=== PATIENT | female | born 1940 | race Two or more races ===

== ENCOUNTER 2016-06-06 20:40 | Inpatient (IN) | payer MEDICARE, OTHER ==
[~2016-06-06] VITALS: Ht 162.6 cm; Wt 146.0 kg
[~2016-06-06 20:40] MED LIST: ADV25050 INH; AMLO5TAB4 PO; ASPI-664 PO; BEN25 PO; ESCI5TAB PO; EZET10TA3 PO; FLEC100T PO; FURO20TA3 PO; HYDR-3498 PO; LORA1TAB PO; LOSA50TA6 PO; MONT10TA21 PO; MTF1000T PO; NASO17 NASAL; POTA20TA15 PO; SITA100T8 PO; TIOT18CA IH
[2016-06-06 20:45] VITALS: TEMP 97.8
[2016-06-06] MEDS ORDERED: ASPIRIN 81 MG TAB PO STA (21:00)
[2016-06-06] MEDS ORDERED: ALBUTEROL 0.083% (NEB) 2.5 MG/3 ML AMP HHN STA (21:22)
[2016-06-06] MEDS ORDERED: NITROGLYCERIN (SL) 0.4 MG TAB SL ONE (21:30)
[2016-06-06] MEDS ORDERED: IPRATROPIUM (NEB) 0.5 MG/2.5 ML AMP HHN ONE (21:30)
[2016-06-06 21:33] LABS: ADD SCAN DIFF NO; BASOPHIL # 0.1 10^3/ul (0.0-0.1); BASOPHILS % 0.5 % (0.0-2.0); EOSINOPHILS # 0.2 10^3/ul (0.0-0.5); EOSINOPHILS % 2.2 % (0.0-7.0); HEMATOCRIT 37.2 % (37.0-47.0); HEMOGLOBIN 11.5 g/dl (12.0-16.0); LYMPHOCYTES # 2.3 10^3/ul (0.8-2.9); LYMPHOCYTES % 20.8 % (15.0-51.0); MEAN CORPUSCULAR HEMOGLOBIN 28.8 pg (29.0-33.0); MEAN CORPUSCULAR HGB CONC 30.9 g/dl (32.0-37.0); MEAN PLATELET VOLUME 12.2 fl (7.4-10.4); MONOCYTE # 0.9 10^3/ul (0.3-0.9); MONOCYTES % 7.6 % (0.0-11.0); NEUTROPHIL # 7.7 10^3/ul (1.6-7.5); NEUTROPHILS % 68.5 % (39.0-77.0); PLATELET COUNT 307 10^3/UL (140-415); RED CELL DISTRIBUTION WIDTH 13.2 % (11.5-14.5); WHITE BLOOD COUNT 11.2 10^3/ul (4.8-10.8)
[2016-06-06 21:49] LABS: CHLORIDE 94 mmol/L (97-110); SODIUM 136 mmol/L (135-144)
[2016-06-06 21:50] LABS: POTASSIUM 4.5 mmol/L (3.5-5.1)
[2016-06-06 21:51] LABS: INR 1.02; PROTIME 13.4 Sec (12.2-14.2)
[2016-06-06 21:52] LABS: CREATININE 0.86 mg/dl (0.44-1.00)
[2016-06-06 21:53] LABS: ANION GAP 17 (8-16); BLOOD UREA NITROGEN 20 mg/dl (7-20); CALCIUM 9.7 mg/dl (8.4-10.2); CARBON DIOXIDE 30 mmol/L (21-31); GLUCOSE 149 mg/dl (70-220); PARTIAL THROMBOPLASTIN TIME 30.3 Sec (25.0-35.0)
[2016-06-06 22:02] LABS: B-TYPE NATRIURETIC PEPTIDE 618 PG/ML (0-450)
[2016-06-06 22:08] LABS: TROPONIN-I < 0.012 ng/ml (0.00-0.12)
[2016-06-06] MEDS ORDERED: ONDANSETRON 4 MG INJ IV STA (22:10)
[2016-06-06] MEDS ORDERED: OXYCODONE/ACETAMINOPHEN (10/325) TAB PO ONE (22:30)
[2016-06-06] MEDS ORDERED: morphine 10 MG INJ IV ONE (22:30)
[2016-06-06] MEDS ORDERED: DIPHENHYDRAMINE 50 MG INJ IV ONE (22:30)
[2016-06-06] MEDS ORDERED: LORAZEPAM 2 MG INJ IV ONE (23:00)
[2016-06-07] VITALS (13 sets, daily range): BP systolic 103–148; BP diastolic 51–68; PULSE 50–63; RESP 17–20; Ht 162.6 cm; Wt 146.0 kg
--- NOTE | 2016-06-07 00:04 | RADRPT ---
PROCEDURE: XR, Chest. CLINICAL INDICATION: Chest pain. TECHNIQUE: AP chest COMPARISON: Chest, 10/24/2015. FINDINGS: There is no acute infiltrate in the lungs. No pleural effusion. The heart is enlarged with interst itial pulmonary edema and pulmonary venous congestion. There is calcified atherosclerosis of the ao rtic arch. IMPRESSION: 1. Cardiomegaly with interstitial pulmonary edema/pulmonary venous congestion. Calcified atheroscl erosis of the aortic arch. RPTAT: GG .Frankie Aruajo MD, Date Time Electronically viewed and signed by .Frankie Araujo MD, MD on 06/07/2016 00:04 .Y/
[2016-06-07] MEDS ORDERED: ALBUTEROL 0.083% (NEB) 2.5 MG/3 ML AMP HHN STA (00:43)
--- NOTE | 2016-06-07 00:53 | HP ---
Date/Time of Note Date/Time of Note DATE: 06/07/16 TIME: 00:52 Assessment/Plan VTE Prophylaxis VTE Prophylaxis Intervention: ambulation, anti-embolic stocking VTE Contraindication Reason: peripheral vascular disease Lines/Catheters (ICD-10 Req.) IV Catheter Type (from Nrs): [place] line still needed: No Bernstein in Place (from Nrsg): Yes Cont'd bernstein catheter reason: urinary retention Diagnosis/Etiology Respiratory Failure Acuity: acute on chronic Respiratory Failure Inclusion: hypoxia & hypercapnia Assessment/Plan Assessment/Plan 1. Congestive heart failure exacerbation. 2. Morbid obesity; Obesity hypopnea syndrome. 3. Bradycardia 4. Hypertension, now normotensive. 5. History of having palpitations-now bradycardic; lowest rate 45- now 63bpm. 6. History of having bronchial asthma, now stable. 7. Wound of the postsurgical scar, right-sided abdomen, healed. 8. Status post cholecystectomy. 9. Postmenstrual syndrome. 10. Anxiety. 11. Claustrophobia. 12. Dyslipidemia. 13. Diabetes type 2. 14. History of having carbon dioxide retention. 15. Anemia of chronic disease with recent loss. 16. History of chronic kidney disease, improved. 17. History of having low iron and low magnesium levels. 18. Pain syndrome. 19. Major depression. 20. Altered level of consciousness. 21. Diverticulitis. 22. Left-sided chest pain. 23.carbon dioxide narcosis (Hx of) 24.Trophic changes of both legs with change of a color. 25.Pilling of the skin of nailbeds of both hands with deformities and trace of blood and swelling.26. 26.11 years bedridden 27.Decubitus of t he left gluteal area with mild redness of the calcaneal skin 28.Severe deconditioning 29.Daytime sleepiness 30.Severe krupa of knees, hips ans ankle joints 31.Calcaneal pain. 32.Umbilical reducible hernia 4-5cm in diameter.Postsurgical. 333.Chronic norco,percocet, and other controlled substance user. Time Spent one hour 20 minues. HPI/ROS Admit Date/Time Admit Date/Time Severe progressive shortness of breath for 4 days with sleepiness and bradycardia and uncontrolled bp; left-sided and substernal chest pain. She received nitro spray as well as aspirin in route. nausea-vomiting. 11 years in bedridden condition. Unable to take p.o. medications. When it become intolerable with cp, family decided to call 911. ROS Subjective hx not possible: other (difficulty to express. tearful. Suffering. "My mistake is to be born; My punidhment is to be alive". She expressed hairsh motto. Discussed the soullessness of the statement... 10 minutes.) Constitutional: chills, diaphoresis, disoriented, nausea, poor po, weight change, No fatigue, No febrile, No improved, No no complaints, No other Eyes: discharge, No no complaints, No other, No pain, No redness, No visual change ENT: congestion, dysphagia, sore throat, No bleeding, No discharge, No no complaints, No other, No pain Respiratory: cough, pleuritic pain, shortness of breath, No no complaints, No other, No pain, No sputum, No wheezing Cardiovascular: chest pain, lightheadedness, orthopenea, palpitations, paroxysmal nocturnal dyspnea, No edema, No no complaints, No other Gastrointestinal: constipation, decreased appetite, flatus, nausea, passing stool, No blood, No diarrhea, No no complaints, No other, No pain, No vomiting Genitourinary: dysuria, other (unable tos control urination.) Musculoskeletal: back pain, bone/joint pain, neck pain, restricted range of motion, swelling, No no complaints, No other Skin: bruising, erythema, pruritis, rash, skin lesions, No laceration, No no complaints, No other Neurologic: confusion, dizziness, focal-weakness, No headache, No no complaints, No other, No seizure, No syncope Endocrine: dry skin, other (didn't check.), polydypsia, polyuria, temp intolerance, weight change Lymphatic: No adenopathy, No lymphadema, No no complaints, No other, No tender nodes Psychological: anxiety, confusion, depression, No nl mood/affect, No no complaints, No other, No suicidal Immunologic: pruritis, urticaria PMH/Family/Social Past Medical History Medical History: angina, colitis, congestive heart failure, coronary artery disease, diabetes, diverticulitis, GERD, GI bleed, high cholesterol, hypertension, hypothyroid, pancreatitis, peptic ulcer disease, urinary tract infection Past Surgical History Past Surgical Hx: other (big midline abdominal postsurgiccal scar with umbilical hernia.) Family History Significant Family History: asthma, heart disease, COPD, diabetes, hypertension , lung disease, renal disease, vascular disease Social History Alcohol Use: none Smoking Status: Former smoker Drug Use: none Exam/Review of Systems Vital Signs Vitals Vital Signs Date Time Temp Pulse Resp B/P Pulse Ox O2 Delivery O2 Flow Rate FiO2 06/06/16 23:20 58 20 93 21 06/06/16 20:45 97.8 154/62 Room Air Exam Constitutional: alert, distress, frail, other (tearful, depressed,forgetful, bedridden more than 11 years. Last 2 years only with the help of a children she is able to sit in a wheelchair. Now they can't do that eather. no shower for months. Unasble to perform.), well developed, No non-verbal, No oriented Psych: anxiety, confusion, depression, nl mood/affect (depressed.) Head: atraumatic, normocephalic, No hematomas, No lacerations, No other Eyes: EOMI, nl conjunctiva (pale.), nl lids, No PERRL, No fundi, disc, No icteric, No nl sclera, No other ENMT: mucosa pink and moist, nl external ears & nose, nl lips & teeth ( denturesd.), nl nasal mucosa & septum, tympanic membranes Neck: bruits, jvd, non-tender, thyromegaly Respiratory: clear to auscultation, congested cough, diminished breath sounds, intercostal retraction, labored breathing Cardiovascular: bruits, edema, jugular venous distention (JVD), murmurs/extra sounds, systolic murmur Gastrointestinal: ascites, bowel sounds, distended, nl liver, spleen, other ( extreamely weak anterior abdminal wal comparing with previouse admission. Pannus got bigger. Erythematouse skin over the folded areas of the skin partially covered with powder. Left gluteal area decubitus is covers by dressing. Painful and hot knees bilaterally. Painful calcaneal areas and hips and elbows bilaterally. Multiple foldings of the skin all ocveer the body.), rebound or guarding, soft, surgical scars (midline. Umbilical painful reducable scar.) Genitourinary - Male: CVA tenderness, No discharge, No nl penis, No nl scrotum , No other Extremities: calf tenderness, clubbing, edema, other (All fingernail beds with deformities,inflammation and piiled skin.), pitting pedal edema, tenderness Neurological: confused, focal weakness (righrt more th an left.), lethargic, numbness, reflexes (deminished.) Skin: diaphoresis, ecchymosis, nl turgor (severely defcreased all over.), puncture, rash or lesions, No laceration, No other Lymph: No enlarged, No nl lymph nodes, No nontender, No other Labs Result Diagram: 06/06/16 2100 06/06/16 2100 Medications Medications Current Medications Amlodipine Besylate (Norvasc) 5 mg DAILY PRN PO ELEVATED BLOOD PRESSURE; Start 06/07/16 at 01:00; Status UNV Aspirin (Halfprin) 81 mg DAILY PO ; Start 06/07/16 at 09:00; Status UNV Diphenhydramine HCl (Benadryl) 25 mg QHS PRN PO ITCHING; Start 06/07/16 at 01: 00; Status UNV Escitalopram Oxalate (Lexapro) 81 mg DAILY PO ; Start 06/07/16 at 09:00; Status UNV EZETIMIBE (Zetia) 10 mg DAILY PO ; Start 06/07/16 at 09:00; Status UNV Flecainide Acetate (Tambocor) 100 mg BID PO ; Start 06/07/16 at 01:00; Status UNV Furosemide (Lasix) 20 mg BID PO ; Start 06/07/16 at 01:00; Status UNV Acetaminophen/ Hydrocodone Bitart ([place] (5/325)) 1 tab Q8 PRN PO PAIN; Start 06/07/16 at 01:00; Status UNV Lorazepam (Ativan) 1 mg BID PRN PO ANXIETY; Start 06/07/16 at 01:00; Status UNV Losartan Potassium (Cozaar) 50 mg BID PO ; Start 06/07/16 at 01:00; Status UNV Metformin HCl (Glucophage) 1,000 mg BID PO ; Start 06/07/16 at 01:00; Status UNV Montelukast Sodium (Singulair) 10 mg HS PO ; Start 06/07/16 at 21:00; Status UNV Potassium Chloride (Klor-Con 20) 20 meq DAILY PO ; Start 06/07/16 at 09:00; Status UNV Salmeterol Xinafoate/ Fluticasone (Advair 250/50 Diskus) 1 inh BID INH ; Start 06/07/16 at 01:00; Status UNV Tiotropium [place] (Spiriva) 1 inh DAILY INH ; Start 06/07/16 at 09:00; Status UNV Miscellaneous Information 1 spray DAILY NASAL ; Start 06/07/16 at 09:00; Status UNV Miscellaneous Information 100 mg DAILY PO ; Start 06/07/16 at 09:00; Status UNV STONE HERNANDEZ MD Jun 07, 2016 00:53
[2016-06-07] MEDS ORDERED: metFORMIN 500 MG TAB PO SCH (01:00)
[2016-06-07] MEDS ORDERED: AMLODIPINE 5 MG TAB PO PRN (01:00)
[2016-06-07] MEDS: SALMETEROL/FLUTICASONE 250/50 INHA INH SCH ×3 (01:00→20:38)
[2016-06-07] MEDS ORDERED: FLECAINIDE 100 MG TAB PO SCH (01:00)
[2016-06-07] MEDS ORDERED: ACETAMINOPHEN 325 MG TAB PO PRN (01:00)
[2016-06-07] MEDS ORDERED: DIPHENHYDRAMINE 25 MG CAP PO PRN (01:00)
[2016-06-07] MEDS ORDERED: METHYLPREDNISOLONE 125 MG INJ IV ONE (01:00)
[2016-06-07] MEDS ORDERED: LORAZEPAM 1 MG TAB PO PRN (01:00)
[2016-06-07] MEDS ORDERED: ONDANSETRON 4 MG INJ IV PRN (01:00)
--- NOTE | 2016-06-07 01:03 | ERA ---
ER Documentation Chief Complaint Date/Time DATE: 06/07/16 TIME: 00:57 Chief Complaint BIBA RA 39, CP X4 days,received aspirin 162 mg PO & nitro 1 spray,bodyaches HPI This 76-year-old female presented emergency room with progressive shortness of breath for 4 days. She also has left-sided and substernal chest pain. She received nitro spray as well as aspirin in route. According to paramedics her blood pressure was extremely high. She has a history of diastolic heart failure as well as COPD. She says that she also has some nausea. Denies vomiting abdominal pain or fevers ROS All systems reviewed and are negative except as per history of present illness. Medications Home Meds Active Scripts Furosemide* (Furosemide*) 20 Mg Tablet, 20 MG PO BID, #30 TAB Prov:TUCKER JUNIOR MD 08/15/15 Reported Medications Diphenhydramine Hcl* (Benadryl*) 25 Mg Cap, 25 MG PO QHS Y for ITCHING, CAP 10/21/15 Losartan Potassium* (Losartan Potassium*) 50 Mg Tablet, 50 MG PO BID, TAB 08/08/15 Lorazepam* (Lorazepam*) 1 Mg Tablet, 1 MG PO BID Y for ANXIETY, #30 TAB 04/15/15 Escitalopram Oxalate* (Lexapro*) 5 Mg Tablet, PO DAILY, #30 TAB 04/15/15 Amlodipine Besylate* (Norvasc*) 5 Mg Tablet, 5 MG PO DAILY Y for ELEVATED BLOOD PRESSURE, TAB 01/04/15 Potassium Chloride* (K-Dur*) 20 Meq Tab.prt.sr, 20 MEQ PO DAILY, TAB.SA 07/21/14 Hydrocodone Bit-Acetaminophen* ([place]*) 5-325 Mg Tab, 1 TAB PO Q8 Y for PAIN, TAB 07/11/14 Tiotropium [place]* (Spiriva*) 18 Mcg Cap.w.dev, 1 INH IH DAILY, EA 07/11/14 Ezetimibe* (Zetia*) 10 Mg Tablet, 10 MG PO DAILY, TAB 07/11/14 Metformin* (Glucophage*) 1,000 Mg Tablet, 1000 MG PO BID, TAB 07/11/14 Sitagliptin* (Januvia*) 100 Mg Tablet, 100 MG PO DAILY, TAB 07/11/14 Montelukast Sodium* (Singulair*) 10 Mg Tablet, 10 MG PO HS, TAB 07/11/14 Mometasone Furoate* (Nasonex*) 50 Mcg/[place] - 17 Gm [place].pump, 1 SPRAY NASAL DAILY, SPRAY 07/11/14 Salmeterol Xinaf/Fluticasone* (Advair*) 250-50 Diskus Inhaler, 1 INH INH BID, INH 07/11/14 Flecainide Acetate* (Flecainide Acetate*) 100 Mg Tablet, 100 MG PO BID, TAB 07/11/14 Aspirin (Low Dose Aspirin) 81 Mg Tablet.dr, 81 MG PO DAILY 07/11/14 Allergies Allergies: Coded Allergies: No Known Allergy (Verified , 10/21/15) PMhx/Soc History of Surgery: Yes (CHOLECYSTECTOMY) Anesthesia Reaction: No Hx Neurological Disorder: No Hx Respiratory Disorders: No Hx Cardiac Disorders: Yes (HTN,AV BLOCK,CHF) Hx Psychiatric Problems: No Hx Miscellaneous Medical Probl: Yes ( anxiety, DM) Hx Alcohol Use: No Hx Substance Use: No Hx Tobacco Use: No Smoking Status: Never smoker Physical Exam Vitals Vital Signs Date Time Temp Pulse Resp B/P Pulse Ox O2 Delivery O2 Flow Rate FiO2 06/06/16 23:20 58 20 93 21 06/06/16 20:45 97.8 57 18 154/62 95 Room Air 06/06/16 20:43 97.8 57 18 177/77 93 Physical Exam Const: [] Moderate distress, intermittent tachypnea, morbidly obese Head: Atraumatic Eyes: Normal Conjunctiva ENT: Normal External Ears, Nose and Mouth. Neck: Full range of motion..~ No meningismus. Resp: Decreased breath sounds bilaterally, mild expiratory wheezes audible through thick layer of subcutaneous tissue.. Cardio: Regular bradycardia, no murmurs Abd: Soft, obese, non tender, non distended. Normal bowel sounds Skin: No petechiae or rashes Back: No midline or flank tenderness Ext: No cyanosis, or edema. Difficult to determine because of patient's extreme habitus. Neur: Awake and alert and oriented 3, no focal deficit Psych: Normal Mood and Affect Result Diagram: 06/06/16 2100 06/06/16 2100 Results 24 hrs Laboratory Tests Test 06/06/16 21:00 White Blood Count 11.210^3/ul Red Blood Count 4.0010^6/ul Hemoglobin 11.5g/dl Hematocrit 37.2% Mean Corpuscular Volume 93.0fl Mean Corpuscular Hemoglobin 28.8pg Mean Corpuscular Hemoglobin Concent 30.9g/dl Red Cell Distribution Width 13.2% Platelet Count 32480^3/UL Mean Platelet Volume 12.2fl Neutrophils % 68.5% Lymphocytes % 20.8% Monocytes % 7.6% Eosinophils % 2.2% Basophils % 0.5% Nucleated Red Blood Cells % 0.0/100WBC Neutrophils # 7.710^3/ul Lymphocytes # 2.310^3/ul Monocytes # 0.910^3/ul Eosinophils # 0.210^3/ul Basophils # 0.110^3/ul Nucleated Red Blood Cells # 0.010^3/ul Prothrombin Time 13.4Sec Prothrombin Time Ratio 1.0 INR International Normalized Ratio 1.02 Activated Partial Thromboplast Time 30.3Sec Sodium Level 136mmol/L Potassium Level 4.5mmol/L Chloride Level 94mmol/L Carbon Dioxide Level 30mmol/L Anion Gap 17 Blood Urea Nitrogen 20mg/dl Creatinine 0.86mg/dl Glucose Level 149mg/dl Calcium Level 9.7mg/dl Troponin I < 0.012ng/ml B-Type Natriuretic Peptide 618PG/ML Current Medications Medications (Trade) Dose Ordered Sig/[place] Route PRN Reason Start Time Stop Time Status Last Admin Dose Admin Aspirin (Aspirin) 162 mg ONCE STAT PO 06/06/16 21:00 06/06/16 21:03 DC 06/06/16 21:29 Nitroglycerin (Nitroglycerin (Sl Tab) 0.4 Mg) 1 tab ONCE ONCE SL 06/06/16 21:30 06/06/16 21:31 DC 06/06/16 21:29 Albuterol (Proventil 0.083% (Neb)) 5 mg ONCE STAT HHN 06/06/16 21:22 06/06/16 21:24 DC 06/06/16 23:20 Ipratropium [place] (Atrovent 0.02% (Neb)) 0.5 mg ONCE ONCE HHN 06/06/16 21:30 06/06/16 21:31 DC 06/06/16 23:20 Morphine Sulfate (morphine) 6 mg ONCE ONCE IV 06/06/16 22:30 06/06/16 22:30 DC Oxycodone/ Acetaminophen (Endocet (10/ 325)) 1 tab ONCE ONCE PO 06/06/16 22:30 06/06/16 22:31 DC 06/06/16 22:17 Ondansetron HCl (Zofran Inj) 4 mg ONCE STAT IV 06/06/16 22:10 06/06/16 22:11 DC Diphenhydramine HCl (Benadryl) 25 mg ONCE ONCE IV 06/06/16 22:30 06/06/16 22:31 DC 06/06/16 22:17 Lorazepam (Ativan) 1 mg ONCE ONCE IV 06/06/16 23:00 06/06/16 23:01 DC 06/06/16 23:11 Ondansetron HCl (Zofran Inj) 4 mg ER BRIDGE PRN IV NAUSEA AND/OR VOMITING 06/07/16 01:00 06/08/16 00:59 Acetaminophen (Tylenol Tab) 650 mg ER BRIDGE PRN PO MILD PAIN/FEVER 06/07/16 01:00 06/08/16 00:59 Amlodipine Besylate (Norvasc) 5 mg DAILY PRN PO ELEVATED BLOOD PRESSURE 06/07/16 01:00 UNV Aspirin (Halfprin) 81 mg DAILY PO 06/07/16 09:00 UNV Diphenhydramine HCl (Benadryl) 25 mg QHS PRN PO ITCHING 06/07/16 01:00 UNV Escitalopram Oxalate (Lexapro) 81 mg DAILY PO 06/07/16 09:00 UNV EZETIMIBE (Zetia) 10 mg DAILY PO 06/07/16 09:00 UNV Flecainide Acetate (Tambocor) 100 mg BID PO 06/07/16 01:00 UNV Furosemide (Lasix) 20 mg BID PO 06/07/16 01:00 UNV Acetaminophen/ Hydrocodone Bitart ([place] (5/325)) 1 tab Q8 PRN PO PAIN 06/07/16 01:00 UNV Lorazepam (Ativan) 1 mg BID PRN PO ANXIETY 06/07/16 01:00 UNV Losartan Potassium (Cozaar) 50 mg BID PO 06/07/16 01:00 UNV Metformin HCl (Glucophage) 1,000 mg BID PO 06/07/16 01:00 UNV Montelukast Sodium (Singulair) 10 mg HS PO 06/07/16 21:00 UNV Potassium Chloride (Klor-Con 20) 20 meq DAILY PO 06/07/16 09:00 UNV Salmeterol Xinafoate/ Fluticasone (Advair 250/50 Diskus) 1 inh BID INH 06/07/16 01:00 UNV Tiotropium [place] (Spiriva) 1 inh DAILY INH 06/07/16 09:00 UNV Miscellaneous Information 1 spray DAILY NASAL 06/07/16 09:00 UNV Miscellaneous Information 100 mg DAILY PO 06/07/16 09:00 UNV Albuterol (Proventil 0.083% (Neb)) 2.5 mg Q8HWA RESP THERAPY STAT HHN 06/07/16 00:43 06/07/16 00:44 UNV Ipratropium [place] (Atrovent 0.02% (Neb)) 0.5 mg Q8H RESP THERAPY ONCE HHN 06/07/16 08:00 06/07/16 08:01 UNV Procedures/MDM Elderly female with COPD exacerbation and chest pain. History of cardiac problems and heart failure. Patient was given aspirin. She is also given albuterol and Atrovent breathing treatment helped improve her shortness of breath but did not completely relieve it. Chest pain somewhat helped by nitroglycerin. Patient also given morphine to help relieve her chest pain. She still remains intermittently tachypneic. Given Solu-Medrol 125 mg IV. She will benefit from admission for further treatment of her COPD exacerbation and serial trending of troponins. Spoke with Dr. Ennis who will be admitting the patient EKG interpretation: Sinus bradycardia rate of 51, right bundle branch block, indeterminate axis, no ST elevations or depressions concerning for acute ischemia shelter monitor interpretation: Sinus bradycardia without arrhythmia Chest x-ray interpretation: Engorgement of pulmonary vasculature consistent with congestive heart failure, no pneumothorax, no infiltrates, no fractures fractures Departure Diagnosis: Primary Impression: Chest pain Additional Impression: COPD exacerbation Condition: ELIOT Castillo DO Jun 07, 2016 01:03
[2016-06-07 02:04] LABS: D-DIMER 800.37 ng/ml (<460)
[2016-06-07] MEDS: LOSARTAN 50 MG TAB PO SCH ×3 (02:05→20:39)
[2016-06-07] MEDS: FUROSEMIDE 20 MG TAB PO SCH ×2 (02:06→08:53)
[2016-06-07] MEDS: HYDROCODONE/APAP (5/325) TAB PO PRN ×3 (02:06→18:28)
[2016-06-07] MEDS: ENOXAPARIN 100 MG/ML SYG SC SCH (02:15)
[2016-06-07 02:48] LABS: IRON 43 ug/dl (35-150); MAGNESIUM 1.6 mg/dl (1.7-2.5)
[2016-06-07 02:49] LABS: Allen Test ACCEPTAB; Arterial Base Excess 5.3 mmol/L (-3.0-3); Arterial COHb 0.7 % (0.0-3.0); Arterial Fraction of Oxyhgb 98.1 % (93.0-99.0); Arterial HCO3 32.1 mmol/L (22.0-26.0); Arterial MetHb 0.3 % (0.0-1.5); Arterial Total Hemglobin 14.3 g/dl (12.0-18.0); MODE NASAL CANNULA
[2016-06-07 02:57] LABS: TOTAL IRON BINDING CAPACITY 299 ug/dl (241-421)
[2016-06-07] MEDS ORDERED: INSULIN REGULAR 10 ML INJ SC SCH ×2 (07:00)
[2016-06-07 07:22] LABS: CREATINE KINASE 163 IU/L (23-200)
[2016-06-07 07:25] LABS: CK-MB 0.57 ng/ml (0.0-2.4)
[2016-06-07 07:35] LABS: TROPONIN-I < 0.012 ng/ml (0.00-0.12)
[2016-06-07] MEDS ORDERED: MAGNESIUM SULFATE 2 GM/50 ML 50 ML IVPB ONE (08:00)
[2016-06-07] MEDS ORDERED: IPRATROPIUM (NEB) 0.5 MG/2.5 ML AMP HHN ONE (08:00)
[2016-06-07] MEDS: INSULIN ASPART [NOVOLOG] 3 ML PEN SC SCH ×4 (08:50→18:35)
[2016-06-07] MEDS: FLUTICASONE 0.05% 16 GM NAS SPRAY NASAL SCH (08:50)
[2016-06-07] MEDS: POTASSIUM CHLORIDE (SR) 20 MEQ TAB PO SCH (08:51)
[2016-06-07] MEDS: EZETIMIBE 10 MG TAB PO SCH (08:51)
[2016-06-07] MEDS: TIOTROPIUM 18 MCG CAPSULE INHA DEV INH SCH (08:51)
[2016-06-07] MEDS: metFORMIN 500 MG TAB PO SCH ×2 (08:52→17:17)
[2016-06-07] MEDS: LINAGLIPTIN 5 MG TABLET PO SCH (08:52)
[2016-06-07] MEDS: ESCITALOPRAM 10 MG TAB PO SCH (08:52)
[2016-06-07] MEDS: ASPIRIN (EC) 81 MG TAB PO SCH (08:52)
[2016-06-07] MEDS: FLECAINIDE 100 MG TAB PO SCH ×2 (08:53→22:10)
[2016-06-07] MEDS ORDERED: ESCITALOPRAM 10 MG TAB PO SCH (09:00)
[2016-06-07] MEDS ORDERED: NON-FORMULARY/PATIENT OWN MED (Sitagliptin* (Januvia*) 100 MG) PO SCH (09:00)
[2016-06-07] MEDS ORDERED: NON-FORMULARY/PATIENT OWN MED (Mometasone Furoate* (Nasonex*) 1 SPRAY) NASAL SCH (09:00)
[2016-06-07] MEDS: MAGNESIUM SULFATE 2 GM/50 ML 50 ML IVPB SCH (11:23)
[2016-06-07 12:48] LABS: CREATINE KINASE 131 IU/L (23-200)
[2016-06-07 12:58] LABS: CK-MB 0.43 ng/ml (0.0-2.4)
[2016-06-07 12:59] LABS: TROPONIN-I < 0.012 ng/ml (0.00-0.12)
[2016-06-07] MEDS: SOD FERRIC GLUC COMPLX 125 MG in SOD CHLORIDE 0.9% 100 ML IVPB SCH (14:04)
[2016-06-07] MEDS ORDERED: BUPIVACAINE 0.5%/EPI (SDV) 30 ML INJ INJ ONE (15:30)
[2016-06-07] MEDS ORDERED: BETAMET NA PHOS/AC(6 MG/ML) 5ML INJ INJ ONE (15:30)
[2016-06-07] MEDS: FUROSEMIDE 40 MG INJ IV SCH ×2 (15:49→22:12)
--- NOTE | 2016-06-07 16:10 | RADRPT ---
PROCEDURE: LEFT knee x-ray CLINICAL INDICATION: krupa TECHNIQUE: AP and lateral views of the knee were obtained. COMPARISON: None FINDINGS: No acute fracture or dislocation is seen. There is normal mineralization. Various deformity of the left knee is again noted with severe degenerative changes involving the med ial greater than lateral and patellofemoral compartments including joint space narrowing and osteoph ytes. Subchondral sclerosis of the medial compartment is again noted. There is no joint effusion. There is no significant soft tissue swelling. IMPRESSION: Stable varus deformity and severe degenerative changes of the medial greater than lateral and patell ofemoral compartments. RPTAT: EE Physician Richard Date Time Electronically viewed and signed by Physician Richard on 06/07/2016 16:09 /
--- NOTE | 2016-06-07 16:11 | RADRPT ---
PROCEDURE: Pelvis x-ray CLINICAL INDICATION: Pain TECHNIQUE: Single AP view of the pelvis performed. COMPARISON: None FINDINGS: Normal mineralization, architecture and alignment. No fracture or osseous lesion identified. Mild to moderate narrowing of bilateral hip joints is noted. Unremarkable soft tissues. RPTAT: AA IMPRESSION: Mild to moderate narrowing of bilateral hip joints. Physician Richard Date Time Electronically viewed and signed by Kuldip Shaikh Physician on 06/07/2016 16:11 RA/
--- NOTE | 2016-06-07 16:11 | RADRPT ---
PROCEDURE: XR Ankle. CLINICAL INDICATION: Pain TECHNIQUE: AP, oblique and lateral views of the left ankle were performed. COMPARISON: None. FINDINGS: There is normal mineralization. Pes planus is noted. No acute fracture or osseous lesion is identified. The joints are normal. The soft tissues are unremarkable. RPTAT: AA IMPRESSION: Pes planus. Otherwise, unremarkable radiographs of the right ankle. Kuldip Shaikh Physician Date Time Electronically viewed and signed by Kuldip Shaikh Physician on 06/07/2016 16:10 RA/
--- NOTE | 2016-06-07 16:12 | RADRPT ---
PROCEDURE: XR Ankle. CLINICAL INDICATION: Pain TECHNIQUE: AP, oblique and lateral views of the left ankle were performed. COMPARISON: None. FINDINGS: There is normal mineralization. There is pes planus. No acute fracture or osseous lesion is identified. The joints are normal. The soft tissues are unremarkable. RPTAT: AA IMPRESSION: Pes planus. Physician Richard Date Time Electronically viewed and signed by Kuldip Shaikh Physician on 06/07/2016 16:12 RA/
--- NOTE | 2016-06-07 16:12 | RADRPT ---
PROCEDURE: XR Foot. CLINICAL INDICATION: krupa TECHNIQUE: AP, lateral and oblique views of the right foot was obtained. The images were reviewed on a PACS workstation. COMPARISON: None. FINDINGS: The bones of the foot appear intact, with no evidence of acute fracture, dislocation, or subluxation . There is pes planus. The joint spaces are preserved. Bone mineralization is normal. No significant soft tissue swelling is seen. IMPRESSION: Pes planus. RPTAT: EE Physician Richard Date Time Electronically viewed and signed by Physician Richard on 06/07/2016 16:12 RA/
--- NOTE | 2016-06-07 17:00 | CONS ---
DATE OF ADMISSION: 06/07/2016 DATE OF CONSULTATION: 06/07/2016 HISTORY OF PRESENT ILLNESS: The patient is a 76-year-old female with obvious morbid obesity who was admitted through the emergency room on 06/04/2016 when she was brought into the emergency room jaqui use of the progressively worsening shortness of breath of 4 days' duration and she was also having s ome left-sided chest pain. She is known to have COPD, along with a history of congestive heart fail ure. She also has hypertension, diabetes and had a cholecystectomy in the past. Orthopedic surgery was consulted because of the obvious pain involving her knee and hip. PHYSICAL EXAMINATION: My examination revealed a morbidly obese female who seems to be doing somewha t better with the medical treatment. There was a mild pain during the range of motion of the right hip and there was an obvious again varus bilaterally with painful limit of motion of both knees. Th ere was tenderness over the medial joint line and the range of motion was limited with pain. DIAGNOSTIC STUDIES: X-rays of both knees obtained in 08/10/2015 was available for my review and it revealed the presence of degenerative osteoarthritis of both knees, which is advanced. The conditio n of both hips was visible and the CT scan of the abdomen obtained on 06/2014 and right hip is showi ng degenerative osteoarthritis of moderate degree. DIAGNOSTIC IMPRESSION: 1. Morbid obesity. 2. Degenerative osteoarthritis of both knees, advanced. 3. Degenerative osteoarthritis of the right hip moderately advanced. RECOMMENDATIONS FOR TREATMENT: SHE is not a candidate for any aggressive surgical intervention at t his time and a steroid injection of both knees can be carried out for symptomatic relief for now. Dictated By: ELIZABET AZUL/JESUS Conf#: [id number] DID#: [id number]
[2016-06-07] MEDS: MONTELUKAST 10 MG TAB PO SCH (20:39)
[2016-06-08] VITALS (12 sets, daily range): BP systolic 103–128; BP diastolic 53–62; PULSE 52–63; RESP 18–20
[2016-06-08] MEDS: ENOXAPARIN 100 MG/ML SYG SC SCH (01:12)
[2016-06-08] MEDS: HYDROCODONE/APAP (5/325) TAB PO PRN (02:48)
[2016-06-08] MEDS ORDERED: HYDROCODONE/APAP (5/325) TAB PO ONE (04:48)
[2016-06-08] MEDS: FUROSEMIDE 40 MG INJ IV SCH ×3 (06:03→21:55)
[2016-06-08] MEDS ORDERED: GLUCOSE GEL 15 GRAM TUBE PO PRN ×2 (07:00)
[2016-06-08] MEDS ORDERED: GLUCAGON 1 MG INJ IM PRN (07:00)
[2016-06-08] MEDS ORDERED: DEXTROSE 50% 50 ML SYRINGE IV PRN ×2 (07:00)
[2016-06-08] MEDS ORDERED: GLUCOSE GEL 15 GRAM TUBE BUCCAL PRN (07:00)
[2016-06-08] MEDS: INSULIN ASPART [NOVOLOG] 3 ML PEN SC SCH ×6 (07:25→18:40)
[2016-06-08] MEDS ORDERED: BUPIVACAINE 0.5%/EPI (SDV) 30 ML INJ INJ SCH (08:00)
[2016-06-08] MEDS ORDERED: BETAMET NA PHOS/AC(6 MG/ML) 5ML INJ INJ SCH (08:00)
[2016-06-08] MEDS: MAGNESIUM SULFATE 2 GM/50 ML 50 ML IVPB SCH (08:34)
[2016-06-08] MEDS: SALMETEROL/FLUTICASONE 250/50 INHA INH SCH ×2 (08:34→20:43)
[2016-06-08] MEDS: EZETIMIBE 10 MG TAB PO SCH (08:34)
[2016-06-08] MEDS: metFORMIN 500 MG TAB PO SCH ×3 (08:34→18:36)
[2016-06-08] MEDS: FLECAINIDE 100 MG TAB PO SCH ×2 (08:36→20:46)
[2016-06-08] MEDS: ESCITALOPRAM 10 MG TAB PO SCH (08:36)
[2016-06-08] MEDS: POTASSIUM CHLORIDE (SR) 20 MEQ TAB PO SCH (08:36)
[2016-06-08] MEDS: ASPIRIN (EC) 81 MG TAB PO SCH (08:37)
[2016-06-08] MEDS: FLUTICASONE 0.05% 16 GM NAS SPRAY NASAL SCH (08:37)
[2016-06-08] MEDS: LINAGLIPTIN 5 MG TABLET PO SCH (08:37)
[2016-06-08] MEDS: LOSARTAN 50 MG TAB PO SCH ×2 (08:37→20:45)
[2016-06-08] MEDS: TIOTROPIUM 18 MCG CAPSULE INHA DEV INH SCH (13:05)
[2016-06-08] MEDS: SOD FERRIC GLUC COMPLX 125 MG in SOD CHLORIDE 0.9% 100 ML IVPB SCH (13:07)
--- NOTE | 2016-06-08 13:39 | PN ---
DATE: 06/08/2016 The additional x-rays were reviewed. Mild degenerative changes in the hip joint on the right side. Obvious degenerative osteoarthritis involving the knee joint. No degenerative changes on the left ankle joint. No degenerative changes in the right ankle joint. The x-ray of the foot did not show any abnormal findings. Her both knees were injected with Celestone and Marcaine. Dictated By: ELIZABET AZUL/JESUS Conf#: [id number] DID#: [id number]
--- NOTE | 2016-06-08 14:16 | PN ---
Date/Time of Note Date/Time of Note DATE: 06/08/16 TIME: 14:12 Assessment/Plan VTE Prophylaxis VTE Prophylaxis Intervention: ambulation, LMWH VTE Contraindication Reason: peripheral vascular disease Lines/Catheters IV Catheter Type (from Nrsg): [place] [employer] [place] line still needed: No Urinary Cath still in place: No Reason Cath still needed: urinary retention Assessment/Plan Assessment/Plan 1. Congestive heart failure exacerbation. 2. Morbid obesity; Obesity hypopnea syndrome. 3. Bradycardia 4. Hypertension, now normotensive. 5. History of having palpitations-now bradycardic; lowest rate 45- now 63bpm. 6. History of having bronchial asthma, now stable. 7. Wound of the postsurgical scar, right-sided abdomen, healed. 8. Status post cholecystectomy. 9. Postmenstrual syndrome. 10. Anxiety. 11. Claustrophobia. 12. Dyslipidemia. 13. Diabetes type 2. 14. History of having carbon dioxide retention. 15. Anemia of chronic disease with recent loss. 16. History of chronic kidney disease, improved. 17. History of having low iron and low magnesium levels. 18. Pain syndrome. 19. Major depression. 20. Altered level of consciousness. 21. Diverticulitis. 22. Left-sided chest pain. 23.carbon dioxide narcosis (Hx of) 24.Trophic changes of both legs with change of a color. 25.Pilling of the skin of nailbeds of both hands with deformities and trace of blood and swelling.26. 26.11 years bedridden 27.Decubitus of t he left gluteal area with mild redness of the calcaneal skin 28.Severe deconditioning 29.Daytime sleepiness 30.Severe krupa of knees, hips ans ankle joints 31.Calcaneal pain. 32.Umbilical reducible hernia 4-5cm in diameter.Postsurgical. 333.Chronic norco,percocet, and other contro Cont'd Hospitalization Reason: chf,pain,deconditioning,dementia. Subjective 24 Hr Interval Summary Free Text/Dictation Sob improved. I am tired. I cant hold neither urine or feces. Subjective hx not possible: pt critical Constitutional: chills, diaphoresis, disoriented, poor po, No febrile, No improved, No no complaints, No other, No requiring IVF, No requiring O2 Eyes: No discharge, No no complaints, No other, No pain, No redness, No visual change ENT: No bleeding, No congestion, No discharge, No dysphagia, No no complaints, No other, No pain, No sore throat Respiratory: cough, pleuritic pain, shortness of breath, No no complaints, No other, No pain, No sputum, No wheezing Cardiovascular: chest pain, lightheadedness, orthopenea, palpitations, paroxysmal nocturnal dyspnea Gastrointestinal: decreased appetite, diarrhea, flatus, pain, No blood, No constipation, No nausea, No no complaints, No other, No passing stool, No vomiting Genitourinary: dysuria, other (incontinence.), No bleeding, No discharge, No flank pain, No hematuria, No no complaints Musculoskeletal: back pain, bone/joint pain, neck pain, No no complaints, No other, No restricted range of motion, No swelling Exam/Review of Systems Vital Signs Vitals Vital Signs Date Time Temp Pulse Resp B/P Pulse Ox O2 Delivery O2 Flow Rate FiO2 06/08/16 13:30 2.0 06/08/16 12:46 52 06/08/16 11:22 97.4 20 123/59 98 06/08/16 02:57 Nasal Cannula 06/06/16 23:20 21 Intake and Output 06/07/16 06/07/16 06/08/16 15:00 23:00 07:00 Intake Total 600 ml 400 ml Balance 600 ml 400 ml Exam Constitutional: alert, distress, frail, obese, oriented (x 2, not followint a time.), well developed, No non-verbal, No other Psych: anxiety, confusion, depression, No nl mood/affect, No no complaints, No other, No suicidal Head: No atraumatic, No hematomas, No lacerations, No normocephalic, No other Eyes: EOMI, PERRL, nl lids, No fundi, disc, No icteric, No nl conjunctiva, No nl sclera, No other ENMT: No intubated, No mucosa pink and moist, No nl external ears & nose, No nl lips & teeth, No nl nasal mucosa & septum, No other, No tympanic membranes Neck: bruits, jvd, nuchal rigidity, thyromegaly, No masses, No non-tender, No other, No supple Respiratory: congested cough, crackles/rales, No clear to auscultation, No diminished breath sounds, No intercostal retraction, No labored breathing, No normal air movement, No other, No respirations, No tactile fremitus, No wheezing Cardiovascular: bruits, edema, irregular rhythm, jugular venous distention (JVD ), No S3, No S4, No diastolic murmur, No gallop, No murmurs/extra sounds, No nl pulses, No other, No regular rate and rhythm, No rub, No systolic murmur Gastrointestinal: bowel sounds, distended, No ascites, No firm, No hepatomegaly, No mass, No nl liver, spleen, No non- tender, No other, No rebound or guarding, No soft, No splenomegaly, No surgical scars, No tender Musculoskeletal: joint tenderness, muscle tone, muscle weakness, No nl extremities to inspection, No nl gait and stance, No other, No range of motion, No spine non-tender, No swelling Neurological: [employer] HELPER II-XII intact, confused, focal weakness, numbness, unresponsive, No DTR's symmetric, No lethargic, No nl mental status, No nl speech, No nl strength, No other, No reflexes Skin: diaphoresis Results Result Diagram: 06/06/16 2100 06/06/16 2100 Results 24 hrs Laboratory Tests Test 06/07/16 17:15 06/07/16 18:30 06/08/16 07:57 06/08/16 12:33 Bedside Glucose 98 105 111 77 Test 06/08/16 13:04 Bedside Glucose 109 Medications Medications Current Medications Amlodipine Besylate (Norvasc) 5 mg DAILY PRN PO ELEVATED BLOOD PRESSURE; Start 06/07/16 at 01:00 Aspirin (Halfprin) 81 mg DAILY PO Last administered on 06/08/16 08:37; Admin Dose 81 MG; Start 06/07/16 at 09:00 Diphenhydramine HCl (Benadryl) 25 mg QHS PRN PO ITCHING; Start 06/07/16 at 01: 00 EZETIMIBE (Zetia) 10 mg DAILY PO Last administered on 06/08/16 08:34; Admin Dose 10 MG; Start 06/07/16 at 09:00 Lorazepam (Ativan) 1 mg BID PRN PO ANXIETY; Start 06/07/16 at 01:00 Losartan Potassium (Cozaar) 50 mg BID PO Last administered on 06/08/16 08:37; Admin Dose 50 MG; Start 06/07/16 at 01:00 Montelukast Sodium (Singulair) 10 mg HS PO Last administered on 06/07/16 20:39 ; Admin Dose 10 MG; Start 06/07/16 at 21:00 Potassium Chloride (Klor-Con 20) 20 meq DAILY PO Last administered on 08:36; Admin Dose 20 MEQ; Start 06/07/16 at 09:00 Salmeterol Xinafoate/ Fluticasone (Advair 250/50 Diskus) 1 inh BID INH Last administered on 06/08/16 08:34; Admin Dose 1 INH; Start 06/07/16 at 01:00 Tiotropium [place] (Spiriva) 1 inh DAILY INH Last administered on 06/08/16 13: 05; Admin Dose 1 INH; Start 06/07/16 at 09:00 Enoxaparin Sodium (Lovenox) 75 mg Q24H SC Last administered on 06/08/16 01:12 ; Admin Dose 75 MG; Start 06/07/16 at 01:00 Furosemide (Lasix) 40 mg Q8 IV Last administered on 06/08/16 13:07; Admin Dose 40 MG; Start 06/07/16 at 15:00; Stop 06/09/16 at 06:01 Escitalopram Oxalate (Lexapro) 10 mg DAILY PO Last administered on 06/08/16 08 :36; Admin Dose 10 MG; Start 06/07/16 at 09:00 Flecainide Acetate (Tambocor) 100 mg BID PO Last administered on 06/08/16 08: 36; Admin Dose 100 MG; Start 06/07/16 at 09:00 Linagliptin (Tradjenta) 5 mg DAILY PO Last administered on 06/08/16 08:37; Admin Dose 5 MG; Start 06/07/16 at 09:00 Fluticasone Propionate 2 spray 2 spray DAILY NASAL Last administered on 08:37; Admin Dose 2 SPRAY; Start 06/07/16 at 09:00 Magnesium Sulfate 50 ml @ 25 mls/hr DAILY IVPB Last administered on 06/08/16 08:34; Admin Dose 25 MLS/HR; Start 06/07/16 at 11:00; Stop 06/10/16 at 10:59 Ferric Sodium Gluconate Complex/ Sodium Chloride (Ferrlecit/NS) 110 ml @ 110 mls/hr Q24H IVPB Last administered on 06/08/16 13:07; Admin Dose 110 MLS/HR; Start 06/07/16 at 13:00; Stop 06/11/16 at 13:59 Furosemide (Lasix) 20 mg BID PO ; Start 06/09/16 at 21:00 Betamethasone Acet/Betameth SodPhos ([place] Soluspan) 30 mg ONCE INJ Last administered on 06/08/16 13:06; Admin Dose 30 MG; Start 06/08/16 at 08:00; Stop 06/08/16 at 18:00 Bupivacaine HCl/ Epinephrine Bitart ([place] 0.5%/ Epi (Sdv)) 30 ml ONCE INJ Last administered on 06/08/16 13:06; Admin Dose 30 ML; Start 06/08/16 at 08:00 ; Stop 06/08/16 at 18:00 Acetaminophen/ Hydrocodone Bitart ([place] (7.5-325)) 1 tab Q6H PRN PO PAIN LEVEL 4-7; Start 06/08/16 at 05:00 Miscellaneous Information 1 ea NOTE XX ; Start 06/08/16 at 07:00 Glucose (Glutose) 15 gm Q15M PRN PO DECREASED GLUCOSE; Start 06/08/16 at 07:00 Glucose (Glutose) 22.5 gm Q15M PRN PO DECREASED GLUCOSE; Start 06/08/16 at 07: 00 Dextrose (D50w Syringe) 25 ml Q15M PRN IV DECREASED GLUCOSE; Start 06/08/16 at 07:00 Dextrose (D50w Syringe) 50 ml Q15M PRN IV DECREASED GLUCOSE; Start 06/08/16 at 07:00 Glucagon (Glucagen) 1 mg Q15M PRN IM DECREASED GLUCOSE; Start 06/08/16 at 07:00 Glucose (Glutose) 15 gm Q15M PRN BUCCAL DECREASED GLUCOSE; Start 06/08/16 at 07 :00 STONE HERNANDEZ MD Jun 08, 2016 14:16
[2016-06-08] MEDS: HYDROCODONE/APAP (7.5/325) TAB PO PRN ×2 (15:28→21:54)
[2016-06-08] MEDS: MONTELUKAST 10 MG TAB PO SCH (20:43)
[2016-06-09] VITALS (12 sets, daily range): BP systolic 117–132; BP diastolic 56–63; PULSE 61–71; RESP 17–20
[2016-06-09] MEDS: ENOXAPARIN 100 MG/ML SYG SC SCH (01:45)
[2016-06-09] MEDS: HYDROCODONE/APAP (7.5/325) TAB PO PRN ×4 (04:18→22:35)
[2016-06-09] MEDS: FUROSEMIDE 40 MG INJ IV SCH (05:23)
[2016-06-09 06:49] LABS: ADD SCAN DIFF NO
[2016-06-09 06:52] LABS: BASOPHILS % 0.1 % (0.0-2.0); HEMATOCRIT 38.9 % (37.0-47.0); HEMOGLOBIN 11.7 g/dl (12.0-16.0); LYMPHOCYTES # 1.3 10^3/ul (0.8-2.9); MEAN CORPUSCULAR HEMOGLOBIN 28.2 pg (29.0-33.0); MEAN CORPUSCULAR HGB CONC 30.1 g/dl (32.0-37.0); MEAN CORPUSCULAR VOLUME 93.7 fl (82.0-101.0); MEAN PLATELET VOLUME 12.2 fl (7.4-10.4); MONOCYTE # 0.2 10^3/ul (0.3-0.9); MONOCYTES % 1.7 % (0.0-11.0); NEUTROPHIL # 10.4 10^3/ul (1.6-7.5); NEUTROPHILS % 86.7 % (39.0-77.0); PLATELET COUNT 283 10^3/UL (140-415); RED BLOOD COUNT 4.15 10^6/ul (4.20-5.40); RED CELL DISTRIBUTION WIDTH 13.4 % (11.5-14.5)
--- NOTE | 2016-06-09 07:00 | PN ---
Date/Time of Note Date/Time of Note DATE: 06/09/16 TIME: 06:59 Assessment/Plan VTE Prophylaxis VTE Prophylaxis Intervention: ambulation, anti-embolic stocking VTE Contraindication Reason: peripheral vascular disease Lines/Catheters IV Catheter Type (from Nrsg): [place] line still needed: No Urinary Cath still in place: No Reason Cath still needed: urinary retention Assessment/Plan Assessment/Plan 1. Congestive heart failure exacerbation. 2. Morbid obesity; Obesity hypopnea syndrome. 3. Bradycardia 4. Hypertension, now normotensive. 5. History of having palpitations-now bradycardic; lowest rate 45- now 63bpm. 6. History of having bronchial asthma, now stable. 7. Wound of the postsurgical scar, right-sided abdomen, healed. 8. Status post cholecystectomy. 9. Postmenstrual syndrome. 10. Anxiety. 11. Claustrophobia. 12. Dyslipidemia. 13. Diabetes type 2. 14. History of having carbon dioxide retention. 15. Anemia of chronic disease with recent loss. 16. History of chronic kidney disease, improved. 17. History of having low iron and low magnesium levels. 18. Pain syndrome. 19. Major depression. 20. Altered level of consciousness. 21. Diverticulitis. 22. Left-sided chest pain. 23.carbon dioxide narcosis (Hx of) 24.Trophic changes of both legs with change of a color. 25.Pilling of the skin of nailbeds of both hands with deformities and trace of blood and swelling.26. 26.11 years bedridden 27.Decubitus of t he left gluteal area with mild redness of the calcaneal skin 28.Severe deconditioning 29.Daytime sleepiness 30.Severe krupa of knees, hips, shoulders and ankle joints 31.Calcaneal pain. 32.Umbilical reducible hernia 4-5cm in diameter.Postsurgical. 333.Chronic norco,percocet, and other controlled substances. Cont'd Hospitalization Reason: paiin and lethargy with sob. Subjective 24 Hr Interval Summary Free Text/Dictation Unable to move. Painful knees and ankles. Unable to hold a urine and feces. Constitutional: diaphoresis, disoriented, poor po, No chills, No febrile, No improved, No no complaints, No other, No requiring IVF, No requiring O2 ENT: congestion, dysphagia, No bleeding, No discharge, No no complaints, No other, No pain, No sore throat Respiratory: pleuritic pain, shortness of breath, No cough, No no complaints, No other, No pain, No sputum, No wheezing Cardiovascular: chest pain, orthopenea, palpitations, No edema, No lightheadedness, No no complaints, No other, No paroxysmal nocturnal dyspnea Gastrointestinal: constipation, flatus, passing stool, No blood, No decreased appetite, No diarrhea, No nausea, No no complaints, No other, No pain, No vomiting Genitourinary: No bleeding, No discharge, No dysuria, No flank pain, No hematuria, No no complaints, No other Skin: bruising, erythema, pruritis, rash, skin lesions, No laceration, No no complaints, No other Neurologic: confusion, dizziness, headache, No focal-weakness, No no complaints, No other, No seizure, No syncope Exam/Review of Systems Vital Signs Vitals Vital Signs Date Time Temp Pulse Resp B/P Pulse Ox O2 Delivery O2 Flow Rate FiO2 06/09/16 04:30 67 06/09/16 03:57 97.9 20 132/63 95 06/09/16 01:07 2.0 06/09/16 00:55 Nasal Cannula 06/06/16 23:20 21 Intake and Output 06/08/16 06/08/16 06/09/16 15:00 23:00 07:00 Intake Total 960 ml 460 ml Balance 960 ml 460 ml Exam Constitutional: alert, distress, frail, oriented, well developed, No non-verbal, No obese, No other Psych: anxiety, confusion, depression, No nl mood/affect, No no complaints, No other, No suicidal Head: atraumatic, No hematomas, No lacerations, No normocephalic, No other Eyes: EOMI, PERRL, nl lids, No fundi, disc, No icteric, No nl conjunctiva, No nl sclera, No other ENMT: nl lips & teeth Neck: bruits, jvd, No masses, No non-tender, No nuchal rigidity, No other, No supple, No thyromegaly Respiratory: congested cough, diminished breath sounds, intercostal retraction , No clear to auscultation, No crackles/rales, No labored breathing, No normal air movement, No other, No respirations, No tactile fremitus, No wheezing Cardiovascular: bruits, edema, irregular rhythm, nl pulses, systolic murmur, No S3, No S4, No diastolic murmur, No gallop, No jugular venous distention ( JVD), No murmurs/extra sounds, No other, No regular rate and rhythm, No rub Gastrointestinal: distended, firm, nl liver, spleen, soft, No ascites, No bowel sounds, No hepatomegaly, No mass, No non-tender, No other, No rebound or guarding, No splenomegaly, No surgical scars, No tender Musculoskeletal: joint tenderness, muscle tone, muscle weakness, other (needs 2 people to move.) Neurological: 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 PACKER II-XII 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 (decreased hearing.), confused, lethargic, reflexes, No DTR's symmetric, No focal weakness, No nl mental status, No nl speech, No nl strength, No numbness, No other, No unresponsive Skin: diaphoresis, No ecchymosis, No laceration, No nl turgor, No other, No puncture, No rash or lesions Lymph: No enlarged, No nl lymph nodes, No nontender, No other Results Result Diagram: 06/06/16 2100 06/06/16 2100 Results 24 hrs Laboratory Tests Test 06/08/16 07:57 06/08/16 12:33 06/08/16 13:04 06/08/16 16:50 Bedside Glucose 111 77 109 166 Test 06/08/16 18:34 Bedside Glucose 224 H Medications Medications Current Medications Amlodipine Besylate (Norvasc) 5 mg DAILY PRN PO ELEVATED BLOOD PRESSURE; Start 06/07/16 at 01:00 Aspirin (Halfprin) 81 mg DAILY PO Last administered on 06/08/16 08:37; Admin Dose 81 MG; Start 06/07/16 at 09:00 Diphenhydramine HCl (Benadryl) 25 mg QHS PRN PO ITCHING; Start 06/07/16 at 01: 00 EZETIMIBE (Zetia) 10 mg DAILY PO Last administered on 06/08/16 08:34; Admin Dose 10 MG; Start 06/07/16 at 09:00 Lorazepam (Ativan) 1 mg BID PRN PO ANXIETY Last administered on 06/09/16 01:39 ; Admin Dose 1 MG; Start 06/07/16 at 01:00 Losartan Potassium (Cozaar) 50 mg BID PO Last administered on 06/08/16 20:45; Admin Dose 50 MG; Start 06/07/16 at 01:00 Montelukast Sodium (Singulair) 10 mg HS PO Last administered on 06/08/16 20:43 ; Admin Dose 10 MG; Start 06/07/16 at 21:00 Potassium Chloride (Klor-Con 20) 20 meq DAILY PO Last administered on 08:36; Admin Dose 20 MEQ; Start 06/07/16 at 09:00 Salmeterol Xinafoate/ Fluticasone (Advair 250/50 Diskus) 1 inh BID INH Last administered on 06/08/16 20:43; Admin Dose 1 INH; Start 06/07/16 at 01:00 Tiotropium [place] (Spiriva) 1 inh DAILY INH Last administered on 06/08/16 13: 05; Admin Dose 1 INH; Start 06/07/16 at 09:00 Enoxaparin Sodium (Lovenox) 75 mg Q24H SC Last administered on 06/09/16 01:45 ; Admin Dose 75 MG; Start 06/07/16 at 01:00 Escitalopram Oxalate (Lexapro) 10 mg DAILY PO Last administered on 06/08/16 08 :36; Admin Dose 10 MG; Start 06/07/16 at 09:00 Flecainide Acetate (Tambocor) 100 mg BID PO Last administered on 06/08/16 20: 46; Admin Dose 100 MG; Start 06/07/16 at 09:00 Linagliptin (Tradjenta) 5 mg DAILY PO Last administered on 06/08/16 08:37; Admin Dose 5 MG; Start 06/07/16 at 09:00 Fluticasone Propionate 2 spray 2 spray DAILY NASAL Last administered on 08:37; Admin Dose 2 SPRAY; Start 06/07/16 at 09:00 Magnesium Sulfate 50 ml @ 25 mls/hr DAILY IVPB Last administered on 06/08/16 08:34; Admin Dose 25 MLS/HR; Start 06/07/16 at 11:00; Stop 06/10/16 at 10:59 Ferric Sodium Gluconate Complex/ Sodium Chloride (Ferrlecit/NS) 110 ml @ 110 mls/hr Q24H IVPB Last administered on 06/08/16 13:07; Admin Dose 110 MLS/HR; Start 06/07/16 at 13:00; Stop 06/11/16 at 13:59 Furosemide (Lasix) 20 mg BID PO ; Start 06/09/16 at 21:00 Acetaminophen/ Hydrocodone Bitart ([place] (7.5-325)) 1 tab Q6H PRN PO PAIN LEVEL 4-7 Last administered on 06/09/16 04:18; Admin Dose 1 TAB; Start at 05:00 Miscellaneous Information 1 ea NOTE XX ; Start 06/08/16 at 07:00 Glucose (Glutose) 15 gm Q15M PRN PO DECREASED GLUCOSE; Start 06/08/16 at 07:00 Glucose (Glutose) 22.5 gm Q15M PRN PO DECREASED GLUCOSE; Start 06/08/16 at 07: 00 Dextrose (D50w Syringe) 25 ml Q15M PRN IV DECREASED GLUCOSE; Start 06/08/16 at 07:00 Dextrose (D50w Syringe) 50 ml Q15M PRN IV DECREASED GLUCOSE; Start 06/08/16 at 07:00 Glucagon (Glucagen) 1 mg Q15M PRN IM DECREASED GLUCOSE; Start 06/08/16 at 07:00 Glucose (Glutose) 15 gm Q15M PRN BUCCAL DECREASED GLUCOSE; Start 06/08/16 at 07 :00 STONE HERNANDEZ MD Jun 09, 2016 07:00
[2016-06-09 07:05] LABS: ALBUMIN 3.9 g/dl (3.3-4.9); ALBUMIN/GLOBULIN RATIO 1.02; CALCIUM 9.8 mg/dl (8.4-10.2); CREATININE 1.01 mg/dl (0.44-1.00); POTASSIUM 5.1 mmol/L (3.5-5.1); TOTAL PROTEIN 7.7 g/dl (6.1-8.1)
[2016-06-09] MEDS: INSULIN ASPART [NOVOLOG] 3 ML PEN SC SCH ×4 (07:25→17:51)
[2016-06-09] MEDS: TIOTROPIUM 18 MCG CAPSULE INHA DEV INH SCH (08:33)
[2016-06-09] MEDS: SALMETEROL/FLUTICASONE 250/50 INHA INH SCH ×2 (08:33→22:30)
[2016-06-09] MEDS: FLUTICASONE 0.05% 16 GM NAS SPRAY NASAL SCH (08:34)
[2016-06-09] MEDS: FLECAINIDE 100 MG TAB PO SCH ×2 (08:36→22:31)
[2016-06-09] MEDS: EZETIMIBE 10 MG TAB PO SCH (08:36)
[2016-06-09] MEDS: ASPIRIN (EC) 81 MG TAB PO SCH (08:36)
[2016-06-09] MEDS: LOSARTAN 50 MG TAB PO SCH ×2 (08:36→22:39)
[2016-06-09] MEDS: ESCITALOPRAM 10 MG TAB PO SCH (08:37)
[2016-06-09] MEDS: POTASSIUM CHLORIDE (SR) 20 MEQ TAB PO SCH ×2 (08:37→08:39)
[2016-06-09] MEDS: LINAGLIPTIN 5 MG TABLET PO SCH (08:37)
--- NOTE | 2016-06-09 08:38 | RADRPT ---
PROCEDURE: XR Chest. CLINICAL INDICATION: CHF TECHNIQUE: An AP view of the chest was obtained. COMPARISON: Chest x-ray dated 06/06/2016 FINDINGS: There is prominence of the interstitial and central pulmonary vascular markings. No pleural effusi on or pneumothorax is seen. The cardiomediastinal silhouette is moderately enlarged. Calcifications are seen within the aortic arch. The osseous structures demonstrate senescent changes. IMPRESSION: 1. Findings suggestive of pulmonary vascular congestion. Lung aeration is significantly improved w hen compared to the prior examination. 2. Moderate cardiomegaly and aortic atherosclerosis. RPTAT: HH .Jody Nash MD, MD Date Time Electronically viewed and signed by .Jody Nash MD, on 06/09/2016 08:38 .G/
[2016-06-09] MEDS ORDERED: metFORMIN 500 MG TAB PO SCH (09:13)
[2016-06-09] MEDS: MAGNESIUM SULFATE 2 GM/50 ML 50 ML IVPB SCH (09:54)
[2016-06-09] MEDS: SOD FERRIC GLUC COMPLX 125 MG in SOD CHLORIDE 0.9% 100 ML IVPB SCH (12:00)
--- NOTE | 2016-06-09 13:00 | CONS ---
Date/Time of Note Date/Time of Note DATE: 06/09/16 TIME: 12:47 Assessment/Plan Assessment/Plan Chief Complaint/Hosp Course Acute on chronic diastolic heart failure: EF preserved. S/p aggressive diuresis , now close to euvolemic. Chest pain: has overall body pain. Trops negative, EKG unrevealing. No symptoms currently. For now treat medically. H/o unknown cardiac arrhythmia: On flecainide but with h/o heart failure, may need to reconsider. 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 No arrhythmias on tele DM HTN Bedbound state -continue lasix 20mg PO BID -ASA, zetia -ok for flecainide for now -amlodipine, cozaar Problems: Consultation Date/Type/Reason Date of Consultation: Jun 09, 2016 Type of Consultation: Cardiology Reason for Consultation CHF Referring Provider: STONE HERNANDEZ MD Hx of Present Illness 76 yo F with a h/o diastolic heart failure, cardiac arrhythmia (unclear but likely not afib/flutter as not on anticoagulation) on flecainide, DM, HTN, HL, bedbound state for 10+ years, who presented secondary to SOB and chest pain. The pt notes that she has trouble sleeping and cannot lay flat. She wakes up sometimes gasping for air. She mostly complains of generalized pain throughout her body including legs, arms, shoulders, hips, chest. In terms of the chest pain she notes it is pressure like and associated with her SOB. Currently she feels well except for her generalized pain but she asks "am I going to ?". Pt was diuresed aggressively for the past 2 days and is now switched to PO lasix. No arrhythmias on tele. per HPI Past Medical History Medical History: angina, colitis, congestive heart failure, coronary artery disease, diabetes, diverticulitis, GERD, GI bleed, high cholesterol, hypertension, hypothyroid, pancreatitis, peptic ulcer disease, urinary tract infection Past Surgical History Past Surgical Hx: other (big midline abdominal postsurgiccal scar with umbilical hernia.) Social History Alcohol Use: none Smoking Status: Former smoker Drug Use: none Exam/Review of Systems Vital Signs Vitals Vital Signs Date Time Temp Pulse Resp B/P Pulse Ox O2 Delivery O2 Flow Rate FiO2 06/09/16 12:13 63 06/09/16 11:24 98.1 18 121/57 96 06/09/16 01:07 2.0 06/09/16 00:55 Nasal Cannula 06/06/16 23:20 21 Intake and Output 06/08/16 06/08/16 06/09/16 15:00 23:00 07:00 Intake Total 960 ml 460 ml Balance 960 ml 460 ml Exam Constitutional: alert, oriented Head: atraumatic, normocephalic ENMT: nl external ears & nose Neck: No jvd (difficult to examine but appears ~7cm) Respiratory: clear to auscultation, diminished breath sounds, No crackles/rales Cardiovascular: edema (trace), regular rate and rhythm, No systolic murmur Gastrointestinal: non-tender, soft Neurological: nl mental status, nl speech Results EKG: sinus, RBBB Result Diagram: 06/09/1628 06/09/16627 Results 24 hrs Laboratory Tests Test 06/08/16 13:04 06/08/16 16:50 06/08/16 18:34 06/09/16 06:28 Bedside Glucose 109 166 224 H White Blood Count 12.0 H Red Blood Count 4.15 L Hemoglobin 11.7 L Hematocrit 38.9 Mean Corpuscular Volume 93.7 Mean Corpuscular Hemoglobin 28.2 L Mean Corpuscular Hemoglobin Concent 30.1 L Red Cell Distribution Width 13.4 Platelet Count 283 Mean Platelet Volume 12.2 H Neutrophils % 86.7 H Lymphocytes % 11.0 L Monocytes % 1.7 Eosinophils % 0.0 Basophils % 0.1 Nucleated Red Blood Cells % 0.0 Neutrophils # 10.4 H Lymphocytes # 1.3 Monocytes # 0.2 L Eosinophils # 0.0 Basophils # 0.0 Nucleated Red Blood Cells # 0.0 Sodium Level 136 Potassium Level 5.1 Chloride Level 96 L Carbon Dioxide Level 32 H Anion Gap 13 Blood Urea Nitrogen 37 H Creatinine 1.01 H Glucose Level 194 Calcium Level 9.8 Total Bilirubin 0.0 L Direct Bilirubin 0.00 Indirect Bilirubin 0.0 Aspartate Amino Transf (AST/SGOT) 26 Alanine Aminotransferase (ALT/SGPT) 26 Alkaline Phosphatase 102 Total Protein 7.7 Albumin 3.9 Globulin 3.80 H Albumin/Globulin Ratio 1.02 Test 06/09/16 08:30 06/09/16 11:26 Bedside Glucose 168 248 H Medications Medications Current Medications Amlodipine Besylate (Norvasc) 5 mg DAILY PRN PO ELEVATED BLOOD PRESSURE; Start 06/07/16 at 01:00 Aspirin (Halfprin) 81 mg DAILY PO Last administered on 06/09/16 08:36; Admin Dose 81 MG; Start 06/07/16 at 09:00 Diphenhydramine HCl (Benadryl) 25 mg QHS PRN PO ITCHING; Start 06/07/16 at 01: 00 EZETIMIBE (Zetia) 10 mg DAILY PO Last administered on 06/09/16 08:36; Admin Dose 10 MG; Start 06/07/16 at 09:00 Lorazepam (Ativan) 1 mg BID PRN PO ANXIETY Last administered on 06/09/16 01:39 ; Admin Dose 1 MG; Start 06/07/16 at 01:00 Losartan Potassium (Cozaar) 50 mg BID PO Last administered on 06/09/16 08:36; Admin Dose 50 MG; Start 06/07/16 at 01:00 Montelukast Sodium (Singulair) 10 mg HS PO Last administered on 06/08/16 20:43 ; Admin Dose 10 MG; Start 06/07/16 at 21:00 Potassium Chloride (Klor-Con 20) 20 meq DAILY PO Last administered on 08:36; Admin Dose 20 MEQ; Start 06/07/16 at 09:00 Salmeterol Xinafoate/ Fluticasone (Advair 250/50 Diskus) 1 inh BID INH Last administered on 06/09/16 08:33; Admin Dose 1 INH; Start 06/07/16 at 01:00 Tiotropium [place] (Spiriva) 1 inh DAILY INH Last administered on 06/09/16 08: 33; Admin Dose 1 INH; Start 06/07/16 at 09:00 Enoxaparin Sodium (Lovenox) 75 mg Q24H SC Last administered on 06/09/16 01:45 ; Admin Dose 75 MG; Start 06/07/16 at 01:00 Escitalopram Oxalate (Lexapro) 10 mg DAILY PO Last administered on 06/09/16 08 :37; Admin Dose 10 MG; Start 06/07/16 at 09:00 Flecainide Acetate (Tambocor) 100 mg BID PO Last administered on 06/09/16 08: 36; Admin Dose 100 MG; Start 06/07/16 at 09:00 Linagliptin (Tradjenta) 5 mg DAILY PO Last administered on 06/09/16 08:37; Admin Dose 5 MG; Start 06/07/16 at 09:00 Fluticasone Propionate 2 spray 2 spray DAILY NASAL Last administered on 08:34; Admin Dose 2 SPRAY; Start 06/07/16 at 09:00 Magnesium Sulfate 50 ml @ 25 mls/hr DAILY IVPB Last administered on 06/09/16 09:54; Admin Dose 25 MLS/HR; Start 06/07/16 at 11:00; Stop 06/10/16 at 10:59 Ferric Sodium Gluconate Complex/ Sodium Chloride (Ferrlecit/NS) 110 ml @ 110 mls/hr Q24H IVPB Last administered on 06/09/16 12:00; Admin Dose 110 MLS/HR; Start 06/07/16 at 13:00; Stop 06/11/16 at 13:59 Furosemide (Lasix) 20 mg BID PO ; Start 06/09/16 at 21:00 Acetaminophen/ Hydrocodone Bitart ([place] (7.5-325)) 1 tab Q6H PRN PO PAIN LEVEL 4-7 Last administered on 06/09/16 09:54; Admin Dose 1 TAB; Start at 05:00 Miscellaneous Information 1 ea NOTE XX ; Start 06/08/16 at 07:00 Glucose (Glutose) 15 gm Q15M PRN PO DECREASED GLUCOSE; Start 06/08/16 at 07:00 Glucose (Glutose) 22.5 gm Q15M PRN PO DECREASED GLUCOSE; Start 06/08/16 at 07: 00 Dextrose (D50w Syringe) 25 ml Q15M PRN IV DECREASED GLUCOSE; Start 06/08/16 at 07:00 Dextrose (D50w Syringe) 50 ml Q15M PRN IV DECREASED GLUCOSE; Start 06/08/16 at 07:00 Glucagon (Glucagen) 1 mg Q15M PRN IM DECREASED GLUCOSE; Start 06/08/16 at 07:00 Glucose (Glutose) 15 gm Q15M PRN BUCCAL DECREASED GLUCOSE; Start 06/08/16 at 07 :00 KEVIN CHOU Jun 09, 2016 12:59
[2016-06-09] MEDS: metFORMIN 500 MG TAB PO SCH (17:45)
[2016-06-09] MEDS: MONTELUKAST 10 MG TAB PO SCH (22:31)
[2016-06-09] MEDS: FUROSEMIDE 20 MG TAB PO SCH (22:32)
[2016-06-10] VITALS (12 sets, daily range): BP systolic 119–145; BP diastolic 57–67; PULSE 59–70; RESP 16–18
[2016-06-10] MEDS: ENOXAPARIN 100 MG/ML SYG SC SCH (01:42)
[2016-06-10] MEDS: HYDROCODONE/APAP (7.5/325) TAB PO PRN ×4 (04:05→22:40)
--- NOTE | 2016-06-10 07:31 | PN ---
Date/Time of Note Date/Time of Note DATE: 06/10/16 TIME: 07:23 Assessment/Plan VTE Prophylaxis VTE Prophylaxis Intervention: ambulation, anti-embolic stocking VTE Contraindication Reason: peripheral vascular disease Lines/Catheters IV Catheter Type (from Nrsg): [place] line still needed: No Urinary Cath still in place: No Reason Cath still needed: urinary retention Assessment/Plan Assessment/Plan 1. Congestive heart failure exacerbation. 2. Morbid obesity; Obesity hypopnea syndrome. 3. Bradycardia 4. Hypertension, now normotensive. 5. History of having palpitations-now bradycardic; lowest rate 45- now 63bpm. 6. History of having bronchial asthma, now stable. 7. Wound of the postsurgical scar, right-sided abdomen, healed. 8. Status post cholecystectomy. 9. Postmenstrual syndrome. 10. Anxiety. 11. Claustrophobia. 12. Dyslipidemia. 13. Diabetes type 2. 14. History of having carbon dioxide retention. 15. Anemia of chronic disease with recent loss. 16. History of chronic kidney disease, improved. 17. History of having low iron and low magnesium levels. 18. Pain syndrome. 19. Major depression. 20. Altered level of consciousness. 21. Diverticulitis. 22. Left-sided chest pain. 23.carbon dioxide narcosis (Hx of) 24.Trophic changes of both legs with change of a color. 25.Pilling of the skin of nailbeds of both hands with deformities and trace of blood and swelling.26. 26.11 years bedridden 27.Decubitus of t he left gluteal area with mild redness of the calcaneal skin 28.Severe deconditioning 29.Daytime sleepiness 30.Severe krupa of right shoulder more than left shoulder and both heels. Improved pain of knees, hips joints 31.Calcaneal pain. 32.Umbilical reducible hernia 4-5cm in diameter.Postsurgical. 333.Chronic norco,percocet, and other control substances. Cont'd Hospitalization Reason: pain,c02 retention. Subjective 24 Hr Interval Summary Free Text/Dictation Severe right shoulder pain. Even slight movements are exacerbating pain. The movements of the shoulder are not as painful as right sided.Sleepless at night. Confused and sleepy during daytime. Subjective hx not possible: pt critical, other (Sleeps with open mouth.Evidence of apnea in my presense. Superficial sleep.) Constitutional: diaphoresis, disoriented, requiring O2, No chills, No febrile, No improved, No no complaints, No other, No poor po, No requiring IVF Eyes: No discharge, No no complaints, No other, No pain, No redness, No visual change ENT: congestion, No bleeding, No discharge, No dysphagia, No no complaints, No other, No pain , No sore throat Respiratory: cough, No no complaints, No other, No pain, No pleuritic pain, No shortness of breath, No sputum, No wheezing Cardiovascular: chest pain, orthopenea, palpitations, paroxysmal nocturnal dyspnea, No edema, No lightheadedness, No no complaints, No other Gastrointestinal: diarrhea, flatus, nausea, pain, passing stool, No blood, No constipation, No decreased appetite, No no complaints, No other , No vomiting Musculoskeletal: back pain, bone/joint pain Skin: bruising, erythema, No laceration, No no complaints, No other, No pruritis, No rash, No skin lesions Exam/Review of Systems Vital Signs Vitals Vital Signs Date Time Temp Pulse Resp B/P Pulse Ox O2 Delivery O2 Flow Rate FiO2 06/10/16 04:44 59 06/10/16 03:45 97.7 18 120/57 98 06/10/16 02:59 2.0 06/09/16 20:00 Nasal Cannula 06/09/16 17:53 28 Intake and Output 06/09/16 06/09/16 06/10/16 15:00 23:00 07:00 Intake Total 1460 ml 60 ml Balance 1460 ml 60 ml Exam Constitutional: frail, other (lethargic.), well developed, No alert, No distress, No non-verbal, No obese, No oriented Psych: anxiety, confusion, depression, No nl mood/affect, No no complaints, No other, No suicidal Head: atraumatic, No hematomas, No lacerations, No normocephalic, No other Eyes: EOMI, PERRL, nl lids, No fundi, disc, No icteric, No nl conjunctiva, No nl sclera, No other ENMT: No intubated, No mucosa pink and moist, No nl external ears & nose, No nl lips & teeth, No nl nasal mucosa & septum, No other, No tympanic membranes Neck: bruits, nuchal rigidity, No jvd, No masses, No non-tender, No other, No supple, No thyromegaly Respiratory: congested cough, diminished breath sounds, No clear to auscultation, No crackles/rales, No intercostal retraction, No labored breathing, No normal air movement, No other, No respirations, No tactile fremitus, No wheezing Cardiovascular: bruits, jugular venous distention (JVD), systolic murmur, No S3, No S4, No diastolic murmur, No edema, No gallop, No irregular rhythm, No murmurs/extra sounds, No nl pulses, No other, No regular rate and rhythm, No rub Gastrointestinal: ascites, bowel sounds, distended, soft (very obese with reducible umbilical hernia.) Musculoskeletal: joint tenderness, muscle tone, muscle weakness, other (Severe ACjoint and biceps tendon area tenderness with mild hotness of the right shoulder.) Extremities: calf tenderness, edema (much less.) Neurological: lethargic, numbness Results Result Diagram: 06/09/1662706/09/16627 Results 24 hrs Laboratory Tests Test 06/09/16 08:30 06/09/16 11:26 06/09/16 17:39 Bedside Glucose 168 248 H 128 Medications Medications Current Medications Amlodipine Besylate (Norvasc) 5 mg DAILY PRN PO ELEVATED BLOOD PRESSURE; Start 06/07/16 at 01:00 Aspirin (Halfprin) 81 mg DAILY PO Last administered on 06/09/16 08:36; Admin Dose 81 MG; Start 06/07/16 at 09:00 Diphenhydramine HCl (Benadryl) 25 mg QHS PRN PO ITCHING; Start 06/07/16 at 01: 00 EZETIMIBE (Zetia) 10 mg DAILY PO Last administered on 06/09/16 08:36; Admin Dose 10 MG; Start 06/07/16 at 09:00 Lorazepam (Ativan) 1 mg BID PRN PO ANXIETY Last administered on 06/09/16 01:39 ; Admin Dose 1 MG; Start 06/07/16 at 01:00 Losartan Potassium (Cozaar) 50 mg BID PO Last administered on 06/09/16 22:39; Admin Dose 50 MG; Start 06/07/16 at 01:00 Montelukast Sodium (Singulair) 10 mg HS PO Last administered on 06/09/16 22:31 ; Admin Dose 10 MG; Start 06/07/16 at 21:00 Potassium Chloride (Klor-Con 20) 20 meq DAILY PO Last administered on 08:36; Admin Dose 20 MEQ; Start 06/07/16 at 09:00 Salmeterol Xinafoate/ Fluticasone (Advair 250/50 Diskus) 1 inh BID INH Last administered on 06/09/16 22:30; Admin Dose 1 INH; Start 06/07/16 at 01:00 Tiotropium [place] (Spiriva) 1 inh DAILY INH Last administered on 06/09/16 08: 33; Admin Dose 1 INH; Start 06/07/16 at 09:00 Enoxaparin Sodium (Lovenox) 75 mg Q24H SC Last administered on 06/10/16 01:42 ; Admin Dose 75 MG; Start 06/07/16 at 01:00 Escitalopram Oxalate (Lexapro) 10 mg DAILY PO Last administered on 06/09/16 08 :37; Admin Dose 10 MG; Start 06/07/16 at 09:00 Flecainide Acetate (Tambocor) 100 mg BID PO Last administered on 06/09/16 22: 31; Admin Dose 100 MG; Start 06/07/16 at 09:00 Linagliptin (Tradjenta) 5 mg DAILY PO Last administered on 06/09/16 08:37; Admin Dose 5 MG; Start 06/07/16 at 09:00 Fluticasone Propionate 2 spray 2 spray DAILY NASAL Last administered on 08:34; Admin Dose 2 SPRAY; Start 06/07/16 at 09:00 Magnesium Sulfate 50 ml @ 25 mls/hr DAILY IVPB Last administered on 06/09/16 09:54; Admin Dose 25 MLS/HR; Start 06/07/16 at 11:00; Stop 06/10/16 at 10:59 Ferric Sodium Gluconate Complex/ Sodium Chloride (Ferrlecit/NS) 110 ml @ 110 mls/hr Q24H IVPB Last administered on 06/09/16 12:00; Admin Dose 110 MLS/HR; Start 06/07/16 at 13:00; Stop 06/11/16 at 13:59 Furosemide (Lasix) 20 mg BID PO Last administered on 06/09/16 22:32; Admin Dose 20 MG; Start 06/09/16 at 21:00 Acetaminophen/ Hydrocodone Bitart ([place] (7.5-325)) 1 tab Q6H PRN PO PAIN LEVEL 4-7 Last administered on 06/10/16 04:05; Admin Dose 1 TAB; Start at 05:00 Miscellaneous Information 1 ea NOTE XX ; Start 06/08/16 at 07:00 Glucose (Glutose) 15 gm Q15M PRN PO DECREASED GLUCOSE; Start 06/08/16 at 07:00 Glucose (Glutose) 22.5 gm Q15M PRN PO DECREASED GLUCOSE; Start 06/08/16 at 07: 00 Dextrose (D50w Syringe) 25 ml Q15M PRN IV DECREASED GLUCOSE; Start 06/08/16 at 07:00 Dextrose (D50w Syringe) 50 ml Q15M PRN IV DECREASED GLUCOSE; Start 06/08/16 at 07:00 Glucagon (Glucagen) 1 mg Q15M PRN IM DECREASED GLUCOSE; Start 06/08/16 at 07:00 Glucose (Glutose) 15 gm Q15M PRN BUCCAL DECREASED GLUCOSE; Start 06/08/16 at 07 :00 STONE HERNANDEZ MD Jun 10, 2016 07:31
[2016-06-10] MEDS: INSULIN ASPART [NOVOLOG] 3 ML PEN SC SCH ×3 (08:26→17:55)
[2016-06-10] MEDS: SALMETEROL/FLUTICASONE 250/50 INHA INH SCH ×2 (08:50→21:35)
[2016-06-10] MEDS: FLUTICASONE 0.05% 16 GM NAS SPRAY NASAL SCH (08:50)
[2016-06-10] MEDS: TIOTROPIUM 18 MCG CAPSULE INHA DEV INH SCH (08:51)
[2016-06-10] MEDS: ASPIRIN (EC) 81 MG TAB PO SCH (08:53)
[2016-06-10] MEDS: POTASSIUM CHLORIDE (SR) 20 MEQ TAB PO SCH (08:53)
[2016-06-10] MEDS: ESCITALOPRAM 10 MG TAB PO SCH (08:53)
[2016-06-10] MEDS: metFORMIN 500 MG TAB PO SCH ×2 (08:53→18:23)
[2016-06-10] MEDS: EZETIMIBE 10 MG TAB PO SCH (08:54)
[2016-06-10] MEDS: LOSARTAN 50 MG TAB PO SCH ×2 (08:54→21:35)
[2016-06-10] MEDS: FUROSEMIDE 20 MG TAB PO SCH ×2 (08:54→21:34)
[2016-06-10] MEDS: LINAGLIPTIN 5 MG TABLET PO SCH (08:54)
[2016-06-10] MEDS: MAGNESIUM SULFATE 2 GM/50 ML 50 ML IVPB SCH (08:55)
[2016-06-10 08:56] LABS: AADO2 Arterial 24.7 mmHg (7.0-24.0); Allen Test ACCEPTAB; Arterial Base Excess 3.7 mmol/L (-3.0-3); Arterial COHb 0.6 % (0.0-3.0); Arterial Fraction of Oxyhgb 90.7 % (93.0-99.0); Arterial MetHb 0.2 % (0.0-1.5); Arterial Total Hemglobin 13.5 g/dl (12.0-18.0); MODE ROOM AIR
[2016-06-10] MEDS: FLECAINIDE 100 MG TAB PO SCH ×2 (08:58→21:35)
[2016-06-10] MEDS: SOD FERRIC GLUC COMPLX 125 MG in SOD CHLORIDE 0.9% 100 ML IVPB SCH (13:20)
[2016-06-10] MEDS: MONTELUKAST 10 MG TAB PO SCH (21:32)
[2016-06-11] VITALS (12 sets, daily range): BP systolic 117–167; BP diastolic 50–72; PULSE 62–70; RESP 18–22
[2016-06-11] MEDS: ENOXAPARIN 100 MG/ML SYG SC SCH (00:46)
[2016-06-11] MEDS: HYDROCODONE/APAP (7.5/325) TAB PO PRN ×3 (04:42→18:38)
[2016-06-11 06:40] LABS: ADD SCAN DIFF NO
[2016-06-11 06:44] LABS: BASOPHILS % 0.2 % (0.0-2.0); EOSINOPHILS # 0.1 10^3/ul (0.0-0.5); HEMATOCRIT 36.3 % (37.0-47.0); HEMOGLOBIN 10.9 g/dl (12.0-16.0); LYMPHOCYTES # 2.7 10^3/ul (0.8-2.9); LYMPHOCYTES % 21.4 % (15.0-51.0); MEAN CORPUSCULAR HEMOGLOBIN 28.9 pg (29.0-33.0); MEAN CORPUSCULAR VOLUME 96.3 fl (82.0-101.0); MEAN PLATELET VOLUME 11.9 fl (7.4-10.4); MONOCYTES % 7.5 % (0.0-11.0); NEUTROPHIL # 8.8 10^3/ul (1.6-7.5); NEUTROPHILS % 69.4 % (39.0-77.0); PLATELET COUNT 246 10^3/UL (140-415); RED BLOOD COUNT 3.77 10^6/ul (4.20-5.40); RED CELL DISTRIBUTION WIDTH 13.6 % (11.5-14.5); WHITE BLOOD COUNT 12.7 10^3/ul (4.8-10.8)
[2016-06-11 07:20] LABS: CREATININE 1.03 mg/dl (0.44-1.00); POTASSIUM 4.3 mmol/L (3.5-5.1)
[2016-06-11] MEDS: metFORMIN 500 MG TAB PO SCH ×2 (07:49→18:05)
[2016-06-11] MEDS: INSULIN ASPART [NOVOLOG] 3 ML PEN SC SCH ×3 (07:59→18:07)
--- NOTE | 2016-06-11 08:43 | CONS ---
Date/Time of Note Date/Time of Note DATE: 06/11/16 TIME: 08:41 Assessment/Plan Assessment/Plan Chief Complaint/Hosp Course Acute on chronic diastolic heart failure: EF preserved. S/p aggressive diuresis , now euvolemic. Chest pain: has overall body pain. Trops negative, EKG unrevealing. No symptoms currently. For now treat medically. H/o unknown cardiac arrhythmia: On flecainide but with h/o heart failure, may need to reconsider. 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 No arrhythmias on tele DM HTN Bedbound state -continue lasix 20mg PO BID (can consider decreasing to daily for 1-2 days as BUN rising) -ASA, zetia -ok for flecainide for now -amlodipine, cozaar Problems: Consultation Date/Type/Reason Admit Date/Time Jun 07, 2016 at 00:34 Initial Consult Date 06/09/16 Type of Consultation: Cardiology Referring Provider: STONE HERNANDEZ MD 24 HR Interval Summary Free Text/Dictation No o/n events. No arrhythmias on tele. Feels tired but no SOB. Exam/Review of Systems Vital Signs Vitals Vital Signs Date Time Temp Pulse Resp B/P Pulse Ox O2 Delivery O2 Flow Rate FiO2 06/11/16 08:37 62 06/11/16 07:38 97.9 19 117/55 99 06/11/16 07:33 Nasal Cannula 3.0 06/09/16 17:53 28 Intake and Output 06/10/16 06/10/16 06/11/16 15:00 23:00 07:00 Intake Total 920 ml 110 ml Balance 920 ml 110 ml Exam Constitutional: alert, oriented Head: atraumatic, normocephalic Neck: No jvd Respiratory: clear to auscultation Cardiovascular: regular rate and rhythm, No edema Gastrointestinal: non-tender, soft Neurological: nl mental status, nl speech Results Result Diagram: 06/11/16 0630 06/11/16 0630 Results 24 hrs Laboratory Tests Test 06/10/16 11:21 06/10/16 17:50 06/11/16 06:30 06/11/16 07:47 Bedside Glucose 125 122 91 White Blood Count 12.7 H Red Blood Count 3.77 L Hemoglobin 10.9 L Hematocrit 36.3 L Mean Corpuscular Volume 96.3 Mean Corpuscular Hemoglobin 28.9 L Mean Corpuscular Hemoglobin Concent 30.0 L Red Cell Distribution Width 13.6 Platelet Count 246 Mean Platelet Volume 11.9 H Neutrophils % 69.4 Lymphocytes % 21.4 Monocytes % 7.5 Eosinophils % 1.0 Basophils % 0.2 Nucleated Red Blood Cells % 0.0 Neutrophils # 8.8 H Lymphocytes # 2.7 Monocytes # 1.0 H Eosinophils # 0.1 Basophils # 0.0 Nucleated Red Blood Cells # 0.0 Sodium Level 135 Potassium Level 4.3 Chloride Level 100 Carbon Dioxide Level 29 Anion Gap 10 Blood Urea Nitrogen 52 H Creatinine 1.03 H Glucose Level 99 Calcium Level 9.0 Medications Medications Current Medications Amlodipine Besylate (Norvasc) 5 mg DAILY PRN PO ELEVATED BLOOD PRESSURE; Start 06/07/16 at 01:00 Aspirin (Halfprin) 81 mg DAILY PO Last administered on 06/10/16 08:53; Admin Dose 81 MG; Start 06/07/16 at 09:00 Diphenhydramine HCl (Benadryl) 25 mg QHS PRN PO ITCHING; Start 06/07/16 at 01: 00 EZETIMIBE (Zetia) 10 mg DAILY PO Last administered on 06/10/16 08:54; Admin Dose 10 MG; Start 06/07/16 at 09:00 Lorazepam (Ativan) 1 mg BID PRN PO ANXIETY Last administered on 06/09/16 01:39 ; Admin Dose 1 MG; Start 06/07/16 at 01:00 Losartan Potassium (Cozaar) 50 mg BID PO Last administered on 06/10/16 21:35; Admin Dose 50 MG; Start 06/07/16 at 01:00 Montelukast Sodium (Singulair) 10 mg HS PO Last administered on 06/10/16 21:32 ; Admin Dose 10 MG; Start 06/07/16 at 21:00 Potassium Chloride (Klor-Con 20) 20 meq DAILY PO Last administered on 08:53; Admin Dose 20 MEQ; Start 06/07/16 at 09:00 Salmeterol Xinafoate/ Fluticasone (Advair 250/50 Diskus) 1 inh BID INH Last administered on 06/10/16 21:35; Admin Dose 1 INH; Start 06/07/16 at 01:00 Tiotropium [place] (Spiriva) 1 inh DAILY INH Last administered on 06/10/16 08: 51; Admin Dose 1 INH; Start 06/07/16 at 09:00 Enoxaparin Sodium (Lovenox) 75 mg Q24H SC Last administered on 06/11/16 00:46 ; Admin Dose 75 MG; Start 06/07/16 at 01:00 Escitalopram Oxalate (Lexapro) 10 mg DAILY PO Last administered on 06/10/16 08 :53; Admin Dose 10 MG; Start 06/07/16 at 09:00 Flecainide Acetate (Tambocor) 100 mg BID PO Last administered on 06/10/16 21: 35; Admin Dose 100 MG; Start 06/07/16 at 09:00 Linagliptin (Tradjenta) 5 mg DAILY PO Last administered on 06/10/16 08:54; Admin Dose 5 MG; Start 06/07/16 at 09:00 Fluticasone Propionate 2 spray 2 spray DAILY NASAL Last administered on 08:50; Admin Dose 2 SPRAY; Start 06/07/16 at 09:00 Ferric Sodium Gluconate Complex/ Sodium Chloride (Ferrlecit/NS) 110 ml @ 110 mls/hr Q24H IVPB Last administered on 06/10/16 13:20; Admin Dose 110 MLS/HR; Start 06/07/16 at 13:00; Stop 06/11/16 at 13:59 Furosemide (Lasix) 20 mg BID PO Last administered on 06/10/16 21:34; Admin Dose 20 MG; Start 06/09/16 at 21:00 Acetaminophen/ Hydrocodone Bitart ([place] (7.5-325)) 1 tab Q6H PRN PO PAIN LEVEL 4-7 Last administered on 06/11/16 04:42; Admin Dose 1 TAB; Start at 05:00 Miscellaneous Information 1 ea NOTE XX ; Start 06/08/16 at 07:00 Glucose (Glutose) 15 gm Q15M PRN PO DECREASED GLUCOSE; Start 06/08/16 at 07:00 Glucose (Glutose) 22.5 gm Q15M PRN PO DECREASED GLUCOSE; Start 06/08/16 at 07: 00 Dextrose (D50w Syringe) 25 ml Q15M PRN IV DECREASED GLUCOSE; Start 06/08/16 at 07:00 Dextrose (D50w Syringe) 50 ml Q15M PRN IV DECREASED GLUCOSE; Start 06/08/16 at 07:00 Glucagon (Glucagen) 1 mg Q15M PRN IM DECREASED GLUCOSE; Start 06/08/16 at 07:00 Glucose (Glutose) 15 gm Q15M PRN BUCCAL DECREASED GLUCOSE; Start 06/08/16 at 07 :00 KEVIN CHOU Jun 11, 2016 08:43
[2016-06-11] MEDS: SALMETEROL/FLUTICASONE 250/50 INHA INH SCH ×2 (08:52→20:53)
[2016-06-11] MEDS: FLUTICASONE 0.05% 16 GM NAS SPRAY NASAL SCH (08:52)
[2016-06-11] MEDS: TIOTROPIUM 18 MCG CAPSULE INHA DEV INH SCH (08:53)
[2016-06-11] MEDS: LINAGLIPTIN 5 MG TABLET PO SCH (08:53)
[2016-06-11] MEDS: ESCITALOPRAM 10 MG TAB PO SCH (08:53)
[2016-06-11] MEDS: EZETIMIBE 10 MG TAB PO SCH (08:54)
[2016-06-11] MEDS: FUROSEMIDE 20 MG TAB PO SCH ×2 (08:54→20:53)
[2016-06-11] MEDS: LOSARTAN 50 MG TAB PO SCH ×2 (08:54→20:52)
[2016-06-11] MEDS: FLECAINIDE 100 MG TAB PO SCH ×2 (08:54→20:52)
[2016-06-11] MEDS: ASPIRIN (EC) 81 MG TAB PO SCH (08:54)
[2016-06-11] MEDS: POTASSIUM CHLORIDE (SR) 20 MEQ TAB PO SCH (08:54)
--- NOTE | 2016-06-11 09:15 | PN ---
Date/Time of Note Date/Time of Note DATE: 06/11/16 TIME: 09:11 Assessment/Plan VTE Prophylaxis VTE Prophylaxis Intervention: ambulation, anti-embolic stocking VTE Contraindication Reason: peripheral vascular disease Lines/Catheters IV Catheter Type (from Nrsg): Saline Lock Urinary Cath still in place: No Reason Cath still needed: other (indicate) (incontinence:fecal amd urine.) Assessment/Plan Assessment/Plan 1. Congestive heart failure exacerbation. 2. Morbid obesity; Obesity hypopnea syndrome. 3. Bradycardia 4. Hypertension, now normotensive. 5. History of having palpitations-now bradycardic; lowest rate 45- now 63bpm. 6. History of having bronchial asthma, now stable. 7. Wound of the postsurgical scar, right-sided abdomen, healed. 8. Status post cholecystectomy. 9. Postmenstrual syndrome. 10. Anxiety. 11. Claustrophobia. 12. Dyslipidemia. 13. Diabetes type 2. 14. History of having carbon dioxide retention. 15. Anemia of chronic disease with recent loss. 16. History of chronic kidney disease, improved. 17. History of having low iron and low magnesium levels. 18. Pain syndrome. 19. Major depression. 20. Altered level of consciousness. 21. Diverticulitis. 22. Left-sided chest pain. 23.carbon dioxide narcosis (Hx of) 24.Trophic changes of both legs with change of a color. 25.Pilling of the skin of nailbeds of both hands with deformities and trace of blood and swelling.26. 26.11 years bedridden 27.Decubitus of t he left gluteal area with mild redness of the calcaneal skin 28.Severe deconditioning 29.Daytime sleepiness 30.Severe krupa of right shoulder more than left shoulder and both heels. Improved pain of knees, hips joints 31.Calcaneal pain. 32.Umbilical reducible hernia 4-5cm in diameter.Postsurgical. 333.Chronic norco,percocet, and other control substances. Cont'd Hospitalization Reason: pain,c02 retention. Cont'd Hospitalization Reason: lethargic. Subjective 24 Hr Interval Summary Free Text/Dictation I am sleeppy. I am forgetful. I can't concentrate. What is going on with me? Constitutional: diaphoresis, disoriented, improved, poor po, requiring O2, No chills, No febrile, No no complaints, No other, No requiring IVF Eyes: redness, visual change, No discharge, No no complaints, No other, No pain ENT: No bleeding, No congestion, No discharge, No dysphagia, No no complaints, No other, No pain, No sore throat Respiratory: shortness of breath, No cough, No no complaints, No other, No pain, No pleuritic pain, No sputum, No wheezing Cardiovascular: lightheadedness, orthopenea, palpitations, paroxysmal nocturnal dyspnea, No chest pain, No edema, No no complaints, No other Gastrointestinal: diarrhea, flatus, passing stool, No blood, No constipation, No decreased appetite, No nausea, No no complaints , No other, No pain, No vomiting Neurologic: confusion, dizziness Psychological: anxiety, confusion, depression Exam/Review of Systems Vital Signs Vitals Vital Signs Date Time Temp Pulse Resp B/P Pulse Ox O2 Delivery O2 Flow Rate FiO2 06/11/16 08:37 62 06/11/16 07:38 97.9 19 117/55 99 06/11/16 07:33 Nasal Cannula 3.0 06/09/16 17:53 28 Intake and Output 06/10/16 06/10/16 06/11/16 15:00 23:00 07:00 Intake Total 920 ml 110 ml Balance 920 ml 110 ml Exam Constitutional: frail, oriented, other (lethargic.), well developed, No alert, No distress, No non-verbal, No obese Psych: anxiety, confusion, depression, No nl mood/affect, No no complaints, No other, No suicidal Head: atraumatic, No hematomas, No lacerations, No normocephalic, No other Eyes: EOMI, PERRL, nl lids, No fundi, disc, No icteric, No nl conjunctiva, No nl sclera, No other ENMT: tympanic membranes, No intubated, No mucosa pink and moist, No nl external ears & nose, No nl lips & teeth, No nl nasal mucosa & septum, No other Neck: bruits, nuchal rigidity, No jvd, No masses, No non-tender, No other, No supple, No thyromegaly Respiratory: congested cough, diminished breath sounds, No clear to auscultation, No crackles/rales, No intercostal retraction, No labored breathing, No normal air movement, No other, No respirations, No tactile fremitus, No wheezing Gastrointestinal: bowel sounds, distended, soft, No ascites, No firm, No hepatomegaly, No mass, No nl liver, spleen, No non- tender, No other, No rebound or guarding, No splenomegaly, No surgical scars, No tender Genitourinary - Female: No CMT, No CVA tenderness, No nl adnexae, No nl external genitalia, No other, No uterus Musculoskeletal: joint tenderness, muscle tone, muscle weakness, range of motion, No nl extremities to inspection, No nl gait and stance, No other, No spine non-tender, No swelling 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, confused, lethargic, numbness Skin: diaphoresis Results Result Diagram: 06/11/1630 06/11/16 0630 Results 24 hrs Laboratory Tests Test 06/10/16 11:21 06/10/16 17:50 06/11/16 06:30 06/11/16 07:47 Bedside Glucose 125 122 91 White Blood Count 12.7 H Red Blood Count 3.77 L Hemoglobin 10.9 L Hematocrit 36.3 L Mean Corpuscular Volume 96.3 Mean Corpuscular Hemoglobin 28.9 L Mean Corpuscular Hemoglobin Concent 30.0 L Red Cell Distribution Width 13.6 Platelet Count 246 Mean Platelet Volume 11.9 H Neutrophils % 69.4 Lymphocytes % 21.4 Monocytes % 7.5 Eosinophils % 1.0 Basophils % 0.2 Nucleated Red Blood Cells % 0.0 Neutrophils # 8.8 H Lymphocytes # 2.7 Monocytes # 1.0 H Eosinophils # 0.1 Basophils # 0.0 Nucleated Red Blood Cells # 0.0 Sodium Level 135 Potassium Level 4.3 Chloride Level 100 Carbon Dioxide Level 29 Anion Gap 10 Blood Urea Nitrogen 52 H Creatinine 1.03 H Glucose Level 99 Calcium Level 9.0 Medications Medications Current Medications Amlodipine Besylate (Norvasc) 5 mg DAILY PRN PO ELEVATED BLOOD PRESSURE; Start 06/07/16 at 01:00 Aspirin (Halfprin) 81 mg DAILY PO Last administered on 06/11/16t 08:54; Admin Dose 81 MG; Start 06/07/16 at 09:00 Diphenhydramine HCl (Benadryl) 25 mg QHS PRN PO ITCHING; Start 06/07/16 at 01: 00 EZETIMIBE (Zetia) 10 mg DAILY PO Last administered on 06/11/16 08:54; Admin Dose 10 MG; Start 06/07/16 at 09:00 Lorazepam (Ativan) 1 mg BID PRN PO ANXIETY Last administered on 06/09/16 01:39 ; Admin Dose 1 MG; Start 06/07/16 at 01:00 Losartan Potassium (Cozaar) 50 mg BID PO Last administered on 06/11/16 08:54; Admin Dose 50 MG; Start 06/07/16 at 01:00 Montelukast Sodium (Singulair) 10 mg HS PO Last administered on 06/10/16 21:32 ; Admin Dose 10 MG; Start 06/07/16 at 21:00 Potassium Chloride (Klor-Con 20) 20 meq DAILY PO Last administered on 08:54; Admin Dose 20 MEQ; Start 06/07/16 at 09:00 Salmeterol Xinafoate/ Fluticasone (Advair 250/50 Diskus) 1 inh BID INH Last administered on 06/11/16 08:52; Admin Dose 1 INH; Start 06/07/16 at 01:00 Tiotropium [place] (Spiriva) 1 inh DAILY INH Last administered on 06/11/16 08: 53; Admin Dose 1 INH; Start 06/07/16 at 09:00 Enoxaparin Sodium (Lovenox) 75 mg Q24H SC Last administered on 06/11/16 00:46 ; Admin Dose 75 MG; Start 06/07/16 at 01:00 Escitalopram Oxalate (Lexapro) 10 mg DAILY PO Last administered on 06/11/16 08 :53; Admin Dose 10 MG; Start 06/07/16 at 09:00 Flecainide Acetate (Tambocor) 100 mg BID PO Last administered on 06/11/16 08: 54; Admin Dose 100 MG; Start 06/07/16 at 09:00 Linagliptin (Tradjenta) 5 mg DAILY PO Last administered on 06/11/16 08:53; Admin Dose 5 MG; Start 06/07/16 at 09:00 Fluticasone Propionate 2 spray 2 spray DAILY NASAL Last administered on 08:52; Admin Dose 2 SPRAY; Start 06/07/16 at 09:00 Ferric Sodium Gluconate Complex/ Sodium Chloride (Ferrlecit/NS) 110 ml @ 110 mls/hr Q24H IVPB Last administered on 06/10/16 13:20; Admin Dose 110 MLS/HR; Start 06/07/16 at 13:00; Stop 06/11/16 at 13:59 Furosemide (Lasix) 20 mg BID PO Last administered on 06/11/16 08:54; Admin Dose 20 MG; Start 06/09/16 at 21:00 Acetaminophen/ Hydrocodone Bitart ([place] (7.5-325)) 1 tab Q6H PRN PO PAIN LEVEL 4-7 Last administered on 06/11/16 04:42; Admin Dose 1 TAB; Start at 05:00 Miscellaneous Information 1 ea NOTE XX ; Start 06/08/16 at 07:00 Glucose (Glutose) 15 gm Q15M PRN PO DECREASED GLUCOSE; Start 06/08/16 at 07:00 Glucose (Glutose) 22.5 gm Q15M PRN PO DECREASED GLUCOSE; Start 06/08/16 at 07: 00 Dextrose (D50w Syringe) 25 ml Q15M PRN IV DECREASED GLUCOSE; Start 06/08/16 at 07:00 Dextrose (D50w Syringe) 50 ml Q15M PRN IV DECREASED GLUCOSE; Start 06/08/16 at 07:00 Glucagon (Glucagen) 1 mg Q15M PRN IM DECREASED GLUCOSE; Start 06/08/16 at 07:00 Glucose (Glutose) 15 gm Q15M PRN BUCCAL DECREASED GLUCOSE; Start 06/08/16 at 07 :00 STONE HERNANDEZ MD Jun 11, 2016 09:15
--- NOTE | 2016-06-11 11:26 | RADRPT ---
PROCEDURE: XR right shoulder. CLINICAL INDICATION: Shoulder pain. TECHNIQUE: AP Internal and external rotation views of the right shoulder were performed. COMPARISON: None. FINDINGS: There is no evidence of fracture or dislocation. The bones are normal in mineralization without kya ical disruption. There is narrowing of the subacromial space suspicious for chronic rotator cuff te ar. The humeral head otherwise articulates normally with the glenoid. The acromioclavicular and gle nohumeral joints are unremarkable. The scapula and visualized thoracic structures are unremarkable. No soft tissue abnormality. IMPRESSION: 1. Subacromial space narrowing suggestive of chronic rotator cuff tear. Otherwise unremarkable rig ht shoulder. RPTAT:AAJJ Physician Christina Date Time Electronically viewed and signed by Physician Christina on 06/11/2016 11:26 RAE/
--- NOTE | 2016-06-11 11:28 | RADRPT ---
PROCEDURE: XR Chest. CLINICAL INDICATION: Chest pain TECHNIQUE: Single AP portable chest COMPARISON: 10/24/2015 Chest x-ray FINDINGS: The cardiac silhouette is enlarged is stable in size. Mild vascular prominence decreased compared t o prior examination, however, this is in part due to improved inspiratory effort. Atherosclerotic c alcification of the aorta. The lungs are clear without pleural effusion or focal consolidation. No pneumothorax. The osseous structures and soft tissues are unremarkable. IMPRESSION: 1. Cardiomegaly and mild vascular congestion. No focal consolidation . RPTAT:AAJJ Kaitlin Ferrer Physician Date Time Electronically viewed and signed by Physician Christina on 06/11/2016 11:28 RAE/
--- NOTE | 2016-06-11 11:37 | RADRPT ---
PROCEDURE: Left shoulder 3 views CLINICAL INDICATION: Shoulder pain TECHNIQUE: AP internal and external rotation and transscapular Y views of the left shoulder were o btained COMPARISON: None available FINDINGS: Diffuse osteopenia is identified. The osseous structures appear intact. No destructive bony lesion s are observed. Moderate narrowing of the acromioclavicular joint is identified. Mild to moderate narrowing of the glenohumeral joint is seen. Elevation of the humeral head with severe narrowing of the subacromial space is identified. Soft tissues are unremarkable. IMPRESSION: Osteopenia. Moderate degenerative changes of the acromioclavicular joint. Mild to moderate degenerative changes of the glenohumeral joint. Elevation of the humeral head with severe narrowing of the subacromial space. Finding may reflect s upraspinatus impingement in the appropriate clinical scenario. If further characterization is needed CT or MRI could be helpful. If there is high clinical suspicion for traumatic injury, further evaluation with CT should be consi dered. RPTAT: AA .Freddy Milton MD, Date Time Electronically viewed and signed by .Freddy Milton MD, on 06/11/2016 11:36 .P/
--- NOTE | 2016-06-11 13:30 | RADRPT ---
PROCEDURE: CT Brain without. CLINICAL INDICATION: Lethargic. Altered mental status. TECHNIQUE: A CT of the brain was performed on multidetector high-resolution CT scanner utilizing a xial sections from the skull base through the vertex without contrast. The scan was reviewed in sof t tissue brain and high frequency resolution bone algorithm windows. Images were reviewed on a high -resolution PACS workstation. One or more the following does reduction techniques were utilized: Aut omated exposure control, adjustment of the mA/ or kV according to patient's size, or use of iterativ e reconstruction technique. The exam CTDI = 45.0 mGy and the DLP = 720.23 mGy-cm. COMPARISON: Brain CT 04/17/2015. FINDINGS: The ventricles and sulci are mildly prominent indicative of volume loss. There is no intracranial he morrhage, mass effect or midline shift. No abnormal intra-axial or extra-axial fluid collections ar e seen. The rod/white matter differentiation is preserved. There are mild to moderate scattered foci of hypoattenuation in the white matter, which are nonspeci fic in etiology but likely reflect chronic small vessel ischemic changes. There are mild intracrani al vascular calcifications consistent with atherosclerosis. The visualized paranasal sinuses are ess entially clear. IMPRESSION: 1. No acute intracranial hemorrhage, transcortical infarction or mass effect. 2. Mild intracranial atherosclerosis and mild to moderate chronic small vessel ischemic changes. 3. Mild generalized cerebral volume loss. RPTAT: HFN .Raad Batres MD, MD Date Time Electronically viewed and signed by .Raad Batres MD, MD on 06/11/2016 13:29 .N/
[2016-06-11] MEDS: SOD FERRIC GLUC COMPLX 125 MG in SOD CHLORIDE 0.9% 100 ML IVPB SCH (14:19)
--- NOTE | 2016-06-11 15:26 | RADRPT ---
PROCEDURE: CT Cervical Spine without contrast. CLINICAL INDICATION: pain TECHNIQUE: A CT of the cervical spine was performed on a multidetector CT scanner utilizing thin s ection axial images from the skull base through the thoracic inlet. Sagittal and coronal reformatte d images were made. The CTDIvol is 22mGy and the DLP is 373mGycm. One or more of the following dose reduction techniques were used: Automated exposure control, Adjustment of the mA and/or kV accordin g to patient size, and/or use of iterative reconstruction technique. COMPARISON: No prior studies are available for comparison. FINDINGS: Reversal of the cervical lordosis. Focal tubular lucency with corticated margins through the left aspect of C2 is felt to represent a prominent nutrient vessel No convincing acute cervical vertebral fracture or subluxation. Multilevel degenerative changes are seen. C2-3: The disk space is preserved in height. Facet arthropathy results in mild to right foraminal n arrowing. No significant bony spinal canal stenosis. C3-4: Severe disk height loss. A broad disk osteophyte complex narrows the ventral thecal sac and c auses mild bony spinal canal stenosis. Uncovertebral osteophytes and facet arthropathy cause severe left and moderate right foraminal narrowing. C4-5: Severe disk height loss. Uncovertebral osteophytes cause severe bilateral foraminal stenosis. A broad disk osteophyte complex results in moderate to severe bony spinal canal narrowing. C5-6: Severe disk height loss. Uncovertebral osteophytes cause severe bilateral foraminal stenosis. Uncovertebral osteophytes cause moderate-severe bony spinal canal narrowing. C6-7: Severe disk height loss. Uncovertebral osteophytes cause severe left and moderate right fora cat narrowing. A left central disk/osteophyte complex results in moderate bony spinal canal narro wing. C7-T1: Uncovertebral osteophytes and facet arthropathy cause moderate left foraminal narrowing. No significant bony spinal canal narrowing. IMPRESSION: Reversal of the cervical lordosis. No convincing acute cervical vertebral fracture or subluxation. Severe degenerative changes are detailed in the findings. RPTAT: AA .Pb Colunga MD, Date Time Electronically viewed and signed by .Pb Colunga MD, on 06/11/2016 15:25 .T/
--- NOTE | 2016-06-11 15:32 | RADRPT ---
PROCEDURE: CT thoracic spine without contrast CLINICAL INDICATION: Back pain. TECHNIQUE: CT scan of the thoracic spine was performed on a multidetector [facility] No IV contrast was administered. DOSE: CTDI = 38mGy and the DLP = 1469mGy-cm. COMPARISON: None available FINDINGS: Mild thoracic dextroscoliosis. Multilevel degenerative changes with disk space narrowing and osteophytes identified. No acute thoracic vertebral compression fracture. No high-grade thoracic bony spinal canal narrowin g. A prominent left central osteophyte complex at L1-2 results in mild-moderate bony spinal canal narro wing. Partially imaged enlarged pulmonary artery trunk and aortic atherosclerosis. IMPRESSION: Multilevel thoracic discogenic disease. Mild thoracic dextroscoliosis. No acute thoracic vertebral compression fracture. A prominent left central osteophyte complex at L1-2 results in mild-moderate bony spinal canal narro wing. Partially imaged enlarged pulmonary artery trunk and aortic atherosclerosis. RPTAT: AA .Pb Colunga MD, MD Date Time Electronically viewed and signed by .Pb Colunga MD, on 06/11/2016 15:31 .T/
[2016-06-11] MEDS: MONTELUKAST 10 MG TAB PO SCH (20:51)
[2016-06-12] VITALS (9 sets, daily range): BP systolic 117–132; BP diastolic 47–61; PULSE 59–72; RESP 18–22
[2016-06-12] MEDS: ENOXAPARIN 100 MG/ML SYG SC SCH (01:30)
[2016-06-12] MEDS: HYDROCODONE/APAP (7.5/325) TAB PO PRN ×2 (01:38→14:36)
[2016-06-12] MEDS: INSULIN ASPART [NOVOLOG] 3 ML PEN SC SCH ×3 (07:28→17:18)
--- NOTE | 2016-06-12 07:32 | DS ---
Date/Time of Note Date/Time of Note DATE: 06/12/16 TIME: 07:28 Discharge Summary Admission/Discharge Info Admit Date/Time Jun 07, 2016 at 00:34 Discharge Date/Time Final Diagnosis 1. Congestive heart failure exacerbation. 2. Morbid obesity; Obesity hypopnea syndrome. 3. Bradycardia 4. Hypertension, now normotensive. 5. History of having palpitations-now bradycardic; lowest rate 45- now 63bpm. 6. History of having bronchial asthma, now stable. 7. Wound of the postsurgical scar, right-sided abdomen, healed. 8. Status post cholecystectomy. 9. Postmenstrual syndrome. 10. Anxiety. 11. Claustrophobia. 12. Dyslipidemia. 13. Diabetes type 2. 14. History of having carbon dioxide retention. 15. Anemia of chronic disease with recent loss. 16. History of chronic kidney disease, improved. 17. History of having low iron and low magnesium levels. 18. Pain syndrome. 19. Major depression. 20. Altered level of consciousness. 21. Diverticulitis. 22. Left-sided chest pain. 23.carbon dioxide narcosis (Hx of) 24.Trophic changes of both legs with change of a color. 25.Pilling of the skin of nailbeds of both hands with deformities and trace of blood and swelling.26. 26.11 years bedridden 27.Decubitus of t he left gluteal area with mild redness of the calcaneal skin 28.Severe deconditioning 29.Daytime sleepiness 30.Severe krupa of right shoulder more than left shoulder and both heels. Improved pain of knees, hips joints 31.Calcaneal pain. 32.Umbilical reducible hernia 4-5cm in diameter.Postsurgical. 333.Chronic norco,percocet, and other control substances. Patient Condition: Guarded Hx of Present Illness CHF and pulmonary edema better controlled. Persistent pain in all joints with partial control. Deconditioned of advanced degree. Wound of the right gluteal betzy is healing slowly. Refused BIPAP .Will continue nebulizers.Needs outpatient close f/u. Hospital Course Acute on chronic diastolic heart failure: EF preserved. S/p aggressive diuresis , now euvolemic. Chest pain: has overall body pain. Trops negative, EKG unrevealing. No symptoms currently. For now treat medically. H/o unknown cardiac arrhythmia: On flecainide but with h/o heart failure, may need to reconsider. Defer to outpt journal clerk/EP. No arrhythmias on tele DM HTN Bedbound state -continue lasix 20mg PO BID (can consider decreasing to daily for 1-2 days as BUN rising) -ASA, zetia -ok for flecainide for now -amlodipine, cozaar Home Meds Reported Medications Diphenhydramine Hcl* (Benadryl*) 25 Mg Cap, 25 MG PO QHS Y for ITCHING, CAP 10/21/15 Losartan Potassium* (Losartan Potassium*) 50 Mg Tablet, 50 MG PO BID, TAB 08/08/15 Lorazepam* (Lorazepam*) 1 Mg Tablet, 1 MG PO BID Y for ANXIETY, #30 TAB 04/15/15 Escitalopram Oxalate* (Lexapro*) 5 Mg Tablet, PO DAILY, #30 TAB 04/15/15 Amlodipine Besylate* (Norvasc*) 5 Mg Tablet, 5 MG PO DAILY Y for ELEVATED BLOOD PRESSURE, TAB 01/04/15 Potassium Chloride* (K-Dur*) 20 Meq Tab.prt.sr, 20 MEQ PO DAILY, TAB.SA 07/21/14 Hydrocodone Bit-Acetaminophen* ([place]*) 5-325 Mg Tab, 1 TAB PO Q8 Y for PAIN, TAB 07/11/14 Tiotropium [place]* (Spiriva*) 18 Mcg Cap.w.dev, 1 INH IH DAILY, EA 07/11/14 Ezetimibe* (Zetia*) 10 Mg Tablet, 10 MG PO DAILY, TAB 07/11/14 Metformin* (Glucophage*) 1,000 Mg Tablet, 1000 MG PO BID, TAB 07/11/14 Sitagliptin* (Januvia*) 100 Mg Tablet, 100 MG PO DAILY, TAB 07/11/14 Montelukast Sodium* (Singulair*) 10 Mg Tablet, 10 MG PO HS, TAB 07/11/14 Mometasone Furoate* (Nasonex*) 50 Mcg/[place] - 17 Gm [place].pump, 1 SPRAY NASAL DAILY, SPRAY 07/11/14 Salmeterol Xinaf/Fluticasone* (Advair*) 250-50 Diskus Inhaler, 1 INH INH BID, INH 07/11/14 Flecainide Acetate* (Flecainide Acetate*) 100 Mg Tablet, 100 MG PO BID, TAB 07/11/14 Aspirin (Low Dose Aspirin) 81 Mg Tablet.dr, 81 MG PO DAILY 07/11/14 Pending Labs Laboratory Tests Test 06/11/16 07:47 06/11/16 11:20 06/11/16 18:04 06/11/16 20:55 Bedside Glucose 91mg/dL (70-220) 89mg/dL (70-220) 116mg/dL (70-220) 199mg/dL (70-220) Test 06/12/16 02:13 Bedside Glucose 90mg/dL (70-220) STONE HERNANDEZ MD Jun 12, 2016 07:32
[2016-06-12] MEDS: metFORMIN 500 MG TAB PO SCH ×2 (08:02→17:26)
[2016-06-12] MEDS: SALMETEROL/FLUTICASONE 250/50 INHA INH SCH (08:03)
[2016-06-12] MEDS: FLUTICASONE 0.05% 16 GM NAS SPRAY NASAL SCH (08:03)
[2016-06-12] MEDS: TIOTROPIUM 18 MCG CAPSULE INHA DEV INH SCH (08:03)
[2016-06-12] MEDS: LINAGLIPTIN 5 MG TABLET PO SCH (08:04)
[2016-06-12] MEDS: EZETIMIBE 10 MG TAB PO SCH (08:04)
[2016-06-12] MEDS: ESCITALOPRAM 10 MG TAB PO SCH (08:04)
[2016-06-12] MEDS: LOSARTAN 50 MG TAB PO SCH (08:04)
[2016-06-12] MEDS: POTASSIUM CHLORIDE (SR) 20 MEQ TAB PO SCH (08:05)
[2016-06-12] MEDS: FLECAINIDE 100 MG TAB PO SCH (08:05)
[2016-06-12] MEDS: FUROSEMIDE 20 MG TAB PO SCH (08:05)
[2016-06-12] MEDS: ASPIRIN (EC) 81 MG TAB PO SCH (08:05)
== END 2016-06-12 19:20 | disposition home health service (06) | DRG 292 ==
LOC: E/R 20:40 → TEL 06-07 00:34
PROVIDERS: ADMIT Family Medicine; ATTEND Family Medicine
PROC: 4A033R1 Measurement of Arterial Saturation, Peripheral, Percutaneous Approach (ICD-10-PCS; principal; 2016-06-07)
DX: I50.33 Acute on chronic diastolic (congestive) heart failure (principal); J44.1 Chronic obstructive pulmonary disease with (acute) exacerbation; L89.329 Pressure ulcer of left buttock, unspecified stage; N18.4 Chronic kidney disease, stage 4 (severe); E11.22 Type 2 diabetes mellitus with diabetic chronic kidney disease; K57.92 Diverticulitis of intestine, part unspecified, without perforation or abscess without bleeding; D63.8 Anemia in other chronic diseases classified elsewhere; R00.1 Bradycardia, unspecified; I13.0 Hypertensive heart and chronic kidney disease with heart failure and stage 1 through stage 4 chronic kidney disease, or unspecified chronic kidney disease; Z68.43 Body mass index [BMI] 50.0-59.9, adult; L60.1 Onycholysis; I11.0 Hypertensive heart disease with heart failure; K42.9 Umbilical hernia without obstruction or gangrene; N95.1 Menopausal and female climacteric states; E66.01 Morbid (severe) obesity due to excess calories; F41.9 Anxiety disorder, unspecified; F40.240 Claustrophobia; E78.5 Hyperlipidemia, unspecified; R06.89 Other abnormalities of breathing; R07.89 Other chest pain; M19.079 Primary osteoarthritis, unspecified ankle and foot; M17.0 Bilateral primary osteoarthritis of knee; M79.672 Pain in left foot; M16.11 Unilateral primary osteoarthritis, right hip; G47.33 Obstructive sleep apnea (adult) (pediatric); Z79.891 Long term (current) use of opiate analgesic; Z87.09 Personal history of other diseases of the respiratory system
CPT/HCPCS: 36415; 36600; 70450; 71010; 72125; 72128; 72170; 73030; 73560; 73600; 73620; 80048; 80053; 82550; 82553; 82803; 82962; 83036; 83540; 83735; 83880; 84443; 84484; 85025; 85378; 85610; 85730; 93005; 94640; 94664; 96374; 96375; 97162; J0702; J1200; J1650; J1815; J1940; J2060; J2916; J2930; J3475

== ENCOUNTER 2016-09-20 20:00 | Inpatient (IN) | payer MEDICARE, OTHER ==
[~2016-09-20] VITALS: Ht 162.6 cm; Wt 142.7 kg
[~2016-09-20 20:00] MED LIST changes: -FURO20TA3 PO
[2016-09-20] MEDS ORDERED: METHYLPREDNISOLONE 125 MG INJ IV STA (20:15)
[2016-09-20] MEDS ORDERED: FUROSEMIDE 40 MG INJ IV STA (20:15)
[2016-09-20] MEDS ORDERED: ALBUTEROL 0.5% (NEB) 2.5 MG/0.5 ML AMP INH STA (20:15)
[2016-09-20] MEDS ORDERED: ASPIRIN 325 MG TAB PO STA (20:15)
[2016-09-20] MEDS ORDERED: IPRATROPIUM (NEB) 0.5 MG/2.5 ML AMP INH STA (20:15)
[2016-09-20] MEDS ORDERED: morphine 4 MG/ML VIAL IV STA (20:27)
[2016-09-20] MEDS ORDERED: ONDANSETRON 4 MG INJ IV STA (20:27)
[2016-09-20] MEDS ORDERED: NITROGLYCERIN (SL) 0.4 MG TAB SL PRN (20:30)
[2016-09-20 20:34] LABS: BASOPHILS % 0.3 % (0.0-2.0); EOSINOPHILS # 0.3 10^3/ul (0.0-0.5); EOSINOPHILS % 2.3 % (0.0-7.0); HEMOGLOBIN 11.3 g/dl (12.0-16.0); LYMPHOCYTES # 2.3 10^3/ul (0.8-2.9); LYMPHOCYTES % 19.1 % (15.0-51.0); MEAN CORPUSCULAR HGB CONC 30.5 g/dl (32.0-37.0); MEAN CORPUSCULAR VOLUME 98.1 fl (82.0-101.0); MEAN PLATELET VOLUME 11.7 fl (7.4-10.4); MONOCYTE # 0.7 10^3/ul (0.3-0.9); NEUTROPHIL # 8.5 10^3/ul (1.6-7.5); PLATELET COUNT 258 10^3/UL (140-415); RED BLOOD COUNT 3.77 10^6/ul (4.20-5.40); RED CELL DISTRIBUTION WIDTH 13.5 % (11.5-14.5); WHITE BLOOD COUNT 11.8 10^3/ul (4.8-10.8)
[2016-09-20] MEDS ORDERED: ESCI10TA PO (20:46)
[2016-09-20] MEDS ORDERED: FLEC150T PO (20:47)
[2016-09-20] MEDS ORDERED: HYDR-902 PO (20:47)
[2016-09-20] MEDS ORDERED: GABA300C16 PO (20:48)
[2016-09-20] MEDS ORDERED: FURO40TA4 PO (20:48)
[2016-09-20] MEDS ORDERED: POTA8CAP PO (20:48)
[2016-09-20] MEDS ORDERED: CLON-379 PO (20:49)
[2016-09-20 20:50] LABS: INR 0.93; PROTIME 12.5 Sec (12.2-14.2)
[2016-09-20] MEDS ORDERED: LINA5TAB PO (20:50)
[2016-09-20] MEDS ORDERED: METO10TA96 PO (20:50)
[2016-09-20 20:51] LABS: PARTIAL THROMBOPLASTIN TIME 31.3 Sec (25.0-35.0)
[2016-09-20 20:56] LABS: ALANINE AMINOTRANSFERASE 22 IU/L (13-69); ALBUMIN 3.9 g/dl (3.3-4.9); ALBUMIN/GLOBULIN RATIO 1.05; ALKALINE PHOSPHATASE 116 IU/L (42-121); ANION GAP 20 (8-16); ASPARTATE AMINO TRANSFERASE 15 IU/L (15-46); BLOOD UREA NITROGEN 14 mg/dl (7-20); CALCIUM 9.2 mg/dl (8.4-10.2); CARBON DIOXIDE 26 mmol/L (21-31); CHLORIDE 101 mmol/L (97-110); CREATININE 0.78 mg/dl (0.44-1.00); GLUCOSE 110 mg/dl (70-220); POTASSIUM 4.8 mmol/L (3.5-5.1); SODIUM 142 mmol/L (135-144); TOTAL PROTEIN 7.6 g/dl (6.1-8.1)
[2016-09-20 20:57] LABS: CREATINE KINASE < 20 IU/L (23-200)
--- NOTE | 2016-09-20 20:59 | RADRPT ---
PROCEDURE: XR Chest. CLINICAL INDICATION: Chest Pain. TECHNIQUE: Single frontal view of the chest was obtained COMPARISON: 10/24/2015 FINDINGS: Atherosclerotic changes are seen in the aortic arch. The heart remains enlarged. There is moderate pulmonary vascular congestion. There is patchy left lower lobe atelectasis with a moderate left pleural effusion. This could be so mewhat distorted by patient rotation. The bones and soft tissue show no acute change. IMPRESSION: 1. Study somewhat limited by the patient's large body habitus, patient positioning and the portable nature of the film. 2. Cardiomegaly with moderate pulmonary vascular congestion. 3. Patchy left lower lobe atelectasis with a moderate left pleural effusion. This could be somewha t distorted by patient rotation. RPTAT:AAJJ Physician Jonathan Date Time Electronically viewed and signed by Federico [place] Physician on 09/20/2016 20:58 /
[2016-09-20 21:08] LABS: AADO2 Arterial 117.8 mmHg (7.0-24.0); Allen Test ACCEPTAB; Arterial Base Excess -1.6 mmol/L (-3.0-3); Arterial COHb 0.7 % (0.0-3.0); Arterial MetHb 0.2 % (0.0-1.5); Arterial Total Hemglobin 12.4 g/dl (12.0-18.0); MODE AEROSOL MASK ON TX
[2016-09-20 21:09] LABS: B-TYPE NATRIURETIC PEPTIDE 472 PG/ML (0-450); CK-MB 0.66 ng/ml (0.0-2.4)
[2016-09-20 21:10] LABS: TROPONIN-I < 0.012 ng/ml (0.00-0.12)
[2016-09-20 21:35] LABS: ADD UMIC NO; UR ASCORBIC ACID NEGATIVE (NEGATIVE); UR BILIRUBIN (Dip) NEGATIVE (NEGATIVE); UR BLOOD (Dip) NEGATIVE (NEGATIVE); UR CLARITY CLEAR (CLEAR); UR COLOR COLORLESS (YELLOW); UR GLUCOSE (Dip) NEGATIVE (NEGATIVE); UR KETONES (Dip) NEGATIVE (NEGATIVE); UR LEUKOCYTE ESTERASE (Dip) NEGATIVE Leu/ul (NEGATIVE); UR NITRITE (Dip) NEGATIVE (NEGATIVE); UR SPECIFIC GRAVITY (Dip) 1.005 (1.003-1.030); UR TOTAL PROTEIN (Dip) NEGATIVE (NEGATIVE); UR UROBILINOGEN (Dip) NEGATIVE (NEGATIVE)
--- NOTE | 2016-09-20 22:57 | ERA ---
ER Documentation Chief Complaint Date/Time DATE: 09/20/16 TIME: 22:52 Chief Complaint BIBRA c/o CP with SB x 3 days. (+) BLE. HPI This is a 76-year-old female with a known history of asthma non-insulin- dependent diabetes mellitus on metformin and congestive heart failure. The patient presents to the emergency department complaining of intermittent chest pain for the past 3 days. The patient indicates that the chest pain is a pressure-like sensation that radiates to the left arm. She stated that 2 hours prior to arrival the chest pain significantly worsened. When the chest pain has occurred it would normally last for roughly 20 minutes and then would spontaneously resolved. The patient took 2 nitroglycerin just prior to arrival and prior to the medication her chest pain was 8 out of 10. After the nitroglycerin it has improved to 7 out of 10 in intensity. She also took aspirin just prior to arrival. The patient also complains of dyspnea and shortness of breath at rest. The patient is nonambulatory due to significant bilateral pedal edema. She states however that the shortness of breath is similar nature to previous exacerbations of congestive heart failure. She did not utilize a nebulizer treatment prior to arrival. She has had no fevers or shaking or chills. She denies any back pain. Her grandson indicates that he believes she has sleep apnea but she is not currently on CPAP. She has not had a productive or nonproductive cough. She had no frequency urgency or dysuria. She is currently on 40 Mill grams of Lasix which she is supposed to take in the morning but states she has not taken this for the past several days as it causes her to urinate and given that she is unable to ambulate she states that this provides a significant amount discomfort. ROS All systems reviewed and are negative except as per history of present illness. Medications Home Meds Reported Medications Linagliptin (TRADJENTA) 5 Mg Tablet, 5 MG PO DAILY, TAB 09/20/16 Metoclopramide Hcl* (Metoclopramide Hcl*) 10 Mg Tablet, 10 MG PO TID Y for NAUSEA AND OR VOMITING, TAB 09/20/16 Clonidine Hcl* (Clonidine Hcl*) 0.1 Mg Tab, 0.1 MG PO DAILY Y for HTN, TAB 09/20/16 Furosemide* (Furosemide*) 40 Mg Tablet, 40 MG PO DAILY, TAB 09/20/16 Gabapentin* (Gabapentin*) 300 Mg Capsule, 300 MG PO BID, #60 CAP 09/20/16 Potassium Chloride* (Potassium Chloride*) 8 Meq Capsule.er, 8 MEQ PO DAILY, CAP 09/20/16 Hydrocodone/Acetaminophen (Rhodelia 10-325 Tablet) 1 Each Tablet, 1 EACH PO Q8H, TAB 09/20/16 Flecainide Acetate* (Flecainide Acetate*) 150 Mg Tablet, 150 MG PO BID, TAB 09/20/16 Escitalopram Oxalate* (Lexapro*) 10 Mg Tablet, 10 MG PO DAILY, #30 TAB 09/20/16 Diphenhydramine Hcl* (Benadryl*) 25 Mg Cap, 25 MG PO BID Y for ITCHING, CAP 10/21/15 Losartan Potassium* (Losartan Potassium*) 50 Mg Tablet, 100 MG PO BID, TAB 08/08/[address] [place]* (Spiriva*) 18 Mcg Cap.w.dev, 1 INH IH DAILY, EA 07/11/14 Metformin* (Glucophage*) 1,000 Mg Tablet, 1000 MG PO BID, TAB 07/11/14 Salmeterol Xinaf/Fluticasone* (Advair*) 250-50 Diskus Inhaler, 1 INH INH BID, INH 07/11/14 Aspirin (Low Dose Aspirin) 81 Mg Tablet.dr, 81 MG PO DAILY 07/11/14 Discontinued Reported Medications Lorazepam* (Lorazepam*) 1 Mg Tablet, 1 MG PO BID Y for ANXIETY, #30 TAB 04/15/15 Escitalopram Oxalate* (Lexapro*) 5 Mg Tablet, PO DAILY, #30 TAB 04/15/15 Amlodipine Besylate* (Norvasc*) 5 Mg Tablet, 5 MG PO DAILY Y for ELEVATED BLOOD PRESSURE, TAB 01/04/15 Potassium Chloride* (K-Dur*) 20 Meq Tab.prt.sr, 20 MEQ PO DAILY, TAB.SA 07/21/14 Hydrocodone Bit-Acetaminophen* (Rhodelia*) 5-325 Mg Tab, 1 TAB PO Q8 Y for PAIN, TAB 07/11/14 Ezetimibe* (Zetia*) 10 Mg Tablet, 10 MG PO DAILY, TAB 07/11/14 Sitagliptin* (Januvia*) 100 Mg Tablet, 100 MG PO DAILY, TAB 07/11/14 Montelukast Sodium* (Singulair*) 10 Mg Tablet, 10 MG PO HS, TAB 07/11/14 Mometasone Furoate* (Nasonex*) 50 Mcg/[place] - 17 Gm [place].pump, 1 SPRAY NASAL DAILY, SPRAY 07/11/14 Flecainide Acetate* (Flecainide Acetate*) 100 Mg Tablet, 100 MG PO BID, TAB 07/11/14 Allergies Allergies: Coded Allergies: No Known Allergy (Verified , 09/20/16) PMhx/Soc Medical and Surgical Hx: pt denies Surgical Hx History of Surgery: No Anesthesia Reaction: No Hx Neurological Disorder: No Hx Respiratory Disorders: No Hx Cardiac Disorders: Yes (CHF, HTN) Hx Psychiatric Problems: No Hx Miscellaneous Medical Probl: Yes (DM) Hx Alcohol Use: No Hx Substance Use: No Hx Tobacco Use: No Smoking Status: Never smoker Physical Exam Vitals Vital Signs Date Time Temp Pulse Resp B/P Pulse Ox O2 Delivery O2 Flow Rate FiO2 09/20/16 21:12 98.6 75 22 106/55 100 5.0 09/20/16 20:36 67 22 100 Nasal Cannula 5.0 09/20/16 20:29 Nasal Cannula 2 09/20/16 20:26 98.6 79 22 132/53 100 09/20/16 20:23 98.2 76 22 132/85 Physical Exam Constitutional:Well-developed. Well-nourished. Patient in mild respiratory distress HEENT:Normocephalic. Atraumatic.Pupils were equal round reactive to light. Moist mucous membranes.No tonsillar exudates. Neck: No nuchal rigidity. No lymphadenopathy. No posterior cervical spine tenderness or step-offs. Respiratory: Not using accessory muscles of respiration. Bilateral rhonchi and wheezing heard on end auscultation bilaterally. Speaking in full complete sentences Cardiovascular: Regular rate regular rhythm.No murmurs. No rubs were appreciated.S1, S2 normal. Distal pulses are palpable 2+ bilaterally. GI: Abdomen was obese so exam is limited due to body habitus. Nontender. Non Distended. No pulsatile abdominal masses or bruits. No rebound. No guarding. Bowel sounds were present and normal. Muscle skeletal: Full range of motion of both the upper extremities and due to significant edema the bilateral lower extremities patient is unable to lift the bilateral lower extremities against gravity.Normal muscle tone.No assymetrical calf tenderness or swelling. Skin: No petechia, no purpura. No lesions on the palms or the soles of the feet. No maculopapular rash. 2+ pitting edema the bilateral lower extremities per NEURO: Patient was alert, awake, orientated x3.No facial droop. Gait not observed as patient is unable to ambulate. No slurred speech Result Diagram: 09/20/16202909/20/162029 Results 24 hrs Laboratory Tests Test 09/20/16 20:15 09/20/16 20:30 09/20/16 21:20 Blood Gas Specimen Source Blood arterial Arterial Blood Date Drawn 09/20/2016 8:54:30 PM Arterial Blood pH (Temp corrected) 7.276 Arterial Blood pCO2 (Temp correct) 57.2mmhg Arterial Blood pO2 (Temp corrected) 138.0mmHG Arterial Blood HCO3 26.0mmol/L Arterial Blood Base Excess -1.6mmol/L Arterial Blood Oxygen Saturation 97.9mmHG Erasmo Test ACCEPTAB Arterial Blood Gas Puncture Site Right Radial Arterial Blood Carboxyhemoglobin 0.7% Arterial Blood Methemoglobin 0.2% Blood Gas A-a O2 Differential 117.8mmHg Oxyhemoglobin Percent 97.0% Total Hemoglobin 12.4g/dl Blood Gas Temperature 37.0C Blood Gas Modality AEROSOL MASK ON [place] FiO2 45.0% Blood Gas Critical Value Read Back Iron GUIDO MD Blood Gas Notified Whom MG Blood Gas Notified Time 09/20/2016 9:07:42 PM White Blood Count 11.810^3/ul Red Blood Count 3.7710^6/ul Hemoglobin 11.3g/dl Hematocrit 37.0% Mean Corpuscular Volume 98.1fl Mean Corpuscular Hemoglobin 30.0pg Mean Corpuscular Hemoglobin Concent 30.5g/dl Red Cell Distribution Width 13.5% Platelet Count 47648^3/UL Mean Platelet Volume 11.7fl Neutrophils % 72.0% Lymphocytes % 19.1% Monocytes % 6.0% Eosinophils % 2.3% Basophils % 0.3% Nucleated Red Blood Cells % 0.0/100WBC Neutrophils # 8.510^3/ul Lymphocytes # 2.310^3/ul Monocytes # 0.710^3/ul Eosinophils # 0.310^3/ul Basophils # 0.010^3/ul Nucleated Red Blood Cells # 0.010^3/ul Prothrombin Time 12.5Sec Prothrombin Time Ratio 1.0 INR International Normalized Ratio 0.93 Activated Partial Thromboplast Time 31.3Sec Sodium Level 142mmol/L Potassium Level 4.8mmol/L Chloride Level 101mmol/L Carbon Dioxide Level 26mmol/L Anion Gap 20 Blood Urea Nitrogen 14mg/dl Creatinine 0.78mg/dl Glucose Level 110mg/dl Calcium Level 9.2mg/dl Total Bilirubin 0.0mg/dl Direct Bilirubin 0.00mg/dl Indirect Bilirubin 0.0mg/dl Aspartate Amino Transf (AST/SGOT) 15IU/L Alanine Aminotransferase (ALT/SGPT) 22IU/L Alkaline Phosphatase 116IU/L Creatine Kinase < 20IU/L Creatine Kinase Index Creatinine Kinase MB (Mass) 0.66ng/ml Troponin I < 0.012ng/ml B-Type Natriuretic Peptide 472PG/ML Total Protein 7.6g/dl Albumin 3.9g/dl Globulin 3.70g/dl Albumin/Globulin Ratio 1.05 Urine Color COLORLESS Urine Clarity CLEAR Urine pH 6.0 Urine Specific [place] 1.005 Urine Ketones NEGATIVEmg/dL Urine Nitrite NEGATIVEmg/dL Urine Bilirubin NEGATIVEmg/dL Urine Urobilinogen NEGATIVEmg/dL Urine Leukocyte Esterase NEGATIVELeu/ul Urine Hemoglobin NEGATIVEmg/dL Urine Glucose NEGATIVEmg/dL Urine Total Protein NEGATIVEmg/dl Current Medications Medications (Trade) Dose Ordered Sig/Margoth Route PRN Reason Start Time Stop Time Status Last Admin Dose Admin Aspirin (Aspirin) 325 mg ONCE STAT PO 09/20/16 20:15 09/20/16 20:20 DC 09/20/16 20:33 Furosemide (Lasix) 40 mg ONCE STAT IV 09/20/16 20:15 09/20/16 20:20 DC 09/20/16 20:34 Albuterol (Proventil 0.5% (Neb)) 10 mg ONCE STAT INH 09/20/16 20:15 09/20/16 20:20 DC 09/20/16 20:[address] [place] (Atrovent 0.02% (Neb)) 1 mg ONCE STAT INH 09/20/16 20:15 09/20/16 20:20 DC 09/20/16 20:36 Methylprednisolone Sodium Succinate (Solu-Medrol) 125 mg ONCE STAT IV 09/20/16 20:15 09/20/16 20:20 DC 09/20/16 20:34 Nitroglycerin (Nitroglycerin (Sl Tab) 0.4 Mg) 1 tab Q5M UP TO 3 DOSES PRN SL CHEST PAIN 09/20/16 20:30 Morphine Sulfate (morphine) 4 mg ONCE STAT IV 09/20/16 20:27 09/20/16 20:30 DC 09/20/16 20:34 Ondansetron HCl (Zofran Inj) 4 mg ONCE STAT IV 09/20/16 20:27 09/20/16 20:30 DC 09/20/16 20:34 Ondansetron HCl (Zofran Inj) 4 mg ER BRIDGE PRN IV NAUSEA AND/OR VOMITING 09/20/16 23:00 09/21/16 22:59 Acetaminophen (Tylenol Tab) 650 mg ER BRIDGE PRN PO MILD PAIN/FEVER 09/20/16 23:00 09/21/16 22:59 Procedures/MDM The patient presented to the emergency department with chest pain. My clinical evaluation and workup was to distinguish minor causes of chest pain from acute life threatening conditions such as myocardial infarction, pulmonary embolism, aortic dissection, esophageal rupture, cardiac tamponade. The patient was placed on a property assessment monitor and continuous pulse oximetry. IV access established by nursing staff. The patient received 325 mg of aspirin and sublingual nitroglycerin. She was still complaining of chest discomfort. She received intravenous morphine and Zofran. 12 Lead EKG tracing ordered and reviewed by myself showed: Normal sinus rhythm of 72 bpm and no arrhythmia. VA interval prolonged at 232 ms consistent with a first-degree AV block. QRS duration widened at 152 ms with a right bundle branch block No ST segment elevation No ST segment depression. No changes consistent with acute ischemia. The patient had respiratory acidosis with a pH of 7.2 and a PCO2 of 56. The patient however was alert awake orientated 3 and speaking in full complete sentences. At this time the patient did not require intubation. She was adamantly refusing a BiPAP she states she has severe claustrophobia. She received nebulizer treatments of albuterol and Atrovent. A Mascorro catheter had been placed and the patient received IV Lasix 40 mg. I obtained blood cultures and urine cultures but at this time the patient did not appear to have an infectious process such as pneumonia. I spoke with the patient's primary care physician Dr. Dalal who will admit the patient for serial 12-lead EKG tracings and cardiac set of enzymes and to monitor her severe CHF. I did not feel the patient was stable for transfer as the patient could decompensate in route due to her underlying respiratory acidosis and chest pain. Departure Diagnosis: Primary Impression: Chest pain Qualified Code: R07.9 - Chest pain, unspecified type Additional Impression: Congestive heart failure Qualified Code: I50.9 - Acute on chronic congestive heart failure, unspecified congestive heart failure type Condition: Serious ROBBI GUIDO Sep 20, 2016 22:57
[2016-09-20] MEDS ORDERED: ONDANSETRON 4 MG INJ IV PRN (23:00)
[2016-09-21] VITALS (12 sets, daily range): BP systolic 116–155; BP diastolic 58–82; PULSE 67–76; RESP 16–22; TEMP 98.6; Ht 162.6 cm; Wt 142.7 kg
[2016-09-21] MEDS: ACETAMINOPHEN 325 MG TAB PO PRN ×2 (01:24→20:33)
[2016-09-21] MEDS ORDERED: METOCLOPRAMIDE 10 MG TAB PO PRN (01:30)
[2016-09-21] MEDS ORDERED: DIPHENHYDRAMINE 25 MG CAP PO PRN (01:30)
[2016-09-21] MEDS ORDERED: HYDROCODONE/APAP (10/325) TAB PO SCH (01:30)
[2016-09-21] MEDS ORDERED: ALBUTEROL/IPRATROPIUM (NEB) 3 ML AMP HHN PRN (02:00)
[2016-09-21] MEDS ORDERED: IPRATROPIUM (NEB) 0.5 MG/2.5 ML AMP HHN PRN (02:00)
[2016-09-21] MEDS: ACCU-CHEK XX SCH (02:00)
[2016-09-21] MEDS: HYDROCODONE/APAP (10/325) TAB PO PRN ×2 (02:29→17:38)
[2016-09-21] MEDS: AZITHROMYCIN 500MG/NS (PMX) 250 ML IVPB SCH (04:47)
[2016-09-21] MEDS: FUROSEMIDE 40 MG INJ IV SCH ×2 (05:10→17:38)
[2016-09-21] MEDS: IPRATROPIUM (NEB) 0.5 MG/2.5 ML AMP HHN SCH ×2 (08:00→15:49)
[2016-09-21] MEDS: SALMETEROL/FLUTICASONE 250/50 INHA INH SCH ×2 (08:28→20:27)
[2016-09-21] MEDS: TIOTROPIUM 18 MCG CAPSULE INHA DEV INH SCH (08:28)
[2016-09-21] MEDS: INSULIN ASPART [NOVOLOG] 3 ML PEN SC SCH ×4 (08:32→20:27)
[2016-09-21] MEDS: ALBUTEROL/IPRATROPIUM (NEB) 3 ML AMP HHN SCH ×2 (08:41→15:49)
[2016-09-21] MEDS: ESCITALOPRAM 10 MG TAB PO SCH (09:14)
[2016-09-21] MEDS: ASPIRIN (EC) 81 MG TAB PO SCH (09:14)
[2016-09-21] MEDS: GABAPENTIN 300 MG CAP PO SCH ×2 (09:14→20:27)
[2016-09-21] MEDS: LOSARTAN 50 MG TAB PO SCH ×2 (09:14→20:27)
[2016-09-21] MEDS: metFORMIN 500 MG TAB PO SCH ×2 (09:14→17:38)
[2016-09-21] MEDS: POTASSIUM CHLORIDE (SR) 8 MEQ CAP PO SCH (09:14)
[2016-09-21] MEDS: LINAGLIPTIN 5 MG TABLET PO SCH (09:14)
[2016-09-21] MEDS: FLECAINIDE 50 MG TAB PO SCH ×2 (09:15→22:59)
--- NOTE | 2016-09-21 09:29 | HP ---
Date/Time of Note Date/Time of Note DATE: 09/21/16 TIME: 09:14 Assessment/Plan VTE Prophylaxis VTE Prophylaxis Intervention: ambulation, anti-embolic stocking VTE Contraindication Reason: peripheral vascular disease Lines/Catheters IV Catheter Type (from Nrsg): [place] line still needed: No Urinary Cath still in place: Yes Reason Cath still needed: urinary retention Assessment/Plan Assessment/Plan 1. Congestive heart failure exacerbation with pulmonary edema.. 2. Morbid obesity; Obesity hypopnea syndrome,hypercarbia with Pc02 57 3. Hallucinations, confusion, fear on and off 4. Hypertension, now normotensive. 5. History of having palpitations-now bradycardic; lowest rate 45- now 63bpm. 6. History of having bronchial asthma, now stable. 7. Wound of the postsurgical scar, right-sided abdomen, healed. 8. Status post cholecystectomy. 9. Postmenstrual syndrome. 10. Anxiety. 11. Claustrophobia. 12. Dyslipidemia. 13. Diabetes type 2. 14. History of having carbon dioxide retention. 15. Anemia of chronic disease with recent loss. 16. History of chronic kidney disease, improved. 17. History of having low iron and low magnesium levels. 18. Pain syndrome. 19. Major depression. 20. Altered level of consciousness. 21. Diverticulitis. 22. Left-sided chest pain. 23.carbon dioxide narcosis (Hx of) 24.Trophic changes of both legs with change of a color. 25.Pilling of the skin of nailbeds of both hands with deformities and trace of blood and swelling.26. 26.11 years bedridden 27.Decubitus of t he left gluteal area with mild redness of the calcaneal skin 28.Severe deconditioning 29.Daytime sleepiness 30.Severe krupa of knees, hips ans ankle joints 31.Calcaneal pain. 32.Umbilical reducible hernia 4-5cm in diameter.Postsurgical. 33.Chronic norco,percocet, and other controlled substance user. 34.Bradycardia HPI/ROS Admit Date/Time Admit Date/Time Sep 20, 2016 at 23:01 Hx of Present Illness Severe sob with confusion, sleepiness, pain and hallucinations more than a month with confusion and wheezing last 3 days with inability to breath, to get up, with fear oa and being in apin. ROS Subjective hx not possible: pt critical Constitutional: chills, diaphoresis, disoriented, fatigue, improved, nausea, poor po, weight change, No febrile, No no complaints, No other Eyes: discharge, pain, No no complaints, No other, No redness, No visual change ENT: congestion, dysphagia, other (hearing impairment.), sore throat Respiratory: cough, pain, pleuritic pain, shortness of breath, sputum, wheezing , No no complaints, No other Cardiovascular: chest pain, edema, lightheadedness, orthopenea, palpitations, paroxysmal nocturnal dyspnea, No no complaints, No other Gastrointestinal: constipation, decreased appetite, flatus, nausea, pain, passing stool, vomiting, No blood, No diarrhea, No no complaints, No other Genitourinary: discharge, dysuria, flank pain, No bleeding, No hematuria, No no complaints, No other Musculoskeletal: back pain, bone/joint pain, neck pain, restricted range of motion, swelling, No no complaints, No other Skin: bruising, erythema, laceration, pruritis, rash, skin lesions, No no complaints, No other Neurologic: confusion, dizziness, headache, No focal-weakness, No no complaints, No other, No seizure, No syncope Endocrine: dry skin, polydypsia, polyuria Lymphatic: No adenopathy, No lymphadema, No no complaints, No other, No tender nodes Psychological: anxiety, confusion, depression, other (hallucinations.Hears voices but there are no people around acording to family. Getting scared of threats but again no people around.), suicidal (thinking about) Immunologic: pruritis, urticaria, No immunodeficiency, No no complaints, No other, No rhinitis PMH/Family/Social Past Medical History Medical History: angina, colitis, congestive heart failure, coronary artery disease, deep vein thrombosis, diabetes, diverticulitis, GERD, GI bleed, high cholesterol, hypertension, irritable bowel syndrome, pancreatitis, peptic ulcer disease, urinary tract infection Past Surgical History Past Surgical Hx: cholecystectomy, endoscopy, other Family History Significant Family History: heart disease, COPD, hypertension, lung disease Social History Alcohol Use: none Smoking Status: Current some day smoker Drug Use: none Exam/Review of Systems Vital Signs Vitals Vital Signs Date Time Temp Pulse Resp B/P Pulse Ox O2 Delivery O2 Flow Rate FiO2 09/21/16 08:51 74 22 98 Nasal Cannula 2.0 09/21/16 07:42 98.9 135/63 Intake and Output 09/20/16 09/20/16 09/21/16 15:00 23:00 07:00 Intake Total 120 ml Output Total 900 ml Balance -780 ml Exam Constitutional: alert, distress, frail, other (unable to move due to of severe obesity.), well developed, No non-verbal, No oriented Psych: anxiety, confusion, depression, No nl mood/affect, No no complaints, No other, No suicidal Head: atraumatic, hematomas (left knee and tibial areas.), No lacerations, No normocephalic, No other Eyes: EOMI, PERRL, nl lids, No fundi, disc, No icteric, No nl conjunctiva, No nl sclera, No other ENMT: mucosa pink and moist (pale), nl external ears & nose, nl nasal mucosa & septum, tympanic membranes (sclerotic with almos) Neck: bruits, jvd, non-tender, nuchal rigidity, thyromegaly, No masses, No other, No supple Respiratory: congested cough, diminished breath sounds, wheezing, No clear to auscultation, No crackles/rales, No intercostal retraction, No labored breathing, No normal air movement, No other, No respirations, No tactile fremitus Cardiovascular: bruits, edema (2+), jugular venous distention (JVD), murmurs/ extra sounds, nl pulses, regular rate and rhythm (muffled.), systolic murmur, No S3, No S4, No diastolic murmur, No gallop, No irregular rhythm, No other, No rub Gastrointestinal: bowel sounds, distended, nl liver, spleen, non-tender, other (very obese with pannus, mild redness and just hanging between thigs. 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 (right ear deafness and decreased hearing on left ear.), confused, lethargic, nl mental status (no.), nl speech (no.) , numbness, reflexes (unable to elicit.) Skin: diaphoresis, ecchymosis, laceration, No nl turgor, No other, No puncture, No rash or lesions Labs Result Diagram: 09/20/16 2030 09/20/16 2030 Medications Medications Current Medications Aspirin (Halfprin) 81 mg DAILY PO ; Start 09/21/16 at 09:00 Clonidine (Catapres) 0.1 mg DAILY PRN PO HTN; Start 09/21/16 at 01:30 Diphenhydramine HCl (Benadryl) 25 mg BID PRN PO ITCHING; Start 09/21/16 at 01:30 Escitalopram Oxalate (Lexapro) 10 mg DAILY PO ; Start 09/21/16 at 09:00 Flecainide Acetate (Tambocor) 150 mg BID PO ; Start 09/21/16 at 09:00 Gabapentin (Neurontin) 300 mg BID PO ; Start 09/21/16 at 09:00 Linagliptin (Tradjenta) 5 mg DAILY PO ; Start 09/21/16 at 09:00 Losartan Potassium (Cozaar) 100 mg BID PO ; Start 09/21/16 at 09:00 Metoclopramide HCl (Reglan) 10 mg TID PRN PO NAUSEA AND/OR VOMITING; Start 09/21 at 01:30 Potassium Chloride (Micro-K) 8 meq DAILY PO ; Start 09/21/16 at 09:00 Salmeterol Xinafoate/ Fluticasone (Advair 250/50 Diskus) 1 inh BID INH Last administered on 09/21/16 08:28; Admin Dose 1 INH; Start 09/21/16 at 09:00 Tiotropium [place] 1 inh 1 inh DAILY INH Last administered on 09/21/16 08:28; Admin Dose 1 INH; Start 09/21/16 at 09:00 Azithromycin (Zithromax 500mg/ NS (Pmx)) 250 ml @ 250 mls/hr Q24H IVPB Last administered on 09/21/16 04:47; Admin Dose 250 MLS/HR; Start 09/21/16 at 03:00 Diagnostic Test (Pha) (Accu-Chek) 1 ea 02 XX ; Start 09/21/16 at 02:00 Diagnostic Test (Pha) (Accu-Chek) 1 ea 02 XX ; Start 09/22/16 at 02:00 Acetaminophen/ Hydrocodone Bitart ([place] (10/325)) 1 tab Q8H PRN PO PAIN Last administered on 09/21/16 02:29; Admin Dose 1 TAB; Start 09/21/16 at 02:25 STONE HERNANDEZ MD Sep 21, 2016 09:25
[2016-09-21 12:36] LABS: IRON 31 ug/dl (35-150)
[2016-09-21 12:45] LABS: TOTAL IRON BINDING CAPACITY 266 ug/dl (241-421)
--- NOTE | 2016-09-21 14:45 | RADRPT ---
PROCEDURE: Right knee radiograph. CLINICAL INDICATION: Right knee pain. TECHNIQUE: Single frontal view. COMPARISON: Prior study done earlier the same day. FINDINGS: This is a limited study as only a single frontal view was obtained. There is no fracture or disloca tion. There is no lytic or blastic lesion. There are severe degenerative changes predominately inv olving the medial joint compartment with joint space narrowing, osteophytes, subarticular sclerosis, and deformity. IMPRESSION: 1. Limited study. 2. Severe degenerative change. 3. No acute abnormality. RPTAT: QQ .Andrzej Alexandre MD, MD Date Time Electronically viewed and signed by .Andrzej Alexandre MD, MD on 09/21/2016 14:44 .R/
--- NOTE | 2016-09-21 14:46 | RADRPT ---
PROCEDURE: Left knee radiograph. CLINICAL INDICATION: Left knee pain. TECHNIQUE: Single frontal view [place] COMPARISON: Left knee radiographs dated 06/07/2016.. FINDINGS: Us is limited study with only a single frontal view obtained. There is no fracture or dislocation. There is no lytic or blastic lesion. There are degenerative changes with osteophytes arising from all 3 joint compartment margins. There is medial and lateral joint compartment narrowing and deform ity. IMPRESSION: 1. Severe degenerative changes of the left knee. 2. Limited study. 3. No acute abnormality. RPTAT: QQ .Andrzej Alexandre MD, MD Date Time Electronically viewed and signed by .Andrzej Alexandre MD, on 09/21/2016 14:45 .R/
[2016-09-22] VITALS (13 sets, daily range): BP systolic 100–136; BP diastolic 52–64; PULSE 63–81; RESP 18–20
[2016-09-22] MEDS: ACCU-CHEK XX SCH ×2 (02:00)
[2016-09-22] MEDS: HYDROCODONE/APAP (10/325) TAB PO PRN ×2 (02:36→20:11)
[2016-09-22] MEDS: AZITHROMYCIN 500MG/NS (PMX) 250 ML IVPB SCH (02:38)
[2016-09-22] MEDS: FUROSEMIDE 40 MG INJ IV SCH ×2 (05:45→17:36)
[2016-09-22] MEDS: ACETAMINOPHEN 325 MG TAB PO PRN ×2 (06:46→18:57)
[2016-09-22 07:50] LABS: BASOPHILS % 0.4 % (0.0-2.0); EOSINOPHILS # 0.2 10^3/ul (0.0-0.5); EOSINOPHILS % 1.8 % (0.0-7.0); HEMATOCRIT 35.6 % (37.0-47.0); HEMOGLOBIN 11.1 g/dl (12.0-16.0); LYMPHOCYTES # 2.3 10^3/ul (0.8-2.9); LYMPHOCYTES % 23.6 % (15.0-51.0); MEAN CORPUSCULAR HEMOGLOBIN 30.2 pg (29.0-33.0); MEAN CORPUSCULAR HGB CONC 31.2 g/dl (32.0-37.0); MEAN CORPUSCULAR VOLUME 96.7 fl (82.0-101.0); MEAN PLATELET VOLUME 11.9 fl (7.4-10.4); MONOCYTE # 0.6 10^3/ul (0.3-0.9); MONOCYTES % 6.4 % (0.0-11.0); NEUTROPHIL # 6.5 10^3/ul (1.6-7.5); NEUTROPHILS % 67.2 % (39.0-77.0); PLATELET COUNT 261 10^3/UL (140-415); RED BLOOD COUNT 3.68 10^6/ul (4.20-5.40); RED CELL DISTRIBUTION WIDTH 13.7 % (11.5-14.5); WHITE BLOOD COUNT 9.6 10^3/ul (4.8-10.8)
[2016-09-22] MEDS: INSULIN ASPART [NOVOLOG] 3 ML PEN SC SCH ×4 (07:52→21:00)
[2016-09-22] MEDS: ALBUTEROL/IPRATROPIUM (NEB) 3 ML AMP HHN SCH ×2 (08:00→16:36)
[2016-09-22] MEDS: IPRATROPIUM (NEB) 0.5 MG/2.5 ML AMP HHN SCH ×2 (08:00→16:00)
[2016-09-22] MEDS: POTASSIUM CHLORIDE (SR) 8 MEQ CAP PO SCH (08:13)
[2016-09-22] MEDS: LINAGLIPTIN 5 MG TABLET PO SCH (08:13)
[2016-09-22] MEDS: metFORMIN 500 MG TAB PO SCH ×2 (08:13→17:35)
[2016-09-22] MEDS: ESCITALOPRAM 10 MG TAB PO SCH (08:13)
[2016-09-22] MEDS: GABAPENTIN 300 MG CAP PO SCH ×2 (08:14→21:52)
[2016-09-22] MEDS: FLECAINIDE 50 MG TAB PO SCH ×2 (08:14→22:02)
[2016-09-22] MEDS: TIOTROPIUM 18 MCG CAPSULE INHA DEV INH SCH (08:15)
[2016-09-22] MEDS: SALMETEROL/FLUTICASONE 250/50 INHA INH SCH ×2 (08:15→21:59)
[2016-09-22] MEDS: LOSARTAN 50 MG TAB PO SCH ×2 (08:15→21:00)
[2016-09-22 08:24] LABS: ALBUMIN 3.6 g/dl (3.3-4.9); CALCIUM 9.1 mg/dl (8.4-10.2); CREATININE 0.98 mg/dl (0.44-1.00); MAGNESIUM 1.2 mg/dl (1.7-2.5); TOTAL PROTEIN 7.2 g/dl (6.1-8.1)
[2016-09-22] MEDS: ASPIRIN (EC) 81 MG TAB PO SCH (08:33)
[2016-09-22 08:47] LABS: THYROID STIMULATING HORMONE 2.19 MIU/L (0.465-4.680)
--- NOTE | 2016-09-22 09:19 | PN ---
Date/Time of Note Date/Time of Note DATE: 09/22/16 TIME: 09:15 Assessment/Plan VTE Prophylaxis VTE Prophylaxis Intervention: ambulation, anti-embolic stocking VTE Contraindication Reason: peripheral vascular disease Lines/Catheters IV Catheter Type (from Nrsg): [place] line still needed: No Urinary Cath still in place: Yes Reason Cath still needed: urinary retention Assessment/Plan Assessment/Plan . Congestive heart failure exacerbation with pulmonary edema.-improving. 2. Morbid obesity; Obesity hypopnea syndrome,hypercarbia with Pc02 57 3. Hallucinations, confusion, fear on and off 4. Hypertension, now normotensive. 5. History of having palpitations-now bradycardic; lowest rate 45- now 63bpm. 6. History of having bronchial asthma, now stable. 7. Wound of the postsurgical scar, right-sided abdomen, healed. 8. Status post cholecystectomy. 9. Postmenstrual syndrome. 10. Anxiety. 11. Claustrophobia. 12. Dyslipidemia. 13. Diabetes type 2. 14. History of having carbon dioxide retention. 15. Anemia of chronic disease with recent loss. 16. History of chronic kidney disease, improved. 17. History of having low iron and low magnesium levels. 18. Pain syndrome. 19. Major depression. 20. Altered level of consciousness. 21. Diverticulitis. 22. Left-sided chest pain. 23.carbon dioxide narcosis (Hx of) 24.Trophic changes of both legs with change of a color. 25.Pilling of the skin of nailbeds of both hands with deformities and trace of blood and swelling.26. 26.13 years bedridden 27.Decubitus of t he left gluteal area with mild redness of the calcaneal skin 28.Severe deconditioning 29.Daytime sleepiness 30.Severe krupa of knees, hips ans ankle joints 31.Calcaneal pain. 32.Umbilical reducible hernia 4-5cm in diameter.Postsurgical. 33.Chronic norco,percocet, and other controlled substance user. 34.Bradycardia 35.Low mag and iron levels Subjective 24 Hr Interval Summary Subjective hx not possible: pt critical Constitutional: diaphoresis, disoriented, poor po, requiring O2, No chills, No febrile, No improved, No no complaints, No other, No requiring IVF Eyes: discharge, redness, visual change ENT: bleeding, congestion, discharge, dysphagia, no complaints, other, pain, sore throat Respiratory: cough, pleuritic pain, shortness of breath, wheezing, No no complaints, No other, No pain, No sputum Cardiovascular: chest pain, lightheadedness, orthopenea, palpitations, paroxysmal nocturnal dyspnea Gastrointestinal: constipation, decreased appetite, flatus, nausea, passing stool, vomiting, No blood, No diarrhea, No no complaints, No other, No pain Genitourinary: No bleeding, No discharge, No dysuria, No flank pain, No hematuria, No no complaints, No other Musculoskeletal: back pain, bone/joint pain, neck pain, restricted range of motion, No no complaints, No other, No swelling Neurologic: confusion, dizziness, headache, syncope, No focal-weakness, No no complaints, No other, No seizure Lymphatic: No adenopathy, No lymphadema, No no complaints, No other, No tender nodes Psychological: anxiety, confusion, depression Exam/Review of Systems Vital Signs Vitals Vital Signs Date Time Temp Pulse Resp B/P Pulse Ox O2 Delivery O2 Flow Rate FiO2 09/22/16 07:39 98.2 55 20 101/58 98 09/22/16 06:00 2.0 09/21/16 20:00 Nasal Cannula Intake and Output 09/21/16 09/21/16 09/22/16 15:00 23:00 07:00 Intake Total 1000 ml 500 ml Output Total 1800 ml 1350 ml Balance -800 ml -850 ml Exam Constitutional: distress, obese, oriented, well developed Psych: anxiety, confusion, depression, No nl mood/affect, No no complaints, No other, No suicidal Head: atraumatic, hematomas, No lacerations, No normocephalic, No other Eyes: EOMI, PERRL, nl lids, No fundi, disc, No icteric, No nl conjunctiva, No nl sclera, No other ENMT: nl external ears & nose, tympanic membranes, No intubated, No mucosa pink and moist, No nl lips & teeth, No nl nasal mucosa & septum, No other Neck: bruits, jvd, thyromegaly, No masses, No non-tender, No nuchal rigidity, No other, No supple Respiratory: No clear to auscultation, No congested cough, No crackles/rales, No diminished breath sounds, No intercostal retraction, No labored breathing, No normal air movement, No other, No respirations, No tactile fremitus, No wheezing Cardiovascular: bruits, edema (decreased.), jugular venous distention (JVD), regular rate and rhythm, systolic murmur, No S3, No S4, No diastolic murmur, No gallop, No irregular rhythm, No murmurs /extra sounds, No nl pulses, No other, No rub Gastrointestinal: bowel sounds, distended (panus; very big with umbilical hernia.), hepatomegaly, rebound or guarding, surgical scars, tender, No ascites, No firm, No mass, No nl liver, spleen, No non-tender, No other, No soft, No splenomegaly Genitourinary - Female: CVA tenderness Musculoskeletal: joint tenderness, muscle tone, muscle weakness, nl gait and stance, range of motion, No nl extremities to inspection, No other, No spine non-tender, No swelling Extremities: calf tenderness, edema, normal pulses, No clubbing, No cyanosis, No other, No palpable cord, No pitting pedal edema , No tenderness Neurological: NEWS AGENT II-XII intact (decreased hearing.), confused, lethargic, numbness, No DTR's symmetric, No focal weakness, No nl mental status, No nl speech, No nl strength, No other, No reflexes, No unresponsive Skin: No diaphoresis, No ecchymosis, No laceration, No nl turgor, No other, No puncture, No rash or lesions Results Result Diagram: 09/22/1616 09/22/16 0717 Results 24 hrs Laboratory Tests Test 09/21/16 11:35 09/21/16 11:49 09/21/16 16:07 09/21/16 20:24 Iron Level 31 L Total Iron Binding Capacity 266 Percent Iron Saturation 12 L Bedside Glucose 126 105 120 Test 09/22/16 07:16 09/22/16 07:17 09/22/16 07:51 White Blood Count 9.6 Red Blood Count 3.68 L Hemoglobin 11.1 L Hematocrit 35.6 L Mean Corpuscular Volume 96.7 Mean Corpuscular Hemoglobin 30.2 Mean Corpuscular Hemoglobin Concent 31.2 L Red Cell Distribution Width 13.7 Platelet Count 261 Mean Platelet Volume 11.9 H Neutrophils % 67.2 Lymphocytes % 23.6 Monocytes % 6.4 Eosinophils % 1.8 Basophils % 0.4 Nucleated Red Blood Cells % 0.0 Neutrophils # 6.5 Lymphocytes # 2.3 Monocytes # 0.6 Eosinophils # 0.2 Basophils # 0.0 Nucleated Red Blood Cells # 0.0 Sodium Level 142 Potassium Level 4.0 Chloride Level 93 L Carbon Dioxide Level 34 H Anion Gap 19 H Blood Urea Nitrogen 26 #H Creatinine 0.98 Glucose Level 99 Calcium Level 9.1 Magnesium Level 1.2 L Total Bilirubin 0.0 L Direct Bilirubin 0.00 Indirect Bilirubin 0.0 Aspartate Amino Transf (AST/SGOT) 14 L Alanine Aminotransferase (ALT/SGPT) 28 Alkaline Phosphatase 98 Total Protein 7.2 Albumin 3.6 Globulin 3.60 H Albumin/Globulin Ratio 1.00 Vitamin B12 Level 299 Thyroid Stimulating Hormone (TSH) 2.190 Bedside Glucose 105 Medications Medications Current Medications Aspirin (Halfprin) 81 mg DAILY PO Last administered on 09/22/16 08:33; Admin Dose 81 MG; Start 09/21/16 at 09:00 Clonidine (Catapres) 0.1 mg DAILY PRN PO HTN; Start 09/21/16 at 01:30 Diphenhydramine HCl (Benadryl) 25 mg BID PRN PO ITCHING; Start 09/21/16 at 01:30 Escitalopram Oxalate (Lexapro) 10 mg DAILY PO Last administered on 09/22/16 08: 13; Admin Dose 10 MG; Start 09/21/16 at 09:00 Flecainide Acetate (Tambocor) 150 mg BID PO Last administered on 09/22/16 08:14 ; Admin Dose 150 MG; Start 09/21/16 at 09:00 Gabapentin (Neurontin) 300 mg BID PO Last administered on 09/22/16 08:14; Admin Dose 300 MG; Start 09/21/16 at 09:00 Linagliptin (Tradjenta) 5 mg DAILY PO Last administered on 09/22/16 08:13; Admin Dose 5 MG; Start 09/21/16 at 09:00 Losartan Potassium (Cozaar) 100 mg BID PO Last administered on 09/22/16 08:15; Admin Dose 100 MG; Start 09/21/16 at 09:00 Metoclopramide HCl (Reglan) 10 mg TID PRN PO NAUSEA AND/OR VOMITING; Start 09/21 at 01:30 Potassium Chloride (Micro-K) 8 meq DAILY PO Last administered on 09/22/16 08:13 ; Admin Dose 8 MEQ; Start 09/21/16 at 09:00 Salmeterol Xinafoate/ Fluticasone (Advair 250/50 Diskus) 1 inh BID INH Last administered on 09/22/16 08:15; Admin Dose 1 INH; Start 09/21/16 at 09:00 Tiotropium [place] 1 inh 1 inh DAILY INH Last administered on 09/22/16 08:15; Admin Dose 1 INH; Start 09/21/16 at 09:00 Azithromycin (Zithromax 500mg/ NS (Pmx)) 250 ml @ 250 mls/hr Q24H IVPB Last administered on 09/22/16 02:38; Admin Dose 250 MLS/HR; Start 09/21/16 at 03:00 Diagnostic Test (Pha) (Accu-Chek) 1 ea 02 XX ; Start 09/21/16 at 02:00 Diagnostic Test (Pha) (Accu-Chek) 1 ea 02 XX ; Start 09/22/16 at 02:00 Acetaminophen/ Hydrocodone Bitart ([place] (10/325)) 1 tab Q8H PRN PO PAIN Last administered on 09/22/16 02:36; Admin Dose 1 TAB; Start 09/21/16 at 02:25 Acetaminophen (Tylenol Tab) 650 mg Q6H PRN PO PAIN AND OR ELEVATED TEMP Last administered on 09/22/16 06:46; Admin Dose 650 MG; Start 09/22/16 at 06:30 STONE HERNANDEZ MD Sep 22, 2016 09:18
[2016-09-22] MEDS: SOD FERRIC GLUC COMPLX 125 MG in SOD CHLORIDE 0.9% 100 ML IVPB SCH (11:37)
[2016-09-22] MEDS: MAGNESIUM SULFATE 2 GM/50 ML 50 ML IVPB SCH (13:19)
--- NOTE | 2016-09-22 17:40 | CONS ---
Date/Time of Note Date/Time of Note DATE: 09/22/16 TIME: 17:35 Assessment/Plan Assessment/Plan Chief Complaint/Hosp Course 76 y/o with 1. Congestive heart failure exacerbation with pulmonary edema. responding well to iv lasix 2. Morbid obesity; Obesity hypopnea syndrome,hypercarbia with Pc02 57 with resp acidosis 3 Hypomagnesemia 4 Vit d defiency 4. Hypertension, now normotensive. 5. History of having palpitations-now bradycardic; lowest rate 45- now 63bpm. 6. History of having bronchial asthma, now stable. 7. Wound of the postsurgical scar, right-sided abdomen, healed. 8. Status post cholecystectomy. 9. Postmenstrual syndrome. 10. Anxiety. 11. Dyslipidemia. 12. Diabetes type 2. Plan - c/w Lasix 40 iv bid, good response to diurectics - Mg replacement with 2 g - Benefit from CPAP - Monitor electrolytes closely while on Lasix - On iv Fe - Pulmonary consult pending - Labs am Problems: Consultation Date/Type/Reason Admit Date/Time Sep 20, 2016 at 23:01 Date of Consultation: Sep 22, 2016 Type of Consultation: Nephrology Reason for Consultation Fluids and Electrolyte management Hx of Present Illness This is a 76-year-old female with a known history of asthma non-insulin- dependent diabetes mellitus on metformin and congestive heart failure. The patient presents to the emergency department complaining of intermittent chest pain for the past 3 days. radiating to left arm . The patient took 2 nitroglycerin just prior to arrival and prior to the medication her chest pain was 8 out of 10. After the nitroglycerin it has improved to 7 out of 10 in intensity. She also took aspirin just prior to arrival. The patient also complains of dyspnea and shortness of breath at rest. The patient is nonambulatory due to significant bilateral pedal edema. She states however that the shortness of breath is similar nature to previous exacerbations of congestive heart failure. Her grandson indicates that he believes she has sleep apnea but she is not currently on CPAP. She has not had a productive or nonproductive cough. She had no frequency urgency or dysuria. She is currently on 40 Mill grams of Lasix which she is supposed to take in the morning but states she has not taken this for the past several days as it causes her to urinate and given that she is unable to ambulate she states that this provides a significant amount discomfort. Renal was consulted for Electrolyte management Constitutional: diaphoresis, disoriented, poor po, requiring O2, No chills, No febrile, No improved, No no complaints, No other, No requiring IVF Eyes: discharge, redness, visual change ENT: bleeding, congestion, discharge, dysphagia, no complaints, other, pain, sore throat Respiratory: cough, pleuritic pain, shortness of breath, wheezing, No no complaints, No other, No pain, No sputum Cardiovascular: chest pain, lightheadedness, orthopenea, palpitations, paroxysmal nocturnal dyspnea Gastrointestinal: constipation, decreased appetite, flatus, nausea, passing stool, vomiting, No blood, No diarrhea, No no complaints, No other, No pain Genitourinary: No bleeding, No discharge, No dysuria, No flank pain, No hematuria, No no complaints, No other Musculoskeletal: back pain, bone/joint pain, neck pain, restricted range of motion, No no complaints, No other, No swelling Skin: bruising, erythema, laceration, pruritis, rash, skin lesions, No no complaints, No other Neurologic: confusion, dizziness, headache, syncope, No focal-weakness, No no complaints, No other, No seizure Lymphatic: No adenopathy, No lymphadema, No no complaints, No other, No tender nodes Psychological: anxiety, confusion, depression, No nl mood/affect, No no complaints, No other, No suicidal Immunologic: pruritis, urticaria, No immunodeficiency, No no complaints, No other, No rhinitis Past Medical History Medical History: angina, colitis, congestive heart failure, coronary artery disease, deep vein thrombosis, diabetes, diverticulitis, GERD, GI bleed, high cholesterol, hypertension, irritable bowel syndrome, pancreatitis, peptic ulcer disease, urinary tract infection Past Surgical History Past Surgical Hx: cholecystectomy, endoscopy, other Family History Significant Family History: other Social History Alcohol Use: none Smoking Status: Current some day smoker Drug Use: none Exam/Review of Systems Vital Signs Vitals Vital Signs Date Time Temp Pulse Resp B/P Pulse Ox O2 Delivery O2 Flow Rate FiO2 09/22/16 16:36 71 20 96 Nasal Cannula 2.0 09/22/16 16:17 98.8 123/64 Intake and Output 09/21/16 09/21/16 09/22/16 15:00 23:00 07:00 Intake Total 1000 ml 500 ml Output Total 1800 ml 1350 ml Balance -800 ml -850 ml Exam General :Well-developed. Well-nourished. Patient in mild respiratory distress on oxygen Neck: No nuchal rigidity. No lymphadenopathy. Thick neck Respiratory: crackels at bases s Cardiovascular: Regular rate regular rhythm.No murmurs. No rubs were appreciated.S1, S2 normal. . GI: obese Nontender. Non Distended. No pulsatile abdominal masses or bruits. No rebound. No guarding. Bowel sounds were present and normal. Muscle skeletal: Pain in left lower leg . Skin: 2+ pitting edema the bilateral lower extremities per NEURO: Patient was alert, awake, orientated x3 Results Result Diagram: 09/22/16 0716 09/22/16 0717 Results 24 hrs Laboratory Tests Test 09/21/16 20:24 09/22/16 07:16 09/22/16 07:17 09/22/16 07:51 Bedside Glucose 120 105 White Blood Count 9.6 Red Blood Count 3.68 L Hemoglobin 11.1 L Hematocrit 35.6 L Mean Corpuscular Volume 96.7 Mean Corpuscular Hemoglobin 30.2 Mean Corpuscular Hemoglobin Concent 31.2 L Red Cell Distribution Width 13.7 Platelet Count 261 Mean Platelet Volume 11.9 H Neutrophils % 67.2 Lymphocytes % 23.6 Monocytes % 6.4 Eosinophils % 1.8 Basophils % 0.4 Nucleated Red Blood Cells % 0.0 Neutrophils # 6.5 Lymphocytes # 2.3 Monocytes # 0.6 Eosinophils # 0.2 Basophils # 0.0 Nucleated Red Blood Cells # 0.0 Vitamin D 1,25-Dihydroxy < 12.8 L Sodium Level 142 Potassium Level 4.0 Chloride Level 93 L Carbon Dioxide Level 34 H Anion Gap 19 H Blood Urea Nitrogen 26 #H Creatinine 0.98 Glucose Level 99 Calcium Level 9.1 Magnesium Level 1.2 L Total Bilirubin 0.0 L Direct Bilirubin 0.00 Indirect Bilirubin 0.0 Aspartate Amino Transf (AST/SGOT) 14 L Alanine Aminotransferase (ALT/SGPT) 28 Alkaline Phosphatase 98 Total Protein 7.2 Albumin 3.6 Globulin 3.60 H Albumin/Globulin Ratio 1.00 Vitamin B12 Level 299 Thyroid Stimulating Hormone (TSH) 2.190 Test 09/22/16 12:05 Bedside Glucose 109 Medications Medications Current Medications Aspirin (Halfprin) 81 mg DAILY PO Last administered on 09/22/16 08:33; Admin Dose 81 MG; Start 09/21/16 at 09:00 Clonidine (Catapres) 0.1 mg DAILY PRN PO HTN; Start 09/21/16 at 01:30 Diphenhydramine HCl (Benadryl) 25 mg BID PRN PO ITCHING; Start 09/21/16 at 01:30 Escitalopram Oxalate (Lexapro) 10 mg DAILY PO Last administered on 09/22/16 08: 13; Admin Dose 10 MG; Start 09/21/16 at 09:00 Flecainide Acetate (Tambocor) 150 mg BID PO Last administered on 09/22/16 08:14 ; Admin Dose 150 MG; Start 09/21/16 at 09:00 Gabapentin (Neurontin) 300 mg BID PO Last administered on 09/22/16 08:14; Admin Dose 300 MG; Start 09/21/16 at 09:00 Linagliptin (Tradjenta) 5 mg DAILY PO Last administered on 09/22/16 08:13; Admin Dose 5 MG; Start 09/21/16 at 09:00 Losartan Potassium (Cozaar) 100 mg BID PO Last administered on 09/22/16 08:15; Admin Dose 100 MG; Start 09/21/16 at 09:00 Metoclopramide HCl (Reglan) 10 mg TID PRN PO NAUSEA AND/OR VOMITING; Start 09/21 at 01:30 Potassium Chloride (Micro-K) 8 meq DAILY PO Last administered on 09/22/16 08:13 ; Admin Dose 8 MEQ; Start 09/21/16 at 09:00 Salmeterol Xinafoate/ Fluticasone (Advair 250/50 Diskus) 1 inh BID INH Last administered on 09/22/16 08:15; Admin Dose 1 INH; Start 09/21/16 at 09:00 Tiotropium [place] 1 inh 1 inh DAILY INH Last administered on 09/22/16 08:15; Admin Dose 1 INH; Start 09/21/16 at 09:00 Azithromycin (Zithromax 500mg/ NS (Pmx)) 250 ml @ 250 mls/hr Q24H IVPB Last administered on 09/22/16 02:38; Admin Dose 250 MLS/HR; Start 09/21/16 at 03:00 Diagnostic Test (Pha) (Accu-Chek) 1 ea 02 XX ; Start 09/21/16 at 02:00 Diagnostic Test (Pha) (Accu-Chek) 1 ea 02 XX ; Start 09/22/16 at 02:00 Acetaminophen/ Hydrocodone Bitart ([place] (10/325)) 1 tab Q8H PRN PO PAIN Last administered on 09/22/16 02:36; Admin Dose 1 TAB; Start 09/21/16 at 02:25 Acetaminophen 650 mg 650 mg Q6H PRN PO PAIN AND OR ELEVATED TEMP Last administered on 09/22/16 06:46; Admin Dose 650 MG; Start 09/22/16 at 06:30 Magnesium Sulfate 50 ml @ 25 mls/hr DAILY IVPB Last administered on 09/22/16 13 :19; Admin Dose 25 MLS/HR; Start 09/22/16 at 09:30; Stop 09/24/16 at 09:00 Ferric Sodium Gluconate Complex/ Sodium Chloride ([place]lecit/NS) 110 ml @ 100 mls/hr Q24H IVPB Last administered on 09/22/16 11:37; Admin Dose 100 MLS/HR; Start 09/22/16 at 11:00; Stop 09/24/16 at 12:05 JOSE DOE MD Sep 22, 2016 17:40 JOSE DOE MD Sep 22, 2016 17:40
[2016-09-22 18:35] LABS: AADO2 Arterial 52.6 mmHg (7.0-24.0); Allen Test ACCEPTAB; Arterial COHb 0.6 % (0.0-3.0); Arterial Fraction of Oxyhgb 92.2 % (93.0-99.0); Arterial HCO3 32.2 mmol/L (22.0-26.0); Arterial MetHb 0.3 % (0.0-1.5); Arterial Total Hemglobin 12.4 g/dl (12.0-18.0); MODE NASAL CANNULA
[2016-09-23] VITALS (12 sets, daily range): BP systolic 110–138; BP diastolic 52–63; PULSE 66–81; RESP 16–20
[2016-09-23] MEDS: ACETAMINOPHEN 325 MG TAB PO PRN ×3 (01:12→21:25)
[2016-09-23] MEDS: ACCU-CHEK XX SCH ×2 (02:00)
[2016-09-23] MEDS: HYDROCODONE/APAP (10/325) TAB PO PRN ×2 (03:39→17:41)
[2016-09-23] MEDS: AZITHROMYCIN 500MG/NS (PMX) 250 ML IVPB SCH (03:40)
[2016-09-23] MEDS: FUROSEMIDE 40 MG INJ IV SCH (05:59)
[2016-09-23] MEDS: IPRATROPIUM (NEB) 0.5 MG/2.5 ML AMP HHN SCH ×2 (08:00→16:00)
[2016-09-23] MEDS: ALBUTEROL/IPRATROPIUM (NEB) 3 ML AMP HHN SCH ×3 (08:00→16:24)
[2016-09-23] MEDS: INSULIN ASPART [NOVOLOG] 3 ML PEN SC SCH ×4 (08:00→21:23)
[2016-09-23 08:01] LABS: ALBUMIN 3.8 g/dl (3.3-4.9); ALBUMIN/GLOBULIN RATIO 1.05; CALCIUM 8.8 mg/dl (8.4-10.2); CREATININE 0.82 mg/dl (0.44-1.00); TOTAL PROTEIN 7.4 g/dl (6.1-8.1)
[2016-09-23] MEDS: metFORMIN 500 MG TAB PO SCH ×2 (08:47→17:46)
[2016-09-23] MEDS: GABAPENTIN 300 MG CAP PO SCH ×2 (08:48→21:17)
[2016-09-23] MEDS: LINAGLIPTIN 5 MG TABLET PO SCH (08:48)
[2016-09-23] MEDS: ASPIRIN (EC) 81 MG TAB PO SCH (08:49)
[2016-09-23] MEDS: FLECAINIDE 50 MG TAB PO SCH ×2 (08:50→21:00)
[2016-09-23] MEDS: ESCITALOPRAM 10 MG TAB PO SCH (08:50)
[2016-09-23] MEDS: POTASSIUM CHLORIDE (SR) 8 MEQ CAP PO SCH (08:50)
[2016-09-23] MEDS: LOSARTAN 50 MG TAB PO SCH ×2 (08:50→21:17)
[2016-09-23] MEDS: TIOTROPIUM 18 MCG CAPSULE INHA DEV INH SCH (08:51)
[2016-09-23] MEDS: SALMETEROL/FLUTICASONE 250/50 INHA INH SCH ×2 (08:51→21:15)
[2016-09-23] MEDS: MAGNESIUM SULFATE 2 GM/50 ML 50 ML IVPB SCH (08:51)
[2016-09-23 10:28] LABS: AADO2 Arterial 43.2 mmHg (7.0-24.0); Allen Test ACCEPTAB; Arterial Base Excess 10.5 mmol/L (-3.0-3); Arterial COHb 0.6 % (0.0-3.0); Arterial Fraction of Oxyhgb 94.3 % (93.0-99.0); Arterial HCO3 37.4 mmol/L (22.0-26.0); Arterial MetHb 0.3 % (0.0-1.5); Arterial Total Hemglobin 12.2 g/dl (12.0-18.0); MODE NASAL CANNULA
--- NOTE | 2016-09-23 10:48 | PN ---
Date/Time of Note Date/Time of Note DATE: 09/23/16 TIME: 10:38 Assessment/Plan VTE Prophylaxis VTE Prophylaxis Intervention: ambulation, anti-embolic stocking VTE Contraindication Reason: peripheral vascular disease Lines/Catheters IV Catheter Type (from Nrsg): [place] line still needed: No Urinary Cath still in place: Yes Reason Cath still needed: urinary retention Assessment/Plan Assessment/Plan . Congestive heart failure exacerbation with pulmonary edema.. 2. Morbid obesity; Obesity hypopnea syndrome,hypercarbia with Pc02 57 3. Hallucinations, confusion, fear on and off 4. Hypertension, now normotensive. 5. History of having palpitations-now bradycardic; lowest rate 45- now 63bpm. 6. History of having bronchial asthma, now stable. 7. Wound of the postsurgical scar, right-sided abdomen, healed. 8. Status post cholecystectomy. 9. Postmenstrual syndrome. 10. Anxiety. 11. Claustrophobia. 12. Dyslipidemia. 13. Diabetes type 2. 14. History of having carbon dioxide retention. 15. Anemia of chronic disease with recent loss. 16. History of chronic kidney disease, improved. 17. History of having low iron and low magnesium levels-now active problem. 18. Pain syndrome. 19. Major depression. 20. Altered level of consciousness. 21. Diverticulitis. 22. Left-sided chest pain. 23.carbon dioxide narcosis (Hx of) 24.Trophic changes of both legs with change of a color. 25.Pilling of the skin of nailbeds of both hands with deformities and trace of blood and swelling.26. 26.13 years bedridden 27.Decubitus of t he left gluteal area with mild redness of the calcaneal skin 28.Severe deconditioning 29.Daytime sleepiness 30.Severe krupa of knees, hips ans ankle joints 31.Calcaneal pain. 32.Umbilical nonreducible hernia 4-5cm in diameter.Postsurgical. 33.Chronic norco,percocet, and other controlled substance user. 34.Bradycardia 35.Not aware of her insurance status and is unable to understand the talk about HMO.Constantly is talking about "my medicare". Can't accept the idea that her health insurance status is changed and I can't fallow her anymore due to of insurance policy. Refused to be seen by other doctor. Explained the plan of d/c in one day after knee injection(called dr. Weinberg) and nl vitals in am. Subjective 24 Hr Interval Summary Subjective hx not possible: pt critical Constitutional: poor po Eyes: pain ENT: congestion, pain, No bleeding, No discharge, No dysphagia, No no complaints, No other, No sore throat Respiratory: shortness of breath, No cough, No no complaints, No other, No pain, No pleuritic pain, No sputum, No wheezing Cardiovascular: chest pain, lightheadedness, orthopenea, palpitations Gastrointestinal: constipation, decreased appetite, flatus, pain, passing stool , No blood, No diarrhea, No nausea, No no complaints, No other, No vomiting Genitourinary: discharge, No bleeding, No dysuria, No flank pain, No hematuria, No no complaints, No other Musculoskeletal: back pain, bone/joint pain, neck pain, No no complaints, No other, No restricted range of motion, No swelling Skin: bruising, pruritis, rash, skin lesions, No erythema, No laceration, No no complaints, No other Neurologic: confusion, dizziness, headache, No focal-weakness, No no complaints, No other, No seizure, No syncope Endocrine: dry skin, temp intolerance, No no complaints, No other, No polydypsia, No polyuria Lymphatic: No adenopathy, No lymphadema, No no complaints, No other, No tender nodes Psychological: anxiety, confusion, depression, No nl mood/affect, No no complaints, No other, No suicidal Exam/Review of Systems Vital Signs Vitals Vital Signs Date Time Temp Pulse Resp B/P Pulse Ox O2 Delivery O2 Flow Rate FiO2 09/23/16 09:43 72 20 Nasal Cannula 2.0 09/23/16 07:48 98.0 115/52 98 Intake and Output 09/22/16 09/22/16 09/23/16 15:00 23:00 07:00 Intake Total 110 ml 750 ml 400 ml Output Total 2400 ml 1000 ml Balance 110 ml -1650 ml -600 ml Exam Constitutional: alert, distress, frail, obese, oriented (conmfusion on and off. Forgetful.), well developed Psych: anxiety, confusion, depression, No nl mood/affect, No no complaints, No other, No suicidal Head: atraumatic, normocephalic, No hematomas, No lacerations, No other Eyes: EOMI, PERRL, nl lids, No fundi, disc, No icteric, No nl conjunctiva, No nl sclera, No other ENMT: nl external ears & nose, nl nasal mucosa & septum, tympanic membranes Neck: jvd, No bruits, No masses, No non-tender, No nuchal rigidity, No other, No supple , No thyromegaly Respiratory: congested cough Cardiovascular: bruits, edema (no.), jugular venous distention (JVD), regular rate and rhythm, systolic murmur, No S3, No S4, No diastolic murmur, No gallop, No irregular rhythm, No murmurs /extra sounds, No nl pulses, No other, No rub Gastrointestinal: bowel sounds, distended, mass (umbilical hernia), nl liver, spleen, other (umbilical nonreducable scar.), surgical scars Genitourinary - Female: CVA tenderness Musculoskeletal: joint tenderness, muscle weakness, No spine non-tender Extremities: pitting pedal edema (no), tenderness, No calf tenderness, No clubbing, No cyanosis, No edema, No normal pulses, No other, No palpable cord Results Result Diagram: 09/22/16 0716 09/23/16 0707 Results 24 hrs Laboratory Tests Test 09/22/16 12:05 09/22/16 17:28 09/22/16 17:50 09/22/16 22:06 Bedside Glucose 109 128 125 Blood Gas Specimen Source Blood arterial Arterial Blood Date Drawn 09/22/2016 6:20:07 PM Arterial Blood pH (Temp corrected) 7.350 Arterial Blood pCO2 (Temp correct) 59.6 H Arterial Blood pO2 (Temp corrected) 69.4 L Arterial Blood HCO3 32.2 H Arterial Blood Base Excess 5.0 H Arterial Blood Oxygen Saturation 93.0 L Erasmo Test ACCEPTAB Arterial Blood Gas Puncture Site Right Radial Arterial Blood Carboxyhemoglobin 0.6 Arterial Blood Methemoglobin 0.3 Blood Gas A-a O2 Differential 52.6 H Oxyhemoglobin Percent 92.2 L Total Hemoglobin 12.4 Blood Gas Temperature 37.0 Blood Gas Modality NASAL CANNULA FiO2 27.0 Blood Gas Notified Whom DT Blood Gas Notified Time 09/22/2016 6:34:30 PM Test 09/23/16 07:07 09/23/16 08:03 09/23/16 09:00 Sodium Level 143 Potassium Level 4.0 Chloride Level 95 L Carbon Dioxide Level 34 H Anion Gap 18 H Blood Urea Nitrogen 26 H Creatinine 0.82 Glucose Level 112 Calcium Level 8.8 Total Bilirubin 0.0 L Direct Bilirubin 0.00 Indirect Bilirubin 0.0 Aspartate Amino Transf (AST/SGOT) 18 Alanine Aminotransferase (ALT/SGPT) 26 Alkaline Phosphatase 97 Total Protein 7.4 Albumin 3.8 Globulin 3.60 H Albumin/Globulin Ratio 1.05 Bedside Glucose 105 Blood Gas Specimen Source Blood arterial Arterial Blood Date Drawn 09/23/2016 10:10:16 AM Arterial Blood pH (Temp corrected) 7.403 Arterial Blood pCO2 (Temp correct) 61.4 H Arterial Blood pO2 (Temp corrected) 76.7 L Arterial Blood HCO3 37.4 H Arterial Blood Base Excess 10.5 H Arterial Blood Oxygen Saturation 95.2 Erasmo Test ACCEPTAB Arterial Blood Gas Puncture Site Left Radial Arterial Blood Carboxyhemoglobin 0.6 Arterial Blood Methemoglobin 0.3 Blood Gas A-a O2 Differential 43.2 H Oxyhemoglobin Percent 94.3 Total Hemoglobin 12.2 Blood Gas Temperature 37.0 Blood Gas Modality NASAL CANNULA FiO2 27.0 Blood Gas Notified Whom JLD Blood Gas Notified Time 09/23/2016 10:27:54 AM Medications Medications Current Medications Aspirin (Halfprin) 81 mg DAILY PO Last administered on 09/23/16 08:49; Admin Dose 81 MG; Start 09/21/16 at 09:00 Clonidine (Catapres) 0.1 mg DAILY PRN PO HTN; Start 09/21/16 at 01:30 Diphenhydramine HCl (Benadryl) 25 mg BID PRN PO ITCHING; Start 09/21/16 at 01:30 Escitalopram Oxalate (Lexapro) 10 mg DAILY PO Last administered on 09/23/16 08 :50; Admin Dose 10 MG; Start 09/21/16 at 09:00 Flecainide Acetate (Tambocor) 150 mg BID PO Last administered on 09/23/16 08: 50; Admin Dose 150 MG; Start 09/21/16 at 09:00 Gabapentin (Neurontin) 300 mg BID PO Last administered on 09/23/16 08:48; Admin Dose 300 MG; Start 09/21/16 at 09:00 Linagliptin (Tradjenta) 5 mg DAILY PO Last administered on 09/23/16 08:48; Admin Dose 5 MG; Start 09/21/16 at 09:00 Losartan Potassium (Cozaar) 100 mg BID PO Last administered on 09/23/16 08:50 ; Admin Dose 100 MG; Start 09/21/16 at 09:00 Metoclopramide HCl (Reglan) 10 mg TID PRN PO NAUSEA AND/OR VOMITING; Start 09/21 at 01:30 Potassium Chloride (Micro-K) 8 meq DAILY PO Last administered on 09/23/16 08: 50; Admin Dose 8 MEQ; Start 09/21/16 at 09:00 Salmeterol Xinafoate/ Fluticasone (Advair 250/50 Diskus) 1 inh BID INH Last administered on 09/23/16 08:51; Admin Dose 1 INH; Start 09/21/16 at 09:00 Tiotropium [place] 1 inh 1 inh DAILY INH Last administered on 09/23/16 08:51; Admin Dose 1 INH; Start 09/21/16 at 09:00 Azithromycin (Zithromax 500mg/ NS (Pmx)) 250 ml @ 250 mls/hr Q24H IVPB Last administered on 09/23/16 03:40; Admin Dose 250 MLS/HR; Start 09/21/16 at 03:00 Diagnostic Test (Pha) (Accu-Chek) 1 ea 02 XX ; Start 09/21/16 at 02:00 Diagnostic Test (Pha) (Accu-Chek) 1 ea 02 XX ; Start 09/22/16 at 02:00 Acetaminophen/ Hydrocodone Bitart ([place] (10/325)) 1 tab Q8H PRN PO PAIN Last administered on 09/23/16 03:39; Admin Dose 1 TAB; Start 09/21/16 at 02:25 Acetaminophen 650 mg 650 mg Q6H PRN PO PAIN AND OR ELEVATED TEMP Last administered on 09/23/16 08:51; Admin Dose 650 MG; Start 09/22/16 at 06:30 Magnesium Sulfate 50 ml @ 25 mls/hr DAILY IVPB Last administered on 09/23/16 08:51; Admin Dose 25 MLS/HR; Start 09/22/16 at 09:30; Stop 09/24/16 at 09:00 Ferric Sodium Gluconate Complex/ Sodium Chloride (Ferrlecit/NS) 110 ml @ 100 mls/hr Q24H IVPB Last administered on 09/22/16t 11:37; Admin Dose 100 MLS/HR; Start 09/22/16 at 11:00; Stop 09/24/16 at 12:05 Polyethylene Glycol (Miralax) 17 gm BID PO ; Start 09/23/16 at 10:30 Docusate Sodium (Colace) 250 mg BID PO ; Start 09/23/16 at 10:30 STONE HERNANDEZ MD Sep 23, 2016 10:48
[2016-09-23] MEDS: POLYETHYLENE GLYCOL 17 GM PACKET PO SCH ×2 (11:25→21:15)
[2016-09-23] MEDS: SOD FERRIC GLUC COMPLX 125 MG in SOD CHLORIDE 0.9% 100 ML IVPB SCH (11:25)
[2016-09-23] MEDS: DOCUSATE SODIUM 250 MG CAP PO SCH ×2 (11:25→21:17)
--- NOTE | 2016-09-23 16:35 | CONS ---
Date/Time of Note Date/Time of Note DATE: 09/23/16 TIME: 16:31 Assessment/Plan Assessment/Plan Chief Complaint/Hosp Course 76 y/o with 1. Congestive heart failure exacerbation with pulmonary edema. responding well to iv lasix 2. Morbid obesity; Obesity hypopnea syndrome,hypercarbia with Pc02 57 with resp acidosis 3 Hypomagnesemia 4 Vit d defiency 4. Hypertension, now normotensive. 5. History of having palpitations-now bradycardic; lowest rate 45- now 63bpm. 6. History of having bronchial asthma, now stable. 7. Wound of the postsurgical scar, right-sided abdomen, healed. 8. Status post cholecystectomy. 9. Postmenstrual syndrome. 10. Anxiety. 11. Dyslipidemia. 12. Diabetes type 2. Plan - Agree with lasix 40 mg po bid - on Mg replacement, recheck labs tmw - Benefit from CPAP - Monitor electrolytes closely while on Lasix - On iv Fe for anemia - Labs am Problems: Consultation Date/Type/Reason Admit Date/Time Sep 20, 2016 at 23:01 Initial Consult Date 09/22/16 Type of Consultation: Nephrology 24 HR Interval Summary Free Text/Dictation UOP 2 L on lasix iv switched to po lasix Left leg pain> ortho pending Exam/Review of Systems Vital Signs Vitals Vital Signs Date Time Temp Pulse Resp B/P Pulse Ox O2 Delivery O2 Flow Rate FiO2 09/23/16 12:00 71 09/23/16 11:53 98.1 20 126/58 98 09/23/16 11:00 Nasal Cannula 2.0 Intake and Output 09/22/16 09/22/16 09/23/16 15:00 23:00 07:00 Intake Total 110 ml 750 ml 400 ml Output Total 2400 ml 1000 ml Balance 110 ml -1650 ml -600 ml Results General :Well-developed. Well-nourished. Obese, on oxygen Neck: No nuchal rigidity. No lymphadenopathy. Thick neck Respiratory: dec breath sounds at bases Cardiovascular: Regular rate regular rhythm.No murmurs. No rubs were appreciated.S1, S2 normal. . GI: obese Nontender. Non Distended. No pulsatile abdominal masses or bruits. No rebound. No guarding. Bowel sounds were present and normal. Muscle skeletal: Pain in left lower leg . Skin: 2+ pitting edema the bilateral lower extremities NEURO: Patient was alert, awake, orientated x3 Result Diagram: 09/22/16 0716 09/23/16 0707 Results 24 hrs Laboratory Tests Test 09/22/16 17:28 09/22/16 17:50 09/22/16 22:06 09/23/16 07:07 Bedside Glucose 128 125 Blood Gas Specimen Source Blood arterial Arterial Blood Date Drawn 09/22/2016 6:20:07 PM Arterial Blood pH (Temp corrected) 7.350 Arterial Blood pCO2 (Temp correct) 59.6 H Arterial Blood pO2 (Temp corrected) 69.4 L Arterial Blood HCO3 32.2 H Arterial Blood Base Excess 5.0 H Arterial Blood Oxygen Saturation 93.0 L Erasmo Test ACCEPTAB Arterial Blood Gas Puncture Site Right Radial Arterial Blood Carboxyhemoglobin 0.6 Arterial Blood Methemoglobin 0.3 Blood Gas A-a O2 Differential 52.6 H Oxyhemoglobin Percent 92.2 L Total Hemoglobin 12.4 Blood Gas Temperature 37.0 Blood Gas Modality NASAL CANNULA FiO2 27.0 Blood Gas Notified Whom DT Blood Gas Notified Time 09/22/2016 6:34:30 PM Sodium Level 143 Potassium Level 4.0 Chloride Level 95 L Carbon Dioxide Level 34 H Anion Gap 18 H Blood Urea Nitrogen 26 H Creatinine 0.82 Glucose Level 112 Calcium Level 8.8 Total Bilirubin 0.0 L Direct Bilirubin 0.00 Indirect Bilirubin 0.0 Aspartate Amino Transf (AST/SGOT) 18 Alanine Aminotransferase (ALT/SGPT) 26 Alkaline Phosphatase 97 Total Protein 7.4 Albumin 3.8 Globulin 3.60 H Albumin/Globulin Ratio 1.05 Test 09/23/16 08:03 09/23/16 09:00 09/23/16 11:58 Bedside Glucose 105 109 Blood Gas Specimen Source Blood arterial Arterial Blood Date Drawn 09/23/2016 10:10:16 AM Arterial Blood pH (Temp corrected) 7.403 Arterial Blood pCO2 (Temp correct) 61.4 H Arterial Blood pO2 (Temp corrected) 76.7 L Arterial Blood HCO3 37.4 H Arterial Blood Base Excess 10.5 H Arterial Blood Oxygen Saturation 95.2 Erasmo Test ACCEPTAB Arterial Blood Gas Puncture Site Left Radial Arterial Blood Carboxyhemoglobin 0.6 Arterial Blood Methemoglobin 0.3 Blood Gas A-a O2 Differential 43.2 H Oxyhemoglobin Percent 94.3 Total Hemoglobin 12.2 Blood Gas Temperature 37.0 Blood Gas Modality NASAL CANNULA FiO2 27.0 Blood Gas Notified Whom JLD Blood Gas Notified Time 09/23/2016 10:27:54 AM Medications Medications Current Medications Aspirin (Halfprin) 81 mg DAILY PO Last administered on 09/23/16 08:49; Admin Dose 81 MG; Start 09/21/16 at 09:00 Clonidine (Catapres) 0.1 mg DAILY PRN PO HTN; Start 09/21/16 at 01:30 Diphenhydramine HCl (Benadryl) 25 mg BID PRN PO ITCHING; Start 09/21/16 at 01:30 Escitalopram Oxalate (Lexapro) 10 mg DAILY PO Last administered on 09/23/16 08 :50; Admin Dose 10 MG; Start 09/21/16 at 09:00 Flecainide Acetate (Tambocor) 150 mg BID PO Last administered on 09/23/16 08: 50; Admin Dose 150 MG; Start 09/21/16 at 09:00 Gabapentin (Neurontin) 300 mg BID PO Last administered on 09/23/16 08:48; Admin Dose 300 MG; Start 09/21/16 at 09:00 Linagliptin (Tradjenta) 5 mg DAILY PO Last administered on 09/23/16 08:48; Admin Dose 5 MG; Start 09/21/16 at 09:00 Losartan Potassium (Cozaar) 100 mg BID PO Last administered on 09/23/16 08:50 ; Admin Dose 100 MG; Start 09/21/16 at 09:00 Metoclopramide HCl (Reglan) 10 mg TID PRN PO NAUSEA AND/OR VOMITING; Start 09/21 at 01:30 Potassium Chloride (Micro-K) 8 meq DAILY PO Last administered on 09/23/16 08: 50; Admin Dose 8 MEQ; Start 09/21/16 at 09:00 Salmeterol Xinafoate/ Fluticasone (Advair 250/50 Diskus) 1 inh BID INH Last administered on 09/23/16 08:51; Admin Dose 1 INH; Start 09/21/16 at 09:00 Tiotropium [place] 1 inh 1 inh DAILY INH Last administered on 09/23/16 08:51; Admin Dose 1 INH; Start 09/21/16 at 09:00 Azithromycin (Zithromax 500mg/ NS (Pmx)) 250 ml @ 250 mls/hr Q24H IVPB Last administered on 09/23/16 03:40; Admin Dose 250 MLS/HR; Start 09/21/16 at 03:00 Diagnostic Test (Pha) (Accu-Chek) 1 ea 02 XX ; Start 09/21/16 at 02:00 Diagnostic Test (Pha) (Accu-Chek) 1 ea 02 XX ; Start 09/22/16 at 02:00 Acetaminophen/ Hydrocodone Bitart ([place] (10/325)) 1 tab Q8H PRN PO PAIN Last administered on 09/23/16 03:39; Admin Dose 1 TAB; Start 09/21/16 at 02:25 Acetaminophen 650 mg 650 mg Q6H PRN PO PAIN AND OR ELEVATED TEMP Last administered on 09/23/16 08:51; Admin Dose 650 MG; Start 09/22/16 at 06:30 Magnesium Sulfate 50 ml @ 25 mls/hr DAILY IVPB Last administered on 09/23/16 08:51; Admin Dose 25 MLS/HR; Start 09/22/16 at 09:30; Stop 09/24/16 at 09:00 Ferric Sodium Gluconate Complex/ Sodium Chloride (Ferrlecit/NS) 110 ml @ 100 mls/hr Q24H IVPB Last administered on 09/23/16 11:25; Admin Dose 100 MLS/HR; Start 09/22/16 at 11:00; Stop 09/24/16 at 12:05 Polyethylene Glycol (Miralax) 17 gm BID PO Last administered on 09/23/16 11:25 ; Admin Dose 17 GM; Start 09/23/16 at 10:30 Docusate Sodium (Colace) 250 mg BID PO Last administered on 09/23/16 11:25; Admin Dose 250 MG; Start 09/23/16 at 10:30 JOSE DOE MD Sep 23, 2016 16:35
[2016-09-23] MEDS: FUROSEMIDE 40 MG TAB PO SCH (17:47)
[2016-09-24] VITALS (15 sets, daily range): BP systolic 108–131; BP diastolic 53–60; PULSE 60–70; RESP 15–22
[2016-09-24] MEDS: HYDROCODONE/APAP (10/325) TAB PO PRN ×4 (01:41→20:53)
[2016-09-24] MEDS: ACCU-CHEK XX SCH ×2 (01:43→01:48)
[2016-09-24] MEDS: AZITHROMYCIN 500MG/NS (PMX) 250 ML IVPB SCH (02:52)
[2016-09-24] MEDS: FUROSEMIDE 40 MG TAB PO SCH ×2 (06:00→17:23)
[2016-09-24] MEDS: INSULIN ASPART [NOVOLOG] 3 ML PEN SC SCH ×4 (07:36→21:00)
[2016-09-24] MEDS: IPRATROPIUM (NEB) 0.5 MG/2.5 ML AMP HHN SCH ×2 (08:00→16:00)
[2016-09-24] MEDS: MAGNESIUM SULFATE 2 GM/50 ML 50 ML IVPB SCH (08:26)
[2016-09-24] MEDS: SALMETEROL/FLUTICASONE 250/50 INHA INH SCH ×2 (08:27→20:49)
[2016-09-24] MEDS: POTASSIUM CHLORIDE (SR) 8 MEQ CAP PO SCH (08:27)
[2016-09-24] MEDS: LOSARTAN 50 MG TAB PO SCH ×2 (08:28→21:04)
[2016-09-24] MEDS: LINAGLIPTIN 5 MG TABLET PO SCH (08:28)
[2016-09-24] MEDS: GABAPENTIN 300 MG CAP PO SCH ×2 (08:28→20:49)
[2016-09-24] MEDS: ASPIRIN (EC) 81 MG TAB PO SCH (08:29)
[2016-09-24] MEDS: TIOTROPIUM 18 MCG CAPSULE INHA DEV INH SCH (08:29)
[2016-09-24] MEDS: DOCUSATE SODIUM 250 MG CAP PO SCH ×2 (08:29→20:49)
[2016-09-24] MEDS: POLYETHYLENE GLYCOL 17 GM PACKET PO SCH ×2 (08:29→20:49)
[2016-09-24] MEDS: ESCITALOPRAM 10 MG TAB PO SCH (08:29)
[2016-09-24] MEDS: metFORMIN 500 MG TAB PO SCH ×2 (08:29→17:23)
[2016-09-24] MEDS: ALBUTEROL/IPRATROPIUM (NEB) 3 ML AMP HHN SCH ×2 (08:44→16:39)
[2016-09-24 08:45] LABS: MAGNESIUM 1.6 mg/dl (1.7-2.5); PHOSPHORUS 3.3 mg/dl (2.5-4.9)
[2016-09-24 08:49] LABS: CALCIUM 8.9 mg/dl (8.4-10.2); CREATININE 0.71 mg/dl (0.44-1.00); POTASSIUM 3.8 mmol/L (3.5-5.1)
[2016-09-24] MEDS ORDERED: MAGNESIUM SULFATE 3 GM in SOD CHLORIDE 0.9% 100 ML IVPB ONE (09:00)
--- NOTE | 2016-09-24 09:18 | RADRPT ---
PROCEDURE: Chest x-ray CLINICAL INDICATION: Shortness of breath TECHNIQUE: Chest single view COMPARISON: 09/20/2016 FINDINGS: There is stable moderate cardiomegaly and an sclerotic aortic calcification. Ongoing mild degree CH F is identified. No confluent pneumonia seen. Costophrenic angles sharp. IMPRESSION: Cardiomegaly with ongoing mild CHF Atherosclerotic aortic calcification RPTAT: HH .Drew Weir MD, MD Date Time Electronically viewed and signed by .Drew Weir MD, on 09/24/2016 09:17 .W/
--- NOTE | 2016-09-24 10:36 | RADRPT ---
PROCEDURE: Cervical Spine Radiographs CLINICAL INDICATION: Neck pain. COMPARISON: CT 06/11/2016 TECHNIQUE: AP and lateral views of the cervical spine. FINDINGS: On the lateral view, only C2-C3 are visualized. 3 mm anterolisthesis of C2 on C3. Mild degenerative changes of the lower cervical spine which are only partially characterized. Mild pulmonary vascular congestion, right more than left with alveolar opacities indicating pulmonar y edema. Aortic atherosclerosis. IMPRESSION: 1. Limited view of the cervical spine with suggestion of 3 mm anterolisthesis of C2 on C3. Repeat e xamination or CT can be performed if clinically desired. 2. Congestive heart failure with pulmonary edema on the right. RPTAT: PP Physician Kelechi Date Time Electronically viewed and signed by Physician Kelechi on 09/24/2016 10:36 LG/
[2016-09-24] MEDS: FLECAINIDE 100 MG TAB PO SCH ×2 (11:00→20:49)
[2016-09-24] MEDS: SOD FERRIC GLUC COMPLX 125 MG in SOD CHLORIDE 0.9% 100 ML IVPB SCH (11:34)
[2016-09-24 12:36] LABS: AADO2 Arterial 30.1 mmHg (7.0-24.0); Allen Test ACCEPTAB; Arterial Base Excess 11.4 mmol/L (-3.0-3); Arterial COHb 0.8 % (0.0-3.0); Arterial Fraction of Oxyhgb 95.9 % (93.0-99.0); Arterial HCO3 38.1 mmol/L (22.0-26.0); Arterial MetHb 0.3 % (0.0-1.5); Arterial Total Hemglobin 12.7 g/dl (12.0-18.0); MODE NASAL CANNULA
[2016-09-24] MEDS ORDERED: MAGNESIUM SULFATE 1 GM/D5W 100 ML IVPB ONE (14:00)
--- NOTE | 2016-09-24 14:47 | CONS ---
Date/Time of Note Date/Time of Note DATE: 09/24/16 TIME: 14:44 Assessment/Plan Assessment/Plan Chief Complaint/Hosp Course 76 y/o with 1. Congestive heart failure exacerbation with pulmonary edema. responding well to iv lasix 2. Morbid obesity; Obesity hypopnea syndrome,hypercarbia with Pc02 57 with resp acidosis 3 Hypomagnesemia 4 Vit d defiency 4. Hypertension, now normotensive. 5. History of having palpitations-now bradycardic; lowest rate 45- now 63bpm. 6. History of having bronchial asthma, now stable. 7. Wound of the postsurgical scar, right-sided abdomen, healed. 8. Status post cholecystectomy. 9. Postmenstrual syndrome. 10. Anxiety. 11. Dyslipidemia. 12. Diabetes type 2. Plan - c/w lasix 40 mg po bid - on Mg replacement 3 g( 1.6 level today) - agree with CPAP - Monitor electrolytes closely while on Lasix - On iv Fe for anemia - Labs am Problems: Consultation Date/Type/Reason Admit Date/Time Sep 20, 2016 at 23:01 Initial Consult Date 09/22/16 Type of Consultation: Nephrology 24 HR Interval Summary Free Text/Dictation Joint pain, said she is going to have injection Denies cp Neg 2.2 L Exam/Review of Systems Vital Signs Vitals Vital Signs Date Time Temp Pulse Resp B/P Pulse Ox O2 Delivery O2 Flow Rate FiO2 09/24/16 12:35 97.6 69 18 131/60 96 09/24/16 08:46 Nasal Cannula 2.0 09/24/16 04:49 40 Intake and Output 09/23/16 09/23/16 09/24/16 15:00 23:00 07:00 Intake Total 160 ml 600 ml 800 ml Output Total 2625 ml 1200 ml Balance 160 ml -2025 ml -400 ml Exam General :Well-developed. Well-nourished. Obese, on oxygen Neck: No nuchal rigidity. No lymphadenopathy. Thick neck Respiratory: dec breath sounds at bases Cardiovascular: Regular rate regular rhythm.No murmurs. No rubs were appreciated.S1, S2 normal. . GI: obese Nontender. Non Distended. No pulsatile abdominal masses or bruits. No rebound. No guarding. Bowel sounds were present and normal. Muscle skeletal: Pain in left lower leg . Skin: 2+ pitting edema the bilateral lower extremities NEURO: Patient was alert, awake, orientated x3 Results Result Diagram: 09/22/16 0716 09/24/16 0725 Results 24 hrs Laboratory Tests Test 09/23/16 17:13 09/23/16 20:42 09/24/16 01:46 09/24/16 07:25 Bedside Glucose 116 203 103 Sodium Level 140 Potassium Level 3.8 Chloride Level 91 L Carbon Dioxide Level 37 H Anion Gap 16 Blood Urea Nitrogen 17 # Creatinine 0.71 Glucose Level 89 Calcium Level 8.9 Phosphorus Level 3.3 Magnesium Level 1.6 L Test 09/24/16 07:28 09/24/16 09:12 09/24/16 11:34 Bedside Glucose 91 128 Blood Gas Specimen Source Blood arterial Arterial Blood Date Drawn 09/24/2016 12:20:03 PM Arterial Blood pH (Temp corrected) 7.421 Arterial Blood pCO2 (Temp correct) 59.9 H Arterial Blood pO2 (Temp corrected) 91.6 H Arterial Blood HCO3 38.1 H Arterial Blood Base Excess 11.4 H Arterial Blood Oxygen Saturation 97.0 Erasmo Test ACCEPTAB Arterial Blood Gas Puncture Site Left Radial Arterial Blood Carboxyhemoglobin 0.8 Arterial Blood Methemoglobin 0.3 Blood Gas A-a O2 Differential 30.1 H Oxyhemoglobin Percent 95.9 Total Hemoglobin 12.7 Blood Gas Temperature 37.0 Blood Gas Modality NASAL CANNULA FiO2 27.0 Blood Gas Notified Whom JLD Blood Gas Notified Time 09/24/2016 12:36:36 PM Medications Medications Current Medications Aspirin (Halfprin) 81 mg DAILY PO Last administered on 09/24/16 08:29; Admin Dose 81 MG; Start 09/21/16 at 09:00 Clonidine (Catapres) 0.1 mg DAILY PRN PO HTN; Start 09/21/16 at 01:30 Diphenhydramine HCl (Benadryl) 25 mg BID PRN PO ITCHING; Start 09/21/16 at 01:30 Escitalopram Oxalate (Lexapro) 10 mg DAILY PO Last administered on 09/24/16 08 :29; Admin Dose 10 MG; Start 09/21/16 at 09:00 Gabapentin (Neurontin) 300 mg BID PO Last administered on 09/24/16 08:28; Admin Dose 300 MG; Start 09/21/16 at 09:00 Linagliptin (Tradjenta) 5 mg DAILY PO Last administered on 09/24/16 08:28; Admin Dose 5 MG; Start 09/21/16 at 09:00 Losartan Potassium (Cozaar) 100 mg BID PO Last administered on 09/24/16 08:28 ; Admin Dose 100 MG; Start 09/21/16 at 09:00 Metoclopramide HCl (Reglan) 10 mg TID PRN PO NAUSEA AND/OR VOMITING; Start 09/21 at 01:30 Potassium Chloride (Micro-K) 8 meq DAILY PO Last administered on 09/24/16 08: 27; Admin Dose 8 MEQ; Start 09/21/16 at 09:00 Salmeterol Xinafoate/ Fluticasone (Advair 250/50 Diskus) 1 inh BID INH Last administered on 09/24/16 08:27; Admin Dose 1 INH; Start 09/21/16 at 09:00 Tiotropium [place] 1 inh 1 inh DAILY INH Last administered on 09/24/16 08:29; Admin Dose 1 INH; Start 09/21/16 at 09:00 Azithromycin (Zithromax 500mg/ NS (Pmx)) 250 ml @ 250 mls/hr Q24H IVPB Last administered on 09/24/16 02:52; Admin Dose 250 MLS/HR; Start 09/21/16 at 03:00 Diagnostic Test (Pha) (Accu-Chek) 1 ea 02 XX Last administered on 09/24/16 01: 43; Admin Dose 1 EA; Start 09/21/16 at 02:00 Diagnostic Test (Pha) (Accu-Chek) 1 ea 02 XX Last administered on 09/24/16 01: 48; Admin Dose 1 EA; Start 09/22/16 at 02:00 Acetaminophen/ Hydrocodone Bitart ([place] (10/325)) 1 tab Q8H PRN PO PAIN Last administered on 09/24/16 12:43; Admin Dose 1 TAB; Start 09/21/16 at 02:25 Acetaminophen (Tylenol Tab) 650 mg Q6H PRN PO PAIN AND OR ELEVATED TEMP Last administered on 09/23/16 21:25; Admin Dose 650 MG; Start 09/22/16 at 06:30 Polyethylene Glycol (Miralax) 17 gm BID PO Last administered on 09/23/16 21:15 ; Admin Dose 17 GM; Start 09/23/16 at 10:30 Docusate Sodium (Colace) 250 mg BID PO Last administered on 09/23/16 21:17; Admin Dose 250 MG; Start 09/23/16 at 10:30 Flecainide Acetate 150 mg 150 mg BID PO ; Start 09/24/16 at 11:00 Magnesium Sulfate/ Dextrose (Magnesium Sulfate 1 Gm/D5W) 100 ml @ 100 mls/hr ONCE ONCE IVPB ; Start 09/24/16 at 14:00; Stop 09/24/16 at 14:59 JOSE DOE MD Sep 24, 2016 14:47
--- NOTE | 2016-09-24 15:19 | CONS ---
Date/Time of Note Date/Time of Note DATE: 09/24/16 TIME: 15:11 Assessment/Plan Assessment/Plan Chief Complaint/Hosp Course Assessment 1. Chest pain rule out ACS 2. Morbid obesity 3. Likely underlying obstructive sleep apnea 4. Chronic bronchitis 5. Chronic pain 6. Diabetes mellitus Plan 1. Encouraged noninvasive positive pressure ventilation at night 2. Consider home sleep study 3. Supplemental O2 as needed 4. Bronchodilators 5. Cardiac recommendations Disposition Follow-up with me in the office for workup of sleep apnea. Problems: Consultation Date/Type/Reason Admit Date/Time Sep 20, 2016 at 23:01 Date of Consultation: Sep 24, 2016 Type of Consultation: Pulmonary Hx of Present Illness 76-year-old lady with a history of chronic bronchitis [id number] diabetes and congestive cardiac failure presented with 3 day history of intermittent chest pain lasting over several hours. She also had dyspnea on exertion however she is mostly bedbound. She had no significant hypoxemia on admission no fever no chills however at night noted to have moderate desaturation requiring addition of supplemental O2. She has been seen by myself in the past and there was concern for possible underlying obstructive sleep apnea however the patient had declined noninvasive positive pressure ventilation. She has some daytime sleepiness and fatigue and her morbid obesity and neck exam is consistent with likely obstructive sleep apnea. As above. Constitutional: diaphoresis, disoriented, poor po, requiring O2, No chills, No febrile, No improved, No no complaints, No other, No requiring IVF Eyes: discharge, redness, visual change ENT: bleeding, congestion, discharge, dysphagia, no complaints, other, pain, sore throat Respiratory: cough, pleuritic pain, shortness of breath, wheezing, No no complaints, No other, No pain, No sputum Cardiovascular: chest pain, lightheadedness, orthopenea, palpitations, paroxysmal nocturnal dyspnea Gastrointestinal: constipation, decreased appetite, flatus, nausea, passing stool, vomiting, No blood, No diarrhea, No no complaints, No other, No pain Genitourinary: No bleeding, No discharge, No dysuria, No flank pain, No hematuria, No no complaints, No other Musculoskeletal: back pain, bone/joint pain, neck pain, restricted range of motion, No no complaints, No other, No swelling Skin: bruising, erythema, laceration, pruritis, rash, skin lesions, No no complaints, No other Neurologic: confusion, dizziness, headache, syncope, No focal-weakness, No no complaints, No other, No seizure Endocrine: dry skin, temp intolerance Lymphatic: No adenopathy, No lymphadema, No no complaints, No other, No tender nodes Psychological: anxiety, confusion, depression, No nl mood/affect, No no complaints, No other, No suicidal Immunologic: pruritis, urticaria, No immunodeficiency, No no complaints, No other, No rhinitis Past Medical History As above. Medical History: angina, colitis, congestive heart failure, coronary artery disease, deep vein thrombosis, diabetes, diverticulitis, GERD, GI bleed, high cholesterol, hypertension, irritable bowel syndrome, pancreatitis, peptic ulcer disease, urinary tract infection Past Surgical History Past Surgical Hx: cholecystectomy, endoscopy, other Social History Alcohol Use: none Smoking Status: Current some day smoker Drug Use: none Exam/Review of Systems Vital Signs Vitals Vital Signs Date Time Temp Pulse Resp B/P Pulse Ox O2 Delivery O2 Flow Rate FiO2 09/24/16 12:35 97.6 69 18 131/60 96 09/24/16 08:46 Nasal Cannula 2.0 09/24/16 04:49 40 Intake and Output 09/23/16 09/23/16 09/24/16 14:59 22:59 06:59 Intake Total 160 ml 600 ml 800 ml Output Total 2625 ml 1200 ml Balance 160 ml -2025 ml -400 ml Exam GENERAL: Morbidly obese [place] lady acute distress VITAL SIGNS: per chart NECK: Supple. No JVD or lymphadenopathy. CARDIAC EXAM: S1, S2. No added sounds or murmurs. CHEST: clear bilaterally, No added sounds, rales or wheezes ABDOMEN: Soft, nontender. No guarding or rebound. EXTREMITIES: No cyanosis, clubbing edema +2 NEUROLOGIC: Generalized weakness. Results Result Diagram: 09/22/16 0716 09/24/16 0725 Results 24 hrs Laboratory Tests Test 09/23/16 17:13 09/23/16 20:42 09/24/16 01:46 09/24/16 07:25 Bedside Glucose 116 203 103 Sodium Level 140 Potassium Level 3.8 Chloride Level 91 L Carbon Dioxide Level 37 H Anion Gap 16 Blood Urea Nitrogen 17 # Creatinine 0.71 Glucose Level 89 Calcium Level 8.9 Phosphorus Level 3.3 Magnesium Level 1.6 L Test 09/24/16 07:28 09/24/16 09:12 09/24/16 11:34 Bedside Glucose 91 128 Blood Gas Specimen Source Blood arterial Arterial Blood Date Drawn 09/24/2016 12:20:03 PM Arterial Blood pH (Temp corrected) 7.421 Arterial Blood pCO2 (Temp correct) 59.9 H Arterial Blood pO2 (Temp corrected) 91.6 H Arterial Blood HCO3 38.1 H Arterial Blood Base Excess 11.4 H Arterial Blood Oxygen Saturation 97.0 Erasmo Test ACCEPTAB Arterial Blood Gas Puncture Site Left Radial Arterial Blood Carboxyhemoglobin 0.8 Arterial Blood Methemoglobin 0.3 Blood Gas A-a O2 Differential 30.1 H Oxyhemoglobin Percent 95.9 Total Hemoglobin 12.7 Blood Gas Temperature 37.0 Blood Gas Modality NASAL CANNULA FiO2 27.0 Blood Gas Notified Whom JLD Blood Gas Notified Time 09/24/2016 12:36:36 PM Medications Medications Current Medications Aspirin (Halfprin) 81 mg DAILY PO Last administered on 09/24/16 08:29; Admin Dose 81 MG; Start 09/21/16 at 09:00 Clonidine (Catapres) 0.1 mg DAILY PRN PO HTN; Start 09/21/16 at 01:30 Diphenhydramine HCl (Benadryl) 25 mg BID PRN PO ITCHING; Start 09/21/16 at 01:30 Escitalopram Oxalate (Lexapro) 10 mg DAILY PO Last administered on 09/24/16 08 :29; Admin Dose 10 MG; Start 09/21/16 at 09:00 Gabapentin (Neurontin) 300 mg BID PO Last administered on 09/24/16 08:28; Admin Dose 300 MG; Start 09/21/16 at 09:00 Linagliptin (Tradjenta) 5 mg DAILY PO Last administered on 09/24/16 08:28; Admin Dose 5 MG; Start 09/21/16 at 09:00 Losartan Potassium (Cozaar) 100 mg BID PO Last administered on 09/24/16 08:28 ; Admin Dose 100 MG; Start 09/21/16 at 09:00 Metoclopramide HCl (Reglan) 10 mg TID PRN PO NAUSEA AND/OR VOMITING; Start 09/21 at 01:30 Potassium Chloride (Micro-K) 8 meq DAILY PO Last administered on 09/24/16 08: 27; Admin Dose 8 MEQ; Start 09/21/16 at 09:00 Salmeterol Xinafoate/ Fluticasone (Advair 250/50 Diskus) 1 inh BID INH Last administered on 09/24/16 08:27; Admin Dose 1 INH; Start 09/21/16 at 09:00 Tiotropium [place] 1 inh 1 inh DAILY INH Last administered on 09/24/16 08:29; Admin Dose 1 INH; Start 09/21/16 at 09:00 Azithromycin (Zithromax 500mg/ NS (Pmx)) 250 ml @ 250 mls/hr Q24H IVPB Last administered on 09/24/16 02:52; Admin Dose 250 MLS/HR; Start 09/21/16 at 03:00 Diagnostic Test (Pha) (Accu-Chek) 1 ea 02 XX Last administered on 09/24/16 01: 43; Admin Dose 1 EA; Start 09/21/16 at 02:00 Diagnostic Test (Pha) (Accu-Chek) 1 ea 02 XX Last administered on 09/24/16 01: 48; Admin Dose 1 EA; Start 09/22/16 at 02:00 Acetaminophen/ Hydrocodone Bitart ([place] (10/325)) 1 tab Q8H PRN PO PAIN Last administered on 09/24/16 12:43; Admin Dose 1 TAB; Start 09/21/16 at 02:25 Acetaminophen (Tylenol Tab) 650 mg Q6H PRN PO PAIN AND OR ELEVATED TEMP Last administered on 09/23/16 21:25; Admin Dose 650 MG; Start 09/22/16 at 06:30 Polyethylene Glycol (Miralax) 17 gm BID PO Last administered on 09/23/16 21:15 ; Admin Dose 17 GM; Start 09/23/16 at 10:30 Docusate Sodium (Colace) 250 mg BID PO Last administered on 09/23/16 21:17; Admin Dose 250 MG; Start 09/23/16 at 10:30 Flecainide Acetate (Tambocor) 150 mg BID PO ; Start 09/24/16 at 11:00 SYEDA ROWLAND MD, [facility] Sep 24, 2016 15:19
[2016-09-24] MEDS: ACETAMINOPHEN 325 MG TAB PO PRN (15:45)
[2016-09-25] VITALS (16 sets, daily range): BP systolic 103–192; BP diastolic 55–90; PULSE 67–81; RESP 15–20
[2016-09-25] MEDS: ACETAMINOPHEN 325 MG TAB PO PRN ×3 (01:36→21:50)
[2016-09-25] MEDS: ACCU-CHEK XX SCH ×2 (01:39→02:19)
[2016-09-25] MEDS: AZITHROMYCIN 500MG/NS (PMX) 250 ML IVPB SCH (02:44)
[2016-09-25] MEDS: HYDROCODONE/APAP (10/325) TAB PO PRN ×5 (05:58→20:12)
[2016-09-25] MEDS: FUROSEMIDE 40 MG TAB PO SCH ×2 (05:58→19:35)
[2016-09-25] MEDS: ALBUTEROL/IPRATROPIUM (NEB) 3 ML AMP HHN SCH ×2 (07:51→15:44)
[2016-09-25] MEDS: IPRATROPIUM (NEB) 0.5 MG/2.5 ML AMP HHN SCH ×2 (07:59→15:44)
[2016-09-25] MEDS: INSULIN ASPART [NOVOLOG] 3 ML PEN SC SCH ×3 (08:00→21:00)
[2016-09-25] MEDS: POTASSIUM CHLORIDE (SR) 8 MEQ CAP PO SCH (08:42)
[2016-09-25] MEDS: ESCITALOPRAM 10 MG TAB PO SCH (08:42)
[2016-09-25] MEDS: FLECAINIDE 100 MG TAB PO SCH ×2 (08:42→21:50)
[2016-09-25] MEDS: ASPIRIN (EC) 81 MG TAB PO SCH (08:43)
[2016-09-25] MEDS: DOCUSATE SODIUM 250 MG CAP PO SCH ×2 (08:43→21:51)
[2016-09-25] MEDS: GABAPENTIN 300 MG CAP PO SCH ×2 (08:43→20:12)
[2016-09-25] MEDS: LOSARTAN 50 MG TAB PO SCH ×2 (08:43→19:31)
[2016-09-25] MEDS: LINAGLIPTIN 5 MG TABLET PO SCH (08:43)
[2016-09-25] MEDS: metFORMIN 500 MG TAB PO SCH ×2 (08:43→21:51)
[2016-09-25] MEDS: POLYETHYLENE GLYCOL 17 GM PACKET PO SCH ×2 (08:44→21:00)
[2016-09-25] MEDS: SALMETEROL/FLUTICASONE 250/50 INHA INH SCH ×2 (09:52→21:00)
[2016-09-25] MEDS: TIOTROPIUM 18 MCG CAPSULE INHA DEV INH SCH (09:53)
--- NOTE | 2016-09-25 10:02 | PN ---
Date/Time of Note Date/Time of Note DATE: 09/25/16 TIME: 09:58 Assessment/Plan VTE Prophylaxis VTE Prophylaxis Intervention: ambulation VTE Contraindication Reason: peripheral vascular disease, refusal of treatment by patient Lines/Catheters IV Catheter Type (from Nrsg): [place] line still needed: No Urinary Cath still in place: Yes Reason Cath still needed: urinary retention Assessment/Plan Assessment/Plan 1. Congestive heart failure exacerbation with pulmonary edema.Improved. 2. Morbid obesity; Obesity hypopnea syndrome,hypercarbia with [id number] 3. Hallucinations, confusion, fear on and off 4. Hypertension, now normotensive. 5. History of having palpitations-now bradycardic; lowest rate 45- now 63bpm. 6. History of having bronchial asthma, now stable. 7. Wound of the postsurgical scar, right-sided abdomen, healed. 8. Status post cholecystectomy. 9. Postmenstrual syndrome. 10. Anxiety. 11. Claustrophobia. 12. Dyslipidemia. 13. Diabetes type 2. 14. History of having carbon dioxide retention. 15. Anemia of chronic disease with recent loss. 16. History of chronic kidney disease, improved. 17. History of having low iron and low magnesium levels-now active problem. 18. Pain syndrome. 19. Major depression. 20. Altered level of consciousness. 21. Diverticulitis. 22. Left-sided chest pain. 23.carbon dioxide narcosis (Hx of) 24.Trophic changes of both legs with change of a color. 25.Pilling of the skin of nailbeds of both hands with deformities and trace of blood and swelling.26. 26.13 years bedridden 27.Decubitus of t he left gluteal area with mild redness of the calcaneal skin 28.Severe deconditioning 29.Daytime sleepiness 30.Severe krupa of knees, hips ans ankle joints 31.Calcaneal pain. 32.Umbilical nonreducible hernia 4-5cm in diameter.Postsurgical. 33.Chronic norco,percocet, and other controlled substance user. 34.Bradycardia 35.Not aware of her insurance status and is unable to understand the talk about HMO.Constantly is talking about "my medicare". Can't accept the idea that her health insurance status is changed and I can't fallow her anymore due to of insurance policy. Refused to be seen by other doctor. Explained the plan of d/c in one day after knee injection(called dr. Weinberg) and nl vitals in am. Subjective 24 Hr Interval Summary Free Text/Dictation sob confusion on and off.Failed d/cdue to of incompleteness of the order.Called one more time now. Will come in one hour. Subjective hx not possible: pt critical Constitutional: diaphoresis, disoriented, improved, No chills, No febrile, No no complaints, No other, No poor po, No requiring IVF, No requiring O2 Eyes: No discharge, No no complaints, No other, No pain, No redness, No visual change ENT: No bleeding, No congestion, No discharge, No dysphagia, No no complaints, No other, No pain, No sore throat Cardiovascular: chest pain, edema, lightheadedness, orthopenea, palpitations, No no complaints, No other, No paroxysmal nocturnal dyspnea Gastrointestinal: constipation, decreased appetite, pain, No blood, No diarrhea, No flatus, No nausea, No no complaints, No other, No passing stool, No vomiting Genitourinary: dysuria, flank pain, No bleeding, No discharge, No hematuria, No no complaints, No other Musculoskeletal: back pain, bone/joint pain, neck pain, restricted range of motion, No no complaints, No other, No swelling Skin: bruising, erythema, pruritis, No laceration, No no complaints, No other, No rash, No skin lesions Neurologic: confusion, dizziness, headache, No focal-weakness, No no complaints, No other, No seizure, No syncope Psychological: anxiety, confusion, depression, other (hallucinaations.) Exam/Review of Systems Vital Signs Vitals Vital Signs Date Time Temp Pulse Resp B/P Pulse Ox O2 Delivery O2 Flow Rate FiO2 09/25/16 08:11 67 09/25/16 08:02 97.7 17 113/55 95 09/25/16 08:00 Nasal Cannula 2.0 09/25/16 00:18 40 Intake and Output 09/24/16 09/24/16 09/25/16 15:00 23:00 07:00 Intake Total 750 ml Output Total 1000 ml Balance -250 ml Exam Constitutional: alert, non-verbal, well developed, No distress, No frail, No obese, No oriented, No other Psych: anxiety, confusion, depression, No nl mood/affect, No no complaints, No other, No suicidal Head: atraumatic, No hematomas, No lacerations, No normocephalic, No other Eyes: EOMI, No PERRL, No fundi, disc, No icteric, No nl conjunctiva, No nl lids, No nl sclera, No other ENMT: No intubated, No mucosa pink and moist, No nl external ears & nose, No nl lips & teeth, No nl nasal mucosa & septum, No other, No tympanic membranes Neck: bruits, jvd, nuchal rigidity, No masses, No non-tender, No other, No supple, No thyromegaly Respiratory: congested cough, intercostal retraction, No clear to auscultation, No crackles/rales, No diminished breath sounds, No labored breathing, No normal air movement, No other, No respirations, No tactile fremitus, No wheezing Cardiovascular: bruits, edema, irregular rhythm, systolic murmur Gastrointestinal: bowel sounds, distended, No ascites, No firm, No hepatomegaly, No mass, No nl liver, spleen, No non- tender, No other, No rebound or guarding, No soft, No splenomegaly, No surgical scars, No tender Musculoskeletal: joint tenderness, muscle tone, muscle weakness, No nl extremities to inspection, No nl gait and stance, No other, No range of motion, No spine non-tender, No swelling Extremities: edema, tenderness, No calf tenderness, No clubbing, No cyanosis, No normal pulses, No other, No palpable cord, No pitting pedal edema Neurological: confused, numbness Skin: ecchymosis, laceration, rash or lesions, No diaphoresis, No nl turgor, No other, No puncture Lymph: No enlarged, No nl lymph nodes, No nontender, No other Results Result Diagram: 09/22/16 0716 09/24/16 0725 Results 24 hrs Laboratory Tests Test 09/24/16 11:34 09/24/16 17:13 09/24/16 20:34 09/25/16 01:38 Bedside Glucose 128 128 158 119 Test 09/25/16 08:16 Bedside Glucose 119 Medications Medications Current Medications Aspirin (Halfprin) 81 mg DAILY PO Last administered on 09/25/16t 08:43; Admin Dose 81 MG; Start 09/21/16 at 09:00 Clonidine (Catapres) 0.1 mg DAILY PRN PO HTN; Start 09/21/16 at 01:30 Diphenhydramine HCl (Benadryl) 25 mg BID PRN PO ITCHING; Start 09/21/16 at 01:30 Escitalopram Oxalate (Lexapro) 10 mg DAILY PO Last administered on 09/25/16 08 :42; Admin Dose 10 MG; Start 09/21/16 at 09:00 Gabapentin (Neurontin) 300 mg BID PO Last administered on 09/25/16 08:43; Admin Dose 300 MG; Start 09/21/16 at 09:00 Linagliptin (Tradjenta) 5 mg DAILY PO Last administered on 09/25/16 08:43; Admin Dose 5 MG; Start 09/21/16 at 09:00 Losartan Potassium (Cozaar) 100 mg BID PO Last administered on 09/25/16 08:43 ; Admin Dose 100 MG; Start 09/21/16 at 09:00 Metoclopramide HCl (Reglan) 10 mg TID PRN PO NAUSEA AND/OR VOMITING; Start 09/21 at 01:30 Potassium Chloride (Micro-K) 8 meq DAILY PO Last administered on 09/25/16 08: 42; Admin Dose 8 MEQ; Start 09/21/16 at 09:00 Salmeterol Xinafoate/ Fluticasone (Advair 250/50 Diskus) 1 inh BID INH Last administered on 09/25/16 09:52; Admin Dose 1 INH; Start 09/21/16 at 09:00 Tiotropium [place] 1 inh 1 inh DAILY INH Last administered on 09/25/16 09:53; Admin Dose 1 INH; Start 09/21/16 at 09:00 Azithromycin (Zithromax 500mg/ NS (Pmx)) 250 ml @ 250 mls/hr Q24H IVPB Last administered on 09/25/16 02:44; Admin Dose 250 MLS/HR; Start 09/21/16 at 03:00 Diagnostic Test (Pha) (Accu-Chek) 1 ea 02 XX Last administered on 09/25/16 01: 39; Admin Dose 1 EA; Start 09/21/16 at 02:00 Diagnostic Test (Pha) (Accu-Chek) 1 ea 02 XX Last administered on 09/25/16 02: 19; Admin Dose 1 EA; Start 09/22/16 at 02:00 Acetaminophen/ Hydrocodone Bitart ([place] (10)) 1 tab Q8H PRN PO PAIN Last administered on 09/25/16 07:18; Admin Dose 1 TAB; Start 09/21/16 at 02:25 Acetaminophen (Tylenol Tab) 650 mg Q6H PRN PO PAIN AND OR ELEVATED TEMP Last administered on 09/25/16 08:43; Admin Dose 650 MG; Start 09/22/16 at 06:30 Polyethylene Glycol (Miralax) 17 gm BID PO Last administered on 09/25/16 08:44 ; Admin Dose 17 GM; Start 09/23/16 at 10:30 Docusate Sodium (Colace) 250 mg BID PO Last administered on 09/25/16 08:43; Admin Dose 250 MG; Start 09/23/16 at 10:30 Flecainide Acetate (Tambocor) 150 mg BID PO Last administered on 09/25/16 08: 42; Admin Dose 150 MG; Start 09/24/16 at 11:00 STONE HERNANDEZ MD Sep 25, 2016 10:02
[2016-09-25] MEDS ORDERED: BETAMET NA PHOS/AC(6 MG/ML) 5ML INJ INJ ONE (10:30)
[2016-09-25] MEDS ORDERED: BUPIVACAINE 0.25%/EPI (SDV) 30 ML INJ INJ ONE (10:30)
[2016-09-25 10:57] LABS: ALBUMIN 3.8 g/dl (3.3-4.9); ALBUMIN/GLOBULIN RATIO 1.11; BILIRUBIN,INDIRECT 0.3 mg/dl (0-1.1); BILIRUBIN,TOTAL 0.3 mg/dl (0.2-1.3); CALCIUM 9.1 mg/dl (8.4-10.2); CREATININE 0.81 mg/dl (0.44-1.00); MAGNESIUM 1.7 mg/dl (1.7-2.5); POTASSIUM 3.6 mmol/L (3.5-5.1); TOTAL PROTEIN 7.2 g/dl (6.1-8.1)
--- NOTE | 2016-09-25 12:55 | CONS ---
Date/Time of Note Date/Time of Note DATE: 09/25/16 TIME: 12:54 Consult Date/Type/Reason Admit Date/Time Sep 20, 2016 at 23:01 Initial Consult Date 09/24/16 Type of Consultation: Pulmonary Subjective Comfortable this morning. Objective Vital Signs Date Time Temp Pulse Resp B/P Pulse Ox O2 Delivery O2 Flow Rate FiO2 09/25/16 12:17 72 09/25/16 12:05 98.4 20 108/55 96 09/25/16 08:00 Nasal Cannula 2.0 09/25/16 00:18 40 Intake and Output 09/24/16 09/24/16 09/25/16 15:00 23:00 07:00 Intake Total 750 ml Output Total 1000 ml Balance -250 ml Exam GENERAL: Morbidly obese [place] lady acute distress VITAL SIGNS: per chart NECK: Supple. No JVD or lymphadenopathy. CARDIAC EXAM: S1, S2. No added sounds or murmurs. CHEST: clear bilaterally, No added sounds, rales or wheezes ABDOMEN: Soft, nontender. No guarding or rebound. EXTREMITIES: No cyanosis, clubbing edema +2 NEUROLOGIC: Generalized weakness. Results/Medications Result Diagram: 09/22/16 0716 09/25/16 1022 Results 24 hrs Laboratory Tests Test 09/24/16 17:13 09/24/16 20:34 09/25/16 01:38 09/25/16 08:16 Bedside Glucose 128 158 119 119 Test 09/25/16 10:22 09/25/16 11:47 Sodium Level 138 Potassium Level 3.6 Chloride Level 92 L Carbon Dioxide Level 35 H Anion Gap 15 Blood Urea Nitrogen 17 Creatinine 0.81 Glucose Level 133 # Calcium Level 9.1 Magnesium Level 1.7 Total Bilirubin 0.3 Direct Bilirubin 0.00 Indirect Bilirubin 0.3 Aspartate Amino Transf (AST/SGOT) 17 Alanine Aminotransferase (ALT/SGPT) 28 Alkaline Phosphatase 92 Total Protein 7.2 Albumin 3.8 Globulin 3.40 H Albumin/Globulin Ratio 1.11 Bedside Glucose 112 Medications Current Medications Aspirin (Halfprin) 81 mg DAILY PO Last administered on 09/25/16t 08:43; Admin Dose 81 MG; Start 09/21/16 at 09:00 Clonidine (Catapres) 0.1 mg DAILY PRN PO HTN; Start 09/21/16 at 01:30 Diphenhydramine HCl (Benadryl) 25 mg BID PRN PO ITCHING; Start 09/21/16 at 01:30 Escitalopram Oxalate (Lexapro) 10 mg DAILY PO Last administered on 09/25/16 08 :42; Admin Dose 10 MG; Start 09/21/16 at 09:00 Gabapentin (Neurontin) 300 mg BID PO Last administered on 09/25/16 08:43; Admin Dose 300 MG; Start 09/21/16 at 09:00 Linagliptin (Tradjenta) 5 mg DAILY PO Last administered on 09/25/16 08:43; Admin Dose 5 MG; Start 09/21/16 at 09:00 Losartan Potassium (Cozaar) 100 mg BID PO Last administered on 09/25/16 08:43 ; Admin Dose 100 MG; Start 09/21/16 at 09:00 Metoclopramide HCl (Reglan) 10 mg TID PRN PO NAUSEA AND/OR VOMITING; Start 09/21 at 01:30 Potassium Chloride (Micro-K) 8 meq DAILY PO Last administered on 09/25/16 08: 42; Admin Dose 8 MEQ; Start 09/21/16 at 09:00 Salmeterol Xinafoate/ Fluticasone (Advair 250/50 Diskus) 1 inh BID INH Last administered on 09/25/16 09:52; Admin Dose 1 INH; Start 09/21/16 at 09:00 Tiotropium [place] 1 inh 1 inh DAILY INH Last administered on 09/25/16 09:53; Admin Dose 1 INH; Start 09/21/16 at 09:00 Azithromycin (Zithromax 500mg/ NS (Pmx)) 250 ml @ 250 mls/hr Q24H IVPB Last administered on 09/25/16 02:44; Admin Dose 250 MLS/HR; Start 09/21/16 at 03:00 Diagnostic Test (Pha) (Accu-Chek) 1 ea 02 XX Last administered on 09/25/16 01: 39; Admin Dose 1 EA; Start 09/21/16 at 02:00 Diagnostic Test (Pha) (Accu-Chek) 1 ea 02 XX Last administered on 09/25/16 02: 19; Admin Dose 1 EA; Start 09/22/16 at 02:00 Acetaminophen/ Hydrocodone Bitart ([place] (10/325)) 1 tab Q8H PRN PO PAIN Last administered on 09/25/16 12:51; Admin Dose 1 TAB; Start 09/21/16 at 02:25 Acetaminophen (Tylenol Tab) 650 mg Q6H PRN PO PAIN AND OR ELEVATED TEMP Last administered on 09/25/16 08:43; Admin Dose 650 MG; Start 09/22/16 at 06:30 Polyethylene Glycol (Miralax) 17 gm BID PO Last administered on 09/25/16 08:44 ; Admin Dose 17 GM; Start 09/23/16 at 10:30 Docusate Sodium (Colace) 250 mg BID PO Last administered on 09/25/16 08:43; Admin Dose 250 MG; Start 09/23/16 at 10:30 Flecainide Acetate (Tambocor) 150 mg BID PO Last administered on 09/25/16 08: 42; Admin Dose 150 MG; Start 09/24/16 at 11:00 Assessment/Plan Chief Complaint/Hosp Course Assessment 1. Chest pain rule out ACS 2. Morbid obesity 3. Likely underlying obstructive sleep apnea 4. Chronic bronchitis compensated chronic respiratory acidosis 5. Chronic pain 6. Diabetes mellitus Plan 1. Encouraged noninvasive positive pressure ventilation at night 2. Consider home sleep study 3. Supplemental O2 as needed 4. Bronchodilators 5. Cardiac recommendations 6. Agree with continuing Lasix twice daily Disposition Follow-up with me in the office for workup of sleep apnea. Problems: SYEDA ROWLAND MD, [facility] Sep 25, 2016 12:54
--- NOTE | 2016-09-25 20:10 | CONS ---
DATE OF ADMISSION: 09/20/2016 DATE OF CONSULTATION: 09/25/2016 HISTORY OF PRESENT ILLNESS: The patient is a 76-year-old female, who was admitted on September when she came to the emergency room complaining of chest pain along with the shortness of breath. She was admitted under the diagnostic impression of congestive heart failure for further evaluation and treatment. She is known to me from her previous clinic visit. She is extremely obese and she has advanced degenerative osteoarthritis, however, because of her overall condition including obesity and less than ideal medical condition, surgical treatment was not advised and she has been treated with the steroid injection of both in the interval hours. At this time she is again complaining of severe pain involving both knees, which makes ambulation impossible. It was rather difficult to examine her knee because of the obesity, however, there were no signs of obvious effusion or pyogenic process. Range of motion of both knees was considerably limited because of the obesity and pain. There was tenderness along the joint line bilaterally. X-rays of both knees revealed a presence of advanced degenerative osteoarthritis involving both knees. DIAGNOSTIC IMPRESSION: 1. Degenerative osteoarthritis of both knees, advanced. 2. Extreme obesity. TREATMENT RECOMMENDATIONS: Repeat steroid injection of both knees, and this was done. Further orthopedic surgical evaluation and follow-up will be on a p.r.n. basis. Dictated By: In Kristy Weinberg MD /[email or web address] /Document#: [id number]
[2016-09-25] MEDS ORDERED: LORAZEPAM 0.5 MG TAB PO ONE (20:30)
[2016-09-25] MEDS ORDERED: ACETAMINOPHEN 325 MG TAB PO PRN (22:00)
[2016-09-26] VITALS (10 sets, daily range): BP systolic 104–156; BP diastolic 54–75; PULSE 66–91; RESP 18–20
[2016-09-26] MEDS ORDERED: ONDANSETRON 4 MG INJ IV PRN (01:30)
[2016-09-26] MEDS: ACCU-CHEK XX SCH ×2 (02:00)
[2016-09-26] MEDS ORDERED: ONDANSETRON 4 MG INJ ONE (05:43)
[2016-09-26] MEDS: FUROSEMIDE 40 MG TAB PO SCH (05:54)
[2016-09-26] MEDS: HYDROCODONE/APAP (10/325) TAB PO PRN (05:55)
[2016-09-26] MEDS: ALBUTEROL/IPRATROPIUM (NEB) 3 ML AMP HHN SCH (07:17)
[2016-09-26] MEDS: metFORMIN 500 MG TAB PO SCH (07:57)
[2016-09-26] MEDS: INSULIN ASPART [NOVOLOG] 3 ML PEN SC SCH ×2 (08:07→12:00)
[2016-09-26] MEDS: POLYETHYLENE GLYCOL 17 GM PACKET PO SCH (08:44)
[2016-09-26] MEDS: FLECAINIDE 100 MG TAB PO SCH (08:45)
[2016-09-26] MEDS: LINAGLIPTIN 5 MG TABLET PO SCH (08:46)
[2016-09-26] MEDS: DOCUSATE SODIUM 250 MG CAP PO SCH (08:46)
[2016-09-26] MEDS: ESCITALOPRAM 10 MG TAB PO SCH (08:46)
[2016-09-26] MEDS: GABAPENTIN 300 MG CAP PO SCH (08:47)
[2016-09-26] MEDS: LOSARTAN 50 MG TAB PO SCH (08:47)
[2016-09-26] MEDS: ASPIRIN (EC) 81 MG TAB PO SCH (08:47)
[2016-09-26] MEDS: POTASSIUM CHLORIDE (SR) 8 MEQ CAP PO SCH (10:30)
[2016-09-26] MEDS: TIOTROPIUM 18 MCG CAPSULE INHA DEV INH SCH (10:31)
[2016-09-26] MEDS: SALMETEROL/FLUTICASONE 250/50 INHA INH SCH (10:31)
--- NOTE | 2016-09-26 13:43 | PN ---
Date/Time of Note Date/Time of Note DATE: 09/26/16 TIME: 13:36 Assessment/Plan VTE Prophylaxis VTE Prophylaxis Intervention: ambulation, anti-embolic stocking VTE Contraindication Reason: peripheral vascular disease Lines/Catheters IV Catheter Type (from Nrsg): Peripheral IV Central line still needed: No Urinary Cath still in place: Yes Reason Cath still needed: urinary retention Assessment/Plan Assessment/Plan 1. Congestive heart failure exacerbation with pulmonary edema.Improved. 2. Morbid obesity; Obesity hypopnea syndrome,hypercarbia with [id number] 3. Hallucinations, confusion, fear on and off 4. Hypertension, now normotensive. 5. History of having palpitations-now bradycardic; lowest rate 45- now 63bpm. 6. History of having bronchial asthma, now stable. 7. Wound of the postsurgical scar, right-sided abdomen, healed. 8. Status post cholecystectomy. 9. Postmenstrual syndrome. 10. Anxiety. 11. Claustrophobia. 12. Dyslipidemia. 13. Diabetes type 2. 14. History of having carbon dioxide retention. 15. Anemia of chronic disease with recent loss. 16. History of chronic kidney disease, improved. 17. History of having low iron and low magnesium levels-now active problem. 18. Pain syndrome. 19. Major depression. 20. Altered level of consciousness. 21. Diverticulitis. 22. Left-sided chest pain. 23.carbon dioxide narcosis (Hx of) 24.Trophic changes of both legs with change of a color. 25.Pilling of the skin of nailbeds of both hands with deformities and trace of blood and swelling.26. 26.13 years bedridden 27.Decubitus of t he left gluteal area with mild redness of the calcaneal skin 28.Severe deconditioning 29.Daytime sleepiness 30.Severe krpua of knees, hips ans ankle joints 31.Calcaneal pain. 32.Umbilical nonreducible hernia 4-5cm in diameter.Postsurgical. 33.Chronic norco,percocet, and other controlled substance user. 34.Bradycardia 35.Not aware of her insurance status and is unable to understand the talk about HMO.Constantly is talking about "my medicare". Can't accept the idea that her health insurance status is changed and I can't fallow her anymore due to of insurance policy. Refused to be seen by other doctor. Explained the plan of d/c in one day after knee injection(called dr. Weinberg) and nl vitals in am. Cont'd Hospitalization Reason: d/c planning atg 4:pm according to RN. Subjective 24 Hr Interval Summary Free Text/Dictation I don't know what happened whith me yesterday. I don't remember anything. I was seeing people in the evening. They were treatening me. Now I am ok. Constitutional: disoriented, improved, poor po, requiring O2, No chills, No diaphoresis, No febrile, No no complaints, No other, No requiring IVF Eyes: No discharge, No no complaints, No other, No pain, No redness, No visual change ENT: congestion, No bleeding, No discharge, No dysphagia, No no complaints, No other, No pain , No sore throat Respiratory: cough, shortness of breath, No no complaints, No other, No pain, No pleuritic pain, No sputum, No wheezing Cardiovascular: chest pain, orthopenea, paroxysmal nocturnal dyspnea, No edema, No lightheadedness, No no complaints, No other, No palpitations Gastrointestinal: constipation, decreased appetite, pain, No blood, No diarrhea, No flatus, No nausea, No no complaints, No other, No passing stool, No vomiting Genitourinary: flank pain, No bleeding, No discharge, No dysuria, No hematuria, No no complaints, No other Musculoskeletal: back pain, bone/joint pain Exam/Review of Systems Vital Signs Vitals Vital Signs Date Time Temp Pulse Resp B/P Pulse Ox O2 Delivery O2 Flow Rate FiO2 09/26/16 12:15 91 09/26/16 11:50 98.5 18 104/54 94 09/26/16 08:30 Nasal Cannula 2.0 09/25/16 00:18 40 Intake and Output 09/25/16 09/25/16 09/26/16 15:00 23:00 07:00 Intake Total 320 ml Output Total 1650 ml Balance -1330 ml Exam Constitutional: alert, distress, oriented, well developed, No frail, No non-verbal, No obese, No other Psych: anxiety, confusion, depression, No nl mood/affect, No no complaints, No other, No suicidal Head: atraumatic, No hematomas, No lacerations, No normocephalic, No other Eyes: EOMI, PERRL, nl lids, No fundi, disc, No icteric, No nl conjunctiva, No nl sclera, No other ENMT: nl nasal mucosa & septum, tympanic membranes, No intubated, No mucosa pink and moist, No nl external ears & nose, No nl lips & teeth, No other Neck: bruits, jvd, nuchal rigidity, No masses, No non-tender, No other, No supple, No thyromegaly Respiratory: congested cough, crackles/rales, No clear to auscultation, No diminished breath sounds, No intercostal retraction, No labored breathing, No normal air movement, No other, No respirations, No tactile fremitus, No wheezing Cardiovascular: bruits, edema, jugular venous distention (JVD), systolic murmur Gastrointestinal: bowel sounds, distended, soft, No ascites, No firm, No hepatomegaly, No mass, No nl liver, spleen, No non- tender, No other, No rebound or guarding, No splenomegaly, No surgical scars, No tender Musculoskeletal: joint tenderness, muscle weakness, range of motion, spine non- tender Skin: diaphoresis Results Result Diagram: 09/22/16 0716 09/25/16 1022 Results 24 hrs Laboratory Tests Test 09/25/16 21:32 09/26/16 07:47 09/26/16 12:25 Bedside Glucose 175 149 136 Medications Medications Current Medications Aspirin (Halfprin) 81 mg DAILY PO Last administered on 09/26/16 08:47; Admin Dose 81 MG; Start 09/21/16 at 09:00 Clonidine (Catapres) 0.1 mg DAILY PRN PO HTN Last administered on 09/25/16 20: 04; Admin Dose 0.1 MG; Start 09/21/16 at 01:30 Diphenhydramine HCl (Benadryl) 25 mg BID PRN PO ITCHING; Start 09/21/16 at 01:30 Escitalopram Oxalate (Lexapro) 10 mg DAILY PO Last administered on 09/26/16 08 :46; Admin Dose 10 MG; Start 09/21/16 at 09:00 Gabapentin (Neurontin) 300 mg BID PO Last administered on 09/26/16 08:47; Admin Dose 300 MG; Start 09/21/16 at 09:00 Linagliptin (Tradjenta) 5 mg DAILY PO Last administered on 09/26/16 08:46; Admin Dose 5 MG; Start 09/21/16 at 09:00 Losartan Potassium (Cozaar) 100 mg BID PO Last administered on 09/26/16 08:47 ; Admin Dose 100 MG; Start 09/21/16 at 09:00 Metoclopramide HCl (Reglan) 10 mg TID PRN PO NAUSEA AND/OR VOMITING Last administered on 09/25/16 22:03; Admin Dose 10 MG; Start 09/21/16 at 01:30 Potassium Chloride (Micro-K) 8 meq DAILY PO Last administered on 09/26/16 10: 30; Admin Dose 8 MEQ; Start 09/21/16 at 09:00 Salmeterol Xinafoate/ Fluticasone (Advair 250/50 Diskus) 1 inh BID INH Last administered on 09/26/16 10:31; Admin Dose 1 INH; Start 09/21/16 at 09:00 Tiotropium [place] (Spiriva) 1 inh DAILY INH Last administered on 09/26/16 10: 31; Admin Dose 1 INH; Start 09/21/16 at 09:00 Diagnostic Test (Pha) (Accu-Chek) 1 ea 02 XX Last administered on 09/25/16 01: 39; Admin Dose 1 EA; Start 09/21/16 at 02:00 Diagnostic Test (Pha) (Accu-Chek) 1 ea 02 XX Last administered on 09/25/16 02: 19; Admin Dose 1 EA; Start 09/22/16 at 02:00 Acetaminophen/ Hydrocodone Bitart ([place] (10/325)) 1 tab Q8H PRN PO PAIN Last administered on 09/26/16 05:55; Admin Dose 1 TAB; Start 09/21/16 at 02:25 Polyethylene Glycol (Miralax) 17 gm BID PO Last administered on 09/26/16 08:44 ; Admin Dose 17 GM; Start 09/23/16 at 10:30 Docusate Sodium (Colace) 250 mg BID PO Last administered on 09/26/16 08:46; Admin Dose 250 MG; Start 09/23/16 at 10:30 Flecainide Acetate (Tambocor) 150 mg BID PO Last administered on 09/26/16 08: 45; Admin Dose 150 MG; Start 09/24/16 at 11:00 Acetaminophen (Tylenol Tab) 650 mg Q6H PRN PO PAIN AND OR ELEVATED TEMP Last administered on 09/26/16 10:30; Admin Dose 650 MG; Start 09/25/16 at 22:00 Ondansetron HCl (Zofran Inj) 4 mg Q6H PRN IV NAUSEA AND/OR VOMITING Last administered on 09/26/16 01:45; Admin Dose 4 MG; Start 09/26/16 at 01:30 STONE HERNANDEZ MD Sep 26, 2016 13:43
--- NOTE | 2016-09-26 14:43 | CONS ---
Date/Time of Note Date/Time of Note DATE: 09/26/16 TIME: 14:42 Consult Date/Type/Reason Admit Date/Time Sep 20, 2016 at 23:01 Initial Consult Date 09/24/16 Type of Consultation: Pulmonary Subjective Orthopedic evaluation and recommendations noted. Patient remains relatively comfortable this morning. Objective Vital Signs Date Time Temp Pulse Resp B/P Pulse Ox O2 Delivery O2 Flow Rate FiO2 09/26/16 12:15 91 09/26/16 11:50 98.5 18 104/54 94 09/26/16 08:30 Nasal Cannula 2.0 09/25/16 00:18 40 Intake and Output 09/25/16 09/25/16 09/26/16 15:00 23:00 07:00 Intake Total 320 ml Output Total 1650 ml Balance -1330 ml Exam GENERAL: Morbidly obese [place]ard lady acute distress VITAL SIGNS: per chart NECK: Supple. No JVD or lymphadenopathy. CARDIAC EXAM: S1, S2. No added sounds or murmurs. CHEST: clear bilaterally, No added sounds, rales or wheezes ABDOMEN: Soft, nontender. No guarding or rebound. EXTREMITIES: No cyanosis, clubbing edema +2 NEUROLOGIC: Generalized weakness. Results/Medications Result Diagram: 09/22/16 0716 09/25/16 1022 Results 24 hrs Laboratory Tests Test 09/25/16 21:32 09/26/16 07:47 09/26/16 12:25 Bedside Glucose 175 149 136 Medications Current Medications Aspirin (Halfprin) 81 mg DAILY PO Last administered on 09/26/16 08:47; Admin Dose 81 MG; Start 09/21/16 at 09:00 Clonidine (Catapres) 0.1 mg DAILY PRN PO HTN Last administered on 09/25/16 20: 04; Admin Dose 0.1 MG; Start 09/21/16 at 01:30 Diphenhydramine HCl (Benadryl) 25 mg BID PRN PO ITCHING; Start 09/21/16 at 01:30 Escitalopram Oxalate (Lexapro) 10 mg DAILY PO Last administered on 09/26/16 08 :46; Admin Dose 10 MG; Start 09/21/16 at 09:00 Gabapentin (Neurontin) 300 mg BID PO Last administered on 09/26/16 08:47; Admin Dose 300 MG; Start 09/21/16 at 09:00 Linagliptin (Tradjenta) 5 mg DAILY PO Last administered on 09/26/16 08:46; Admin Dose 5 MG; Start 09/21/16 at 09:00 Losartan Potassium (Cozaar) 100 mg BID PO Last administered on 09/26/16 08:47 ; Admin Dose 100 MG; Start 09/21/16 at 09:00 Metoclopramide HCl (Reglan) 10 mg TID PRN PO NAUSEA AND/OR VOMITING Last administered on 09/25/16 22:03; Admin Dose 10 MG; Start 09/21/16 at 01:30 Potassium Chloride (Micro-K) 8 meq DAILY PO Last administered on 09/26/16 10: 30; Admin Dose 8 MEQ; Start 09/21/16 at 09:00 Salmeterol Xinafoate/ Fluticasone (Advair 250/50 Diskus) 1 inh BID INH Last administered on 09/26/16 10:31; Admin Dose 1 INH; Start 09/21/16 at 09:00 Tiotropium [place] (Spiriva) 1 inh DAILY INH Last administered on 09/26/16 10: 31; Admin Dose 1 INH; Start 09/21/16 at 09:00 Diagnostic Test (Pha) (Accu-Chek) 1 ea 02 XX Last administered on 09/25/16 01: 39; Admin Dose 1 EA; Start 09/21/16 at 02:00 Diagnostic Test (Pha) (Accu-Chek) 1 ea 02 XX Last administered on 09/25/16 02: 19; Admin Dose 1 EA; Start 09/22/16 at 02:00 Acetaminophen/ Hydrocodone Bitart ([place] (10/325)) 1 tab Q8H PRN PO PAIN Last administered on 09/26/16 05:55; Admin Dose 1 TAB; Start 09/21/16 at 02:25 Polyethylene Glycol (Miralax) 17 gm BID PO Last administered on 09/26/16 08:44 ; Admin Dose 17 GM; Start 09/23/16 at 10:30 Docusate Sodium (Colace) 250 mg BID PO Last administered on 09/26/16 08:46; Admin Dose 250 MG; Start 09/23/16 at 10:30 Flecainide Acetate (Tambocor) 150 mg BID PO Last administered on 09/26/16 08: 45; Admin Dose 150 MG; Start 09/24/16 at 11:00 Acetaminophen (Tylenol Tab) 650 mg Q6H PRN PO PAIN AND OR ELEVATED TEMP Last administered on 09/26/16 10:30; Admin Dose 650 MG; Start 09/25/16 at 22:00 Ondansetron HCl (Zofran Inj) 4 mg Q6H PRN IV NAUSEA AND/OR VOMITING Last administered on 09/26/16 01:45; Admin Dose 4 MG; Start 09/26/16 at 01:30 Assessment/Plan Chief Complaint/Hosp Course Assessment 1. Chest pain rule out ACS 2. Morbid obesity 3. Likely underlying obstructive sleep apnea 4. Chronic bronchitis compensated chronic respiratory acidosis 5. Chronic pain 6. Diabetes mellitus Plan 1. Encouraged noninvasive positive pressure ventilation at night 2. Consider home sleep study 3. Supplemental O2 as needed 4. Bronchodilators 5. Cardiac recommendations 6. Agree with continuing Lasix twice daily Disposition Discharge planning okay from pulmonary standpoint. Follow-up with me in the office for workup of sleep apnea. Problems: SYEDA ROWLAND MD, [facility] Sep 26, 2016 14:42
[2016-09-30] MEDS ORDERED: ICOS1CAP PO (00:06)
[2016-09-30] MEDS ORDERED: SOLI5TAB5 PO (00:06)
[2016-09-30] MEDS ORDERED: EZET10TA3 PO (00:06)
[2016-09-30] MEDS ORDERED: OLOP2.5D BOTH EYES (00:06)
[2016-09-30] MEDS ORDERED: POLY255P PO (00:06)
[2016-09-30] MEDS ORDERED: CIPR500T4 PO (00:12)
--- NOTE | 2016-09-30 08:44 | DS ---
Date/Time of Note Date/Time of Note DATE: 09/30/16 TIME: 08:35 Discharge Summary Admission/Discharge Info Admit Date/Time 2016 Discharge Date/Time Discharge Diagnosis 09/27/2016 Patient Condition: Serious Hospital Course CHF,sob improved. Less sleepy. Refuses BIPAP; anemic.Needs sleep study. Refuses. Discussed with grandson. In pain with inability to move. Awaiting the pain reliving results of steroid injections. Needs hospital bed. Will discuss with PMD. Home Meds Active Scripts Ciprofloxacin Hcl* (Ciprofloxacin Hcl*) 500 Mg Tablet, 250 MG PO BID for 7 Days , TAB Prov:SHAWN RUSH MD 09/30/16 Reported Medications Icosapent Ethyl (VASCEPA) 1 Gm Capsule, 1 GM PO DAILY, CAP 09/30/16 Olopatadine* (Pataday*) 0.2% - 2.5 Ml Drops, 1 DROP BOTH EYES DAILY, EA 09/30/16 Solifenacin* (Vesicare*) 5 Mg Tablet, 5 MG PO DAILY, TAB 09/30/16 Ezetimibe* (Zetia*) 10 Mg Tablet, 10 MG PO DAILY, TAB 09/30/16 Polyethylene Glycol 3350 (Polyethylene Glycol 3350) 255 Gm Powder, 255 GM PO 09/30/16 Linagliptin (TRADJENTA) 5 Mg Tablet, 5 MG PO DAILY, TAB 09/20/16 Metoclopramide Hcl* (Metoclopramide Hcl*) 10 Mg Tablet, 10 MG PO TID Y for NAUSEA AND OR VOMITING, TAB 09/20/16 Clonidine Hcl* (Clonidine Hcl*) 0.1 Mg Tab, 0.1 MG PO DAILY Y for HTN, TAB 09/20/16 Furosemide* (Furosemide*) 40 Mg Tablet, 40 MG PO DAILY, TAB 09/20/16 Gabapentin* (Gabapentin*) 300 Mg Capsule, 300 MG PO BID, #60 CAP 09/20/16 Potassium Chloride* (Potassium Chloride*) 8 Meq Capsule.er, 8 MEQ PO DAILY, CAP 09/20/16 Hydrocodone/Acetaminophen ([place] 10-325 Tablet) 1 Each Tablet, 1 EACH PO Q8H, TAB 09/20/16 Flecainide Acetate* (Flecainide Acetate*) 150 Mg Tablet, 150 MG PO BID, TAB 09/20/16 Escitalopram Oxalate* (Lexapro*) 10 Mg Tablet, 10 MG PO DAILY, #30 TAB 09/20/16 Diphenhydramine Hcl* (Benadryl*) 25 Mg Cap, 25 MG PO BID Y for ITCHING, CAP 10/21/15 Losartan Potassium* (Losartan Potassium*) 50 Mg Tablet, 100 MG PO BID, TAB 08/08/15 Tiotropium [place]* (Spiriva*) 18 Mcg Cap.w.dev, 1 INH IH DAILY, EA 07/11/14 Metformin* (Glucophage*) 1,000 Mg Tablet, 1000 MG PO BID, TAB 07/11/14 Salmeterol Xinaf/Fluticasone* (Advair*) 250-50 Diskus Inhaler, 1 INH INH BID, INH 07/11/14 Aspirin (Low Dose Aspirin) 81 Mg Tablet.dr, 81 MG PO DAILY 07/11/14 Primary Care Provider Wan Hernandez MD Time spent on discharge: > 30 minutes Pending Labs Laboratory Tests Test 09/30/16 00:10 Bedside Urine pH (LAB) 7.0 (5.0-8.5) Bedside Urine Protein (LAB) 1+ (NEGATIVE) Bedside Urine Glucose (UA) Negative (NEGATIVE) Bedside Urine Ketones (LAB) Negative (NEGATIVE) Bedside Urine Blood 3+ (NEGATIVE) Bedside Urine Nitrite (LAB) Negative (NEGATIVE) Bedside Urine Leukocyte Esterase (L 1+ (NEGATIVE) WAN HERNANDEZ MD Sep 30, 2016 08:44
== END 2016-09-26 16:02 | disposition home health service (06) | DRG 313 ==
LOC: E/R 20:00 → MS4 23:01 → UNDODISIN 09-25 15:50
PROVIDERS: ADMIT Family Medicine; ATTEND Family Medicine
PROC: 3E0U33Z Introduction of Anti-inflammatory into Joints, Percutaneous Approach (ICD-10-PCS; principal; 2016-09-25)
DX: R07.9 Chest pain, unspecified (principal); L89.151 Pressure ulcer of sacral region, stage 1; L89.321 Pressure ulcer of left buttock, stage 1; I11.0 Hypertensive heart disease with heart failure; E87.2 Acidosis; R00.1 Bradycardia, unspecified; I50.9 Heart failure, unspecified; Z68.43 Body mass index [BMI] 50.0-59.9, adult; E66.2 Morbid (severe) obesity with alveolar hypoventilation; R44.3 Hallucinations, unspecified; E11.9 Type 2 diabetes mellitus without complications; Z79.4 Long term (current) use of insulin; F40.240 Claustrophobia; E78.5 Hyperlipidemia, unspecified; F32.9 Major depressive disorder, single episode, unspecified; Z74.01 Bed confinement status; E55.9 Vitamin D deficiency, unspecified; M17.0 Bilateral primary osteoarthritis of knee; J42 Unspecified chronic bronchitis; G89.29 Other chronic pain; I73.9 Peripheral vascular disease, unspecified; G47.33 Obstructive sleep apnea (adult) (pediatric)
CPT/HCPCS: 36600; 70360; 71010; 73560; 80048; 80053; 81003; 82550; 82553; 82607; 82652; 82803; 82962; 83540; 83735; 83880; 84100; 84443; 84484; 85025; 85610; 85730; 87040; 87086; 93005; 94640; 94644; 94660; 94664; 96374; 96375; 97110; 97162; 97530; J0456; J0702; J1815; J1940; J2270; J2405; J2916; J2930; J3475

== ENCOUNTER 2016-09-29 22:21 | Emergency (ER) | END 2016-09-30 00:42 | disposition home or self-care (01) | DX: N39.0 Urinary tract infection, site not specified (principal); I50.9 Heart failure, unspecified; J45.909 Unspecified asthma, uncomplicated; E11.22 Type 2 diabetes mellitus with diabetic chronic kidney disease; N18.9 Chronic kidney disease, unspecified; E66.01 Morbid (severe) obesity due to excess calories; Z79.84 Long term (current) use of oral hypoglycemic drugs; Z79.82 Long term (current) use of aspirin; Z68.45 Body mass index [BMI] 70 or greater, adult ==

== ENCOUNTER 2016-11-08 16:25 | Inpatient (IN) | END 2016-11-16 15:00 | disposition home or self-care (01) | DRG 698 | DX: T83.511A Infection and inflammatory reaction due to indwelling urethral catheter, initial encounter (principal); G92 Toxic encephalopathy; I50.43 Acute on chronic combined systolic (congestive) and diastolic (congestive) heart failure; G45.9 Transient cerebral ischemic attack, unspecified; G93.1 Anoxic brain damage, not elsewhere classified; I13.0 Hypertensive heart and chronic kidney disease with heart failure and stage 1 through stage 4 chronic kidney disease, or unspecified chronic kidney disease; E66.2 Morbid (severe) obesity with alveolar hypoventilation; Z68.44 Body mass index [BMI] 60.0-69.9, adult; N18.3 Chronic kidney disease, stage 3 (moderate); R07.9 Chest pain, unspecified; E11.22 Type 2 diabetes mellitus with diabetic chronic kidney disease; R00.1 Bradycardia, unspecified; D72.829 Elevated white blood cell count, unspecified; E78.5 Hyperlipidemia, unspecified; R31.9 Hematuria, unspecified; Z79.4 Long term (current) use of insulin; E61.1 Iron deficiency; E61.2 Magnesium deficiency; M17.9 Osteoarthritis of knee, unspecified; M16.10 Unilateral primary osteoarthritis, unspecified hip; M19.079 Primary osteoarthritis, unspecified ankle and foot; F32.9 Major depressive disorder, single episode, unspecified; J44.9 Chronic obstructive pulmonary disease, unspecified; I25.10 Atherosclerotic heart disease of native coronary artery without angina pectoris; E79.0 Hyperuricemia without signs of inflammatory arthritis and tophaceous disease; M54.17 Radiculopathy, lumbosacral region; E11.42 Type 2 diabetes mellitus with diabetic polyneuropathy; B95.2 Enterococcus as the cause of diseases classified elsewhere; G30.9 Alzheimer's disease, unspecified; F02.80 Dementia in other diseases classified elsewhere, unspecified severity, without behavioral disturbance, psychotic disturbance, mood disturbance, and anxiety ==

== ENCOUNTER 2016-11-18 19:00 | Inpatient (IN) | payer MEDICARE, OTHER ==
[~2016-11-18] VITALS: Ht 152.4 cm; Wt 133.0 kg
[~2016-11-18 19:00] MED LIST changes: -AMLO5TAB4 PO; +CLON-379 PO; +ESCI10TA PO; -ESCI5TAB PO; -FLEC100T PO; +FLEC150T PO; +FURO40TA4 PO; +GABA300C16 PO; -HYDR-3498 PO; +HYDR-902 PO; +ICOS1CAP PO; +LINA5TAB PO; -LORA1TAB PO; -LOSA50TA6 PO; -MONT10TA21 PO; -NASO17 NASAL; +OLOP2.5D BOTH EYES; +POLY255P PO; -POTA20TA15 PO; +POTA8CAP PO; +PRED10TA PO; -SITA100T8 PO; +SOLI5TAB5 PO; +SULF1TAB31 PO
[2016-11-18] MEDS ORDERED: morphine 4 MG/ML VIAL IV STA (19:15)
--- NOTE | 2016-11-18 19:50 | RADRPT ---
PROCEDURE: XR Chest. CLINICAL INDICATION: Chest Pain. TECHNIQUE: Single frontal view of the chest was obtained. COMPARISON: 11/08/2016 FINDINGS: The cardiomediastinal silhouette is partially obscured, likely a mild to moderately enlarged.. Pulm onary vasculature appears prominent and indistinct. There is patchy density in the left mid and lowe r lung.. There is moderate aortic calcification.. No signs of pleural fluid or pneumothorax are seen. The osseous structures and soft tissues are unre markable. IMPRESSION: 1. Examination limited by patient body habitus and low lung volumes. 2. Probable mild to moderate cardiomegaly. Pulmonary vascular congestion. 3. Edema or consolidation in the left mid to lower lung. 4. Moderate aortic calcification. RPTAT: HBST .Pardeep Jordan MD, Date Time Electronically viewed and signed by .Pardeep Jordan MD, on 11/18/2016 19:50 .T/
[2016-11-18] MEDS ORDERED: HYDROCODONE/APAP (5/325) TAB PO ONE (20:00)
[2016-11-18 20:01] LABS: ABNORMAL IP MESSAGE 1; BASOPHIL # 0.1 10^3/ul (0.0-0.1); BASOPHILS % 0.4 % (0.0-2.0); EOSINOPHILS # 0.2 10^3/ul (0.0-0.5); EOSINOPHILS % 1.4 % (0.0-7.0); HEMATOCRIT 41.8 % (37.0-47.0); HEMOGLOBIN 13.2 g/dl (12.0-16.0); LYMPHOCYTES # 2.2 10^3/ul (0.8-2.9); LYMPHOCYTES % 18.4 % (15.0-51.0); MEAN CORPUSCULAR HEMOGLOBIN 30.6 pg (29.0-33.0); MEAN CORPUSCULAR HGB CONC 31.6 g/dl (32.0-37.0); MEAN PLATELET VOLUME 13.1 fl (7.4-10.4); MONOCYTE # 0.8 10^3/ul (0.3-0.9); MONOCYTES % 6.6 % (0.0-11.0); NEUTROPHIL # 8.6 10^3/ul (1.6-7.5); NEUTROPHILS % 72.6 % (39.0-77.0); PLATELET COUNT 238 10^3/UL (140-415); RED BLOOD COUNT 4.31 10^6/ul (4.20-5.40); RED CELL DISTRIBUTION WIDTH 13.3 % (11.5-14.5); WHITE BLOOD COUNT 11.8 10^3/ul (4.8-10.8)
[2016-11-18 20:03] LABS: POSITIVE DIFF @See below
[2016-11-18 20:07] LABS: ADD UMIC YES; UR ASCORBIC ACID NEGATIVE (NEGATIVE); UR BILIRUBIN (Dip) NEGATIVE (NEGATIVE); UR BLOOD (Dip) 2+ mg/dL (NEGATIVE); UR BUDDING YEAST MANY /HPF (NONE SEEN); UR CLARITY CLOUDY (CLEAR); UR COLOR YELLOW (YELLOW); UR GLUCOSE (Dip) NEGATIVE (NEGATIVE); UR KETONES (Dip) NEGATIVE (NEGATIVE); UR LEUKOCYTE ESTERASE (Dip) 3+ Leu/ul (NEGATIVE); UR MUCUS FEW /HPF (NONE SEEN); UR NITRITE (Dip) NEGATIVE (NEGATIVE); UR RBC 49 /HPF (0-5); UR SPECIFIC GRAVITY (Dip) 1.023 (1.003-1.030); UR SQUAMOUS EPITHELIAL CELL FEW /HPF (FEW); UR TOTAL PROTEIN (Dip) 2+ mg/dl (NEGATIVE); UR UROBILINOGEN (Dip) NEGATIVE (NEGATIVE)
[2016-11-18 20:17] LABS: ANION GAP 17 (8-16); BLOOD UREA NITROGEN 35 mg/dl (7-20); CALCIUM 9.5 mg/dl (8.4-10.2); CARBON DIOXIDE 29 mmol/L (21-31); CHLORIDE 97 mmol/L (97-110); CREATININE 2.25 mg/dl (0.44-1.00); GLUCOSE 172 mg/dl (70-220); POTASSIUM 3.9 mmol/L (3.5-5.1); SODIUM 139 mmol/L (135-144)
[2016-11-18 20:29] LABS: B-TYPE NATRIURETIC PEPTIDE 60 PG/ML (0-450); TROPONIN-I < 0.012 ng/ml (0.00-0.12)
[2016-11-18] MEDS ORDERED: ONDANSETRON 4 MG INJ IV PRN (22:00)
[2016-11-18] MEDS ORDERED: ACETAMINOPHEN 325 MG TAB PO PRN (22:00)
--- NOTE | 2016-11-18 22:16 | ERA ---
ER Documentation Chief Complaint Date/Time DATE: 11/18/16 TIME: 21:59 Chief Complaint CHEST PAIN HPI 76-year-old female with a history of diabetes, hypertension, CHF, obesity, arthritis, and recent UTI with hospitalization, discharged 2 days ago. She is presenting by EMS for chest pain and generalized weakness. She states she is not feeling well at all and is unable to eat. She states she feels generally weak. She has not been urinating as much as she normally does. She describes her chest pain as pressure-like, constant, nonradiating, associated with shortness of breath. No nausea or vomiting. No diarrhea. No fevers. ROS All systems reviewed and are negative except as per history of present illness. Medications Home Meds Reported Medications Sulfamethoxazole/Trimethoprim* (Bactrim Ds* Tablet) 1 Each Tablet, 1 TAB PO BID , TAB TAKE FOR 10 DAYS 11/08/16 Prednisone* (Prednisone*) 10 Mg Tab, 10 MG PO DAILY, TAB TAKE 3TAB FOR 3DAYS, 2TAB FORE 3 DAYS AND 1 TAB DAILY 11/08/16 Icosapent Ethyl (VASCEPA) 1 Gm Capsule, 1 GM PO DAILY, CAP 09/30/16 Olopatadine* (Pataday*) 0.2% - 2.5 Ml Drops, 1 DROP BOTH EYES DAILY, EA 09/30/16 Solifenacin* (Vesicare*) 5 Mg Tablet, 5 MG PO DAILY, TAB 09/30/16 Ezetimibe* (Zetia*) 10 Mg Tablet, 10 MG PO DAILY, TAB 09/30/16 Polyethylene Glycol 3350 (Polyethylene Glycol 3350) 255 Gm Powder, 255 GM PO 09/30/16 Linagliptin (TRADJENTA) 5 Mg Tablet, 5 MG PO DAILY, TAB 09/20/16 Clonidine Hcl* (Clonidine Hcl*) 0.1 Mg Tab, 0.1 MG PO DAILY Y for HTN, TAB 09/20/16 Furosemide* (Furosemide*) 40 Mg Tablet, 40 MG PO DAILY, TAB 09/20/16 Gabapentin* (Gabapentin*) 300 Mg Capsule, 300 MG PO NEEDED, #60 CAP 09/20/16 Potassium Chloride* (Potassium Chloride*) 8 Meq Capsule.er, 8 MEQ PO DAILY, CAP 09/20/16 Hydrocodone/Acetaminophen ([place] 10-325 Tablet) 1 Each Tablet, 1 EACH PO Q8H, TAB 09/20/16 Flecainide Acetate* (Flecainide Acetate*) 150 Mg Tablet, 150 MG PO BID, TAB 09/20/16 Escitalopram Oxalate* (Lexapro*) 10 Mg Tablet, 10 MG PO DAILY, #30 TAB 09/20/16 Diphenhydramine Hcl* (Benadryl*) 25 Mg Cap, 25 MG PO BID Y for ITCHING, CAP 10/21/15 Tiotropium [place]* (Spiriva*) 18 Mcg Cap.w.dev, 1 INH IH DAILY, EA 07/11/14 Metformin* (Glucophage*) 1,000 Mg Tablet, 1000 MG PO BID, TAB 07/11/14 Salmeterol Xinaf/Fluticasone* (Advair*) 250-50 Diskus Inhaler, 1 INH INH BID, INH 07/11/14 Aspirin (Low Dose Aspirin) 81 Mg Tablet.dr, 81 MG PO DAILY 07/11/14 Allergies Allergies: Coded Allergies: No Known Allergy (Unverified , 11/18/16) PMhx/Soc History of Surgery: Yes (cholecystectomy) Anesthesia Reaction: No Hx Neurological Disorder: No Hx Respiratory Disorders: Yes (asthma) Hx Cardiac Disorders: Yes (chf, htn) Hx Psychiatric Problems: No Hx Miscellaneous Medical Probl: Yes (CHF, anxiety, dyslipidemia, DM2, depression, ulcers, OA, obesity, HTN, dive) Hx Alcohol Use: No Hx Substance Use: No Hx Tobacco Use: No Smoking Status: Never smoker FmHx Family History: No coronary disease Physical Exam Vitals Vital Signs Date Time Temp Pulse Resp B/P Pulse Ox O2 Delivery O2 Flow Rate FiO2 11/18/16 20:25 96 2.0 28 11/18/16 20:11 80 17 113/73 98 Nasal Cannula 11/18/16 19:25 Nasal Cannula 2 11/18/16 19:17 98.5 85 19 111/71 Physical Exam Const: Morbidly obese, in no significant distress, appears uncomfortable Head: Atraumatic Eyes: Normal Conjunctiva ENT: Dry mucous membranes Neck: Full range of motion..~ No meningismus. Resp: Clear to auscultation bilaterally Cardio: Regular rate and rhythm, no murmurs Abd: Soft, large pannus, reducible umbilical hernia. non tender. Normal bowel sounds Skin: No petechiae or rashes Ext: No cyanosis, there is bilateral lower extremity 1+ pitting edema Neur: Awake and alert& oriented, generalized weakness in all extremities Psych: Depressed mood and Affect Result Diagram: 11/18/16191311/18/161913 Results 24 hrs Laboratory Tests Test 11/18/16 19:14 11/18/16 19:40 White Blood Count 11.810^3/ul Red Blood Count 4.3110^6/ul Hemoglobin 13.2g/dl Hematocrit 41.8% Mean Corpuscular Volume 97.0fl Mean Corpuscular Hemoglobin 30.6pg Mean Corpuscular Hemoglobin Concent 31.6g/dl Red Cell Distribution Width 13.3% Platelet Count 27104^3/UL Mean Platelet Volume 13.1fl Neutrophils % 72.6% Lymphocytes % 18.4% Monocytes % 6.6% Eosinophils % 1.4% Basophils % 0.4% Nucleated Red Blood Cells % 0.0/100WBC Neutrophils # 8.610^3/ul Lymphocytes # 2.210^3/ul Monocytes # 0.810^3/ul Eosinophils # 0.210^3/ul Basophils # 0.110^3/ul Nucleated Red Blood Cells # 0.010^3/ul Sodium Level 139mmol/L Potassium Level 3.9mmol/L Chloride Level 97mmol/L Carbon Dioxide Level 29mmol/L Anion Gap 17 Blood Urea Nitrogen 35mg/dl Creatinine 2.25mg/dl Glucose Level 172mg/dl Calcium Level 9.5mg/dl Troponin I < 0.012ng/ml B-Type Natriuretic Peptide 60PG/ML Urine Color YELLOW Urine Clarity CLOUDY Urine pH 5.0 Urine Specific [place] 1.023 Urine Ketones NEGATIVEmg/dL Urine Nitrite NEGATIVEmg/dL Urine Bilirubin NEGATIVEmg/dL Urine Urobilinogen NEGATIVEmg/dL Urine Leukocyte Esterase 3+Rl/ul Urine Microscopic RBC 49/HPF Urine Microscopic WBC 92/HPF Urine Squamous Epithelial Cells FEW/HPF Urine Calcium Oxalate Crystals MODERATE/HPF Urine Mucus FEW/HPF Urine Yeast (Budding) MANY/HPF Urine Hemoglobin 2+mg/dL Urine Glucose NEGATIVEmg/dL Urine Total Protein 2+mg/dl Current Medications Medications (Trade) Dose Ordered Sig/[place] Route PRN Reason Start Time Stop Time Status Last Admin Dose Admin Morphine Sulfate (morphine) 4 mg ONCE STAT IV 11/18/16 19:15 11/18/16 19:18 DC Acetaminophen/ Hydrocodone Bitart ([place] (5/325)) 1 tab ONCE ONCE PO 11/18/16 20:00 11/18/16 20:01 DC 11/18/16 19:53 Procedures/MDM EMERGENT LABS AND DIAGNOSTIC STUDIES: Lab Results above were reviewed and interpreted by me. CBC: no anemia or evidence of infection mild leukocytosis BMP: evidence of acute renal failure Troponin within normal limits UA: There is evidence of infection 12-lead EKG #1 was interpreted by Eladio Carrasco MD: Normal Sinus Rhythm Right bundle branch block No acute ST or T wave changes suggestive of acute ischemia or STEMI. 12-lead EKG #2 was interpreted by Eladio Carrasco MD: Normal Sinus Rhythm Right bundle branch block No acute ST or T wave changes suggestive of acute ischemia or STEMI. Radiology Results as interpreted by Radiology below were reviewed by Elgin Carrasco MD: Chest x-ray: IMPRESSION: 1. Examination limited by patient body habitus and low lung volumes. 2. Probable mild to moderate cardiomegaly. Pulmonary vascular congestion. 3. Edema or consolidation in the left mid to lower lung. 4. Moderate aortic calcification. RPTAT: HBST .Pardeep Jordan MD, MD Date Time Electronically viewed and signed by .Pardeep Jordan MD, on 11/18/2016 19:50 Initial Nursing notes reviewed. Previous Medical Records requested via the Electronic Health Record. EMERGENCY DEPARTMENT COURSE / MEDICAL DECISION MAKING: She is presenting with generalized weakness, chest pain, and decreased appetite. Her vitals were unremarkable other than uncontrolled hypertension. I have a low suspicion for aortic dissection. However I cannot rule out acute coronary syndrome. I also considered pulmonary embolism, pneumonia, acute on chronic CHF, or COPD. Her x-ray showed a possible infiltrate but it was a poor quality x-ray. She does not have symptoms of pneumonia so I think this is very unlikely. However she does have signs of fluid overload on exam. Her labs showed evidence of acute renal failure. Compared to her labs 3 days ago, this is new. Her initial troponin is negative. Her urinalysis showed evidence of infection, however the patient has a chronic [place]. A culture was sent but antibiotics were not started. No signs of sepsis at this time. Family was updated on the plan. Will defer any further workup to the inpatient team. Critical Care Time: 35 minutes Treatments/Evaluations: Close monitoring and treatment of unstable vital signs, cardiorespiratory, and neurologic status, while maintaining tight balance of fluid, respiratory, and cardiac interventions. This time includes discussing the case with the patient and the patients family. This time does not include all procedures stated elsewhere in this record. This time also includes reviewing old records, labs and radiological studies. This time includes examining and re-examining the patient. Additionally, this time also includes arranging care with admitting and consulting physicians. Accepting Care Team: Current data and ongoing care discussed. Time: Time of admission Primary Provider: Loli Consulting: none Outstanding Data: urine culture Departure Diagnosis: Primary Impression: Chest pain Qualified Code: R07.9 - Chest pain, unspecified type Additional Impression: Acute renal failure Qualified Code: N17.9 - Acute renal failure, unspecified acute renal failure type Condition: Serious MARYCARMEN CARRASCO MD Nov 18, 2016 22:16 MARYCARMEN CARRASCO MD Nov 18, 2016 22:16
[2016-11-18 22:53] VITALS: PULSE 74
[2016-11-18 23:06] VITALS: BP 99/51; RESP 23
[2016-11-18 23:08] VITALS: BP 99/51; RESP 20
[2016-11-19] VITALS (11 sets, daily range): BP systolic 109–128; BP diastolic 52–60; PULSE 69–82; RESP 18–21; Ht 152.4 cm; Wt 133.0 kg
[2016-11-19] MEDS ORDERED: HYDROCODONE/APAP (10/325) TAB PO SCH
[2016-11-19] MEDS ORDERED: DIPHENHYDRAMINE 25 MG CAP PO PRN
[2016-11-19] MEDS ORDERED: CLONIDINE 0.1 MG/24 HR PATCH TRANSDERM SCH
[2016-11-19] MEDS ORDERED: GLUCAGON 1 MG INJ IM PRN (00:15)
[2016-11-19] MEDS ORDERED: DEXTROSE 50% 50 ML SYRINGE IV PRN ×2 (00:15)
[2016-11-19] MEDS ORDERED: GLUCOSE GEL 15 GRAM TUBE BUCCAL PRN (00:15)
[2016-11-19] MEDS ORDERED: GLUCOSE GEL 15 GRAM TUBE PO PRN ×2 (00:15)
[2016-11-19] MEDS: SOD CHLORIDE 0.9% 1,000 ML IV SCH ×2 (00:38→14:08)
[2016-11-19 01:22] LABS: BASOPHILS % 0.3 % (0.0-2.0); EOSINOPHILS # 0.3 10^3/ul (0.0-0.5); EOSINOPHILS % 2.1 % (0.0-7.0); HEMATOCRIT 36.1 % (37.0-47.0); HEMOGLOBIN 11.2 g/dl (12.0-16.0); LYMPHOCYTES # 2.4 10^3/ul (0.8-2.9); LYMPHOCYTES % 18.9 % (15.0-51.0); MEAN CORPUSCULAR HEMOGLOBIN 29.4 pg (29.0-33.0); MEAN CORPUSCULAR VOLUME 94.8 fl (82.0-101.0); MEAN PLATELET VOLUME 12.7 fl (7.4-10.4); MONOCYTES % 8.1 % (0.0-11.0); NEUTROPHIL # 8.7 10^3/ul (1.6-7.5); NEUTROPHILS % 70.2 % (39.0-77.0); PLATELET COUNT 195 10^3/UL (140-415); RED BLOOD COUNT 3.81 10^6/ul (4.20-5.40); RED CELL DISTRIBUTION WIDTH 13.5 % (11.5-14.5); WHITE BLOOD COUNT 12.4 10^3/ul (4.8-10.8)
[2016-11-19 01:48] LABS: D-DIMER 573.48 ng/ml (<460)
[2016-11-19 01:50] LABS: IRON 30 ug/dl (35-150)
[2016-11-19 01:52] LABS: CALCIUM 9.3 mg/dl (8.4-10.2); CREATININE 1.65 mg/dl (0.44-1.00); MAGNESIUM 1.6 mg/dl (1.7-2.5); POTASSIUM 3.6 mmol/L (3.5-5.1)
[2016-11-19 01:59] LABS: TOTAL IRON BINDING CAPACITY 224 ug/dl (241-421)
[2016-11-19 02:17] LABS: CREATINE KINASE 23 IU/L (23-200)
[2016-11-19 02:23] LABS: THYROID STIMULATING HORMONE 1.07 MIU/L (0.465-4.680)
[2016-11-19 02:49] LABS: TROPONIN-I < 0.012 ng/ml (0.00-0.12)
[2016-11-19 08:11] LABS: CK-MB 0.33 ng/ml (0.0-2.4)
[2016-11-19 08:17] LABS: TROPONIN-I 0.015 ng/ml (0.00-0.12)
[2016-11-19 08:20] LABS: CREATINE KINASE < 20 IU/L (23-200)
[2016-11-19] MEDS: HYDROCODONE/APAP (10/325) TAB PO SCH ×3 (09:06→23:49)
[2016-11-19] MEDS: predniSONE 10 MG TAB PO SCH (09:15)
[2016-11-19] MEDS: FLECAINIDE 100 MG TAB PO SCH ×2 (09:15→21:23)
[2016-11-19] MEDS: GABAPENTIN 300 MG CAP PO SCH (09:16)
[2016-11-19] MEDS: ASPIRIN (EC) 81 MG TAB PO SCH (09:16)
[2016-11-19] MEDS: POTASSIUM CHLORIDE (SR) 8 MEQ CAP PO SCH (09:16)
[2016-11-19] MEDS: SALMETEROL/FLUTICASONE 250/50 INHA INH SCH ×2 (09:17→21:22)
[2016-11-19] MEDS: ESCITALOPRAM 10 MG TAB PO SCH (09:17)
[2016-11-19] MEDS: LINAGLIPTIN 5 MG TABLET PO SCH (09:17)
[2016-11-19] MEDS: TIOTROPIUM 18 MCG CAPSULE INHA DEV INH SCH (09:17)
[2016-11-19] MEDS: [UNRECOGNIZED DRUG - REMARK] XX SCH ×2 (09:18→16:00)
[2016-11-19] MEDS: INSULIN ASPART [NOVOLOG] 3 ML PEN SC SCH ×3 (09:24→18:06)
--- NOTE | 2016-11-19 12:55 | CONS ---
Date/Time of Note Date/Time of Note DATE: 11/19/16 TIME: 12:54 Assessment/Plan Assessment/Plan Additional Assessment/Plan 1. acute Kidney injury on possible CKD due to prerenal azotemia 2. 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 CHF 4. HTN 5. DM II 6. hyperlipidemia on Zetia Plan : continue current IVF NS, I will decrease rate to 70cc/hr magnesium sulfate 2 gram IV x 1 dose now K stable I will order Urine studies, Urine Na, Urine prot/cr ratio, urine eosinophils, CK total, Uric acid, Renal US to assess for kidney size, to rule out hydronephrosis, Continue to hold home medication of Lasix - will resume it by tomorrow Consultation Date/Type/Reason Admit Date/Time Nov 18, 2016 at 21:44 Date of Consultation: Nov 19, 2016 Type of Consultation: NEPHROLOGY Reason for Consultation acute kidney injury, rule out CKD, hypomagnesemia Referring Provider: STONE HERNANDEZ MD Hx of Present Illness 76-year-old female with a history of diabetes, hypertension, CHF, obesity, arthritis, and recent UTI with hospitalization, discharged 2 days ago. She is presenting by EMS for chest pain and generalized weakness. She states she is not feeling well at all and is unable to eat. She states she feels generally weak. she is noted to have BUN 35, Cr 2.25 and Renal has been consulted for DUANE on CKD vs DUANE. Constitutional: no complaints Eyes: no complaints ENT: no complaints Respiratory: no complaints Cardiovascular: chest pain Gastrointestinal: no complaints Genitourinary: no complaints Musculoskeletal: no complaints Skin: no complaints Neurologic: no complaints Endocrine: no complaints Lymphatic: no complaints Psychological: no complaints Immunologic: no complaints Past Medical History Medical History: diabetes, hypertension, other (CHF ) Past Surgical History Past Surgical Hx: cholecystectomy, endoscopy, other Social History Smoking Status: Never smoker Exam/Review of Systems Vital Signs Vitals Vital Signs Date Time Temp Pulse Resp B/P Pulse Ox O2 Delivery O2 Flow Rate FiO2 11/19/16 12:38 74 11/19/16 11:32 97.6 20 125/60 93 11/19/16 08:05 Nasal Cannula 2.0 11/18/16 20:25 28 Intake and Output 11/18/16 11/18/16 11/19/16 15:00 23:00 07:00 Intake Total 720 ml Output Total 300 ml Balance 420 ml Exam Constitutional: alert Psych: no complaints Head: normocephalic Eyes: nl conjunctiva ENMT: nl external ears & nose Neck: supple Respiratory: clear to auscultation, diminished breath sounds, normal air movement Cardiovascular: nl pulses, regular rate and rhythm Gastrointestinal: nl liver, spleen, non-tender, soft Musculoskeletal: nl extremities to inspection Neurological: AMMONIA WORKER II-XII intact, nl mental status, nl speech, nl strength Skin: nl turgor Lymph: nl lymph nodes Results Result Diagram: 11/19/16 0059 11/19/16 0059 Results 24 hrs Laboratory Tests Test 11/18/16 19:14 11/18/16 19:40 11/19/16 00:59 11/19/16 07:09 White Blood Count 11.8 H 12.4 H Red Blood Count 4.31 3.81 L Hemoglobin 13.2 11.2 L Hematocrit 41.8 36.1 L Mean Corpuscular Volume 97.0 94.8 Mean Corpuscular Hemoglobin 30.6 29.4 Mean Corpuscular Hemoglobin Concent 31.6 L 31.0 L Red Cell Distribution Width 13.3 13.5 Platelet Count 238 195 Mean Platelet Volume 13.1 H 12.7 H Neutrophils % 72.6 70.2 Lymphocytes % 18.4 18.9 Monocytes % 6.6 8.1 Eosinophils % 1.4 2.1 Basophils % 0.4 0.3 Nucleated Red Blood Cells % 0.0 0.0 Neutrophils # 8.6 H 8.7 H Lymphocytes # 2.2 2.4 Monocytes # 0.8 1.0 H Eosinophils # 0.2 0.3 Basophils # 0.1 0.0 Nucleated Red Blood Cells # 0.0 0.0 Sodium Level 139 135 Potassium Level 3.9 3.6 Chloride Level 97 100 Carbon Dioxide Level 29 27 Anion Gap 17 H 12 Blood Urea Nitrogen 35 H 36 H Creatinine 2.25 H 1.65 H Glucose Level 172 105 # Calcium Level 9.5 9.3 Troponin I < 0.012 < 0.012 0.015 B-Type Natriuretic Peptide 60 Urine Color YELLOW Urine Clarity CLOUDY A Urine pH 5.0 Urine Specific [place] 1.023 Urine Ketones NEGATIVE Urine Nitrite NEGATIVE Urine Bilirubin NEGATIVE Urine Urobilinogen NEGATIVE Urine Leukocyte Esterase 3+ H Urine Microscopic RBC 49 H Urine Microscopic WBC 92 H Urine Squamous Epithelial Cells FEW Urine Calcium Oxalate Crystals MODERATE Urine Mucus FEW A Urine Yeast (Budding) MANY A Urine Hemoglobin 2+ H Urine Glucose NEGATIVE Urine Total Protein 2+ H D-Dimer 573.48 #H D-Dimer Comment Magnesium Level 1.6 L Iron Level 30 L Total Iron Binding Capacity 224 L Percent Iron Saturation 13 L Creatine Kinase 23 < 20 L Creatine Kinase Index 2.2 Creatinine Kinase MB (Mass) 0.50 0.33 Thyroid Stimulating Hormone (TSH) 1.070 Test 11/19/16 09:20 11/19/16 12:32 Bedside Glucose 139 169 Medications Medications Current Medications Aspirin (Halfprin) 81 mg DAILY PO Last administered on 11/19/16 09:16; Admin Dose 81 MG; Start 11/19/16 at 09:00 Diphenhydramine HCl (Benadryl) 25 mg BID PRN PO ITCHING; Start 11/19/16 at 00: 00 Escitalopram Oxalate (Lexapro) 10 mg DAILY PO Last administered on 11/19/16 09 :17; Admin Dose 10 MG; Start 11/19/16 at 09:00 Flecainide Acetate (Tambocor) 150 mg BID PO Last administered on 11/19/16 09: 15; Admin Dose 150 MG; Start 11/19/16 at 09:00 Gabapentin (Neurontin) 300 mg DAILY PO Last administered on 11/19/16 09:16; Admin Dose 300 MG; Start 11/19/16 at 09:00 Linagliptin (Tradjenta) 5 mg DAILY PO Last administered on 11/19/16 09:17; Admin Dose 5 MG; Start 11/19/16 at 09:00 Potassium Chloride (Micro-K) 8 meq DAILY PO Last administered on 11/19/16 09: 16; Admin Dose 8 MEQ; Start 11/19/16 at 09:00 Prednisone (Prednisone) 10 mg DAILY PO Last administered on 11/19/16 09:15; Admin Dose 10 MG; Start 11/19/16 at 09:00 Salmeterol Xinafoate/ Fluticasone (Advair 250/50 Diskus) 1 inh BID INH Last administered on 11/19/16 09:17; Admin Dose 1 INH; Start 11/19/16 at 09:00 Tiotropium [place] (Spiriva) 1 inh DAILY INH Last administered on 11/19/16 09: 17; Admin Dose 1 INH; Start 11/19/16 at 09:00 Miscellaneous Information 1 drop DAILY XX ; Start 11/19/16 at 09:00; Status UNV Acetaminophen/ Hydrocodone Bitart 1 tab 1 tab Q8H PO Last administered on 09:06; Admin Dose 1 TAB; Start 11/19/16 at 08:00 Sodium Chloride (NS) 1,000 ml @ 80 mls/hr [id number] IV Last administered on 11/19 00:38; Admin Dose 80 MLS/HR; Start 11/19/16 at 00:00 Clonidine HCl (Catapres-Tts 1 Patch) 1 patch Q7D TRANSDERM ; Start 11/19/16 at 00:00 Miscellaneous Information 1 ea NOTE XX ; Start 11/19/16 at 00:15 Glucose (Glutose) 15 gm Q15M PRN PO DECREASED GLUCOSE; Start 11/19/16 at 00:15 Glucose (Glutose) 22.5 gm Q15M PRN PO DECREASED GLUCOSE; Start 11/19/16 at 00: 15 Dextrose (D50w Syringe) 25 ml Q15M PRN IV DECREASED GLUCOSE; Start 11/19/16 at 00:15 Dextrose (D50w Syringe) 50 ml Q15M PRN IV DECREASED GLUCOSE; Start 11/19/16 at 00:15 Glucagon (Glucagen) 1 mg Q15M PRN IM DECREASED GLUCOSE; Start 11/19/16 at 00:15 Glucose (Glutose) 15 gm Q15M PRN BUCCAL DECREASED GLUCOSE; Start 11/19/16 at 00 :15 Influenza Virus Vaccine (Fluzone) 0.5 ml ONCE ONCE IM* ; Start 11/20/16 at 09:00 ; Stop 11/20/16 at 09:01 Miscellaneous Information MEDICATION REQUIRES CLARIFICATION: Q8H XX ; Start 11/19/16 at 08:00 Ferric Sodium Gluconate Complex 125 mg/Sodium Chloride 110 ml @ 110 mls/hr Q24H IVPB ; Start 11/19/16 at 13:00; Stop 11/23/16 at 13:59; Status UNV Magnesium Sulfate (Magnesium Sulfate 2 Gm/50 ml) 50 ml @ 25 mls/hr ONCE ONCE IVPB ; Start 10/6/17 at 13:00; Stop 11/19/16 at 14:59; Status UNV JACK VALLE MD Nov 19, 2016 12:55
[2016-11-19] MEDS ORDERED: MAGNESIUM SULFATE 2 GM/50 ML 50 ML IVPB ONE (13:00)
--- NOTE | 2016-11-19 15:49 | RADRPT ---
PROCEDURE: Renal US. CLINICAL INDICATION: acute renal falure, elevated Cr, Bp stable TECHNIQUE: Multiple sonographic images of the kidneys were obtained. The images were reviewed on a PACS workstation. COMPARISON: No prior studies are available for comparison. FINDINGS: The kidneys are well visualized. The right kidney measures right kidney cm. The left kidney measures left kidney cm. There are no focal areas of abnormal echogenicity. There is no evidence for obstruc tive uropathy. There is a 3.4 cm cyst in the right kidney. The bladder is obscured by bowel gas. IMPRESSION: 3.4 cm cyst in the inferior pole right kidney. No evidence hydronephrosis. Bladder obscured by bowel gas. RPTAT: GG .Katerine Garcia MD, Date Time Electronically viewed and signed by .Katerine Garcia MD, MD on 11/19/2016 15:49 .G/
[2016-11-19] MEDS: SOD FERRIC GLUC COMPLX 125 MG in SOD CHLORIDE 0.9% 100 ML IVPB SCH (16:14)
[2016-11-19 19:09] LABS: PROTEIN/CREAT RATIO 0.16 RATIO
[2016-11-19] MEDS: OLOPATADINE 0.1% 5 ML OPH BOTH EYES SCH (21:00)
--- NOTE | 2016-11-19 21:07 | HP ---
Date/Time of Note Date/Time of Note DATE: 11/19/16 TIME: 21:04 Assessment/Plan VTE Prophylaxis VTE Prophylaxis Intervention: ambulation VTE Contraindication Reason: peripheral vascular disease Lines/Catheters IV Catheter Type (from Nrsg): Saline Lock Central line still needed: No Urinary Cath still in place: Yes Reason Cath still needed: urinary retention, other (indicate) (on and off inability to hold a urine. It leaks.) Assessment/Plan Assessment/Plan 1. Lethargy with hallucinations and being unable to wake up. 2. Hematuria x 3 days 3.Low abdominal pain and llq abd pain 4. Congestive heart failure exacerbation with radiologically documented pulmonary edema. With acute elevation of creatinine. 5. History of having palpitations-now bradycardic; lowest rate 45's now 67bpm. 6. History of having bronchial asthma, now stable. 7. Wound of the postsurgical scar, right-sided abdomen, healed. 8. Status post cholecystectomy. 9. Postmenstrual syndrome. 10. Anxiety. 11. Claustrophobia. 12. Dyslipidemia. 13. Diabetes type 2. 14. History of having carbon dioxide retention. 15. Anemia of chronic disease with recent loss. 16. History of chronic kidney disease, improving during previous hospitalization, now got worse. 17. History of having low iron and low magnesium levels with current low levels. 18. Pain syndrome. 19. Major depression. 20. Altered level of consciousness. 21. Diverticulitis. 22. Left-sided chest pain. 23.carbon dioxide narcosis (Hx of) 24.Trophic changes of both legs with change of a color. 25.Pilling of the skin of nailbeds of both hands with deformities and trace of blood and swelling.26. 26.More than 11 years bedridden 27.Decubitus of t he left gluteal area with mild redness of the calcaneal skin 28.Severe deconditioning 29.Daytime sleepiness 30.Severe krupa of knees, hips ans ankle joints 31.Calcaneal pain. 32.Umbilical reducible hernia 4-5cm in diameter.Postsurgical. 33.Chronic norco,percocet, and other controlled substance user. 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 Hallucinations, confusion, fear on and off 37.Hypertension, now normotensive. 38.Hx of co2 retention- will recheck. Cont'd Hospitalization Reason: hallucinations, acute RF. HPI/ROS Admit Date/Time Admit Date/Time Sob improved already. I am very weak.Nov 18, 2016 at 21:44; I am confused as of what is going on. I don't know where am I . I am anxious, tense, fearful, terrified secondary the event of being unable to wake up when a Daughter attempted to do that.I can't recall what she said exactly. I am sleepy most of the time. Now I am ok, not sleeping. I depend from other people.Why you decided to come to hospital. What was the main reason? I was afraid that I will not woke up. ROS Subjective hx not possible: pt critical, pt critical status Constitutional: chills, diaphoresis, disoriented, fatigue, nausea, poor po, weight change, No febrile, No improved, No no complaints, No other Eyes: no complaints, redness, visual change, No discharge, No other, No pain ENT: congestion, dysphagia, no complaints, pain, sore throat, No bleeding, No discharge, No other Respiratory: cough, no complaints, shortness of breath, sputum, No other, No pain, No pleuritic pain, No wheezing Cardiovascular: chest pain, edema, lightheadedness, orthopenea, palpitations, paroxysmal nocturnal dyspnea, No no complaints, No other Gastrointestinal: constipation, decreased appetite, flatus, nausea, no complaints, pain, passing stool, No blood, No diarrhea, No other, No vomiting Genitourinary: dysuria (cotton like precipitates in the folley Catheter at home.), flank pain, no complaints, No bleeding, No discharge, No hematuria, No other Musculoskeletal: back pain, bone/joint pain, neck pain, no complaints, restricted range of motion, No other, No swelling Skin: bruising, no complaints, other (dry upper extremity skin and edematose ankles.), pruritis, rash, skin lesions Neurologic: dizziness, headache, no complaints, No confusion, No focal-weakness, No other, No seizure, No syncope Endocrine: dry skin, polydypsia, polyuria, temp intolerance, weight change, No no complaints, No other Lymphatic: no complaints, No adenopathy, No lymphadema, No other, No tender nodes Psychological: no complaints Immunologic: no complaints PMH/Family/Social Past Medical History Medical History: angina, congestive heart failure, coronary artery disease, diabetes, diverticulitis, GERD, GI bleed, high cholesterol, hypertension, peptic ulcer disease, urinary tract infection, other (CHF ) Past Surgical History Past Surgical Hx: cholecystectomy, endoscopy, other Family History Significant Family History: asthma, heart disease, diabetes, hypertension, lung disease, renal disease, vascular disease Social History Alcohol Use: none Smoking Status: Never smoker Drug Use: none Exam/Review of Systems Vital Signs Vitals Vital Signs Date Time Temp Pulse Resp B/P Pulse Ox O2 Delivery O2 Flow Rate FiO2 11/19/16 20:35 69 11/19/16 19:33 99.9 18 109/52 93 11/19/16 08:05 Nasal Cannula 2.0 11/18/16 20:25 28 Intake and Output 11/18/16 11/18/16 11/19/16 15:00 23:00 07:00 Intake Total 720 ml Output Total 300 ml Balance 420 ml Labs Result Diagram: 11/19/16 0059 11/19/16 0059 Medications Medications Current Medications Aspirin (Halfprin) 81 mg DAILY PO Last administered on 11/19/16 09:16; Admin Dose 81 MG; Start 11/19/16 at 09:00 Diphenhydramine HCl (Benadryl) 25 mg BID PRN PO ITCHING; Start 11/19/16 at 00: 00 Escitalopram Oxalate (Lexapro) 10 mg DAILY PO Last administered on 11/19/16 09 :17; Admin Dose 10 MG; Start 11/19/16 at 09:00 Flecainide Acetate (Tambocor) 150 mg BID PO Last administered on 11/19/16 09: 15; Admin Dose 150 MG; Start 11/19/16 at 09:00 Gabapentin (Neurontin) 300 mg DAILY PO Last administered on 11/19/16 09:16; Admin Dose 300 MG; Start 11/19/16 at 09:00 Linagliptin (Tradjenta) 5 mg DAILY PO Last administered on 11/19/16 09:17; Admin Dose 5 MG; Start 11/19/16 at 09:00 Potassium Chloride (Micro-K) 8 meq DAILY PO Last administered on 11/19/16 09: 16; Admin Dose 8 MEQ; Start 11/19/16 at 09:00 Prednisone (Prednisone) 10 mg DAILY PO Last administered on 11/19/16 09:15; Admin Dose 10 MG; Start 11/19/16 at 09:00 Salmeterol Xinafoate/ Fluticasone (Advair 250/50 Diskus) 1 inh BID INH Last administered on 11/19/16 09:17; Admin Dose 1 INH; Start 11/19/16 at 09:00 Tiotropium [place] (Spiriva) 1 inh DAILY INH Last administered on 11/19/16 09: 17; Admin Dose 1 INH; Start 11/19/16 at 09:00 Olopatadine HCl (Patanol 0.1% Oph) 1 drop BID BOTH EYES ; Start 11/19/16 at 21: 00 Acetaminophen/ Hydrocodone Bitart 1 tab 1 tab Q8H PO Last administered on 16:14; Admin Dose 1 TAB; Start 11/19/16 at 08:00 Sodium Chloride (NS) 1,000 ml @ 70 mls/hr [id number] IV Last administered on 11/19 14:08; Admin Dose 70 MLS/HR; Start 11/19/16 at 00:00 Clonidine HCl (Catapres-Tts 1 Patch) 1 patch Q7D TRANSDERM ; Start 11/19/16 at 00:00 Miscellaneous Information 1 ea NOTE XX ; Start 11/19/16 at 00:15 Glucose (Glutose) 15 gm Q15M PRN PO DECREASED GLUCOSE; Start 11/19/16 at 00:15 Glucose (Glutose) 22.5 gm Q15M PRN PO DECREASED GLUCOSE; Start 11/19/16 at 00: 15 Dextrose (D50w Syringe) 25 ml Q15M PRN IV DECREASED GLUCOSE; Start 11/19/16 at 00:15 Dextrose (D50w Syringe) 50 ml Q15M PRN IV DECREASED GLUCOSE; Start 11/19/16 at 00:15 Glucagon (Glucagen) 1 mg Q15M PRN IM DECREASED GLUCOSE; Start 11/19/16 at 00:15 Glucose (Glutose) 15 gm Q15M PRN BUCCAL DECREASED GLUCOSE; Start 11/19/16 at 00 :15 Influenza Virus Vaccine (Fluzone) 0.5 ml ONCE ONCE IM* ; Start 11/20/16 at 09:00 ; Stop 11/20/16 at 09:01 Miscellaneous Information MEDICATION REQUIRES CLARIFICATION: Q8H XX ; Start 11/19/16 at 08:00 Ferric Sodium Gluconate Complex/ Sodium Chloride (Ferrlecit/NS) 110 ml @ 110 mls/hr Q24H IVPB Last administered on 11/19/16t 16:14; Admin Dose 110 MLS/HR; Start 11/19/16 at 15:00; Stop 11/23/16 at 15:59 STONE HERNANDEZ MD Nov 19, 2016 21:07
[2016-11-20] VITALS (13 sets, daily range): BP systolic 105–126; BP diastolic 55–77; PULSE 63–105; RESP 17–20
[2016-11-20] MEDS: SOD CHLORIDE 0.9% 1,000 ML IV SCH (02:43)
[2016-11-20 07:55] LABS: BASOPHILS % 0.2 % (0.0-2.0); EOSINOPHILS # 0.3 10^3/ul (0.0-0.5); EOSINOPHILS % 3.1 % (0.0-7.0); HEMATOCRIT 35.6 % (37.0-47.0); HEMOGLOBIN 10.9 g/dl (12.0-16.0); LYMPHOCYTES # 2.1 10^3/ul (0.8-2.9); LYMPHOCYTES % 26.2 % (15.0-51.0); MEAN CORPUSCULAR HEMOGLOBIN 29.4 pg (29.0-33.0); MEAN CORPUSCULAR HGB CONC 30.6 g/dl (32.0-37.0); MEAN PLATELET VOLUME 12.4 fl (7.4-10.4); MONOCYTE # 0.6 10^3/ul (0.3-0.9); NEUTROPHILS % 62.1 % (39.0-77.0); PLATELET COUNT 188 10^3/UL (140-415); RED BLOOD COUNT 3.71 10^6/ul (4.20-5.40); RED CELL DISTRIBUTION WIDTH 13.4 % (11.5-14.5)
[2016-11-20 08:10] LABS: ALBUMIN 3.2 g/dl (3.3-4.9); ALBUMIN/GLOBULIN RATIO 1.06; BILIRUBIN,INDIRECT 0.1 mg/dl (0-1.1); BILIRUBIN,TOTAL 0.1 mg/dl (0.2-1.3); CALCIUM 9.3 mg/dl (8.4-10.2); CREATININE 0.88 mg/dl (0.44-1.00); POTASSIUM 4.2 mmol/L (3.5-5.1); TOTAL PROTEIN 6.2 g/dl (6.1-8.1)
[2016-11-20 08:20] LABS: INR 1.01; PROTIME 13.3 Sec (12.2-14.2)
[2016-11-20 08:21] LABS: PARTIAL THROMBOPLASTIN TIME 31.2 Sec (25.0-35.0)
[2016-11-20] MEDS: ESCITALOPRAM 10 MG TAB PO SCH (08:38)
[2016-11-20] MEDS: FLECAINIDE 100 MG TAB PO SCH ×2 (08:38→21:33)
[2016-11-20] MEDS: ASPIRIN (EC) 81 MG TAB PO SCH (08:38)
[2016-11-20] MEDS: GABAPENTIN 300 MG CAP PO SCH (08:39)
[2016-11-20] MEDS: predniSONE 10 MG TAB PO SCH (08:39)
[2016-11-20] MEDS: LINAGLIPTIN 5 MG TABLET PO SCH (08:39)
[2016-11-20] MEDS: POTASSIUM CHLORIDE (SR) 8 MEQ CAP PO SCH (08:39)
[2016-11-20] MEDS: HYDROCODONE/APAP (10/325) TAB PO SCH ×3 (08:39→23:54)
[2016-11-20] MEDS: SALMETEROL/FLUTICASONE 250/50 INHA INH SCH ×2 (08:40→21:34)
[2016-11-20] MEDS: TIOTROPIUM 18 MCG CAPSULE INHA DEV INH SCH (08:40)
--- NOTE | 2016-11-20 08:40 | PN ---
Date/Time of Note Date/Time of Note DATE: 11/20/16 TIME: 08:23 Assessment/Plan VTE Prophylaxis VTE Prophylaxis Intervention: ambulation, anti-embolic stocking VTE Contraindication Reason: peripheral vascular disease Lines/Catheters IV Catheter Type (from Nrsg): Peripheral IV Central line still needed: No Urinary Cath still in place: Yes Reason Cath still needed: urinary retention, other (indicate) (unable to hold a urine. referred to keep Folley cathter in.) Subjective 24 Hr Interval Summary Free Text/Dictation I see things which I lather realize are not real.I am afraid. I can 't move. I don't know am sleeping or I am awake. I am afraid I will . Subjective hx not possible: pt critical status Constitutional: chills, diaphoresis, disoriented, improved, requiring IVF, requiring O2 Eyes: discharge, pain, redness, visual change, No no complaints, No other ENT: congestion, dysphagia, No bleeding, No discharge, No no complaints, No other, No pain, No sore throat Respiratory: cough, shortness of breath, No no complaints, No other, No pain, No pleuritic pain, No sputum, No wheezing Cardiovascular: chest pain, edema (improved.), lightheadedness, orthopenea, palpitations, paroxysmal nocturnal dyspnea Gastrointestinal: constipation, decreased appetite, flatus, nausea, pain, passing stool, vomiting, No blood, No diarrhea, No no complaints, No other Genitourinary: dysuria, other (cloudy urine on and off.), No bleeding, No discharge, No flank pain, No hematuria, No no complaints Musculoskeletal: back pain, bone/joint pain, neck pain, No no complaints, No other, No restricted range of motion, No swelling Skin: erythema, pruritis, rash, skin lesions (multiple s/c echimoses.), No bruising, No laceration, No no complaints, No other Neurologic: confusion, dizziness, headache, syncope (possible at home. She states that family members were actually unable to wake her up .) Endocrine: dry skin, polydypsia, temp intolerance, No no complaints, No other, No polyuria Lymphatic: No adenopathy, No lymphadema, No no complaints, No other, No tender nodes Psychological: anxiety, confusion, depression Immunologic: pruritis, rhinitis Exam/Review of Systems Vital Signs Vitals Vital Signs Date Time Temp Pulse Resp B/P Pulse Ox O2 Delivery O2 Flow Rate FiO2 11/20/16 07:37 98.0 64 20 105/55 96 11/20/16 04:09 Nasal Cannula 2.0 11/18/16 20:25 28 Intake and Output 11/19/16 11/19/16 11/20/16 15:00 23:00 07:00 Intake Total 520 ml 1360 ml 950 ml Output Total 700 ml 750 ml Balance 520 ml 660 ml 200 ml Exam Constitutional: alert, distress, frail, obese (Was lethargic. Woke up during attempting to listen her heart.), oriented (disorinented.), well developed, No non-verbal, No other Psych: anxiety, confusion, depression, nl mood/affect, No no complaints, No other, No suicidal Head: atraumatic, hematomas, lacerations, normocephalic Eyes: EOMI, PERRL, nl conjunctiva (erythematose.), nl lids (swollen.) ENMT: mucosa pink and moist (pale,dry.), nl external ears & nose, nl nasal mucosa & septum, No intubated, No nl lips & teeth, No other, No tympanic membranes Neck: bruits, jvd, nuchal rigidity, thyromegaly, No masses, No non-tender, No other, No supple Respiratory: congested cough, crackles/rales, diminished breath sounds, respirations, No clear to auscultation, No intercostal retraction, No labored breathing, No normal air movement, No other, No tactile fremitus, No wheezing Cardiovascular: bruits, edema, jugular venous distention (JVD), murmurs/extra sounds, nl pulses, regular rate and rhythm, systolic murmur, No S3, No S4, No diastolic murmur, No gallop, No irregular rhythm, No other, No rub Gastrointestinal: ascites, bowel sounds, distended, nl liver, spleen, non- tender (very obese with pannus.), soft, surgical scars, tender, No firm, No hepatomegaly, No mass, No other, No rebound or guarding, No splenomegaly Genitourinary - Female: CVA tenderness, nl external genitalia, other (bernstein is draining darker than usual urine.), No CMT, No nl adnexae, No uterus Musculoskeletal: joint tenderness, muscle tone, muscle weakness, nl gait and stance, range of motion, No nl extremities to inspection, No other, No spine non-tender, No swelling Extremities: edema, pitting pedal edema, tenderness Neurological: CERTIFIED ANESTHESIOLOGIST ASSISTANT II-XII intact (decreased hearing.), confused, lethargic ( arousable.), nl mental status (anxious, tense, fearful, terrified secondary the event of being unable to wake up when a Daughter attempet to do that.), nl strength (decreased), numbness Skin: ecchymosis, laceration, puncture, rash or lesions Lymph: No enlarged, No nl lymph nodes, No nontender, No other Results Result Diagram: 11/20/1622 11/20/16721 Results 24 hrs Laboratory Tests Test 11/19/16 09:20 11/19/16 12:32 11/19/16 17:25 11/19/16 17:54 Bedside Glucose 139 169 122 Urine Eosinophils % 1.0 Urine Random Creatinine 80.29 Urine Random Sodium 87 Urine Protein/Creatinine Ratio 0.16 Urine Total Protein 13.0 H Test 11/20/16 07:22 White Blood Count 8.0 # Red Blood Count 3.71 L Hemoglobin 10.9 L Hematocrit 35.6 L Mean Corpuscular Volume 96.0 Mean Corpuscular Hemoglobin 29.4 Mean Corpuscular Hemoglobin Concent 30.6 L Red Cell Distribution Width 13.4 Platelet Count 188 Mean Platelet Volume 12.4 H Neutrophils % 62.1 Lymphocytes % 26.2 Monocytes % 8.0 Eosinophils % 3.1 Basophils % 0.2 Nucleated Red Blood Cells % 0.0 Neutrophils # 5.0 Lymphocytes # 2.1 Monocytes # 0.6 Eosinophils # 0.3 Basophils # 0.0 Nucleated Red Blood Cells # 0.0 Prothrombin Time 13.3 Prothrombin Time Ratio 1.0 INR International Normalized Ratio 1.01 Activated Partial Thromboplast Time 31.2 Sodium Level 138 Potassium Level 4.2 Chloride Level 105 Carbon Dioxide Level 29 Anion Gap 8 Blood Urea Nitrogen 17 # Creatinine 0.88 Glucose Level 109 Uric Acid 8.3 H Calcium Level 9.3 Total Bilirubin 0.1 L Direct Bilirubin 0.00 Indirect Bilirubin 0.1 Aspartate Amino Transf (AST/SGOT) 17 Alanine Aminotransferase (ALT/SGPT) 32 Alkaline Phosphatase 60 Creatine Kinase < 20 L Total Protein 6.2 Albumin 3.2 L Globulin 3.00 Albumin/Globulin Ratio 1.06 Medications Medications Current Medications Aspirin (Halfprin) 81 mg DAILY PO Last administered on 11/19/16 09:16; Admin Dose 81 MG; Start 11/19/16 at 09:00 Diphenhydramine HCl (Benadryl) 25 mg BID PRN PO ITCHING; Start 11/19/16 at 00: 00 Escitalopram Oxalate (Lexapro) 10 mg DAILY PO Last administered on 11/19/16 09 :17; Admin Dose 10 MG; Start 11/19/16 at 09:00 Flecainide Acetate (Tambocor) 150 mg BID PO Last administered on 11/19/16 21: 23; Admin Dose 150 MG; Start 11/19/16 at 09:00 Gabapentin (Neurontin) 300 mg DAILY PO Last administered on 11/19/16 09:16; Admin Dose 300 MG; Start 11/19/16 at 09:00 Linagliptin (Tradjenta) 5 mg DAILY PO Last administered on 11/19/16 09:17; Admin Dose 5 MG; Start 11/19/16 at 09:00 Potassium Chloride (Micro-K) 8 meq DAILY PO Last administered on 11/19/16 09: 16; Admin Dose 8 MEQ; Start 11/19/16 at 09:00 Prednisone (Prednisone) 10 mg DAILY PO Last administered on 11/19/16 09:15; Admin Dose 10 MG; Start 11/19/16 at 09:00 Salmeterol Xinafoate/ Fluticasone (Advair 250/50 Diskus) 1 inh BID INH Last administered on 11/19/16 21:22; Admin Dose 1 INH; Start 11/19/16 at 09:00 Tiotropium [place] (Spiriva) 1 inh DAILY INH Last administered on 11/19/16 09: 17; Admin Dose 1 INH; Start 11/19/16 at 09:00 Olopatadine HCl (Patanol 0.1% Oph) 1 drop BID BOTH EYES ; Start 11/19/16 at 21: 00 Acetaminophen/ Hydrocodone Bitart 1 tab 1 tab Q8H PO Last administered on 23:49; Admin Dose 1 TAB; Start 11/19/16 at 08:00 Sodium Chloride (NS) 1,000 ml @ 70 mls/hr [id number] IV Last administered on 11/19 14:08; Admin Dose 70 MLS/HR; Start 11/19/16 at 00:00 Clonidine HCl (Catapres-Tts 1 Patch) 1 patch Q7D TRANSDERM ; Start 11/19/16 at 00:00 Miscellaneous Information 1 ea NOTE XX ; Start 11/19/16 at 00:15 Glucose (Glutose) 15 gm Q15M PRN PO DECREASED GLUCOSE; Start 11/19/16 at 00:15 Glucose (Glutose) 22.5 gm Q15M PRN PO DECREASED GLUCOSE; Start 11/19/16 at 00: 15 Dextrose (D50w Syringe) 25 ml Q15M PRN IV DECREASED GLUCOSE; Start 11/19/16 at 00:15 Dextrose (D50w Syringe) 50 ml Q15M PRN IV DECREASED GLUCOSE; Start 11/19/16 at 00:15 Glucagon (Glucagen) 1 mg Q15M PRN IM DECREASED GLUCOSE; Start 11/19/16 at 00:15 Glucose (Glutose) 15 gm Q15M PRN BUCCAL DECREASED GLUCOSE; Start 11/19/16 at 00 :15 Influenza Virus Vaccine (Fluzone) 0.5 ml ONCE ONCE IM* ; Start 11/20/16 at 09:00 ; Stop 11/20/16 at 09:01 Miscellaneous Information MEDICATION REQUIRES CLARIFICATION: Q8H XX ; Start 11/19/16 at 08:00 Ferric Sodium Gluconate Complex/ Sodium Chloride (Ferrlecit/NS) 110 ml @ 110 mls/hr Q24H IVPB Last administered on 11/19/16 16:14; Admin Dose 110 MLS/HR; Start 11/19/16 at 15:00; Stop 11/23/16 at 15:59 STONE HERNANDEZ MD Nov 20, 2016 08:33
[2016-11-20] MEDS: [UNRECOGNIZED DRUG - REMARK] XX SCH ×2 (09:00)
[2016-11-20] MEDS ORDERED: INFLUENZA VIRUS VACCINE 0.5 ML (DISPENSING) IM* ONE (09:00)
[2016-11-20] MEDS: INSULIN ASPART [NOVOLOG] 3 ML PEN SC SCH ×3 (09:00→18:07)
[2016-11-20 09:23] LABS: AADO2 Arterial 26.6 mmHg (7.0-24.0); Allen Test ACCEPTAB; Arterial Base Excess 0 mmol/L (-3.0-3); Arterial COHb 0.5 % (0.0-3.0); Arterial Fraction of Oxyhgb 91.9 % (93.0-99.0); Arterial HCO3 25.6 mmol/L (22.0-26.0); Arterial MetHb 0.3 % (0.0-1.5); MODE ROOM AIR
[2016-11-20] MEDS: OLOPATADINE 0.1% 5 ML OPH BOTH EYES SCH ×2 (10:51→21:34)
[2016-11-20] MEDS: ENOXAPARIN 80 MG/0.8 ML SYG SC SCH ×2 (11:02→21:43)
--- NOTE | 2016-11-20 14:52 | CONS ---
Date/Time of Note Date/Time of Note DATE: 11/20/16 TIME: 14:48 Assessment/Plan Assessment/Plan Additional Assessment/Plan 1. acute Kidney injury on possible CKD due to prerenal azotemia 2. 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 CHF 4. HTN 5. DM II 6. hyperlipidemia on Zetia 7. Hyperuricemia with uric acid 8.3, no symptoms of gout Plan : continue current IVF NS, I will decrease rate to 50cc/hr x 1 liter then stop Cr improved to normal, other electorlytes stable Continue to hold lasix for now, will plan to resume it tomorrow. allopurinol 100mg po daily for hyperuricemia Renal US showed echogenicity c/w medical renal disease, no size of kidney mentioned in US result will follow up Consultation Date/Type/Reason Admit Date/Time Nov 18, 2016 at 21:44 Initial Consult Date 11/19/16 Type of Consultation: NEPHROLOGY Referring Provider: STONE HERNANDEZ MD 24 HR Interval Summary Free Text/Dictation Cr improved to normal with IVF hydation, Cr 0.88,. other electrolytes stable, no chest pain, no SOB Exam/Review of Systems Vital Signs Vitals Vital Signs Date Time Temp Pulse Resp B/P Pulse Ox O2 Delivery O2 Flow Rate FiO2 11/20/16 12:00 72 11/20/16 11:46 98.8 20 126/61 96 11/20/16 08:05 Nasal Cannula 2.0 11/18/16 20:25 28 Intake and Output 11/19/16 11/19/16 11/20/16 15:00 23:00 07:00 Intake Total 520 ml 1360 ml 950 ml Output Total 700 ml 750 ml Balance 520 ml 660 ml 200 ml Exam Constitutional: alert Psych: no complaints Respiratory: clear to auscultation, diminished breath sounds, normal air movement Cardiovascular: nl pulses, regular rate and rhythm Gastrointestinal: nl liver, spleen, non-tender, soft Musculoskeletal: nl extremities to inspection Neurological: RADAR OPERATOR II-XII intact, nl mental status, nl speech, nl strength Skin: nl turgor Lymph: nl lymph nodes Results Result Diagram: 11/20/1672111/20/16 0722 Results 24 hrs Laboratory Tests Test 11/19/16 17:25 11/19/16 17:54 10/7/17 07:22 11/20/16 08:28 Urine Eosinophils % 1.0 Urine Random Creatinine 80.29 Urine Random Sodium 87 Urine Protein/Creatinine Ratio 0.16 Urine Total Protein 13.0 H Bedside Glucose 122 White Blood Count 8.0 # Red Blood Count 3.71 L Hemoglobin 10.9 L Hematocrit 35.6 L Mean Corpuscular Volume 96.0 Mean Corpuscular Hemoglobin 29.4 Mean Corpuscular Hemoglobin Concent 30.6 L Red Cell Distribution Width 13.4 Platelet Count 188 Mean Platelet Volume 12.4 H Neutrophils % 62.1 Lymphocytes % 26.2 Monocytes % 8.0 Eosinophils % 3.1 Basophils % 0.2 Nucleated Red Blood Cells % 0.0 Neutrophils # 5.0 Lymphocytes # 2.1 Monocytes # 0.6 Eosinophils # 0.3 Basophils # 0.0 Nucleated Red Blood Cells # 0.0 Prothrombin Time 13.3 Prothrombin Time Ratio 1.0 INR International Normalized Ratio 1.01 Activated Partial Thromboplast Time 31.2 Sodium Level 138 Potassium Level 4.2 Chloride Level 105 Carbon Dioxide Level 29 Anion Gap 8 Blood Urea Nitrogen 17 # Creatinine 0.88 Glucose Level 109 Uric Acid 8.3 H Calcium Level 9.3 Total Bilirubin 0.1 L Direct Bilirubin 0.00 Indirect Bilirubin 0.1 Aspartate Amino Transf (AST/SGOT) 17 Alanine Aminotransferase (ALT/SGPT) 32 Alkaline Phosphatase 60 Creatine Kinase < 20 L Total Protein 6.2 Albumin 3.2 L Globulin 3.00 Albumin/Globulin Ratio 1.06 Blood Gas Specimen Source Blood arterial Arterial Blood Date Drawn 11/20/2016 9:00:44 AM Arterial Blood pH (Temp corrected) 7.370 Arterial Blood pCO2 (Temp correct) 45.3 H Arterial Blood pO2 (Temp corrected) 68.9 L Arterial Blood HCO3 25.6 Arterial Blood Base Excess 0 Arterial Blood Oxygen Saturation 92.6 L Erasmo Test ACCEPTAB Arterial Blood Gas Puncture Site Right Radial Arterial Blood Carboxyhemoglobin 0.5 Arterial Blood Methemoglobin 0.3 Blood Gas A-a O2 Differential 26.6 H Oxyhemoglobin Percent 91.9 L Total Hemoglobin 12.0 Blood Gas Temperature 37.0 Blood Gas Modality ROOM AIR FiO2 21.0 Blood Gas Notified Whom AC Blood Gas Notified Time 11/20/2016 9:19:51 AM Test 11/20/16 08:42 11/20/16 13:05 11/20/16 13:06 Bedside Glucose 105 231 H 184 Medications Medications Current Medications Aspirin (Halfprin) 81 mg DAILY PO Last administered on 11/20/16 08:38; Admin Dose 81 MG; Start 11/19/16 at 09:00 Diphenhydramine HCl (Benadryl) 25 mg BID PRN PO ITCHING; Start 11/19/16 at 00: 00 Escitalopram Oxalate (Lexapro) 10 mg DAILY PO Last administered on 11/20/16 08 :38; Admin Dose 10 MG; Start 11/19/16 at 09:00 Flecainide Acetate (Tambocor) 150 mg BID PO Last administered on 11/20/16 08: 38; Admin Dose 150 MG; Start 11/19/16 at 09:00 Gabapentin (Neurontin) 300 mg DAILY PO Last administered on 11/20/16 08:39; Admin Dose 300 MG; Start 11/19/16 at 09:00 Linagliptin (Tradjenta) 5 mg DAILY PO Last administered on 11/20/16 08:39; Admin Dose 5 MG; Start 11/19/16 at 09:00 Potassium Chloride (Micro-K) 8 meq DAILY PO Last administered on 11/20/16 08: 39; Admin Dose 8 MEQ; Start 11/19/16 at 09:00 Prednisone (Prednisone) 10 mg DAILY PO Last administered on 11/20/16 08:39; Admin Dose 10 MG; Start 11/19/16 at 09:00 Salmeterol Xinafoate/ Fluticasone (Advair 250/50 Diskus) 1 inh BID INH Last administered on 11/20/16 08:40; Admin Dose 1 INH; Start 11/19/16 at 09:00 Tiotropium [place] (Spiriva) 1 inh DAILY INH Last administered on 11/20/16 08: 40; Admin Dose 1 INH; Start 11/19/16 at 09:00 Olopatadine HCl (Patanol 0.1% Oph) 1 drop BID BOTH EYES Last administered on 10:51; Admin Dose 1 DROP; Start 11/19/16 at 21:00 Acetaminophen/ Hydrocodone Bitart 1 tab 1 tab Q8H PO Last administered on 08:39; Admin Dose 1 TAB; Start 11/19/16 at 08:00 Sodium Chloride (NS) 1,000 ml @ 70 mls/hr [id number] IV Last administered on 11/19 14:08; Admin Dose 70 MLS/HR; Start 11/19/16 at 00:00 Clonidine HCl (Catapres-Tts 1 Patch) 1 patch Q7D TRANSDERM ; Start 11/19/16 at 00:00 Miscellaneous Information 1 ea NOTE XX ; Start 11/19/16 at 00:15 Glucose (Glutose) 15 gm Q15M PRN PO DECREASED GLUCOSE; Start 11/19/16 at 00:15 Glucose (Glutose) 22.5 gm Q15M PRN PO DECREASED GLUCOSE; Start 11/19/16 at 00: 15 Dextrose (D50w Syringe) 25 ml Q15M PRN IV DECREASED GLUCOSE; Start 11/19/16 at 00:15 Dextrose (D50w Syringe) 50 ml Q15M PRN IV DECREASED GLUCOSE; Start 11/19/16 at 00:15 Glucagon (Glucagen) 1 mg Q15M PRN IM DECREASED GLUCOSE; Start 11/19/16 at 00:15 Glucose (Glutose) 15 gm Q15M PRN BUCCAL DECREASED GLUCOSE; Start 11/19/16 at 00 :15 Miscellaneous Information MEDICATION REQUIRES CLARIFICATION: Q8H XX ; Start 11/19/16 at 08:00 Ferric Sodium Gluconate Complex/ Sodium Chloride (Ferrlecit/NS) 110 ml @ 110 mls/hr Q24H IVPB Last administered on 11/19/16 16:14; Admin Dose 110 MLS/HR; Start 11/19/16 at 15:00; Stop 11/23/16 at 15:59 Enoxaparin Sodium (Lovenox) 80 mg Q12 SC Last administered on 11/20/16 11:02; Admin Dose 80 MG; Start 11/20/16 at 09:00 JACK VALLE MD Nov 20, 2016 14:52
[2016-11-20] MEDS ORDERED: SOD CHLORIDE 0.9% 1,000 ML IV ONE (15:30)
[2016-11-20] MEDS: SOD FERRIC GLUC COMPLX 125 MG in SOD CHLORIDE 0.9% 100 ML IVPB SCH (16:00)
--- NOTE | 2016-11-20 16:13 | RADRPT ---
PROCEDURE: US Lower extremity Venous. CLINICAL INDICATION: Edema, swelling TECHNIQUE: Multiple sonographic images of the bilateral lower extremity deep venous system was obt ained utilizing grayscale, color-flow, compressive sonography and doppler imaging with augmentation. The images were reviewed on a PACS workstation. COMPARISON: None. FINDINGS: There is normal compressibility and flow within the bilateral common femoral, deep femoral, superfic ial femoral and popliteal veins. The deep veins in the calf were incompletely visualized due to the patient's body habitus. IMPRESSION: No sonographic evidence for deep venous thrombosis in the bilateral lower extremity veins. The deep veins in the calf were incompletely visualized due to the patient's body habitus. Physician Neena Date Time Electronically viewed and signed by Physician Neena on 11/20/2016 16:12 ML/
[2016-11-21] VITALS (12 sets, daily range): BP systolic 100–117; BP diastolic 50–68; PULSE 62–70; RESP 17–70
[2016-11-21 06:17] LABS: BASOPHILS % 0.5 % (0.0-2.0); EOSINOPHILS # 0.2 10^3/ul (0.0-0.5); EOSINOPHILS % 2.6 % (0.0-7.0); HEMATOCRIT 34.9 % (37.0-47.0); HEMOGLOBIN 10.7 g/dl (12.0-16.0); LYMPHOCYTES # 2.1 10^3/ul (0.8-2.9); LYMPHOCYTES % 25.5 % (15.0-51.0); MEAN CORPUSCULAR HEMOGLOBIN 30.2 pg (29.0-33.0); MEAN CORPUSCULAR HGB CONC 30.7 g/dl (32.0-37.0); MEAN CORPUSCULAR VOLUME 98.6 fl (82.0-101.0); MEAN PLATELET VOLUME 12.6 fl (7.4-10.4); MONOCYTE # 0.7 10^3/ul (0.3-0.9); NEUTROPHIL # 5.2 10^3/ul (1.6-7.5); NEUTROPHILS % 62.9 % (39.0-77.0); PLATELET COUNT 210 10^3/UL (140-415); RED BLOOD COUNT 3.54 10^6/ul (4.20-5.40); RED CELL DISTRIBUTION WIDTH 13.3 % (11.5-14.5); WHITE BLOOD COUNT 8.2 10^3/ul (4.8-10.8)
[2016-11-21 06:22] LABS: CALCIUM 8.6 mg/dl (8.4-10.2); CREATININE 0.75 mg/dl (0.44-1.00); POTASSIUM 4.2 mmol/L (3.5-5.1)
[2016-11-21] MEDS: GABAPENTIN 300 MG CAP PO SCH (08:09)
[2016-11-21] MEDS: ASPIRIN (EC) 81 MG TAB PO SCH (08:10)
[2016-11-21] MEDS: LINAGLIPTIN 5 MG TABLET PO SCH (08:10)
[2016-11-21] MEDS: predniSONE 10 MG TAB PO SCH (08:10)
[2016-11-21] MEDS: TIOTROPIUM 18 MCG CAPSULE INHA DEV INH SCH (08:10)
[2016-11-21] MEDS: POTASSIUM CHLORIDE (SR) 8 MEQ CAP PO SCH (08:10)
[2016-11-21] MEDS: ESCITALOPRAM 10 MG TAB PO SCH (08:10)
[2016-11-21] MEDS: FLECAINIDE 100 MG TAB PO SCH ×2 (08:10→20:57)
[2016-11-21] MEDS: ALLOPURINOL 100 MG TAB PO SCH (08:10)
[2016-11-21] MEDS: SALMETEROL/FLUTICASONE 250/50 INHA INH SCH ×2 (08:11→20:58)
[2016-11-21] MEDS: OLOPATADINE 0.1% 5 ML OPH BOTH EYES SCH ×2 (08:11→20:58)
[2016-11-21] MEDS: HYDROCODONE/APAP (10/325) TAB PO SCH ×3 (08:11→23:36)
[2016-11-21] MEDS: INSULIN ASPART [NOVOLOG] 3 ML PEN SC SCH ×3 (08:17→17:33)
[2016-11-21] MEDS: ENOXAPARIN 80 MG/0.8 ML SYG SC SCH ×2 (08:18→20:56)
[2016-11-21] MEDS ORDERED: MAGNESIUM SULFATE 1 GM/D5W 100 ML IVPB ONE (13:00)
--- NOTE | 2016-11-21 15:36 | PN ---
Date/Time of Note Date/Time of Note DATE: 11/21/16 TIME: 15:20 Assessment/Plan VTE Prophylaxis VTE Prophylaxis Intervention: ambulation, anti-embolic stocking VTE Contraindication Reason: peripheral vascular disease Lines/Catheters IV Catheter Type (from Nrsg): Peripheral IV Central line still needed: No Urinary Cath still in place: Yes Reason Cath still needed: urinary retention Assessment/Plan Assessment/Plan . Lethargy with hallucinations and being unable to wake up. 2. Hematuria x 3 days 3.Low abdominal pain and llq abd pain 4. Congestive heart failure exacerbation with radiologically documented pulmonary edema. With acute elevation of creatinine. 5. History of having palpitations-now bradycardic; lowest rate 45's now 67bpm. 6. History of having bronchial asthma, now stable. 7. Wound of the postsurgical scar, right-sided abdomen, healed. 8. Status post cholecystectomy. 9. Postmenstrual syndrome. 10. Anxiety. 11. Claustrophobia. 12. Dyslipidemia. 13. Diabetes type 2. 14. History of having carbon dioxide retention. 15. Anemia of chronic disease with recent loss. 16. History of chronic kidney disease, improving during previous hospitalization, now got worse. 17. History of having low iron and low magnesium levels with current low levels. 18. Pain syndrome. 19. Major depression. 20. Altered level of consciousness. 21. Diverticulitis. 22. Left-sided chest pain. 23.carbon dioxide narcosis (Hx of) 24.Trophic changes of both legs with change of a color. 25.Pilling of the skin of nailbeds of both hands with deformities and trace of blood and swelling.26. 26.More than 11 years bedridden 27.Decubitus of t he left gluteal area with mild redness of the calcaneal skin 28.Severe deconditioning 29.Daytime sleepiness 30.Severe krupa of knees, hips ans ankle joints 31.Calcaneal pain. 32.Umbilical reducible hernia 4-5cm in diameter.Postsurgical. 33.Chronic norco,percocet, and other controlled substance user. 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 Hallucinations, confusion, fear on and off 37.Hypertension, now normotensive. 38.Hx of co2 retention- will recheck. Subjective 24 Hr Interval Summary Free Text/Dictation I am confused. I fell better comparing 203 days ago. On and off I dont remember as of what is happening with me.My breathing improved. I am less sleepy. Constitutional: disoriented, poor po, requiring O2, No chills, No diaphoresis, No febrile, No improved, No no complaints, No other, No requiring IVF Eyes: pain, redness, No discharge, No no complaints, No other, No visual change ENT: congestion, dysphagia, No bleeding, No discharge, No no complaints, No other, No pain, No sore throat Respiratory: cough, shortness of breath, No no complaints, No other, No pain, No pleuritic pain, No sputum, No wheezing Cardiovascular: lightheadedness, orthopenea, palpitations, paroxysmal nocturnal dyspnea, No chest pain, No edema, No no complaints, No other Gastrointestinal: constipation, decreased appetite, flatus, No blood, No diarrhea, No nausea, No no complaints, No other, No pain, No passing stool, No vomiting Genitourinary: dysuria, other (Mascorro removed. Will attempt to catheterise as needed. Explaind the strategy.), No bleeding, No discharge, No flank pain, No hematuria, No no complaints Musculoskeletal: back pain, bone/joint pain, neck pain Skin: bruising, pruritis, No erythema, No laceration, No no complaints, No other, No rash, No skin lesions Neurologic: dizziness, headache, No confusion, No focal-weakness, No no complaints, No other, No seizure, No syncope Psychological: anxiety, confusion, depression Exam/Review of Systems Vital Signs Vitals Vital Signs Date Time Temp Pulse Resp B/P Pulse Ox O2 Delivery O2 Flow Rate FiO2 11/21/16 15:10 98.6 78 18 100/51 98 11/21/16 04:30 Nasal Cannula 2.0 11/18/16 20:25 28 Intake and Output 11/20/16 11/20/16 11/21/16 15:00 23:00 07:00 Intake Total 990 ml 590 ml Output Total 1000 ml 1 ml Balance -10 ml 589 ml Exam Constitutional: alert, distress, frail, obese, oriented, other (On and off loses the track aof conversation.), well developed, No non-verbal Psych: anxiety, confusion, depression, nl mood/affect, No no complaints, No other, No suicidal Head: atraumatic, hematomas, lacerations, No normocephalic, No other Eyes: EOMI, PERRL, nl lids ENMT: nl nasal mucosa & septum, tympanic membranes, No intubated, No mucosa pink and moist, No nl external ears & nose, No nl lips & teeth, No other Neck: bruits, non-tender, nuchal rigidity, No jvd, No masses, No other, No supple, No thyromegaly Respiratory: congested cough, diminished breath sounds, intercostal retraction , No clear to auscultation, No crackles/rales, No labored breathing, No normal air movement, No other, No respirations, No tactile fremitus, No wheezing Cardiovascular: bruits, edema, jugular venous distention (JVD), regular rate and rhythm, systolic murmur, No S3, No S4, No diastolic murmur, No gallop, No irregular rhythm, No murmurs /extra sounds, No nl pulses, No other, No rub Gastrointestinal: bowel sounds, firm, nl liver, spleen, other, soft, surgical scars Musculoskeletal: joint tenderness (left more than right knee tenderness with mild hotness.), muscle weakness, nl gait and stance (unable to get up or to move.), No muscle tone, No nl extremities to inspection, No other, No range of motion , No spine non-tender, No swelling Extremities: calf tenderness (doppler was negative.), edema, tenderness, No clubbing, No cyanosis, No normal pulses, No other, No palpable cord, No pitting pedal edema Neurological: 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 (decreased hearing.), confused, lethargic, nl speech (on and gives uresonable answers.), numbness, No DTR's symmetric, No focal weakness, No nl mental status, No nl strength, No other, No reflexes, No unresponsive Skin: laceration, rash or lesions, No diaphoresis, No ecchymosis, No nl turgor, No other, No puncture Results Result Diagram: 11/21/16 0537 11/21/16 0537 Results 24 hrs Laboratory Tests Test 11/20/16 17:56 11/21/16 05:37 11/21/16 07:40 11/21/16 11:35 Bedside Glucose 215 156 110 White Blood Count 8.2 Red Blood Count 3.54 L Hemoglobin 10.7 L Hematocrit 34.9 L Mean Corpuscular Volume 98.6 Mean Corpuscular Hemoglobin 30.2 Mean Corpuscular Hemoglobin Concent 30.7 L Red Cell Distribution Width 13.3 Platelet Count 210 Mean Platelet Volume 12.6 H Neutrophils % 62.9 Lymphocytes % 25.5 Monocytes % 8.0 Eosinophils % 2.6 Basophils % 0.5 Nucleated Red Blood Cells % 0.0 Neutrophils # 5.2 Lymphocytes # 2.1 Monocytes # 0.7 Eosinophils # 0.2 Basophils # 0.0 Nucleated Red Blood Cells # 0.0 Sodium Level 141 Potassium Level 4.2 Chloride Level 109 Carbon Dioxide Level 26 Anion Gap 10 Blood Urea Nitrogen 16 Creatinine 0.75 Glucose Level 111 Calcium Level 8.6 Magnesium Level 1.6 L Medications Medications Current Medications Aspirin (Halfprin) 81 mg DAILY PO Last administered on 11/21/16 08:10; Admin Dose 81 MG; Start 11/19/16 at 09:00 Diphenhydramine HCl (Benadryl) 25 mg BID PRN PO ITCHING; Start 11/19/16 at 00: 00 Escitalopram Oxalate (Lexapro) 10 mg DAILY PO Last administered on 11/21/16 08 :10; Admin Dose 10 MG; Start 11/19/16 at 09:00 Flecainide Acetate (Tambocor) 150 mg BID PO Last administered on 11/21/16 08: 10; Admin Dose 150 MG; Start 11/19/16 at 09:00 Gabapentin (Neurontin) 300 mg DAILY PO Last administered on 11/21/16 08:09; Admin Dose 300 MG; Start 11/19/16 at 09:00 Linagliptin (Tradjenta) 5 mg DAILY PO Last administered on 11/21/16 08:10; Admin Dose 5 MG; Start 11/19/16 at 09:00 Potassium Chloride (Micro-K) 8 meq DAILY PO Last administered on 11/21/16 08: 10; Admin Dose 8 MEQ; Start 11/19/16 at 09:00 Prednisone (Prednisone) 10 mg DAILY PO Last administered on 11/21/16 08:10; Admin Dose 10 MG; Start 11/19/16 at 09:00 Salmeterol Xinafoate/ Fluticasone (Advair 250/50 Diskus) 1 inh BID INH Last administered on 11/21/16 08:11; Admin Dose 1 INH; Start 11/19/16 at 09:00 Tiotropium [place] (Spiriva) 1 inh DAILY INH Last administered on 11/21/16 08: 10; Admin Dose 1 INH; Start 11/19/16 at 09:00 Olopatadine HCl (Patanol 0.1% Oph) 1 drop BID BOTH EYES Last administered on 08:11; Admin Dose 1 DROP; Start 11/19/16 at 21:00 Acetaminophen/ Hydrocodone Bitart ([place] (10325)) 1 tab Q8H PO Last administered on 11/21/16 08:11; Admin Dose 1 TAB; Start 11/19/16 at 08:00 Clonidine HCl (Catapres-Tts 1 Patch) 1 patch Q7D TRANSDERM ; Start 11/19/16 at 00:00 Miscellaneous Information 1 ea NOTE XX ; Start 11/19/16 at 00:15 Glucose (Glutose) 15 gm Q15M PRN PO DECREASED GLUCOSE; Start 11/19/16 at 00:15 Glucose (Glutose) 22.5 gm Q15M PRN PO DECREASED GLUCOSE; Start 11/19/16 at 00: 15 Dextrose (D50w Syringe) 25 ml Q15M PRN IV DECREASED GLUCOSE; Start 11/19/16 at 00:15 Dextrose (D50w Syringe) 50 ml Q15M PRN IV DECREASED GLUCOSE; Start 11/19/16 at 00:15 Glucagon (Glucagen) 1 mg Q15M PRN IM DECREASED GLUCOSE; Start 11/19/16 at 00:15 Glucose 15 gm 15 gm Q15M PRN BUCCAL DECREASED GLUCOSE; Start 11/19/16 at 00:15 Ferric Sodium Gluconate Complex/ Sodium Chloride (Ferrlecit/NS) 110 ml @ 110 mls/hr Q24H IVPB Last administered on 11/20/16 16:00; Admin Dose 110 MLS/HR; Start 11/19/16 at 15:00; Stop 11/23/16 at 15:59 Enoxaparin Sodium (Lovenox) 80 mg Q12 SC Last administered on 11/21/16 08:18; Admin Dose 80 MG; Start 11/20/16 at 09:00 Allopurinol (Zyloprim) 100 mg DAILY PO Last administered on 11/21/16t 08:10; Admin Dose 100 MG; Start 11/21/16 at 09:00 STONE HERNANDEZ MD Nov 21, 2016 15:31
[2016-11-21] MEDS: MAGNESIUM SULFATE 2 GM/50 ML 50 ML IVPB SCH (16:00)
[2016-11-21] MEDS: SOD FERRIC GLUC COMPLX 125 MG in SOD CHLORIDE 0.9% 100 ML IVPB SCH (16:02)
--- NOTE | 2016-11-21 17:38 | CONS ---
Date/Time of Note Date/Time of Note DATE: 11/21/16 TIME: 17:32 Assessment/Plan Assessment/Plan Chief Complaint/Hosp Course Acute renal failure: Likely from overdiuresis. Now resolved with holding lasix and IV hydration. Chronic diastolic heart failure: EF preserved 2015. Euvolemic by exam H/o unknown cardiac arrhythmia: On flecainide chronically. DM HTN Bedbound state -d/c fluid as renal function ok now -at home may need to dose lasix PRN -ASA -flecainide -BP meds held due to hypotension earlier on admission Problems: Consultation Date/Type/Reason Admit Date/Time Nov 18, 2016 at 21:44 Date of Consultation: Nov 21, 2016 Type of Consultation: Cardiology Reason for Consultation CHF Referring Provider: STONE HERNANDEZ MD Hx of Present Illness 76 yo F with a h/o diastolic heart failure, cardiac arrhythmia (unclear details ) on flecainide, DM, HTN, HL, bedbound state for 10+ years, who presented secondary to weakness and overall malaise. The pt was found to have acute renal failure likely from overdiuresis and her renal function has normalized with IVF. She has been admitted multiple times here and at [facility] for similar nonspecific complaints including feeling weak and tired all the time and not being able to wake up from her sleep. She denies SOB at this time. per hPI Constitutional: disoriented, poor po, requiring O2, No chills, No diaphoresis, No febrile, No improved, No no complaints, No other, No requiring IVF Eyes: pain, redness, No discharge, No no complaints, No other, No visual change ENT: congestion, dysphagia, No bleeding, No discharge, No no complaints, No other, No pain, No sore throat Respiratory: cough, shortness of breath, No no complaints, No other, No pain, No pleuritic pain, No sputum, No wheezing Cardiovascular: lightheadedness, orthopenea, palpitations, paroxysmal nocturnal dyspnea, No chest pain, No edema, No no complaints, No other Gastrointestinal: constipation, decreased appetite, flatus, No blood, No diarrhea, No nausea, No no complaints, No other, No pain, No passing stool, No vomiting Genitourinary: dysuria, other (Mascorro removed. Will attempt to catheterise as needed. Explaind the strategy.), No bleeding, No discharge, No flank pain, No hematuria, No no complaints Musculoskeletal: back pain, bone/joint pain, neck pain Skin: bruising, pruritis, No erythema, No laceration, No no complaints, No other, No rash, No skin lesions Neurologic: dizziness, headache, No confusion, No focal-weakness, No no complaints, No other, No seizure, No syncope Endocrine: dry skin, polydypsia, temp intolerance, No no complaints, No other, No polyuria Lymphatic: no complaints, No adenopathy, No lymphadema, No other, No tender nodes Psychological: anxiety, confusion, depression, nl mood/affect, No no complaints, No other, No suicidal Immunologic: no complaints Past Medical History per HPI Medical History: angina, congestive heart failure, coronary artery disease, diabetes, diverticulitis, GERD, GI bleed, high cholesterol, hypertension, peptic ulcer disease, urinary tract infection, other (CHF ) Past Surgical History Past Surgical Hx: cholecystectomy, endoscopy, other Social History Alcohol Use: none Smoking Status: Never smoker Drug Use: none Exam/Review of Systems Vital Signs Vitals Vital Signs Date Time Temp Pulse Resp B/P Pulse Ox O2 Delivery O2 Flow Rate FiO2 11/21/16 16:16 63 11/21/16 15:10 98.6 18 100/51 98 11/21/16 04:30 Nasal Cannula 2.0 11/18/16 20:25 28 Intake and Output 11/20/16 11/20/16 11/21/16 15:00 23:00 07:00 Intake Total 990 ml 590 ml Output Total 1000 ml 1 ml Balance -10 ml 589 ml Exam Constitutional: alert, oriented Psych: anxiety Head: atraumatic, normocephalic Neck: No jvd (apperas flat but difficult to examine ) Respiratory: diminished breath sounds, No clear to auscultation Cardiovascular: regular rate and rhythm, systolic murmur (2/6 [place]), No edema Gastrointestinal: non-tender, soft Extremities: No edema Neurological: nl mental status, nl speech Results Result Diagram: 11/21/16 0537 11/21/16 0537 Results 24 hrs Laboratory Tests Test 11/20/16 17:56 11/21/16 05:37 11/21/16 07:40 11/21/16 11:35 Bedside Glucose 215 156 110 White Blood Count 8.2 Red Blood Count 3.54 L Hemoglobin 10.7 L Hematocrit 34.9 L Mean Corpuscular Volume 98.6 Mean Corpuscular Hemoglobin 30.2 Mean Corpuscular Hemoglobin Concent 30.7 L Red Cell Distribution Width 13.3 Platelet Count 210 Mean Platelet Volume 12.6 H Neutrophils % 62.9 Lymphocytes % 25.5 Monocytes % 8.0 Eosinophils % 2.6 Basophils % 0.5 Nucleated Red Blood Cells % 0.0 Neutrophils # 5.2 Lymphocytes # 2.1 Monocytes # 0.7 Eosinophils # 0.2 Basophils # 0.0 Nucleated Red Blood Cells # 0.0 Sodium Level 141 Potassium Level 4.2 Chloride Level 109 Carbon Dioxide Level 26 Anion Gap 10 Blood Urea Nitrogen 16 Creatinine 0.75 Glucose Level 111 Calcium Level 8.6 Magnesium Level 1.6 L Medications Medications Current Medications Aspirin (Halfprin) 81 mg DAILY PO Last administered on 11/21/16 08:10; Admin Dose 81 MG; Start 11/19/16 at 09:00 Diphenhydramine HCl (Benadryl) 25 mg BID PRN PO ITCHING Last administered on 16:02; Admin Dose 25 MG; Start 11/19/16 at 00:00 Escitalopram Oxalate (Lexapro) 10 mg DAILY PO Last administered on 11/21/16 08 :10; Admin Dose 10 MG; Start 11/19/16 at 09:00 Flecainide Acetate (Tambocor) 150 mg BID PO Last administered on 11/21/16 08: 10; Admin Dose 150 MG; Start 11/19/16 at 09:00 Gabapentin (Neurontin) 300 mg DAILY PO Last administered on 11/21/16 08:09; Admin Dose 300 MG; Start 11/19/16 at 09:00 Linagliptin (Tradjenta) 5 mg DAILY PO Last administered on 11/21/16 08:10; Admin Dose 5 MG; Start 11/19/16 at 09:00 Potassium Chloride (Micro-K) 8 meq DAILY PO Last administered on 11/21/16 08: 10; Admin Dose 8 MEQ; Start 11/19/16 at 09:00 Prednisone (Prednisone) 10 mg DAILY PO Last administered on 11/21/16 08:10; Admin Dose 10 MG; Start 11/19/16 at 09:00 Salmeterol Xinafoate/ Fluticasone (Advair 250/50 Diskus) 1 inh BID INH Last administered on 11/21/16 08:11; Admin Dose 1 INH; Start 11/19/16 at 09:00 Tiotropium [place] (Spiriva) 1 inh DAILY INH Last administered on 11/21/16 08: 10; Admin Dose 1 INH; Start 11/19/16 at 09:00 Olopatadine HCl (Patanol 0.1% Oph) 1 drop BID BOTH EYES Last administered on 08:11; Admin Dose 1 DROP; Start 11/19/16 at 21:00 Acetaminophen/ Hydrocodone Bitart ([place] (10/325)) 1 tab Q8H PO Last administered on 11/21/16 15:58; Admin Dose 1 TAB; Start 11/19/16 at 08:00 Clonidine HCl (Catapres-Tts 1 Patch) 1 patch Q7D TRANSDERM ; Start 11/19/16 at 00:00 Miscellaneous Information 1 ea NOTE XX ; Start 11/19/16 at 00:15 Glucose (Glutose) 15 gm Q15M PRN PO DECREASED GLUCOSE; Start 11/19/16 at 00:15 Glucose (Glutose) 22.5 gm Q15M PRN PO DECREASED GLUCOSE; Start 11/19/16 at 00: 15 Dextrose (D50w Syringe) 25 ml Q15M PRN IV DECREASED GLUCOSE; Start 11/19/16 at 00:15 Dextrose (D50w Syringe) 50 ml Q15M PRN IV DECREASED GLUCOSE; Start 11/19/16 at 00:15 Glucagon (Glucagen) 1 mg Q15M PRN IM DECREASED GLUCOSE; Start 11/19/16 at 00:15 Glucose 15 gm 15 gm Q15M PRN BUCCAL DECREASED GLUCOSE; Start 11/19/16 at 00:15 Ferric Sodium Gluconate Complex/ Sodium Chloride (Ferrlecit/NS) 110 ml @ 110 mls/hr Q24H IVPB Last administered on 11/21/16 16:02; Admin Dose 110 MLS/HR; Start 11/19/16 at 15:00; Stop 11/23/16 at 15:59 Enoxaparin Sodium (Lovenox) 80 mg Q12 SC Last administered on 11/21/16 08:18; Admin Dose 80 MG; Start 11/20/16 at 09:00 Allopurinol 100 mg 100 mg DAILY PO Last administered on 11/21/16 08:10; Admin Dose 100 MG; Start 11/21/16 at 09:00 Magnesium Sulfate (Magnesium Sulfate 2 Gm/50 ml) 50 ml @ 25 mls/hr DAILY IVPB Last administered on 11/21/16 16:00; Admin Dose 25 MLS/HR; Start 11/21/16 at 16 :00; Stop 11/22/16 at 11:00 Voriconazole (Vfend) 200 mg BID PO ; Start 11/21/16 at 21:00 KEVIN CHOU Nov 21, 2016 17:38
[2016-11-21] MEDS: VORICONAZOLE 200 MG TAB PO SCH (20:58)
[2016-11-22] VITALS (14 sets, daily range): BP systolic 99–121; BP diastolic 49–59; PULSE 64–85; RESP 16–19
[2016-11-22 06:11] LABS: WHITE BLOOD COUNT 8.9 10^3/ul (4.8-10.8)
[2016-11-22 06:12] LABS: BASOPHILS % 0.4 % (0.0-2.0); EOSINOPHILS # 0.3 10^3/ul (0.0-0.5); EOSINOPHILS % 2.9 % (0.0-7.0); HEMATOCRIT 34.8 % (37.0-47.0); HEMOGLOBIN 10.6 g/dl (12.0-16.0); LYMPHOCYTES # 2.5 10^3/ul (0.8-2.9); LYMPHOCYTES % 28.1 % (15.0-51.0); MEAN CORPUSCULAR HEMOGLOBIN 29.7 pg (29.0-33.0); MEAN CORPUSCULAR HGB CONC 30.5 g/dl (32.0-37.0); MEAN CORPUSCULAR VOLUME 97.5 fl (82.0-101.0); MEAN PLATELET VOLUME 12.5 fl (7.4-10.4); MONOCYTE # 0.6 10^3/ul (0.3-0.9); MONOCYTES % 6.5 % (0.0-11.0); NEUTROPHIL # 5.5 10^3/ul (1.6-7.5); NEUTROPHILS % 61.8 % (39.0-77.0); PLATELET COUNT 204 10^3/UL (140-415); RED BLOOD COUNT 3.57 10^6/ul (4.20-5.40); RED CELL DISTRIBUTION WIDTH 13.7 % (11.5-14.5)
[2016-11-22 06:48] LABS: CALCIUM 8.7 mg/dl (8.4-10.2); CREATININE 0.75 mg/dl (0.44-1.00); POTASSIUM 4.3 mmol/L (3.5-5.1)
[2016-11-22 06:50] LABS: INR 1.07; PROTIME 13.9 Sec (12.2-14.2); PT RATIO 1.1
[2016-11-22 06:51] LABS: PARTIAL THROMBOPLASTIN TIME 46.2 Sec (25.0-35.0)
[2016-11-22] MEDS: INSULIN ASPART [NOVOLOG] 3 ML PEN SC SCH ×3 (07:55→18:06)
[2016-11-22] MEDS: POTASSIUM CHLORIDE (SR) 8 MEQ CAP PO SCH (08:01)
[2016-11-22] MEDS: ESCITALOPRAM 10 MG TAB PO SCH (08:01)
[2016-11-22] MEDS: LINAGLIPTIN 5 MG TABLET PO SCH (08:01)
[2016-11-22] MEDS: predniSONE 10 MG TAB PO SCH (08:01)
[2016-11-22] MEDS: ASPIRIN (EC) 81 MG TAB PO SCH (08:01)
[2016-11-22] MEDS: VORICONAZOLE 200 MG TAB PO SCH ×2 (08:02→20:25)
[2016-11-22] MEDS: TIOTROPIUM 18 MCG CAPSULE INHA DEV INH SCH (08:02)
[2016-11-22] MEDS: ALLOPURINOL 100 MG TAB PO SCH (08:02)
[2016-11-22] MEDS: HYDROCODONE/APAP (10/325) TAB PO SCH ×2 (08:02→15:51)
[2016-11-22] MEDS: FLECAINIDE 100 MG TAB PO SCH ×2 (08:02→20:24)
[2016-11-22] MEDS: GABAPENTIN 300 MG CAP PO SCH (08:02)
[2016-11-22] MEDS: MAGNESIUM SULFATE 2 GM/50 ML 50 ML IVPB SCH (08:03)
[2016-11-22] MEDS: OLOPATADINE 0.1% 5 ML OPH BOTH EYES SCH ×2 (08:04→20:34)
[2016-11-22] MEDS: SALMETEROL/FLUTICASONE 250/50 INHA INH SCH ×2 (08:04→20:33)
[2016-11-22] MEDS: ENOXAPARIN 80 MG/0.8 ML SYG SC SCH ×2 (08:11→20:23)
--- NOTE | 2016-11-22 10:38 | CONS ---
DATE OF ADMISSION: 11/18/2016 DATE OF CONSULTATION: 11/21/2016 TYPE OF CONSULTATION: Infectious Disease. REASON FOR CONSULTATION: Antibiotic management. HISTORY OF PRESENT ILLNESS: Ness Willis is a 76-year-old [place] Stateless female who comes in with weakness and confusion and is being seen for antibiotic management. Her past problems include: 1. Adult-onset diabetes mellitus. 2. Hypertension. 3. Obesity. 4. Coronary artery disease with CHF. 5. Arthritis. 6. Recent urinary tract infection with hospitalization, discharged 2 days ago. The patient present ed with chest pain on 11/18/2016 and also with generalized weakness. She also describes the fact th at she has not been urinating as much as usual. Past problems also include status post cholecystectomy. Anxiety, depression, dyslipidemia. On admission, her white count was 11.8, hemoglobin and hematocrit of 13.2 and 41.8, platelet count 2 38,000. Her BUN and creatinine was 35/2.25. She is a patient of Dr. Ruiz and he notes that a urinary catheter was placed for urinary retention. Today, her white count is 8.2. MICROBIOLOGY: Urine is growing Tamar albicans and Tamar glabrata. She is currently on Vfend 20 0 mg p.o. b.i.d. Her chest x-ray is limited by patient's body habitus, low lung volumes, probable m ild to moderate cardiomegaly, pulmonary vascular congestion, edema or consolidation in the left mid to lower lung zones, moderate aortic calcifications. Renal ultrasound shows 3.4 cm cyst in the infe rior pole of the right kidney. No evidence of hydronephrosis. Bladder obscured by bowel gas. Ultr asound was negative for DVT. PAST MEDICAL HISTORY: Operations as outlined. FAMILY HISTORY: Noncontributory. SOCIAL HISTORY: She does not smoke, drink or abuse drugs. ALLERGIES: NONE TO PENICILLIN, SULFA OR FOODS. MEDICATIONS: Per chart. REVIEW OF SYSTEMS: As per HPI. PHYSICAL EXAMINATION: GENERAL: The patient is a markedly obese female who is awake, responsive, in no acute distress. VITAL SIGNS: Stable. She is afebrile. SKIN: Without generalized rash. HEENT: Within normal limits. NECK: Supple. LYMPH NODES: None palpable. CHEST: Decreased breath sounds at the bases. HEART: Without murmur or gallop. ABDOMEN: Soft, nontender, without organosplenomegaly or masses. EXTREMITIES: Without cyanosis, clubbing, or edema. RECTAL AND GENITAL: Deferred. NEUROLOGIC: No focal neurological abnormalities. IMPRESSION AND PLAN: The patient comes in with urinary tract infection. She has acute kidney injur y on possible chronic renal disease. We are going to continue her on her regimen of Voriconazole, o bserve for progress. I will dictate my findings to Dr. Ruiz and to Dr. Chun Corey. Dictated By: JUANITO MERCER MD, JD/JESUS Conf#: [id number] DID#: [id number]
--- NOTE | 2016-11-22 11:19 | RADRPT ---
PROCEDURE: XR Chest. CLINICAL INDICATION: Shortness of breath. TECHNIQUE: Single frontal view. COMPARISON: 11/18/2016. FINDINGS: There is bilateral interstitial disease consistent with pulmonary edema, worse than seen previously. The lungs are otherwise clear. The heart is enlarged. There is calcification in the aorta consistent with atherosclerosis. There is no pleural effusion. There is no pneumothorax. IMPRESSION: 1. Worsening pulmonary edema. 2. Cardiomegaly and atherosclerosis. RPTAT: QQ .Andrzej Alexandre MD, MD Date Time Electronically viewed and signed by .Andrzej Alexandre MD, MD on 11/22/2016 11:19 .R/
[2016-11-22] MEDS ORDERED: FUROSEMIDE 40 MG INJ IV ONE (13:00)
--- NOTE | 2016-11-22 13:00 | CONS ---
Date/Time of Note Date/Time of Note DATE: 11/22/16 TIME: 12:57 Assessment/Plan Assessment/Plan Chief Complaint/Hosp Course Sinus pauses: in setting of sleep and sleep apnea which is explained by high vagal tone. Only on flecainide and no cory blockers. Would observe for now. No indication for PPM Acute on chronic diastolic heart failure: EF preserved 2016. Now with mild CHF again due to IVF. CXR looks worse Acute renal failure: Likely from overdiuresis. Now resolved H/o unknown cardiac arrhythmia: On flecainide chronically. DM HTN Bedbound state -hold d/c one more day -observe on tele for pauses -lasix 40mg IV x 1, likely 20mg daily at home vs PRN -ASA -flecainide Problems: Consultation Date/Type/Reason Admit Date/Time Nov 18, 2016 at 21:44 Initial Consult Date 11/21/16 Type of Consultation: Cardiology Referring Provider: STONE HERNANDEZ MD 24 HR Interval Summary Free Text/Dictation Had 2 episodes of 3 s pauses last night ~5 am while asleep. Has more SOB. Exam/Review of Systems Vital Signs Vitals Vital Signs Date Time Temp Pulse Resp B/P Pulse Ox O2 Delivery O2 Flow Rate FiO2 11/22/16 12:16 73 11/22/16 11:17 98.2 16 108/51 97 11/21/16 04:30 Nasal Cannula 2.0 11/18/16 20:25 28 Intake and Output 11/21/16 11/21/16 11/22/16 15:00 23:00 07:00 Intake Total 520 ml 1900 ml Balance 520 ml 1900 ml Exam Constitutional: alert, oriented Psych: anxiety Head: atraumatic, normocephalic Neck: No jvd (difficult to examine) Respiratory: crackles/rales, No clear to auscultation Cardiovascular: regular rate and rhythm, No edema, No systolic murmur Gastrointestinal: non-tender, soft Neurological: nl mental status, nl speech Results Result Diagram: 11/22/16 0536 11/22/16 0536 Results 24 hrs Laboratory Tests Test 11/21/16 17:12 11/22/16 05:36 11/22/16 07:40 11/22/16 11:41 Bedside Glucose 223 H 121 194 White Blood Count 8.9 Red Blood Count 3.57 L Hemoglobin 10.6 L Hematocrit 34.8 L Mean Corpuscular Volume 97.5 Mean Corpuscular Hemoglobin 29.7 Mean Corpuscular Hemoglobin Concent 30.5 L Red Cell Distribution Width 13.7 Platelet Count 204 Mean Platelet Volume 12.5 H Neutrophils % 61.8 Lymphocytes % 28.1 Monocytes % 6.5 Eosinophils % 2.9 Basophils % 0.4 Nucleated Red Blood Cells % 0.0 Neutrophils # 5.5 Lymphocytes # 2.5 Monocytes # 0.6 Eosinophils # 0.3 Basophils # 0.0 Nucleated Red Blood Cells # 0.0 Prothrombin Time 13.9 Prothrombin Time Ratio 1.1 INR International Normalized Ratio 1.07 Activated Partial Thromboplast Time 46.2 H Sodium Level 142 Potassium Level 4.3 Chloride Level 110 Carbon Dioxide Level 26 Anion Gap 10 Blood Urea Nitrogen 12 Creatinine 0.75 Glucose Level 112 Calcium Level 8.7 Magnesium Level 2.0 Medications Medications Current Medications Aspirin (Halfprin) 81 mg DAILY PO Last administered on 11/22/16 08:01; Admin Dose 81 MG; Start 11/19/16 at 09:00 Diphenhydramine HCl (Benadryl) 25 mg BID PRN PO ITCHING Last administered on 16:02; Admin Dose 25 MG; Start 11/19/16 at 00:00 Escitalopram Oxalate (Lexapro) 10 mg DAILY PO Last administered on 11/22/16 08 :01; Admin Dose 10 MG; Start 11/19/16 at 09:00 Flecainide Acetate (Tambocor) 150 mg BID PO Last administered on 11/22/16 08: 02; Admin Dose 150 MG; Start 11/19/16 at 09:00 Gabapentin (Neurontin) 300 mg DAILY PO Last administered on 11/22/16 08:02; Admin Dose 300 MG; Start 11/19/16 at 09:00 Linagliptin (Tradjenta) 5 mg DAILY PO Last administered on 11/22/16 08:01; Admin Dose 5 MG; Start 11/19/16 at 09:00 Potassium Chloride (Micro-K) 8 meq DAILY PO Last administered on 11/22/16 08: 01; Admin Dose 8 MEQ; Start 11/19/16 at 09:00 Prednisone (Prednisone) 10 mg DAILY PO Last administered on 11/22/16 08:01; Admin Dose 10 MG; Start 11/19/16 at 09:00 Salmeterol Xinafoate/ Fluticasone (Advair 250/50 Diskus) 1 inh BID INH Last administered on 11/22/16 08:04; Admin Dose 1 INH; Start 11/19/16 at 09:00 Tiotropium [place] (Spiriva) 1 inh DAILY INH Last administered on 11/22/16 08: 02; Admin Dose 1 INH; Start 11/19/16 at 09:00 Olopatadine HCl (Patanol 0.1% Oph) 1 drop BID BOTH EYES Last administered on 08:04; Admin Dose 1 DROP; Start 11/19/16 at 21:00 Acetaminophen/ Hydrocodone Bitart ([place] (10/325)) 1 tab Q8H PO Last administered on 11/22/16 08:02; Admin Dose 1 TAB; Start 11/19/16 at 08:00 Clonidine HCl (Catapres-Tts 1 Patch) 1 patch Q7D TRANSDERM ; Start 11/19/16 at 00:00 Miscellaneous Information 1 ea NOTE XX ; Start 11/19/16 at 00:15 Glucose (Glutose) 15 gm Q15M PRN PO DECREASED GLUCOSE; Start 11/19/16 at 00:15 Glucose (Glutose) 22.5 gm Q15M PRN PO DECREASED GLUCOSE; Start 11/19/16 at 00: 15 Dextrose (D50w Syringe) 25 ml Q15M PRN IV DECREASED GLUCOSE; Start 11/19/16 at 00:15 Dextrose (D50w Syringe) 50 ml Q15M PRN IV DECREASED GLUCOSE; Start 11/19/16 at 00:15 Glucagon (Glucagen) 1 mg Q15M PRN IM DECREASED GLUCOSE; Start 11/19/16 at 00:15 Glucose 15 gm 15 gm Q15M PRN BUCCAL DECREASED GLUCOSE; Start 11/19/16 at 00:15 Ferric Sodium Gluconate Complex/ Sodium Chloride (Ferrlecit/NS) 110 ml @ 110 mls/hr Q24H IVPB Last administered on 11/21/16 16:02; Admin Dose 110 MLS/HR; Start 11/19/16 at 15:00; Stop 11/23/16 at 15:59 Enoxaparin Sodium (Lovenox) 80 mg Q12 SC Last administered on 11/22/16 08:11; Admin Dose 80 MG; Start 11/20/16 at 09:00 Allopurinol (Zyloprim) 100 mg DAILY PO Last administered on 11/22/16 08:02; Admin Dose 100 MG; Start 11/21/16 at 09:00 Voriconazole (Vfend) 200 mg BID PO Last administered on 11/22/16 08:02; Admin Dose 200 MG; Start 11/21/16 at 21:00 KEVIN CHOU Nov 22, 2016 13:00
--- NOTE | 2016-11-22 13:48 | PN ---
DATE: 11/22/2016 SUBJECTIVE: No events overnight. The patient is awake, sitting up in a chair with physical therapy , no fevers. WBC today 8.9, no shift, no bands. BUN 12, creatinine 0.75. DIAGNOSTICS: Chest x-ray this morning revealed worsening pulmonary edema. ANTIMICROBIALS: The patient is on Voriconazole. MICROBIOLOGY: Urine culture on admission grew Tamar albicans and Tamar glabrata. PHYSICAL EXAMINATION: GENERAL: This is a morbidly obese, elderly [place] woman who is alert, in no distress. HEENT: Head atraumatic, normocephalic. Sclerae anicteric. Buccal mucosa pink. NECK: Obese. CHEST: Rise symmetrical. Breath sounds diminished to bases. HEART: S1, S2. ABDOMEN: Soft, bowel tones present. EXTREMITIES: Without cyanosis. Bilateral edema. ASSESSMENT: 1. Urinary tract infection with urine culture growing yeast, patient is on Voriconazole. 2. Resolving encephalopathy. 3. Diabetes. 4. Morbid obesity. 5. Congestive heart failure. 6. Hypertension. PLAN: The patient remains stable on appropriate therapy, continue present care, physical therapy an d follow recommendations of specialists. Dictated By: [employer] for JUANITO ARGUETA/JESUS Conf#: [id number] DID#: [id number]
[2016-11-22] MEDS: SOD FERRIC GLUC COMPLX 125 MG in SOD CHLORIDE 0.9% 100 ML IVPB SCH (15:44)
--- NOTE | 2016-11-22 17:05 | CONS ---
Date/Time of Note Date/Time of Note DATE: 11/22/16 TIME: 17:03 Assessment/Plan Assessment/Plan Additional Assessment/Plan 1. acute Kidney injury on possible CKD due to prerenal azotemia + UTI 2. UTI with urine Cx growing yeast- on voriconazole 2. 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 CHF 4. HTN 5. DM II 6. hyperlipidemia on Zetia 7. Hyperuricemia with uric acid 8.3, no symptoms of gout Plan : Cr improved with IVF hydation, d/c IVF Voriconazole for UTI Cr improved to normal, other electorlytes stable resume lasix today at lower dose allopurinol 100mg po daily for hyperuricemia Renal US showed echogenicity c/w medical renal disease, no size of kidney mentioned in US result will follow up Consultation Date/Type/Reason Admit Date/Time Nov 18, 2016 at 21:44 Initial Consult Date 11/19/16 Type of Consultation: NEPHROLOGY Referring Provider: STONE HERNANDEZ MD Exam/Review of Systems Vital Signs Vitals Vital Signs Date Time Temp Pulse Resp B/P Pulse Ox O2 Delivery O2 Flow Rate FiO2 11/22/16 16:21 71 11/22/16 15:18 98.3 16 109/57 95 11/21/16 04:30 Nasal Cannula 2.0 11/18/16 20:25 28 Intake and Output 11/21/16 11/21/16 11/22/16 15:00 23:00 07:00 Intake Total 520 ml 1900 ml Balance 520 ml 1900 ml Exam Constitutional: alert Respiratory: clear to auscultation, diminished breath sounds, normal air movement Cardiovascular: nl pulses, regular rate and rhythm Gastrointestinal: nl liver, spleen, non-tender, soft Musculoskeletal: nl extremities to inspection Neurological: TRAFFIC EXPERT II-XII intact, nl mental status, nl speech, nl strength Results Result Diagram: 11/22/16 0536 11/22/16 0536 Results 24 hrs Laboratory Tests Test 11/21/16 17:12 11/22/16 05:36 11/22/16 07:40 11/22/16 11:41 Bedside Glucose 223 H 121 194 White Blood Count 8.9 Red Blood Count 3.57 L Hemoglobin 10.6 L Hematocrit 34.8 L Mean Corpuscular Volume 97.5 Mean Corpuscular Hemoglobin 29.7 Mean Corpuscular Hemoglobin Concent 30.5 L Red Cell Distribution Width 13.7 Platelet Count 204 Mean Platelet Volume 12.5 H Neutrophils % 61.8 Lymphocytes % 28.1 Monocytes % 6.5 Eosinophils % 2.9 Basophils % 0.4 Nucleated Red Blood Cells % 0.0 Neutrophils # 5.5 Lymphocytes # 2.5 Monocytes # 0.6 Eosinophils # 0.3 Basophils # 0.0 Nucleated Red Blood Cells # 0.0 Prothrombin Time 13.9 Prothrombin Time Ratio 1.1 INR International Normalized Ratio 1.07 Activated Partial Thromboplast Time 46.2 H Sodium Level 142 Potassium Level 4.3 Chloride Level 110 Carbon Dioxide Level 26 Anion Gap 10 Blood Urea Nitrogen 12 Creatinine 0.75 Glucose Level 112 Calcium Level 8.7 Magnesium Level 2.0 Medications Medications Current Medications Aspirin (Halfprin) 81 mg DAILY PO Last administered on 11/22/16 08:01; Admin Dose 81 MG; Start 11/19/16 at 09:00 Diphenhydramine HCl (Benadryl) 25 mg BID PRN PO ITCHING Last administered on 16:02; Admin Dose 25 MG; Start 11/19/16 at 00:00 Escitalopram Oxalate (Lexapro) 10 mg DAILY PO Last administered on 11/22/16 08 :01; Admin Dose 10 MG; Start 11/19/16 at 09:00 Flecainide Acetate (Tambocor) 150 mg BID PO Last administered on 11/22/16 08: 02; Admin Dose 150 MG; Start 11/19/16 at 09:00 Gabapentin (Neurontin) 300 mg DAILY PO Last administered on 11/22/16 08:02; Admin Dose 300 MG; Start 11/19/16 at 09:00 Linagliptin (Tradjenta) 5 mg DAILY PO Last administered on 11/22/16 08:01; Admin Dose 5 MG; Start 11/19/16 at 09:00 Potassium Chloride (Micro-K) 8 meq DAILY PO Last administered on 11/22/16 08: 01; Admin Dose 8 MEQ; Start 11/19/16 at 09:00 Prednisone (Prednisone) 10 mg DAILY PO Last administered on 11/22/16 08:01; Admin Dose 10 MG; Start 11/19/16 at 09:00 Salmeterol Xinafoate/ Fluticasone (Advair 250/50 Diskus) 1 inh BID INH Last administered on 11/22/16 08:04; Admin Dose 1 INH; Start 11/19/16 at 09:00 Tiotropium [place] (Spiriva) 1 inh DAILY INH Last administered on 11/22/16 08: 02; Admin Dose 1 INH; Start 11/19/16 at 09:00 Olopatadine HCl (Patanol 0.1% Oph) 1 drop BID BOTH EYES Last administered on 08:04; Admin Dose 1 DROP; Start 11/19/16 at 21:00 Acetaminophen/ Hydrocodone Bitart ([place] (10/325)) 1 tab Q8H PO Last administered on 11/22/16 15:51; Admin Dose 1 TAB; Start 11/19/16 at 08:00 Clonidine HCl (Catapres-Tts 1 Patch) 1 patch Q7D TRANSDERM ; Start 11/19/16 at 00:00 Miscellaneous Information 1 ea NOTE XX ; Start 11/19/16 at 00:15 Glucose (Glutose) 15 gm Q15M PRN PO DECREASED GLUCOSE; Start 11/19/16 at 00:15 Glucose (Glutose) 22.5 gm Q15M PRN PO DECREASED GLUCOSE; Start 11/19/16 at 00: 15 Dextrose (D50w Syringe) 25 ml Q15M PRN IV DECREASED GLUCOSE; Start 11/19/16 at 00:15 Dextrose (D50w Syringe) 50 ml Q15M PRN IV DECREASED GLUCOSE; Start 11/19/16 at 00:15 Glucagon (Glucagen) 1 mg Q15M PRN IM DECREASED GLUCOSE; Start 11/19/16 at 00:15 Glucose 15 gm 15 gm Q15M PRN BUCCAL DECREASED GLUCOSE; Start 11/19/16 at 00:15 Ferric Sodium Gluconate Complex/ Sodium Chloride (Ferrlecit/NS) 110 ml @ 110 mls/hr Q24H IVPB Last administered on 11/22/16 15:44; Admin Dose 110 MLS/HR; Start 11/19/16 at 15:00; Stop 11/23/16 at 15:59 Enoxaparin Sodium (Lovenox) 80 mg Q12 SC Last administered on 11/22/16 08:11; Admin Dose 80 MG; Start 11/20/16 at 09:00 Allopurinol (Zyloprim) 100 mg DAILY PO Last administered on 11/22/16 08:02; Admin Dose 100 MG; Start 11/21/16 at 09:00 Voriconazole (Vfend) 200 mg BID PO Last administered on 11/22/16 08:02; Admin Dose 200 MG; Start 11/21/16 at 21:00 JACK VALLE MD Nov 22, 2016 17:05
--- NOTE | 2016-11-22 20:07 | PN ---
Date/Time of Note Date/Time of Note DATE: 11/22/16 TIME: 19:58 Assessment/Plan VTE Prophylaxis VTE Prophylaxis Intervention: ambulation, anti-embolic stocking VTE Contraindication Reason: peripheral vascular disease Lines/Catheters IV Catheter Type (from Nrsg): Peripheral IV Central line still needed: No Urinary Cath still in place: No Reason Cath still needed: urinary retention Assessment/Plan Assessment/Plan 1. Lethargy with hallucinations and being unable to wake up more frequently. Loss of awareness with no recollections of what is happening.. 2. Hematuria x 3 days 3.Low abdominal pain and llq abd pain 4. Congestive heart failure exacerbation with radiologically documented pulmonary edema. With acute elevation of creatinine. 5. History of having palpitations-now bradycardic; lowest rate 45's now 67bpm. 6. History of having bronchial asthma, now stable. 7. Wound of the postsurgical scar, right-sided abdomen, healed. 8. Status post cholecystectomy. 9. Postmenstrual syndrome. 10. Anxiety. 11. Claustrophobia. 12. Dyslipidemia. 13. Diabetes type 2. 14. History of having carbon dioxide retention. 15. Anemia of chronic disease with recent loss. 16. History of chronic kidney disease, improving during previous hospitalization, now got worse. 17. History of having low iron and low magnesium levels with current low levels. 18. Pain syndrome. 19. Major depression. 20. Altered level of consciousness. 21. Diverticulitis. 22. Left-sided chest pain. 23.carbon dioxide narcosis (Hx of) 24.Trophic changes of both legs with change of a color. 25.Pilling of the skin of nailbeds of both hands with deformities and trace of blood and swelling.26. 26.More than 11 years bedridden 27.Decubitus of t he left gluteal area with mild redness of the calcaneal skin 28.Severe deconditioning 29.Daytime sleepiness 30.Severe krupa of knees, hips ans ankle joints 31.Calcaneal pain. 32.Umbilical reducible hernia 4-5cm in diameter.Postsurgical. 33.Chronic norco,percocet, and other controlled substance user. 34.Bradycardia- lowest HR 40's with documented pouse of 3 sec on a monitor. Intermitted second degree type one AVB. 35.Morbid obesity; Obesity hypopnea syndrome,hypercarbia with Pc02 57 36.. Hallucinations, confusion, fear on and off 37.Hypertension, now normotensive. 38.Hx of co2 retention- will recheck. Hold 02; recheck abg in am. Subjective 24 Hr Interval Summary Free Text/Dictation Suddenly I am loosing my awareness. I think my daughter came back. I see her then I am coming to realization that she is not here and she was not here.Suddenly am getting blacked out. Constitutional: chills, diaphoresis, disoriented, improved, No febrile, No no complaints, No other, No poor po, No requiring IVF, No requiring O2 Eyes: pain, No discharge, No no complaints, No other, No redness, No visual change ENT: No bleeding, No congestion, No discharge, No dysphagia, No no complaints, No other, No pain, No sore throat Respiratory: cough, pleuritic pain, shortness of breath, No no complaints, No other, No pain, No sputum, No wheezing Cardiovascular: chest pain, lightheadedness, orthopenea, palpitations, paroxysmal nocturnal dyspnea, No edema, No no complaints, No other Gastrointestinal: constipation, flatus, passing stool, No blood, No decreased appetite, No diarrhea, No nausea, No no complaints, No other, No pain, No vomiting Genitourinary: dysuria, flank pain, No bleeding, No discharge, No hematuria, No no complaints, No other Musculoskeletal: back pain, bone/joint pain, neck pain, other (refused pt after attemting to get her up.), restricted range of motion, No no complaints, No swelling Skin: erythema, pruritis, No bruising, No laceration, No no complaints, No other, No rash, No skin lesions Neurologic: confusion, dizziness, headache, No focal-weakness, No no complaints, No other, No seizure, No syncope Exam/Review of Systems Vital Signs Vitals Vital Signs Date Time Temp Pulse Resp B/P Pulse Ox O2 Delivery O2 Flow Rate FiO2 11/22/16 19:50 98.3 84 19 108/53 94 11/21/16 04:30 Nasal Cannula 2.0 11/18/16 20:25 28 Intake and Output 11/21/16 11/21/16 11/22/16 15:00 23:00 07:00 Intake Total 520 ml 1900 ml Balance 520 ml 1900 ml Exam Constitutional: alert, distress, frail, well developed, No non-verbal, No obese, No oriented, No other Psych: anxiety, confusion, depression, No nl mood/affect, No no complaints, No other, No suicidal Head: No atraumatic, No hematomas, No lacerations, No normocephalic, No other Eyes: EOMI, nl lids, No PERRL, No fundi, disc, No icteric, No nl conjunctiva, No nl sclera, No other ENMT: nl lips & teeth, No intubated, No mucosa pink and moist, No nl external ears & nose, No nl nasal mucosa & septum, No other, No tympanic membranes Neck: bruits, jvd, other, No masses, No non-tender, No nuchal rigidity, No supple, No thyromegaly Respiratory: congested cough, diminished breath sounds, intercostal retraction , No clear to auscultation, No crackles/rales, No labored breathing, No normal air movement, No other, No respirations, No tactile fremitus, No wheezing Cardiovascular: bruits, systolic murmur, No S3, No S4, No diastolic murmur, No edema, No gallop, No irregular rhythm, No jugular venous distention (JVD), No murmurs/extra sounds, No nl pulses, No other, No regular rate and rhythm, No rub Gastrointestinal: firm, nl liver, spleen, other (pannus.), soft, No ascites, No bowel sounds, No distended, No hepatomegaly, No mass, No non- tender, No rebound or guarding, No splenomegaly, No surgical scars, No tender Musculoskeletal: joint tenderness, muscle tone, muscle weakness, No nl extremities to inspection, No nl gait and stance, No other, No range of motion, No spine non-tender, No swelling Extremities: No calf tenderness, No clubbing, No cyanosis, No edema, No normal pulses, No other, No palpable cord, No pitting pedal edema, No tenderness Neurological: confused, other (confusion, visual and auditory hallucinations more frequently.), No JAVA J2EE SOFTWARE ENGINEER II-XII intact, No DTR's symmetric, No focal weakness, No lethargic, No nl mental status, No nl speech, No nl strength, No numbness, No reflexes, No unresponsive Lymph: No enlarged, No nl lymph nodes, No nontender, No other Results Result Diagram: 11/22/16 0536 11/22/16 0536 Results 24 hrs Laboratory Tests Test 11/22/16 05:36 11/22/16 07:40 11/22/16 11:41 11/22/16 17:04 White Blood Count 8.9 Red Blood Count 3.57 L Hemoglobin 10.6 L Hematocrit 34.8 L Mean Corpuscular Volume 97.5 Mean Corpuscular Hemoglobin 29.7 Mean Corpuscular Hemoglobin Concent 30.5 L Red Cell Distribution Width 13.7 Platelet Count 204 Mean Platelet Volume 12.5 H Neutrophils % 61.8 Lymphocytes % 28.1 Monocytes % 6.5 Eosinophils % 2.9 Basophils % 0.4 Nucleated Red Blood Cells % 0.0 Neutrophils # 5.5 Lymphocytes # 2.5 Monocytes # 0.6 Eosinophils # 0.3 Basophils # 0.0 Nucleated Red Blood Cells # 0.0 Prothrombin Time 13.9 Prothrombin Time Ratio 1.1 INR International Normalized Ratio 1.07 Activated Partial Thromboplast Time 46.2 H Sodium Level 142 Potassium Level 4.3 Chloride Level 110 Carbon Dioxide Level 26 Anion Gap 10 Blood Urea Nitrogen 12 Creatinine 0.75 Glucose Level 112 Calcium Level 8.7 Magnesium Level 2.0 Bedside Glucose 121 194 165 Medications Medications Current Medications Aspirin (Halfprin) 81 mg DAILY PO Last administered on 11/22/16 08:01; Admin Dose 81 MG; Start 11/19/16 at 09:00 Diphenhydramine HCl (Benadryl) 25 mg BID PRN PO ITCHING Last administered on 16:02; Admin Dose 25 MG; Start 11/19/16 at 00:00 Escitalopram Oxalate (Lexapro) 10 mg DAILY PO Last administered on 11/22/16 08 :01; Admin Dose 10 MG; Start 11/19/16 at 09:00 Flecainide Acetate (Tambocor) 150 mg BID PO Last administered on 11/22/16 08: 02; Admin Dose 150 MG; Start 11/19/16 at 09:00 Gabapentin (Neurontin) 300 mg DAILY PO Last administered on 11/22/16 08:02; Admin Dose 300 MG; Start 11/19/16 at 09:00 Linagliptin (Tradjenta) 5 mg DAILY PO Last administered on 11/22/16 08:01; Admin Dose 5 MG; Start 11/19/16 at 09:00 Potassium Chloride (Micro-K) 8 meq DAILY PO Last administered on 11/22/16 08: 01; Admin Dose 8 MEQ; Start 11/19/16 at 09:00 Prednisone (Prednisone) 10 mg DAILY PO Last administered on 11/22/16 08:01; Admin Dose 10 MG; Start 11/19/16 at 09:00 Salmeterol Xinafoate/ Fluticasone (Advair 250/50 Diskus) 1 inh BID INH Last administered on 11/22/16 08:04; Admin Dose 1 INH; Start 11/19/16 at 09:00 Tiotropium [place] (Spiriva) 1 inh DAILY INH Last administered on 11/22/16 08: 02; Admin Dose 1 INH; Start 11/19/16 at 09:00 Olopatadine HCl (Patanol 0.1% Oph) 1 drop BID BOTH EYES Last administered on 08:04; Admin Dose 1 DROP; Start 11/19/16 at 21:00 Acetaminophen/ Hydrocodone Bitart ([place] (10/325)) 1 tab Q8H PO Last administered on 11/22/16 15:51; Admin Dose 1 TAB; Start 11/19/16 at 08:00 Clonidine HCl (Catapres-Tts 1 Patch) 1 patch Q7D TRANSDERM ; Start 11/19/16 at 00:00 Miscellaneous Information 1 ea NOTE XX ; Start 11/19/16 at 00:15 Glucose (Glutose) 15 gm Q15M PRN PO DECREASED GLUCOSE; Start 11/19/16 at 00:15 Glucose (Glutose) 22.5 gm Q15M PRN PO DECREASED GLUCOSE; Start 11/19/16 at 00: 15 Dextrose (D50w Syringe) 25 ml Q15M PRN IV DECREASED GLUCOSE; Start 11/19/16 at 00:15 Dextrose (D50w Syringe) 50 ml Q15M PRN IV DECREASED GLUCOSE; Start 11/19/16 at 00:15 Glucagon (Glucagen) 1 mg Q15M PRN IM DECREASED GLUCOSE; Start 11/19/16 at 00:15 Glucose 15 gm 15 gm Q15M PRN BUCCAL DECREASED GLUCOSE; Start 11/19/16 at 00:15 Ferric Sodium Gluconate Complex/ Sodium Chloride (Ferrlecit/NS) 110 ml @ 110 mls/hr Q24H IVPB Last administered on 11/22/16 15:44; Admin Dose 110 MLS/HR; Start 11/19/16 at 15:00; Stop 11/23/16 at 15:59 Enoxaparin Sodium (Lovenox) 80 mg Q12 SC Last administered on 11/22/16 08:11; Admin Dose 80 MG; Start 11/20/16 at 09:00 Allopurinol (Zyloprim) 100 mg DAILY PO Last administered on 11/22/16 08:02; Admin Dose 100 MG; Start 11/21/16 at 09:00 Voriconazole (Vfend) 200 mg BID PO Last administered on 11/22/16 08:02; Admin Dose 200 MG; Start 11/21/16 at 21:00 STONE HERNANDEZ MD Nov 22, 2016 20:07
[2016-11-22] MEDS ORDERED: POLYETHYLENE GLYCOL 17 GM PACKET ONE (20:27)
[2016-11-22] MEDS: POLYETHYLENE GLYCOL 17 GM PACKET PO SCH (20:29)
[2016-11-22] MEDS ORDERED: BISACODYL 10 MG SUPP PR PRN (20:30)
[2016-11-22] MEDS ORDERED: DOCUSATE SODIUM 100 MG CAP PO PRN (20:30)
[2016-11-23] VITALS (9 sets, daily range): BP systolic 112–124; BP diastolic 52–58; PULSE 66–73; RESP 16–22
[2016-11-23] MEDS: HYDROCODONE/APAP (10/325) TAB PO SCH ×3 (00:23→16:04)
--- NOTE | 2016-11-23 00:37 | RADRPT ---
Echocardiogram Report Patient Name: DOMINIQUE MAYER Gender: Female Date: 1940 Study Date: 22-Nov-2016 Wheel Adjuster: [facility] Location: [id number] Ref. Physician: KEVIN VILLEGAS Quality: Good Procedures: Transthoracic echocardiogram with complete 2D, M-Mode, and doppler examination. Indications: Congestive Heart Failure. 2D/M Mode Doppler Measurement Value Normal Ranges Measurement Value Normal Ranges AoR Diam MM 2.8 cm AV Mean Efraín 1.4 m/sec ACS MM 2.0 cm AV Mean PG 8.9 mmHg LA/Ao MM 1.6 AV Peak Efraín 1.9 m/sec LA Dimen MM 4.3 cm AV Peak PG 14.3 mmHg LVIDd 2D 4.6 3.5 - 5.6 cm AV VTI 39.4 cm LVIDs 2D 2.2 2.1 - 4.1 cm AI Peak PG 32.0 mmHg LVPWd 2D 1.2 0.6 - 1.1 cm AI Peak Efraín 2.8 m/sec IVSd 2D 1.2 0.6 - 1.1 cm AI PHT 567.7 msec EDV 2D 98.3 cm3 MV E Peak Efraín 1.4 m/sec ESV 2D 10.5 cm3 MV A Peak Efraín 0.9 m/sec LA Dimen 2D 4.3 2.3 - 4.0 cm MV E/A 1.6 LVOT Diam 2.1 cm MV Decel Time 205 msec MV Decel [place] 7 MV E/A 1.6 TR Peak Efraín 2.8 m/sec TR Peak PG 30.8 mmHg Findings Left Ventricle: Normal left ventricular systolic function. Normal left ventricular cavity size. Mild concentric left ventricular hypertrophy. Ejection fraction is visually estimated at 55 %. Tissue Doppler/Mitral Doppler indices are consistent with impaired relaxation (Stage I diastolic dysfunction). Right Ventricle: Normal right ventricular size. Normal right ventricular systolic function. Left Atrium: There is mild enlargement of left atrium. Right Atrium: There is mild enlargement of right atrium. Mitral Valve: Normal appearance of the mitral valve. Mild mitral valve regurgitation. Aortic Valve: Aortic sclerosis without stenosis. Trace to mild aortic valve regurgitation. Tricuspid Valve: Estimated peak PA systolic pressure 29 mmHg. There is mild tricuspid regurgitation. Pulmonic Valve: Normal pulmonic valve appearance. Pericardium: Normal pericardium with no significant pericardial effusion. Aorta: Normal aortic root. IVC: Normal size and normal respiratory collapse consistent with normal right atrial pressure. Conclusions Normal left ventricular systolic function. Normal left ventricular cavity size. Mild concentric left ventricular hypertrophy. Ejection fraction is visually estimated at 55 %. Tissue Doppler/Mitral Doppler indices are consistent with impaired relaxation (Stage I diastolic dysfunction). Aortic sclerosis without stenosis. Trace to mild aortic valve regurgitation. Estimated peak PA systolic pressure 29 mmHg based on RA pressure of 3 mmHg. Electronically Signed By: Kevin Villegas 23-Nov-2016 00:36:37 -0700 Patient Name: DOMINIQUE MAYER Study Date: 22-Nov-2016 [id number]
--- NOTE | 2016-11-23 07:02 | CONS ---
Date/Time of Note Date/Time of Note DATE: 11/23/16 TIME: 07:00 Assessment/Plan Assessment/Plan Chief Complaint/Hosp Course Sinus pauses: in setting of sleep and sleep apnea which is explained by high vagal tone. Only on flecainide and no cory blockers. Would observe for now. No indication for PPM. No recurrence Acute on chronic diastolic heart failure: EF preserved 2016. Now with mild CHF again due to IVF. Now better Acute renal failure: Likely from overdiuresis. Now resolved H/o unknown cardiac arrhythmia: On flecainide chronically. DM HTN Bedbound state -ok for d/c from my perspective -lasix 20mg PO daily -ASA -flecainide Problems: Consultation Date/Type/Reason Admit Date/Time Nov 18, 2016 at 21:44 Initial Consult Date 11/21/16 Type of Consultation: Cardiology Referring Provider: STONE HERNANDEZ MD 24 HR Interval Summary Free Text/Dictation No o/n events. No bradycardia/pauses. Still with multiple complaints Exam/Review of Systems Vital Signs Vitals Vital Signs Date Time Temp Pulse Resp B/P Pulse Ox O2 Delivery O2 Flow Rate FiO2 11/23/16 06:57 98.1 72 19 124/58 91 11/22/16 21:50 Nasal Cannula 2.0 Intake and Output 11/22/16 11/22/16 11/23/16 15:00 23:00 07:00 Intake Total 680 ml 1650 ml Output Total 550 ml Balance 680 ml 1100 ml Exam Constitutional: alert, oriented Head: atraumatic, normocephalic Neck: No jvd (difficlt to examine ) Respiratory: crackles/rales (mild ), diminished breath sounds, No clear to auscultation Cardiovascular: regular rate and rhythm, No edema, No systolic murmur Gastrointestinal: non-tender, soft Neurological: nl mental status, nl speech Results Result Diagram: 11/22/16 0536 11/22/16 0536 Results 24 hrs Laboratory Tests Test 11/22/16 07:40 11/22/16 11:41 11/22/16 17:04 Bedside Glucose 121 194 165 Medications Medications Current Medications Aspirin (Halfprin) 81 mg DAILY PO Last administered on 11/22/16t 08:01; Admin Dose 81 MG; Start 11/19/16 at 09:00 Diphenhydramine HCl (Benadryl) 25 mg BID PRN PO ITCHING Last administered on 16:02; Admin Dose 25 MG; Start 11/19/16 at 00:00 Escitalopram Oxalate (Lexapro) 10 mg DAILY PO Last administered on 11/22/16 08 :01; Admin Dose 10 MG; Start 11/19/16 at 09:00 Flecainide Acetate (Tambocor) 150 mg BID PO Last administered on 11/22/16 20: 24; Admin Dose 150 MG; Start 11/19/16 at 09:00 Gabapentin (Neurontin) 300 mg DAILY PO Last administered on 11/22/16 08:02; Admin Dose 300 MG; Start 11/19/16 at 09:00 Linagliptin (Tradjenta) 5 mg DAILY PO Last administered on 11/22/16 08:01; Admin Dose 5 MG; Start 11/19/16 at 09:00 Potassium Chloride (Micro-K) 8 meq DAILY PO Last administered on 11/22/16 08: 01; Admin Dose 8 MEQ; Start 11/19/16 at 09:00 Prednisone (Prednisone) 10 mg DAILY PO Last administered on 11/22/16 08:01; Admin Dose 10 MG; Start 11/19/16 at 09:00 Salmeterol Xinafoate/ Fluticasone (Advair 250/50 Diskus) 1 inh BID INH Last administered on 11/22/16 20:33; Admin Dose 1 INH; Start 11/19/16 at 09:00 Tiotropium [place] (Spiriva) 1 inh DAILY INH Last administered on 11/22/16 08: 02; Admin Dose 1 INH; Start 11/19/16 at 09:00 Olopatadine HCl (Patanol 0.1% Oph) 1 drop BID BOTH EYES Last administered on 20:34; Admin Dose 1 DROP; Start 11/19/16 at 21:00 Acetaminophen/ Hydrocodone Bitart ([place] (10/325)) 1 tab Q8H PO Last administered on 11/23/16 00:23; Admin Dose 1 TAB; Start 11/19/16 at 08:00 Clonidine HCl (Catapres-Tts 1 Patch) 1 patch Q7D TRANSDERM ; Start 11/19/16 at 00:00 Miscellaneous Information 1 ea NOTE XX ; Start 11/19/16 at 00:15 Glucose (Glutose) 15 gm Q15M PRN PO DECREASED GLUCOSE; Start 11/19/16 at 00:15 Glucose (Glutose) 22.5 gm Q15M PRN PO DECREASED GLUCOSE; Start 11/19/16 at 00: 15 Dextrose (D50w Syringe) 25 ml Q15M PRN IV DECREASED GLUCOSE; Start 11/19/16 at 00:15 Dextrose (D50w Syringe) 50 ml Q15M PRN IV DECREASED GLUCOSE; Start 11/19/16 at 00:15 Glucagon (Glucagen) 1 mg Q15M PRN IM DECREASED GLUCOSE; Start 11/19/16 at 00:15 Glucose 15 gm 15 gm Q15M PRN BUCCAL DECREASED GLUCOSE; Start 11/19/16 at 00:15 Ferric Sodium Gluconate Complex/ Sodium Chloride (Ferrlecit/NS) 110 ml @ 110 mls/hr Q24H IVPB Last administered on 11/22/16 15:44; Admin Dose 110 MLS/HR; Start 11/19/16 at 15:00; Stop 11/23/16 at 15:59 Enoxaparin Sodium (Lovenox) 80 mg Q12 SC Last administered on 11/22/16 20:23; Admin Dose 80 MG; Start 11/20/16 at 09:00 Allopurinol (Zyloprim) 100 mg DAILY PO Last administered on 11/22/16 08:02; Admin Dose 100 MG; Start 11/21/16 at 09:00 Voriconazole (Vfend) 200 mg BID PO Last administered on 11/22/16 20:25; Admin Dose 200 MG; Start 11/21/16 at 21:00 Polyethylene Glycol (Miralax) 17 gm TID PO Last administered on 11/22/16 20:29 ; Admin Dose 17 GM; Start 11/22/16 at 21:00 Docusate Sodium (Colace) 200 mg BID PRN PO CONSTIPATION Last administered on 22:49; Admin Dose 200 MG; Start 11/22/16 at 20:30 Bisacodyl (Dulcolax Supp) 10 mg DAILY PRN [place] CONSTIPATION; Start 11/22/16 at 20 :30 KEVIN CHOU Nov 23, 2016 07:02
[2016-11-23] MEDS: POTASSIUM CHLORIDE (SR) 8 MEQ CAP PO SCH (08:12)
[2016-11-23] MEDS: ASPIRIN (EC) 81 MG TAB PO SCH (08:12)
[2016-11-23] MEDS: LINAGLIPTIN 5 MG TABLET PO SCH (08:12)
[2016-11-23] MEDS: GABAPENTIN 300 MG CAP PO SCH (08:12)
[2016-11-23] MEDS: ALLOPURINOL 100 MG TAB PO SCH (08:12)
[2016-11-23] MEDS: POLYETHYLENE GLYCOL 17 GM PACKET PO SCH ×2 (08:12→14:00)
[2016-11-23] MEDS: predniSONE 10 MG TAB PO SCH (08:12)
[2016-11-23] MEDS: VORICONAZOLE 200 MG TAB PO SCH (08:12)
[2016-11-23] MEDS: ESCITALOPRAM 10 MG TAB PO SCH (08:12)
[2016-11-23] MEDS: OLOPATADINE 0.1% 5 ML OPH BOTH EYES SCH (08:13)
[2016-11-23] MEDS: FLECAINIDE 100 MG TAB PO SCH (08:13)
[2016-11-23] MEDS: SALMETEROL/FLUTICASONE 250/50 INHA INH SCH (08:13)
[2016-11-23] MEDS: TIOTROPIUM 18 MCG CAPSULE INHA DEV INH SCH (08:13)
[2016-11-23 08:16] LABS: AADO2 Arterial 16.2 mmHg (7.0-24.0); Allen Test ACCEPTAB; Arterial Base Excess 0.3 mmol/L (-3.0-3); Arterial COHb 0.6 % (0.0-3.0); Arterial Fraction of Oxyhgb 93.4 % (93.0-99.0); Arterial HCO3 26.6 mmol/L (22.0-26.0); Arterial MetHb 0.1 % (0.0-1.5); Arterial Total Hemglobin 12.4 g/dl (12.0-18.0); MODE ROOM AIR
[2016-11-23] MEDS: INSULIN ASPART [NOVOLOG] 3 ML PEN SC SCH ×2 (08:22→12:54)
[2016-11-23] MEDS: ENOXAPARIN 80 MG/0.8 ML SYG SC SCH (08:23)
[2016-11-23] MEDS ORDERED: FUROSEMIDE 20 MG TAB PO SCH (09:00)
[2016-11-23] MEDS: SOD FERRIC GLUC COMPLX 125 MG in SOD CHLORIDE 0.9% 100 ML IVPB SCH (14:00)
--- NOTE | 2016-11-23 14:12 | PDOCDIS ---
Discharge Instructions CONDITION Patient Condition: Serious HOME CARE INSTRUCTIONS: Diet Instructions: Low Fat /CholesterolSpecial Diet: carb control ACTIVITY: Activity Restrictions: No Weight Bearing (unable to move.) Bathing Restrictions: Sponge Bath FOLLOW UP/APPOINTMENTS Follow-up Plan by PMD. OTHER ORDERS: Other Orders: cbc and bmp in 7 days. SCHOOL/WORK RELEASE May return to School/Work on: Nov 23, 2016 May return to School/Work with: bed ridden. STONE HERNANDEZ MD Nov 23, 2016 14:12
[2016-11-23] MEDS ORDERED: BISA10SU75 PR (14:16)
[2016-11-23] MEDS ORDERED: DOCU-216 PO (14:16)
[2016-11-23] MEDS ORDERED: VORI200T9 PO (14:16)
--- NOTE | 2016-11-23 14:25 | DS ---
Date/Time of Note Date/Time of Note DATE: 11/23/16 TIME: 14:18 Discharge Summary Admission/Discharge Info Admit Date/Time Nov 18, 2016 at 21:44 Discharge Date/Time 11/23/2016/ 16pm. Discharge Diagnosis 1. Lethargy with hallucinations and being unable to wake up more frequently. Loss of awareness with no recollections of what is happening.Recurrently. 2. Hematuria x 3 days 3.Low abdominal pain and llq abd pain 4. Congestive heart failure exacerbation with radiologically documented pulmonary edema. With acute elevation of creatinine. 5. History of having palpitations-now bradycardic; lowest rate 45's now 67bpm. 6. History of having bronchial asthma, now stable. 7. Wound of the postsurgical scar, right-sided abdomen, healed. 8. Status post cholecystectomy. 9. Postmenstrual syndrome. 10. Anxiety. 11. Claustrophobia. 12. Dyslipidemia. 13. Diabetes type 2. 14. History of having carbon dioxide retention. 15. Anemia of chronic disease with recent loss. 16. History of chronic kidney disease, improving during previous hospitalization, now got worse. 17. History of having low iron and low magnesium levels with current low levels. 18. Pain syndrome. 19. Major depression. 20. Altered level of consciousness. 21. Diverticulitis. 22. Left-sided chest pain. 23.carbon dioxide narcosis (Hx of) 24.Trophic changes of both legs with change of a color. 25.Pilling of the skin of nailbeds of both hands with deformities and trace of blood and swelling.26. 26.More than 11 years bedridden 27.Decubitus of t he left gluteal area with mild redness of the calcaneal skin 28.Severe deconditioning 29.Daytime sleepiness 30.Severe krupa of knees, hips ans ankle joints 31.Calcaneal pain. 32.Umbilical reducible hernia 4-5cm in diameter.Postsurgical. 33.Chronic norco,percocet, and other controlled substance user. 34.Bradycardia- lowest HR 40's with documented pouse of 3 sec on a monitor. Intermitted second degree type one AVB. 35.Morbid obesity; Obesity hypopnea syndrome,hypercarbia with Pc02 57 36.. Hallucinations, confusion, fear on and off 37.Hypertension, now normotensive. 38.Hx of co2 retention- will recheck. Hold 02; recheck abg in am. Patient Condition: Serious Consults Dr.Kalpesh Sr.Koshkaryan Mcallister Hx of Present Illness Continue to have episodes of hallucinations, confusion, loss of awareness , dizziness, constipation, fears with panic attacks. Episode of cardiac pouse 3sec 2 days ago was noteed. 02 saturation above 93 all night, but acording to the nurse she was putting it back. Hospital Course Sinus pauses: in setting of sleep and sleep apnea which is explained by high vagal tone. Only on flecainide and no cory blockers. Would observe for now. No indication for PPM. No recurrence Acute on chronic diastolic heart failure: EF preserved 2016. Now with mild CHF again due to IVF. Now better Acute renal failure: Likely from overdiuresis. Now resolved H/o unknown cardiac arrhythmia: On flecainide chronically. DM HTN Bedbound state -ok for d/c from my perspective -lasix 20mg PO daily -ASA -flecainide Home Meds Active Scripts Docusate Sodium (Dok) 100 Mg Capsule, 200 MG PO BID Y for CONSTIPATION for 14 Days, #30 CAP Prov:STONE HERNANDEZ MD 11/23/16 Bisacodyl* (Bisacodyl*) 10 Mg Supp, 10 MG [place] DAILY Y for CONSTIPATION for 30 Days, #60 SUPP Prov:STONE HERNANDEZ MD 11/23/16 Voriconazole* (Voriconazole*) 200 Mg Tablet, 200 MG PO BID for 14 Days, #10 TAB Prov:STONE HERNANDEZ MD 11/23/16 Reported Medications Sulfamethoxazole/Trimethoprim* (Bactrim Ds* Tablet) 1 Each Tablet, 1 TAB PO BID , TAB TAKE FOR 10 DAYS 11/08/16 Prednisone* (Prednisone*) 10 Mg Tab, 10 MG PO DAILY, TAB TAKE 3TAB FOR 3DAYS, 2TAB FORE 3 DAYS AND 1 TAB DAILY 11/08/16 Icosapent Ethyl (VASCEPA) 1 Gm Capsule, 1 GM PO DAILY, CAP 09/30/16 Olopatadine* (Pataday*) 0.2% - 2.5 Ml Drops, 1 DROP BOTH EYES DAILY, EA 09/30/16 Solifenacin* (Vesicare*) 5 Mg Tablet, 5 MG PO DAILY, TAB 09/30/16 Ezetimibe* (Zetia*) 10 Mg Tablet, 10 MG PO DAILY, TAB 09/30/16 Polyethylene Glycol 3350 (Polyethylene Glycol 3350) 255 Gm Powder, 255 GM PO 09/30/16 Linagliptin (TRADJENTA) 5 Mg Tablet, 5 MG PO DAILY, TAB 09/20/16 Clonidine Hcl* (Clonidine Hcl*) 0.1 Mg Tab, 0.1 MG PO DAILY Y for HTN, TAB 09/20/16 Furosemide* (Furosemide*) 40 Mg Tablet, 40 MG PO DAILY, TAB 09/20/16 Gabapentin* (Gabapentin*) 300 Mg Capsule, 300 MG PO NEEDED, #60 CAP 09/20/16 Potassium Chloride* (Potassium Chloride*) 8 Meq Capsule.er, 8 MEQ PO DAILY, CAP 09/20/16 Hydrocodone/Acetaminophen ([place] 10-325 Tablet) 1 Each Tablet, 1 EACH PO Q8H, TAB 09/20/16 Flecainide Acetate* (Flecainide Acetate*) 150 Mg Tablet, 150 MG PO BID, TAB 09/20/16 Escitalopram Oxalate* (Lexapro*) 10 Mg Tablet, 10 MG PO DAILY, #30 TAB 09/20/16 Diphenhydramine Hcl* (Benadryl*) 25 Mg Cap, 25 MG PO BID Y for ITCHING, CAP 10/21/15 Tiotropium [place]* (Spiriva*) 18 Mcg Cap.w.dev, 1 INH IH DAILY, EA 07/11/14 Metformin* (Glucophage*) 1,000 Mg Tablet, 1000 MG PO BID, TAB 07/11/14 Salmeterol Xinaf/Fluticasone* (Advair*) 250-50 Diskus Inhaler, 1 INH INH BID, INH 07/11/14 Aspirin (Low Dose Aspirin) 81 Mg Tablet.dr, 81 MG PO DAILY 07/11/14 Follow-up Plan by PMD. Primary Care Provider Not On Staff Doctor Pending Labs Laboratory Tests Test 11/22/16 17:04 11/23/16 07:00 11/23/16 07:55 11/23/16 11:45 Bedside Glucose 165mg/dL (70-220) 104mg/dL (70-220) 108mg/dL (70-220) Blood Gas Specimen Source Blood arterial Arterial Blood Date Drawn 11/23/2016 8:05:58 AM Arterial Blood pH (Temp corrected) 7.344 (7.350-7.450) Arterial Blood pCO2 (Temp correct) 50.0mmhg (35-45) Arterial Blood pO2 (Temp corrected) 73.7mmHG (80-90.0) Arterial Blood HCO3 26.6mmol/L (22.0-26.0) Arterial Blood Base Excess 0.3mmol/L (-3.0-3) Arterial Blood Oxygen Saturation 94.1mmHG (95.0-100.0) Erasmo Test ACCEPTAB Arterial Blood Gas Puncture Site Right Radial Arterial Blood Carboxyhemoglobin 0.6% (0.0-3.0) Arterial Blood Methemoglobin 0.1% (0.0-1.5) Blood Gas A-a O2 Differential 16.2mmHg (7.0-24.0) Oxyhemoglobin Percent 93.4% (93.0-99.0) Total Hemoglobin 12.4g/dl (12.0-18.0) Blood Gas Temperature 37.0C Blood Gas Modality ROOM AIR FiO2 21.0% Blood Gas Notified Whom Blood Gas Notified Time 11/23/2016 8:16:13 AM STONE HERNANDEZ MD Nov 23, 2016 14:25
--- NOTE | 2016-11-23 15:08 | CONS ---
Date/Time of Note Date/Time of Note DATE: 11/23/16 TIME: 15:06 Consult Date/Type/Reason Admit Date/Time Nov 18, 2016 at 21:44 Initial Consult Date 11/21/16 Type of Consultation: ID Ordering Provider: STONE HERNANDEZ MD Objective Vital Signs Date Time Temp Pulse Resp B/P Pulse Ox O2 Delivery O2 Flow Rate FiO2 11/23/16 12:51 98.4 72 22 121/58 100 11/22/16 21:50 Nasal Cannula 2.0 Intake and Output 11/22/16 11/22/16 11/23/16 15:00 23:00 07:00 Intake Total 680 ml 1650 ml Output Total 550 ml Balance 680 ml 1100 ml Results/Medications Result Diagram: 11/22/16 0536 11/22/16 0536 Results 24 hrs Laboratory Tests Test 11/22/16 17:04 11/23/16 07:00 11/23/16 07:55 11/23/16 11:45 Bedside Glucose 165 104 108 Blood Gas Specimen Source Blood arterial Arterial Blood Date Drawn 11/23/2016 8:05:58 AM Arterial Blood pH (Temp corrected) 7.344 L Arterial Blood pCO2 (Temp correct) 50.0 H Arterial Blood pO2 (Temp corrected) 73.7 L Arterial Blood HCO3 26.6 H Arterial Blood Base Excess 0.3 Arterial Blood Oxygen Saturation 94.1 L Erasmo Test ACCEPTAB Arterial Blood Gas Puncture Site Right Radial Arterial Blood Carboxyhemoglobin 0.6 Arterial Blood Methemoglobin 0.1 Blood Gas A-a O2 Differential 16.2 Oxyhemoglobin Percent 93.4 Total Hemoglobin 12.4 Blood Gas Temperature 37.0 Blood Gas Modality ROOM AIR FiO2 21.0 Blood Gas Notified Whom Blood Gas Notified Time 11/23/2016 8:16:13 AM Medications Current Medications Aspirin (Halfprin) 81 mg DAILY PO Last administered on 11/23/16 08:12; Admin Dose 81 MG; Start 11/19/16 at 09:00 Diphenhydramine HCl (Benadryl) 25 mg BID PRN PO ITCHING Last administered on 16:02; Admin Dose 25 MG; Start 11/19/16 at 00:00 Escitalopram Oxalate (Lexapro) 10 mg DAILY PO Last administered on 11/23/16 08:12; Admin Dose 10 MG; Start 11/19/16 at 09:00 Flecainide Acetate (Tambocor) 150 mg BID PO Last administered on 11/23/16 08: 13; Admin Dose 150 MG; Start 11/19/16 at 09:00 Gabapentin (Neurontin) 300 mg DAILY PO Last administered on 11/23/16 08:12; Admin Dose 300 MG; Start 11/19/16 at 09:00 Linagliptin (Tradjenta) 5 mg DAILY PO Last administered on 11/23/16 08:12; Admin Dose 5 MG; Start 11/19/16 at 09:00 Potassium Chloride (Micro-K) 8 meq DAILY PO Last administered on 11/23/16 08: 12; Admin Dose 8 MEQ; Start 11/19/16 at 09:00 Prednisone (Prednisone) 10 mg DAILY PO Last administered on 11/23/16 08:12; Admin Dose 10 MG; Start 11/19/16 at 09:00 Salmeterol Xinafoate/ Fluticasone (Advair 250/50 Diskus) 1 inh BID INH Last administered on 11/23/16 08:13; Admin Dose 1 INH; Start 11/19/16 at 09:00 Tiotropium [place] (Spiriva) 1 inh DAILY INH Last administered on 11/23/16 08 :13; Admin Dose 1 INH; Start 11/19/16 at 09:00 Olopatadine HCl (Patanol 0.1% Oph) 1 drop BID BOTH EYES Last administered on 08:13; Admin Dose 1 DROP; Start 11/19/16 at 21:00 Acetaminophen/ Hydrocodone Bitart ([place] (10/325)) 1 tab Q8H PO Last administered on 11/23/16 08:11; Admin Dose 1 TAB; Start 11/19/16 at 08:00 Clonidine HCl (Catapres-Tts 1 Patch) 1 patch Q7D TRANSDERM ; Start 11/19/16 at 00:00 Miscellaneous Information 1 ea NOTE XX ; Start 11/19/16 at 00:15 Glucose (Glutose) 15 gm Q15M PRN PO DECREASED GLUCOSE; Start 11/19/16 at 00:15 Glucose (Glutose) 22.5 gm Q15M PRN PO DECREASED GLUCOSE; Start 11/19/16 at 00: 15 Dextrose (D50w Syringe) 25 ml Q15M PRN IV DECREASED GLUCOSE; Start 11/19/16 at 00:15 Dextrose (D50w Syringe) 50 ml Q15M PRN IV DECREASED GLUCOSE; Start 11/19/16 at 00:15 Glucagon (Glucagen) 1 mg Q15M PRN IM DECREASED GLUCOSE; Start 11/19/16 at 00:15 Glucose 15 gm 15 gm Q15M PRN BUCCAL DECREASED GLUCOSE; Start 11/19/16 at 00:15 Ferric Sodium Gluconate Complex/ Sodium Chloride (Ferrlecit/NS) 110 ml @ 110 mls/hr Q24H IVPB Last administered on 11/23/16 14:00; Admin Dose 110 MLS/HR; Start 11/19/16 at 15:00; Stop 11/23/16 at 15:59 Enoxaparin Sodium (Lovenox) 80 mg Q12 SC Last administered on 11/23/16 08:23 ; Admin Dose 80 MG; Start 11/20/16 at 09:00 Allopurinol (Zyloprim) 100 mg DAILY PO Last administered on 11/23/16 08:12; Admin Dose 100 MG; Start 11/21/16 at 09:00 Voriconazole (Vfend) 200 mg BID PO Last administered on 11/23/16 08:12; Admin Dose 200 MG; Start 11/21/16 at 21:00 Polyethylene Glycol (Miralax) 17 gm TID PO Last administered on 11/23/16 14: 00; Admin Dose 17 GM; Start 11/22/16 at 21:00 Docusate Sodium (Colace) 200 mg BID PRN PO CONSTIPATION Last administered on 22:49; Admin Dose 200 MG; Start 11/22/16 at 20:30 Bisacodyl (Dulcolax Supp) 10 mg DAILY PRN [place] CONSTIPATION; Start 11/22/16 at 20 :30 Furosemide (Lasix) 20 mg DAILY PO Last administered on 11/23/16 08:12; Admin Dose 20 MG; Start 11/23/16 at 09:00 Assessment/Plan Chief Complaint/Hosp Course SUBJECTIVE: No events overnight. The patient is sleeping, no fevers. ANTIMICROBIALS: The patient is on Voriconazole. MICROBIOLOGY: Urine culture on admission grew Tamar albicans and Tamar glabrata. PHYSICAL EXAMINATION: GENERAL: This is a morbidly obese, elderly [place] woman who is alert, in no distress. HEENT: Head atraumatic, normocephalic. Sclerae anicteric. Buccal mucosa pink. NECK: Obese. CHEST: Rise symmetrical. Breath sounds diminished to bases. HEART: S1, S2. ABDOMEN: Soft, bowel tones present. EXTREMITIES: Without cyanosis. Bilateral edema. ASSESSMENT: 1. Urinary tract infection with urine culture growing yeast, patient is on Voriconazole. 2. Resolving encephalopathy. 3. Diabetes. 4. Morbid obesity. 5. Congestive heart failure. 6. Hypertension. PLAN: The patient remains stable, continue Vfend for 5 more days DW staff Problems: E[place] NP Nov 23, 2016 15:07
--- NOTE | 2016-11-23 17:30 | CONS ---
Date/Time of Note Date/Time of Note DATE: 11/23/16 TIME: 17:29 Assessment/Plan Assessment/Plan Additional Assessment/Plan 1. acute Kidney injury on possible CKD due to prerenal azotemia + UTI 2. UTI with urine Cx growing yeast- on voriconazole 2. 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 CHF 4. HTN 5. DM II 6. hyperlipidemia on Zetia 7. Hyperuricemia with uric acid 8.3, no symptoms of gout Plan : Cr improved with IVF hydation, d/c IVF Voriconazole for UTI Cr improved to normal, other electorlytes stable resume lasix today at lower dose allopurinol 100mg po daily for hyperuricemia Renal US showed echogenicity c/w medical renal disease, no size of kidney mentioned in US result plan for d/c home today Consultation Date/Type/Reason Admit Date/Time Nov 18, 2016 at 21:44 Initial Consult Date 11/19/16 Type of Consultation: NEPHROLOGY Referring Provider: STONE HERNANDEZ MD 24 HR Interval Summary Free Text/Dictation doing better, plan for d/c home today, afebrile, BP stable Exam/Review of Systems Vital Signs Vitals Vital Signs Date Time Temp Pulse Resp B/P Pulse Ox O2 Delivery O2 Flow Rate FiO2 11/23/16 16:00 69 11/23/16 15:39 98.4 16 116/57 94 11/22/16 21:50 Nasal Cannula 2.0 Intake and Output 11/22/16 11/22/16 11/23/16 15:00 23:00 07:00 Intake Total 680 ml 1650 ml Output Total 550 ml Balance 680 ml 1100 ml Exam Constitutional: alert Respiratory: clear to auscultation, diminished breath sounds, normal air movement Cardiovascular: nl pulses, regular rate and rhythm Gastrointestinal: nl liver, spleen, non-tender, soft Musculoskeletal: nl extremities to inspection Neurological: 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 SPECIALIST II-XII intact, nl mental status, nl speech, nl strength Results Result Diagram: 11/22/16 0536 11/22/16 0536 Results 24 hrs Laboratory Tests Test 11/23/16 07:00 11/23/16 07:55 11/23/16 11:45 11/23/16 16:55 Blood Gas Specimen Source Blood arterial Arterial Blood Date Drawn 11/23/2016 8:05:58 AM Arterial Blood pH (Temp corrected) 7.344 L Arterial Blood pCO2 (Temp correct) 50.0 H Arterial Blood pO2 (Temp corrected) 73.7 L Arterial Blood HCO3 26.6 H Arterial Blood Base Excess 0.3 Arterial Blood Oxygen Saturation 94.1 L Erasmo Test ACCEPTAB Arterial Blood Gas Puncture Site Right Radial Arterial Blood Carboxyhemoglobin 0.6 Arterial Blood Methemoglobin 0.1 Blood Gas A-a O2 Differential 16.2 Oxyhemoglobin Percent 93.4 Total Hemoglobin 12.4 Blood Gas Temperature 37.0 Blood Gas Modality ROOM AIR FiO2 21.0 Blood Gas Notified Whom jm Blood Gas Notified Time 11/23/2016 8:16:13 AM Bedside Glucose 104 108 170 Medications Medications Current Medications Aspirin (Halfprin) 81 mg DAILY PO Last administered on 11/23/16 08:12; Admin Dose 81 MG; Start 11/19/16 at 09:00 Diphenhydramine HCl (Benadryl) 25 mg BID PRN PO ITCHING Last administered on 16:02; Admin Dose 25 MG; Start 11/19/16 at 00:00 Escitalopram Oxalate (Lexapro) 10 mg DAILY PO Last administered on 11/23/16 08:12; Admin Dose 10 MG; Start 11/19/16 at 09:00 Flecainide Acetate (Tambocor) 150 mg BID PO Last administered on 11/23/16 08: 13; Admin Dose 150 MG; Start 11/19/16 at 09:00 Gabapentin (Neurontin) 300 mg DAILY PO Last administered on 11/23/16 08:12; Admin Dose 300 MG; Start 11/19/16 at 09:00 Linagliptin (Tradjenta) 5 mg DAILY PO Last administered on 11/23/16 08:12; Admin Dose 5 MG; Start 11/19/16 at 09:00 Potassium Chloride (Micro-K) 8 meq DAILY PO Last administered on 11/23/16 08: 12; Admin Dose 8 MEQ; Start 11/19/16 at 09:00 Prednisone (Prednisone) 10 mg DAILY PO Last administered on 11/23/16 08:12; Admin Dose 10 MG; Start 11/19/16 at 09:00 Salmeterol Xinafoate/ Fluticasone (Advair 250/50 Diskus) 1 inh BID INH Last administered on 11/23/16 08:13; Admin Dose 1 INH; Start 11/19/16 at 09:00 Tiotropium [place] (Spiriva) 1 inh DAILY INH Last administered on 11/23/16 08 :13; Admin Dose 1 INH; Start 11/19/16 at 09:00 Olopatadine HCl (Patanol 0.1% Oph) 1 drop BID BOTH EYES Last administered on 08:13; Admin Dose 1 DROP; Start 11/19/16 at 21:00 Acetaminophen/ Hydrocodone Bitart ([place] (10/325)) 1 tab Q8H PO Last administered on 11/23/16 16:04; Admin Dose 1 TAB; Start 11/19/16 at 08:00 Clonidine HCl (Catapres-Tts 1 Patch) 1 patch Q7D TRANSDERM ; Start 11/19/16 at 00:00 Miscellaneous Information 1 ea NOTE XX ; Start 11/19/16 at 00:15 Glucose (Glutose) 15 gm Q15M PRN PO DECREASED GLUCOSE; Start 11/19/16 at 00:15 Glucose (Glutose) 22.5 gm Q15M PRN PO DECREASED GLUCOSE; Start 11/19/16 at 00: 15 Dextrose (D50w Syringe) 25 ml Q15M PRN IV DECREASED GLUCOSE; Start 11/19/16 at 00:15 Dextrose (D50w Syringe) 50 ml Q15M PRN IV DECREASED GLUCOSE; Start 11/19/16 at 00:15 Glucagon (Glucagen) 1 mg Q15M PRN IM DECREASED GLUCOSE; Start 11/19/16 at 00:15 Glucose (Glutose) 15 gm Q15M PRN BUCCAL DECREASED GLUCOSE; Start 11/19/16 at 00 :15 Enoxaparin Sodium (Lovenox) 80 mg Q12 SC Last administered on 11/23/16 08:23 ; Admin Dose 80 MG; Start 11/20/16 at 09:00 Allopurinol (Zyloprim) 100 mg DAILY PO Last administered on 11/23/16 08:12; Admin Dose 100 MG; Start 11/21/16 at 09:00 Voriconazole (Vfend) 200 mg BID PO Last administered on 11/23/16 08:12; Admin Dose 200 MG; Start 11/21/16 at 21:00 Polyethylene Glycol (Miralax) 17 gm TID PO Last administered on 11/23/16 14: 00; Admin Dose 17 GM; Start 11/22/16 at 21:00 Docusate Sodium (Colace) 200 mg BID PRN PO CONSTIPATION Last administered on 22:49; Admin Dose 200 MG; Start 11/22/16 at 20:30 Bisacodyl (Dulcolax Supp) 10 mg DAILY PRN MD CONSTIPATION; Start 11/22/16 at 20 :30 Furosemide (Lasix) 20 mg DAILY PO Last administered on 11/23/16 08:12; Admin Dose 20 MG; Start 11/23/16 at 09:00 JACK VALLE MD Nov 23, 2016 17:30
== END 2016-11-23 17:35 | disposition home or self-care (01) | DRG 291 ==
LOC: E/R 19:00 → TEL 21:44
PROVIDERS: ADMIT Family Medicine; ATTEND Family Medicine
DX: I13.0 Hypertensive heart and chronic kidney disease with heart failure and stage 1 through stage 4 chronic kidney disease, or unspecified chronic kidney disease (principal); I50.33 Acute on chronic diastolic (congestive) heart failure; G93.41 Metabolic encephalopathy; N17.9 Acute kidney failure, unspecified; L89.329 Pressure ulcer of left buttock, unspecified stage; E11.22 Type 2 diabetes mellitus with diabetic chronic kidney disease; D63.8 Anemia in other chronic diseases classified elsewhere; R00.1 Bradycardia, unspecified; N18.3 Chronic kidney disease, stage 3 (moderate); B37.49 Other urogenital candidiasis; Z68.43 Body mass index [BMI] 50.0-59.9, adult; R44.3 Hallucinations, unspecified; E66.01 Morbid (severe) obesity due to excess calories; Z71.3 Dietary counseling and surveillance; E78.5 Hyperlipidemia, unspecified; F41.9 Anxiety disorder, unspecified; F40.240 Claustrophobia; Z74.01 Bed confinement status; K42.9 Umbilical hernia without obstruction or gangrene; Z79.891 Long term (current) use of opiate analgesic; F32.9 Major depressive disorder, single episode, unspecified; M19.072 Primary osteoarthritis, left ankle and foot; M19.071 Primary osteoarthritis, right ankle and foot; M16.0 Bilateral primary osteoarthritis of hip; M17.0 Bilateral primary osteoarthritis of knee; I25.119 Atherosclerotic heart disease of native coronary artery with unspecified angina pectoris; Z87.11 Personal history of peptic ulcer disease; K21.9 Gastro-esophageal reflux disease without esophagitis; N95.9 Unspecified menopausal and perimenopausal disorder; E79.0 Hyperuricemia without signs of inflammatory arthritis and tophaceous disease; J45.909 Unspecified asthma, uncomplicated
CPT/HCPCS: 36415; 36600; 71010; 76775; 80048; 80053; 81001; 81003; 82550; 82553; 82570; 82803; 82962; 83540; 83735; 83880; 84300; 84443; 84484; 84560; 85025; 85378; 85610; 85730; 87086; 89190; 90686; 93005; 93306; 93970; 94762; 97162; J1815; J1940; J2916; J3475; J7030; J7512

== ENCOUNTER 2016-12-21 13:36 | Inpatient (IN) | payer MEDICARE, OTHER ==
[~2016-12-21] VITALS: Ht 160 cm; Wt 159.0 kg
[~2016-12-21 13:36] MED LIST changes: +BISA10SU75 PR; +DOCU-216 PO; +VORI200T9 PO
[2016-12-21] MEDS ORDERED: ASPIRIN 325 MG TAB PO STA (14:13)
[2016-12-21] MEDS ORDERED: NITROGLYCERIN 2% 1 GM OINT PKT TD STA (14:13)
[2016-12-21] MEDS ORDERED: CEFTRIAXONE 1 GM/50 ML (PMX) 50 ML IVPB STA (14:20)
[2016-12-21] MEDS ORDERED: AZITHROMYCIN 500MG/NS (PMX) 250 ML IV STA (14:20)
[2016-12-21] MEDS ORDERED: ALBUTEROL 0.083% (NEB) 2.5 MG/3 ML AMP INH ONE (14:30)
[2016-12-21 14:35] LABS: BASOPHILS % 0.3 % (0.0-2.0); EOSINOPHILS # 0.2 10^3/ul (0.0-0.5); EOSINOPHILS % 1.6 % (0.0-7.0); HEMATOCRIT 38.2 % (37.0-47.0); HEMOGLOBIN 11.5 g/dl (12.0-16.0); LYMPHOCYTES # 2.6 10^3/ul (0.8-2.9); MEAN CORPUSCULAR HEMOGLOBIN 30.3 pg (29.0-33.0); MEAN CORPUSCULAR HGB CONC 30.1 g/dl (32.0-37.0); MEAN CORPUSCULAR VOLUME 100.5 fl (82.0-101.0); MEAN PLATELET VOLUME 12.5 fl (7.4-10.4); MONOCYTES % 7.8 % (0.0-11.0); NEUTROPHIL # 8.5 10^3/ul (1.6-7.5); NEUTROPHILS % 68.7 % (39.0-77.0); PLATELET COUNT 270 10^3/UL (140-415); WHITE BLOOD COUNT 12.5 10^3/ul (4.8-10.8)
--- NOTE | 2016-12-21 14:45 | RADRPT ---
PROCEDURE: XR Chest. CLINICAL INDICATION: Chest pain. TECHNIQUE: Single frontal view. COMPARISON: 11/22/2016. FINDINGS: There is bilateral interstitial pulmonary edema, worse than seen previously. Air space disease is pr esent in the left mid and lower lung zones consistent with atelectasis or pneumonia, worse than seen previously. The heart is enlarged. There is calcification in the aorta consistent with atherosclerosis. There is no pleural effusion. There is no pneumothorax. IMPRESSION: 1. Worse pulmonary edema and worse appearance of the left mid and lower lung zones consistent with atelectasis or pneumonia. 2. Cardiomegaly and atherosclerosis. 3. Otherwise unremarkable chest radiograph. RPTAT: QQ .Andrzej Alexandre MD, MD Date Time Electronically viewed and signed by .Andrzej Alexandre MD, MD on 12/21/2016 14:45 .R/
[2016-12-21 14:55] LABS: ALANINE AMINOTRANSFERASE 13 IU/L (13-69); ALBUMIN 3.8 g/dl (3.3-4.9); ALBUMIN/GLOBULIN RATIO 1.08; ALKALINE PHOSPHATASE 87 IU/L (42-121); ANION GAP 16 (8-16); ASPARTATE AMINO TRANSFERASE 15 IU/L (15-46); BLOOD UREA NITROGEN 21 mg/dl (7-20); CARBON DIOXIDE 24 mmol/L (21-31); CHLORIDE 107 mmol/L (97-110); CREATININE 0.99 mg/dl (0.44-1.00); GLUCOSE 149 mg/dl (70-220); POTASSIUM 4.3 mmol/L (3.5-5.1); SODIUM 143 mmol/L (135-144); TOTAL PROTEIN 7.3 g/dl (6.1-8.1)
[2016-12-21 15:07] LABS: B-TYPE NATRIURETIC PEPTIDE 1770 PG/ML (0-450)
[2016-12-21 15:08] LABS: TROPONIN-I < 0.012 ng/ml (0.00-0.12)
[2016-12-21] MEDS ORDERED: HYDROmorphONE 1 MG/ML SYG IV STA (16:44)
[2016-12-21] MEDS ORDERED: ONDANSETRON 4 MG INJ IV STA (16:44)
[2016-12-21] MEDS ORDERED: FUROSEMIDE 40 MG INJ IV ONE (17:00)
[2016-12-21 17:05] LABS: ADD UMIC YES; UR ASCORBIC ACID NEGATIVE (NEGATIVE); UR BACTERIA FEW /HPF (NONE SEEN); UR BILIRUBIN (Dip) NEGATIVE (NEGATIVE); UR BLOOD (Dip) NEGATIVE (NEGATIVE); UR CLARITY SLIGHTLY CLOUDY (CLEAR); UR COLOR YELLOW (YELLOW); UR GLUCOSE (Dip) NEGATIVE (NEGATIVE); UR KETONES (Dip) NEGATIVE (NEGATIVE); UR LEUKOCYTE ESTERASE (Dip) 1+ Leu/ul (NEGATIVE); UR MUCUS FEW /HPF (NONE SEEN); UR NITRITE (Dip) POSITIVE (NEGATIVE); UR RBC 1 /HPF (0-5); UR SPECIFIC GRAVITY (Dip) 1.025 (1.003-1.030); UR SQUAMOUS EPITHELIAL CELL FEW /HPF (FEW); UR TOTAL PROTEIN (Dip) 1+ mg/dl (NEGATIVE); UR UROBILINOGEN (Dip) NEGATIVE (NEGATIVE)
--- NOTE | 2016-12-21 17:13 | ERD ---
ER Documentation Chief Complaint Chief Complaint CHEST PAIN FOR 2 DAYS WITH MILD SOB. NO TRAUMA. 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 She is complaining of cough for the past 3 or 4 days a yellow productive sputum but does not know she has had any fever. She is also complaining of shortness of breath when she walks and some at rest. She is also having chest pain is vague and off and on she is a very bad historian. No diaphoresis noted abdominal pain vomiting diarrhea the patient is morbidly obese. ROS All systems reviewed and are negative except as per history of present illness. Medications Home Meds Active Scripts Docusate Sodium (Dok) 100 Mg Capsule, 200 MG PO BID Y for CONSTIPATION for 14 Days, #30 CAP Prov:STONE HERNANDEZ MD 11/23/16 Bisacodyl* (Bisacodyl*) 10 Mg Supp, 10 MG SD DAILY Y for CONSTIPATION for 30 Days, #60 SUPP Prov:STONE HERNANDEZ MD 11/23/16 Voriconazole* (Voriconazole*) 200 Mg Tablet, 200 MG PO BID for 14 Days, #10 TAB Prov:STONE HERNANDEZ MD 11/23/16 Reported Medications Sulfamethoxazole/Trimethoprim* (Bactrim Ds* Tablet) 1 Each Tablet, 1 TAB PO BID , TAB TAKE FOR 10 DAYS 11/08/16 Prednisone* (Prednisone*) 10 Mg Tab, 10 MG PO DAILY, TAB TAKE 3TAB FOR 3DAYS, 2TAB FORE 3 DAYS AND 1 TAB DAILY 11/08/16 Icosapent Ethyl (VASCEPA) 1 Gm Capsule, 1 GM PO DAILY, CAP 09/30/16 Olopatadine* (Pataday*) 0.2% - 2.5 Ml Drops, 1 DROP BOTH EYES DAILY, EA 09/30/16 Solifenacin* (Vesicare*) 5 Mg Tablet, 5 MG PO DAILY, TAB 09/30/16 Ezetimibe* (Zetia*) 10 Mg Tablet, 10 MG PO DAILY, TAB 09/30/16 Polyethylene Glycol 3350 (Polyethylene Glycol 3350) 255 Gm Powder, 255 GM PO 09/30/16 Linagliptin (TRADJENTA) 5 Mg Tablet, 5 MG PO DAILY, TAB 09/20/16 Clonidine Hcl* (Clonidine Hcl*) 0.1 Mg Tab, 0.1 MG PO DAILY Y for HTN, TAB 09/20/16 Furosemide* (Furosemide*) 40 Mg Tablet, 40 MG PO DAILY, TAB 09/20/16 Gabapentin* (Gabapentin*) 300 Mg Capsule, 300 MG PO NEEDED, #60 CAP 09/20/16 Potassium Chloride* (Potassium Chloride*) 8 Meq Capsule.er, 8 MEQ PO DAILY, CAP 09/20/16 Hydrocodone/Acetaminophen ([place] 10-325 Tablet) 1 Each Tablet, 1 EACH PO Q8H, TAB 09/20/16 Flecainide Acetate* (Flecainide Acetate*) 150 Mg Tablet, 150 MG PO BID, TAB 09/20/16 Escitalopram Oxalate* (Lexapro*) 10 Mg Tablet, 10 MG PO DAILY, #30 TAB 09/20/16 Diphenhydramine Hcl* (Benadryl*) 25 Mg Cap, 25 MG PO BID Y for ITCHING, CAP 10/21/15 Tiotropium [place]* (Spiriva*) 18 Mcg Cap.w.dev, 1 INH IH DAILY, EA 07/11/14 Metformin* (Glucophage*) 1,000 Mg Tablet, 1000 MG PO BID, TAB 07/11/14 Salmeterol Xinaf/Fluticasone* (Advair*) 250-50 Diskus Inhaler, 1 INH INH BID, INH 07/11/14 Aspirin (Low Dose Aspirin) 81 Mg Tablet.dr, 81 MG PO DAILY 07/11/14 Allergies Allergies: Coded Allergies: No Known Allergy (Unverified , 12/21/16) PMhx/Soc History of Surgery: Yes Anesthesia Reaction: No Hx Neurological Disorder: No Hx Respiratory Disorders: Yes Hx Cardiac Disorders: Yes (CHF) Hx Psychiatric Problems: No Hx Miscellaneous Medical Probl: Yes (MORBIDLY OBESE) Hx Alcohol Use: No Hx Substance Use: No Hx Tobacco Use: No Smoking Status: Never smoker FmHx Family History: No coronary disease Physical Exam Vitals Vital Signs Date Time Temp Pulse Resp B/P Pulse Ox O2 Delivery O2 Flow Rate FiO2 12/21/16 15:54 2.0 12/21/16 15:52 79 20 97 Nasal Cannula 2.0 12/21/16 13:56 98.1 66 22 144/59 97 Physical Exam Const: Well-developed, well-nourished, morbidly obese Head: Atraumatic, normocephalic Eyes: Normal Conjunctiva, PERRLA, EOMI, normal sclera, no nystagmus ENT: Normal External Ears, Nose and Mouth, moist mucus membranes. Neck: Full range of motion. No meningismus, no lymphadenopathy. Resp: Bilateral diffuse rhonchi Cardio: Regular rate and rhythm, no murmurs, S1 S2 present Abd: Soft, non tender x 4, non distended. Normal bowel sounds, no guarding or rebound, no pulsitile abdominal masses or bruits Skin: No petechiae or rashes, no ecchymosis , no maculopapular rash Back: No midline or flank tenderness Ext: No cyanosis, or edema, FROM x 4, normal inspection, neurovascularly intact x 4 Neur: Awake and alert, STR 5/5 x 4, sensation intact x 4, no focal findings, cerebellum intact Psych: Normal Mood and Affect Result Diagram: 12/21/16 1425 12/21/16 1425 Results 24 hrs Laboratory Tests Test 12/21/16 14:25 12/21/16 16:44 White Blood Count 12.510^3/ul Red Blood Count 3.8010^6/ul Hemoglobin 11.5g/dl Hematocrit 38.2% Mean Corpuscular Volume 100.5fl Mean Corpuscular Hemoglobin 30.3pg Mean Corpuscular Hemoglobin Concent 30.1g/dl Red Cell Distribution Width 14.0% Platelet Count 67616^3/UL Mean Platelet Volume 12.5fl Neutrophils % 68.7% Lymphocytes % 21.0% Monocytes % 7.8% Eosinophils % 1.6% Basophils % 0.3% Nucleated Red Blood Cells % 0.0/100WBC Neutrophils # 8.510^3/ul Lymphocytes # 2.610^3/ul Monocytes # 1.010^3/ul Eosinophils # 0.210^3/ul Basophils # 0.010^3/ul Nucleated Red Blood Cells # 0.010^3/ul Sodium Level 143mmol/L Potassium Level 4.3mmol/L Chloride Level 107mmol/L Carbon Dioxide Level 24mmol/L Anion Gap 16 Blood Urea Nitrogen 21mg/dl Creatinine 0.99mg/dl Glucose Level 149mg/dl Calcium Level 9.0mg/dl Total Bilirubin 0.0mg/dl Direct Bilirubin 0.00mg/dl Indirect Bilirubin 0.0mg/dl Aspartate Amino Transf (AST/SGOT) 15IU/L Alanine Aminotransferase (ALT/SGPT) 13IU/L Alkaline Phosphatase 87IU/L Troponin I < 0.012ng/ml B-Type Natriuretic Peptide 1770PG/ML Total Protein 7.3g/dl Albumin 3.8g/dl Globulin 3.50g/dl Albumin/Globulin Ratio 1.08 Urine Color YELLOW Urine Clarity SLIGHTLY CLOUDY Urine pH 5.0 Urine Specific [place] 1.025 Urine Ketones NEGATIVEmg/dL Urine Nitrite POSITIVEmg/dL Urine Bilirubin NEGATIVEmg/dL Urine Urobilinogen NEGATIVEmg/dL Urine Leukocyte Esterase 1+Rl/ul Urine Microscopic RBC 1/HPF Urine Microscopic WBC 4/HPF Urine Squamous Epithelial Cells FEW/HPF Urine Bacteria FEW/HPF Urine Mucus FEW/HPF Urine Hemoglobin NEGATIVEmg/dL Urine Glucose NEGATIVEmg/dL Urine Total Protein 1+mg/dl Current Medications Medications (Trade) Dose Ordered Sig/[place] Route PRN Reason Start Time Stop Time Status Last Admin Dose Admin Aspirin (Aspirin) 325 mg ONCE STAT PO 12/21/16 14:13 12/21/16 14:15 DC 12/21/16 14:13 Nitroglycerin (Nitroglycerin 2% Oint) 1 inch ONCE STAT TD 12/21/16 14:13 12/21/16 14:15 DC 12/21/16 14:13 Albuterol 7.5 mg 7.5 mg ONCE ONCE INH 12/21/16 14:30 12/21/16 14:31 DC 12/21/16 16:00 Azithromycin 250 ml @ 250 mls/hr ONCE STAT IV 12/21/16 14:20 12/21/16 15:19 DC 12/21/16 14:20 Ceftriaxone Sodium (Rocephin) 50 ml @ 100 mls/hr ONCE STAT IVPB 12/21/16 14:20 12/21/16 14:49 DC 12/21/16 15:00 Furosemide (Lasix) 40 mg ONCE ONCE IV 12/21/16 17:00 12/21/16 17:01 DC Hydromorphone HCl (Dilaudid) 1 mg ONCE STAT IV 12/21/16 16:44 12/21/16 16:45 DC Ondansetron HCl (Zofran Inj) 4 mg ONCE STAT IV 12/21/16 16:44 11/7/17 16:45 DC Procedures/MDM PROCEDURE: XR Chest. CLINICAL INDICATION: Chest pain. TECHNIQUE: Single frontal view. COMPARISON: 11/22/2016. FINDINGS: There is bilateral interstitial pulmonary edema, worse than seen previously. Air space disease is present in the left mid and lower lung zones consistent with atelectasis or pneumonia, worse than seen previously. The heart is enlarged. There is calcification in the aorta consistent with atherosclerosis. There is no pleural effusion. There is no pneumothorax. IMPRESSION: 1. Worse pulmonary edema and worse appearance of the left mid and lower lung zones consistent with atelectasis or pneumonia. 2. Cardiomegaly and atherosclerosis. 3. Otherwise unremarkable chest radiograph. RPTAT: QQ .Andrzej Alexandre MD, MD Date Time Electronically viewed and signed by .Andrzej Alexandre MD, MD on 12/21/2016 14:45 .R/ CC: SHANNON SHOEMAKER DO EKG: Rate/Rhythm: Normal sinus rhythm heart rate 68, right bundle branch block QRS, ST, QT: NORMAL SD wide QRS, QT] Impression: [Right bundle-branch block Patient was given antibiotics, Lasix, blood cultures were drawn. Will admit the hospital for diuresis as well as treatment for left lower lobe pneumonia Departure Diagnosis: Primary Impression: Left lower lobe pneumonia Pneumonia type: due to unspecified organism Qualified Code: J18.1 - Pneumonia of left lower lobe due to infectious organism Additional Impression: Congestive heart failure Congestive heart failure type: unspecified congestive heart failure type Congestive heart failure chronicity: unspecified congestive heart failure chronicity Qualified Code: I50.9 - Congestive heart failure, unspecified congestive heart failure chronicity, unspecified congestive heart failure type Condition: Stable SHANNON SHOEMAKER DO Dec 21, 2016 17:13
[2016-12-21] MEDS ORDERED: ACETAMINOPHEN 325 MG TAB PO PRN (17:30)
[2016-12-21] MEDS ORDERED: ONDANSETRON 4 MG INJ IV PRN (17:30)
[2016-12-21 20:33] VITALS: PULSE 56
[2016-12-21 20:35] VITALS: Ht 160 cm; Wt 159.0 kg
[2016-12-21] MEDS ORDERED: DEXTROSE 50% 50 ML SYRINGE IV PRN ×2 (23:00)
[2016-12-21] MEDS ORDERED: GLUCAGON 1 MG INJ IM PRN (23:00)
[2016-12-21] MEDS ORDERED: ALBUTEROL/IPRATROPIUM (NEB) 3 ML AMP HHN PRN (23:00)
[2016-12-21] MEDS ORDERED: morphine 2 MG INJ IV PRN (23:00)
[2016-12-21] MEDS ORDERED: GLUCOSE GEL 15 GRAM TUBE PO PRN ×2 (23:00)
[2016-12-21] MEDS ORDERED: GLUCOSE GEL 15 GRAM TUBE BUCCAL PRN (23:00)
[2016-12-21 23:35] VITALS: BP 116/61; RESP 20
[2016-12-22] VITALS (11 sets, daily range): BP systolic 121–136; BP diastolic 56–65; PULSE 60–83; RESP 19–21
[2016-12-22] MEDS ORDERED: ACCU-CHEK XX SCH (02:00)
[2016-12-22] MEDS: ACCU-CHEK XX SCH (02:08)
[2016-12-22] MEDS: IBUPROFEN 400 MG TAB PO PRN ×2 (05:46→15:10)
[2016-12-22] MEDS: INSULIN ASPART [NOVOLOG] 3 ML PEN SC SCH ×4 (07:55→21:00)
[2016-12-22 08:22] LABS: BASOPHIL # 0.1 10^3/ul (0.0-0.1); BASOPHILS % 0.5 % (0.0-2.0); EOSINOPHILS # 0.2 10^3/ul (0.0-0.5); EOSINOPHILS % 2.1 % (0.0-7.0); HEMATOCRIT 34.5 % (37.0-47.0); HEMOGLOBIN 10.3 g/dl (12.0-16.0); LYMPHOCYTES % 18.9 % (15.0-51.0); MEAN CORPUSCULAR HEMOGLOBIN 29.3 pg (29.0-33.0); MEAN CORPUSCULAR HGB CONC 29.9 g/dl (32.0-37.0); MEAN PLATELET VOLUME 12.5 fl (7.4-10.4); MONOCYTE # 0.8 10^3/ul (0.3-0.9); MONOCYTES % 7.6 % (0.0-11.0); NEUTROPHIL # 7.5 10^3/ul (1.6-7.5); NEUTROPHILS % 70.2 % (39.0-77.0); PLATELET COUNT 237 10^3/UL (140-415); RED BLOOD COUNT 3.52 10^6/ul (4.20-5.40); RED CELL DISTRIBUTION WIDTH 14.2 % (11.5-14.5); WHITE BLOOD COUNT 10.6 10^3/ul (4.8-10.8)
[2016-12-22 08:50] LABS: ALBUMIN 3.5 g/dl (3.3-4.9); ALBUMIN/GLOBULIN RATIO 1.06; BILIRUBIN,INDIRECT 0.1 mg/dl (0-1.1); BILIRUBIN,TOTAL 0.1 mg/dl (0.2-1.3); CALCIUM 8.9 mg/dl (8.4-10.2); CREATININE 0.8 mg/dl (0.44-1.00); TOTAL PROTEIN 6.8 g/dl (6.1-8.1)
[2016-12-22] MEDS: LEVOFLOXACIN 500MG/D5W (PMX) 100 ML IVPB SCH (08:51)
[2016-12-22] MEDS ORDERED: HEPARIN 5,000 UNIT/0.5 ML VIAL SC SCH (09:00)
[2016-12-22] MEDS: SOD FERRIC GLUC COMPLX 125 MG in SOD CHLORIDE 0.9% 100 ML IVPB SCH (11:32)
[2016-12-22] MEDS ORDERED: DIPHENHYDRAMINE 25 MG CAP PO PRN (17:00)
[2016-12-22] MEDS ORDERED: BISACODYL 10 MG SUPP PR PRN (17:00)
[2016-12-22] MEDS: HYDROCODONE/APAP (10/325) TAB PO PRN (18:48)
--- NOTE | 2016-12-22 20:18 | HP ---
Date/Time of Note Date/Time of Note DATE: 12/22/16 TIME: 20:10 Assessment/Plan VTE Prophylaxis VTE Prophylaxis Intervention: anti-embolic stocking VTE Contraindication Reason: peripheral vascular disease Lines/Catheters IV Catheter Type (from Nrsg): [place] [employer] line still needed: No Urinary Cath still in place: Yes Reason Cath still needed: urinary retention, skin wounds contaminated by urine Assessment/Plan Assessment/Plan 1. Congestive heart failure exacerbation with pulmonary edema.. cp r/o mi. 2. Bad odor from the urine with recurrent hematuria. 3.Low abdominal pain and llq abd pain 4. Leukocytosis 5. History of having palpitations-now bradycardic; lowest rate 45- now 63bpm. 6. History of having bronchial asthma, now stable. 7. Wound of the postsurgical scar, right-sided abdomen, healed. 8. Status post cholecystectomy. 9. Postmenstrual syndrome. 10. Anxiety. 11. Claustrophobia. 12. Dyslipidemia. 13. Diabetes type 2. 14. History of having carbon dioxide retention. 15. Anemia of chronic disease with recent loss. 16. History of chronic kidney disease, improved. 17. History of having low iron and low magnesium levels. 18. Pain syndrome. 19. Major depression. 20. Altered level of consciousness. 21. Diverticulitis. 22. Left-sided chest pain. 23.carbon dioxide narcosis (Hx of) 24.Trophic changes of both legs with change of a color. 25.Pilling of the skin of nailbeds of both hands with deformities and trace of blood and swelling.26. 26.11 years bedridden 27.Decubitus of t he left gluteal area with mild redness of the calcaneal skin 28.Severe deconditioning 29.Daytime sleepiness 30.Severe krupa of knees, hips ans ankle joints 31.Calcaneal pain. 32.Umbilical reducible hernia 4-5cm in diameter.Postsurgical. 33.Chronic norco,percocet, and other controlled substance user. 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 Hallucinations, confusion, fear on and off 37.Hypertension, now normotensive. 38.Low magnesium and low iron levels 39.Fear of . Cont'd Hospitalization Reason: as above HPI/ROS Admit Date/Time Admit Date/Time Dec 21, 2016 at 17:19 Hx of Present Illness Confusion; worsening of sob, fear of . ROS After being unable to tolerate the bad odor of the urine I felt more sob. On and off I feel I am loosing my awareness. Sweling of my legs got even worse.I can't move without help and last night I was wheezing. 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 Results are pending. Unable to tell did she concluded her antibiotics or not. Subjective hx not possible: pt critical Constitutional: chills, diaphoresis, disoriented, fatigue, nausea, poor po, weight change, No febrile, No improved, No no complaints, No other Eyes: discharge, redness, visual change, No no complaints, No other, No pain ENT: congestion, No bleeding, No discharge, No dysphagia, No no complaints, No other, No pain , No sore throat Respiratory: cough, pleuritic pain, shortness of breath, wheezing, No no complaints, No other, No pain, No sputum Cardiovascular: chest pain, edema, lightheadedness, orthopenea, palpitations, paroxysmal nocturnal dyspnea Gastrointestinal: constipation, diarrhea (occasionally.), flatus, pain, passing stool Genitourinary: flank pain, No bleeding, No discharge, No dysuria, No hematuria, No no complaints, No other Musculoskeletal: back pain, bone/joint pain, neck pain, restricted range of motion, No no complaints, No other, No swelling Skin: erythema, pruritis, No bruising, No laceration, No no complaints, No other, No rash, No skin lesions Neurologic: dizziness, headache Endocrine: dry skin, polydypsia, temp intolerance, weight change, No no complaints, No other, No polyuria Psychological: anxiety, confusion, depression PMH/Family/Social Past Medical History Medical History: angina, congestive heart failure, coronary artery disease, deep vein thrombosis, diabetes, diverticulitis, GERD, GI bleed, high cholesterol , hypertension, hypothyroid, irritable bowel syndrome, peptic ulcer disease Past Surgical History Past Surgical Hx: cholecystectomy, endoscopy, other Family History Significant Family History: heart disease, COPD, hypertension Social History Alcohol Use: none Smoking Status: Never smoker Drug Use: none Exam/Review of Systems Vital Signs Vitals Vital Signs Date Time Temp Pulse Resp B/P Pulse Ox O2 Delivery O2 Flow Rate FiO2 11/8/17 16:11 74 12/22/16 15:08 98.1 19 136/65 98 12/22/16 12:55 2.0 12/22/16 05:20 Nasal Cannula Intake and Output 12/21/16 12/21/16 12/22/16 15:00 23:00 07:00 Intake Total 200 ml Balance 200 ml Exam Constitutional: alert, distress, well developed, No frail, No non-verbal, No oriented, No other Psych: anxiety, confusion, depression, other (she thinks she is dying.), No nl mood/affect, No no complaints, No suicidal Head: atraumatic, hematomas, normocephalic, No lacerations, No other Eyes: EOMI, PERRL, nl lids, No fundi, disc, No icteric, No nl conjunctiva, No nl sclera, No other ENMT: nl nasal mucosa & septum, No intubated, No mucosa pink and moist, No nl external ears & nose, No nl lips & teeth, No other, No tympanic membranes Neck: bruits, jvd, nuchal rigidity, thyromegaly, No masses, No non-tender, No other, No supple Respiratory: congested cough, crackles/rales, diminished breath sounds, labored breathing, normal air movement, No clear to auscultation, No intercostal retraction, No other, No respirations, No tactile fremitus, No wheezing Cardiovascular: bruits, edema, irregular rhythm, jugular venous distention (JVD ), systolic murmur, No S3, No S4, No diastolic murmur, No gallop, No murmurs/extra sounds, No nl pulses, No other, No regular rate and rhythm, No rub Gastrointestinal: ascites, bowel sounds, distended, other (umbilical hernia.Nonreducible.), soft, No firm, No hepatomegaly, No mass, No nl liver, spleen, No non-tender, No rebound or guarding, No splenomegaly, No surgical scars, No tender Genitourinary - Female: CVA tenderness, nl external genitalia Musculoskeletal: joint tenderness, muscle tone, muscle weakness, nl gait and stance (unable to sit.) Extremities: calf tenderness, edema, normal pulses, pitting pedal edema, tenderness, No clubbing, No cyanosis, No other, No palpable cord Neurological: lethargic Skin: ecchymosis, rash or lesions Labs Result Diagram: 12/22/1608 12/22/16 0808 Medications Medications Current Medications Ondansetron HCl (Zofran Inj) 4 mg Q6H PRN IV NAUSEA AND/OR VOMITING; Start 12/21/16 at 23:00 Morphine Sulfate (morphine) 2 mg Q4H PRN IV PAIN Last administered on 00:09; Admin Dose 2 MG; Start 12/21/16 at 23:00 Diagnostic Test (Pha) (Accu-Chek) 1 ea 02 XX Last administered on 12/22/16 02: 08; Admin Dose 1 EA; Start 12/22/16 at 02:00 Miscellaneous Information 1 ea NOTE XX ; Start 12/21/16 at 23:00 Glucose (Glutose) 15 gm Q15M PRN PO DECREASED GLUCOSE; Start 12/21/16 at 23:00 Glucose (Glutose) 22.5 gm Q15M PRN PO DECREASED GLUCOSE; Start 12/21/16 at 23: 00 Dextrose (D50w Syringe) 25 ml Q15M PRN IV DECREASED GLUCOSE; Start 12/21/16 at 23:00 Dextrose (D50w Syringe) 50 ml Q15M PRN IV DECREASED GLUCOSE; Start 12/21/16 at 23:00 Glucagon (Glucagen) 1 mg Q15M PRN IM DECREASED GLUCOSE; Start 12/21/16 at 23:00 Glucose (Glutose) 15 gm Q15M PRN BUCCAL DECREASED GLUCOSE; Start 12/21/16 at 23 :00 Ibuprofen 400 mg 400 mg Q6H PRN PO PAIN OR TEMP ABOVE 38C Last administered on 12/22/16 15:10; Admin Dose 400 MG; Start 12/22/16 at 06:00 Levofloxacin/ Dextrose (Levaquin 500mg/ D5W 100 ml (Pmx)) 100 ml @ 100 mls/hr Q24H IVPB Last administered on 12/22/16 08:51; Admin Dose 100 MLS/HR; Start 12/22/16 at 07:30 Aspirin (Halfprin) 81 mg DAILY PO ; Start 12/23/16 at 09:00 Bisacodyl (Dulcolax Supp) 10 mg DAILY PRN [place] CONSTIPATION; Start 12/22/16 at 17 :00 Clonidine (Catapres) 0.1 mg DAILY PRN PO HTN; Start 12/22/16 at 17:00 Diphenhydramine HCl (Benadryl) 25 mg BID PRN PO ITCHING; Start 12/22/16 at 17: 00 Docusate Sodium (Colace) 200 mg BID PRN PO CONSTIPATION; Start 12/22/16 at 17: 00 Escitalopram Oxalate (Lexapro) 10 mg DAILY PO ; Start 12/23/16 at 09:00 EZETIMIBE (Zetia) 10 mg DAILY PO ; Start 12/23/16 at 09:00 Furosemide (Lasix) 40 mg DAILY PO ; Start 12/23/16 at 09:00 Gabapentin (Neurontin) 300 mg TID PO ; Start 12/22/16 at 21:00 Linagliptin (Tradjenta) 5 mg DAILY PO ; Start 12/23/16 at 09:00 Metformin HCl (Glucophage) 1,000 mg BID PO ; Start 12/22/16 at 21:00 Potassium Chloride (Micro-K) 8 meq DAILY PO ; Start 12/23/16 at 09:00 Prednisone (Prednisone) 10 mg DAILY PO ; Start 12/23/16 at 09:00 Salmeterol Xinafoate/ Fluticasone (Advair 250/50 Diskus) 1 inh BID INH ; Start 12/22/16 at 21:00 Solifenacin (Vesicare) 5 mg DAILY PO ; Start 12/23/16 at 09:00 Trimethoprim/ Sulfamethoxazole (Bactrim (Ds)) 1 tab BID PO ; Start 12/22/16 at 21:00 Tiotropium Paige (Spiriva) 1 inh DAILY INH ; Start 12/23/16 at 09:00 Voriconazole 200 mg 200 mg BID PO ; Start 12/22/16 at 21:00 Ferric Sodium Gluconate Complex/ Sodium Chloride (Ferrlecit/NS) 110 ml @ 110 mls/hr Q24H IVPB ; Start 12/22/16 at 20:00; Stop 12/26/16 at 20:59 Enoxaparin Sodium (Lovenox) 80 mg BID SC ; Start 12/22/16 at 21:00 Acetaminophen/ Hydrocodone Bitart ([place] (10/325)) 1 tab Q8H PRN PO Pain Last administered on 12/22/16t 18:48; Admin Dose 1 TAB; Start 12/22/16 at 17:12 Polyethylene Glycol (Miralax) 17 gm DAILY PO ; Start 12/23/16 at 09:00 Flecainide Acetate (Tambocor) 150 mg BID PO ; Start 12/22/16 at 21:00 STONE HERNANDEZ MD Dec 22, 2016 20:18
[2016-12-22] MEDS ORDERED: QUETIAPINE 25 MG TAB PO ONE (20:30)
[2016-12-22] MEDS ORDERED: LORAZEPAM 0.5 MG TAB PO PRN (20:30)
[2016-12-22] MEDS ORDERED: FLECAINIDE 50 MG TAB PO SCH (21:00)
[2016-12-22] MEDS: VORICONAZOLE 200 MG TAB PO SCH (21:10)
[2016-12-22] MEDS: GABAPENTIN 300 MG CAP PO SCH (21:11)
[2016-12-22] MEDS: FLECAINIDE 100 MG TAB PO SCH (21:11)
[2016-12-22] MEDS: metFORMIN 500 MG TAB PO SCH (21:11)
[2016-12-22] MEDS: TRIMETHOPRIM/SULFAMETHOX (DS) TAB PO SCH (21:11)
[2016-12-22] MEDS: POLYETHYLENE GLYCOL 17 GM PACKET PO SCH (21:12)
[2016-12-22] MEDS: SALMETEROL/FLUTICASONE 250/50 INHA INH SCH (21:12)
[2016-12-22] MEDS: ENOXAPARIN 40 MG/0.4 ML SYG SC SCH (21:21)
[2016-12-22] MEDS ORDERED: HYDROCODONE/APAP (10/325) TAB PO SCH (22:00)
[2016-12-22] MEDS: ALBUTEROL/IPRATROPIUM (NEB) 3 ML AMP HHN SCH (23:51)
[2016-12-23] VITALS (12 sets, daily range): BP systolic 112–144; BP diastolic 6–85; PULSE 62–70; RESP 19–22
[2016-12-23] MEDS: ACCU-CHEK XX SCH (02:31)
[2016-12-23 07:42] LABS: IRON 112 ug/dl (35-150)
[2016-12-23 07:51] LABS: TOTAL IRON BINDING CAPACITY 231 ug/dl (241-421)
[2016-12-23] MEDS: INSULIN ASPART [NOVOLOG] 3 ML PEN SC SCH ×4 (07:55→20:49)
[2016-12-23 08:06] LABS: MAGNESIUM 1.4 mg/dl (1.7-2.5)
[2016-12-23 08:38] LABS: THYROID STIMULATING HORMONE 1.11 MIU/L (0.465-4.680)
[2016-12-23] MEDS: LEVOFLOXACIN 500MG/D5W (PMX) 100 ML IVPB SCH (08:43)
--- NOTE | 2016-12-23 08:43 | CONS ---
Date/Time of Note Date/Time of Note DATE: 12/23/16 TIME: 08:43 Assessment/Plan Assessment/Plan Additional Assessment/Plan 1. Acute CHF Exacerbation, acute on chronic, systolic and diastolic 2. Hypomagnesemia 3. Acute pulmonary edema due to acute CHF exaceration 4. HTN 5. COPD 6. Possible Pneumonia Plan: On PO Lasix 40mg po daily magnesium 2 gram IV x 1 today need cardiology consult BP stable continue other med, avoid nephrotoxic medications will follow up if continues to have pulmonary edema, then we will switch her to IV lasix pt is on bactrim- not sure why she is on - will monitor her renal function and watch for Renal tubular acidosis Thanks for consultation,we will continue to follow up Consultation Date/Type/Reason Admit Date/Time Dec 21, 2016 at 17:19 Date of Consultation: Dec 23, 2016 Type of Consultation: NEPHROLOGY Reason for Consultation acute fluid overload, CHF< Hypernatremia , Hypomagnesemia Referring Provider: STONE HERNANDEZ MD Hx of Present Illness 76 F wtih pMHx of HTN, COPD, CHF, DM II, Morbid obesity who is admitted for CHF Exacebration, and renal has been consulted for electrolyte imbalance and Fluid management. Eyes: discharge, redness, visual change, No no complaints, No other, No pain ENT: congestion, No bleeding, No discharge, No dysphagia, No no complaints, No other, No pain , No sore throat Respiratory: cough, pleuritic pain, shortness of breath, wheezing, No no complaints, No other, No pain, No sputum Cardiovascular: chest pain, edema, lightheadedness, orthopenea, palpitations, paroxysmal nocturnal dyspnea Gastrointestinal: constipation, diarrhea (occasionally.), flatus, pain, passing stool Genitourinary: flank pain, No bleeding, No discharge, No dysuria, No hematuria, No no complaints, No other Musculoskeletal: back pain, bone/joint pain, neck pain, restricted range of motion, No no complaints, No other, No swelling Skin: erythema, pruritis, No bruising, No laceration, No no complaints, No other, No rash, No skin lesions Neurologic: dizziness, headache Psychological: anxiety, confusion, depression, other (she thinks she is dying.), No nl mood/affect, No no complaints, No suicidal Past Medical History Medical History: angina, congestive heart failure, coronary artery disease, deep vein thrombosis, diabetes, diverticulitis, GERD, GI bleed, high cholesterol , hypertension, hypothyroid, irritable bowel syndrome, peptic ulcer disease Past Surgical History Past Surgical Hx: cholecystectomy, endoscopy, other Social History Alcohol Use: none Smoking Status: Never smoker Drug Use: none Exam/Review of Systems Vital Signs Vitals Vital Signs Date Time Temp Pulse Resp B/P Pulse Ox O2 Delivery O2 Flow Rate FiO2 12/23/16 08:02 62 12/23/16 07:10 98.0 20 120/56 96 12/22/16 23:54 2.0 12/22/16 23:52 Nasal Cannula Intake and Output 12/22/16 12/22/16 12/23/16 14:59 22:59 06:59 Intake Total 500 ml 430 ml Output Total 600 ml Balance 500 ml -170 ml Results Result Diagram: 12/22/16 0808 12/22/16 0808 Results 24 hrs Laboratory Tests Test 12/22/16 08:46 12/22/16 12:16 12/22/16 17:35 12/22/16 21:06 Bedside Glucose 135 122 155 138 Test 12/23/16 06:35 Magnesium Level 1.4 L Iron Level 112 Total Iron Binding Capacity 231 L Percent Iron Saturation 48 Thyroid Stimulating Hormone (TSH) 1.110 Medications Medications Current Medications Ondansetron HCl (Zofran Inj) 4 mg Q6H PRN IV NAUSEA AND/OR VOMITING; Start 12/21/16 at 23:00 Morphine Sulfate (morphine) 2 mg Q4H PRN IV PAIN Last administered on 00:09; Admin Dose 2 MG; Start 12/21/16 at 23:00 Diagnostic Test (Pha) (Accu-Chek) 1 ea 02 XX Last administered on 12/23/16 02: 31; Admin Dose 1 EA; Start 12/22/16 at 02:00 Miscellaneous Information 1 ea NOTE XX ; Start 12/21/16 at 23:00 Glucose (Glutose) 15 gm Q15M PRN PO DECREASED GLUCOSE; Start 12/21/16 at 23:00 Glucose (Glutose) 22.5 gm Q15M PRN PO DECREASED GLUCOSE; Start 12/21/16 at 23: 00 Dextrose (D50w Syringe) 25 ml Q15M PRN IV DECREASED GLUCOSE; Start 12/21/16 at 23:00 Dextrose (D50w Syringe) 50 ml Q15M PRN IV DECREASED GLUCOSE; Start 12/21/16 at 23:00 Glucagon (Glucagen) 1 mg Q15M PRN IM DECREASED GLUCOSE; Start 12/21/16 at 23:00 Glucose (Glutose) 15 gm Q15M PRN BUCCAL DECREASED GLUCOSE; Start 12/21/16 at 23 :00 Ibuprofen 400 mg 400 mg Q6H PRN PO PAIN OR TEMP ABOVE 38C Last administered on 12/22/16 15:10; Admin Dose 400 MG; Start 12/22/16 at 06:00 Levofloxacin/ Dextrose (Levaquin 500mg/ D5W 100 ml (Pmx)) 100 ml @ 100 mls/hr Q24H IVPB Last administered on 12/22/16 08:51; Admin Dose 100 MLS/HR; Start 12/22/16 at 07:30 Aspirin (Halfprin) 81 mg DAILY PO ; Start 12/23/16 at 09:00 Bisacodyl (Dulcolax Supp) 10 mg DAILY PRN [place] CONSTIPATION; Start 12/22/16 at 17 :00 Clonidine (Catapres) 0.1 mg DAILY PRN PO HTN; Start 12/22/16 at 17:00 Diphenhydramine HCl (Benadryl) 25 mg BID PRN PO ITCHING; Start 12/22/16 at 17: 00 Docusate Sodium (Colace) 200 mg BID PRN PO CONSTIPATION; Start 12/22/16 at 17: 00 Escitalopram Oxalate (Lexapro) 10 mg DAILY PO ; Start 12/23/16 at 09:00 EZETIMIBE (Zetia) 10 mg DAILY PO ; Start 12/23/16 at 09:00 Furosemide (Lasix) 40 mg DAILY PO ; Start 12/23/16 at 09:00 Gabapentin (Neurontin) 300 mg TID PO Last administered on 12/22/16 21:11; Admin Dose 300 MG; Start 12/22/16 at 21:00 Linagliptin (Tradjenta) 5 mg DAILY PO ; Start 12/23/16 at 09:00 Metformin HCl (Glucophage) 1,000 mg BID PO Last administered on 12/22/16 21:11 ; Admin Dose 1,000 MG; Start 12/22/16 at 21:00 Potassium Chloride (Micro-K) 8 meq DAILY PO ; Start 12/23/16 at 09:00 Prednisone (Prednisone) 10 mg DAILY PO ; Start 12/23/16 at 09:00 Salmeterol Xinafoate/ Fluticasone (Advair 250/50 Diskus) 1 inh BID INH Last administered on 12/22/16 21:12; Admin Dose 1 INH; Start 12/22/16 at 21:00 Solifenacin (Vesicare) 5 mg DAILY PO ; Start 12/23/16 at 09:00 Trimethoprim/ Sulfamethoxazole (Bactrim (Ds)) 1 tab BID PO Last administered on 12/22/16 21:11; Admin Dose 1 TAB; Start 12/22/16 at 21:00 Tiotropium Teller (Spiriva) 1 inh DAILY INH ; Start 12/23/16 at 09:00 Voriconazole 200 mg 200 mg BID PO Last administered on 12/22/16 21:10; Admin Dose 200 MG; Start 12/22/16 at 21:00 Ferric Sodium Gluconate Complex/ Sodium Chloride (Ferrlecit/NS) 110 ml @ 110 mls/hr Q24H IVPB Last administered on 12/22/16 11:32; Admin Dose 110 MLS/HR; Start 12/22/16 at 20:00; Stop 12/26/16 at 20:59 Enoxaparin Sodium (Lovenox) 80 mg BID SC Last administered on 12/22/16 21:21; Admin Dose 80 MG; Start 12/22/16 at 21:00 Acetaminophen/ Hydrocodone Bitart ([place] (10/325)) 1 tab Q8H PRN PO Pain Last administered on 12/22/16 18:48; Admin Dose 1 TAB; Start 12/22/16 at 17:12 Flecainide Acetate (Tambocor) 150 mg BID PO Last administered on 12/22/16 21: 11; Admin Dose 150 MG; Start 12/22/16 at 21:00 Polyethylene Glycol (Miralax) 17 gm BID PO Last administered on 12/22/16 21:12 ; Admin Dose 17 GM; Start 12/22/16 at 21:00 Lorazepam (Ativan) 0.5 mg Q4H PRN PO ANXIETY; Start 12/22/16 at 20:30 JACK VALLE MD Dec 23, 2016 08:43
[2016-12-23] MEDS: GABAPENTIN 300 MG CAP PO SCH ×3 (08:45→20:52)
[2016-12-23] MEDS: SOLIFENACIN 5 MG TAB PO SCH (08:45)
[2016-12-23] MEDS: POLYETHYLENE GLYCOL 17 GM PACKET PO SCH ×2 (08:45→20:51)
[2016-12-23] MEDS: ASPIRIN (EC) 81 MG TAB PO SCH (08:46)
[2016-12-23] MEDS: predniSONE 10 MG TAB PO SCH (08:46)
[2016-12-23] MEDS: TRIMETHOPRIM/SULFAMETHOX (DS) TAB PO SCH ×2 (08:46→20:52)
[2016-12-23] MEDS: TIOTROPIUM 18 MCG CAPSULE INHA DEV INH SCH (08:46)
[2016-12-23] MEDS: ESCITALOPRAM 10 MG TAB PO SCH (08:46)
[2016-12-23] MEDS: FLECAINIDE 100 MG TAB PO SCH ×2 (08:46→20:54)
[2016-12-23] MEDS: VORICONAZOLE 200 MG TAB PO SCH ×2 (08:46→20:52)
[2016-12-23] MEDS: FUROSEMIDE 40 MG TAB PO SCH (08:46)
[2016-12-23] MEDS: EZETIMIBE 10 MG TAB PO SCH (08:46)
[2016-12-23] MEDS: LINAGLIPTIN 5 MG TABLET PO SCH (08:47)
[2016-12-23] MEDS: POTASSIUM CHLORIDE (SR) 8 MEQ CAP PO SCH (08:47)
[2016-12-23] MEDS: SALMETEROL/FLUTICASONE 250/50 INHA INH SCH ×2 (08:47→20:54)
[2016-12-23] MEDS: ENOXAPARIN 40 MG/0.4 ML SYG SC SCH ×2 (08:52→21:18)
[2016-12-23] MEDS: ALBUTEROL/IPRATROPIUM (NEB) 3 ML AMP HHN SCH ×2 (08:53→16:03)
[2016-12-23] MEDS: metFORMIN 500 MG TAB PO SCH ×2 (08:57→20:51)
[2016-12-23] MEDS: HYDROCODONE/APAP (10/325) TAB PO PRN ×3 (08:58→23:30)
[2016-12-23] MEDS ORDERED: POLYETHYLENE GLYCOL 3350 119 GM POWDER PO SCH (09:00)
[2016-12-23] MEDS ORDERED: MAGNESIUM SULFATE 2 GM/50 ML 50 ML IVPB ONE (09:00)
[2016-12-23] MEDS ORDERED: POLYETHYLENE GLYCOL 17 GM PACKET PO SCH (09:00)
--- NOTE | 2016-12-23 13:16 | RADRPT ---
PROCEDURE: CT scan facial bones CLINICAL INDICATION: Altered mental status, lethargy, pain. TECHNIQUE: CT scan of the face was performed on the a high-resolution multidetector CT scanner wit h multiple contiguous axial images obtained through the face. Coronal and sagittal reformatted imag es were obtained from the axial source images. One or more the following does reduction techniques w ere utilized: Automated exposure control, adjustment of the mA/ or kV according to patient's size, o r use of iterative reconstruction technique. Exam CTDI = 29.5 mGy and the DLP = 559.47 mGy-cm. COMPARISON: None available. FINDINGS: Suboptimal study to evaluate soft tissue considering absence of intravenous contrast. No acute fracture or dislocation is seen. No significant soft tissue swelling is noted. The orbita l globes are unremarkable. Nasal septum is intact. Paranasal sinuses demonstrate mild scattered muc osal thickening mainly in ethmoid air cells. Partially visualized multilevel severe discogenic disease of cervical spine is noted. IMPRESSION: 1. No acute facial fracture or dislocation. 2. Mild scattered paranasal sinus disease mainly in ethmoid air cells. 3. Partially visualized multilevel severe discogenic disease of cervical spine. RPTAT: HH .Raad Batres MD, Date Time Electronically viewed and signed by .Raad Batres MD, MD on 12/23/2016 13:16 .N/
--- NOTE | 2016-12-23 17:39 | RADRPT ---
PROCEDURE: Left knee radiographs. CLINICAL INDICATION: Left knee pain. TECHNIQUE: Three views. Weight bearing. Frontal, lateral, and Oblique. COMPARISON: 09/21/2016. FINDINGS: There is no fracture or dislocation. The soft tissues are normal. There are degenerative changes with osteophytes arising from all 3 joint compartment margins. There is tricompartmental joint space narrowing. There is medial joint compartment deformity. There is dif fuse osteopenia. There is no lytic or blastic lesion. There is no radiopaque foreign body. IMPRESSION: 1. Severe degenerative changes of the left knee. 2. Diffuse osteopenia. RPTAT: QQ .Andrzej Alexandre MD, MD Date Time Electronically viewed and signed by .Andrzej Alexandre MD, MD on 12/23/2016 17:39 .R/
--- NOTE | 2016-12-23 17:40 | RADRPT ---
PROCEDURE: Right knee radiographs. CLINICAL INDICATION: Right knee pain. TECHNIQUE: Three views. Weight bearing. Frontal, lateral, and oblique. COMPARISON: No prior studies are available for comparison. FINDINGS: There is no fracture or dislocation. The soft tissues are normal. There are degenerative changes with osteophytes arising from all 3 joint compartment margins. There is medial joint compartment narrowing, subarticular sclerosis, and deformity. There is diffuse osteo penia. There is no lytic or blastic lesion. There is no radiopaque foreign body. IMPRESSION: 1. Severe degenerative changes of the right knee. 2. Diffuse osteopenia. RPTAT: QQ .Andrzej Alexandre MD, MD Date Time Electronically viewed and signed by .Andrzej Alexandre MD, MD on 12/23/2016 17:40 .R/
--- NOTE | 2016-12-23 18:49 | PN ---
Date/Time of Note Date/Time of Note DATE: 12/23/16 TIME: 18:40 Assessment/Plan VTE Prophylaxis VTE Prophylaxis Intervention: ambulation, anti-embolic stocking Lines/Catheters IV Catheter Type (from Nrsg): Saline Lock Central line still needed: No Urinary Cath still in place: Yes Reason Cath still needed: urinary retention, other (indicate) Assessment/Plan Assessment/Plan 1. Congestive heart failure exacerbation with pulmonary edema.Improving 2. Bad odor from the urine with recurrent hematuria. 3.Low abdominal pain and llq abd pain 4. Leukocytosis 5. History of having palpitations-now bradycardic; lowest rate 45- now 63bpm. 6. History of having bronchial asthma, now stable. 7. Wound of the postsurgical scar, right-sided abdomen, healed. 8. Status post cholecystectomy. 9. Postmenstrual syndrome. 10. Anxiety. 11. Claustrophobia. 12. Dyslipidemia. 13. Diabetes type 2. 14. History of having carbon dioxide retention. 15. Anemia of chronic disease with recent loss. 16. History of chronic kidney disease, improved. 17. History of having low iron and low magnesium levels. 18. Pain syndrome. 19. Major depression. 20. Altered level of consciousness. 21. Diverticulitis. 22. Left-sided chest pain. 23.carbon dioxide narcosis (Hx of) 24.Trophic changes of both legs with change of a color. 25.Pilling of the skin of nailbeds of both hands with deformities and trace of blood and swelling.26. 26.11 years bedridden 27.Decubitus of t he left gluteal area with mild redness of the calcaneal skin 28.Severe deconditioning 29.Daytime sleepiness 30.Severe krupa of knees, hips ans ankle joints 31.Calcaneal pain. 32.Umbilical reducible hernia 4-5cm in diameter.Postsurgical. 33.Chronic norco,percocet, and other controlled substance user. 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 Hallucinations, confusion, fear on and off 37.Hypertension, now normotensive. 38.Low magnesium and low iron levels 39.Fear of . Subjective 24 Hr Interval Summary Free Text/Dictation Sob improved. I am getting terrified when I think abot the . Today I am more hopeful. Subjective hx not possible: pt critical status Constitutional: chills, diaphoresis, disoriented, poor po, requiring O2, No febrile, No improved, No no complaints, No other, No requiring IVF Eyes: redness, No discharge, No no complaints, No other, No pain, No visual change ENT: congestion, No bleeding, No discharge, No dysphagia, No no complaints, No other, No pain , No sore throat Respiratory: cough, shortness of breath, No no complaints, No other, No pain, No pleuritic pain, No sputum, No wheezing Cardiovascular: chest pain, edema, lightheadedness, orthopenea, palpitations, No no complaints, No other, No paroxysmal nocturnal dyspnea Gastrointestinal: constipation, flatus, pain, passing stool, No blood, No decreased appetite, No diarrhea, No nausea, No no complaints, No other, No vomiting Genitourinary: dysuria, flank pain, other (bad odor from the urine.) Musculoskeletal: back pain, bone/joint pain, neck pain Skin: bruising, pruritis Neurologic: confusion, dizziness, No focal-weakness, No headache, No no complaints, No other, No seizure, No syncope Psychological: anxiety, confusion, depression Exam/Review of Systems Vital Signs Vitals Vital Signs Date Time Temp Pulse Resp B/P Pulse Ox O2 Delivery O2 Flow Rate FiO2 12/23/16 16:17 78 20 98 Nasal Cannula 2.0 12/23/16 14:56 97.7 144/85 Intake and Output 12/22/16 12/22/16 12/23/16 15:00 23:00 07:00 Intake Total 500 ml 430 ml Output Total 600 ml Balance 500 ml -170 ml Exam Constitutional: alert, distress, obese, oriented (more oriented and cooperstive.), well developed, No frail, No non-verbal, No other Psych: anxiety, confusion, depression, No nl mood/affect, No no complaints, No other, No suicidal Head: atraumatic, hematomas, No lacerations, No normocephalic, No other Eyes: EOMI, PERRL, nl lids, No fundi, disc, No icteric, No nl conjunctiva, No nl sclera, No other ENMT: No intubated, No mucosa pink and moist, No nl external ears & nose, No nl lips & teeth, No nl nasal mucosa & septum, No other, No tympanic membranes Neck: bruits, jvd, non-tender, nuchal rigidity, thyromegaly, No masses, No other, No supple Respiratory: congested cough, diminished breath sounds, normal air movement, No clear to auscultation, No crackles/rales, No intercostal retraction, No labored breathing, No other, No respirations, No tactile fremitus, No wheezing Cardiovascular: bruits, edema, jugular venous distention (JVD), No S3, No S4, No diastolic murmur, No gallop, No irregular rhythm, No murmurs /extra sounds, No nl pulses, No other, No regular rate and rhythm, No rub, No systolic murmur Gastrointestinal: ascites, bowel sounds, distended, other, soft (umbilical hernia and pannus.), surgical scars, No firm, No hepatomegaly, No mass, No nl liver, spleen, No non-tender, No rebound or guarding, No splenomegaly, No tender Musculoskeletal: joint tenderness, muscle tone, muscle weakness, range of motion, No nl extremities to inspection, No nl gait and stance, No other, No spine non-tender, No swelling Neurological: LPN CARE MANAGER II-XII intact (hearing impairment.), confused, focal weakness, nl speech Results Result Diagram: 12/22/16 0808 12/22/16 0808 Results 24 hrs Laboratory Tests Test 12/22/16 21:06 12/23/16 06:35 12/23/16 08:42 12/23/16 11:49 Bedside Glucose 138 129 158 Magnesium Level 1.4 L Iron Level 112 Total Iron Binding Capacity 231 L Percent Iron Saturation 48 Thyroid Stimulating Hormone (TSH) 1.110 Test 12/23/16 16:54 Bedside Glucose 127 Medications Medications Current Medications Ondansetron HCl (Zofran Inj) 4 mg Q6H PRN IV NAUSEA AND/OR VOMITING; Start 12/21/16 at 23:00 Morphine Sulfate (morphine) 2 mg Q4H PRN IV PAIN Last administered on 00:09; Admin Dose 2 MG; Start 12/21/16 at 23:00 Diagnostic Test (Pha) (Accu-Chek) 1 ea 02 XX Last administered on 12/23/16 02: 31; Admin Dose 1 EA; Start 12/22/16 at 02:00 Miscellaneous Information 1 ea NOTE XX ; Start 12/21/16 at 23:00 Glucose (Glutose) 15 gm Q15M PRN PO DECREASED GLUCOSE; Start 12/21/16 at 23:00 Glucose (Glutose) 22.5 gm Q15M PRN PO DECREASED GLUCOSE; Start 12/21/16 at 23: 00 Dextrose (D50w Syringe) 25 ml Q15M PRN IV DECREASED GLUCOSE; Start 12/21/16 at 23:00 Dextrose (D50w Syringe) 50 ml Q15M PRN IV DECREASED GLUCOSE; Start 12/21/16 at 23:00 Glucagon (Glucagen) 1 mg Q15M PRN IM DECREASED GLUCOSE; Start 12/21/16 at 23:00 Glucose 15 gm 15 gm Q15M PRN BUCCAL DECREASED GLUCOSE; Start 12/21/16 at 23:00 Levofloxacin/ Dextrose (Levaquin 500mg/ D5W 100 ml (Pmx)) 100 ml @ 100 mls/hr Q24H IVPB Last administered on 12/23/16 08:43; Admin Dose 100 MLS/HR; Start 12/22/16 at 07:30 Aspirin (Halfprin) 81 mg DAILY PO Last administered on 12/23/16 08:46; Admin Dose 81 MG; Start 12/23/16 at 09:00 Bisacodyl (Dulcolax Supp) 10 mg DAILY PRN [place] CONSTIPATION; Start 12/22/16 at 17 :00 Clonidine (Catapres) 0.1 mg DAILY PRN PO HTN; Start 12/22/16 at 17:00 Diphenhydramine HCl (Benadryl) 25 mg BID PRN PO ITCHING; Start 12/22/16 at 17: 00 Docusate Sodium (Colace) 200 mg BID PRN PO CONSTIPATION; Start 12/22/16 at 17: 00 Escitalopram Oxalate (Lexapro) 10 mg DAILY PO Last administered on 12/23/16 08 :46; Admin Dose 10 MG; Start 12/23/16 at 09:00 EZETIMIBE (Zetia) 10 mg DAILY PO Last administered on 12/23/16 08:46; Admin Dose 10 MG; Start 12/23/16 at 09:00 Furosemide (Lasix) 40 mg DAILY PO Last administered on 12/23/16 08:46; Admin Dose 40 MG; Start 12/23/16 at 09:00 Gabapentin (Neurontin) 300 mg TID PO Last administered on 12/23/16 13:11; Admin Dose 300 MG; Start 12/22/16 at 21:00 Linagliptin (Tradjenta) 5 mg DAILY PO Last administered on 12/23/16 08:47; Admin Dose 5 MG; Start 12/23/16 at 09:00 Metformin HCl (Glucophage) 1,000 mg BID PO Last administered on 12/23/16 08:57 ; Admin Dose 1,000 MG; Start 12/22/16 at 21:00 Potassium Chloride (Micro-K) 8 meq DAILY PO Last administered on 12/23/16 08: 47; Admin Dose 8 MEQ; Start 12/23/16 at 09:00 Prednisone (Prednisone) 10 mg DAILY PO Last administered on 12/23/16 08:46; Admin Dose 10 MG; Start 12/23/16 at 09:00 Salmeterol Xinafoate/ Fluticasone (Advair 250/50 Diskus) 1 inh BID INH Last administered on 12/23/16 08:47; Admin Dose 1 INH; Start 12/22/16 at 21:00 Solifenacin (Vesicare) 5 mg DAILY PO Last administered on 12/23/16 08:45; Admin Dose 5 MG; Start 12/23/16 at 09:00 Trimethoprim/ Sulfamethoxazole (Bactrim (Ds)) 1 tab BID PO Last administered on 12/23/16 08:46; Admin Dose 1 TAB; Start 12/22/16 at 21:00 Tiotropium [place] (Spiriva) 1 inh DAILY INH Last administered on 12/23/16 08: 46; Admin Dose 1 INH; Start 12/23/16 at 09:00 Voriconazole 200 mg 200 mg BID PO Last administered on 12/23/16 08:46; Admin Dose 200 MG; Start 12/22/16 at 21:00 Ferric Sodium Gluconate Complex/ Sodium Chloride (Ferrlecit/NS) 110 ml @ 110 mls/hr Q24H IVPB Last administered on 12/22/16 11:32; Admin Dose 110 MLS/HR; Start 12/22/16 at 20:00; Stop 12/26/16 at 20:59 Enoxaparin Sodium (Lovenox) 80 mg BID SC Last administered on 12/23/16 08:52; Admin Dose 80 MG; Start 12/22/16 at 21:00 Flecainide Acetate (Tambocor) 150 mg BID PO Last administered on 12/23/16 08: 46; Admin Dose 150 MG; Start 12/22/16 at 21:00 Polyethylene Glycol (Miralax) 17 gm BID PO Last administered on 12/23/16 08:45 ; Admin Dose 17 GM; Start 12/22/16 at 21:00 Lorazepam (Ativan) 0.5 mg Q4H PRN PO ANXIETY; Start 12/22/16 at 20:30 Acetaminophen/ Hydrocodone Bitart ([place] (10/325)) 1 tab Q6H PRN PO Pain Last administered on 12/23/16 14:55; Admin Dose 1 TAB; Start 12/23/16 at 15:12 Ibuprofen (Motrin) 600 mg Q6H PRN PO PAIN OR TEMP ABOVE 38C; Start 12/23/16 at 14:00 STONE HERNANDEZ MD Dec 23, 2016 18:49
[2016-12-23] MEDS: SOD FERRIC GLUC COMPLX 125 MG in SOD CHLORIDE 0.9% 100 ML IVPB SCH (20:51)
[2016-12-23] MEDS: DIVALPROEX (EC) 125 MG TAB PO SCH ×2 (21:00→23:29)
[2016-12-24] VITALS (13 sets, daily range): BP systolic 120–146; BP diastolic 57–70; PULSE 68–76; RESP 18–20
[2016-12-24] MEDS: ALBUTEROL/IPRATROPIUM (NEB) 3 ML AMP HHN SCH ×4 (00:06→23:48)
[2016-12-24] MEDS: ACCU-CHEK XX SCH (02:00)
[2016-12-24] MEDS: IBUPROFEN 600 MG TAB PO PRN ×2 (03:42→21:38)
[2016-12-24] MEDS: HYDROCODONE/APAP (10/325) TAB PO PRN ×3 (06:28→22:32)
[2016-12-24] MEDS: INSULIN ASPART [NOVOLOG] 3 ML PEN SC SCH ×4 (07:26→21:00)
[2016-12-24] MEDS: LEVOFLOXACIN 500MG/D5W (PMX) 100 ML IVPB SCH (07:26)
[2016-12-24] MEDS: EZETIMIBE 10 MG TAB PO SCH (08:48)
[2016-12-24] MEDS: TRIMETHOPRIM/SULFAMETHOX (DS) TAB PO SCH ×2 (08:48→21:38)
[2016-12-24] MEDS: POLYETHYLENE GLYCOL 17 GM PACKET PO SCH ×2 (08:48→21:36)
[2016-12-24] MEDS: VORICONAZOLE 200 MG TAB PO SCH ×2 (08:48→21:38)
[2016-12-24] MEDS: SOLIFENACIN 5 MG TAB PO SCH (08:48)
[2016-12-24] MEDS: FLECAINIDE 100 MG TAB PO SCH ×2 (08:48→21:37)
[2016-12-24] MEDS: ASPIRIN (EC) 81 MG TAB PO SCH (08:48)
[2016-12-24] MEDS: metFORMIN 500 MG TAB PO SCH ×2 (08:49→21:38)
[2016-12-24] MEDS: POTASSIUM CHLORIDE (SR) 8 MEQ CAP PO SCH (08:49)
[2016-12-24] MEDS: ESCITALOPRAM 10 MG TAB PO SCH (08:49)
[2016-12-24] MEDS: FUROSEMIDE 40 MG TAB PO SCH (08:49)
[2016-12-24] MEDS: DIVALPROEX (EC) 125 MG TAB PO SCH ×3 (08:49→21:38)
[2016-12-24] MEDS: LINAGLIPTIN 5 MG TABLET PO SCH (08:49)
[2016-12-24] MEDS: GABAPENTIN 300 MG CAP PO SCH ×3 (08:49→21:38)
[2016-12-24] MEDS: TIOTROPIUM 18 MCG CAPSULE INHA DEV INH SCH (08:50)
[2016-12-24] MEDS: predniSONE 10 MG TAB PO SCH (08:50)
[2016-12-24] MEDS: SALMETEROL/FLUTICASONE 250/50 INHA INH SCH ×2 (08:50→21:36)
[2016-12-24] MEDS: ENOXAPARIN 40 MG/0.4 ML SYG SC SCH ×2 (08:55→21:54)
--- NOTE | 2016-12-24 10:46 | CONS ---
DATE OF ADMISSION: 12/21/2016 DATE OF CONSULTATION: HISTORY OF PRESENT ILLNESS: The patient is a 76-year-old female with multiple medical problems. Th e patient complained about shaking activity, ____ difficulty, scared, moving her arm, hallucinations , seizure-like activity and we did get a call about her for more evaluation and treatment. PHYSICAL EXAMINATION: GENERAL: On exam today, the patient is alert, awake, and follows simple commands. LUNGS: Equal breath sounds. ABDOMEN: Obese, soft, relaxed. HEART: Regular rate and rhythm. No murmur, no gallop. NEUROLOGIC: Cranial nerves: Cranial nerve II: Pupils equal on both sides, reactive to light. Acrobatic Dancer nial nerves III, IV and : Extraocular muscle intact. No nystagmus. Cranial nerve V: Equal sens ation to face. Cranial nerve VII: Symmetrical face. Cranial nerve VIII: Decreased hearing bilate rally. Cranial nerves IX and X: ____ Cranial nerve XI: Elevates shoulder 5/5. Cranial nerve XII: Straight tongue. MOTOR: Decreased right hand hand stone polisher 4+/5. SENSATION: Decreased for glove and stocking ____ for light touch and temperature. COORDINATION: [id number] test intact. HEART: Regular rate and rhythm. ASSESSMENT AND PLAN: 1. The patient is 76 years old with underlying shaking activity which could have underlying seizure . We will follow up the patient with electroencephalogram for more evaluation and treatment. 2. Hallucination and delusion. I might start her on Depakote ____ mood stabilizer as well as seizu re activity. 3. Keep the patient under seizure precautions, aspiration precautions and fall precautions for now. 4. Underlying depression with the patient on Lexapro 10 mg once a day. 5. Paraesthesia. Give the patient Neurontin 100 mg 3 times a day. Dictated By: MOSES CENTENO/JESUS Conf#: [id number] DID#: [id number]
--- NOTE | 2016-12-24 12:51 | PQ ---
Date/Time of Note Date/Time of Note DATE: 12/24/16 TIME: 12:47 Physician Query Documentation Clarification Dear Dr. Ruiz, A review of the medical record found a need for documentation clarification. Documentation in the medical record indicates that this patient has been admitted with the following BMI: 62.1 Based on your medical judgment, can you further clarify which, if any, of the following conditions are present? . To facilitate accurate and complete coding, please arcenio ( x ) the suspected diagnosis that apply: ( ) Overweight (BMI between 25 & 29.9) ( ICD10 E66.3 ) ( ) Obesity, unspecified (BMI between 30 & 39) ( ICD10 E66.9 ) ( ) Morbid (severe) obesity due to excess calories (BMI 40 or greater) ( ICD10 E66.01 ) BMI 40.0 - 44.9 ( ICD10 Z68.41 ) BMI 45.0 - 49.9 ( ICD10 Z68.42 ) BMI 50.0 - 59.9 ( ICD10 Z68.43 ) BMI 60.0 - 69.9 ( ICD10 Z68.44 ) BMI 70 and over ( ICD10 Z68.45 ) Please provide your response by clicking edit document, making your choice ( x ), click ok/save and finally click sign. You may also document your response on your progress notes. Thank you for your time. With appreciation, Raul Copeland RN, BSN, CCS, CCDS Clinical Human Resources Office Assistant Health Information Management, CDI and Coding Services [phone] Room # 1525 - [address]~ [address] RAUL COPELAND Dec 24, 2016 12:51
--- NOTE | 2016-12-24 17:39 | CONS ---
Date/Time of Note Date/Time of Note DATE: 12/24/16 TIME: 17:37 Assessment/Plan Assessment/Plan Chief Complaint/Hosp Course 76 F wtih pMHx of HTN, COPD, CHF, DM II, Morbid obesity who is admitted for CHF Exacebration, and renal has been consulted for electrolyte imbalance and Fluid management. Problems: Additional Assessment/Plan 1. Acute CHF Exacerbation, acute on chronic, systolic and diastolic 2. Hypomagnesemia 3. Acute pulmonary edema due to acute CHF exaceration 4. HTN 5. COPD 6. Possible Pneumonia Plan: On PO Lasix 40mg po daily neurology consulted for possible seizures continue other med, avoid nephrotoxic medications if continues to have pulmonary edema, then we will switch her to IV lasix pt is on bactrim- not sure why she is on - will monitor her renal function and watch for Renal tubular acidosis will follow up AM labs ordered Consultation Date/Type/Reason Admit Date/Time Dec 21, 2016 at 17:19 Initial Consult Date 12/23/16 Type of Consultation: NEPHROLOGY Referring Provider: STONE HERNANDEZ MD 24 HR Interval Summary Free Text/Dictation Neurology consulted for possible seizure, no labs today to review yet Exam/Review of Systems Vital Signs Vitals Vital Signs Date Time Temp Pulse Resp B/P Pulse Ox O2 Delivery O2 Flow Rate FiO2 12/24/16 16:12 72 18 96 Nasal Cannula 2.0 12/24/16 15:15 98.7 132/64 Intake and Output 12/23/16 12/23/16 12/24/16 14:59 22:59 06:59 Intake Total 1060 ml 520 ml Output Total 1900 ml 550 ml Balance -840 ml -30 ml Exam Constitutional: alert Psych: no complaints ENMT: nl external ears & nose Neck: non-tender, supple Respiratory: crackles/rales, diminished breath sounds Cardiovascular: nl pulses, regular rate and rhythm Gastrointestinal: non-tender, soft Musculoskeletal: muscle weakness, range of motion, swelling Results Result Diagram: 12/22/16 0808 12/22/16 0808 Results 24 hrs Laboratory Tests Test 12/23/16 20:47 12/24/16 07:25 12/24/16 11:35 12/24/16 15:54 Bedside Glucose 101 88 123 141 Test 12/24/16 16:49 Bedside Glucose 136 Medications Medications Current Medications Ondansetron HCl (Zofran Inj) 4 mg Q6H PRN IV NAUSEA AND/OR VOMITING; Start 12/21/16 at 23:00 Morphine Sulfate (morphine) 2 mg Q4H PRN IV PAIN Last administered on 00:09; Admin Dose 2 MG; Start 12/21/16 at 23:00 Diagnostic Test (Pha) (Accu-Chek) 1 ea 02 XX Last administered on 12/23/16 02: 31; Admin Dose 1 EA; Start 12/22/16 at 02:00 Miscellaneous Information 1 ea NOTE XX ; Start 12/21/16 at 23:00 Glucose (Glutose) 15 gm Q15M PRN PO DECREASED GLUCOSE; Start 12/21/16 at 23:00 Glucose (Glutose) 22.5 gm Q15M PRN PO DECREASED GLUCOSE; Start 12/21/16 at 23: 00 Dextrose (D50w Syringe) 25 ml Q15M PRN IV DECREASED GLUCOSE; Start 12/21/16 at 23:00 Dextrose (D50w Syringe) 50 ml Q15M PRN IV DECREASED GLUCOSE; Start 12/21/16 at 23:00 Glucagon (Glucagen) 1 mg Q15M PRN IM DECREASED GLUCOSE; Start 12/21/16 at 23:00 Glucose (Glutose) 15 gm Q15M PRN BUCCAL DECREASED GLUCOSE; Start 12/21/16 at 23 :00 Aspirin (Halfprin) 81 mg DAILY PO Last administered on 12/24/16 08:48; Admin Dose 81 MG; Start 12/23/16 at 09:00 Bisacodyl (Dulcolax Supp) 10 mg DAILY PRN [place] CONSTIPATION; Start 12/22/16 at 17 :00 Clonidine (Catapres) 0.1 mg DAILY PRN PO HTN; Start 12/22/16 at 17:00 Diphenhydramine HCl (Benadryl) 25 mg BID PRN PO ITCHING; Start 12/22/16 at 17: 00 Docusate Sodium (Colace) 200 mg BID PRN PO CONSTIPATION; Start 12/22/16 at 17: 00 Escitalopram Oxalate (Lexapro) 10 mg DAILY PO Last administered on 12/24/16 08:49; Admin Dose 10 MG; Start 12/23/16 at 09:00 EZETIMIBE (Zetia) 10 mg DAILY PO Last administered on 12/24/16 08:48; Admin Dose 10 MG; Start 12/23/16 at 09:00 Furosemide (Lasix) 40 mg DAILY PO Last administered on 12/24/16 08:49; Admin Dose 40 MG; Start 12/23/16 at 09:00 Gabapentin (Neurontin) 300 mg TID PO Last administered on 12/24/16 12:42; Admin Dose 300 MG; Start 12/22/16 at 21:00 Linagliptin (Tradjenta) 5 mg DAILY PO Last administered on 12/24/16 08:49; Admin Dose 5 MG; Start 12/23/16 at 09:00 Metformin HCl (Glucophage) 1,000 mg BID PO Last administered on 12/24/16 08: 49; Admin Dose 1,000 MG; Start 12/22/16 at 21:00 Potassium Chloride (Micro-K) 8 meq DAILY PO Last administered on 12/24/16 08: 49; Admin Dose 8 MEQ; Start 12/23/16 at 09:00 Prednisone (Prednisone) 10 mg DAILY PO Last administered on 12/24/16 08:50; Admin Dose 10 MG; Start 12/23/16 at 09:00 Salmeterol Xinafoate/ Fluticasone (Advair 250/50 Diskus) 1 inh BID INH Last administered on 12/24/16 08:50; Admin Dose 1 INH; Start 12/22/16 at 21:00 Solifenacin (Vesicare) 5 mg DAILY PO Last administered on 12/24/16 08:48; Admin Dose 5 MG; Start 12/23/16 at 09:00 Trimethoprim/ Sulfamethoxazole (Bactrim (Ds)) 1 tab BID PO Last administered on 12/24/16 08:48; Admin Dose 1 TAB; Start 12/22/16 at 21:00 Tiotropium [place] (Spiriva) 1 inh DAILY INH Last administered on 12/24/16 08 :50; Admin Dose 1 INH; Start 12/23/16 at 09:00 Voriconazole 200 mg 200 mg BID PO Last administered on 12/24/16 08:48; Admin Dose 200 MG; Start 12/22/16 at 21:00 Ferric Sodium Gluconate Complex/ Sodium Chloride (Ferrlecit/NS) 110 ml @ 110 mls/hr Q24H IVPB Last administered on 12/23/16 20:51; Admin Dose 110 MLS/HR; Start 12/22/16 at 20:00; Stop 12/26/16 at 20:59 Enoxaparin Sodium (Lovenox) 80 mg BID SC Last administered on 12/24/16 08:55 ; Admin Dose 80 MG; Start 12/22/16 at 21:00 Flecainide Acetate (Tambocor) 150 mg BID PO Last administered on 12/24/16 08: 48; Admin Dose 150 MG; Start 12/22/16 at 21:00 Polyethylene Glycol (Miralax) 17 gm BID PO Last administered on 12/24/16 08: 48; Admin Dose 17 GM; Start 12/22/16 at 21:00 Lorazepam (Ativan) 0.5 mg Q4H PRN PO ANXIETY; Start 12/22/16 at 20:30 Acetaminophen/ Hydrocodone Bitart ([place] (10/325)) 1 tab Q6H PRN PO Pain Last administered on 12/24/16 13:46; Admin Dose 1 TAB; Start 12/23/16 at 15:12 Ibuprofen (Motrin) 600 mg Q6H PRN PO PAIN OR TEMP ABOVE 38C Last administered on 12/24/16 03:42; Admin Dose 600 MG; Start 12/23/16 at 14:00 Divalproex Sodium (Depakote) 125 mg TID PO Last administered on 12/24/16 12: 42; Admin Dose 125 MG; Start 12/23/16 at 21:00 Levofloxacin (Levaquin) 500 mg DAILY@06 PO ; Start 12/25/16 at 06:00 JACK VALLE MD Dec 24, 2016 17:39
--- NOTE | 2016-12-24 19:43 | PN ---
Date/Time of Note Date/Time of Note DATE: 12/24/16 TIME: 19:34 Assessment/Plan VTE Prophylaxis VTE Prophylaxis Intervention: ambulation, anti-embolic stocking VTE Contraindication Reason: peripheral vascular disease Lines/Catheters IV Catheter Type (from Nrsg): [place] [employer] line still needed: No Urinary Cath still in place: Yes Reason Cath still needed: urinary retention Assessment/Plan Assessment/Plan 1. Congestive heart failure exacerbation with pulmonary edema.Improving 2. Bad odor from the urine with recurrent hematuria. 3.Low abdominal pain and llq abd pain 4. Leukocytosis 5. History of having palpitations-now bradycardic; lowest rate 45- now 63bpm. 6. History of having bronchial asthma, now stable. 7. Wound of the postsurgical scar, right-sided abdomen, healed. 8. Status post cholecystectomy. 9. Postmenstrual syndrome. 10. Anxiety. 11. Claustrophobia. 12. Dyslipidemia. 13. Diabetes type 2. 14. History of having carbon dioxide retention. 15. Anemia of chronic disease with recent loss. 16. History of chronic kidney disease, improved. 17. History of having low iron and low magnesium levels. 18. Pain syndrome. 19. Major depression. 20. Altered level of consciousness. 21. Diverticulitis. 22. Left-sided chest pain. 23.carbon dioxide narcosis (Hx of) 24.Trophic changes of both legs with change of a color. 25.Pilling of the skin of nailbeds of both hands with deformities and trace of blood and swelling.26. 26.11 years bedridden 27.Decubitus of t he left gluteal area with mild redness of the calcaneal skin 28.Severe deconditioning 29.Daytime sleepiness 30.Severe krupa of knees, hips ans ankle joints 31.Calcaneal pain. 32.Umbilical reducible hernia 4-5cm in diameter.Postsurgical. 33.Chronic norco,percocet, and other controlled substance user. 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 Hallucinations, confusion, fear on and off 37.Hypertension, now normotensive. 38.Low magnesium and low iron levels 39.Fear of . 40.Morbid (severe) obesity due to excess calories (BMI 40 or greater) ( ICD10 E66.01 ) Cont'd Hospitalization Reason: Hallucination, delusions. CVont. w/u. Subjective 24 Hr Interval Summary Free Text/Dictation I see people who are . I see things which people say are not there. I am afraid. i can't sleep at night. I am sleeppy during daytime. Constitutional: disoriented, improved, requiring O2, No chills, No diaphoresis, No febrile, No no complaints, No other, No poor po , No requiring IVF Eyes: discharge, visual change ENT: congestion, dysphagia, No bleeding, No discharge, No no complaints, No other, No pain, No sore throat Respiratory: cough, shortness of breath, No no complaints, No other, No pain, No pleuritic pain, No sputum, No wheezing Cardiovascular: lightheadedness, orthopenea, palpitations, paroxysmal nocturnal dyspnea Gastrointestinal: constipation, decreased appetite, flatus, nausea, pain, passing stool, No blood, No diarrhea, No no complaints, No other, No vomiting Genitourinary: dysuria Skin: bruising, erythema Neurologic: confusion, dizziness, headache, No focal-weakness, No no complaints, No other, No seizure, No syncope Psychological: anxiety, confusion, depression, other (Visual and ocasionally auditory hasllucinations.) Exam/Review of Systems Vital Signs Vitals Vital Signs Date Time Temp Pulse Resp B/P Pulse Ox O2 Delivery O2 Flow Rate FiO2 12/24/16 16:12 72 18 96 Nasal Cannula 2.0 12/24/16 15:15 98.7 132/64 Intake and Output 12/23/16 12/23/16 12/24/16 15:00 23:00 07:00 Intake Total 1060 ml 520 ml Output Total 1900 ml 550 ml Balance -840 ml -30 ml Exam Constitutional: alert, frail, obese, well developed, No distress, No non-verbal, No oriented, No other Psych: anxiety, confusion, depression, No nl mood/affect, No no complaints, No other, No suicidal Head: No atraumatic, No hematomas, No lacerations, No normocephalic, No other Eyes: EOMI, PERRL, nl lids, No fundi, disc, No icteric, No nl conjunctiva, No nl sclera, No other ENMT: No intubated, No mucosa pink and moist, No nl external ears & nose, No nl lips & teeth, No nl nasal mucosa & septum, No other, No tympanic membranes Neck: bruits, No jvd, No masses, No non-tender, No nuchal rigidity, No other, No supple, No thyromegaly Respiratory: congested cough, diminished breath sounds, No clear to auscultation, No crackles/rales, No intercostal retraction, No labored breathing, No normal air movement, No other, No respirations, No tactile fremitus, No wheezing Cardiovascular: bruits, edema, irregular rhythm, jugular venous distention (JVD ), murmurs/extra sounds, systolic murmur Gastrointestinal: bowel sounds, distended (pannus.), nl liver, spleen, other, surgical scars, No ascites, No firm, No hepatomegaly, No mass, No non-tender, No rebound or guarding, No soft, No splenomegaly, No tender Musculoskeletal: joint tenderness, muscle tone, muscle weakness, No nl extremities to inspection, No nl gait and stance, No other, No range of motion, No spine non-tender, No swelling Extremities: No calf tenderness, No clubbing, No cyanosis, No edema, No normal pulses, No other, No palpable cord, No pitting pedal edema, No tenderness Neurological: confused, lethargic (during daytime, sleeppy during nighttime. ) Skin: No diaphoresis, No ecchymosis, No laceration, No nl turgor, No other, No puncture, No rash or lesions Results Result Diagram: 12/22/16 0808 12/22/16 0808 Results 24 hrs Laboratory Tests Test 12/23/16 20:47 12/24/16 07:25 12/24/16 11:35 12/24/16 15:54 Bedside Glucose 101 88 123 141 Test 12/24/16 16:49 Bedside Glucose 136 Medications Medications Current Medications Ondansetron HCl (Zofran Inj) 4 mg Q6H PRN IV NAUSEA AND/OR VOMITING; Start 12/21/16 at 23:00 Morphine Sulfate (morphine) 2 mg Q4H PRN IV PAIN Last administered on 00:09; Admin Dose 2 MG; Start 12/21/16 at 23:00 Diagnostic Test (Pha) (Accu-Chek) 1 ea 02 XX Last administered on 12/23/16 02: 31; Admin Dose 1 EA; Start 12/22/16 at 02:00 Miscellaneous Information 1 ea NOTE XX ; Start 12/21/16 at 23:00 Glucose (Glutose) 15 gm Q15M PRN PO DECREASED GLUCOSE; Start 12/21/16 at 23:00 Glucose (Glutose) 22.5 gm Q15M PRN PO DECREASED GLUCOSE; Start 12/21/16 at 23: 00 Dextrose (D50w Syringe) 25 ml Q15M PRN IV DECREASED GLUCOSE; Start 12/21/16 at 23:00 Dextrose (D50w Syringe) 50 ml Q15M PRN IV DECREASED GLUCOSE; Start 12/21/16 at 23:00 Glucagon (Glucagen) 1 mg Q15M PRN IM DECREASED GLUCOSE; Start 12/21/16 at 23:00 Glucose (Glutose) 15 gm Q15M PRN BUCCAL DECREASED GLUCOSE; Start 12/21/16 at 23 :00 Aspirin (Halfprin) 81 mg DAILY PO Last administered on 12/24/16 08:48; Admin Dose 81 MG; Start 12/23/16 at 09:00 Bisacodyl (Dulcolax Supp) 10 mg DAILY PRN MD CONSTIPATION; Start 12/22/16 at 17 :00 Clonidine (Catapres) 0.1 mg DAILY PRN PO HTN; Start 12/22/16 at 17:00 Diphenhydramine HCl (Benadryl) 25 mg BID PRN PO ITCHING; Start 12/22/16 at 17: 00 Docusate Sodium (Colace) 200 mg BID PRN PO CONSTIPATION; Start 12/22/16 at 17: 00 Escitalopram Oxalate (Lexapro) 10 mg DAILY PO Last administered on 12/24/16 08:49; Admin Dose 10 MG; Start 12/23/16 at 09:00 EZETIMIBE (Zetia) 10 mg DAILY PO Last administered on 12/24/16 08:48; Admin Dose 10 MG; Start 12/23/16 at 09:00 Furosemide (Lasix) 40 mg DAILY PO Last administered on 12/24/16 08:49; Admin Dose 40 MG; Start 12/23/16 at 09:00 Gabapentin (Neurontin) 300 mg TID PO Last administered on 12/24/16 12:42; Admin Dose 300 MG; Start 12/22/16 at 21:00 Linagliptin (Tradjenta) 5 mg DAILY PO Last administered on 12/24/16 08:49; Admin Dose 5 MG; Start 12/23/16 at 09:00 Metformin HCl (Glucophage) 1,000 mg BID PO Last administered on 12/24/16 08: 49; Admin Dose 1,000 MG; Start 12/22/16 at 21:00 Potassium Chloride (Micro-K) 8 meq DAILY PO Last administered on 12/24/16 08: 49; Admin Dose 8 MEQ; Start 12/23/16 at 09:00 Prednisone (Prednisone) 10 mg DAILY PO Last administered on 12/24/16 08:50; Admin Dose 10 MG; Start 12/23/16 at 09:00 Salmeterol Xinafoate/ Fluticasone (Advair 250/50 Diskus) 1 inh BID INH Last administered on 12/24/16 08:50; Admin Dose 1 INH; Start 12/22/16 at 21:00 Solifenacin (Vesicare) 5 mg DAILY PO Last administered on 12/24/16 08:48; Admin Dose 5 MG; Start 12/23/16 at 09:00 Trimethoprim/ Sulfamethoxazole (Bactrim (Ds)) 1 tab BID PO Last administered on 12/24/16 08:48; Admin Dose 1 TAB; Start 12/22/16 at 21:00 Tiotropium [place] (Spiriva) 1 inh DAILY INH Last administered on 12/24/16 08 :50; Admin Dose 1 INH; Start 12/23/16 at 09:00 Voriconazole 200 mg 200 mg BID PO Last administered on 12/24/16 08:48; Admin Dose 200 MG; Start 12/22/16 at 21:00 Ferric Sodium Gluconate Complex/ Sodium Chloride (Ferrlecit/NS) 110 ml @ 110 mls/hr Q24H IVPB Last administered on 12/23/16 20:51; Admin Dose 110 MLS/HR; Start 12/22/16 at 20:00; Stop 12/26/16 at 20:59 Enoxaparin Sodium (Lovenox) 80 mg BID SC Last administered on 12/24/16 08:55 ; Admin Dose 80 MG; Start 12/22/16 at 21:00 Flecainide Acetate (Tambocor) 150 mg BID PO Last administered on 12/24/16 08: 48; Admin Dose 150 MG; Start 12/22/16 at 21:00 Polyethylene Glycol (Miralax) 17 gm BID PO Last administered on 12/24/16 08: 48; Admin Dose 17 GM; Start 12/22/16 at 21:00 Lorazepam (Ativan) 0.5 mg Q4H PRN PO ANXIETY; Start 12/22/16 at 20:30 Acetaminophen/ Hydrocodone Bitart ([place] (10325)) 1 tab Q6H PRN PO Pain Last administered on 12/24/16 13:46; Admin Dose 1 TAB; Start 12/23/16 at 15:12 Ibuprofen (Motrin) 600 mg Q6H PRN PO PAIN OR TEMP ABOVE 38C Last administered on 12/24/16 03:42; Admin Dose 600 MG; Start 12/23/16 at 14:00 Divalproex Sodium (Depakote) 125 mg TID PO Last administered on 12/24/16 12: 42; Admin Dose 125 MG; Start 12/23/16 at 21:00 Levofloxacin (Levaquin) 500 mg DAILY@06 PO ; Start 12/25/16 at 06:00 STONE HERNANDEZ MD Dec 24, 2016 19:43
--- NOTE | 2016-12-24 21:00 | RADRPT ---
PROCEDURE: Right breast ultrasound. CLINICAL INDICATION: Right breast pain and tenderness. Fibrocystic disease of breast. TECHNIQUE: Right whole, 4 quadrant breast and retroareolar, and axillary sonography was performed. COMPARISON: None. FINDINGS: No solid or suspicious masses. No malignant adenopathy. No dominant cysts are present. IMPRESSION: No sonographic evidence of malignancy. ACR BIRADS 1: NEGATIVE RPTAT: EE .Guerline Merino MD, MD Date Time Electronically viewed and signed by .Guerline Merino MD, on 12/24/2016 20:59 .F/
[2016-12-24] MEDS: SOD FERRIC GLUC COMPLX 125 MG in SOD CHLORIDE 0.9% 100 ML IVPB SCH (21:36)
[2016-12-25] VITALS (11 sets, daily range): BP systolic 117–132; BP diastolic 54–64; PULSE 70–77; RESP 18–20
[2016-12-25] MEDS: ACCU-CHEK XX SCH (02:00)
[2016-12-25 06:16] LABS: BASOPHIL # 0.1 10^3/ul (0.0-0.1); BASOPHILS % 0.5 % (0.0-2.0); EOSINOPHILS # 0.2 10^3/ul (0.0-0.5); EOSINOPHILS % 2.3 % (0.0-7.0); HEMATOCRIT 35.7 % (37.0-47.0); HEMOGLOBIN 10.9 g/dl (12.0-16.0); LYMPHOCYTES # 2.2 10^3/ul (0.8-2.9); LYMPHOCYTES % 22.1 % (15.0-51.0); MEAN CORPUSCULAR HGB CONC 30.5 g/dl (32.0-37.0); MEAN CORPUSCULAR VOLUME 98.3 fl (82.0-101.0); MEAN PLATELET VOLUME 12.1 fl (7.4-10.4); MONOCYTE # 0.8 10^3/ul (0.3-0.9); MONOCYTES % 8.4 % (0.0-11.0); NEUTROPHIL # 6.5 10^3/ul (1.6-7.5); NEUTROPHILS % 65.8 % (39.0-77.0); PLATELET COUNT 278 10^3/UL (140-415); RED BLOOD COUNT 3.63 10^6/ul (4.20-5.40); RED CELL DISTRIBUTION WIDTH 14.1 % (11.5-14.5); WHITE BLOOD COUNT 9.9 10^3/ul (4.8-10.8)
[2016-12-25 06:42] LABS: INR 0.95; PROTIME 12.7 Sec (12.2-14.2)
[2016-12-25 06:43] LABS: PARTIAL THROMBOPLASTIN TIME 37.1 Sec (25.0-35.0)
[2016-12-25 06:50] LABS: ALBUMIN 3.6 g/dl (3.3-4.9); ALBUMIN/GLOBULIN RATIO 1.12; CALCIUM 8.8 mg/dl (8.4-10.2); CREATININE 0.92 mg/dl (0.44-1.00); POTASSIUM 4.4 mmol/L (3.5-5.1); TOTAL PROTEIN 6.8 g/dl (6.1-8.1)
[2016-12-25] MEDS: LEVOFLOXACIN 500 MG TAB PO SCH (06:50)
[2016-12-25] MEDS: HYDROCODONE/APAP (10/325) TAB PO PRN ×3 (06:50→18:43)
[2016-12-25] MEDS: INSULIN ASPART [NOVOLOG] 3 ML PEN SC SCH ×4 (07:55→22:00)
[2016-12-25] MEDS: ALBUTEROL/IPRATROPIUM (NEB) 3 ML AMP HHN SCH ×2 (07:57→16:24)
[2016-12-25] MEDS: FLECAINIDE 100 MG TAB PO SCH ×2 (09:00→21:49)
[2016-12-25] MEDS: TIOTROPIUM 18 MCG CAPSULE INHA DEV INH SCH (09:00)
[2016-12-25] MEDS: ONDANSETRON 4 MG INJ IV PRN ×2 (09:44→17:37)
[2016-12-25] MEDS: SALMETEROL/FLUTICASONE 250/50 INHA INH SCH ×2 (09:46→21:43)
[2016-12-25] MEDS: DIVALPROEX (EC) 125 MG TAB PO SCH ×3 (09:47→21:49)
[2016-12-25] MEDS: GABAPENTIN 300 MG CAP PO SCH ×3 (09:47→21:49)
[2016-12-25] MEDS: metFORMIN 500 MG TAB PO SCH ×2 (09:48→21:50)
[2016-12-25] MEDS: SOLIFENACIN 5 MG TAB PO SCH ×2 (09:48→10:32)
[2016-12-25] MEDS: POTASSIUM CHLORIDE (SR) 8 MEQ CAP PO SCH (09:48)
[2016-12-25] MEDS: LINAGLIPTIN 5 MG TABLET PO SCH (09:49)
[2016-12-25] MEDS: predniSONE 10 MG TAB PO SCH (09:49)
[2016-12-25] MEDS: EZETIMIBE 10 MG TAB PO SCH (09:49)
[2016-12-25] MEDS: TRIMETHOPRIM/SULFAMETHOX (DS) TAB PO SCH ×2 (09:49→21:49)
[2016-12-25] MEDS: ASPIRIN (EC) 81 MG TAB PO SCH (09:50)
[2016-12-25] MEDS: ESCITALOPRAM 10 MG TAB PO SCH (09:50)
[2016-12-25] MEDS: FUROSEMIDE 40 MG TAB PO SCH (09:50)
[2016-12-25] MEDS: POLYETHYLENE GLYCOL 17 GM PACKET PO SCH ×2 (09:50→21:50)
[2016-12-25] MEDS: VORICONAZOLE 200 MG TAB PO SCH ×2 (09:51→21:49)
[2016-12-25] MEDS: ENOXAPARIN 40 MG/0.4 ML SYG SC SCH ×2 (09:58→21:55)
[2016-12-25] MEDS: IBUPROFEN 600 MG TAB PO PRN (10:32)
[2016-12-25] MEDS ORDERED: MAGNESIUM SULFATE 2 GM/50 ML 50 ML IVPB ONE (11:30)
--- NOTE | 2016-12-25 11:34 | RADRPT ---
PROCEDURE: CT Cervical Spine without contrast. CLINICAL INDICATION: Neck pain. TECHNIQUE: Noncontrast CT of the cervical spine was performed with axial images. Coronal and sagitta l images were also performed. The administered radiation dose was CTDI vol = 22.29 mGy, DLP = 544.3 9 mGy-cm. One or more of the following dose reduction techniques were used: Automated exposure contr ol, Adjustment of the mA and/or kV according to patient size, or Use of iterative reconstruction neri hnique. COMPARISON: Noncontrast CT of the cervical spine from June 11, 2016. FINDINGS: Evaluation is mild to moderately limited due to motion degradation. There is preservation of the normal cervical lordosis. The vertebral body heights are maintained. There is no destructive osseous lesion. No acute fracture is identified. C2-C3 : There is mild disc space narrowing. There is 1 mm circumferential disc osteophyte complex wi thout spinal canal stenosis. There is severe right and mild left facet arthropathy and bilateral unc overtebral hypertrophy causing mild right without left foraminal stenosis. This level is unchanged. C3-C4 : There is moderate to severe disc space narrowing. There is a 3 mm left asymmetric disc osteo phyte complex indenting the spinal cord with moderate spinal canal stenosis. There is moderate bilat eral facet arthropathy and bilateral uncovertebral hypertrophy causing severe left and moderate to s evere right foraminal stenosis. This affects the exiting left greater than right C4 nerve roots. Thi s level is unchanged. C4-C5 : There is severe disc space narrowing. There is a 3 mm broad-based disc osteophyte complex im pinging the spinal cord with severe spinal canal stenosis. There is moderate bilateral facet arthrop athy and bilateral uncovertebral hypertrophy causing severe bilateral foraminal stenosis. This affec ts the exiting bilateral C5 nerve roots. This level is unchanged. C5-C6 : There is severe disc space narrowing. There is a 3 mm circumferential disc osteophyte comple x impinging the spinal cord with severe spinal canal stenosis. There is severe bilateral facet arthr opathy and bilateral uncovertebral hypertrophy affecting the exiting bilateral C6 nerve roots. This level is unchanged. C6-C7 : There is severe disc space narrowing. There is a 3 mm central disk/osteophyte protrusion imp inging the spinal cord with severe spinal canal stenosis. This level is unchanged. C7-T1 : There is no disc herniation, spinal canal, or foraminal stenosis. This level is unchanged. IMPRESSION: No significant change. Evaluation is mild to moderately limited due to motion degradation. 1. No acute fracture or subluxation. 2. Multilevel spinal canal stenosis with severe C4-C5 and severe C5-C6 spinal canal stenosis with sp inal cord impingement. There is limited evaluation of the spinal cord on CT. If clinically concern ed for spinal cord contusion, noncontrast MRI of the cervical spine may be performed as clinically w arranted. 3. Multilevel bilateral foraminal stenosis affecting the exiting right C4, bilateral C5, and bilater al C6 nerve roots as detailed above. 4. Reversal of the cervical lordosis suggesting muscle spasm and/or degenerative changes. Further findings as detailed above. RPTAT: PP .Barrie Jiménez MD, Date Time Electronically viewed and signed by .Barrie Jiménez MD, on 12/25/2016 11:34 .F/
--- NOTE | 2016-12-25 11:35 | RADRPT ---
PROCEDURE: CT Lumbar Spine Without Contrast CLINICAL INDICATION: Back pain. TECHNIQUE: Axial images were obtained of the lumbar spine with coronal and sagittal reconstruction s. No intravenous contrast was administered. CTDI 39 mGy, DLP 1353 mGy-cm One or more of the following dose reduction techniques were used: Automated exposure control Adjustment of the mA and/or kV according to patient size. Use of iterative reconstruction technique. DICOM images are available. COMPARISON: None FINDINGS: There is slight right convex curvature of the lumbar spine. Vertebral body heights are preserved. Th ere are no acute fractures. Examination is slightly limited due to body habitus with decreased resol ution of these images. No aggressive appearing bone lesions are visualized. The paravertebral soft tissues are unremarkable. T11-T12: Normal disc height but no central canal or neural foraminal narrowing. T12-L1: Normal disc height but no central canal or neural foraminal narrowing. L1-L2: Mild loss of disc height with vacuum disc and anterior endplate osteophytes. Broad 4 mm cent ral to left posterolateral disc protrusion with a small focus of calcification along peripheral aspe ct of the disc with moderate to severe central canal narrowing. No neural foraminal narrowing. Mild bilateral facet arthropathy. L2-L3: Mild loss of disc height with vacuum disc and anterior plate osteophytes. Mild annular bulge and posterolateral osseous ridging with mild central canal narrowing. Mild bilateral neural foramin al narrowing. L3-L4: Moderate to severe loss of disc height on the left due to the curvature with endplate osteop hytes more prominent along the left aspect and vacuum disc. Mild annular bulge and left greater than right posterolateral osseous ridging with moderate to severe central canal narrowing. Severe left a nd moderate right neural foraminal narrowing. Mild bilateral facet arthropathy. L4-L5: Moderate to severe loss of disc height with vacuum disc and endplate osteophytes. Annular bu lge with prominent posterior/posterolateral osseous ridging and moderate to severe central canal dorothy rowing. Severe bilateral neural foraminal narrowing. Moderate right and mild left facet arthropathy. L5-S1: Moderate to severe loss of disc height with vacuum disc. Mild annular bulge and bilateral po sterolateral osseous ridging with mild central canal narrowing. Severe bilateral neural foraminal na rrowing. Moderate right and mild left facet arthropathy. There are atherosclerotic calcifications within the aorta and its branches. There is similar appearance of the bilateral renal cysts measuring up to 3.9 cm compared to the prio r CT from 07/11/2014. A Mascorro catheter is visualized within the bladder. RPTAT: ZZ IMPRESSION: 1. No acute fracture. 2. Multilevel moderate to severe degenerative disc disease from L3-S1 with disc osteophytes resultin g in multilevel severe neural foraminal narrowing at bilateral L4-L5 and L5-S1 and on the left at L3 -L4. 3. Moderate to severe central canal narrowing at L1-L2 with a broad 4 mm central to left posterolate ral disc protrusion. 4. Moderate to severe central canal narrowing at L3-L4 and L4-L5 with annular bulges/disc osteophyte s. 5. Moderate right facet arthropathy at L4-L5 and L5-S1. .Nahed Rodríguez MD, Date Time Electronically viewed and signed by .Nahed Rodríguez MD, on 12/25/2016 11:35 .T/
--- NOTE | 2016-12-25 12:06 | RADRPT ---
PROCEDURE: XR Chest. CLINICAL INDICATION: 76-year-old female with congestive heart failure. TECHNIQUE: Single frontal view of the chest was obtained. COMPARISON: Chest x-ray 12/21/2016 02:31 p.m. FINDINGS: The soft tissues are generous. Monitoring electrodes project across the chest. There are degenerati ve osteophytes in the thoracic spine. There is a suboptimal inspiration. The heart is enlarged. The cardiomediastinal silhouette and hilar structures are normal. The pulmonary vasculature is increase d. There are vascular calcifications in the left sided aortic arch. There are bilateral perihilar i nterstitial infiltrates extending toward the periphery of the lungs. These have worsened compared to the prior study. A left pleural effusion is suspected. IMPRESSION: 1. Cardiomegaly with congestive heart failure and interstitial pulmonary edema which has worsened as compared to December 21, 2016. Superimposed infiltrates from a pneumonia cannot be excluded. 2. The left pleural effusion. 3. Obesity. 4. Atherosclerosis of the aortic arch. RPTAT:AAJJ Physician Steven Date Time Electronically viewed and signed by Physician Steven on 12/25/2016 12:06 ABIGAIL/
--- NOTE | 2016-12-25 12:53 | RADRPT ---
PROCEDURE: XR Pelvis. CLINICAL INDICATION: Pelvic pain. TECHNIQUE: Single AP view of the pelvis. COMPARISON: 06/07/2016. FINDINGS: This is a limited study as the patient is rotated to the left. There is no obvious fracture or dislo cation. There are degenerative changes of both hips with joint space narrowing and osteophytes. There is no lytic or blastic lesion. There are degenerative changes of the lower lumbar spine. There is a Mascorro catheter in the bladder. There is no radiopaque foreign body. IMPRESSION: 1. Limited study. 2. No obvious fracture or dislocation. 3. Degenerative changes of the hips with joint space narrowing and osteophytes. 4. Degenerative changes of the lower lumbar spine. 5. Mascorro catheter in the bladder. RPTAT: QQ .Andrzej Alexandre MD, Date Time Electronically viewed and signed by .Andrzej Alexandre MD, MD on 12/25/2016 12:52 .R/
--- NOTE | 2016-12-25 15:24 | PN ---
Date/Time of Note Date/Time of Note DATE: 12/25/16 TIME: 15:18 Assessment/Plan VTE Prophylaxis VTE Prophylaxis Intervention: other Lines/Catheters IV Catheter Type (from Nrsg): Saline Lock Urinary Cath still in place: Yes Reason Cath still needed: urinary retention Assessment/Plan Assessment/Plan - Hypomagnesium- Mg replaced, am lab 1. Acute CHF Exacerbation, acute on chronic, systolic and diastolic 2. Hypomagnesemia 3. Acute pulmonary edema due to acute CHF exacerbation 4. HTN 5. COPD 6. Possible Pneumonia 7. Constipation- lactulose 20 gm po daily, KUB Stat Plan: On PO Lasix 40mg po daily neurology consulted for possible seizures continue other med, avoid nephrotoxic medications if continues to have pulmonary edema, then we will switch her to IV lasix pt is on bactrim- not sure why she is on - will monitor her renal function and watch for Renal tubular acidosis will follow up AM labs ordered Dw dr Tasha Corey/ staff Subjective 24 Hr Interval Summary Free Text/Dictation afebrile - hypomagnesium - BUN/ Cr wnl -c/o constipation- lactolose. KUB - DW staff Respiratory: no complaints Cardiovascular: no complaints Gastrointestinal: constipation Genitourinary: no complaints Musculoskeletal: no complaints Exam/Review of Systems Vital Signs Vitals Vital Signs Date Time Temp Pulse Resp B/P Pulse Ox O2 Delivery O2 Flow Rate FiO2 12/25/16 15:09 98.4 75 20 132/64 93 12/25/16 08:00 Nasal Cannula 2.0 Intake and Output 12/24/16 12/24/16 12/25/16 14:59 22:59 06:59 Intake Total 100 ml 500 ml 400 ml Output Total 2000 ml 2000 ml Balance 100 ml -1500 ml -1600 ml Exam Constitutional: alert Respiratory: diminished breath sounds (bilaerally) Cardiovascular: nl pulses, other (s1s2) Gastrointestinal: non-tender, soft Extremities: normal pulses Neurological: nl speech Results Result Diagram: 12/25/16 0550 12/25/16 0550 Results 24 hrs Laboratory Tests Test 12/24/16 15:54 12/24/16 16:49 12/24/16 21:47 12/25/16 05:50 Bedside Glucose 141 136 171 White Blood Count 9.9 Red Blood Count 3.63 L Hemoglobin 10.9 L Hematocrit 35.7 L Mean Corpuscular Volume 98.3 Mean Corpuscular Hemoglobin 30.0 Mean Corpuscular Hemoglobin Concent 30.5 L Red Cell Distribution Width 14.1 Platelet Count 278 Mean Platelet Volume 12.1 H Neutrophils % 65.8 Lymphocytes % 22.1 Monocytes % 8.4 Eosinophils % 2.3 Basophils % 0.5 Nucleated Red Blood Cells % 0.0 Neutrophils # 6.5 Lymphocytes # 2.2 Monocytes # 0.8 Eosinophils # 0.2 Basophils # 0.1 Nucleated Red Blood Cells # 0.0 Prothrombin Time 12.7 Prothrombin Time Ratio 1.0 INR International Normalized Ratio 0.95 Activated Partial Thromboplast Time 37.1 H Sodium Level 141 Potassium Level 4.4 Chloride Level 102 Carbon Dioxide Level 30 Anion Gap 13 Blood Urea Nitrogen 15 Creatinine 0.92 Glucose Level 113 Calcium Level 8.8 Magnesium Level 1.5 L Total Bilirubin 0.0 L Direct Bilirubin 0.00 Indirect Bilirubin 0.0 Aspartate Amino Transf (AST/SGOT) 17 Alanine Aminotransferase (ALT/SGPT) 26 Alkaline Phosphatase 78 Total Protein 6.8 Albumin 3.6 Globulin 3.20 Albumin/Globulin Ratio 1.12 Test 12/25/16 07:56 12/25/16 12:07 Bedside Glucose 130 103 Medications Medications Current Medications Ondansetron HCl (Zofran Inj) 4 mg Q6H PRN IV NAUSEA AND/OR VOMITING Last administered on 12/25/16 09:44; Admin Dose 4 MG; Start 12/21/16 at 23:00 Morphine Sulfate (morphine) 2 mg Q4H PRN IV PAIN Last administered on 00:09; Admin Dose 2 MG; Start 12/21/16 at 23:00 Diagnostic Test (Pha) (Accu-Chek) 1 ea 02 XX Last administered on 12/23/16 02: 31; Admin Dose 1 EA; Start 12/22/16 at 02:00 Miscellaneous Information 1 ea NOTE XX ; Start 12/21/16 at 23:00 Glucose (Glutose) 15 gm Q15M PRN PO DECREASED GLUCOSE; Start 12/21/16 at 23:00 Glucose (Glutose) 22.5 gm Q15M PRN PO DECREASED GLUCOSE; Start 12/21/16 at 23: 00 Dextrose (D50w Syringe) 25 ml Q15M PRN IV DECREASED GLUCOSE; Start 12/21/16 at 23:00 Dextrose (D50w Syringe) 50 ml Q15M PRN IV DECREASED GLUCOSE; Start 12/21/16 at 23:00 Glucagon (Glucagen) 1 mg Q15M PRN IM DECREASED GLUCOSE; Start 12/21/16 at 23:00 Glucose (Glutose) 15 gm Q15M PRN BUCCAL DECREASED GLUCOSE; Start 12/21/16 at 23 :00 Aspirin (Halfprin) 81 mg DAILY PO Last administered on 12/25/16 09:50; Admin Dose 81 MG; Start 12/23/16 at 09:00 Bisacodyl (Dulcolax Supp) 10 mg DAILY PRN IN CONSTIPATION Last administered on 12/25/16 12:41; Admin Dose 10 MG; Start 12/22/16 at 17:00 Clonidine (Catapres) 0.1 mg DAILY PRN PO HTN; Start 12/22/16 at 17:00 Diphenhydramine HCl (Benadryl) 25 mg BID PRN PO ITCHING; Start 12/22/16 at 17: 00 Docusate Sodium (Colace) 200 mg BID PRN PO CONSTIPATION; Start 12/22/16 at 17: 00 Escitalopram Oxalate (Lexapro) 10 mg DAILY PO Last administered on 12/25/16 09:50; Admin Dose 10 MG; Start 12/23/16 at 09:00 EZETIMIBE (Zetia) 10 mg DAILY PO Last administered on 12/25/16 09:49; Admin Dose 10 MG; Start 12/23/16 at 09:00 Furosemide (Lasix) 40 mg DAILY PO Last administered on 12/25/16 09:50; Admin Dose 40 MG; Start 12/23/16 at 09:00 Gabapentin (Neurontin) 300 mg TID PO Last administered on 12/25/16 13:01; Admin Dose 300 MG; Start 12/22/16 at 21:00 Linagliptin (Tradjenta) 5 mg DAILY PO Last administered on 12/25/16 09:49; Admin Dose 5 MG; Start 12/23/16 at 09:00 Metformin HCl (Glucophage) 1,000 mg BID PO Last administered on 12/25/16 09: 48; Admin Dose 1,000 MG; Start 12/22/16 at 21:00 Potassium Chloride (Micro-K) 8 meq DAILY PO Last administered on 12/25/16 09: 48; Admin Dose 8 MEQ; Start 12/23/16 at 09:00 Prednisone (Prednisone) 10 mg DAILY PO Last administered on 12/25/16 09:49; Admin Dose 10 MG; Start 12/23/16 at 09:00 Salmeterol Xinafoate/ Fluticasone (Advair 250/50 Diskus) 1 inh BID INH Last administered on 12/25/16 09:46; Admin Dose 1 INH; Start 12/22/16 at 21:00 Solifenacin (Vesicare) 5 mg DAILY PO Last administered on 12/25/16 10:32; Admin Dose 5 MG; Start 12/23/16 at 09:00 Trimethoprim/ Sulfamethoxazole (Bactrim (Ds)) 1 tab BID PO Last administered on 12/25/16 09:49; Admin Dose 1 TAB; Start 12/22/16 at 21:00 Tiotropium [place] (Spiriva) 1 inh DAILY INH Last administered on 12/24/16 08 :50; Admin Dose 1 INH; Start 12/23/16 at 09:00 Voriconazole 200 mg 200 mg BID PO Last administered on 12/25/16 09:51; Admin Dose 200 MG; Start 12/22/16 at 21:00 Ferric Sodium Gluconate Complex/ Sodium Chloride (Ferrlecit/NS) 110 ml @ 110 mls/hr Q24H IVPB Last administered on 12/24/16 21:36; Admin Dose 110 MLS/HR; Start 12/22/16 at 20:00; Stop 12/26/16 at 20:59 Enoxaparin Sodium (Lovenox) 80 mg BID SC Last administered on 12/25/16 09:58 ; Admin Dose 80 MG; Start 12/22/16 at 21:00 Flecainide Acetate (Tambocor) 150 mg BID PO Last administered on 12/24/16 21: 37; Admin Dose 150 MG; Start 12/22/16 at 21:00 Polyethylene Glycol (Miralax) 17 gm BID PO Last administered on 12/25/16 09: 50; Admin Dose 17 GM; Start 12/22/16 at 21:00 Lorazepam (Ativan) 0.5 mg Q4H PRN PO ANXIETY; Start 12/22/16 at 20:30 Acetaminophen/ Hydrocodone Bitart ([place] ()) 1 tab Q6H PRN PO Pain Last administered on 12/25/16 12:57; Admin Dose 1 TAB; Start 12/23/16 at 15:12 Ibuprofen (Motrin) 600 mg Q6H PRN PO PAIN OR TEMP ABOVE 38C Last administered on 12/25/16 10:32; Admin Dose 600 MG; Start 12/23/16 at 14:00 Divalproex Sodium (Depakote) 125 mg TID PO Last administered on 12/25/16 13: 01; Admin Dose 125 MG; Start 12/23/16 at 21:00 Levofloxacin (Levaquin) 500 mg DAILY@06 PO Last administered on 12/25/16 06: 50; Admin Dose 500 MG; Start 12/25/16 at 06:00 WILLARD SMALL Dec 25, 2016 15:24
--- NOTE | 2016-12-25 16:40 | RADRPT ---
PROCEDURE: XR Abdomen. CLINICAL INDICATION: Abdominal pain and constipation. TECHNIQUE: AP supine abdomen x-ray. COMPARISON: None. FINDINGS: The bowel gas pattern is normal. There is no evidence of obstruction. There are no abnormal calcifications overlying the urinary tracts. There are degenerative changes of the spine. IMPRESSION: 1. Degenerative changes of the spine. 2. Otherwise unremarkable abdomen radiograph. RPTAT: QQ .Andrzej Alexandre MD, MD Date Time Electronically viewed and signed by .Andrzej Alexandre MD, on 12/25/2016 16:39 .R/
[2016-12-25] MEDS ORDERED: MAGNESIUM CITRATE 300 ML BTL PO ONE (18:00)
--- NOTE | 2016-12-25 18:11 | PN ---
Date/Time of Note Date/Time of Note DATE: 12/25/16 TIME: 18:03 Assessment/Plan VTE Prophylaxis VTE Prophylaxis Intervention: ambulation VTE Contraindication Reason: peripheral vascular disease Lines/Catheters IV Catheter Type (from Nrsg): Saline Lock Central line still needed: No Urinary Cath still in place: Yes Reason Cath still needed: urinary retention Assessment/Plan Assessment/Plan 1. Congestive heart failure exacerbation with pulmonary edema.Improving 2. Bad odor from the urine with recurrent hematuria. 3.Low abdominal pain and llq abd pain 4. Leukocytosis 5. History of having palpitations-now bradycardic; lowest rate 45- now 63bpm. 6. History of having bronchial asthma, now stable. 7. Wound of the postsurgical scar, right-sided abdomen, healed. 8. Status post cholecystectomy. 9. Postmenstrual syndrome. 10. Anxiety. 11. Claustrophobia. 12. Dyslipidemia. 13. Diabetes type 2. 14. History of having carbon dioxide retention. 15. Anemia of chronic disease with recent loss. 16. History of chronic kidney disease, improved. 17. History of having low iron and low magnesium levels. 18. Pain syndrome. 19. Major depression. 20. Altered level of consciousness. 21. Diverticulitis. 22. Left-sided chest pain. 23.carbon dioxide narcosis (Hx of) 24.Trophic changes of both legs with change of a color. 25.Pilling of the skin of nailbeds of both hands with deformities and trace of blood and swelling.26. 26.11 years bedridden 27.Decubitus of t he left gluteal area with mild redness of the calcaneal skin 28.Severe deconditioning 29.Daytime sleepiness 30.Severe krupa of knees, hips ans ankle joints 31.Calcaneal pain. 32.Umbilical reducible hernia 4-5cm in diameter.Postsurgical. 33.Chronic norco,percocet, and other controlled substance user. 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 Hallucinations, confusion, fear on and off 37.Hypertension, now normotensive. 38.Low magnesium and low iron levels 39.Fear of . 40.Morbid (severe) obesity due to excess calories (BMI 40 or greater) ( ICD10 E66.01 ) 41.Spinal stenosis with radiculopathy 42.KRUPA of hips and knees 43.Pain in right brerast with mildly tender mass. 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 No vertebral fx. 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 . Subjective 24 Hr Interval Summary Free Text/Dictation Fearful that something bad will happen with her. Hallucinations on and off. Unable to tolerate close spaces and crowd. become panicky. Constitutional: disoriented, poor po, No chills, No diaphoresis, No febrile, No improved, No no complaints, No other, No requiring IVF, No requiring O2 Eyes: No discharge, No no complaints, No other, No pain, No redness, No visual change ENT: No bleeding, No congestion, No discharge, No dysphagia, No no complaints, No other, No pain, No sore throat Respiratory: shortness of breath, No cough, No no complaints, No other, No pain, No pleuritic pain, No sputum, No wheezing Cardiovascular: lightheadedness, orthopenea, palpitations, paroxysmal nocturnal dyspnea Gastrointestinal: constipation, decreased appetite, flatus, nausea, pain, No blood, No diarrhea, No no complaints, No other, No passing stool, No vomiting Genitourinary: dysuria Musculoskeletal: bone/joint pain, neck pain, No back pain, No no complaints, No other, No restricted range of motion, No swelling Skin: No bruising, No erythema, No laceration, No no complaints, No other, No pruritis, No rash, No skin lesions Neurologic: confusion, dizziness, No focal-weakness, No headache, No no complaints, No other, No seizure, No syncope Psychological: anxiety, confusion, depression Exam/Review of Systems Vital Signs Vitals Vital Signs Date Time Temp Pulse Resp B/P Pulse Ox O2 Delivery O2 Flow Rate FiO2 12/25/16 16:25 73 22 96 Nasal Cannula 2.0 12/25/16 15:09 98.4 132/64 Intake and Output 12/24/16 12/24/16 12/25/16 15:00 23:00 07:00 Intake Total 100 ml 500 ml 400 ml Output Total 2000 ml 2000 ml Balance 100 ml -1500 ml -1600 ml Exam Constitutional: alert, distress, frail, obese, oriented, well developed, No non-verbal, No other Psych: anxiety, confusion, depression, nl mood/affect, no complaints, other, suicidal Head: atraumatic, No hematomas, No lacerations, No normocephalic, No other Eyes: EOMI, PERRL, nl lids, No fundi, disc, No icteric, No nl conjunctiva, No nl sclera, No other ENMT: nl nasal mucosa & septum, No intubated, No mucosa pink and moist, No nl external ears & nose, No nl lips & teeth, No other, No tympanic membranes Neck: bruits, jvd, No masses, No non-tender, No nuchal rigidity, No other, No supple, No thyromegaly Respiratory: clear to auscultation, congested cough, diminished breath sounds, other (right breadst tewnderness with small palpable mass medial to the neple.), No crackles/rales, No intercostal retraction, No labored breathing, No normal air movement, No respirations, No tactile fremitus, No wheezing Cardiovascular: bruits, edema, jugular venous distention (JVD), nl pulses, regular rate and rhythm, No S3, No S4, No diastolic murmur, No gallop, No irregular rhythm, No murmurs /extra sounds, No other, No rub, No systolic murmur Gastrointestinal: ascites, bowel sounds, distended, firm, other (pannus.), surgical scars, No hepatomegaly, No mass, No nl liver, spleen, No non-tender, No rebound or guarding, No soft, No splenomegaly, No tender Musculoskeletal: joint tenderness, muscle tone, muscle weakness, range of motion, No nl extremities to inspection, No nl gait and stance, No other, No spine non-tender, No swelling Extremities: edema, tenderness, No calf tenderness, No clubbing, No cyanosis, No normal pulses, No other, No palpable cord, No pitting pedal edema Neurological: BUCKLE SORTER II-XII intact (decreased hearing.), confused, lethargic Skin: No diaphoresis, No ecchymosis, No laceration, No nl turgor, No other, No puncture, No rash or lesions Lymph: No enlarged, No nl lymph nodes, No nontender, No other Results Result Diagram: 12/25/16 0550 12/25/16 0550 Results 24 hrs Laboratory Tests Test 12/24/16 21:47 12/25/16 05:50 12/25/16 07:56 12/25/16 12:07 Bedside Glucose 171 130 103 White Blood Count 9.9 Red Blood Count 3.63 L Hemoglobin 10.9 L Hematocrit 35.7 L Mean Corpuscular Volume 98.3 Mean Corpuscular Hemoglobin 30.0 Mean Corpuscular Hemoglobin Concent 30.5 L Red Cell Distribution Width 14.1 Platelet Count 278 Mean Platelet Volume 12.1 H Neutrophils % 65.8 Lymphocytes % 22.1 Monocytes % 8.4 Eosinophils % 2.3 Basophils % 0.5 Nucleated Red Blood Cells % 0.0 Neutrophils # 6.5 Lymphocytes # 2.2 Monocytes # 0.8 Eosinophils # 0.2 Basophils # 0.1 Nucleated Red Blood Cells # 0.0 Prothrombin Time 12.7 Prothrombin Time Ratio 1.0 INR International Normalized Ratio 0.95 Activated Partial Thromboplast Time 37.1 H Sodium Level 141 Potassium Level 4.4 Chloride Level 102 Carbon Dioxide Level 30 Anion Gap 13 Blood Urea Nitrogen 15 Creatinine 0.92 Glucose Level 113 Calcium Level 8.8 Magnesium Level 1.5 L Total Bilirubin 0.0 L Direct Bilirubin 0.00 Indirect Bilirubin 0.0 Aspartate Amino Transf (AST/SGOT) 17 Alanine Aminotransferase (ALT/SGPT) 26 Alkaline Phosphatase 78 Total Protein 6.8 Albumin 3.6 Globulin 3.20 Albumin/Globulin Ratio 1.12 Test 12/25/16 17:42 Bedside Glucose 110 Medications Medications Current Medications Ondansetron HCl (Zofran Inj) 4 mg Q6H PRN IV NAUSEA AND/OR VOMITING Last administered on 12/25/16 17:37; Admin Dose 4 MG; Start 12/21/16 at 23:00 Morphine Sulfate (morphine) 2 mg Q4H PRN IV PAIN Last administered on 00:09; Admin Dose 2 MG; Start 12/21/16 at 23:00 Diagnostic Test (Pha) (Accu-Chek) 1 ea 02 XX Last administered on 12/23/16 02: 31; Admin Dose 1 EA; Start 12/22/16 at 02:00 Miscellaneous Information 1 ea NOTE XX ; Start 12/21/16 at 23:00 Glucose (Glutose) 15 gm Q15M PRN PO DECREASED GLUCOSE; Start 12/21/16 at 23:00 Glucose (Glutose) 22.5 gm Q15M PRN PO DECREASED GLUCOSE; Start 12/21/16 at 23: 00 Dextrose (D50w Syringe) 25 ml Q15M PRN IV DECREASED GLUCOSE; Start 12/21/16 at 23:00 Dextrose (D50w Syringe) 50 ml Q15M PRN IV DECREASED GLUCOSE; Start 12/21/16 at 23:00 Glucagon (Glucagen) 1 mg Q15M PRN IM DECREASED GLUCOSE; Start 12/21/16 at 23:00 Glucose (Glutose) 15 gm Q15M PRN BUCCAL DECREASED GLUCOSE; Start 12/21/16 at 23 :00 Aspirin (Halfprin) 81 mg DAILY PO Last administered on 12/25/16 09:50; Admin Dose 81 MG; Start 12/23/16 at 09:00 Bisacodyl (Dulcolax Supp) 10 mg DAILY PRN HI CONSTIPATION Last administered on 12/25/16 12:41; Admin Dose 10 MG; Start 12/22/16 at 17:00 Clonidine (Catapres) 0.1 mg DAILY PRN PO HTN; Start 12/22/16 at 17:00 Diphenhydramine HCl (Benadryl) 25 mg BID PRN PO ITCHING; Start 12/22/16 at 17: 00 Docusate Sodium (Colace) 200 mg BID PRN PO CONSTIPATION; Start 12/22/16 at 17: 00 Escitalopram Oxalate (Lexapro) 10 mg DAILY PO Last administered on 12/25/16 09:50; Admin Dose 10 MG; Start 12/23/16 at 09:00 EZETIMIBE (Zetia) 10 mg DAILY PO Last administered on 12/25/16 09:49; Admin Dose 10 MG; Start 12/23/16 at 09:00 Furosemide (Lasix) 40 mg DAILY PO Last administered on 12/25/16 09:50; Admin Dose 40 MG; Start 12/23/16 at 09:00 Gabapentin (Neurontin) 300 mg TID PO Last administered on 12/25/16 13:01; Admin Dose 300 MG; Start 12/22/16 at 21:00 Linagliptin (Tradjenta) 5 mg DAILY PO Last administered on 12/25/16 09:49; Admin Dose 5 MG; Start 12/23/16 at 09:00 Metformin HCl (Glucophage) 1,000 mg BID PO Last administered on 12/25/16 09: 48; Admin Dose 1,000 MG; Start 12/22/16 at 21:00 Potassium Chloride (Micro-K) 8 meq DAILY PO Last administered on 12/25/16 09: 48; Admin Dose 8 MEQ; Start 12/23/16 at 09:00 Prednisone (Prednisone) 10 mg DAILY PO Last administered on 12/25/16 09:49; Admin Dose 10 MG; Start 12/23/16 at 09:00 Salmeterol Xinafoate/ Fluticasone (Advair 250/50 Diskus) 1 inh BID INH Last administered on 12/25/16 09:46; Admin Dose 1 INH; Start 12/22/16 at 21:00 Solifenacin (Vesicare) 5 mg DAILY PO Last administered on 12/25/16 10:32; Admin Dose 5 MG; Start 12/23/16 at 09:00 Trimethoprim/ Sulfamethoxazole (Bactrim (Ds)) 1 tab BID PO Last administered on 12/25/16 09:49; Admin Dose 1 TAB; Start 12/22/16 at 21:00 Tiotropium [place] (Spiriva) 1 inh DAILY INH Last administered on 12/24/16 08 :50; Admin Dose 1 INH; Start 12/23/16 at 09:00 Voriconazole 200 mg 200 mg BID PO Last administered on 12/25/16 09:51; Admin Dose 200 MG; Start 12/22/16 at 21:00 Ferric Sodium Gluconate Complex/ Sodium Chloride (Ferrlecit/NS) 110 ml @ 110 mls/hr Q24H IVPB Last administered on 12/24/16 21:36; Admin Dose 110 MLS/HR; Start 12/22/16 at 20:00; Stop 12/26/16 at 20:59 Enoxaparin Sodium (Lovenox) 80 mg BID SC Last administered on 12/25/16 09:58 ; Admin Dose 80 MG; Start 12/22/16 at 21:00 Flecainide Acetate (Tambocor) 150 mg BID PO Last administered on 12/24/16 21: 37; Admin Dose 150 MG; Start 12/22/16 at 21:00 Polyethylene Glycol (Miralax) 17 gm BID PO Last administered on 12/25/16 09: 50; Admin Dose 17 GM; Start 12/22/16 at 21:00 Lorazepam (Ativan) 0.5 mg Q4H PRN PO ANXIETY; Start 12/22/16 at 20:30 Acetaminophen/ Hydrocodone Bitart ([place] (10/325)) 1 tab Q6H PRN PO Pain Last administered on 12/25/16 12:57; Admin Dose 1 TAB; Start 12/23/16 at 15:12 Ibuprofen (Motrin) 600 mg Q6H PRN PO PAIN OR TEMP ABOVE 38C Last administered on 12/25/16 10:32; Admin Dose 600 MG; Start 12/23/16 at 14:00 Divalproex Sodium (Depakote) 125 mg TID PO Last administered on 12/25/16 13: 01; Admin Dose 125 MG; Start 12/23/16 at 21:00 Levofloxacin (Levaquin) 500 mg DAILY@06 PO Last administered on 12/25/16 06: 50; Admin Dose 500 MG; Start 12/25/16 at 06:00 Lactulose (Enulose) 20 gm DAILY PO ; Start 12/25/16 at 21:00 STONE HERNANDEZ MD Dec 25, 2016 18:11
[2016-12-25] MEDS: AMOXICILLIN 500 MG CAP PO SCH (19:23)
[2016-12-25] MEDS ORDERED: LACTULOSE 30ML CUP PO SCH (21:00)
[2016-12-25] MEDS: SOD FERRIC GLUC COMPLX 125 MG in SOD CHLORIDE 0.9% 100 ML IVPB SCH (21:43)
--- NOTE | 2016-12-25 22:13 | NEURPT ---
DATE: The patient is 76 years old. EGD done using 10-20 International electrode system with photic stimula tion. Bilateral occipital hemispheres showed delta and theta waves 4-6 Hz. No epileptiform d ischarge or seizure activity is recorded. Photic stimulation done did not elicit drive. IMPRESSION: This is an abnormal electroencephalogram, showed generalized slowing consistent with a history of underlying dementia of possible Alzheimer disease. No epileptiform discharge or seizure activity is recorded. Continuation with Depakote is recommended for seizure precautions as well as mood stabilizer. Again, thank you, Dr. Ruiz, for asking me to see the patient with you. Dictated By: MOSES CENTENO/JESUS Conf#: [id number] DID#: [id number]
[2016-12-26] VITALS (11 sets, daily range): BP systolic 126–139; BP diastolic 55–85; PULSE 70–75; RESP 17–22
[2016-12-26] MEDS: ACCU-CHEK XX SCH ×2 (00:23→23:30)
[2016-12-26] MEDS: AMOXICILLIN 500 MG CAP PO SCH ×5 (00:30→23:30)
[2016-12-26] MEDS: HYDROCODONE/APAP (10/325) TAB PO PRN ×4 (00:30→23:29)
[2016-12-26] MEDS: DOCUSATE SODIUM 100 MG CAP PO PRN ×3 (00:41→22:48)
[2016-12-26] MEDS: TIOTROPIUM 18 MCG CAPSULE INHA DEV INH SCH ×2 (00:42→10:02)
[2016-12-26] MEDS: ONDANSETRON 4 MG INJ IV PRN (00:47)
[2016-12-26] MEDS: ALBUTEROL/IPRATROPIUM (NEB) 3 ML AMP HHN SCH ×3 (00:53→15:00)
[2016-12-26] MEDS: LEVOFLOXACIN 500 MG TAB PO SCH (06:00)
[2016-12-26] MEDS: IBUPROFEN 600 MG TAB PO PRN ×2 (06:08→17:40)
[2016-12-26] MEDS: INSULIN ASPART [NOVOLOG] 3 ML PEN SC SCH ×4 (07:54→22:46)
[2016-12-26] MEDS: SOLIFENACIN 5 MG TAB PO SCH ×2 (09:00→09:41)
[2016-12-26] MEDS: SALMETEROL/FLUTICASONE 250/50 INHA INH SCH ×2 (09:37→22:50)
[2016-12-26] MEDS: TRIMETHOPRIM/SULFAMETHOX (DS) TAB PO SCH (09:38)
[2016-12-26] MEDS: POTASSIUM CHLORIDE (SR) 8 MEQ CAP PO SCH (09:39)
[2016-12-26] MEDS: POLYETHYLENE GLYCOL 17 GM PACKET PO SCH ×2 (09:39→22:49)
[2016-12-26] MEDS: GABAPENTIN 300 MG CAP PO SCH ×3 (09:40→22:49)
[2016-12-26] MEDS: EZETIMIBE 10 MG TAB PO SCH (09:41)
[2016-12-26] MEDS: predniSONE 10 MG TAB PO SCH (09:42)
[2016-12-26] MEDS: metFORMIN 500 MG TAB PO SCH ×2 (09:42→22:49)
[2016-12-26] MEDS: ASPIRIN (EC) 81 MG TAB PO SCH (09:42)
[2016-12-26] MEDS: FUROSEMIDE 40 MG TAB PO SCH (09:43)
[2016-12-26] MEDS: VORICONAZOLE 200 MG TAB PO SCH ×2 (09:43→22:49)
[2016-12-26] MEDS: LINAGLIPTIN 5 MG TABLET PO SCH (09:43)
[2016-12-26] MEDS: ESCITALOPRAM 10 MG TAB PO SCH (09:43)
[2016-12-26] MEDS: DIVALPROEX (EC) 125 MG TAB PO SCH ×3 (09:43→22:48)
[2016-12-26] MEDS: FLECAINIDE 100 MG TAB PO SCH ×2 (09:44→22:48)
[2016-12-26] MEDS: ENOXAPARIN 40 MG/0.4 ML SYG SC SCH ×2 (09:55→23:07)
[2016-12-26] MEDS: LACTULOSE 30ML CUP PO SCH (10:02)
--- NOTE | 2016-12-26 13:37 | CONS ---
Date/Time of Note Date/Time of Note DATE: 12/26/16 TIME: 13:27 Assessment/Plan Assessment/Plan Additional Assessment/Plan 1. Hypomagnesium- Mg replaced, am lab- no mag result yet 2. Acute CHF Exacerbation, acute on chronic, systolic and diastolic 3. Acute pulmonary edema due to acute CHF exacerbation 4. HTN 5. COPD 6. Possible Pneumonia 7. Constipation- lactulose 20 gm po daily, KUB Stat- no evidence of obstruction. - on bisacodyl 10 mg po daily prn - gi consult recommended Plan: -On PO Lasix 40mg po daily -neurology consulted for possible seizures continue other med, avoid nephrotoxic medications -if continues to have pulmonary edema, then we will switch her to IV lasix pt is on Bactrim- not sure why she is on - will monitor her renal function and watch for Renal tubular acidosis will follow up AM labs ordered Dw Dr Tasha Corey/staff Consultation Date/Type/Reason Admit Date/Time Dec 21, 2016 at 17:19 Initial Consult Date 12/23/16 Type of Consultation: NEPHROLOGY Referring Provider: STONE HERNANDEZ MD 24 HR Interval Summary Free Text/Dictation afebrile, c/o constipation, KUB - no obstruction - BUN/Cr WNL - dw staff - Detailed Summary Respiratory: no complaints Cardiovascular: no complaints Gastrointestinal: constipation Musculoskeletal: no complaints Skin: no complaints Exam/Review of Systems Vital Signs Vitals Vital Signs Date Time Temp Pulse Resp B/P Pulse Ox O2 Delivery O2 Flow Rate FiO2 12/26/16 12:14 98.2 75 22 128/62 97 12/26/16 12:13 Nasal Cannula 2.0 Intake and Output 12/25/16 12/25/16 12/26/16 15:00 23:00 07:00 Intake Total 1006 ml 520 ml Output Total 1200 ml Balance -194 ml 520 ml Exam Constitutional: alert Respiratory: diminished breath sounds (bilaterally) Cardiovascular: nl pulses, other (s1s2) Musculoskeletal: nl extremities to inspection Extremities: normal pulses Neurological: nl mental status, nl speech Results Result Diagram: 12/25/16 0550 12/25/16 0550 Results 24 hrs Laboratory Tests Test 12/25/16 17:42 12/25/16 21:59 12/26/16 03:11 12/26/16 05:41 Bedside Glucose 110 94 132 Magnesium Level 2.2 Test 12/26/16 07:52 12/26/16 12:23 Bedside Glucose 137 135 Medications Medications Current Medications Ondansetron HCl (Zofran Inj) 4 mg Q6H PRN IV NAUSEA AND/OR VOMITING Last administered on 12/26/16 00:47; Admin Dose 4 MG; Start 12/21/16 at 23:00 Morphine Sulfate (morphine) 2 mg Q4H PRN IV PAIN Last administered on 00:09; Admin Dose 2 MG; Start 12/21/16 at 23:00 Diagnostic Test (Pha) (Accu-Chek) 1 ea 02 XX Last administered on 12/23/16 02: 31; Admin Dose 1 EA; Start 12/22/16 at 02:00 Miscellaneous Information 1 ea NOTE XX ; Start 12/21/16 at 23:00 Glucose (Glutose) 15 gm Q15M PRN PO DECREASED GLUCOSE; Start 12/21/16 at 23:00 Glucose (Glutose) 22.5 gm Q15M PRN PO DECREASED GLUCOSE; Start 12/21/16 at 23: 00 Dextrose (D50w Syringe) 25 ml Q15M PRN IV DECREASED GLUCOSE; Start 12/21/16 at 23:00 Dextrose (D50w Syringe) 50 ml Q15M PRN IV DECREASED GLUCOSE; Start 12/21/16 at 23:00 Glucagon (Glucagen) 1 mg Q15M PRN IM DECREASED GLUCOSE; Start 12/21/16 at 23:00 Glucose (Glutose) 15 gm Q15M PRN BUCCAL DECREASED GLUCOSE; Start 12/21/16 at 23 :00 Aspirin (Halfprin) 81 mg DAILY PO Last administered on 12/26/16 09:42; Admin Dose 81 MG; Start 12/23/16 at 09:00 Bisacodyl (Dulcolax Supp) 10 mg DAILY PRN [place] CONSTIPATION Last administered on 12/25/16 12:41; Admin Dose 10 MG; Start 12/22/16 at 17:00 Clonidine (Catapres) 0.1 mg DAILY PRN PO HTN; Start 12/22/16 at 17:00 Diphenhydramine HCl (Benadryl) 25 mg BID PRN PO ITCHING; Start 12/22/16 at 17: 00 Docusate Sodium (Colace) 200 mg BID PRN PO CONSTIPATION Last administered on 09:38; Admin Dose 200 MG; Start 12/22/16 at 17:00 Escitalopram Oxalate (Lexapro) 10 mg DAILY PO Last administered on 12/26/16 09:43; Admin Dose 10 MG; Start 12/23/16 at 09:00 EZETIMIBE (Zetia) 10 mg DAILY PO Last administered on 12/26/16 09:41; Admin Dose 10 MG; Start 12/23/16 at 09:00 Furosemide (Lasix) 40 mg DAILY PO Last administered on 12/26/16 09:43; Admin Dose 40 MG; Start 12/23/16 at 09:00 Gabapentin (Neurontin) 300 mg TID PO Last administered on 12/26/16 12:38; Admin Dose 300 MG; Start 12/22/16 at 21:00 Linagliptin (Tradjenta) 5 mg DAILY PO Last administered on 12/26/16 09:43; Admin Dose 5 MG; Start 12/23/16 at 09:00 Metformin HCl (Glucophage) 1,000 mg BID PO Last administered on 12/26/16 09: 42; Admin Dose 1,000 MG; Start 12/22/16 at 21:00 Potassium Chloride (Micro-K) 8 meq DAILY PO Last administered on 12/26/16 09: 39; Admin Dose 8 MEQ; Start 12/23/16 at 09:00 Prednisone (Prednisone) 10 mg DAILY PO Last administered on 12/26/16 09:42; Admin Dose 10 MG; Start 12/23/16 at 09:00 Salmeterol Xinafoate/ Fluticasone (Advair 250/50 Diskus) 1 inh BID INH Last administered on 12/26/16 09:37; Admin Dose 1 INH; Start 12/22/16 at 21:00 Solifenacin (Vesicare) 5 mg DAILY PO Last administered on 12/26/16 09:00; Admin Dose 5 MG; Start 12/23/16 at 09:00 Trimethoprim/ Sulfamethoxazole (Bactrim (Ds)) 1 tab BID PO Last administered on 12/26/16 09:38; Admin Dose 1 TAB; Start 12/22/16 at 21:00 Tiotropium [place] (Spiriva) 1 inh DAILY INH Last administered on 12/26/16 10 :02; Admin Dose 1 INH; Start 12/23/16 at 09:00 Voriconazole 200 mg 200 mg BID PO Last administered on 12/26/16 09:43; Admin Dose 200 MG; Start 12/22/16 at 21:00 Ferric Sodium Gluconate Complex/ Sodium Chloride (Ferrlecit/NS) 110 ml @ 110 mls/hr Q24H IVPB Last administered on 12/25/16 21:43; Admin Dose 110 MLS/HR; Start 12/22/16 at 20:00; Stop 12/26/16 at 20:59 Enoxaparin Sodium (Lovenox) 80 mg BID SC Last administered on 12/26/16 09:55 ; Admin Dose 80 MG; Start 12/22/16 at 21:00 Flecainide Acetate (Tambocor) 150 mg BID PO Last administered on 12/26/16 09: 44; Admin Dose 150 MG; Start 12/22/16 at 21:00 Polyethylene Glycol (Miralax) 17 gm BID PO Last administered on 12/26/16 09: 39; Admin Dose 17 GM; Start 12/22/16 at 21:00 Lorazepam (Ativan) 0.5 mg Q4H PRN PO ANXIETY; Start 12/22/16 at 20:30 Acetaminophen/ Hydrocodone Bitart ([place] (10/325)) 1 tab Q6H PRN PO Pain Last administered on 12/26/16 07:51; Admin Dose 1 TAB; Start 12/23/16 at 15:12 Ibuprofen (Motrin) 600 mg Q6H PRN PO PAIN OR TEMP ABOVE 38C Last administered on 12/26/16 06:08; Admin Dose 600 MG; Start 12/23/16 at 14:00 Divalproex Sodium (Depakote) 125 mg TID PO Last administered on 12/26/16 12: 38; Admin Dose 125 MG; Start 12/23/16 at 21:00 Levofloxacin (Levaquin) 500 mg DAILY@06 PO Last administered on 12/26/16 06: 00; Admin Dose 500 MG; Start 12/25/16 at 06:00 Amoxicillin (Amoxicillin) 500 mg Q6 PO Last administered on 12/26/16 12:38; Admin Dose 500 MG; Start 12/25/16 at 19:00 Lactulose (Enulose) 20 gm DAILY PO Last administered on 12/26/16t 10:02; Admin Dose 20 GM; Start 12/26/16 at 09:00 WILLARD SMALL Dec 26, 2016 13:37
--- NOTE | 2016-12-26 15:04 | CONS ---
Date/Time of Note Date/Time of Note DATE: 12/26/16 TIME: 14:50 Assessment/Plan Assessment/Plan Additional Assessment/Plan 76 year old morbidly obese female (BMI>60) with back pain and CT showing lumbar stenosis. She is not a surgical candidate at the present time due to morbid obesity (would not tolerate prone positioning) and multiple other medical problems. Ideally, the patient would be further evaluated for her back pain after recovery from current illness as an outpatient. I would recommend MRI, or if that is not possible, CT myelogram to better assess the degree of stenosis present as CT is not diagnostic in this regard. She should follow up with a pain MD for her conservative approach to her back pain until she could conceivably tolerate surgery (BMI <40?). She may benefit from bariatric surgery in this regard. Thank you. Consultation Date/Type/Reason Admit Date/Time Dec 21, 2016 at 17:19 Date of Consultation: Dec 26, 2016 Type of Consultation: neurosurgery Reason for Consultation spinal stenosis Hx of Present Illness 76 year old morbidly obese female with dementia per history and who has not been ambulatory for >10 years. She was seen in [facility] for SOB and admitted for PNS and related complaints. Evidently during this admission she complained of back pain and CT of the lumbar spine was ordered showing lumbar stenosis. She has paresthesias of bilateral lower extremities but is able to move her legs. Neurosurgical evaluation was requested for lumbar stenosis. Constitutional: disoriented, poor po, No chills, No diaphoresis, No febrile, No improved, No no complaints, No other, No requiring IVF, No requiring O2 Eyes: No discharge, No no complaints, No other, No pain, No redness, No visual change ENT: No bleeding, No congestion, No discharge, No dysphagia, No no complaints, No other, No pain, No sore throat Respiratory: no complaints Cardiovascular: no complaints Gastrointestinal: constipation Genitourinary: dysuria Musculoskeletal: no complaints Skin: no complaints Neurologic: confusion, dizziness, No focal-weakness, No headache, No no complaints, No other, No seizure, No syncope Psychological: anxiety, confusion, depression, nl mood/affect, no complaints, other, suicidal Past Medical History Medical History: angina, congestive heart failure, coronary artery disease, deep vein thrombosis, diabetes, diverticulitis, GERD, GI bleed, high cholesterol , hypertension, hypothyroid, irritable bowel syndrome, peptic ulcer disease Past Surgical History Past Surgical Hx: cholecystectomy, endoscopy, other Social History Alcohol Use: none Smoking Status: Never smoker Drug Use: none Exam/Review of Systems Vital Signs Vitals Vital Signs Date Time Temp Pulse Resp B/P Pulse Ox O2 Delivery O2 Flow Rate FiO2 12/26/16 12:14 98.2 75 22 128/62 97 12/26/16 12:13 Nasal Cannula 2.0 Intake and Output 12/25/16 12/25/16 12/26/16 15:00 23:00 07:00 Intake Total 1006 ml 520 ml Output Total 1200 ml Balance -194 ml 520 ml Exam Constitutional: alert, obese, oriented Psych: anxiety, nl mood/affect Head: atraumatic, normocephalic Eyes: EOMI, nl conjunctiva, nl lids ENMT: nl external ears & nose Neck: non-tender, supple Musculoskeletal: joint tenderness, muscle tone, muscle weakness, nl extremities to inspection, nl gait and stance, other, range of motion, spine non -tender, swelling Extremities: calf tenderness, clubbing, cyanosis, edema, normal pulses, other, palpable cord, pitting pedal edema, tenderness Neurological: CENTER REP II-XII intact, nl mental status, nl speech Results Result Diagram: 12/25/16 0550 12/25/16 0550 Results 24 hrs Laboratory Tests Test 12/25/16 17:42 12/25/16 21:59 12/26/16 03:11 12/26/16 05:41 Bedside Glucose 110 94 132 Magnesium Level 2.2 Test 12/26/16 07:52 12/26/16 12:23 12/26/16 13:54 Bedside Glucose 137 135 Magnesium Level 2.4 Medications Medications Current Medications Ondansetron HCl (Zofran Inj) 4 mg Q6H PRN IV NAUSEA AND/OR VOMITING Last administered on 12/26/16 00:47; Admin Dose 4 MG; Start 12/21/16 at 23:00 Morphine Sulfate (morphine) 2 mg Q4H PRN IV PAIN Last administered on 00:09; Admin Dose 2 MG; Start 12/21/16 at 23:00 Diagnostic Test (Pha) (Accu-Chek) 1 ea 02 XX Last administered on 12/23/16 02: 31; Admin Dose 1 EA; Start 12/22/16 at 02:00 Miscellaneous Information 1 ea NOTE XX ; Start 12/21/16 at 23:00 Glucose (Glutose) 15 gm Q15M PRN PO DECREASED GLUCOSE; Start 12/21/16 at 23:00 Glucose (Glutose) 22.5 gm Q15M PRN PO DECREASED GLUCOSE; Start 12/21/16 at 23: 00 Dextrose (D50w Syringe) 25 ml Q15M PRN IV DECREASED GLUCOSE; Start 12/21/16 at 23:00 Dextrose (D50w Syringe) 50 ml Q15M PRN IV DECREASED GLUCOSE; Start 12/21/16 at 23:00 Glucagon (Glucagen) 1 mg Q15M PRN IM DECREASED GLUCOSE; Start 12/21/16 at 23:00 Glucose (Glutose) 15 gm Q15M PRN BUCCAL DECREASED GLUCOSE; Start 12/21/16 at 23 :00 Aspirin (Halfprin) 81 mg DAILY PO Last administered on 12/26/16 09:42; Admin Dose 81 MG; Start 12/23/16 at 09:00 Bisacodyl (Dulcolax Supp) 10 mg DAILY PRN [place] CONSTIPATION Last administered on 12/25/16 12:41; Admin Dose 10 MG; Start 12/22/16 at 17:00 Clonidine (Catapres) 0.1 mg DAILY PRN PO HTN; Start 12/22/16 at 17:00 Diphenhydramine HCl (Benadryl) 25 mg BID PRN PO ITCHING; Start 12/22/16 at 17: 00 Docusate Sodium (Colace) 200 mg BID PRN PO CONSTIPATION Last administered on 09:38; Admin Dose 200 MG; Start 12/22/16 at 17:00 Escitalopram Oxalate (Lexapro) 10 mg DAILY PO Last administered on 12/26/16 09:43; Admin Dose 10 MG; Start 12/23/16 at 09:00 EZETIMIBE (Zetia) 10 mg DAILY PO Last administered on 12/26/16 09:41; Admin Dose 10 MG; Start 12/23/16 at 09:00 Furosemide (Lasix) 40 mg DAILY PO Last administered on 12/26/16 09:43; Admin Dose 40 MG; Start 12/23/16 at 09:00 Gabapentin (Neurontin) 300 mg TID PO Last administered on 12/26/16 12:38; Admin Dose 300 MG; Start 12/22/16 at 21:00 Linagliptin (Tradjenta) 5 mg DAILY PO Last administered on 12/26/16 09:43; Admin Dose 5 MG; Start 12/23/16 at 09:00 Metformin HCl (Glucophage) 1,000 mg BID PO Last administered on 12/26/16 09: 42; Admin Dose 1,000 MG; Start 12/22/16 at 21:00 Potassium Chloride (Micro-K) 8 meq DAILY PO Last administered on 12/26/16 09: 39; Admin Dose 8 MEQ; Start 12/23/16 at 09:00 Prednisone (Prednisone) 10 mg DAILY PO Last administered on 12/26/16 09:42; Admin Dose 10 MG; Start 12/23/16 at 09:00 Salmeterol Xinafoate/ Fluticasone (Advair 250/50 Diskus) 1 inh BID INH Last administered on 12/26/16 09:37; Admin Dose 1 INH; Start 12/22/16 at 21:00 Solifenacin (Vesicare) 5 mg DAILY PO Last administered on 12/26/16 09:00; Admin Dose 5 MG; Start 12/23/16 at 09:00 Trimethoprim/ Sulfamethoxazole (Bactrim (Ds)) 1 tab BID PO Last administered on 12/26/16 09:38; Admin Dose 1 TAB; Start 12/22/16 at 21:00 Tiotropium [place] (Spiriva) 1 inh DAILY INH Last administered on 12/26/16 10 :02; Admin Dose 1 INH; Start 12/23/16 at 09:00 Voriconazole 200 mg 200 mg BID PO Last administered on 12/26/16 09:43; Admin Dose 200 MG; Start 12/22/16 at 21:00 Ferric Sodium Gluconate Complex/ Sodium Chloride (Ferrlecit/NS) 110 ml @ 110 mls/hr Q24H IVPB Last administered on 12/25/16 21:43; Admin Dose 110 MLS/HR; Start 12/22/16 at 20:00; Stop 12/26/16 at 20:59 Enoxaparin Sodium (Lovenox) 80 mg BID SC Last administered on 12/26/16 09:55 ; Admin Dose 80 MG; Start 12/22/16 at 21:00 Flecainide Acetate (Tambocor) 150 mg BID PO Last administered on 12/26/16 09: 44; Admin Dose 150 MG; Start 12/22/16 at 21:00 Polyethylene Glycol (Miralax) 17 gm BID PO Last administered on 12/26/16 09: 39; Admin Dose 17 GM; Start 12/22/16 at 21:00 Lorazepam (Ativan) 0.5 mg Q4H PRN PO ANXIETY; Start 12/22/16 at 20:30 Acetaminophen/ Hydrocodone Bitart ([place] (10/325)) 1 tab Q6H PRN PO Pain Last administered on 12/26/16 14:17; Admin Dose 1 TAB; Start 12/23/16 at 15:12 Ibuprofen (Motrin) 600 mg Q6H PRN PO PAIN OR TEMP ABOVE 38C Last administered on 12/26/16 06:08; Admin Dose 600 MG; Start 12/23/16 at 14:00 Divalproex Sodium (Depakote) 125 mg TID PO Last administered on 12/26/16 12: 38; Admin Dose 125 MG; Start 12/23/16 at 21:00 Levofloxacin (Levaquin) 500 mg DAILY@06 PO Last administered on 12/26/16 06: 00; Admin Dose 500 MG; Start 12/25/16 at 06:00 Amoxicillin (Amoxicillin) 500 mg Q6 PO Last administered on 12/26/16 12:38; Admin Dose 500 MG; Start 12/25/16 at 19:00 Lactulose (Enulose) 20 gm DAILY PO Last administered on 12/26/16 10:02; Admin Dose 20 GM; Start 12/26/16 at 09:00 TITA THOMAS MD Dec 26, 2016 15:04
[2016-12-26] MEDS ORDERED: NA PHOSPHATE/BIPHOS 133 ML ENEMA PR ONE (15:30)
--- NOTE | 2016-12-26 20:10 | PN ---
Date/Time of Note Date/Time of Note DATE: 12/26/16 TIME: 20:06 Assessment/Plan VTE Prophylaxis VTE Prophylaxis Intervention: ambulation, anti-embolic stocking VTE Contraindication Reason: peripheral vascular disease Lines/Catheters IV Catheter Type (from Nrsg): [place] [employer] line still needed: No Urinary Cath still in place: No Reason Cath still needed: urinary retention Assessment/Plan Assessment/Plan Assessment/Plan 1. Congestive heart failure exacerbation with pulmonary edema.Improving 2. Bad odor from the urine with recurrent hematuria. 3.Low abdominal pain and llq abd pain 4. Leukocytosis 5. History of having palpitations-now bradycardic; lowest rate 45- now 63bpm. 6. History of having bronchial asthma, now stable. 7. Wound of the postsurgical scar, right-sided abdomen, healed. 8. Status post cholecystectomy. 9. Postmenstrual syndrome. 10. Anxiety. 11. Claustrophobia. 12. Dyslipidemia. 13. Diabetes type 2. 14. History of having carbon dioxide retention. 15. Anemia of chronic disease with recent loss. 16. History of chronic kidney disease, improved. 17. History of having low iron and low magnesium levels. 18. Pain syndrome. 19. Major depression. 20. Altered level of consciousness. 21. Diverticulitis. 22. Left-sided chest pain. 23.carbon dioxide narcosis (Hx of) 24.Trophic changes of both legs with change of a color. 25.Pilling of the skin of nailbeds of both hands with deformities and trace of blood and swelling.26. 26.11 years bedridden 27.Decubitus of t he left gluteal area with mild redness of the calcaneal skin 28.Severe deconditioning 29.Daytime sleepiness 30.Severe krupa of knees, hips ans ankle joints 31.Calcaneal pain. 32.Umbilical reducible hernia 4-5cm in diameter.Postsurgical. 33.Chronic norco,percocet, and other controlled substance user. 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 Hallucinations, confusion, fear on and off 37.Hypertension, now normotensive. 38.Low magnesium and low iron levels 39.Fear of . 40.Morbid (severe) obesity due to excess calories (BMI 40 or greater) ( ICD10 E66.01 ) 41.Spinal stenosis with radiculopathy 42.KRUPA of hips and knees 43.Pain in right brerast with mildly tender mass. 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 No vertebral fx. 45.Agarophobia 46.Claustrophobia Cont'd Hospitalization Reason: Hallucination, delusions.Plan to d/c in one 2 days after social research assistant evaluation for placement vs home. . Cont'd Hospitalization Reason: d/c in am. Subjective 24 Hr Interval Summary Free Text/Dictation Neck anad back pain persists. NS's note was noticed. Plan pain management as an otpt. Constitutional: disoriented, No chills, No diaphoresis, No febrile, No improved, No no complaints, No other, No poor po, No requiring IVF, No requiring O2 Eyes: No discharge, No no complaints, No other, No pain, No redness, No visual change ENT: No bleeding, No congestion, No discharge, No dysphagia, No no complaints, No other, No pain, No sore throat Respiratory: cough, shortness of breath, No no complaints, No other, No pain, No pleuritic pain, No sputum, No wheezing Cardiovascular: lightheadedness, orthopenea, palpitations, No chest pain, No edema, No no complaints, No other, No paroxysmal nocturnal dyspnea Gastrointestinal: constipation, decreased appetite, flatus, passing stool, No blood, No diarrhea, No nausea, No no complaints, No other, No pain, No vomiting Genitourinary: dysuria Musculoskeletal: back pain, bone/joint pain, neck pain, No no complaints, No other, No restricted range of motion, No swelling Skin: bruising, erythema, pruritis, No laceration, No no complaints, No other, No rash, No skin lesions Neurologic: dizziness Exam/Review of Systems Vital Signs Vitals Vital Signs Date Time Temp Pulse Resp B/P Pulse Ox O2 Delivery O2 Flow Rate FiO2 12/26/16 20:02 71 12/26/16 19:37 98.7 18 139/85 95 12/26/16 15:01 Nasal Cannula 2.0 Intake and Output 12/25/16 12/25/16 12/26/16 14:59 22:59 06:59 Intake Total 1006 ml 520 ml Output Total 1200 ml Balance -194 ml 520 ml Exam Constitutional: alert, distress, obese, other (hallucinations persist. Mainly visual. Sleep improved after seroquil.), well developed, No frail, No non-verbal, No oriented Psych: anxiety, confusion, depression, No nl mood/affect, No no complaints, No other, No suicidal Head: atraumatic, normocephalic, No hematomas, No lacerations, No other Eyes: EOMI, PERRL, nl lids, No fundi, disc, No icteric, No nl conjunctiva, No nl sclera, No other ENMT: No intubated, No mucosa pink and moist, No nl external ears & nose, No nl lips & teeth, No nl nasal mucosa & septum, No other, No tympanic membranes Neck: bruits, nuchal rigidity, No jvd, No masses, No non-tender, No other, No supple, No thyromegaly Respiratory: congested cough, diminished breath sounds, No clear to auscultation, No crackles/rales, No intercostal retraction, No labored breathing, No normal air movement, No other, No respirations, No tactile fremitus, No wheezing Cardiovascular: bruits, jugular venous distention (JVD), murmurs/extra sounds, systolic murmur, No S3, No S4, No diastolic murmur, No edema, No gallop, No irregular rhythm, No nl pulses, No other, No regular rate and rhythm, No rub Gastrointestinal: ascites, bowel sounds, non-tender, soft, surgical scars, No distended, No firm, No hepatomegaly, No mass, No nl liver, spleen, No other, No rebound or guarding, No splenomegaly, No tender Musculoskeletal: joint tenderness, muscle tone, muscle weakness, range of motion Extremities: edema, tenderness, No calf tenderness, No clubbing, No cyanosis, No normal pulses, No other, No palpable cord, No pitting pedal edema Neurological: TILE GRADER II-XII intact (decreasedf hearing.), confused, lethargic ( on and off.) Skin: diaphoresis, No ecchymosis, No laceration, No nl turgor, No other, No puncture, No rash or lesions Results Result Diagram: 12/25/16 0550 12/25/16 0550 Results 24 hrs Laboratory Tests Test 12/25/16 21:59 12/26/16 03:11 12/26/16 05:41 12/26/16 07:52 Bedside Glucose 94 132 137 Magnesium Level 2.2 Test 12/26/16 12:23 12/26/16 13:54 12/26/16 17:34 Bedside Glucose 135 141 Magnesium Level 2.4 Medications Medications Current Medications Ondansetron HCl (Zofran Inj) 4 mg Q6H PRN IV NAUSEA AND/OR VOMITING Last administered on 12/26/16 00:47; Admin Dose 4 MG; Start 12/21/16 at 23:00 Morphine Sulfate (morphine) 2 mg Q4H PRN IV PAIN Last administered on 00:09; Admin Dose 2 MG; Start 12/21/16 at 23:00 Diagnostic Test (Pha) (Accu-Chek) 1 ea 02 XX Last administered on 12/23/16 02: 31; Admin Dose 1 EA; Start 12/22/16 at 02:00 Miscellaneous Information 1 ea NOTE XX ; Start 12/21/16 at 23:00 Glucose (Glutose) 15 gm Q15M PRN PO DECREASED GLUCOSE; Start 12/21/16 at 23:00 Glucose (Glutose) 22.5 gm Q15M PRN PO DECREASED GLUCOSE; Start 12/21/16 at 23: 00 Dextrose (D50w Syringe) 25 ml Q15M PRN IV DECREASED GLUCOSE; Start 12/21/16 at 23:00 Dextrose (D50w Syringe) 50 ml Q15M PRN IV DECREASED GLUCOSE; Start 12/21/16 at 23:00 Glucagon (Glucagen) 1 mg Q15M PRN IM DECREASED GLUCOSE; Start 12/21/16 at 23:00 Glucose (Glutose) 15 gm Q15M PRN BUCCAL DECREASED GLUCOSE; Start 12/21/16 at 23 :00 Aspirin (Halfprin) 81 mg DAILY PO Last administered on 12/26/16 09:42; Admin Dose 81 MG; Start 12/23/16 at 09:00 Bisacodyl (Dulcolax Supp) 10 mg DAILY PRN [place] CONSTIPATION Last administered on 12/25/16 12:41; Admin Dose 10 MG; Start 12/22/16 at 17:00 Clonidine (Catapres) 0.1 mg DAILY PRN PO HTN; Start 12/22/16 at 17:00 Diphenhydramine HCl (Benadryl) 25 mg BID PRN PO ITCHING; Start 12/22/16 at 17: 00 Docusate Sodium (Colace) 200 mg BID PRN PO CONSTIPATION Last administered on 09:38; Admin Dose 200 MG; Start 12/22/16 at 17:00 Escitalopram Oxalate (Lexapro) 10 mg DAILY PO Last administered on 12/26/16 09:43; Admin Dose 10 MG; Start 12/23/16 at 09:00 EZETIMIBE (Zetia) 10 mg DAILY PO Last administered on 12/26/16 09:41; Admin Dose 10 MG; Start 12/23/16 at 09:00 Furosemide (Lasix) 40 mg DAILY PO Last administered on 12/26/16 09:43; Admin Dose 40 MG; Start 12/23/16 at 09:00 Gabapentin (Neurontin) 300 mg TID PO Last administered on 12/26/16 12:38; Admin Dose 300 MG; Start 12/22/16 at 21:00 Linagliptin (Tradjenta) 5 mg DAILY PO Last administered on 12/26/16 09:43; Admin Dose 5 MG; Start 12/23/16 at 09:00 Metformin HCl (Glucophage) 1,000 mg BID PO Last administered on 12/26/16 09: 42; Admin Dose 1,000 MG; Start 12/22/16 at 21:00 Potassium Chloride (Micro-K) 8 meq DAILY PO Last administered on 12/26/16 09: 39; Admin Dose 8 MEQ; Start 12/23/16 at 09:00 Prednisone (Prednisone) 10 mg DAILY PO Last administered on 12/26/16 09:42; Admin Dose 10 MG; Start 12/23/16 at 09:00 Salmeterol Xinafoate/ Fluticasone (Advair 250/50 Diskus) 1 inh BID INH Last administered on 12/26/16 09:37; Admin Dose 1 INH; Start 12/22/16 at 21:00 Solifenacin (Vesicare) 5 mg DAILY PO Last administered on 12/26/16 09:00; Admin Dose 5 MG; Start 12/23/16 at 09:00 Tiotropium Comins (Spiriva) 1 inh DAILY INH Last administered on 12/26/16 10 :02; Admin Dose 1 INH; Start 12/23/16 at 09:00 Voriconazole 200 mg 200 mg BID PO Last administered on 12/26/16 09:43; Admin Dose 200 MG; Start 12/22/16 at 21:00 Ferric Sodium Gluconate Complex/ Sodium Chloride (Ferrlecit/NS) 110 ml @ 110 mls/hr Q24H IVPB Last administered on 12/25/16 21:43; Admin Dose 110 MLS/HR; Start 12/22/16 at 20:00; Stop 12/26/16 at 20:59 Enoxaparin Sodium (Lovenox) 80 mg BID SC Last administered on 12/26/16 09:55 ; Admin Dose 80 MG; Start 12/22/16 at 21:00 Flecainide Acetate (Tambocor) 150 mg BID PO Last administered on 12/26/16 09: 44; Admin Dose 150 MG; Start 12/22/16 at 21:00 Polyethylene Glycol (Miralax) 17 gm BID PO Last administered on 12/26/16 09: 39; Admin Dose 17 GM; Start 12/22/16 at 21:00 Lorazepam (Ativan) 0.5 mg Q4H PRN PO ANXIETY; Start 12/22/16 at 20:30 Acetaminophen/ Hydrocodone Bitart ([place] (10/325)) 1 tab Q6H PRN PO Pain Last administered on 12/26/16 14:17; Admin Dose 1 TAB; Start 12/23/16 at 15:12 Ibuprofen (Motrin) 600 mg Q6H PRN PO PAIN OR TEMP ABOVE 38C Last administered on 12/26/16 17:40; Admin Dose 600 MG; Start 12/23/16 at 14:00 Divalproex Sodium (Depakote) 125 mg TID PO Last administered on 12/26/16 12: 38; Admin Dose 125 MG; Start 12/23/16 at 21:00 Levofloxacin (Levaquin) 500 mg DAILY@06 PO Last administered on 12/26/16 06: 00; Admin Dose 500 MG; Start 12/25/16 at 06:00 Amoxicillin (Amoxicillin) 500 mg Q6 PO Last administered on 12/26/16 17:40; Admin Dose 500 MG; Start 12/25/16 at 19:00 Lactulose (Enulose) 20 gm DAILY PO Last administered on 12/26/16t 10:02; Admin Dose 20 GM; Start 12/26/16 at 09:00 STONE HERNANDEZ MD Dec 26, 2016 20:10
[2016-12-26 20:48] LABS: BASOPHILS % 0.3 % (0.0-2.0); EOSINOPHILS # 0.1 10^3/ul (0.0-0.5); EOSINOPHILS % 0.9 % (0.0-7.0); HEMATOCRIT 37.5 % (37.0-47.0); HEMOGLOBIN 11.6 g/dl (12.0-16.0); LYMPHOCYTES # 1.3 10^3/ul (0.8-2.9); LYMPHOCYTES % 10.7 % (15.0-51.0); MEAN CORPUSCULAR HEMOGLOBIN 30.8 pg (29.0-33.0); MEAN CORPUSCULAR HGB CONC 30.9 g/dl (32.0-37.0); MEAN CORPUSCULAR VOLUME 99.5 fl (82.0-101.0); MONOCYTE # 0.7 10^3/ul (0.3-0.9); MONOCYTES % 5.9 % (0.0-11.0); NEUTROPHIL # 9.6 10^3/ul (1.6-7.5); NEUTROPHILS % 81.7 % (39.0-77.0); PLATELET COUNT 293 10^3/UL (140-415); RED BLOOD COUNT 3.77 10^6/ul (4.20-5.40); RED CELL DISTRIBUTION WIDTH 14.4 % (11.5-14.5); RETICULOCYTE COUNT % 2.1 % (0.5-1.5); WHITE BLOOD COUNT 11.7 10^3/ul (4.8-10.8)
[2016-12-26 21:05] LABS: IRON 61 ug/dl (35-150)
[2016-12-26 21:07] LABS: ALBUMIN 3.9 g/dl (3.3-4.9); ALBUMIN/GLOBULIN RATIO 0.97; CALCIUM 9.2 mg/dl (8.4-10.2); CREATININE 0.99 mg/dl (0.44-1.00); TOTAL PROTEIN 7.9 g/dl (6.1-8.1); URIC ACID 7.7 mg/dl (3.1-7.9)
[2016-12-26 21:14] LABS: TOTAL IRON BINDING CAPACITY 232 ug/dl (241-421)
[2016-12-26 21:37] LABS: THYROID STIMULATING HORMONE 1.42 MIU/L (0.465-4.680)
[2016-12-26 22:16] LABS: CARCINOEMBRYONIC ANTIGEN 6.4 ng/ml (0.0-5.0)
[2016-12-26 22:17] LABS: FOLATE 4.6 ng/ml (2.8-20.0)
[2016-12-26] MEDS: SOD FERRIC GLUC COMPLX 125 MG in SOD CHLORIDE 0.9% 100 ML IVPB SCH (22:47)
[2016-12-26 23:13] LABS: POTASSIUM 5.4 mmol/L (3.5-5.1)
[2016-12-27] VITALS (12 sets, daily range): BP systolic 125–150; BP diastolic 65–76; PULSE 72–78; RESP 16–18
[2016-12-27] MEDS: ALBUTEROL/IPRATROPIUM (NEB) 3 ML AMP HHN SCH ×3 (00:15→15:34)
[2016-12-27] MEDS: AMOXICILLIN 500 MG CAP PO SCH ×3 (06:12→18:12)
[2016-12-27] MEDS: LEVOFLOXACIN 500 MG TAB PO SCH (06:12)
[2016-12-27] MEDS ORDERED: NA PHOSPHATE/BIPHOS 133 ML ENEMA PR ONE (07:00)
--- NOTE | 2016-12-27 07:09 | CONS ---
DATE OF ADMISSION: 12/21/2016 DATE OF CONSULTATION: The patient is 76 years old, ____ underlying ____ encephalogram. The patient has a history of halluc inations, delusions, dementia of possible Alzheimer disease, underlying depression, and paresthesias . PHYSICAL EXAMINATION: GENERAL: The patient is alert, awake, and following simple commands. HEART: Regular rate and rhythm and equal breath sounds. ABDOMEN: Soft, relaxed, nondistended, no tenderness. NEUROLOGIC: Cranial nerves: Cranial nerve II: Pupils equal on both sides, reactive to light. Winder Fixer nial nerves III, IV and : Extraocular muscle intact. No nystagmus. Cranial nerve V: Equal sens ation to face. Cranial nerve VII: Symmetrical face. Cranial nerve VIII: Decreased hearing bilate rally. Cranial nerves IX and X: Elevates palate. Cranial nerve XI: Elevates shoulder 5/5. Crani al nerve XII: Straight tongue. MOTOR: Decreased right hand medical records assistant, 4+/5. SENSATION: Decreased ____ for light touch and temperature. COORDINATION: Could not assess. ASSESSMENT AND PLAN: 1. The patient is 76 years old with underlying dementia of Alzheimer disease. Will follow up the p atient with Mini-Mental status when she is stable. 2. ____ slow and consistent with a history of underlying dementia of ____ Alzheimer's. No seizure _ ___ epileptiform discharge. 3. Hallucinations and delusions, in which the patient is started on Depakote, which is good for moo d stabilizer and seizure activity. 4. Underlying depression with the patient's Keppra ____ mg once a day. 5. Paresthesia. Give the patient Neurontin 100 mg once a day. Again, thank you, Dr. Ruiz, for asking me to see the patient with you. Dictated By: MOSES CENTENO/JESUS Conf#: [id number] DID#: [id number]
[2016-12-27] MEDS: INSULIN ASPART [NOVOLOG] 3 ML PEN SC SCH ×4 (07:55→21:00)
[2016-12-27] MEDS: ENOXAPARIN 40 MG/0.4 ML SYG SC SCH ×2 (08:22→21:35)
[2016-12-27] MEDS: SALMETEROL/FLUTICASONE 250/50 INHA INH SCH ×2 (08:23→21:07)
[2016-12-27] MEDS: TIOTROPIUM 18 MCG CAPSULE INHA DEV INH SCH (08:24)
[2016-12-27] MEDS: DIVALPROEX (EC) 125 MG TAB PO SCH ×3 (08:25→21:07)
[2016-12-27] MEDS: LACTULOSE 30ML CUP PO SCH (08:25)
[2016-12-27] MEDS: metFORMIN 500 MG TAB PO SCH ×2 (08:25→21:06)
[2016-12-27] MEDS: FUROSEMIDE 40 MG TAB PO SCH (08:26)
[2016-12-27] MEDS: ASPIRIN (EC) 81 MG TAB PO SCH (08:26)
[2016-12-27] MEDS: POLYETHYLENE GLYCOL 17 GM PACKET PO SCH ×2 (08:27→21:05)
[2016-12-27] MEDS: POTASSIUM CHLORIDE (SR) 8 MEQ CAP PO SCH (08:27)
[2016-12-27] MEDS: ESCITALOPRAM 10 MG TAB PO SCH (08:27)
[2016-12-27] MEDS: GABAPENTIN 300 MG CAP PO SCH ×3 (08:28→21:07)
[2016-12-27] MEDS: predniSONE 10 MG TAB PO SCH (08:28)
[2016-12-27] MEDS: FLECAINIDE 100 MG TAB PO SCH ×2 (08:29→21:07)
[2016-12-27] MEDS: LINAGLIPTIN 5 MG TABLET PO SCH (08:29)
[2016-12-27] MEDS: EZETIMIBE 10 MG TAB PO SCH (08:30)
[2016-12-27] MEDS: VORICONAZOLE 200 MG TAB PO SCH ×2 (08:38→21:07)
--- NOTE | 2016-12-27 09:04 | PN ---
Date/Time of Note Date/Time of Note DATE: 12/27/16 TIME: 08:44 Assessment/Plan VTE Prophylaxis VTE Prophylaxis Intervention: ambulation, anti-embolic stocking VTE Contraindication Reason: peripheral vascular disease Lines/Catheters IV Catheter Type (from Nrsg): [employer] line still needed: No Urinary Cath still in place: No Reason Cath still needed: other (indicate) (intermitedly leaking urine.) Assessment/Plan Assessment/Plan 1. Severe constipation with protrusion of the umbilical hernia. GI and surgical consults. 2. Bad odor from the urine with recurrent hematuria.- continue Amoxil and Levaquin x 3 more days. 3.Low abdominal pain and llq abd pain 4. Leukocytosis 5. History of having palpitations-now bradycardic; lowest rate 45- now 82bpm. 6. History of having bronchial asthma, now stable. 7. Wound of the postsurgical scar, right-sided abdomen, healed. 8. Status post cholecystectomy. 9. Postmenstrual syndrome. 10. Anxiety. 11. Claustrophobia. 12. Dyslipidemia. 13. Diabetes type 2. 14. History of having carbon dioxide retention. 15. Anemia of chronic disease with recent loss. 16. History of chronic kidney disease, improved. 17. History of having low iron and low magnesium levels. 18. Pain syndrome. 19. Major depression. 20. Altered level of consciousness. 21. Diverticulitis. 22. Left-sided chest pain. 23.carbon dioxide narcosis (Hx of) 24.Trophic changes of both legs with change of a color. 25.Pilling of the skin of nailbeds of both hands with deformities and trace of blood and swelling.26. 26.11 years bedridden 27.Decubitus of the left gluteal area with mild redness of the calcaneal skin 28.Severe deconditioning 29.Daytime sleepiness 30.Severe krupa of knees, hips ans ankle joints 31.Calcaneal pain. 32.Umbilical reducible hernia 4-5cm in diameter.Postsurgical. 33.Chronic norco,percocet, and other controlled substance user. 34.Bradycardia 35.Morbid obesity; Obesity hypopnea syndrome,hypercarbia with Pc02 57 36.Hallucinations, confusion, fear on and off 37.Hypertension, now normotensive. Congestive heart failure exacerbation with pulmonary edema.Improving 38.Low magnesium and low iron levels 39.Fear of . 40.Morbid (severe) obesity due to excess calories (BMI 40 or greater) ( ICD10 E66.01 ) 41.Spinal stenosis with radiculopathy 42.KRUPA of hips and knees 43.Pain in right brerast with mildly tender mass. 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 No vertebral fx. 45.Agarophobia 46.Claustrophobia Cont'd Hospitalization Reason: Hallucination, delusions.Plan to d/c in one 2 days after social studies teacher evaluation for placement vs home. . Cont'd Hospitalization Reason: constipation. Subjective 24 Hr Interval Summary Free Text/Dictation Abdominal pain with bm at least 5 days. Now on norco. Fleet enema failed x 2. No n/v; no f/c.Hold d/c. was called. Constitutional: disoriented, poor po, No chills, No diaphoresis, No febrile, No improved, No no complaints, No other, No requiring IVF, No requiring O2 Eyes: discharge, redness, visual change, No no complaints, No other, No pain ENT: No bleeding, No congestion, No discharge, No dysphagia, No no complaints, No other, No pain, No sore throat Respiratory: shortness of breath, No cough, No no complaints, No other, No pain, No pleuritic pain, No sputum, No wheezing Cardiovascular: orthopenea, palpitations, paroxysmal nocturnal dyspnea, No chest pain, No edema, No lightheadedness, No no complaints, No other Gastrointestinal: constipation, flatus, pain, passing stool, No blood, No decreased appetite, No diarrhea, No nausea, No no complaints, No other, No vomiting Genitourinary: No bleeding, No discharge, No dysuria, No flank pain, No hematuria, No no complaints, No other Musculoskeletal: back pain, bone/joint pain, neck pain, No no complaints, No other, No restricted range of motion, No swelling Skin: bruising, erythema, pruritis, rash, No laceration, No no complaints, No other, No skin lesions Neurologic: confusion, headache, No dizziness, No focal-weakness, No no complaints, No other, No seizure, No syncope Psychological: anxiety, depression, other (hallucinations cantinue.) Immunologic: pruritis Exam/Review of Systems Vital Signs Vitals Vital Signs Date Time Temp Pulse Resp B/P Pulse Ox O2 Delivery O2 Flow Rate FiO2 12/27/16 08:10 73 20 96 Nasal Cannula 2.0 12/27/16 07:43 98.5 133/65 Intake and Output 12/26/16 12/26/16 12/27/16 15:00 23:00 07:00 Intake Total 600 ml 260 ml Balance 600 ml 260 ml Exam Constitutional: alert, distress, frail, obese, oriented, well developed Psych: anxiety, No confusion, No depression, No nl mood/affect, No no complaints, No other, No suicidal Head: atraumatic, normocephalic, No hematomas, No lacerations, No other Eyes: EOMI, PERRL, nl lids, other (mildly erythematose conjunctivatis.) ENMT: nl external ears & nose, nl lips & teeth, nl nasal mucosa & septum, No intubated, No mucosa pink and moist, No other, No tympanic membranes Neck: bruits, jvd, other (tender bilaterally.), supple, No masses, No non-tender, No nuchal rigidity, No thyromegaly Respiratory: clear to auscultation, diminished breath sounds, normal air movement, No congested cough, No crackles/rales, No intercostal retraction, No labored breathing, No other, No respirations, No tactile fremitus, No wheezing Cardiovascular: bruits, jugular venous distention (JVD), murmurs/extra sounds, systolic murmur, No S3, No S4, No diastolic murmur, No edema, No gallop, No irregular rhythm, No nl pulses, No other, No regular rate and rhythm, No rub Gastrointestinal: bowel sounds, distended (central, periumbilicval area.), soft (except in periumbilical area where there is s distention of the existing hernia size. BS+ also by palpation ther is a sighn of gases passing. Midabdominal , periumbilical area is tender and protruded.) Musculoskeletal: joint tenderness, muscle tone, muscle weakness, range of motion (decreased left more than right shoulder.) Neurological: [employer] II-XII intact (decreased yusuf.), confused (on and off. ), lethargic (When I returned to the room after earlier visit she was sleeping. She immediatly open the eyes.), nl speech, No DTR's symmetric, No focal weakness, No nl mental status, No nl strength, No numbness, No other, No reflexes, No unresponsive Skin: rash or lesions, No diaphoresis, No ecchymosis, No laceration, No nl turgor, No other, No puncture Results Result Diagram: 12/26/16204012/26/162040 Results 24 hrs Laboratory Tests Test 12/26/16 12:23 12/26/16 13:54 12/26/16 17:34 12/26/16 20:41 Bedside Glucose 135 141 Magnesium Level 2.4 White Blood Count 11.7 H Red Blood Count 3.77 L Hemoglobin 11.6 L Hematocrit 37.5 Mean Corpuscular Volume 99.5 Mean Corpuscular Hemoglobin 30.8 Mean Corpuscular Hemoglobin Concent 30.9 L Red Cell Distribution Width 14.4 Platelet Count 293 Mean Platelet Volume 12.0 H Neutrophils % 81.7 H Lymphocytes % 10.7 L Monocytes % 5.9 Eosinophils % 0.9 Basophils % 0.3 Nucleated Red Blood Cells % 0.0 Neutrophils # 9.6 H Lymphocytes # 1.3 Monocytes # 0.7 Eosinophils # 0.1 Basophils # 0.0 Nucleated Red Blood Cells # 0.0 Erythrocyte Sedimentation Rate 77 H Absolute Reticulocyte Count 0.077 Percent Reticulocyte Count 2.1 H Sodium Level 141 Potassium Level 5.4 H Chloride Level 102 Carbon Dioxide Level 27 Anion Gap 17 H Blood Urea Nitrogen 15 Creatinine 0.99 Glucose Level 124 Uric Acid 7.7 Calcium Level 9.2 Iron Level 61 Total Iron Binding Capacity 232 L Percent Iron Saturation 26 Total Bilirubin 0.0 L Direct Bilirubin 0.00 Indirect Bilirubin 0.0 Aspartate Amino Transf (AST/SGOT) 53 H Alanine Aminotransferase (ALT/SGPT) 34 Alkaline Phosphatase 115 Lactate Dehydrogenase 570 Total Protein 7.9 # Albumin 3.9 Globulin 4.00 H Albumin/Globulin Ratio 0.97 Carcinoembryonic Antigen 6.4 H Folate 4.6 Thyroid Stimulating Hormone (TSH) 1.420 Test 12/26/16 22:45 12/27/16 08:01 Bedside Glucose 115 118 Medications Medications Current Medications Ondansetron HCl (Zofran Inj) 4 mg Q6H PRN IV NAUSEA AND/OR VOMITING Last administered on 12/26/16t 00:47; Admin Dose 4 MG; Start 12/21/16 at 23:00 Morphine Sulfate (morphine) 2 mg Q4H PRN IV PAIN Last administered on 00:09; Admin Dose 2 MG; Start 12/21/16 at 23:00 Diagnostic Test (Pha) (Accu-Chek) 1 ea 02 XX Last administered on 12/23/16 02: 31; Admin Dose 1 EA; Start 12/22/16 at 02:00 Miscellaneous Information 1 ea NOTE XX ; Start 12/21/16 at 23:00 Glucose (Glutose) 15 gm Q15M PRN PO DECREASED GLUCOSE; Start 12/21/16 at 23:00 Glucose (Glutose) 22.5 gm Q15M PRN PO DECREASED GLUCOSE; Start 12/21/16 at 23: 00 Dextrose (D50w Syringe) 25 ml Q15M PRN IV DECREASED GLUCOSE; Start 12/21/16 at 23:00 Dextrose (D50w Syringe) 50 ml Q15M PRN IV DECREASED GLUCOSE; Start 12/21/16 at 23:00 Glucagon (Glucagen) 1 mg Q15M PRN IM DECREASED GLUCOSE; Start 12/21/16 at 23:00 Glucose (Glutose) 15 gm Q15M PRN BUCCAL DECREASED GLUCOSE; Start 12/21/16 at 23 :00 Aspirin (Halfprin) 81 mg DAILY PO Last administered on 12/26/16 09:42; Admin Dose 81 MG; Start 12/23/16 at 09:00 Bisacodyl (Dulcolax Supp) 10 mg DAILY PRN [place] CONSTIPATION Last administered on 12/25/16 12:41; Admin Dose 10 MG; Start 12/22/16 at 17:00 Clonidine (Catapres) 0.1 mg DAILY PRN PO HTN; Start 12/22/16 at 17:00 Diphenhydramine HCl (Benadryl) 25 mg BID PRN PO ITCHING; Start 12/22/16 at 17: 00 Docusate Sodium (Colace) 200 mg BID PRN PO CONSTIPATION Last administered on 22:48; Admin Dose 200 MG; Start 12/22/16 at 17:00 Escitalopram Oxalate (Lexapro) 10 mg DAILY PO Last administered on 12/26/16 09:43; Admin Dose 10 MG; Start 12/23/16 at 09:00 EZETIMIBE (Zetia) 10 mg DAILY PO Last administered on 12/26/16 09:41; Admin Dose 10 MG; Start 12/23/16 at 09:00 Furosemide (Lasix) 40 mg DAILY PO Last administered on 12/26/16 09:43; Admin Dose 40 MG; Start 12/23/16 at 09:00 Gabapentin (Neurontin) 300 mg TID PO Last administered on 12/26/16 22:49; Admin Dose 300 MG; Start 12/22/16 at 21:00 Linagliptin (Tradjenta) 5 mg DAILY PO Last administered on 12/26/16 09:43; Admin Dose 5 MG; Start 12/23/16 at 09:00 Metformin HCl (Glucophage) 1,000 mg BID PO Last administered on 12/26/16 22: 49; Admin Dose 1,000 MG; Start 12/22/16 at 21:00 Potassium Chloride (Micro-K) 8 meq DAILY PO Last administered on 12/26/16 09: 39; Admin Dose 8 MEQ; Start 12/23/16 at 09:00 Prednisone (Prednisone) 10 mg DAILY PO Last administered on 12/26/16 09:42; Admin Dose 10 MG; Start 12/23/16 at 09:00 Salmeterol Xinafoate/ Fluticasone (Advair 250/50 Diskus) 1 inh BID INH Last administered on 12/26/16 22:50; Admin Dose 1 INH; Start 12/22/16 at 21:00 Solifenacin (Vesicare) 5 mg DAILY PO Last administered on 12/26/16 09:00; Admin Dose 5 MG; Start 12/23/16 at 09:00 Tiotropium [place] (Spiriva) 1 inh DAILY INH Last administered on 12/26/16 10 :02; Admin Dose 1 INH; Start 12/23/16 at 09:00 Voriconazole (Vfend) 200 mg BID PO Last administered on 12/26/16 22:49; Admin Dose 200 MG; Start 12/22/16 at 21:00 Enoxaparin Sodium (Lovenox) 80 mg BID SC Last administered on 12/26/16 23:07 ; Admin Dose 80 MG; Start 12/22/16 at 21:00 Flecainide Acetate (Tambocor) 150 mg BID PO Last administered on 12/26/16 22: 48; Admin Dose 150 MG; Start 12/22/16 at 21:00 Polyethylene Glycol (Miralax) 17 gm BID PO Last administered on 12/26/16 22: 49; Admin Dose 17 GM; Start 12/22/16 at 21:00 Lorazepam (Ativan) 0.5 mg Q4H PRN PO ANXIETY; Start 12/22/16 at 20:30 Acetaminophen/ Hydrocodone Bitart ([place] (10/325)) 1 tab Q6H PRN PO Pain Last administered on 12/26/16 23:29; Admin Dose 1 TAB; Start 12/23/16 at 15:12 Ibuprofen (Motrin) 600 mg Q6H PRN PO PAIN OR TEMP ABOVE 38C Last administered on 12/26/16 17:40; Admin Dose 600 MG; Start 12/23/16 at 14:00 Divalproex Sodium (Depakote) 125 mg TID PO Last administered on 12/26/16 22: 48; Admin Dose 125 MG; Start 12/23/16 at 21:00 Levofloxacin (Levaquin) 500 mg DAILY@06 PO Last administered on 12/27/16 06: 12; Admin Dose 500 MG; Start 12/25/16 at 06:00 Amoxicillin (Amoxicillin) 500 mg Q6 PO Last administered on 12/27/16 06:12; Admin Dose 500 MG; Start 12/25/16 at 19:00 Lactulose (Enulose) 20 gm DAILY PO Last administered on 12/26/16 10:02; Admin Dose 20 GM; Start 12/26/16 at 09:00 STONE HERNANDEZ MD Dec 27, 2016 08:54
[2016-12-27 09:18] LABS: BASOPHIL # 0.1 10^3/ul (0.0-0.1); BASOPHILS % 0.4 % (0.0-2.0); EOSINOPHILS # 0.2 10^3/ul (0.0-0.5); EOSINOPHILS % 1.4 % (0.0-7.0); HEMATOCRIT 38.4 % (37.0-47.0); HEMOGLOBIN 11.5 g/dl (12.0-16.0); LYMPHOCYTES # 2.1 10^3/ul (0.8-2.9); LYMPHOCYTES % 15.1 % (15.0-51.0); MEAN CORPUSCULAR HEMOGLOBIN 29.7 pg (29.0-33.0); MEAN CORPUSCULAR HGB CONC 29.9 g/dl (32.0-37.0); MEAN CORPUSCULAR VOLUME 99.2 fl (82.0-101.0); MEAN PLATELET VOLUME 12.1 fl (7.4-10.4); MONOCYTE # 0.9 10^3/ul (0.3-0.9); MONOCYTES % 6.7 % (0.0-11.0); NEUTROPHIL # 10.6 10^3/ul (1.6-7.5); NEUTROPHILS % 75.9 % (39.0-77.0); PLATELET COUNT 291 10^3/UL (140-415); RED BLOOD COUNT 3.87 10^6/ul (4.20-5.40); RED CELL DISTRIBUTION WIDTH 14.7 % (11.5-14.5); WHITE BLOOD COUNT 13.9 10^3/ul (4.8-10.8)
[2016-12-27 09:44] LABS: CALCIUM 9.3 mg/dl (8.4-10.2); CREATININE 0.9 mg/dl (0.44-1.00); POTASSIUM 5.1 mmol/L (3.5-5.1)
--- NOTE | 2016-12-27 11:43 | CONS ---
Date/Time of Note Date/Time of Note DATE: 12/27/16 TIME: 11:33 Assessment/Plan Assessment/Plan Chief Complaint/Hosp Course 1. Chronic incarcerated ventral hernia. No surgery to repair at this time since recurrence is very high with her super morbid obesity. Chronic constipation -weight loss -gi eval -sbft vs ct with oral contrast -bowel regimen 2. PNA -pulmonary toilette -abx -weight loss 3. Possible panniculitis improved -weight loss -abx prn 4. CHF -gentle diuresis -judicious fluid management 5. Renal insufficiency -judicious fluid management -avoid nephrotoxic agents 6. Anemia -obs 7. DM -diet/med control -weight loss 8. HTN -diet/med control -encourage weight loss 9. Super morbid obesity, bmi 62 -encourage diet optimization -encourage exercise -?surgical weight loss 10. Ischemic cardiac disease -card optimization 11. GERD -ppi -weight loss 12. Snoring, possible sleep apnea -weight loss -cpap Thank you very much for consulting me in this patient's care, Problems: Consultation Date/Type/Reason Admit Date/Time Dec 21, 2016 at 17:19 Date of Consultation: Dec 27, 2016 Type of Consultation: Gen Surgical Reason for Consultation Chronic incarcerated ventral hernia Super morbid obesity, BMI 62 Constipation Referring Provider: STONE HERNANDEZ MD Hx of Present Illness 76yo female with significant comorbidities presents with shortness of breath, and weakness to [facility] and is found to have chf/pna. She also complained of pressure type chest pain but troponin has been negative. Patient has been admitted and diuresed. Her symptoms have somewhat improved. She reports minimal abdominal pain that is chronic. She is having bowel functions with flatus but constipated x 10 days. She has had a chronically incarcerated ventral hernia that is asymptomatic. She denies dysuria, vaginal dc, marei, dizziness, visual or neuro changes. However, she does report memory loss, and joint swellings. Surgical consult is obtained for further evaluation and treatment. Constitutional: poor po, No chills, No diaphoresis, No febrile, No improved, No no complaints, No other, No requiring IVF, No requiring O2 Eyes: redness, visual change, No no complaints, No other, No pain ENT: No bleeding, No congestion, No discharge, No dysphagia, No no complaints, No other, No pain, No sore throat Respiratory: shortness of breath, No cough, No no complaints, No other, No pain, No pleuritic pain, No sputum, No wheezing Cardiovascular: orthopenea, palpitations, paroxysmal nocturnal dyspnea, No chest pain, No edema, No lightheadedness, No no complaints, No other Gastrointestinal: constipation, flatus, pain (min, chronic), passing stool ( but overall chroic constipation), No blood, No decreased appetite, No diarrhea, No nausea, No no complaints, No other, No vomiting Genitourinary: No bleeding, No discharge, No dysuria, No flank pain, No hematuria, No no complaints, No other Musculoskeletal: back pain, bone/joint pain, neck pain, No no complaints, No other, No restricted range of motion, No swelling Skin: bruising, erythema, pruritis, rash, No laceration, No no complaints, No other, No skin lesions Neurologic: confusion, headache, No dizziness, No focal-weakness, No no complaints, No other, No seizure, No syncope Psychological: anxiety, No confusion, No depression, No nl mood/affect, No no complaints, No other, No suicidal Immunologic: pruritis Past Medical History 1. Pulmonary edema 2. CHF 3. Incarcerated ventral hernia 4. Super morbid obesity 5. Malignant hypertension 6. 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 7. Ischemic cardiac disease 8. Angina 9. Pannus with panniculitis 10. Anxiety with episodes of panic attacks. 11. Major depression. 12. Alzheimer's disease. 13. Palpitations 14. Anemia of chronic disease. 15. Hypomagnesemia 16. Sacral decubitus ulcer 17. Pain syndrome 18. Apnea, snoring 19. GERD 20. Dyslipidemia 21. Asthma 22. Renal insufficiency 23. DM 24. DVT 25. Diverticulitis 26. HTN 27. IBS 28. Hypothyroid 29. PUD Past Surgical History Open midline cholecystectomy Past Surgical Hx: cholecystectomy, endoscopy, other Family History Significant Family History: no pertinent family hx Social History Alcohol Use: none Smoking Status: Never smoker Drug Use: none Exam/Review of Systems Vital Signs Vitals Vital Signs Date Time Temp Pulse Resp B/P Pulse Ox O2 Delivery O2 Flow Rate FiO2 12/27/16 10:21 Nasal Cannula 2.0 12/27/16 08:10 73 20 96 12/27/16 07:43 98.5 133/65 Intake and Output 12/26/16 12/26/16 12/27/16 15:00 23:00 07:00 Intake Total 600 ml 260 ml Balance 600 ml 260 ml Exam Constitutional: alert, oriented, super obese, No distress Psych: nl mood/affect, No anxiety Head: normocephalic, atraumatic Eyes: EOMI, PERRL, No icteric ENMT: nl external ears & nose, mucosa pink and moist Neck: supple, non-tender Respiratory: diminished breath sounds, No normal air movement, No congested cough, No intercostal retraction, No labored breathing Cardiovascular: regular rate and rhythm, No edema Gastrointestinal: soft, non-tender, other (Incarcerated ventral hernia), No rebound or guarding Musculoskeletal: No nl extremities to inspection, No nl gait and stance, No joint tenderness Extremities: No calf tenderness, No cyanosis Neurological: nl mental status, nl speech Skin: No diaphoresis Lymph: nl lymph nodes Results Result Diagram: 12/27/16 0853 12/27/16 0853 Results 24 hrs Laboratory Tests Test 12/26/16 12:23 12/26/16 13:54 12/26/16 17:34 12/26/16 20:41 Bedside Glucose 135 141 Magnesium Level 2.4 White Blood Count 11.7 H Red Blood Count 3.77 L Hemoglobin 11.6 L Hematocrit 37.5 Mean Corpuscular Volume 99.5 Mean Corpuscular Hemoglobin 30.8 Mean Corpuscular Hemoglobin Concent 30.9 L Red Cell Distribution Width 14.4 Platelet Count 293 Mean Platelet Volume 12.0 H Neutrophils % 81.7 H Lymphocytes % 10.7 L Monocytes % 5.9 Eosinophils % 0.9 Basophils % 0.3 Nucleated Red Blood Cells % 0.0 Neutrophils # 9.6 H Lymphocytes # 1.3 Monocytes # 0.7 Eosinophils # 0.1 Basophils # 0.0 Nucleated Red Blood Cells # 0.0 Erythrocyte Sedimentation Rate 77 H Absolute Reticulocyte Count 0.077 Percent Reticulocyte Count 2.1 H Sodium Level 141 Potassium Level 5.4 H Chloride Level 102 Carbon Dioxide Level 27 Anion Gap 17 H Blood Urea Nitrogen 15 Creatinine 0.99 Glucose Level 124 Uric Acid 7.7 Calcium Level 9.2 Iron Level 61 Total Iron Binding Capacity 232 L Percent Iron Saturation 26 Total Bilirubin 0.0 L Direct Bilirubin 0.00 Indirect Bilirubin 0.0 Aspartate Amino Transf (AST/SGOT) 53 H Alanine Aminotransferase (ALT/SGPT) 34 Alkaline Phosphatase 115 Lactate Dehydrogenase 570 Total Protein 7.9 # Albumin 3.9 Globulin 4.00 H Albumin/Globulin Ratio 0.97 Carcinoembryonic Antigen 6.4 H Folate 4.6 Thyroid Stimulating Hormone (TSH) 1.420 Test 12/26/16 22:45 12/27/16 08:01 12/27/16 08:53 Bedside Glucose 115 118 White Blood Count 13.9 H Red Blood Count 3.87 L Hemoglobin 11.5 L Hematocrit 38.4 Mean Corpuscular Volume 99.2 Mean Corpuscular Hemoglobin 29.7 Mean Corpuscular Hemoglobin Concent 29.9 L Red Cell Distribution Width 14.7 H Platelet Count 291 Mean Platelet Volume 12.1 H Neutrophils % 75.9 Lymphocytes % 15.1 Monocytes % 6.7 Eosinophils % 1.4 Basophils % 0.4 Nucleated Red Blood Cells % 0.0 Neutrophils # 10.6 H Lymphocytes # 2.1 Monocytes # 0.9 Eosinophils # 0.2 Basophils # 0.1 Nucleated Red Blood Cells # 0.0 Sodium Level 141 Potassium Level 5.1 Chloride Level 101 Carbon Dioxide Level 28 Anion Gap 17 H Blood Urea Nitrogen 16 Creatinine 0.90 Glucose Level 110 Calcium Level 9.3 Magnesium Level 1.9 Medications Medications Current Medications Ondansetron HCl (Zofran Inj) 4 mg Q6H PRN IV NAUSEA AND/OR VOMITING Last administered on 12/26/16 00:47; Admin Dose 4 MG; Start 12/21/16 at 23:00 Morphine Sulfate (morphine) 2 mg Q4H PRN IV PAIN Last administered on 00:09; Admin Dose 2 MG; Start 12/21/16 at 23:00 Diagnostic Test (Pha) (Accu-Chek) 1 ea 02 XX Last administered on 12/23/16 02: 31; Admin Dose 1 EA; Start 12/22/16 at 02:00 Miscellaneous Information 1 ea NOTE XX ; Start 12/21/16 at 23:00 Glucose (Glutose) 15 gm Q15M PRN PO DECREASED GLUCOSE; Start 12/21/16 at 23:00 Glucose (Glutose) 22.5 gm Q15M PRN PO DECREASED GLUCOSE; Start 12/21/16 at 23: 00 Dextrose (D50w Syringe) 25 ml Q15M PRN IV DECREASED GLUCOSE; Start 12/21/16 at 23:00 Dextrose (D50w Syringe) 50 ml Q15M PRN IV DECREASED GLUCOSE; Start 12/21/16 at 23:00 Glucagon (Glucagen) 1 mg Q15M PRN IM DECREASED GLUCOSE; Start 12/21/16 at 23:00 Glucose (Glutose) 15 gm Q15M PRN BUCCAL DECREASED GLUCOSE; Start 12/21/16 at 23 :00 Aspirin (Halfprin) 81 mg DAILY PO Last administered on 12/27/16 08:26; Admin Dose 81 MG; Start 12/23/16 at 09:00 Bisacodyl (Dulcolax Supp) 10 mg DAILY PRN [place] CONSTIPATION Last administered on 12/25/16 12:41; Admin Dose 10 MG; Start 12/22/16 at 17:00 Clonidine (Catapres) 0.1 mg DAILY PRN PO HTN; Start 12/22/16 at 17:00 Diphenhydramine HCl (Benadryl) 25 mg BID PRN PO ITCHING; Start 12/22/16 at 17: 00 Docusate Sodium (Colace) 200 mg BID PRN PO CONSTIPATION Last administered on 22:48; Admin Dose 200 MG; Start 12/22/16 at 17:00 Escitalopram Oxalate (Lexapro) 10 mg DAILY PO Last administered on 12/27/16 08:27; Admin Dose 10 MG; Start 12/23/16 at 09:00 EZETIMIBE (Zetia) 10 mg DAILY PO Last administered on 12/27/16 08:30; Admin Dose 10 MG; Start 12/23/16 at 09:00 Furosemide (Lasix) 40 mg DAILY PO Last administered on 12/27/16 08:26; Admin Dose 40 MG; Start 12/23/16 at 09:00 Gabapentin (Neurontin) 300 mg TID PO Last administered on 12/27/16 08:28; Admin Dose 300 MG; Start 12/22/16 at 21:00 Linagliptin (Tradjenta) 5 mg DAILY PO Last administered on 12/27/16 08:29; Admin Dose 5 MG; Start 12/23/16 at 09:00 Metformin HCl (Glucophage) 1,000 mg BID PO Last administered on 12/27/16 08: 25; Admin Dose 1,000 MG; Start 12/22/16 at 21:00 Prednisone (Prednisone) 10 mg DAILY PO Last administered on 12/27/16 08:28; Admin Dose 10 MG; Start 12/23/16 at 09:00 Salmeterol Xinafoate/ Fluticasone (Advair 250/50 Diskus) 1 inh BID INH Last administered on 12/27/16 08:23; Admin Dose 1 INH; Start 12/22/16 at 21:00 Solifenacin (Vesicare) 5 mg DAILY PO Last administered on 12/26/16 09:00; Admin Dose 5 MG; Start 12/23/16 at 09:00 Tiotropium [place] (Spiriva) 1 inh DAILY INH Last administered on 12/27/16 08 :24; Admin Dose 1 INH; Start 12/23/16 at 09:00 Voriconazole (Vfend) 200 mg BID PO Last administered on 12/27/16 08:38; Admin Dose 200 MG; Start 12/22/16 at 21:00 Enoxaparin Sodium (Lovenox) 80 mg BID SC Last administered on 12/27/16 08:22 ; Admin Dose 80 MG; Start 12/22/16 at 21:00 Flecainide Acetate (Tambocor) 150 mg BID PO Last administered on 12/27/16 08: 29; Admin Dose 150 MG; Start 12/22/16 at 21:00 Polyethylene Glycol (Miralax) 17 gm BID PO Last administered on 12/27/16 08: 27; Admin Dose 17 GM; Start 12/22/16 at 21:00 Lorazepam (Ativan) 0.5 mg Q4H PRN PO ANXIETY; Start 12/22/16 at 20:30 Acetaminophen/ Hydrocodone Bitart ([place] (10/325)) 1 tab Q6H PRN PO Pain Last administered on 12/26/16 23:29; Admin Dose 1 TAB; Start 12/23/16 at 15:12 Ibuprofen (Motrin) 600 mg Q6H PRN PO PAIN OR TEMP ABOVE 38C Last administered on 12/26/16 17:40; Admin Dose 600 MG; Start 12/23/16 at 14:00 Divalproex Sodium (Depakote) 125 mg TID PO Last administered on 12/27/16 08: 25; Admin Dose 125 MG; Start 12/23/16 at 21:00 Levofloxacin (Levaquin) 500 mg DAILY@06 PO Last administered on 12/27/16 06: 12; Admin Dose 500 MG; Start 12/25/16 at 06:00 Amoxicillin (Amoxicillin) 500 mg Q6 PO Last administered on 12/27/16 06:12; Admin Dose 500 MG; Start 12/25/16 at 19:00 Lactulose (Enulose) 20 gm DAILY PO Last administered on 12/27/16 08:25; Admin Dose 20 GM; Start 12/26/16 at 09:00 KAREN MEDINA MD Dec 27, 2016 11:43
--- NOTE | 2016-12-27 11:45 | CONS ---
DATE OF ADMISSION: 12/21/2016 DATE OF CONSULTATION: 12/26/2016 TYPE OF CONSULTATION: Infectious Disease. REASON FOR CONSULTATION: Antibiotic management. HISTORY OF PRESENT ILLNESS: Ness Willis is a 76-year-old female who was admitted with worsening shortness of breath. Her past problems include: 1. Coronary artery disease and congestive heart failure. 2. Abdominal pain. 3. Adult-onset diabetes mellitus. 4. Dyslipidemia. 5. Anxiety. 6. Status post cholecystectomy. 7. History of asthma. 8. Palpitations and bradycardia. 9. Diverticulitis. 10. Major depression. 11. Morbid obesity. 12. Hypertension. 13. Urinary retention. Acutely, the patient comes into the hospital. On admission, she has a white count of 10.6, H and H of 10.3 and 34.5, platelet count of 237,000. BUN and creatinine 16/0.8, patient is on multiple medi cations. HOSPITAL COURSE: Her chest x-ray on admission showed worsening pulmonary edema, worse appearance of the left mid and lower lung zones consistent with atelectasis or pneumonia, cardiomegaly and athero sclerosis, unremarkable chest radiograph. Her chest x-ray from the shows superimposed infiltra monica from pneumonia cannot be excluded. She had an ultrasound of the breast that showed no evidence of malignancy. She had an x-ray of the knee that showed DJD. A CT scan of her face showed no acute facial fracture or dislocation, mild scattered paranasal sinus disease. A CT scan of the lumbar sp ine shows no acute fracture, multilevel moderate to severe degenerative disk disease L3 through S1 w ith disk osteophytes. She has severe central canal narrowing at L1-L2 and L3-L4, L4-L5. A pelvic x -ray was showing a Mascorro catheter, no obvious fractures. Abdominal x-ray shows DJD of the spine. A cervical CT scan also showed no acute fractures, but canal stenosis. On the , her urine grew o ut enterococcus species sensitive to ampicillin, resistant to Cipro and levofloxacin. The patient w as seen by Dr. Myers in neurology. She had shaking activity, hallucinations and delusions. He considered starting her on Depakote, Lexapro and Neurontin. She was seen by Dr. Pickard in neurosur zeyad. He felt she is not a surgical candidate because of her morbid obesity with regards to lumbar stenosis. White count on the was 9.9. She was seen by Dr. Queen. The patient was on amox icillin and Levaquin. PAST MEDICAL HISTORY: Operations as outlined. FAMILY HISTORY: Noncontributory. SOCIAL HISTORY: She does not smoke, drink or abuse drugs. ALLERGIES: NONE TO PENICILLIN, SULFA OR FOODS. MEDICATIONS: Per chart. REVIEW OF SYSTEMS: Noncontributory. PHYSICAL EXAMINATION: GENERAL: The patient is awake, frail, morbidly obese female. VITAL SIGNS: Stable, presently in no acute distress. SKIN: Without generalized rash. HEENT: Within normal limits. NECK: Supple. LYMPH NODES: None palpable. CHEST: Decreased breath sounds at the bases. HEART: Without murmur or gallop. ABDOMEN: Soft, nontender. She is distended. There is no organosplenomegaly or masses. EXTREMITIES: Without cyanosis, clubbing, or edema. RECTAL/GENITAL EXAM: She has a Mascorro catheter which has now been removed, so the Mascorro catheter is out. NEUROLOGIC: Lethargic, but no focal neurological abnormality. IMPRESSION AND PLAN: The patient has evidence of pneumonitis as well as urinary tract infection. S he is on amoxicillin for the urinary tract infection and Levaquin for probable pneumonitis. She is also on Voriconazole for possible yeast infection. We will continue to follow her. I will dictate my findings to Dr. Ruiz and to the consults. Dictated By: JUANITO MERCER MD, JD/NTS Conf#: [id number] DID#: [id number] CC: STONE RUIZ MD;*End*
[2016-12-27] MEDS: HYDROCODONE/APAP (10/325) TAB PO PRN ×2 (12:12→18:12)
--- NOTE | 2016-12-27 15:11 | CONS ---
Date/Time of Note Date/Time of Note DATE: 12/27/16 TIME: 15:07 Assessment/Plan Assessment/Plan Chief Complaint/Hosp Course 1. Anemia, complex, multifactorial with component ACD -obs NO NEEDS FOR TRANSFUSION AT PRESENT LEUKOCYTOSIS- REACTIVE MONITOR CLOSELY ATB- PER ID 2. Chronic incarcerated ventral hernia. No surgery to repair at this time since recurrence is very high with her super morbid obesity. Chronic constipation -weight loss -gi eval -sbft vs ct with oral contrast -bowel regimen 3. PNA -pulmonary toilette -abx -weight loss 4. Possible panniculitis improved -weight loss -abx prn 5. CHF -gentle diuresis -judicious fluid management 5. Renal insufficiency -judicious fluid management -avoid nephrotoxic agents 6. DM -diet/med control -weight loss 7. HTN -diet/med control -encourage weight loss 8. Super morbid obesity, bmi 62 -encourage diet optimization -encourage exercise -?surgical weight loss 9. Ischemic cardiac disease -card optimization 10. GERD -ppi -weight loss 11. Snoring, possible sleep apnea -weight loss -cpap Problems: Consultation Date/Type/Reason Admit Date/Time Dec 21, 2016 at 17:19 Initial Consult Date 12/26/16 Type of Consultation: HEMEON Referring Provider: STONE HERNANDEZ MD 24 HR Interval Summary Free Text/Dictation ALL NOTED COUNT STABLE NO BLEEDING NO HEMOLYSIS Exam/Review of Systems Vital Signs Vitals Vital Signs Date Time Temp Pulse Resp B/P Pulse Ox O2 Delivery O2 Flow Rate FiO2 12/27/16 12:02 78 12/27/16 11:49 98.6 18 139/76 94 12/27/16 10:21 Nasal Cannula 2.0 Intake and Output 12/26/16 12/26/16 12/27/16 15:00 23:00 07:00 Intake Total 600 ml 260 ml Balance 600 ml 260 ml Exam Constitutional: alert, oriented, super obese, No distress Psych: nl mood/affect, No anxiety Head: normocephalic, atraumatic Eyes: EOMI, PERRL, No icteric ENMT: nl external ears & nose, mucosa pink and moist Neck: supple, non-tender Respiratory: diminished breath sounds, No normal air movement, No congested cough, No intercostal retraction, No labored breathing Cardiovascular: regular rate and rhythm, No edema Gastrointestinal: soft, non-tender, other (Incarcerated ventral hernia), No rebound or guarding Musculoskeletal: No nl extremities to inspection, No nl gait and stance, No joint tenderness Extremities: No calf tenderness, No cyanosis Neurological: nl mental status, nl speech Skin: No diaphoresis Lymph: nl lymph nodes Results Result Diagram: 12/27/16 0853 12/27/16 0853 Results 24 hrs Laboratory Tests Test 12/26/16 17:34 12/26/16 20:41 12/26/16 22:45 12/27/16 08:01 Bedside Glucose 141 115 118 White Blood Count 11.7 H Red Blood Count 3.77 L Hemoglobin 11.6 L Hematocrit 37.5 Mean Corpuscular Volume 99.5 Mean Corpuscular Hemoglobin 30.8 Mean Corpuscular Hemoglobin Concent 30.9 L Red Cell Distribution Width 14.4 Platelet Count 293 Mean Platelet Volume 12.0 H Neutrophils % 81.7 H Lymphocytes % 10.7 L Monocytes % 5.9 Eosinophils % 0.9 Basophils % 0.3 Nucleated Red Blood Cells % 0.0 Neutrophils # 9.6 H Lymphocytes # 1.3 Monocytes # 0.7 Eosinophils # 0.1 Basophils # 0.0 Nucleated Red Blood Cells # 0.0 Erythrocyte Sedimentation Rate 77 H Absolute Reticulocyte Count 0.077 Percent Reticulocyte Count 2.1 H Sodium Level 141 Potassium Level 5.4 H Chloride Level 102 Carbon Dioxide Level 27 Anion Gap 17 H Blood Urea Nitrogen 15 Creatinine 0.99 Glucose Level 124 Uric Acid 7.7 Calcium Level 9.2 Iron Level 61 Total Iron Binding Capacity 232 L Percent Iron Saturation 26 Total Bilirubin 0.0 L Direct Bilirubin 0.00 Indirect Bilirubin 0.0 Aspartate Amino Transf (AST/SGOT) 53 H Alanine Aminotransferase (ALT/SGPT) 34 Alkaline Phosphatase 115 Lactate Dehydrogenase 570 Total Protein 7.9 # Albumin 3.9 Globulin 4.00 H Albumin/Globulin Ratio 0.97 Carcinoembryonic Antigen 6.4 H Folate 4.6 Thyroid Stimulating Hormone (TSH) 1.420 Test 12/27/16 08:53 12/27/16 12:07 White Blood Count 13.9 H Red Blood Count 3.87 L Hemoglobin 11.5 L Hematocrit 38.4 Mean Corpuscular Volume 99.2 Mean Corpuscular Hemoglobin 29.7 Mean Corpuscular Hemoglobin Concent 29.9 L Red Cell Distribution Width 14.7 H Platelet Count 291 Mean Platelet Volume 12.1 H Neutrophils % 75.9 Lymphocytes % 15.1 Monocytes % 6.7 Eosinophils % 1.4 Basophils % 0.4 Nucleated Red Blood Cells % 0.0 Neutrophils # 10.6 H Lymphocytes # 2.1 Monocytes # 0.9 Eosinophils # 0.2 Basophils # 0.1 Nucleated Red Blood Cells # 0.0 Sodium Level 141 Potassium Level 5.1 Chloride Level 101 Carbon Dioxide Level 28 Anion Gap 17 H Blood Urea Nitrogen 16 Creatinine 0.90 Glucose Level 110 Calcium Level 9.3 Magnesium Level 1.9 Bedside Glucose 125 Medications Medications Current Medications Ondansetron HCl (Zofran Inj) 4 mg Q6H PRN IV NAUSEA AND/OR VOMITING Last administered on 12/26/16 00:47; Admin Dose 4 MG; Start 12/21/16 at 23:00 Morphine Sulfate (morphine) 2 mg Q4H PRN IV PAIN Last administered on 00:09; Admin Dose 2 MG; Start 12/21/16 at 23:00 Diagnostic Test (Pha) (Accu-Chek) 1 ea 02 XX Last administered on 12/23/16 02: 31; Admin Dose 1 EA; Start 12/22/16 at 02:00 Miscellaneous Information 1 ea NOTE XX ; Start 12/21/16 at 23:00 Glucose (Glutose) 15 gm Q15M PRN PO DECREASED GLUCOSE; Start 12/21/16 at 23:00 Glucose (Glutose) 22.5 gm Q15M PRN PO DECREASED GLUCOSE; Start 12/21/16 at 23: 00 Dextrose (D50w Syringe) 25 ml Q15M PRN IV DECREASED GLUCOSE; Start 12/21/16 at 23:00 Dextrose (D50w Syringe) 50 ml Q15M PRN IV DECREASED GLUCOSE; Start 12/21/16 at 23:00 Glucagon (Glucagen) 1 mg Q15M PRN IM DECREASED GLUCOSE; Start 12/21/16 at 23:00 Glucose (Glutose) 15 gm Q15M PRN BUCCAL DECREASED GLUCOSE; Start 12/21/16 at 23 :00 Aspirin (Halfprin) 81 mg DAILY PO Last administered on 12/27/16 08:26; Admin Dose 81 MG; Start 12/23/16 at 09:00 Bisacodyl (Dulcolax Supp) 10 mg DAILY PRN [place] CONSTIPATION Last administered on 12/25/16 12:41; Admin Dose 10 MG; Start 12/22/16 at 17:00 Clonidine (Catapres) 0.1 mg DAILY PRN PO HTN; Start 12/22/16 at 17:00 Diphenhydramine HCl (Benadryl) 25 mg BID PRN PO ITCHING; Start 12/22/16 at 17: 00 Docusate Sodium (Colace) 200 mg BID PRN PO CONSTIPATION Last administered on 22:48; Admin Dose 200 MG; Start 12/22/16 at 17:00 Escitalopram Oxalate (Lexapro) 10 mg DAILY PO Last administered on 12/27/16 08:27; Admin Dose 10 MG; Start 12/23/16 at 09:00 EZETIMIBE (Zetia) 10 mg DAILY PO Last administered on 12/27/16 08:30; Admin Dose 10 MG; Start 12/23/16 at 09:00 Furosemide (Lasix) 40 mg DAILY PO Last administered on 12/27/16 08:26; Admin Dose 40 MG; Start 12/23/16 at 09:00 Gabapentin (Neurontin) 300 mg TID PO Last administered on 12/27/16 12:12; Admin Dose 300 MG; Start 12/22/16 at 21:00 Linagliptin (Tradjenta) 5 mg DAILY PO Last administered on 12/27/16 08:29; Admin Dose 5 MG; Start 12/23/16 at 09:00 Metformin HCl (Glucophage) 1,000 mg BID PO Last administered on 12/27/16 08: 25; Admin Dose 1,000 MG; Start 12/22/16 at 21:00 Prednisone (Prednisone) 10 mg DAILY PO Last administered on 12/27/16 08:28; Admin Dose 10 MG; Start 12/23/16 at 09:00 Salmeterol Xinafoate/ Fluticasone (Advair 250/50 Diskus) 1 inh BID INH Last administered on 12/27/16 08:23; Admin Dose 1 INH; Start 12/22/16 at 21:00 Solifenacin (Vesicare) 5 mg DAILY PO Last administered on 12/26/16 09:00; Admin Dose 5 MG; Start 12/23/16 at 09:00 Tiotropium [place] (Spiriva) 1 inh DAILY INH Last administered on 12/27/16 08 :24; Admin Dose 1 INH; Start 12/23/16 at 09:00 Voriconazole (Vfend) 200 mg BID PO Last administered on 12/27/16 08:38; Admin Dose 200 MG; Start 12/22/16 at 21:00 Enoxaparin Sodium (Lovenox) 80 mg BID SC Last administered on 12/27/16 08:22 ; Admin Dose 80 MG; Start 12/22/16 at 21:00 Flecainide Acetate (Tambocor) 150 mg BID PO Last administered on 12/27/16 08: 29; Admin Dose 150 MG; Start 12/22/16 at 21:00 Polyethylene Glycol (Miralax) 17 gm BID PO Last administered on 12/27/16 08: 27; Admin Dose 17 GM; Start 12/22/16 at 21:00 Lorazepam (Ativan) 0.5 mg Q4H PRN PO ANXIETY; Start 12/22/16 at 20:30 Acetaminophen/ Hydrocodone Bitart ([place] (10/325)) 1 tab Q6H PRN PO Pain Last administered on 12/27/16 12:12; Admin Dose 1 TAB; Start 12/23/16 at 15:12 Ibuprofen (Motrin) 600 mg Q6H PRN PO PAIN OR TEMP ABOVE 38C Last administered on 12/26/16 17:40; Admin Dose 600 MG; Start 12/23/16 at 14:00 Divalproex Sodium (Depakote) 125 mg TID PO Last administered on 12/27/16 12: 12; Admin Dose 125 MG; Start 12/23/16 at 21:00 Levofloxacin (Levaquin) 500 mg DAILY@06 PO Last administered on 12/27/16 06: 12; Admin Dose 500 MG; Start 12/25/16 at 06:00 Amoxicillin (Amoxicillin) 500 mg Q6 PO Last administered on 12/27/16 12:15; Admin Dose 500 MG; Start 12/25/16 at 19:00 Lactulose (Enulose) 20 gm DAILY PO Last administered on 12/27/16 08:25; Admin Dose 20 GM; Start 12/26/16 at 09:00 JORGE PEREZ MD Dec 27, 2016 15:11
[2016-12-27] MEDS ORDERED: IOHEXOL 14.3 MG(I)/ML (ADULT) BTL PO ONE (15:30)
[2016-12-27] MEDS: ONDANSETRON 4 MG INJ IV PRN (16:14)
--- NOTE | 2016-12-27 16:35 | CONS ---
Date/Time of Note Date/Time of Note DATE: 12/27/16 TIME: 16:28 Assessment/Plan Assessment/Plan Chief Complaint/Hosp Course Acute on chronic diastolic heart failure: EF preserved. Mild CHF but close to euvolemic. Will repeat CXR in am. UTI Constipation with chronic incarcerated ventral hernia: treated medically for now H/o unknown cardiac arrhythmia: On flecainide chronically. DM HTN Bedbound state -ASA -lasix 40mg PO daily, repeat CXR tomorrow as difficult exam -flecainide -antibiotics per PMD -f/u CT abd and surgical recs Problems: Consultation Date/Type/Reason Admit Date/Time Dec 21, 2016 at 17:19 Date of Consultation: Dec 27, 2016 Type of Consultation: Cardiology Reason for Consultation CHF Referring Provider: STONE HERNANDEZ MD Hx of Present Illness 76 yo F with a h/o diastolic heart failure, cardiac arrhythmia (unclear details ) on flecainide, DM, HTN, HL, bedbound state for 10+ years, who presented secondary to SOB and foul smelling urine and was treated for CHF exacerbation as well as UTI. She was also noted to have 10 days of no BM and she was noted to have a chronic incarcerated ventral hernia which is evaluated by surgery and will be treated conservatively. The pt is known to me and always has multiple complaints including pain under her left breast, left leg pain, weakness. She constantly says "I dont feel well". Currently no SOB. No abdominal pain but still has not had a BM. per HPI Past Medical History per hPI Past Surgical History Past Surgical Hx: cholecystectomy, endoscopy, other Social History Alcohol Use: none Smoking Status: Never smoker Drug Use: none Exam/Review of Systems Vital Signs Vitals Vital Signs Date Time Temp Pulse Resp B/P Pulse Ox O2 Delivery O2 Flow Rate FiO2 12/27/16 16:02 78 12/27/16 15:43 18 98 Nasal Cannula 2.0 12/27/16 15:12 98.2 125/69 Intake and Output 12/26/16 12/26/16 12/27/16 15:00 23:00 07:00 Intake Total 600 ml 260 ml Balance 600 ml 260 ml Exam Constitutional: alert, oriented Psych: anxiety Head: atraumatic, normocephalic Eyes: nl conjunctiva ENMT: nl external ears & nose Neck: supple, No jvd Respiratory: diminished breath sounds, No clear to auscultation Cardiovascular: edema (trace), regular rate and rhythm, No systolic murmur Gastrointestinal: distended, soft, tender (mild) Extremities: normal pulses Neurological: nl mental status, nl speech Skin: No rash or lesions Results Result Diagram: 12/27/16 0853 12/27/16 0853 Results 24 hrs Laboratory Tests Test 12/26/16 17:34 12/26/16 20:41 12/26/16 22:45 12/27/16 08:01 Bedside Glucose 141 115 118 White Blood Count 11.7 H Red Blood Count 3.77 L Hemoglobin 11.6 L Hematocrit 37.5 Mean Corpuscular Volume 99.5 Mean Corpuscular Hemoglobin 30.8 Mean Corpuscular Hemoglobin Concent 30.9 L Red Cell Distribution Width 14.4 Platelet Count 293 Mean Platelet Volume 12.0 H Neutrophils % 81.7 H Lymphocytes % 10.7 L Monocytes % 5.9 Eosinophils % 0.9 Basophils % 0.3 Nucleated Red Blood Cells % 0.0 Neutrophils # 9.6 H Lymphocytes # 1.3 Monocytes # 0.7 Eosinophils # 0.1 Basophils # 0.0 Nucleated Red Blood Cells # 0.0 Erythrocyte Sedimentation Rate 77 H Absolute Reticulocyte Count 0.077 Percent Reticulocyte Count 2.1 H Sodium Level 141 Potassium Level 5.4 H Chloride Level 102 Carbon Dioxide Level 27 Anion Gap 17 H Blood Urea Nitrogen 15 Creatinine 0.99 Glucose Level 124 Uric Acid 7.7 Calcium Level 9.2 Iron Level 61 Total Iron Binding Capacity 232 L Percent Iron Saturation 26 Total Bilirubin 0.0 L Direct Bilirubin 0.00 Indirect Bilirubin 0.0 Aspartate Amino Transf (AST/SGOT) 53 H Alanine Aminotransferase (ALT/SGPT) 34 Alkaline Phosphatase 115 Lactate Dehydrogenase 570 Total Protein 7.9 # Albumin 3.9 Globulin 4.00 H Albumin/Globulin Ratio 0.97 Carcinoembryonic Antigen 6.4 H Folate 4.6 Thyroid Stimulating Hormone (TSH) 1.420 Test 12/27/16 08:53 12/27/16 12:07 White Blood Count 13.9 H Red Blood Count 3.87 L Hemoglobin 11.5 L Hematocrit 38.4 Mean Corpuscular Volume 99.2 Mean Corpuscular Hemoglobin 29.7 Mean Corpuscular Hemoglobin Concent 29.9 L Red Cell Distribution Width 14.7 H Platelet Count 291 Mean Platelet Volume 12.1 H Neutrophils % 75.9 Lymphocytes % 15.1 Monocytes % 6.7 Eosinophils % 1.4 Basophils % 0.4 Nucleated Red Blood Cells % 0.0 Neutrophils # 10.6 H Lymphocytes # 2.1 Monocytes # 0.9 Eosinophils # 0.2 Basophils # 0.1 Nucleated Red Blood Cells # 0.0 Sodium Level 141 Potassium Level 5.1 Chloride Level 101 Carbon Dioxide Level 28 Anion Gap 17 H Blood Urea Nitrogen 16 Creatinine 0.90 Glucose Level 110 Calcium Level 9.3 Magnesium Level 1.9 Bedside Glucose 125 Medications Medications Current Medications Ondansetron HCl (Zofran Inj) 4 mg Q6H PRN IV NAUSEA AND/OR VOMITING Last administered on 12/27/16 16:14; Admin Dose 4 MG; Start 12/21/16 at 23:00 Morphine Sulfate (morphine) 2 mg Q4H PRN IV PAIN Last administered on 00:09; Admin Dose 2 MG; Start 12/21/16 at 23:00 Diagnostic Test (Pha) (Accu-Chek) 1 ea 02 XX Last administered on 12/23/16 02: 31; Admin Dose 1 EA; Start 12/22/16 at 02:00 Miscellaneous Information 1 ea NOTE XX ; Start 12/21/16 at 23:00 Glucose (Glutose) 15 gm Q15M PRN PO DECREASED GLUCOSE; Start 12/21/16 at 23:00 Glucose (Glutose) 22.5 gm Q15M PRN PO DECREASED GLUCOSE; Start 12/21/16 at 23: 00 Dextrose (D50w Syringe) 25 ml Q15M PRN IV DECREASED GLUCOSE; Start 12/21/16 at 23:00 Dextrose (D50w Syringe) 50 ml Q15M PRN IV DECREASED GLUCOSE; Start 12/21/16 at 23:00 Glucagon (Glucagen) 1 mg Q15M PRN IM DECREASED GLUCOSE; Start 12/21/16 at 23:00 Glucose (Glutose) 15 gm Q15M PRN BUCCAL DECREASED GLUCOSE; Start 12/21/16 at 23 :00 Aspirin (Halfprin) 81 mg DAILY PO Last administered on 12/27/16 08:26; Admin Dose 81 MG; Start 12/23/16 at 09:00 Bisacodyl (Dulcolax Supp) 10 mg DAILY PRN [place] CONSTIPATION Last administered on 12/25/16 12:41; Admin Dose 10 MG; Start 12/22/16 at 17:00 Clonidine (Catapres) 0.1 mg DAILY PRN PO HTN; Start 12/22/16 at 17:00 Diphenhydramine HCl (Benadryl) 25 mg BID PRN PO ITCHING; Start 12/22/16 at 17: 00 Docusate Sodium (Colace) 200 mg BID PRN PO CONSTIPATION Last administered on 22:48; Admin Dose 200 MG; Start 12/22/16 at 17:00 Escitalopram Oxalate (Lexapro) 10 mg DAILY PO Last administered on 12/27/16 08:27; Admin Dose 10 MG; Start 12/23/16 at 09:00 EZETIMIBE (Zetia) 10 mg DAILY PO Last administered on 12/27/16 08:30; Admin Dose 10 MG; Start 12/23/16 at 09:00 Furosemide (Lasix) 40 mg DAILY PO Last administered on 12/27/16 08:26; Admin Dose 40 MG; Start 12/23/16 at 09:00 Gabapentin (Neurontin) 300 mg TID PO Last administered on 12/27/16 12:12; Admin Dose 300 MG; Start 12/22/16 at 21:00 Linagliptin (Tradjenta) 5 mg DAILY PO Last administered on 12/27/16 08:29; Admin Dose 5 MG; Start 12/23/16 at 09:00 Metformin HCl (Glucophage) 1,000 mg BID PO Last administered on 12/27/16 08: 25; Admin Dose 1,000 MG; Start 12/22/16 at 21:00 Prednisone (Prednisone) 10 mg DAILY PO Last administered on 12/27/16 08:28; Admin Dose 10 MG; Start 12/23/16 at 09:00 Salmeterol Xinafoate/ Fluticasone (Advair 250/50 Diskus) 1 inh BID INH Last administered on 12/27/16 08:23; Admin Dose 1 INH; Start 12/22/16 at 21:00 Solifenacin (Vesicare) 5 mg DAILY PO Last administered on 12/26/16 09:00; Admin Dose 5 MG; Start 12/23/16 at 09:00 Tiotropium [place] (Spiriva) 1 inh DAILY INH Last administered on 12/27/16 08 :24; Admin Dose 1 INH; Start 12/23/16 at 09:00 Voriconazole (Vfend) 200 mg BID PO Last administered on 12/27/16 08:38; Admin Dose 200 MG; Start 12/22/16 at 21:00 Enoxaparin Sodium (Lovenox) 80 mg BID SC Last administered on 12/27/16 08:22 ; Admin Dose 80 MG; Start 12/22/16 at 21:00 Flecainide Acetate (Tambocor) 150 mg BID PO Last administered on 12/27/16 08: 29; Admin Dose 150 MG; Start 12/22/16 at 21:00 Polyethylene Glycol (Miralax) 17 gm BID PO Last administered on 12/27/16 08: 27; Admin Dose 17 GM; Start 12/22/16 at 21:00 Lorazepam (Ativan) 0.5 mg Q4H PRN PO ANXIETY; Start 12/22/16 at 20:30 Acetaminophen/ Hydrocodone Bitart ([place] (10/325)) 1 tab Q6H PRN PO Pain Last administered on 12/27/16 12:12; Admin Dose 1 TAB; Start 12/23/16 at 15:12 Ibuprofen (Motrin) 600 mg Q6H PRN PO PAIN OR TEMP ABOVE 38C Last administered on 12/26/16 17:40; Admin Dose 600 MG; Start 12/23/16 at 14:00 Divalproex Sodium (Depakote) 125 mg TID PO Last administered on 12/27/16 12: 12; Admin Dose 125 MG; Start 12/23/16 at 21:00 Levofloxacin (Levaquin) 500 mg DAILY@06 PO Last administered on 12/27/16 06: 12; Admin Dose 500 MG; Start 12/25/16 at 06:00 Amoxicillin (Amoxicillin) 500 mg Q6 PO Last administered on 12/27/16 12:15; Admin Dose 500 MG; Start 12/25/16 at 19:00 Lactulose (Enulose) 20 gm DAILY PO Last administered on 12/27/16 08:25; Admin Dose 20 GM; Start 12/26/16 at 09:00 KEVIN CHOU Dec 27, 2016 16:35
--- NOTE | 2016-12-27 21:19 | CONS ---
Date/Time of Note Date/Time of Note DATE: 12/27/16 TIME: 21:17 Assessment/Plan Assessment/Plan Chief Complaint/Hosp Course 76 F wtih pMHx of HTN, COPD, CHF, DM II, Morbid obesity who is admitted for CHF Exacebration, and renal has been consulted for electrolyte imbalance and Fluid management. Problems: Additional Assessment/Plan 1. Acute CHF Exacerbation, acute on chronic, systolic and diastolic 2. Hypomagnesemia 3. Acute pulmonary edema due to acute CHF exaceration 4. HTN 5. COPD 6. Possible Pneumonia Plan: On PO Lasix 40mg po daily + amoxicillin, and levaquin PO abx Cr and electrolytes stable today neurology following continue other med, avoid nephrotoxic medications will follow up Consultation Date/Type/Reason Admit Date/Time Dec 21, 2016 at 17:19 Initial Consult Date 12/23/16 Type of Consultation: NEPHROLOGY Referring Provider: STONE HERNANDEZ MD 24 HR Interval Summary Free Text/Dictation Electrolytes and Cr normal today Exam/Review of Systems Vital Signs Vitals Vital Signs Date Time Temp Pulse Resp B/P Pulse Ox O2 Delivery O2 Flow Rate FiO2 12/27/16 20:14 98.1 86 16 149/70 95 12/27/16 15:43 Nasal Cannula 2.0 Intake and Output 12/26/16 12/26/16 12/27/16 15:00 23:00 07:00 Intake Total 600 ml 260 ml Balance 600 ml 260 ml Exam Constitutional: alert Psych: no complaints ENMT: nl external ears & nose Neck: non-tender, supple Respiratory: crackles/rales, diminished breath sounds Cardiovascular: nl pulses, regular rate and rhythm Gastrointestinal: non-tender, soft Musculoskeletal: muscle weakness, range of motion, swelling Results Result Diagram: 12/27/16 0853 12/27/16 0853 Results 24 hrs Laboratory Tests Test 12/26/16 22:45 12/27/16 08:01 12/27/16 08:53 12/27/16 12:07 Bedside Glucose 115 118 125 White Blood Count 13.9 H Red Blood Count 3.87 L Hemoglobin 11.5 L Hematocrit 38.4 Mean Corpuscular Volume 99.2 Mean Corpuscular Hemoglobin 29.7 Mean Corpuscular Hemoglobin Concent 29.9 L Red Cell Distribution Width 14.7 H Platelet Count 291 Mean Platelet Volume 12.1 H Neutrophils % 75.9 Lymphocytes % 15.1 Monocytes % 6.7 Eosinophils % 1.4 Basophils % 0.4 Nucleated Red Blood Cells % 0.0 Neutrophils # 10.6 H Lymphocytes # 2.1 Monocytes # 0.9 Eosinophils # 0.2 Basophils # 0.1 Nucleated Red Blood Cells # 0.0 Sodium Level 141 Potassium Level 5.1 Chloride Level 101 Carbon Dioxide Level 28 Anion Gap 17 H Blood Urea Nitrogen 16 Creatinine 0.90 Glucose Level 110 Calcium Level 9.3 Magnesium Level 1.9 Test 12/27/16 17:02 12/27/16 21:05 Bedside Glucose 113 108 Medications Medications Current Medications Ondansetron HCl (Zofran Inj) 4 mg Q6H PRN IV NAUSEA AND/OR VOMITING Last administered on 12/27/16 16:14; Admin Dose 4 MG; Start 12/21/16 at 23:00 Morphine Sulfate (morphine) 2 mg Q4H PRN IV PAIN Last administered on 00:09; Admin Dose 2 MG; Start 12/21/16 at 23:00 Diagnostic Test (Pha) (Accu-Chek) 1 ea 02 XX Last administered on 12/23/16 02: 31; Admin Dose 1 EA; Start 12/22/16 at 02:00 Miscellaneous Information 1 ea NOTE XX ; Start 12/21/16 at 23:00 Glucose (Glutose) 15 gm Q15M PRN PO DECREASED GLUCOSE; Start 12/21/16 at 23:00 Glucose (Glutose) 22.5 gm Q15M PRN PO DECREASED GLUCOSE; Start 12/21/16 at 23: 00 Dextrose (D50w Syringe) 25 ml Q15M PRN IV DECREASED GLUCOSE; Start 12/21/16 at 23:00 Dextrose (D50w Syringe) 50 ml Q15M PRN IV DECREASED GLUCOSE; Start 12/21/16 at 23:00 Glucagon (Glucagen) 1 mg Q15M PRN IM DECREASED GLUCOSE; Start 12/21/16 at 23:00 Glucose (Glutose) 15 gm Q15M PRN BUCCAL DECREASED GLUCOSE; Start 12/21/16 at 23 :00 Aspirin (Halfprin) 81 mg DAILY PO Last administered on 12/27/16 08:26; Admin Dose 81 MG; Start 12/23/16 at 09:00 Bisacodyl (Dulcolax Supp) 10 mg DAILY PRN [place] CONSTIPATION Last administered on 12/25/16 12:41; Admin Dose 10 MG; Start 12/22/16 at 17:00 Clonidine (Catapres) 0.1 mg DAILY PRN PO HTN; Start 12/22/16 at 17:00 Diphenhydramine HCl (Benadryl) 25 mg BID PRN PO ITCHING; Start 12/22/16 at 17: 00 Docusate Sodium (Colace) 200 mg BID PRN PO CONSTIPATION Last administered on 22:48; Admin Dose 200 MG; Start 12/22/16 at 17:00 Escitalopram Oxalate (Lexapro) 10 mg DAILY PO Last administered on 12/27/16 08:27; Admin Dose 10 MG; Start 12/23/16 at 09:00 EZETIMIBE (Zetia) 10 mg DAILY PO Last administered on 12/27/16 08:30; Admin Dose 10 MG; Start 12/23/16 at 09:00 Furosemide (Lasix) 40 mg DAILY PO Last administered on 12/27/16 08:26; Admin Dose 40 MG; Start 12/23/16 at 09:00 Gabapentin (Neurontin) 300 mg TID PO Last administered on 12/27/16 21:07; Admin Dose 300 MG; Start 12/22/16 at 21:00 Linagliptin (Tradjenta) 5 mg DAILY PO Last administered on 12/27/16 08:29; Admin Dose 5 MG; Start 12/23/16 at 09:00 Metformin HCl (Glucophage) 1,000 mg BID PO Last administered on 12/27/16 21: 06; Admin Dose 1,000 MG; Start 12/22/16 at 21:00 Prednisone (Prednisone) 10 mg DAILY PO Last administered on 12/27/16 08:28; Admin Dose 10 MG; Start 12/23/16 at 09:00 Salmeterol Xinafoate/ Fluticasone (Advair 250/50 Diskus) 1 inh BID INH Last administered on 12/27/16 21:07; Admin Dose 1 INH; Start 12/22/16 at 21:00 Solifenacin (Vesicare) 5 mg DAILY PO Last administered on 12/26/16 09:00; Admin Dose 5 MG; Start 12/23/16 at 09:00 Tiotropium [place] (Spiriva) 1 inh DAILY INH Last administered on 12/27/16 08 :24; Admin Dose 1 INH; Start 12/23/16 at 09:00 Voriconazole (Vfend) 200 mg BID PO Last administered on 12/27/16 21:07; Admin Dose 200 MG; Start 12/22/16 at 21:00 Enoxaparin Sodium (Lovenox) 80 mg BID SC Last administered on 12/27/16 08:22 ; Admin Dose 80 MG; Start 12/22/16 at 21:00 Flecainide Acetate (Tambocor) 150 mg BID PO Last administered on 12/27/16 21: 07; Admin Dose 150 MG; Start 12/22/16 at 21:00 Polyethylene Glycol (Miralax) 17 gm BID PO Last administered on 12/27/16 21: 05; Admin Dose 17 GM; Start 12/22/16 at 21:00 Lorazepam (Ativan) 0.5 mg Q4H PRN PO ANXIETY; Start 12/22/16 at 20:30 Acetaminophen/ Hydrocodone Bitart ([place] (10/325)) 1 tab Q6H PRN PO Pain Last administered on 12/27/16 18:12; Admin Dose 1 TAB; Start 12/23/16 at 15:12 Ibuprofen (Motrin) 600 mg Q6H PRN PO PAIN OR TEMP ABOVE 38C Last administered on 12/26/16 17:40; Admin Dose 600 MG; Start 12/23/16 at 14:00 Divalproex Sodium (Depakote) 125 mg TID PO Last administered on 12/27/16 21: 07; Admin Dose 125 MG; Start 12/23/16 at 21:00 Levofloxacin (Levaquin) 500 mg DAILY@06 PO Last administered on 12/27/16 06: 12; Admin Dose 500 MG; Start 12/25/16 at 06:00 Amoxicillin (Amoxicillin) 500 mg Q6 PO Last administered on 12/27/16 18:12; Admin Dose 500 MG; Start 12/25/16 at 19:00 Lactulose (Enulose) 20 gm DAILY PO Last administered on 12/27/16 08:25; Admin Dose 20 GM; Start 12/26/16 at 09:00 JACK VALLE MD Dec 27, 2016 21:19
[2016-12-28] VITALS (12 sets, daily range): BP systolic 111–149; BP diastolic 57–70; PULSE 74–87; RESP 18–20
[2016-12-28] MEDS: HYDROCODONE/APAP (10/325) TAB PO PRN ×4 (00:24→22:12)
[2016-12-28] MEDS: AMOXICILLIN 500 MG CAP PO SCH ×4 (00:24→17:34)
[2016-12-28] MEDS: ACCU-CHEK XX SCH (02:00)
[2016-12-28 05:51] LABS: PROTEIN, TOTAL 7.1 g/dL (6.1-8.1)
--- NOTE | 2016-12-28 06:04 | PN ---
DATE: 12/27/2016 SUBJECTIVE: The patient is sleeping, arousable, looks comfortable, no fevers overnight. WBC 13.9, H and H 11.5 and 38.4, platelets 291, neutrophils 75.9, BUN 16, creatinine 0.90. MICROBIOLOGY: Urine culture on 12/22/2016 grew enterococcus species only 10 to 20,000 colonies. ANTIMICROBIALS: She is on amoxicillin and Levaquin. DIAGNOSTICS: Chest x-ray on 12/25/2016 revealed cardiomegaly with pulmonary edema, questionable sup erimposed infiltrates greater. There is a left pleural effusion. PHYSICAL EXAMINATION: GENERAL: This is a morbidly obese, well-developed, elderly [place] woman who is in no distress. HEENT: Head atraumatic, normocephalic. Sclerae anicteric. Buccal mucosa dry. NECK: Supple. CHEST: Rise symmetrical. Breath sounds diminished to bases. HEART: S1, S2. ABDOMEN: Distended, soft, with evidence of the abdomen obese with bowel tones hypoactive. EXTREMITIES: With edema. ASSESSMENT: 1. Pneumonia. 2. Mild enterococcal urinary tract infection. 3. Morbid obesity. 4. Diabetes. 5. Coronary artery disease. 6. Chronic incarcerated ventral hernia, surgery on case, no recommendations for surgical repair at this time. PLAN: The patient remains stable on appropriate antibiotics. Surgery follows. Neurology on case a s well. Lower back pain with evidence of lumbar stenosis per CT on admission. Orthopedics follows. PLAN: The patient remains stable. Continue present care. Anti-aspiration measures and follow sarah mmendations of consultants. Dictated By: EMA BEACH NP for JUANITO ARGUETA/NTS Conf#: [id number] DID#: [id number] CC: EMA BEACH NP;*EndCC*
[2016-12-28] MEDS: LEVOFLOXACIN 500 MG TAB PO SCH (06:45)
[2016-12-28] MEDS: INSULIN ASPART [NOVOLOG] 3 ML PEN SC SCH ×4 (07:55→20:59)
[2016-12-28] MEDS: ALBUTEROL/IPRATROPIUM (NEB) 3 ML AMP HHN SCH ×4 (08:04→23:10)
[2016-12-28] MEDS: DIVALPROEX (EC) 125 MG TAB PO SCH ×3 (08:45→20:52)
[2016-12-28] MEDS: SALMETEROL/FLUTICASONE 250/50 INHA INH SCH ×2 (08:45→20:52)
[2016-12-28] MEDS: TIOTROPIUM 18 MCG CAPSULE INHA DEV INH SCH (08:45)
[2016-12-28] MEDS: ASPIRIN (EC) 81 MG TAB PO SCH (08:46)
[2016-12-28] MEDS: metFORMIN 500 MG TAB PO SCH ×2 (08:46→20:59)
[2016-12-28] MEDS: ESCITALOPRAM 10 MG TAB PO SCH (08:46)
[2016-12-28] MEDS: LACTULOSE 30ML CUP PO SCH (08:46)
[2016-12-28] MEDS: FUROSEMIDE 40 MG TAB PO SCH (08:46)
[2016-12-28] MEDS: FLECAINIDE 100 MG TAB PO SCH ×2 (08:47→20:53)
[2016-12-28] MEDS: predniSONE 10 MG TAB PO SCH (08:47)
[2016-12-28] MEDS: GABAPENTIN 300 MG CAP PO SCH ×3 (08:47→20:53)
[2016-12-28] MEDS: POLYETHYLENE GLYCOL 17 GM PACKET PO SCH (08:47)
[2016-12-28] MEDS: LINAGLIPTIN 5 MG TABLET PO SCH (08:48)
[2016-12-28] MEDS: EZETIMIBE 10 MG TAB PO SCH (08:48)
[2016-12-28] MEDS: VORICONAZOLE 200 MG TAB PO SCH ×2 (08:48→20:53)
[2016-12-28] MEDS: ENOXAPARIN 40 MG/0.4 ML SYG SC SCH ×2 (08:55→20:55)
[2016-12-28 09:00] LABS: BASOPHIL # 0.1 10^3/ul (0.0-0.1); BASOPHILS % 0.4 % (0.0-2.0); EOSINOPHILS # 0.2 10^3/ul (0.0-0.5); EOSINOPHILS % 1.4 % (0.0-7.0); HEMATOCRIT 36.7 % (37.0-47.0); HEMOGLOBIN 11.1 g/dl (12.0-16.0); LYMPHOCYTES % 15.5 % (15.0-51.0); MEAN CORPUSCULAR HEMOGLOBIN 30.1 pg (29.0-33.0); MEAN CORPUSCULAR HGB CONC 30.2 g/dl (32.0-37.0); MEAN CORPUSCULAR VOLUME 99.5 fl (82.0-101.0); MEAN PLATELET VOLUME 11.8 fl (7.4-10.4); MONOCYTE # 0.9 10^3/ul (0.3-0.9); MONOCYTES % 6.9 % (0.0-11.0); NEUTROPHIL # 9.6 10^3/ul (1.6-7.5); NEUTROPHILS % 75.1 % (39.0-77.0); PLATELET COUNT 266 10^3/UL (140-415); RED BLOOD COUNT 3.69 10^6/ul (4.20-5.40); RED CELL DISTRIBUTION WIDTH 14.6 % (11.5-14.5); WHITE BLOOD COUNT 12.8 10^3/ul (4.8-10.8)
[2016-12-28 09:23] LABS: CALCIUM 9.4 mg/dl (8.4-10.2); CREATININE 0.87 mg/dl (0.44-1.00); POTASSIUM 4.7 mmol/L (3.5-5.1)
[2016-12-28] MEDS: SOLIFENACIN 5 MG TAB PO SCH (10:17)
[2016-12-28] MEDS: IBUPROFEN 600 MG TAB PO PRN (10:19)
--- NOTE | 2016-12-28 12:49 | RADRPT ---
PROCEDURE: CT Abdomen and Pelvis without contrast. CLINICAL INDICATION: Abdominal pain TECHNIQUE: CT scan of the abdomen and pelvis was performed on a multidetector high-resolution CT s canner without intravenous contrast. Coronal and sagittal reformatted images were obtained from the axial source images. Images were reviewed on a high-resolution PACS workstation. The total exam CTD I equals 24mGy and the total exam DLP equals 1497mGy-cm. One or more of the following dose reduction techniques were used: Automated exposure control, Adjustment of the mA and/or kV according to patie nt size, and/or use of iterative reconstruction technique. DICOM images are available. COMPARISON: Abdominal CT 07/11/2014 FINDINGS: Evaluation of the solid organs is limited given the lack of intravenous contrast administration. The lung bases are clear. The liver, pancreas, spleen, and adrenals are grossly unremarkable. No focal pericholecystic inflammatory changes. No hydronephrosis. No renal or ureteral stone. Bilateral renal cysts. Left abdominal hernia containing portions of the transverse colon with associated inflammatory stran ding. There is interval dilatation of the proximal transverse colon and ascending colon. Appendix no t visualized. No significant retroperitoneal lymphadenopathy, ascites or evidence of pneumoperitoneum. Aortoiliac atherosclerosis. Degenerative changes of the spine. IMPRESSION: Left abdominal hernia containing portions of the transverse colon with associated inflammatory stran ding. There is interval dilatation of the proximal transverse colon and ascending colon when compare d to prior. The findings are concerning for at least partial transverse colonic bowel obstruction wi th strangulated left abdominal hernia. RPTAT: AA .Pb Colunga MD, Date Time Electronically viewed and signed by .Pb Colunga MD, MD on 12/28/2016 12:49 .T/
--- NOTE | 2016-12-28 12:51 | PN ---
Date/Time of Note Date/Time of Note DATE: 12/28/16 TIME: 12:42 Assessment/Plan VTE Prophylaxis VTE Prophylaxis Intervention: ambulation, anti-embolic stocking VTE Contraindication Reason: peripheral vascular disease Lines/Catheters IV Catheter Type (from Nrsg): [place] [employer] line still needed: No Urinary Cath still in place: No Reason Cath still needed: urinary retention Assessment/Plan Assessment/Plan 1. Severe constipation with protrusion of the umbilical hernia. GI consult pending. No surgical repair recommended by Dr. Chao. promised to see andconsults. 2. Bad odor from the urine with recurrent hematuria.- continue Amoxil and Levaquin x 3 more days. 3.Low abdominal pain and llq abd pain 4. Leukocytosis 5. History of having palpitations-now bradycardic; lowest rate 45- now 82bpm. 6. History of having bronchial asthma, now stable. 7. Wound of the postsurgical scar, right-sided abdomen, healed. 8. Status post cholecystectomy. 9. Postmenstrual syndrome. 10. Anxiety. 11. Claustrophobia. 12. Dyslipidemia. 13. Diabetes type 2. 14. History of having carbon dioxide retention. 15. Anemia of chronic disease with recent loss. 16. History of chronic kidney disease, improved. 17. History of having low iron and low magnesium levels. 18. Pain syndrome. 19. Major depression. 20. Altered level of consciousness. 21. Diverticulitis. 22. Left-sided chest pain. 23.carbon dioxide narcosis (Hx of) 24.Trophic changes of both legs with change of a color. 25.Pilling of the skin of nailbeds of both hands with deformities and trace of blood and swelling.26. 26.11 years bedridden 27.Decubitus of the left gluteal area with mild redness of the calcaneal skin 28.Severe deconditioning 29.Daytime sleepiness 30.Severe krupa of knees, hips ans ankle joints 31.Calcaneal pain. 32.Umbilical reducible hernia 4-5cm in diameter.Postsurgical. 33.Chronic norco,percocet, and other controlled substance user. 34.Bradycardia 35.Morbid obesity; Obesity hypopnea syndrome,hypercarbia with Pc02 57 36.Hallucinations, confusion, fear on and off 37.Hypertension, now normotensive. Congestive heart failure exacerbation with pulmonary edema.Improving 38.Low magnesium and low iron levels 39.Fear of . 40.Morbid (severe) obesity due to excess calories (BMI 40 or greater) ( ICD10 E66.01 ) 41.Spinal stenosis with radiculopathy 42.KRUPA of hips and knees 43.Pain in right brerast with mildly tender mass. 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 No vertebral fx. 45.Agarophobia 46.Claustrophobia Cont'd Hospitalization Reason: constipation;Incarcerated hernia of umbilical area. Subjective 24 Hr Interval Summary Free Text/Dictation abdominal cramps on and off. Weakness. Constitutional: diaphoresis, disoriented, No chills, No febrile, No improved, No no complaints, No other, No poor po, No requiring IVF, No requiring O2 Eyes: No discharge, No no complaints, No other, No pain, No redness, No visual change ENT: No bleeding, No congestion, No discharge, No dysphagia, No no complaints, No other, No pain, No sore throat Respiratory: shortness of breath, No cough, No no complaints, No other, No pain, No pleuritic pain, No sputum, No wheezing Cardiovascular: lightheadedness, orthopenea, palpitations, No chest pain, No edema, No no complaints, No other, No paroxysmal nocturnal dyspnea Gastrointestinal: constipation, flatus, nausea, passing stool, No blood, No decreased appetite, No diarrhea, No no complaints, No other, No pain, No vomiting Genitourinary: dysuria Musculoskeletal: back pain, bone/joint pain, neck pain, No no complaints, No other, No restricted range of motion, No swelling Skin: erythema, pruritis, No bruising, No laceration, No no complaints, No other, No rash, No skin lesions Neurologic: confusion, dizziness, headache, No focal-weakness, No no complaints, No other, No seizure, No syncope Psychological: anxiety, confusion, depression, other (forgetfulness with hallucinations.) Exam/Review of Systems Vital Signs Vitals Vital Signs Date Time Temp Pulse Resp B/P Pulse Ox O2 Delivery O2 Flow Rate FiO2 12/28/16 12:13 75 12/28/16 12:02 97.9 18 125/70 93 12/28/16 08:05 Nasal Cannula 2.0 Intake and Output 12/27/16 12/27/1612/28/17 15:00 23:00 07:00 Intake Total 1080 ml Balance 1080 ml Exam Constitutional: alert, frail, obese, oriented, well developed, No distress, No non-verbal, No other Psych: anxiety, depression, No confusion, No nl mood/affect, No no complaints, No other, No suicidal Head: atraumatic, normocephalic, No hematomas, No lacerations, No other Eyes: EOMI, PERRL, nl lids, No fundi, disc, No icteric, No nl conjunctiva, No nl sclera, No other ENMT: nl external ears & nose, nl lips & teeth, No intubated, No mucosa pink and moist, No nl nasal mucosa & septum, No other , No tympanic membranes Neck: bruits, nuchal rigidity, No jvd, No masses, No non-tender, No other, No supple, No thyromegaly Respiratory: clear to auscultation, diminished breath sounds, normal air movement, No congested cough, No crackles/rales, No intercostal retraction, No labored breathing, No other, No respirations, No tactile fremitus, No wheezing Cardiovascular: bruits, edema, jugular venous distention (JVD), systolic murmur , No S3, No S4, No diastolic murmur, No gallop, No irregular rhythm, No murmurs /extra sounds, No nl pulses, No other, No regular rate and rhythm, No rub Gastrointestinal: bowel sounds, distended ( only centrally.), rebound or guarding (periumbilical area.), soft (all around except in periumbilical area which is tender. After pressure and soft manipulation the swelling got less prominent. BS + Mild rebound over the hernia side. 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, numbness Skin: ecchymosis, rash or lesions, No diaphoresis, No laceration, No nl turgor, No other, No puncture Results Result Diagram: 12/28/16 0831 12/28/16 0830 Results 24 hrs Laboratory Tests Test 12/27/16 17:02 12/27/16 21:05 12/27/16 22:00 12/28/16 08:30 Bedside Glucose 113 108 Stool Occult Blood NEGATIVE Sodium Level 139 Potassium Level 4.7 Chloride Level 99 Carbon Dioxide Level 33 H Anion Gap 12 Blood Urea Nitrogen 18 Creatinine 0.87 Glucose Level 102 Calcium Level 9.4 Test 12/28/16 08:31 12/28/16 08:42 12/28/16 11:57 White Blood Count 12.8 H Red Blood Count 3.69 L Hemoglobin 11.1 L Hematocrit 36.7 L Mean Corpuscular Volume 99.5 Mean Corpuscular Hemoglobin 30.1 Mean Corpuscular Hemoglobin Concent 30.2 L Red Cell Distribution Width 14.6 H Platelet Count 266 Mean Platelet Volume 11.8 H Neutrophils % 75.1 Lymphocytes % 15.5 Monocytes % 6.9 Eosinophils % 1.4 Basophils % 0.4 Nucleated Red Blood Cells % 0.0 Neutrophils # 9.6 H Lymphocytes # 2.0 Monocytes # 0.9 Eosinophils # 0.2 Basophils # 0.1 Nucleated Red Blood Cells # 0.0 Bedside Glucose 103 119 Medications Medications Current Medications Ondansetron HCl (Zofran Inj) 4 mg Q6H PRN IV NAUSEA AND/OR VOMITING Last administered on 12/27/16 16:14; Admin Dose 4 MG; Start 12/21/16 at 23:00 Morphine Sulfate (morphine) 2 mg Q4H PRN IV PAIN Last administered on 00:09; Admin Dose 2 MG; Start 12/21/16 at 23:00 Diagnostic Test (Pha) (Accu-Chek) 1 ea 02 XX Last administered on 12/23/16 02: 31; Admin Dose 1 EA; Start 12/22/16 at 02:00 Miscellaneous Information 1 ea NOTE XX ; Start 12/21/16 at 23:00 Glucose (Glutose) 15 gm Q15M PRN PO DECREASED GLUCOSE; Start 12/21/16 at 23:00 Glucose (Glutose) 22.5 gm Q15M PRN PO DECREASED GLUCOSE; Start 12/21/16 at 23: 00 Dextrose (D50w Syringe) 25 ml Q15M PRN IV DECREASED GLUCOSE; Start 12/21/16 at 23:00 Dextrose (D50w Syringe) 50 ml Q15M PRN IV DECREASED GLUCOSE; Start 12/21/16 at 23:00 Glucagon (Glucagen) 1 mg Q15M PRN IM DECREASED GLUCOSE; Start 12/21/16 at 23:00 Glucose (Glutose) 15 gm Q15M PRN BUCCAL DECREASED GLUCOSE; Start 12/21/16 at 23 :00 Aspirin (Halfprin) 81 mg DAILY PO Last administered on 12/28/16 08:46; Admin Dose 81 MG; Start 12/23/16 at 09:00 Bisacodyl (Dulcolax Supp) 10 mg DAILY PRN [place] CONSTIPATION Last administered on 12/25/16 12:41; Admin Dose 10 MG; Start 12/22/16 at 17:00 Clonidine (Catapres) 0.1 mg DAILY PRN PO HTN; Start 12/22/16 at 17:00 Diphenhydramine HCl (Benadryl) 25 mg BID PRN PO ITCHING; Start 12/22/16 at 17: 00 Docusate Sodium (Colace) 200 mg BID PRN PO CONSTIPATION Last administered on 22:48; Admin Dose 200 MG; Start 12/22/16 at 17:00 Escitalopram Oxalate (Lexapro) 10 mg DAILY PO Last administered on 12/28/16 08:46; Admin Dose 10 MG; Start 12/23/16 at 09:00 EZETIMIBE (Zetia) 10 mg DAILY PO Last administered on 12/28/16 08:48; Admin Dose 10 MG; Start 12/23/16 at 09:00 Furosemide (Lasix) 40 mg DAILY PO Last administered on 12/28/16 08:46; Admin Dose 40 MG; Start 12/23/16 at 09:00 Gabapentin (Neurontin) 300 mg TID PO Last administered on 12/28/16 08:47; Admin Dose 300 MG; Start 12/22/16 at 21:00 Linagliptin (Tradjenta) 5 mg DAILY PO Last administered on 12/28/16 08:48; Admin Dose 5 MG; Start 12/23/16 at 09:00 Metformin HCl (Glucophage) 1,000 mg BID PO Last administered on 12/28/16 08: 46; Admin Dose 1,000 MG; Start 12/22/16 at 21:00 Prednisone (Prednisone) 10 mg DAILY PO Last administered on 12/28/16 08:47; Admin Dose 10 MG; Start 12/23/16 at 09:00 Salmeterol Xinafoate/ Fluticasone (Advair 250/50 Diskus) 1 inh BID INH Last administered on 12/28/16 08:45; Admin Dose 1 INH; Start 12/22/16 at 21:00 Solifenacin (Vesicare) 5 mg DAILY PO Last administered on 12/28/16 10:17; Admin Dose 5 MG; Start 12/23/16 at 09:00 Tiotropium [place] (Spiriva) 1 inh DAILY INH Last administered on 12/28/16 08 :45; Admin Dose 1 INH; Start 12/23/16 at 09:00 Voriconazole (Vfend) 200 mg BID PO Last administered on 12/28/16 08:48; Admin Dose 200 MG; Start 12/22/16 at 21:00 Enoxaparin Sodium (Lovenox) 80 mg BID SC Last administered on 12/28/16 08:55 ; Admin Dose 80 MG; Start 12/22/16 at 21:00 Flecainide Acetate (Tambocor) 150 mg BID PO Last administered on 12/28/16 08: 47; Admin Dose 150 MG; Start 12/22/16 at 21:00 Polyethylene Glycol (Miralax) 17 gm BID PO Last administered on 12/28/16 08: 47; Admin Dose 17 GM; Start 12/22/16 at 21:00 Lorazepam (Ativan) 0.5 mg Q4H PRN PO ANXIETY; Start 12/22/16 at 20:30 Acetaminophen/ Hydrocodone Bitart ([place] (10/325)) 1 tab Q6H PRN PO Pain Last administered on 12/28/16 06:45; Admin Dose 1 TAB; Start 12/23/16 at 15:12 Ibuprofen (Motrin) 600 mg Q6H PRN PO PAIN OR TEMP ABOVE 38C Last administered on 12/28/16 10:19; Admin Dose 600 MG; Start 12/23/16 at 14:00 Divalproex Sodium (Depakote) 125 mg TID PO Last administered on 12/28/16 08: 45; Admin Dose 125 MG; Start 12/23/16 at 21:00 Levofloxacin (Levaquin) 500 mg DAILY@06 PO Last administered on 12/28/16 06: 45; Admin Dose 500 MG; Start 12/25/16 at 06:00 Amoxicillin (Amoxicillin) 500 mg Q6 PO Last administered on 12/28/16 06:44; Admin Dose 500 MG; Start 12/25/16 at 19:00 Lactulose (Enulose) 20 gm DAILY PO Last administered on 12/28/16 08:46; Admin Dose 20 GM; Start 12/26/16 at 09:00 STONE HERNANDEZ MD Dec 28, 2016 12:51
--- NOTE | 2016-12-28 13:43 | CONS ---
Date/Time of Note Date/Time of Note DATE: 12/28/16 TIME: 13:39 Consult Date/Type/Reason Admit Date/Time Dec 21, 2016 at 17:19 Initial Consult Date 12/27/16 Type of Consultation: ID Ordering Provider: STONE HERNANDEZ MD Objective Vital Signs Date Time Temp Pulse Resp B/P Pulse Ox O2 Delivery O2 Flow Rate FiO2 12/28/16 12:13 75 12/28/16 12:02 97.9 18 125/70 93 12/28/16 08:05 Nasal Cannula 2.0 Intake and Output 12/27/16 12/27/16 12/28/16 14:59 22:59 06:59 Intake Total 1080 ml Balance 1080 ml Results/Medications Result Diagram: 12/28/16 0831 12/28/16 0830 Results 24 hrs Laboratory Tests Test 12/27/16 17:02 12/27/16 21:05 12/27/16 22:00 12/28/16 08:30 Bedside Glucose 113 108 Stool Occult Blood NEGATIVE Sodium Level 139 Potassium Level 4.7 Chloride Level 99 Carbon Dioxide Level 33 H Anion Gap 12 Blood Urea Nitrogen 18 Creatinine 0.87 Glucose Level 102 Calcium Level 9.4 Test 12/28/16 08:31 12/28/16 08:42 12/28/16 11:57 White Blood Count 12.8 H Red Blood Count 3.69 L Hemoglobin 11.1 L Hematocrit 36.7 L Mean Corpuscular Volume 99.5 Mean Corpuscular Hemoglobin 30.1 Mean Corpuscular Hemoglobin Concent 30.2 L Red Cell Distribution Width 14.6 H Platelet Count 266 Mean Platelet Volume 11.8 H Neutrophils % 75.1 Lymphocytes % 15.5 Monocytes % 6.9 Eosinophils % 1.4 Basophils % 0.4 Nucleated Red Blood Cells % 0.0 Neutrophils # 9.6 H Lymphocytes # 2.0 Monocytes # 0.9 Eosinophils # 0.2 Basophils # 0.1 Nucleated Red Blood Cells # 0.0 Bedside Glucose 103 119 Medications Current Medications Ondansetron HCl (Zofran Inj) 4 mg Q6H PRN IV NAUSEA AND/OR VOMITING Last administered on 12/27/16 16:14; Admin Dose 4 MG; Start 12/21/16 at 23:00 Morphine Sulfate (morphine) 2 mg Q4H PRN IV PAIN Last administered on 00:09; Admin Dose 2 MG; Start 12/21/16 at 23:00 Diagnostic Test (Pha) (Accu-Chek) 1 ea 02 XX Last administered on 12/23/16 02: 31; Admin Dose 1 EA; Start 12/22/16 at 02:00 Miscellaneous Information 1 ea NOTE XX ; Start 12/21/16 at 23:00 Glucose (Glutose) 15 gm Q15M PRN PO DECREASED GLUCOSE; Start 12/21/16 at 23:00 Glucose (Glutose) 22.5 gm Q15M PRN PO DECREASED GLUCOSE; Start 12/21/16 at 23: 00 Dextrose (D50w Syringe) 25 ml Q15M PRN IV DECREASED GLUCOSE; Start 12/21/16 at 23:00 Dextrose (D50w Syringe) 50 ml Q15M PRN IV DECREASED GLUCOSE; Start 12/21/16 at 23:00 Glucagon (Glucagen) 1 mg Q15M PRN IM DECREASED GLUCOSE; Start 12/21/16 at 23:00 Glucose (Glutose) 15 gm Q15M PRN BUCCAL DECREASED GLUCOSE; Start 12/21/16 at 23 :00 Aspirin (Halfprin) 81 mg DAILY PO Last administered on 12/28/16 08:46; Admin Dose 81 MG; Start 12/23/16 at 09:00 Bisacodyl (Dulcolax Supp) 10 mg DAILY PRN [place] CONSTIPATION Last administered on 12/25/16 12:41; Admin Dose 10 MG; Start 12/22/16 at 17:00 Clonidine (Catapres) 0.1 mg DAILY PRN PO HTN; Start 12/22/16 at 17:00 Diphenhydramine HCl (Benadryl) 25 mg BID PRN PO ITCHING; Start 12/22/16 at 17: 00 Docusate Sodium (Colace) 200 mg BID PRN PO CONSTIPATION Last administered on 22:48; Admin Dose 200 MG; Start 12/22/16 at 17:00 Escitalopram Oxalate (Lexapro) 10 mg DAILY PO Last administered on 12/28/16 08:46; Admin Dose 10 MG; Start 12/23/16 at 09:00 EZETIMIBE (Zetia) 10 mg DAILY PO Last administered on 12/28/16 08:48; Admin Dose 10 MG; Start 12/23/16 at 09:00 Furosemide (Lasix) 40 mg DAILY PO Last administered on 12/28/16 08:46; Admin Dose 40 MG; Start 12/23/16 at 09:00 Gabapentin (Neurontin) 300 mg TID PO Last administered on 12/28/16 13:17; Admin Dose 300 MG; Start 12/22/16 at 21:00 Linagliptin (Tradjenta) 5 mg DAILY PO Last administered on 12/28/16 08:48; Admin Dose 5 MG; Start 12/23/16 at 09:00 Metformin HCl (Glucophage) 1,000 mg BID PO Last administered on 12/28/16 08: 46; Admin Dose 1,000 MG; Start 12/22/16 at 21:00 Prednisone (Prednisone) 10 mg DAILY PO Last administered on 12/28/16 08:47; Admin Dose 10 MG; Start 12/23/16 at 09:00 Salmeterol Xinafoate/ Fluticasone (Advair 250/50 Diskus) 1 inh BID INH Last administered on 12/28/16 08:45; Admin Dose 1 INH; Start 12/22/16 at 21:00 Solifenacin (Vesicare) 5 mg DAILY PO Last administered on 12/28/16 10:17; Admin Dose 5 MG; Start 12/23/16 at 09:00 Tiotropium [place] (Spiriva) 1 inh DAILY INH Last administered on 12/28/16 08 :45; Admin Dose 1 INH; Start 12/23/16 at 09:00 Voriconazole (Vfend) 200 mg BID PO Last administered on 12/28/16 08:48; Admin Dose 200 MG; Start 12/22/16 at 21:00 Enoxaparin Sodium (Lovenox) 80 mg BID SC Last administered on 12/28/16 08:55 ; Admin Dose 80 MG; Start 12/22/16 at 21:00 Flecainide Acetate (Tambocor) 150 mg BID PO Last administered on 12/28/16 08: 47; Admin Dose 150 MG; Start 12/22/16 at 21:00 Polyethylene Glycol (Miralax) 17 gm BID PO Last administered on 12/28/16 08: 47; Admin Dose 17 GM; Start 12/22/16 at 21:00 Lorazepam (Ativan) 0.5 mg Q4H PRN PO ANXIETY; Start 12/22/16 at 20:30 Acetaminophen/ Hydrocodone Bitart ([place] (10/325)) 1 tab Q6H PRN PO Pain Last administered on 12/28/16 06:45; Admin Dose 1 TAB; Start 12/23/16 at 15:12 Ibuprofen (Motrin) 600 mg Q6H PRN PO PAIN OR TEMP ABOVE 38C Last administered on 12/28/16 10:19; Admin Dose 600 MG; Start 12/23/16 at 14:00 Divalproex Sodium (Depakote) 125 mg TID PO Last administered on 12/28/16 13: 16; Admin Dose 125 MG; Start 12/23/16 at 21:00 Levofloxacin (Levaquin) 500 mg DAILY@06 PO Last administered on 12/28/16 06: 45; Admin Dose 500 MG; Start 12/25/16 at 06:00 Amoxicillin (Amoxicillin) 500 mg Q6 PO Last administered on 12/28/16 13:16; Admin Dose 500 MG; Start 12/25/16 at 19:00 Lactulose (Enulose) 20 gm DAILY PO Last administered on 12/28/16 08:46; Admin Dose 20 GM; Start 12/26/16 at 09:00 Assessment/Plan Chief Complaint/Hosp Course SUBJECTIVE: Alert, c/o not being able to have BM, looks comfortable, no fevers MICROBIOLOGY: Urine culture on 12/22/2016 grew enterococcus species only 10 to 20,000 colonies. ANTIMICROBIALS: Amoxicillin and Levaquin. DIAGNOSTICS: Chest x-ray on 12/25/2016 revealed cardiomegaly with pulmonary edema, questionable superimposed infiltrates greater. CT abdomen revealed Left abdominal hernia containing portions of the transverse colon with associated inflammatory stranding. There is interval dilatation of the proximal transverse colon and ascending colon when compared to prior. The findings are concerning for at least partial transverse colonic bowel obstruction with strangulated left abdominal hernia. PHYSICAL EXAMINATION: GENERAL: This is a morbidly obese, well-developed, elderly [place] woman who is in no distress. HEENT: Head atraumatic, normocephalic. Sclerae anicteric. Buccal mucosa dry. NECK: Supple. CHEST: Rise symmetrical. Breath sounds diminished to bases. HEART: S1, S2. ABDOMEN: Distended, soft, with evidence of the abdomen obese with bowel tones hypoactive. EXTREMITIES: With edema. ASSESSMENT: 1. Pneumonia. 2. Mild enterococcal urinary tract infection. 3. Morbid obesity. 4. Diabetes. 5. Coronary artery disease. 6. Chronic incarcerated ventral hernia, surgery on case, no recommendations for surgical repair at this time. PLAN: The patient remains stable, continue present care, antibiotics. F/u surgical rec-s Problems: EMA [place] NP Dec 28, 2016 13:43
--- NOTE | 2016-12-28 16:57 | RADRPT ---
AMENDMENT: 12/28/2016 4:58:04 PM Brian Roque M.d CLINICAL INDICATION: Abdominal pain. Incarcerated hernia. PROCEDURE: XR Abdomen. CLINICAL INDICATION: Abdominal pain. Impression hernia. TECHNIQUE: AP abdomen x-ray. COMPARISON: CT 12/28/2016 and radiograph 12/25/2016 FINDINGS: Multiple dilated loops of small bowel and colon. This was much better visualized on recent CT scan. IMPRESSION: Multiple dilated loops of small bowel and colon consistent with colon obstruction seen on recent CT. RPTAT:AAJJ Physician Yohana Date Time Electronically viewed and signed by Physician Yohana on 12/28/2016 16:58 /
--- NOTE | 2016-12-28 17:00 | CONS ---
Date/Time of Note Date/Time of Note DATE: 12/28/16 TIME: 16:58 Assessment/Plan Assessment/Plan Chief Complaint/Hosp Course Acute on chronic diastolic heart failure: EF preserved. Mild CHF but close to euvolemic. UTI Constipation with chronic incarcerated ventral hernia: treated medically for now H/o unknown cardiac arrhythmia: On flecainide chronically. DM HTN Bedbound state -ASA -lasix 40mg PO daily -flecainide -antibiotics per PMD -f/u GI and surgical recs Problems: Consultation Date/Type/Reason Admit Date/Time Dec 21, 2016 at 17:19 Initial Consult Date 12/27/16 Type of Consultation: Cardiology Referring Provider: STONE HERNANDEZ MD 24 HR Interval Summary Free Text/Dictation No o/n events. CT shows possible obstruction and hernia strangulation. No chest pain or SOB. Has abdominal pain still. Exam/Review of Systems Vital Signs Vitals Vital Signs Date Time Temp Pulse Resp B/P Pulse Ox O2 Delivery O2 Flow Rate FiO2 12/28/16 16:19 2.0 12/28/16 16:18 68 18 96 Nasal Cannula 12/28/16 15:27 97.8 125/57 Intake and Output 12/27/16 12/27/16 12/28/16 15:00 23:00 07:00 Intake Total 1080 ml Balance 1080 ml Exam Constitutional: alert, oriented Psych: No nl mood/affect Head: atraumatic, normocephalic Neck: No jvd (difficult to examine ) Respiratory: diminished breath sounds, No clear to auscultation, No crackles/rales Cardiovascular: regular rate and rhythm, systolic murmur (2/6 [place]), No edema Gastrointestinal: non-tender (mild diffuse ), No soft (ventral hernia indurated ) Neurological: nl mental status, nl speech Results Result Diagram: 12/28/16 0831 12/28/16 0830 Results 24 hrs Laboratory Tests Test 12/27/16 17:02 12/27/16 21:05 12/27/16 22:00 12/28/16 08:30 Bedside Glucose 113 108 Stool Occult Blood NEGATIVE Sodium Level 139 Potassium Level 4.7 Chloride Level 99 Carbon Dioxide Level 33 H Anion Gap 12 Blood Urea Nitrogen 18 Creatinine 0.87 Glucose Level 102 Calcium Level 9.4 Test 12/28/16 08:31 12/28/16 08:42 12/28/16 11:57 White Blood Count 12.8 H Red Blood Count 3.69 L Hemoglobin 11.1 L Hematocrit 36.7 L Mean Corpuscular Volume 99.5 Mean Corpuscular Hemoglobin 30.1 Mean Corpuscular Hemoglobin Concent 30.2 L Red Cell Distribution Width 14.6 H Platelet Count 266 Mean Platelet Volume 11.8 H Neutrophils % 75.1 Lymphocytes % 15.5 Monocytes % 6.9 Eosinophils % 1.4 Basophils % 0.4 Nucleated Red Blood Cells % 0.0 Neutrophils # 9.6 H Lymphocytes # 2.0 Monocytes # 0.9 Eosinophils # 0.2 Basophils # 0.1 Nucleated Red Blood Cells # 0.0 Bedside Glucose 103 119 Medications Medications Current Medications Ondansetron HCl (Zofran Inj) 4 mg Q6H PRN IV NAUSEA AND/OR VOMITING Last administered on 12/27/16 16:14; Admin Dose 4 MG; Start 12/21/16 at 23:00 Morphine Sulfate (morphine) 2 mg Q4H PRN IV PAIN Last administered on 00:09; Admin Dose 2 MG; Start 12/21/16 at 23:00 Diagnostic Test (Pha) (Accu-Chek) 1 ea 02 XX Last administered on 12/23/16 02: 31; Admin Dose 1 EA; Start 12/22/16 at 02:00 Miscellaneous Information 1 ea NOTE XX ; Start 12/21/16 at 23:00 Glucose (Glutose) 15 gm Q15M PRN PO DECREASED GLUCOSE; Start 12/21/16 at 23:00 Glucose (Glutose) 22.5 gm Q15M PRN PO DECREASED GLUCOSE; Start 12/21/16 at 23: 00 Dextrose (D50w Syringe) 25 ml Q15M PRN IV DECREASED GLUCOSE; Start 12/21/16 at 23:00 Dextrose (D50w Syringe) 50 ml Q15M PRN IV DECREASED GLUCOSE; Start 12/21/16 at 23:00 Glucagon (Glucagen) 1 mg Q15M PRN IM DECREASED GLUCOSE; Start 12/21/16 at 23:00 Glucose (Glutose) 15 gm Q15M PRN BUCCAL DECREASED GLUCOSE; Start 12/21/16 at 23 :00 Aspirin (Halfprin) 81 mg DAILY PO Last administered on 12/28/16 08:46; Admin Dose 81 MG; Start 12/23/16 at 09:00 Bisacodyl (Dulcolax Supp) 10 mg DAILY PRN [place] CONSTIPATION Last administered on 12/25/16 12:41; Admin Dose 10 MG; Start 12/22/16 at 17:00 Clonidine (Catapres) 0.1 mg DAILY PRN PO HTN; Start 12/22/16 at 17:00 Diphenhydramine HCl (Benadryl) 25 mg BID PRN PO ITCHING; Start 12/22/16 at 17: 00 Docusate Sodium (Colace) 200 mg BID PRN PO CONSTIPATION Last administered on 22:48; Admin Dose 200 MG; Start 12/22/16 at 17:00 Escitalopram Oxalate (Lexapro) 10 mg DAILY PO Last administered on 12/28/16 08:46; Admin Dose 10 MG; Start 12/23/16 at 09:00 EZETIMIBE (Zetia) 10 mg DAILY PO Last administered on 12/28/16 08:48; Admin Dose 10 MG; Start 12/23/16 at 09:00 Furosemide (Lasix) 40 mg DAILY PO Last administered on 12/28/16 08:46; Admin Dose 40 MG; Start 12/23/16 at 09:00 Gabapentin (Neurontin) 300 mg TID PO Last administered on 12/28/16 13:17; Admin Dose 300 MG; Start 12/22/16 at 21:00 Linagliptin (Tradjenta) 5 mg DAILY PO Last administered on 12/28/16 08:48; Admin Dose 5 MG; Start 12/23/16 at 09:00 Metformin HCl (Glucophage) 1,000 mg BID PO Last administered on 12/28/16 08: 46; Admin Dose 1,000 MG; Start 12/22/16 at 21:00 Prednisone (Prednisone) 10 mg DAILY PO Last administered on 12/28/16 08:47; Admin Dose 10 MG; Start 12/23/16 at 09:00 Salmeterol Xinafoate/ Fluticasone (Advair 250/50 Diskus) 1 inh BID INH Last administered on 12/28/16 08:45; Admin Dose 1 INH; Start 12/22/16 at 21:00 Solifenacin (Vesicare) 5 mg DAILY PO Last administered on 12/28/16 10:17; Admin Dose 5 MG; Start 12/23/16 at 09:00 Tiotropium [place] (Spiriva) 1 inh DAILY INH Last administered on 12/28/16 08 :45; Admin Dose 1 INH; Start 12/23/16 at 09:00 Voriconazole (Vfend) 200 mg BID PO Last administered on 12/28/16 08:48; Admin Dose 200 MG; Start 12/22/16 at 21:00 Enoxaparin Sodium (Lovenox) 80 mg BID SC Last administered on 12/28/16 08:55 ; Admin Dose 80 MG; Start 12/22/16 at 21:00 Flecainide Acetate (Tambocor) 150 mg BID PO Last administered on 12/28/16 08: 47; Admin Dose 150 MG; Start 12/22/16 at 21:00 Polyethylene Glycol (Miralax) 17 gm BID PO Last administered on 12/28/16 08: 47; Admin Dose 17 GM; Start 12/22/16 at 21:00 Lorazepam (Ativan) 0.5 mg Q4H PRN PO ANXIETY; Start 12/22/16 at 20:30 Acetaminophen/ Hydrocodone Bitart ([place] (10/325)) 1 tab Q6H PRN PO Pain Last administered on 12/28/16 15:39; Admin Dose 1 TAB; Start 12/23/16 at 15:12 Ibuprofen (Motrin) 600 mg Q6H PRN PO PAIN OR TEMP ABOVE 38C Last administered on 12/28/16 10:19; Admin Dose 600 MG; Start 12/23/16 at 14:00 Divalproex Sodium (Depakote) 125 mg TID PO Last administered on 12/28/16 13: 16; Admin Dose 125 MG; Start 12/23/16 at 21:00 Levofloxacin (Levaquin) 500 mg DAILY@06 PO Last administered on 12/28/16 06: 45; Admin Dose 500 MG; Start 12/25/16 at 06:00 Amoxicillin (Amoxicillin) 500 mg Q6 PO Last administered on 12/28/16 13:16; Admin Dose 500 MG; Start 12/25/16 at 19:00 Lactulose (Enulose) 20 gm DAILY PO Last administered on 12/28/16 08:46; Admin Dose 20 GM; Start 12/26/16 at 09:00 KEVIN CHOU Dec 28, 2016 17:00
--- NOTE | 2016-12-28 17:45 | CONS ---
Date/Time of Note Date/Time of Note DATE: 12/28/16 TIME: 17:44 Assessment/Plan Assessment/Plan Chief Complaint/Hosp Course 1. Anemia, complex, multifactorial with component ACD -obs NO NEEDS FOR TRANSFUSION AT PRESENT LEUKOCYTOSIS- REACTIVE MONITOR CLOSELY ATB- PER ID 2. Chronic incarcerated ventral hernia. No surgery to repair at this time since recurrence is very high with her super morbid obesity. Chronic constipation -weight loss -gi F-UP -sbft vs ct with oral contrast -bowel regimen 3. PNA -pulmonary toilette -abx -weight loss 4. Possible panniculitis improved -weight loss -abx prn 5. CHF -gentle diuresis -judicious fluid management 5. Renal insufficiency -judicious fluid management -avoid nephrotoxic agents 6. DM -diet/med control -weight loss 7. HTN -diet/med control -encourage weight loss 8. Super morbid obesity, bmi 62 -encourage diet optimization -encourage exercise -?surgical weight loss 9. Ischemic cardiac disease -card optimization 10. GERD -ppi -weight loss 11. Snoring, possible sleep apnea -weight loss -cpap Problems: Consultation Date/Type/Reason Admit Date/Time Dec 21, 2016 at 17:19 Initial Consult Date 12/26/16 Type of Consultation: HEMEON Referring Provider: STONE HERNANDEZ MD 24 HR Interval Summary Free Text/Dictation ALL NOTED NO BLEEDING NO HEMOLYSIS Exam/Review of Systems Vital Signs Vitals Vital Signs Date Time Temp Pulse Resp B/P Pulse Ox O2 Delivery O2 Flow Rate FiO2 12/28/16 16:19 2.0 12/28/16 16:18 68 18 96 Nasal Cannula 12/28/16 15:27 97.8 125/57 Intake and Output 12/27/16 12/27/16 12/28/16 15:00 23:00 07:00 Intake Total 1080 ml Balance 1080 ml Exam Constitutional: alert, oriented Psych: No nl mood/affect Head: atraumatic, normocephalic Neck: No jvd (difficult to examine ) Respiratory: diminished breath sounds, No clear to auscultation, No crackles/rales Cardiovascular: regular rate and rhythm, systolic murmur (2/6 [place]), No edema Gastrointestinal: non-tender (mild diffuse ), No soft (ventral hernia indurated ) Neurological: nl mental status, nl speech Results Result Diagram: 12/28/16 0831 12/28/16 0830 Results 24 hrs Laboratory Tests Test 12/27/16 21:05 12/27/16 22:00 12/28/16 08:30 12/28/16 08:31 Bedside Glucose 108 Stool Occult Blood NEGATIVE Sodium Level 139 Potassium Level 4.7 Chloride Level 99 Carbon Dioxide Level 33 H Anion Gap 12 Blood Urea Nitrogen 18 Creatinine 0.87 Glucose Level 102 Calcium Level 9.4 White Blood Count 12.8 H Red Blood Count 3.69 L Hemoglobin 11.1 L Hematocrit 36.7 L Mean Corpuscular Volume 99.5 Mean Corpuscular Hemoglobin 30.1 Mean Corpuscular Hemoglobin Concent 30.2 L Red Cell Distribution Width 14.6 H Platelet Count 266 Mean Platelet Volume 11.8 H Neutrophils % 75.1 Lymphocytes % 15.5 Monocytes % 6.9 Eosinophils % 1.4 Basophils % 0.4 Nucleated Red Blood Cells % 0.0 Neutrophils # 9.6 H Lymphocytes # 2.0 Monocytes # 0.9 Eosinophils # 0.2 Basophils # 0.1 Nucleated Red Blood Cells # 0.0 Test 12/28/16 08:42 12/28/16 11:57 12/28/16 17:33 Bedside Glucose 103 119 108 Medications Medications Current Medications Ondansetron HCl (Zofran Inj) 4 mg Q6H PRN IV NAUSEA AND/OR VOMITING Last administered on 12/27/16 16:14; Admin Dose 4 MG; Start 12/21/16 at 23:00 Morphine Sulfate (morphine) 2 mg Q4H PRN IV PAIN Last administered on 00:09; Admin Dose 2 MG; Start 12/21/16 at 23:00 Diagnostic Test (Pha) (Accu-Chek) 1 ea 02 XX Last administered on 12/23/16 02: 31; Admin Dose 1 EA; Start 12/22/16 at 02:00 Miscellaneous Information 1 ea NOTE XX ; Start 12/21/16 at 23:00 Glucose (Glutose) 15 gm Q15M PRN PO DECREASED GLUCOSE; Start 12/21/16 at 23:00 Glucose (Glutose) 22.5 gm Q15M PRN PO DECREASED GLUCOSE; Start 12/21/16 at 23: 00 Dextrose (D50w Syringe) 25 ml Q15M PRN IV DECREASED GLUCOSE; Start 12/21/16 at 23:00 Dextrose (D50w Syringe) 50 ml Q15M PRN IV DECREASED GLUCOSE; Start 12/21/16 at 23:00 Glucagon (Glucagen) 1 mg Q15M PRN IM DECREASED GLUCOSE; Start 12/21/16 at 23:00 Glucose (Glutose) 15 gm Q15M PRN BUCCAL DECREASED GLUCOSE; Start 12/21/16 at 23 :00 Aspirin (Halfprin) 81 mg DAILY PO Last administered on 12/28/16 08:46; Admin Dose 81 MG; Start 12/23/16 at 09:00 Bisacodyl (Dulcolax Supp) 10 mg DAILY PRN [place] CONSTIPATION Last administered on 12/25/16 12:41; Admin Dose 10 MG; Start 12/22/16 at 17:00 Clonidine (Catapres) 0.1 mg DAILY PRN PO HTN; Start 12/22/16 at 17:00 Diphenhydramine HCl (Benadryl) 25 mg BID PRN PO ITCHING; Start 12/22/16 at 17: 00 Docusate Sodium (Colace) 200 mg BID PRN PO CONSTIPATION Last administered on 22:48; Admin Dose 200 MG; Start 12/22/16 at 17:00 Escitalopram Oxalate (Lexapro) 10 mg DAILY PO Last administered on 12/28/16 08:46; Admin Dose 10 MG; Start 12/23/16 at 09:00 EZETIMIBE (Zetia) 10 mg DAILY PO Last administered on 12/28/16 08:48; Admin Dose 10 MG; Start 12/23/16 at 09:00 Furosemide (Lasix) 40 mg DAILY PO Last administered on 12/28/16 08:46; Admin Dose 40 MG; Start 12/23/16 at 09:00 Gabapentin (Neurontin) 300 mg TID PO Last administered on 12/28/16 13:17; Admin Dose 300 MG; Start 12/22/16 at 21:00 Linagliptin (Tradjenta) 5 mg DAILY PO Last administered on 12/28/16 08:48; Admin Dose 5 MG; Start 12/23/16 at 09:00 Metformin HCl (Glucophage) 1,000 mg BID PO Last administered on 12/28/16 08: 46; Admin Dose 1,000 MG; Start 12/22/16 at 21:00 Prednisone (Prednisone) 10 mg DAILY PO Last administered on 12/28/16 08:47; Admin Dose 10 MG; Start 12/23/16 at 09:00 Salmeterol Xinafoate/ Fluticasone (Advair 250/50 Diskus) 1 inh BID INH Last administered on 12/28/16 08:45; Admin Dose 1 INH; Start 12/22/16 at 21:00 Solifenacin (Vesicare) 5 mg DAILY PO Last administered on 12/28/16 10:17; Admin Dose 5 MG; Start 12/23/16 at 09:00 Tiotropium [place] (Spiriva) 1 inh DAILY INH Last administered on 12/28/16 08 :45; Admin Dose 1 INH; Start 12/23/16 at 09:00 Voriconazole (Vfend) 200 mg BID PO Last administered on 12/28/16 08:48; Admin Dose 200 MG; Start 12/22/16 at 21:00 Enoxaparin Sodium (Lovenox) 80 mg BID SC Last administered on 12/28/16 08:55 ; Admin Dose 80 MG; Start 12/22/16 at 21:00 Flecainide Acetate (Tambocor) 150 mg BID PO Last administered on 12/28/16 08: 47; Admin Dose 150 MG; Start 12/22/16 at 21:00 Polyethylene Glycol (Miralax) 17 gm BID PO Last administered on 12/28/16 08: 47; Admin Dose 17 GM; Start 12/22/16 at 21:00 Lorazepam (Ativan) 0.5 mg Q4H PRN PO ANXIETY; Start 12/22/16 at 20:30 Acetaminophen/ Hydrocodone Bitart ([place] (10/325)) 1 tab Q6H PRN PO Pain Last administered on 12/28/16 15:39; Admin Dose 1 TAB; Start 12/23/16 at 15:12 Ibuprofen (Motrin) 600 mg Q6H PRN PO PAIN OR TEMP ABOVE 38C Last administered on 12/28/16 10:19; Admin Dose 600 MG; Start 12/23/16 at 14:00 Divalproex Sodium (Depakote) 125 mg TID PO Last administered on 12/28/16 13: 16; Admin Dose 125 MG; Start 12/23/16 at 21:00 Levofloxacin (Levaquin) 500 mg DAILY@06 PO Last administered on 12/28/16 06: 45; Admin Dose 500 MG; Start 12/25/16 at 06:00 Amoxicillin (Amoxicillin) 500 mg Q6 PO Last administered on 12/28/16 17:34; Admin Dose 500 MG; Start 12/25/16 at 19:00 Lactulose (Enulose) 20 gm DAILY PO Last administered on 12/28/16 08:46; Admin Dose 20 GM; Start 12/26/16 at 09:00 JORGE PEREZ MD Dec 28, 2016 17:45
[2016-12-28 18:22] LABS: HOMOCYSTEINE - CARDIOVASCULAR 29.6 umol/L (<10.4)
--- NOTE | 2016-12-28 18:32 | PN ---
Date/Time of Note Date/Time of Note DATE: 12/28/16 TIME: 18:25 Assessment/Plan Lines/Catheters IV Catheter Type (from [facility]): Saline Lock Mascorro in Place (from [facility]): No Assessment/Plan Chief Complaint/Hosp Course 1. Chronic incarcerated ventral hernia. No surgery to repair at this time since recurrence is very high with her super morbid obesity. Chronic constipation; CT noted -weight loss -gi eval -bowel regimen -surgical hernia repair 2. PNA -pulmonary toilette -abx -weight loss 3. Possible panniculitis improved -weight loss -abx prn 4. CHF -gentle diuresis -judicious fluid management 5. Renal insufficiency -judicious fluid management -avoid nephrotoxic agents 6. Anemia -obs 7. DM -diet/med control -weight loss 8. HTN -diet/med control -encourage weight loss 9. Super morbid obesity, bmi 62 -encourage diet optimization -encourage exercise -?surgical weight loss 10. Ischemic cardiac disease -card optimization 11. GERD -ppi -weight loss 12. Snoring, possible sleep apnea -weight loss -cpap Thank you. Patient seen and examined in collaboration with Dr. Jaret Clayton. Problems: Subjective 24 Hr Interval Summary Passing gas. CT noted. Will need OR. No fevers, chills, sob, congested cough, cp , palpitations, marie, dizziness, n/v/d/dysuria. Exam/Review of Systems Vital Signs Vitals Vital Signs Date Time Temp Pulse Resp B/P Pulse Ox O2 Delivery O2 Flow Rate FiO2 12/28/16 16:19 2.0 12/28/16 16:18 68 18 96 Nasal Cannula 12/28/16 15:27 97.8 125/57 Intake and Output 12/27/16 12/27/16 12/28/16 14:59 22:59 06:59 Intake Total 1080 ml Balance 1080 ml Exam Free Text/Dictation Constitutional: alert, oriented, super obese, No distress Psych: nl mood/affect, No anxiety Head: normocephalic, atraumatic Eyes: EOMI, PERRL, No icteric ENMT: nl external ears & nose, mucosa pink and moist Neck: supple, non-tender Respiratory: diminished breath sounds, No normal air movement, No congested cough, No intercostal retraction, No labored breathing Cardiovascular: regular rate and rhythm, No edema Gastrointestinal: soft, non-tender, other (Incarcerated ventral hernia-no discoloration), No rebound or guarding Musculoskeletal: No nl extremities to inspection, No nl gait and stance, No joint tenderness Extremities: No calf tenderness, No cyanosis Neurological: nl mental status, nl speech Skin: No diaphoresis Lymph: nl lymph nodes Results Result Diagram: 12/28/16 0831 12/28/16 0830 JESSIKA OH NP Dec 28, 2016 18:32
--- NOTE | 2016-12-28 19:13 | CONS ---
DATE OF ADMISSION: 12/21/2016 DATE OF CONSULTATION: TYPE OF CONSULTATION: Gastroenterology. Dear Dr. Ruiz: Thank you for asking me to see Mrs. Willis in GI consultation. HISTORY OF PRESENT ILLNESS: As you know, the patient is a 76-year-old white female who is admitted to the hospital for multiple medical problems including the history that she has not had any bowel m ovement for 11 days, and that is why I am consulted at this time. No history of nausea, no vomiting . She has been passing very little gas. She had a cholecystectomy in the past. She has got hernia also which is a ventral hernia noted, but anywhere from the review of systems 10 points, she has not had a bowel movement for the past 10 day s, 11 days. No vomiting as well. REVIEW OF SYSTEM: Positive for arteriosclerotic heart disease with history of congestive heart fail ure in the past, history of urosepsis, history of arrhythmias including bradycardia, history of dysl ipidemia, diabetes, anemia, obesity, chronic kidney disease and pain syndrome, depression. Please r efer to the history and physical, very confused, 39 different conditions that she has. PAST MEDICAL HISTORY: Cholecystectomy. PHYSICAL EXAMINATION: GENERAL: The patient is a 76-year-old [place] female who at this time she is obese, alert. VITAL SIGNS: Temperature is 97.8, pulse is 74, blood pressure is 125/57. CARDIOVASCULAR: Normal heart sounds. RESPIRATORY: Normal breath sounds. ABDOMEN: Showed obese abdomen. Surgical scar noted in the abdomen in the mid abdomen. There is a large ventral hernia which is mildly tender, a little ecchymotic changes noted in the skin, but not very tender. LABORATORY WORKUP: WBC count is 12,800, hemoglobin is 11.1, platelet count 266,000. The chemistry shows that BUN is 12, creatinine is 18. Potassium is 4.7. From the liver panel standpoint, bilirubin is 0.0, AST 53, ALT 34, alkaline phosphatase is 115, LDH is 570. KUB shows evidence of multiple dilated loops of small bowel and colon consistent with colonic obstru ction seen on the CAT scan. CAT scan of the abdomen shows evidence of a left abdominal hernia containing portions of the transve rse colon with associated inflammatory stranding. There is dilatation of the proximal transverse co kathleen and descending colon consistent with partial transverse colonic bowel obstruction. CLINICAL IMPRESSION: As noted on the CAT scan of the abdomen, she has abdominal distention and colo gagandeep dilatation, probably representing a colonic obstruction, and she has a ventral hernia probably c ontaining transverse colon. The other medical problems essentially as mentioned above, history of anemia, hypertension, diabetes , obesity, COPD. PLAN: I would recommend to keep the patient n.p.o. If patient starts vomiting, she has to have an NG tube for suction. Apparently, the patient also has been seen by Dr. Clayton for surgical managem ent. Once again, Dr. Ruiz, thank you for this consultation. Dictated By: VALENTE SHAH/JESUS Conf#: [id number] DID#: [id number] CC: STONE RUIZ MD;*EndCC*
--- NOTE | 2016-12-28 20:02 | CONS ---
Date/Time of Note Date/Time of Note DATE: 12/28/16 TIME: 20:01 Assessment/Plan Assessment/Plan Chief Complaint/Hosp Course 76 F wtih pMHx of HTN, COPD, CHF, DM II, Morbid obesity who is admitted for CHF Exacebration, and renal has been consulted for electrolyte imbalance and Fluid management. Problems: Additional Assessment/Plan 1. Acute CHF Exacerbation, acute on chronic, systolic and diastolic 2. Hypomagnesemia 3. Acute pulmonary edema due to acute CHF exaceration 4. HTN 5. COPD 6. Possible Pneumonia Plan: On PO Lasix 40mg po daily + amoxicillin, and levaquin PO abx Cr and electrolytes stable today neurology following continue other med, avoid nephrotoxic medications will follow up Consultation Date/Type/Reason Admit Date/Time Dec 21, 2016 at 17:19 Initial Consult Date 12/23/16 Type of Consultation: NEPHROLOGY Referring Provider: STONE HERNANDEZ MD Exam/Review of Systems Vital Signs Vitals Vital Signs Date Time Temp Pulse Resp B/P Pulse Ox O2 Delivery O2 Flow Rate FiO2 12/28/16 16:19 2.0 12/28/16 16:18 68 18 96 Nasal Cannula 12/28/16 15:27 97.8 125/57 Intake and Output 12/27/16 12/27/16 12/28/16 14:59 22:59 06:59 Intake Total 1080 ml Balance 1080 ml Exam Constitutional: alert Psych: no complaints ENMT: nl external ears & nose Neck: non-tender, supple Respiratory: crackles/rales, diminished breath sounds Cardiovascular: nl pulses, regular rate and rhythm Gastrointestinal: non-tender, soft Musculoskeletal: muscle weakness, range of motion, swelling Results Result Diagram: 12/28/16 0831 12/28/16 0830 Results 24 hrs Laboratory Tests Test 12/27/16 21:05 12/27/16 22:00 12/28/16 08:30 12/28/16 08:31 Bedside Glucose 108 Stool Occult Blood NEGATIVE Sodium Level 139 Potassium Level 4.7 Chloride Level 99 Carbon Dioxide Level 33 H Anion Gap 12 Blood Urea Nitrogen 18 Creatinine 0.87 Glucose Level 102 Calcium Level 9.4 White Blood Count 12.8 H Red Blood Count 3.69 L Hemoglobin 11.1 L Hematocrit 36.7 L Mean Corpuscular Volume 99.5 Mean Corpuscular Hemoglobin 30.1 Mean Corpuscular Hemoglobin Concent 30.2 L Red Cell Distribution Width 14.6 H Platelet Count 266 Mean Platelet Volume 11.8 H Neutrophils % 75.1 Lymphocytes % 15.5 Monocytes % 6.9 Eosinophils % 1.4 Basophils % 0.4 Nucleated Red Blood Cells % 0.0 Neutrophils # 9.6 H Lymphocytes # 2.0 Monocytes # 0.9 Eosinophils # 0.2 Basophils # 0.1 Nucleated Red Blood Cells # 0.0 Test 12/28/16 08:42 12/28/16 11:57 12/28/16 17:33 Bedside Glucose 103 119 108 Medications Medications Current Medications Ondansetron HCl (Zofran Inj) 4 mg Q6H PRN IV NAUSEA AND/OR VOMITING Last administered on 12/27/16 16:14; Admin Dose 4 MG; Start 12/21/16 at 23:00 Morphine Sulfate (morphine) 2 mg Q4H PRN IV PAIN Last administered on 00:09; Admin Dose 2 MG; Start 12/21/16 at 23:00 Diagnostic Test (Pha) (Accu-Chek) 1 ea 02 XX Last administered on 12/23/16 02: 31; Admin Dose 1 EA; Start 12/22/16 at 02:00 Miscellaneous Information 1 ea NOTE XX ; Start 12/21/16 at 23:00 Glucose (Glutose) 15 gm Q15M PRN PO DECREASED GLUCOSE; Start 12/21/16 at 23:00 Glucose (Glutose) 22.5 gm Q15M PRN PO DECREASED GLUCOSE; Start 12/21/16 at 23: 00 Dextrose (D50w Syringe) 25 ml Q15M PRN IV DECREASED GLUCOSE; Start 12/21/16 at 23:00 Dextrose (D50w Syringe) 50 ml Q15M PRN IV DECREASED GLUCOSE; Start 12/21/16 at 23:00 Glucagon (Glucagen) 1 mg Q15M PRN IM DECREASED GLUCOSE; Start 12/21/16 at 23:00 Glucose (Glutose) 15 gm Q15M PRN BUCCAL DECREASED GLUCOSE; Start 12/21/16 at 23 :00 Aspirin (Halfprin) 81 mg DAILY PO Last administered on 12/28/16 08:46; Admin Dose 81 MG; Start 12/23/16 at 09:00; Status Future Hold Bisacodyl (Dulcolax Supp) 10 mg DAILY PRN SC CONSTIPATION Last administered on 12/25/16 12:41; Admin Dose 10 MG; Start 12/22/16 at 17:00 Clonidine (Catapres) 0.1 mg DAILY PRN PO HTN; Start 12/22/16 at 17:00 Diphenhydramine HCl (Benadryl) 25 mg BID PRN PO ITCHING; Start 12/22/16 at 17: 00 Docusate Sodium (Colace) 200 mg BID PRN PO CONSTIPATION Last administered on 22:48; Admin Dose 200 MG; Start 12/22/16 at 17:00 Escitalopram Oxalate (Lexapro) 10 mg DAILY PO Last administered on 12/28/16 08:46; Admin Dose 10 MG; Start 12/23/16 at 09:00 EZETIMIBE (Zetia) 10 mg DAILY PO Last administered on 12/28/16 08:48; Admin Dose 10 MG; Start 12/23/16 at 09:00 Furosemide (Lasix) 40 mg DAILY PO Last administered on 12/28/16 08:46; Admin Dose 40 MG; Start 12/23/16 at 09:00 Gabapentin (Neurontin) 300 mg TID PO Last administered on 12/28/16 13:17; Admin Dose 300 MG; Start 12/22/16 at 21:00 Linagliptin (Tradjenta) 5 mg DAILY PO Last administered on 12/28/16 08:48; Admin Dose 5 MG; Start 12/23/16 at 09:00 Metformin HCl (Glucophage) 1,000 mg BID PO Last administered on 12/28/16 08: 46; Admin Dose 1,000 MG; Start 12/22/16 at 21:00 Prednisone (Prednisone) 10 mg DAILY PO Last administered on 12/28/16 08:47; Admin Dose 10 MG; Start 12/23/16 at 09:00 Salmeterol Xinafoate/ Fluticasone (Advair 250/50 Diskus) 1 inh BID INH Last administered on 12/28/16 08:45; Admin Dose 1 INH; Start 12/22/16 at 21:00 Solifenacin (Vesicare) 5 mg DAILY PO Last administered on 12/28/16 10:17; Admin Dose 5 MG; Start 12/23/16 at 09:00 Tiotropium [place] (Spiriva) 1 inh DAILY INH Last administered on 12/28/16 08 :45; Admin Dose 1 INH; Start 12/23/16 at 09:00 Voriconazole (Vfend) 200 mg BID PO Last administered on 12/28/16 08:48; Admin Dose 200 MG; Start 12/22/16 at 21:00 Enoxaparin Sodium (Lovenox) 80 mg BID SC Last administered on 12/28/16 08:55 ; Admin Dose 80 MG; Start 12/22/16 at 21:00 Flecainide Acetate (Tambocor) 150 mg BID PO Last administered on 12/28/16 08: 47; Admin Dose 150 MG; Start 12/22/16 at 21:00 Polyethylene Glycol (Miralax) 17 gm BID PO Last administered on 12/28/16 08: 47; Admin Dose 17 GM; Start 12/22/16 at 21:00 Lorazepam (Ativan) 0.5 mg Q4H PRN PO ANXIETY; Start 12/22/16 at 20:30 Acetaminophen/ Hydrocodone Bitart ([place] (10/325)) 1 tab Q6H PRN PO Pain Last administered on 12/28/16 15:39; Admin Dose 1 TAB; Start 12/23/16 at 15:12 Ibuprofen (Motrin) 600 mg Q6H PRN PO PAIN OR TEMP ABOVE 38C Last administered on 12/28/16 10:19; Admin Dose 600 MG; Start 12/23/16 at 14:00 Divalproex Sodium (Depakote) 125 mg TID PO Last administered on 12/28/16 13: 16; Admin Dose 125 MG; Start 12/23/16 at 21:00 Levofloxacin (Levaquin) 500 mg DAILY@06 PO Last administered on 12/28/16 06: 45; Admin Dose 500 MG; Start 12/25/16 at 06:00 Amoxicillin (Amoxicillin) 500 mg Q6 PO Last administered on 12/28/16 17:34; Admin Dose 500 MG; Start 12/25/16 at 19:00 Lactulose (Enulose) 20 gm DAILY PO Last administered on 12/28/16 08:46; Admin Dose 20 GM; Start 12/26/16 at 09:00 JACK VALLE MD Dec 28, 2016 20:02
[2016-12-28 23:34] LABS: ALBUMIN 3.5 g/dL (3.8-4.8)
[2016-12-29] VITALS (12 sets, daily range): BP systolic 100–126; BP diastolic 58–137; PULSE 67–75; RESP 15–19
[2016-12-29] MEDS: AMOXICILLIN 500 MG CAP PO SCH ×4 (01:03→18:46)
[2016-12-29] MEDS: DOCUSATE SODIUM 100 MG CAP PO PRN (01:07)
[2016-12-29] MEDS: ACCU-CHEK XX SCH (02:00)
[2016-12-29] MEDS: LEVOFLOXACIN 500 MG TAB PO SCH (05:29)
[2016-12-29 07:04] LABS: BASOPHIL # 0.1 10^3/ul (0.0-0.1); BASOPHILS % 0.4 % (0.0-2.0); EOSINOPHILS # 0.2 10^3/ul (0.0-0.5); EOSINOPHILS % 1.5 % (0.0-7.0); HEMATOCRIT 35.3 % (37.0-47.0); HEMOGLOBIN 10.7 g/dl (12.0-16.0); LYMPHOCYTES % 16.5 % (15.0-51.0); MEAN CORPUSCULAR HEMOGLOBIN 30.1 pg (29.0-33.0); MEAN CORPUSCULAR HGB CONC 30.3 g/dl (32.0-37.0); MEAN CORPUSCULAR VOLUME 99.4 fl (82.0-101.0); MEAN PLATELET VOLUME 12.2 fl (7.4-10.4); MONOCYTE # 0.8 10^3/ul (0.3-0.9); MONOCYTES % 6.8 % (0.0-11.0); NEUTROPHIL # 8.9 10^3/ul (1.6-7.5); NEUTROPHILS % 74.1 % (39.0-77.0); PLATELET COUNT 252 10^3/UL (140-415); RED BLOOD COUNT 3.55 10^6/ul (4.20-5.40); RED CELL DISTRIBUTION WIDTH 14.6 % (11.5-14.5); WHITE BLOOD COUNT 12.1 10^3/ul (4.8-10.8)
[2016-12-29 07:19] LABS: ALBUMIN 3.5 g/dl (3.3-4.9); ALBUMIN/GLOBULIN RATIO 1.06; BILIRUBIN,INDIRECT 0.1 mg/dl (0-1.1); BILIRUBIN,TOTAL 0.1 mg/dl (0.2-1.3); CREATININE 0.93 mg/dl (0.44-1.00); POTASSIUM 4.8 mmol/L (3.5-5.1); TOTAL PROTEIN 6.8 g/dl (6.1-8.1)
[2016-12-29 07:34] LABS: IRON 51 ug/dl (35-150)
[2016-12-29 07:43] LABS: TOTAL IRON BINDING CAPACITY 200 ug/dl (241-421)
[2016-12-29] MEDS: INSULIN ASPART [NOVOLOG] 3 ML PEN SC SCH ×4 (07:55→20:13)
[2016-12-29] MEDS: ALBUTEROL/IPRATROPIUM (NEB) 3 ML AMP HHN SCH ×3 (08:58→23:43)
[2016-12-29] MEDS: VORICONAZOLE 200 MG TAB PO SCH ×2 (09:19→20:30)
[2016-12-29] MEDS: GABAPENTIN 300 MG CAP PO SCH ×3 (09:19→20:30)
[2016-12-29] MEDS: LINAGLIPTIN 5 MG TABLET PO SCH (09:19)
[2016-12-29] MEDS: predniSONE 10 MG TAB PO SCH (09:19)
[2016-12-29] MEDS: EZETIMIBE 10 MG TAB PO SCH (09:19)
[2016-12-29] MEDS: TIOTROPIUM 18 MCG CAPSULE INHA DEV INH SCH (09:20)
[2016-12-29] MEDS: ESCITALOPRAM 10 MG TAB PO SCH (09:20)
[2016-12-29] MEDS: SOLIFENACIN 5 MG TAB PO SCH (09:20)
[2016-12-29] MEDS: metFORMIN 500 MG TAB PO SCH ×2 (09:20→20:30)
[2016-12-29] MEDS: LACTULOSE 30ML CUP PO SCH (09:20)
[2016-12-29] MEDS: FUROSEMIDE 40 MG TAB PO SCH (09:21)
[2016-12-29] MEDS: FLECAINIDE 100 MG TAB PO SCH ×2 (09:22→20:36)
[2016-12-29] MEDS: SALMETEROL/FLUTICASONE 250/50 INHA INH SCH ×2 (09:22→20:29)
--- NOTE | 2016-12-29 09:32 | PDOCDIS ---
Discharge Instructions DIAGNOSIS Discharge Diagnosis 1. Severe constipation with no bowel movement lat 7 days. Last 12 hours she had 2 bowel movements, the last one 9:00 am with no trace of blood, no melena. She was passing gases. Incarcerated umbilical hernia partially reducible with palpable movable content and audible sound during reduction.Last 12 hours she had 2 bowel movements, the last one 9: 00 am with no trace of blood, no melena. Now less protrusion of the umbilical hernia. Dr. Chao and recommended a bariatric surgical consult with plan to repair the hernia in tertiary center . High risk of surgery acknowledged and discussed with the patient and family. 2. Bad odor from the urine with recurrent hematuria.- on Amoxil and Levaquin improved. 3.Low abdominal pain and llq abd pain with mild rebound. 4. Leukocytosis- stable. 5. History of having palpitations and bradycardia; lowest rate 45. 6. History of having bronchial asthma, now stable. 7. Wound of the postsurgical midline scar, right-sided abdomen, healed. 8. Status post cholecystectomy. 9. Postmenstrual syndrome. 10. Anxiety. 11. Claustrophobia. 12. Dyslipidemia. 13. Diabetes type 2. 14. History of having carbon dioxide retention- was on BIPAP, now stable. 15. Anemia of chronic disease with recent loss. H/H stable. 16. History of chronic kidney disease, improved. 17. History of having low iron and low magnesium levels- corrected. 18. Pain syndrome-on norco. 19. Major depression. 20. Altered level of consciousness- on and off. 21. Diverticulitis. 22. Left-sided chest pain- now no pain. 23.carbon dioxide narcosis (Hx of) 24.Trophic changes of both legs with change of a color. 25.Pilling of the skin of nail beds of both hands with deformities and trace of blood and swelling. 26.Bedridden for about 11 years being almost totally dependent from outside help. 27.Decubitus of the left gluteal area with mild redness of the calcaneal skin, stable. 28.Severe deconditioning 29.Daytime sleepiness 30.Severe krupa of knees(s/p steroid injection 2 months ago), hips and ankle joints 31.Calcaneal pain. 32.Umbilical reducible hernia 4-5cm in diameter.Postsurgical.Getting bigger. 33.Chronic norco,percocet, and other controlled substance user. 34.Bradycardia- now normal sinus rhythm on monitor. 35.Morbid obesity; Obesity hypopnea syndrome,hypercarbia with Pc02 57( average) 36.Hallucinations(mainly visual), confusion, fear of on and off 37.Hypertension, now normotensive. Congestive heart failure exacerbation with pulmonary edema.Improving 38.Low magnesium and low iron levels 39.Pannus 40.Morbid (severe) obesity due to excess calories (BMI 40 or greater) ( ICD10 E66.01 ) 41.Spinal stenosis with radiculopathy 42.KRUPA of hips and knees 43.Pain in right breast with mildly tender mass. 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 No vertebral fx. 45.Agarophobia 46.Claustrophobia 47.Mindless eating with preserved awareness and inability to stop. 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 HOME CARE INSTRUCTIONS: Diet Instructions: npo for 12 hours.Special Diet: carb controlled ACTIVITY: Activity Restrictions: Slowly Increase Activity Bathing Restrictions: Sponge Bath FOLLOW UP/APPOINTMENTS Follow-up Plan transfer to [facility]. REFERRALS Other Referrals Surgical(Bariatric preferable) re-evaluation in [facility] and f/u by dr. Loren Camarillo. OTHER ORDERS: Other Orders: Organize a transfer. SCHOOL/WORK RELEASE May return to School/Work on: Dec 29, 2016 May return to School/Work with: transfer to [facility]. STONE HERNANDEZ MD Dec 29, 2016 09:32
--- NOTE | 2016-12-29 09:42 | DS ---
Date/Time of Note Date/Time of Note DATE: 12/29/16 TIME: 09:38 Discharge Summary Admission/Discharge Info Admit Date/Time Dec 21, 2016 at 17:19 Discharge Date/Time 12/29/2016; Discharge Diagnosis 1. Severe constipation with no bowel movement lat 7 days. Last 12 hours she had 2 bowel movements, the last one 9:00 am with no trace of blood, no melena. She was passing gases. Incarcerated umbilical hernia partially reducible with palpable movable content and audible sound during reduction.Last 12 hours she had 2 bowel movements, the last one 9: 00 am with no trace of blood, no melena. Now less protrusion of the umbilical hernia. Dr. Chao and recommended a bariatric surgical consult with plan to repair the hernia in tertiary center . High risk of surgery acknowledged and discussed with the patient and family. 2. Bad odor from the urine with recurrent hematuria.- on Amoxil and Levaquin improved. 3.Low abdominal pain and llq abd pain with mild rebound. 4. Leukocytosis- stable. 5. History of having palpitations and bradycardia; lowest rate 45. 6. History of having bronchial asthma, now stable. 7. Wound of the postsurgical midline scar, right-sided abdomen, healed. 8. Status post cholecystectomy. 9. Postmenstrual syndrome. 10. Anxiety. 11. Claustrophobia. 12. Dyslipidemia. 13. Diabetes type 2. 14. History of having carbon dioxide retention- was on BIPAP, now stable. 15. Anemia of chronic disease with recent loss. H/H stable. 16. History of chronic kidney disease, improved. 17. History of having low iron and low magnesium levels- corrected. 18. Pain syndrome-on norco. 19. Major depression. 20. Altered level of consciousness- on and off. 21. Diverticulitis. 22. Left-sided chest pain- now no pain. 23.carbon dioxide narcosis (Hx of) 24.Trophic changes of both legs with change of a color. 25.Pilling of the skin of nail beds of both hands with deformities and trace of blood and swelling. 26.Bedridden for about 11 years being almost totally dependent from outside help. 27.Decubitus of the left gluteal area with mild redness of the calcaneal skin, stable. 28.Severe deconditioning 29.Daytime sleepiness 30.Severe ricarda of knees(s/p steroid injection 2 months ago), hips and ankle joints 31.Calcaneal pain. 32.Umbilical reducible hernia 4-5cm in diameter.Postsurgical.Getting bigger. 33.Chronic norco,percocet, and other controlled substance user. 34.Bradycardia- now normal sinus rhythm on monitor. 35.Morbid obesity; Obesity hypopnea syndrome,hypercarbia with Pc02 57( average) 36.Hallucinations(mainly visual), confusion, fear of on and off 37.Hypertension, now normotensive. Congestive heart failure exacerbation with pulmonary edema.Improving 38.Low magnesium and low iron levels 39.Pannus 40.Morbid (severe) obesity due to excess calories (BMI 40 or greater) ( ICD10 E66.01 ) 41.Spinal stenosis with radiculopathy 42.RICARDA of hips and knees 43.Pain in right breast with mildly tender mass. 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 No vertebral fx. 45.Agarophobia 46.Claustrophobia 47.Mindless eating with preserved awareness and inability to stop. Hx of Present Illness Confusion; worsening of sob, fear of .CHF and pain was controlled well. Planned to d/c 2 days ago when umbilical pain and enlargement of the hernia(incarceration) got worse with pain. Today she had a BM and the pain intensity is less. She is unable to move without 2 people's help. Plan to transfer to tertiary center. Hospital Course 1. Chronic incarcerated ventral hernia. No surgery to repair at this time since recurrence is very high with her super morbid obesity. Chronic constipation; CT noted -weight loss -gi eval -bowel regimen -surgical hernia repair 2. PNA -pulmonary toilette -abx -weight loss 3. Possible panniculitis improved -weight loss -abx prn 4. CHF -gentle diuresis -judicious fluid management 5. Renal insufficiency -judicious fluid management -avoid nephrotoxic agents 6. Anemia -obs 7. DM -diet/med control -weight loss 8. HTN -diet/med control -encourage weight loss 9. Super morbid obesity, bmi 62 -encourage diet optimization -encourage exercise -?surgical weight loss 10. Ischemic cardiac disease -card optimization 11. GERD -ppi -weight loss 12. Snoring, possible sleep apnea -weight loss -cpap Thank you. Patient seen and examined in collaboration with Dr. Jaret Clayton. Home Meds Active Scripts Docusate Sodium (Dok) 100 Mg Capsule, 200 MG PO BID Y for CONSTIPATION for 14 Days, #30 CAP Prov:STONE HERNANDEZ MD 11/23/16 Bisacodyl* (Bisacodyl*) 10 Mg Supp, 10 MG NC DAILY Y for CONSTIPATION for 30 Days, #60 SUPP Prov:STONE HERNANDEZ MD 11/23/16 Voriconazole* (Voriconazole*) 200 Mg Tablet, 200 MG PO BID for 14 Days, #10 TAB Prov:STONE HERNANDEZ MD 11/23/16 Reported Medications Sulfamethoxazole/Trimethoprim* (Bactrim Ds* Tablet) 1 Each Tablet, 1 TAB PO BID , TAB TAKE FOR 10 DAYS 11/08/16 Prednisone* (Prednisone*) 10 Mg Tab, 10 MG PO DAILY, TAB TAKE 3TAB FOR 3DAYS, 2TAB FORE 3 DAYS AND 1 TAB DAILY 11/08/16 Icosapent Ethyl (VASCEPA) 1 Gm Capsule, 1 GM PO DAILY, CAP 09/30/16 Olopatadine* (Pataday*) 0.2% - 2.5 Ml Drops, 1 DROP BOTH EYES DAILY, EA 09/30/16 Solifenacin* (Vesicare*) 5 Mg Tablet, 5 MG PO DAILY, TAB 09/30/16 Ezetimibe* (Zetia*) 10 Mg Tablet, 10 MG PO DAILY, TAB 09/30/16 Polyethylene Glycol 3350 (Polyethylene Glycol 3350) 255 Gm Powder, 255 GM PO 09/30/16 Linagliptin (TRADJENTA) 5 Mg Tablet, 5 MG PO DAILY, TAB 09/20/16 Clonidine Hcl* (Clonidine Hcl*) 0.1 Mg Tab, 0.1 MG PO DAILY Y for HTN, TAB 09/20/16 Furosemide* (Furosemide*) 40 Mg Tablet, 40 MG PO DAILY, TAB 09/20/16 Gabapentin* (Gabapentin*) 300 Mg Capsule, 300 MG PO NEEDED, #60 CAP 09/20/16 Potassium Chloride* (Potassium Chloride*) 8 Meq Capsule.er, 8 MEQ PO DAILY, CAP 09/20/16 Hydrocodone/Acetaminophen ([place] 10-325 Tablet) 1 Each Tablet, 1 EACH PO Q8H, TAB 09/20/16 Flecainide Acetate* (Flecainide Acetate*) 150 Mg Tablet, 150 MG PO BID, TAB 09/20/16 Escitalopram Oxalate* (Lexapro*) 10 Mg Tablet, 10 MG PO DAILY, #30 TAB 09/20/16 Diphenhydramine Hcl* (Benadryl*) 25 Mg Cap, 25 MG PO BID Y for ITCHING, CAP 10/21/15 Tiotropium [place]* (Spiriva*) 18 Mcg Cap.w.dev, 1 INH IH DAILY, EA 07/11/14 Metformin* (Glucophage*) 1,000 Mg Tablet, 1000 MG PO BID, TAB 07/11/14 Salmeterol Xinaf/Fluticasone* (Advair*) 250-50 Diskus Inhaler, 1 INH INH BID, INH 07/11/14 Aspirin (Low Dose Aspirin) 81 Mg Tablet.dr, 81 MG PO DAILY 07/11/14 Follow-up Plan transfer to [facility]. Primary Care Provider Stone Hernandez MD Pending Labs Laboratory Tests Test 12/28/16 11:57 12/28/16 17:33 12/28/16 20:57 12/29/16 06:13 Bedside Glucose 119mg/dL (70-220) 108mg/dL (70-220) 100mg/dL (70-220) White Blood Count 12.110^3/ul (4.8-10.8) Red Blood Count 3.5510^6/ul (4.20-5.40) Hemoglobin 10.7g/dl (12.0-16.0) Hematocrit 35.3% (37.0-47.0) Mean Corpuscular Volume 99.4fl (82.0-101.0) Mean Corpuscular Hemoglobin 30.1pg (29.0-33.0) Mean Corpuscular Hemoglobin Concent 30.3g/dl (32.0-37.0) Red Cell Distribution Width 14.6% (11.5-14.5) Platelet Count 24373^3/UL (140-415) Mean Platelet Volume 12.2fl (7.4-10.4) Neutrophils % 74.1% (39.0-77.0) Lymphocytes % 16.5% (15.0-51.0) Monocytes % 6.8% (0.0-11.0) Eosinophils % 1.5% (0.0-7.0) Basophils % 0.4% (0.0-2.0) Nucleated Red Blood Cells % 0.0/100WBC (0.0-0.0) Neutrophils # 8.910^3/ul (1.6-7.5) Lymphocytes # 2.010^3/ul (0.8-2.9) Monocytes # 0.810^3/ul (0.3-0.9) Eosinophils # 0.210^3/ul (0.0-0.5) Basophils # 0.110^3/ul (0.0-0.1) Nucleated Red Blood Cells # 0.010^3/ul (0.0-0.0) Sodium Level 140mmol/L (135-144) Potassium Level 4.8mmol/L (3.5-5.1) Chloride Level 99mmol/L (97-110) Carbon Dioxide Level 31mmol/L (21-31) Anion Gap 15 (8-16) Blood Urea Nitrogen 20mg/dl (7-20) Creatinine 0.93mg/dl (0.44-1.00) Glucose Level 92mg/dl (70-220) Calcium Level 9.0mg/dl (8.4-10.2) Iron Level 51ug/dl (35-150) Total Iron Binding Capacity 200ug/dl (241-421) Percent Iron Saturation 26% SAT (22-52) Total Bilirubin 0.1mg/dl (0.2-1.3) Direct Bilirubin 0.00mg/dl (0.00-0.20) Indirect Bilirubin 0.1mg/dl (0-1.1) Aspartate Amino Transf (AST/SGOT) 25IU/L (15-46) Alanine Aminotransferase (ALT/SGPT) 29IU/L (13-69) Alkaline Phosphatase 90IU/L (42-121) Total Protein 6.8g/dl (6.1-8.1) Albumin 3.5g/dl (3.3-4.9) Globulin 3.30g/dl (1.3-3.2) Albumin/Globulin Ratio 1.06 Test 12/29/16 09:12 Bedside Glucose 94mg/dL (70-220) STONE HERNANDEZ MD Dec 29, 2016 09:42
[2016-12-29] MEDS: ENOXAPARIN 40 MG/0.4 ML SYG SC SCH ×2 (10:05→20:32)
[2016-12-29] MEDS: DIVALPROEX (EC) 125 MG TAB PO SCH ×3 (10:15→20:29)
[2016-12-29] MEDS: HYDROCODONE/APAP (10/325) TAB PO PRN ×3 (10:16→22:41)
--- NOTE | 2016-12-29 10:52 | PN ---
Date/Time of Note Date/Time of Note DATE: 12/29/16 TIME: 10:49 Assessment/Plan Lines/Catheters IV Catheter Type (from Nrs): Saline Lock Mascorro in Place (from Nrs): No Assessment/Plan Chief Complaint/Hosp Course 1. Chronic incarcerated ventral hernia. Chronic constipation; CT noted with partial obstruction. Multiple BMs today. -patient will need surgery and i have had multiple conversations with different family memebers (daughters and MD son in law) who have elected to transfer pt to facility where son in law is stationed -weight loss -bowel regimen 2. PNA -pulmonary toilette -abx -weight loss 3. Possible panniculitis improved -weight loss -abx prn 4. CHF -gentle diuresis -judicious fluid management 5. Renal insufficiency -judicious fluid management -avoid nephrotoxic agents 6. Anemia -obs 7. DM -diet/med control -weight loss 8. HTN -diet/med control -encourage weight loss 9. Super morbid obesity, bmi 62 -encourage diet optimization -encourage exercise -?surgical weight loss 10. Ischemic cardiac disease -card optimization 11. GERD -ppi -weight loss 12. Snoring, possible sleep apnea -weight loss -cpap Thank you, Problems: Subjective 24 Hr Interval Summary Passing gas & multiple BMs. Pain improved but persists. CT noted. No fevers, chills, sob, congested cough, cp, palpitations, marie, dizziness, n/v/d/dysuria. Exam/Review of Systems Vital Signs Vitals Vital Signs Date Time Temp Pulse Resp B/P Pulse Ox O2 Delivery O2 Flow Rate FiO2 12/29/16 08:09 72 12/29/16 07:51 98.0 100/59 97 12/29/16 04:58 2.0 12/28/16 23:11 Nasal Cannula Intake and Output 12/28/16 12/28/16 12/29/16 15:00 23:00 07:00 Intake Total 1000 ml 240 ml Balance 1000 ml 240 ml Exam Free Text/Dictation Constitutional: alert, oriented, super obese, No distress Psych: nl mood/affect, No anxiety Head: normocephalic, atraumatic Eyes: EOMI, PERRL, No icteric ENMT: nl external ears & nose, mucosa pink and moist Neck: supple, non-tender Respiratory: diminished breath sounds, No normal air movement, No congested cough, No intercostal retraction, No labored breathing Cardiovascular: regular rate and rhythm, No edema Gastrointestinal: soft, non-tender, other (Incarcerated ventral hernia-no discoloration), No rebound or guarding Musculoskeletal: No nl extremities to inspection, No nl gait and stance, No joint tenderness Extremities: No calf tenderness, No cyanosis Neurological: nl mental status, nl speech Skin: No diaphoresis Lymph: nl lymph nodes Results Result Diagram: 12/29/16 0613 12/29/16 0613 KAREN MEDINA MD Dec 29, 2016 10:52
--- NOTE | 2016-12-29 12:08 | CONS ---
Date/Time of Note Date/Time of Note DATE: 12/29/16 TIME: 12:06 Assessment/Plan Assessment/Plan Chief Complaint/Hosp Course Acute on chronic diastolic heart failure: EF preserved. ~euvolemic UTI Constipation with chronic incarcerated ventral hernia: now wants surgery but at a different facility H/o unknown cardiac arrhythmia: On flecainide chronically. DM HTN Bedbound state -ASA -lasix 40mg PO daily -flecainide -antibiotics per PMD Problems: Consultation Date/Type/Reason Admit Date/Time Dec 21, 2016 at 17:19 Initial Consult Date 12/27/16 Type of Consultation: Cardiology Referring Provider: STONE HERNANDEZ MD 24 HR Interval Summary Free Text/Dictation Was to have surgery but refused. Now agreeable but wants to be transferred to [facility]. She did have a BM yesterday. Exam/Review of Systems Vital Signs Vitals Vital Signs Date Time Temp Pulse Resp B/P Pulse Ox O2 Delivery O2 Flow Rate FiO2 12/29/16 12:02 67 12/29/16 11:46 97.8 16 /137 96 12/29/16 08:58 Nasal Cannula 2.0 Intake and Output 12/28/16 12/28/16 12/29/16 14:59 22:59 06:59 Intake Total 1000 ml 240 ml Balance 1000 ml 240 ml Exam Constitutional: alert, oriented Psych: anxiety Head: atraumatic, normocephalic Neck: No jvd Respiratory: diminished breath sounds, No clear to auscultation Cardiovascular: edema (trace), regular rate and rhythm, systolic murmur (2/6 [place]) Gastrointestinal: soft Neurological: nl mental status, nl speech Results Result Diagram: 12/29/16 0613 12/29/16 0613 Results 24 hrs Laboratory Tests Test 12/28/16 17:33 12/28/16 20:57 12/29/16 06:13 12/29/16 09:12 Bedside Glucose 108 100 94 White Blood Count 12.1 H Red Blood Count 3.55 L Hemoglobin 10.7 L Hematocrit 35.3 L Mean Corpuscular Volume 99.4 Mean Corpuscular Hemoglobin 30.1 Mean Corpuscular Hemoglobin Concent 30.3 L Red Cell Distribution Width 14.6 H Platelet Count 252 Mean Platelet Volume 12.2 H Neutrophils % 74.1 Lymphocytes % 16.5 Monocytes % 6.8 Eosinophils % 1.5 Basophils % 0.4 Nucleated Red Blood Cells % 0.0 Neutrophils # 8.9 H Lymphocytes # 2.0 Monocytes # 0.8 Eosinophils # 0.2 Basophils # 0.1 Nucleated Red Blood Cells # 0.0 Sodium Level 140 Potassium Level 4.8 Chloride Level 99 Carbon Dioxide Level 31 Anion Gap 15 Blood Urea Nitrogen 20 Creatinine 0.93 Glucose Level 92 Calcium Level 9.0 Iron Level 51 Total Iron Binding Capacity 200 L Percent Iron Saturation 26 Total Bilirubin 0.1 L Direct Bilirubin 0.00 Indirect Bilirubin 0.1 Aspartate Amino Transf (AST/SGOT) 25 Alanine Aminotransferase (ALT/SGPT) 29 Alkaline Phosphatase 90 Total Protein 6.8 Albumin 3.5 Globulin 3.30 H Albumin/Globulin Ratio 1.06 Medications Medications Current Medications Ondansetron HCl (Zofran Inj) 4 mg Q6H PRN IV NAUSEA AND/OR VOMITING Last administered on 12/27/16 16:14; Admin Dose 4 MG; Start 12/21/16 at 23:00 Morphine Sulfate (morphine) 2 mg Q4H PRN IV PAIN Last administered on 00:09; Admin Dose 2 MG; Start 12/21/16 at 23:00 Diagnostic Test (Pha) (Accu-Chek) 1 ea 02 XX Last administered on 12/23/16 02: 31; Admin Dose 1 EA; Start 12/22/16 at 02:00 Miscellaneous Information 1 ea NOTE XX ; Start 12/21/16 at 23:00 Glucose (Glutose) 15 gm Q15M PRN PO DECREASED GLUCOSE; Start 12/21/16 at 23:00 Glucose (Glutose) 22.5 gm Q15M PRN PO DECREASED GLUCOSE; Start 12/21/16 at 23: 00 Dextrose (D50w Syringe) 25 ml Q15M PRN IV DECREASED GLUCOSE; Start 12/21/16 at 23:00 Dextrose (D50w Syringe) 50 ml Q15M PRN IV DECREASED GLUCOSE; Start 12/21/16 at 23:00 Glucagon (Glucagen) 1 mg Q15M PRN IM DECREASED GLUCOSE; Start 12/21/16 at 23:00 Glucose (Glutose) 15 gm Q15M PRN BUCCAL DECREASED GLUCOSE; Start 12/21/16 at 23 :00 Aspirin (Halfprin) 81 mg DAILY PO Last administered on 12/28/16 08:46; Admin Dose 81 MG; Start 12/23/16 at 09:00; Status Future Hold Bisacodyl (Dulcolax Supp) 10 mg DAILY PRN AL CONSTIPATION Last administered on 12/25/16 12:41; Admin Dose 10 MG; Start 12/22/16 at 17:00 Clonidine (Catapres) 0.1 mg DAILY PRN PO HTN; Start 12/22/16 at 17:00 Diphenhydramine HCl (Benadryl) 25 mg BID PRN PO ITCHING; Start 12/22/16 at 17: 00 Docusate Sodium (Colace) 200 mg BID PRN PO CONSTIPATION Last administered on 01:07; Admin Dose 200 MG; Start 12/22/16 at 17:00 Escitalopram Oxalate (Lexapro) 10 mg DAILY PO Last administered on 12/29/16 09:20; Admin Dose 10 MG; Start 12/23/16 at 09:00 EZETIMIBE (Zetia) 10 mg DAILY PO Last administered on 12/29/16 09:19; Admin Dose 10 MG; Start 12/23/16 at 09:00 Furosemide (Lasix) 40 mg DAILY PO Last administered on 12/29/16 09:21; Admin Dose 40 MG; Start 12/23/16 at 09:00 Gabapentin (Neurontin) 300 mg TID PO Last administered on 12/29/16 09:19; Admin Dose 300 MG; Start 12/22/16 at 21:00 Linagliptin (Tradjenta) 5 mg DAILY PO Last administered on 12/29/16 09:19; Admin Dose 5 MG; Start 12/23/16 at 09:00 Metformin HCl (Glucophage) 1,000 mg BID PO Last administered on 12/29/16 09: 20; Admin Dose 1,000 MG; Start 12/22/16 at 21:00 Prednisone (Prednisone) 10 mg DAILY PO Last administered on 12/29/16 09:19; Admin Dose 10 MG; Start 12/23/16 at 09:00 Salmeterol Xinafoate/ Fluticasone (Advair 250/50 Diskus) 1 inh BID INH Last administered on 12/29/16 09:22; Admin Dose 1 INH; Start 12/22/16 at 21:00 Solifenacin (Vesicare) 5 mg DAILY PO Last administered on 12/29/16 09:20; Admin Dose 5 MG; Start 12/23/16 at 09:00 Tiotropium [place] (Spiriva) 1 inh DAILY INH Last administered on 12/29/16 09 :20; Admin Dose 1 INH; Start 12/23/16 at 09:00 Voriconazole (Vfend) 200 mg BID PO Last administered on 12/29/16 09:19; Admin Dose 200 MG; Start 12/22/16 at 21:00 Enoxaparin Sodium (Lovenox) 80 mg BID SC Last administered on 12/29/16 10:05 ; Admin Dose 80 MG; Start 12/22/16 at 21:00 Flecainide Acetate (Tambocor) 150 mg BID PO Last administered on 12/29/16 09: 22; Admin Dose 150 MG; Start 12/22/16 at 21:00 Lorazepam (Ativan) 0.5 mg Q4H PRN PO ANXIETY; Start 12/22/16 at 20:30 Acetaminophen/ Hydrocodone Bitart ([place] (10/325)) 1 tab Q6H PRN PO Pain Last administered on 12/29/16 10:16; Admin Dose 1 TAB; Start 12/23/16 at 15:12 Ibuprofen (Motrin) 600 mg Q6H PRN PO PAIN OR TEMP ABOVE 38C Last administered on 12/28/16 10:19; Admin Dose 600 MG; Start 12/23/16 at 14:00 Divalproex Sodium (Depakote) 125 mg TID PO Last administered on 12/29/16 10: 15; Admin Dose 125 MG; Start 12/23/16 at 21:00 Levofloxacin (Levaquin) 500 mg DAILY@06 PO Last administered on 12/29/16 05: 29; Admin Dose 500 MG; Start 12/25/16 at 06:00 Amoxicillin (Amoxicillin) 500 mg Q6 PO Last administered on 12/29/16 05:29; Admin Dose 500 MG; Start 12/25/16 at 19:00 Lactulose (Enulose) 20 gm DAILY PO Last administered on 12/29/16 09:20; Admin Dose 20 GM; Start 12/26/16 at 09:00 KEVIN CHOU Dec 29, 2016 12:08
--- NOTE | 2016-12-29 12:09 | CONS ---
Date/Time of Note Date/Time of Note DATE: 12/29/16 TIME: 12:09 Assessment/Plan Assessment/Plan Chief Complaint/Hosp Course 1. Anemia, complex, multifactorial with component ACD -obs NO NEEDS FOR TRANSFUSION AT PRESENT LEUKOCYTOSIS- REACTIVE MONITOR CLOSELY ATB- PER ID 2. Chronic incarcerated ventral hernia. No surgery to repair at this time since recurrence is very high with her super morbid obesity. Chronic constipation -weight loss -gi F-UP -sbft vs ct with oral contrast -bowel regimen 3. PNA -pulmonary toilette -abx -weight loss 4. Possible panniculitis improved -weight loss -abx prn 5. CHF -gentle diuresis -judicious fluid management 5. Renal insufficiency -judicious fluid management -avoid nephrotoxic agents 6. DM -diet/med control -weight loss 7. HTN -diet/med control -encourage weight loss 8. Super morbid obesity, bmi 62 -encourage diet optimization -encourage exercise -?surgical weight loss 9. Ischemic cardiac disease -card optimization 10. GERD -ppi -weight loss 11. Snoring, possible sleep apnea -weight loss -cpap Problems: Consultation Date/Type/Reason Admit Date/Time Dec 21, 2016 at 17:19 Initial Consult Date 12/26/16 Type of Consultation: [facility] Referring Provider: STONE HERNANDEZ MD 24 HR Interval Summary Free Text/Dictation ALL NOTED NO NEW EVENTS Exam/Review of Systems Vital Signs Vitals Vital Signs Date Time Temp Pulse Resp B/P Pulse Ox O2 Delivery O2 Flow Rate FiO2 12/29/16 12:02 67 12/29/16 11:46 97.8 16 /137 96 12/29/16 08:58 Nasal Cannula 2.0 Intake and Output 12/28/16 12/28/16 12/29/16 14:59 22:59 06:59 Intake Total 1000 ml 240 ml Balance 1000 ml 240 ml Exam Constitutional: alert, oriented Psych: No nl mood/affect Head: atraumatic, normocephalic Neck: No jvd (difficult to examine ) Respiratory: diminished breath sounds, No clear to auscultation, No crackles/rales Cardiovascular: regular rate and rhythm, systolic murmur (2/6 [place]), No edema Gastrointestinal: non-tender (mild diffuse ), No soft (ventral hernia indurated ) Neurological: nl mental status, nl speech Results Result Diagram: 12/29/16 0613 12/29/16 0613 Results 24 hrs Laboratory Tests Test 12/28/16 17:33 12/28/16 20:57 12/29/16 06:13 12/29/16 09:12 Bedside Glucose 108 100 94 White Blood Count 12.1 H Red Blood Count 3.55 L Hemoglobin 10.7 L Hematocrit 35.3 L Mean Corpuscular Volume 99.4 Mean Corpuscular Hemoglobin 30.1 Mean Corpuscular Hemoglobin Concent 30.3 L Red Cell Distribution Width 14.6 H Platelet Count 252 Mean Platelet Volume 12.2 H Neutrophils % 74.1 Lymphocytes % 16.5 Monocytes % 6.8 Eosinophils % 1.5 Basophils % 0.4 Nucleated Red Blood Cells % 0.0 Neutrophils # 8.9 H Lymphocytes # 2.0 Monocytes # 0.8 Eosinophils # 0.2 Basophils # 0.1 Nucleated Red Blood Cells # 0.0 Sodium Level 140 Potassium Level 4.8 Chloride Level 99 Carbon Dioxide Level 31 Anion Gap 15 Blood Urea Nitrogen 20 Creatinine 0.93 Glucose Level 92 Calcium Level 9.0 Iron Level 51 Total Iron Binding Capacity 200 L Percent Iron Saturation 26 Total Bilirubin 0.1 L Direct Bilirubin 0.00 Indirect Bilirubin 0.1 Aspartate Amino Transf (AST/SGOT) 25 Alanine Aminotransferase (ALT/SGPT) 29 Alkaline Phosphatase 90 Total Protein 6.8 Albumin 3.5 Globulin 3.30 H Albumin/Globulin Ratio 1.06 Medications Medications Current Medications Ondansetron HCl (Zofran Inj) 4 mg Q6H PRN IV NAUSEA AND/OR VOMITING Last administered on 12/27/16 16:14; Admin Dose 4 MG; Start 12/21/16 at 23:00 Morphine Sulfate (morphine) 2 mg Q4H PRN IV PAIN Last administered on 00:09; Admin Dose 2 MG; Start 12/21/16 at 23:00 Diagnostic Test (Pha) (Accu-Chek) 1 ea 02 XX Last administered on 12/23/16 02: 31; Admin Dose 1 EA; Start 12/22/16 at 02:00 Miscellaneous Information 1 ea NOTE XX ; Start 12/21/16 at 23:00 Glucose (Glutose) 15 gm Q15M PRN PO DECREASED GLUCOSE; Start 12/21/16 at 23:00 Glucose (Glutose) 22.5 gm Q15M PRN PO DECREASED GLUCOSE; Start 12/21/16 at 23: 00 Dextrose (D50w Syringe) 25 ml Q15M PRN IV DECREASED GLUCOSE; Start 12/21/16 at 23:00 Dextrose (D50w Syringe) 50 ml Q15M PRN IV DECREASED GLUCOSE; Start 12/21/16 at 23:00 Glucagon (Glucagen) 1 mg Q15M PRN IM DECREASED GLUCOSE; Start 12/21/16 at 23:00 Glucose (Glutose) 15 gm Q15M PRN BUCCAL DECREASED GLUCOSE; Start 12/21/16 at 23 :00 Aspirin (Halfprin) 81 mg DAILY PO Last administered on 12/28/16 08:46; Admin Dose 81 MG; Start 12/23/16 at 09:00; Status Future Hold Bisacodyl (Dulcolax Supp) 10 mg DAILY PRN [place] CONSTIPATION Last administered on 12/25/16 12:41; Admin Dose 10 MG; Start 12/22/16 at 17:00 Clonidine (Catapres) 0.1 mg DAILY PRN PO HTN; Start 12/22/16 at 17:00 Diphenhydramine HCl (Benadryl) 25 mg BID PRN PO ITCHING; Start 12/22/16 at 17: 00 Docusate Sodium (Colace) 200 mg BID PRN PO CONSTIPATION Last administered on 01:07; Admin Dose 200 MG; Start 12/22/16 at 17:00 Escitalopram Oxalate (Lexapro) 10 mg DAILY PO Last administered on 12/29/16 09:20; Admin Dose 10 MG; Start 12/23/16 at 09:00 EZETIMIBE (Zetia) 10 mg DAILY PO Last administered on 12/29/16 09:19; Admin Dose 10 MG; Start 12/23/16 at 09:00 Furosemide (Lasix) 40 mg DAILY PO Last administered on 12/29/16 09:21; Admin Dose 40 MG; Start 12/23/16 at 09:00 Gabapentin (Neurontin) 300 mg TID PO Last administered on 12/29/16 09:19; Admin Dose 300 MG; Start 12/22/16 at 21:00 Linagliptin (Tradjenta) 5 mg DAILY PO Last administered on 12/29/16 09:19; Admin Dose 5 MG; Start 12/23/16 at 09:00 Metformin HCl (Glucophage) 1,000 mg BID PO Last administered on 12/29/16 09: 20; Admin Dose 1,000 MG; Start 12/22/16 at 21:00 Prednisone (Prednisone) 10 mg DAILY PO Last administered on 12/29/16 09:19; Admin Dose 10 MG; Start 12/23/16 at 09:00 Salmeterol Xinafoate/ Fluticasone (Advair 250/50 Diskus) 1 inh BID INH Last administered on 12/29/16 09:22; Admin Dose 1 INH; Start 12/22/16 at 21:00 Solifenacin (Vesicare) 5 mg DAILY PO Last administered on 12/29/16 09:20; Admin Dose 5 MG; Start 12/23/16 at 09:00 Tiotropium [place] (Spiriva) 1 inh DAILY INH Last administered on 12/29/16 09 :20; Admin Dose 1 INH; Start 12/23/16 at 09:00 Voriconazole (Vfend) 200 mg BID PO Last administered on 12/29/16 09:19; Admin Dose 200 MG; Start 12/22/16 at 21:00 Enoxaparin Sodium (Lovenox) 80 mg BID SC Last administered on 12/29/16 10:05 ; Admin Dose 80 MG; Start 12/22/16 at 21:00 Flecainide Acetate (Tambocor) 150 mg BID PO Last administered on 12/29/16 09: 22; Admin Dose 150 MG; Start 12/22/16 at 21:00 Lorazepam (Ativan) 0.5 mg Q4H PRN PO ANXIETY; Start 12/22/16 at 20:30 Acetaminophen/ Hydrocodone Bitart ([place] (10/325)) 1 tab Q6H PRN PO Pain Last administered on 12/29/16 10:16; Admin Dose 1 TAB; Start 12/23/16 at 15:12 Ibuprofen (Motrin) 600 mg Q6H PRN PO PAIN OR TEMP ABOVE 38C Last administered on 12/28/16 10:19; Admin Dose 600 MG; Start 12/23/16 at 14:00 Divalproex Sodium (Depakote) 125 mg TID PO Last administered on 12/29/16 10: 15; Admin Dose 125 MG; Start 12/23/16 at 21:00 Levofloxacin (Levaquin) 500 mg DAILY@06 PO Last administered on 12/29/16 05: 29; Admin Dose 500 MG; Start 12/25/16 at 06:00 Amoxicillin (Amoxicillin) 500 mg Q6 PO Last administered on 12/29/16 05:29; Admin Dose 500 MG; Start 12/25/16 at 19:00 Lactulose (Enulose) 20 gm DAILY PO Last administered on 12/29/16 09:20; Admin Dose 20 GM; Start 12/26/16 at 09:00 JORGE PEREZ MD Dec 29, 2016 12:09
--- NOTE | 2016-12-29 12:39 | CONS ---
Date/Time of Note Date/Time of Note DATE: 12/29/16 TIME: 12:37 Consult Date/Type/Reason Admit Date/Time Dec 21, 2016 at 17:19 Initial Consult Date 12/27/16 Type of Consultation: ID Ordering Provider: STONE HERNANDEZ MD Objective Vital Signs Date Time Temp Pulse Resp B/P Pulse Ox O2 Delivery O2 Flow Rate FiO2 12/29/16 12:02 67 12/29/16 11:46 97.8 16 /137 96 12/29/16 08:58 Nasal Cannula 2.0 Intake and Output 12/28/16 12/28/16 12/29/16 14:59 22:59 06:59 Intake Total 1000 ml 240 ml Balance 1000 ml 240 ml Results/Medications Result Diagram: 12/29/1613 12/29/1613 Results 24 hrs Laboratory Tests Test 12/28/16 17:33 12/28/16 20:57 12/29/16 06:13 12/29/16 09:12 Bedside Glucose 108 100 94 White Blood Count 12.1 H Red Blood Count 3.55 L Hemoglobin 10.7 L Hematocrit 35.3 L Mean Corpuscular Volume 99.4 Mean Corpuscular Hemoglobin 30.1 Mean Corpuscular Hemoglobin Concent 30.3 L Red Cell Distribution Width 14.6 H Platelet Count 252 Mean Platelet Volume 12.2 H Neutrophils % 74.1 Lymphocytes % 16.5 Monocytes % 6.8 Eosinophils % 1.5 Basophils % 0.4 Nucleated Red Blood Cells % 0.0 Neutrophils # 8.9 H Lymphocytes # 2.0 Monocytes # 0.8 Eosinophils # 0.2 Basophils # 0.1 Nucleated Red Blood Cells # 0.0 Sodium Level 140 Potassium Level 4.8 Chloride Level 99 Carbon Dioxide Level 31 Anion Gap 15 Blood Urea Nitrogen 20 Creatinine 0.93 Glucose Level 92 Calcium Level 9.0 Iron Level 51 Total Iron Binding Capacity 200 L Percent Iron Saturation 26 Total Bilirubin 0.1 L Direct Bilirubin 0.00 Indirect Bilirubin 0.1 Aspartate Amino Transf (AST/SGOT) 25 Alanine Aminotransferase (ALT/SGPT) 29 Alkaline Phosphatase 90 Total Protein 6.8 Albumin 3.5 Globulin 3.30 H Albumin/Globulin Ratio 1.06 Medications Current Medications Ondansetron HCl (Zofran Inj) 4 mg Q6H PRN IV NAUSEA AND/OR VOMITING Last administered on 12/27/16t 16:14; Admin Dose 4 MG; Start 12/21/16 at 23:00 Morphine Sulfate (morphine) 2 mg Q4H PRN IV PAIN Last administered on 00:09; Admin Dose 2 MG; Start 12/21/16 at 23:00 Diagnostic Test (Pha) (Accu-Chek) 1 ea 02 XX Last administered on 12/23/16 02: 31; Admin Dose 1 EA; Start 12/22/16 at 02:00 Miscellaneous Information 1 ea NOTE XX ; Start 12/21/16 at 23:00 Glucose (Glutose) 15 gm Q15M PRN PO DECREASED GLUCOSE; Start 12/21/16 at 23:00 Glucose (Glutose) 22.5 gm Q15M PRN PO DECREASED GLUCOSE; Start 12/21/16 at 23: 00 Dextrose (D50w Syringe) 25 ml Q15M PRN IV DECREASED GLUCOSE; Start 12/21/16 at 23:00 Dextrose (D50w Syringe) 50 ml Q15M PRN IV DECREASED GLUCOSE; Start 12/21/16 at 23:00 Glucagon (Glucagen) 1 mg Q15M PRN IM DECREASED GLUCOSE; Start 12/21/16 at 23:00 Glucose (Glutose) 15 gm Q15M PRN BUCCAL DECREASED GLUCOSE; Start 12/21/16 at 23 :00 Aspirin (Halfprin) 81 mg DAILY PO Last administered on 12/28/16 08:46; Admin Dose 81 MG; Start 12/23/16 at 09:00; Status Future Hold Bisacodyl (Dulcolax Supp) 10 mg DAILY PRN [place] CONSTIPATION Last administered on 12/25/16 12:41; Admin Dose 10 MG; Start 12/22/16 at 17:00 Clonidine (Catapres) 0.1 mg DAILY PRN PO HTN; Start 12/22/16 at 17:00 Diphenhydramine HCl (Benadryl) 25 mg BID PRN PO ITCHING; Start 12/22/16 at 17: 00 Docusate Sodium (Colace) 200 mg BID PRN PO CONSTIPATION Last administered on 01:07; Admin Dose 200 MG; Start 12/22/16 at 17:00 Escitalopram Oxalate (Lexapro) 10 mg DAILY PO Last administered on 12/29/16 09:20; Admin Dose 10 MG; Start 12/23/16 at 09:00 EZETIMIBE (Zetia) 10 mg DAILY PO Last administered on 12/29/16 09:19; Admin Dose 10 MG; Start 12/23/16 at 09:00 Furosemide (Lasix) 40 mg DAILY PO Last administered on 12/29/16 09:21; Admin Dose 40 MG; Start 12/23/16 at 09:00 Gabapentin (Neurontin) 300 mg TID PO Last administered on 12/29/16 09:19; Admin Dose 300 MG; Start 12/22/16 at 21:00 Linagliptin (Tradjenta) 5 mg DAILY PO Last administered on 12/29/16 09:19; Admin Dose 5 MG; Start 12/23/16 at 09:00 Metformin HCl (Glucophage) 1,000 mg BID PO Last administered on 12/29/16 09: 20; Admin Dose 1,000 MG; Start 12/22/16 at 21:00 Prednisone (Prednisone) 10 mg DAILY PO Last administered on 12/29/16 09:19; Admin Dose 10 MG; Start 12/23/16 at 09:00 Salmeterol Xinafoate/ Fluticasone (Advair 250/50 Diskus) 1 inh BID INH Last administered on 12/29/16 09:22; Admin Dose 1 INH; Start 12/22/16 at 21:00 Solifenacin (Vesicare) 5 mg DAILY PO Last administered on 12/29/16 09:20; Admin Dose 5 MG; Start 12/23/16 at 09:00 Tiotropium [place] (Spiriva) 1 inh DAILY INH Last administered on 12/29/16 09 :20; Admin Dose 1 INH; Start 12/23/16 at 09:00 Voriconazole (Vfend) 200 mg BID PO Last administered on 12/29/16 09:19; Admin Dose 200 MG; Start 12/22/16 at 21:00 Enoxaparin Sodium (Lovenox) 80 mg BID SC Last administered on 12/29/16 10:05 ; Admin Dose 80 MG; Start 12/22/16 at 21:00 Flecainide Acetate (Tambocor) 150 mg BID PO Last administered on 12/29/16 09: 22; Admin Dose 150 MG; Start 12/22/16 at 21:00 Lorazepam (Ativan) 0.5 mg Q4H PRN PO ANXIETY; Start 12/22/16 at 20:30 Acetaminophen/ Hydrocodone Bitart ([place] (10)) 1 tab Q6H PRN PO Pain Last administered on 12/29/16 10:16; Admin Dose 1 TAB; Start 12/23/16 at 15:12 Ibuprofen (Motrin) 600 mg Q6H PRN PO PAIN OR TEMP ABOVE 38C Last administered on 12/28/16 10:19; Admin Dose 600 MG; Start 12/23/16 at 14:00 Divalproex Sodium (Depakote) 125 mg TID PO Last administered on 12/29/16 10: 15; Admin Dose 125 MG; Start 12/23/16 at 21:00 Levofloxacin (Levaquin) 500 mg DAILY@06 PO Last administered on 12/29/16 05: 29; Admin Dose 500 MG; Start 12/25/16 at 06:00 Amoxicillin (Amoxicillin) 500 mg Q6 PO Last administered on 12/29/16 05:29; Admin Dose 500 MG; Start 12/25/16 at 19:00 Lactulose (Enulose) 20 gm DAILY PO Last administered on 12/29/16 09:20; Admin Dose 20 GM; Start 12/26/16 at 09:00 Assessment/Plan Chief Complaint/Hosp Course SUBJECTIVE: Awake, looks comfortable, no fevers MICROBIOLOGY: Urine culture on 12/22/2016 grew enterococcus species only 10 to 20,000 colonies. ANTIMICROBIALS: Amoxicillin and Levaquin. DIAGNOSTICS: Chest x-ray on 12/25/2016 revealed cardiomegaly with pulmonary edema, questionable superimposed infiltrates greater. CT abdomen revealed Left abdominal hernia containing portions of the transverse colon with associated inflammatory stranding. There is interval dilatation of the proximal transverse colon and ascending colon when compared to prior. The findings are concerning for at least partial transverse colonic bowel obstruction with strangulated left abdominal hernia. PHYSICAL EXAMINATION: GENERAL: This is a morbidly obese, well-developed, elderly [place] woman who is in no distress. HEENT: Head atraumatic, normocephalic. Sclerae anicteric. Buccal mucosa dry. NECK: Supple. CHEST: Rise symmetrical. Breath sounds diminished to bases. HEART: S1, S2. ABDOMEN: Distended, soft, with evidence of the abdomen obese with bowel tones hypoactive. EXTREMITIES: With edema. ASSESSMENT: 1. Pneumonia. 2. Mild enterococcal urinary tract infection. 3. Morbid obesity. 4. Diabetes. 5. Coronary artery disease. 6. Chronic incarcerated ventral hernia with partial SBO==> surgery on case PLAN: The patient remains stable, continue present care, antibiotics. F/u surgical rec-s ==> needs surgery at different facility Problems: E[facility] [place] NP Dec 29, 2016 12:39
--- NOTE | 2016-12-29 13:18 | RADRPT ---
PROCEDURE: XR Chest. CLINICAL INDICATION: shortness of breath TECHNIQUE: Single portable view of the chest was obtained COMPARISON: CR CHEST 10/24/2015 FINDINGS: There is moderate cardiomegaly. There is moderate pulmonary vascular congestion. There are bilateral perihilar and lower lobe infil trates and small bilateral pleural effusions. There is no pneumothorax. The bones and soft tissues are unremarkable. RPTAT: AA IMPRESSION: Moderate cardiomegaly with pulmonary vascular congestion. .Edmundo Levy MD, Date Time Electronically viewed and signed by .Edmundo Levy MD, on 12/29/2016 13:17 .S/
--- NOTE | 2016-12-29 17:08 | CONS ---
Date/Time of Note Date/Time of Note DATE: 12/29/16 TIME: 17:08 Assessment/Plan Assessment/Plan Chief Complaint/Hosp Course 76 F wtih pMHx of HTN, COPD, CHF, DM II, Morbid obesity who is admitted for CHF Exacebration, and renal has been consulted for electrolyte imbalance and Fluid management. Problems: Additional Assessment/Plan 1. Acute CHF Exacerbation, acute on chronic, systolic and diastolic 2. Hypomagnesemia 3. Acute pulmonary edema due to acute CHF exaceration 4. HTN 5. COPD 6. Possible Pneumonia Plan: On PO Lasix 40mg po daily + amoxicillin, and levaquin PO abx Cr and electrolytes stable today neurology following continue other med, avoid nephrotoxic medications will follow up Consultation Date/Type/Reason Admit Date/Time Dec 21, 2016 at 17:19 Initial Consult Date 12/23/16 Type of Consultation: NEPHROLOGY Referring Provider: STONE HERNANDEZ MD Exam/Review of Systems Vital Signs Vitals Vital Signs Date Time Temp Pulse Resp B/P Pulse Ox O2 Delivery O2 Flow Rate FiO2 12/29/16 16:39 72 20 98 Nasal Cannula 2.0 12/29/16 15:26 98.1 118/58 Intake and Output 12/28/16 12/28/16 12/29/16 15:00 23:00 07:00 Intake Total 1000 ml 240 ml Balance 1000 ml 240 ml Results Result Diagram: 12/29/16 0613 12/29/16 0613 Results 24 hrs Laboratory Tests Test 12/28/16 17:33 12/28/16 20:57 12/29/16 06:13 12/29/16 09:12 Bedside Glucose 108 100 94 White Blood Count 12.1 H Red Blood Count 3.55 L Hemoglobin 10.7 L Hematocrit 35.3 L Mean Corpuscular Volume 99.4 Mean Corpuscular Hemoglobin 30.1 Mean Corpuscular Hemoglobin Concent 30.3 L Red Cell Distribution Width 14.6 H Platelet Count 252 Mean Platelet Volume 12.2 H Neutrophils % 74.1 Lymphocytes % 16.5 Monocytes % 6.8 Eosinophils % 1.5 Basophils % 0.4 Nucleated Red Blood Cells % 0.0 Neutrophils # 8.9 H Lymphocytes # 2.0 Monocytes # 0.8 Eosinophils # 0.2 Basophils # 0.1 Nucleated Red Blood Cells # 0.0 Sodium Level 140 Potassium Level 4.8 Chloride Level 99 Carbon Dioxide Level 31 Anion Gap 15 Blood Urea Nitrogen 20 Creatinine 0.93 Glucose Level 92 Calcium Level 9.0 Magnesium Level 1.7 Iron Level 51 Total Iron Binding Capacity 200 L Percent Iron Saturation 26 Total Bilirubin 0.1 L Direct Bilirubin 0.00 Indirect Bilirubin 0.1 Aspartate Amino Transf (AST/SGOT) 25 Alanine Aminotransferase (ALT/SGPT) 29 Alkaline Phosphatase 90 Total Protein 6.8 Albumin 3.5 Globulin 3.30 H Albumin/Globulin Ratio 1.06 Test 12/29/16 12:36 Bedside Glucose 105 Medications Medications Current Medications Ondansetron HCl (Zofran Inj) 4 mg Q6H PRN IV NAUSEA AND/OR VOMITING Last administered on 12/27/16 16:14; Admin Dose 4 MG; Start 12/21/16 at 23:00 Morphine Sulfate (morphine) 2 mg Q4H PRN IV PAIN Last administered on 00:09; Admin Dose 2 MG; Start 12/21/16 at 23:00 Diagnostic Test (Pha) (Accu-Chek) 1 ea 02 XX Last administered on 12/23/16 02: 31; Admin Dose 1 EA; Start 12/22/16 at 02:00 Miscellaneous Information 1 ea NOTE XX ; Start 12/21/16 at 23:00 Glucose (Glutose) 15 gm Q15M PRN PO DECREASED GLUCOSE; Start 12/21/16 at 23:00 Glucose (Glutose) 22.5 gm Q15M PRN PO DECREASED GLUCOSE; Start 12/21/16 at 23: 00 Dextrose (D50w Syringe) 25 ml Q15M PRN IV DECREASED GLUCOSE; Start 12/21/16 at 23:00 Dextrose (D50w Syringe) 50 ml Q15M PRN IV DECREASED GLUCOSE; Start 12/21/16 at 23:00 Glucagon (Glucagen) 1 mg Q15M PRN IM DECREASED GLUCOSE; Start 12/21/16 at 23:00 Glucose (Glutose) 15 gm Q15M PRN BUCCAL DECREASED GLUCOSE; Start 12/21/16 at 23 :00 Aspirin (Halfprin) 81 mg DAILY PO Last administered on 12/28/16 08:46; Admin Dose 81 MG; Start 12/23/16 at 09:00; Status Future Hold Bisacodyl (Dulcolax Supp) 10 mg DAILY PRN [place] CONSTIPATION Last administered on 12/25/16 12:41; Admin Dose 10 MG; Start 12/22/16 at 17:00 Clonidine (Catapres) 0.1 mg DAILY PRN PO HTN; Start 12/22/16 at 17:00 Diphenhydramine HCl (Benadryl) 25 mg BID PRN PO ITCHING; Start 12/22/16 at 17: 00 Docusate Sodium (Colace) 200 mg BID PRN PO CONSTIPATION Last administered on 01:07; Admin Dose 200 MG; Start 12/22/16 at 17:00 Escitalopram Oxalate (Lexapro) 10 mg DAILY PO Last administered on 12/29/16 09:20; Admin Dose 10 MG; Start 12/23/16 at 09:00 EZETIMIBE (Zetia) 10 mg DAILY PO Last administered on 12/29/16 09:19; Admin Dose 10 MG; Start 12/23/16 at 09:00 Furosemide (Lasix) 40 mg DAILY PO Last administered on 12/29/16 09:21; Admin Dose 40 MG; Start 12/23/16 at 09:00 Gabapentin (Neurontin) 300 mg TID PO Last administered on 12/29/16 12:38; Admin Dose 300 MG; Start 12/22/16 at 21:00 Linagliptin (Tradjenta) 5 mg DAILY PO Last administered on 12/29/16 09:19; Admin Dose 5 MG; Start 12/23/16 at 09:00 Metformin HCl (Glucophage) 1,000 mg BID PO Last administered on 12/29/16 09: 20; Admin Dose 1,000 MG; Start 12/22/16 at 21:00 Prednisone (Prednisone) 10 mg DAILY PO Last administered on 12/29/16 09:19; Admin Dose 10 MG; Start 12/23/16 at 09:00 Salmeterol Xinafoate/ Fluticasone (Advair 250/50 Diskus) 1 inh BID INH Last administered on 12/29/16 09:22; Admin Dose 1 INH; Start 12/22/16 at 21:00 Solifenacin (Vesicare) 5 mg DAILY PO Last administered on 12/29/16 09:20; Admin Dose 5 MG; Start 12/23/16 at 09:00 Tiotropium [place] (Spiriva) 1 inh DAILY INH Last administered on 12/29/16 09 :20; Admin Dose 1 INH; Start 12/23/16 at 09:00 Voriconazole (Vfend) 200 mg BID PO Last administered on 12/29/16 09:19; Admin Dose 200 MG; Start 12/22/16 at 21:00 Enoxaparin Sodium (Lovenox) 80 mg BID SC Last administered on 12/29/16 10:05 ; Admin Dose 80 MG; Start 12/22/16 at 21:00 Flecainide Acetate (Tambocor) 150 mg BID PO Last administered on 12/29/16 09: 22; Admin Dose 150 MG; Start 12/22/16 at 21:00 Lorazepam (Ativan) 0.5 mg Q4H PRN PO ANXIETY; Start 12/22/16 at 20:30 Acetaminophen/ Hydrocodone Bitart ([place] (10/325)) 1 tab Q6H PRN PO Pain Last administered on 12/29/16 16:52; Admin Dose 1 TAB; Start 12/23/16 at 15:12 Ibuprofen (Motrin) 600 mg Q6H PRN PO PAIN OR TEMP ABOVE 38C Last administered on 12/28/16 10:19; Admin Dose 600 MG; Start 12/23/16 at 14:00 Divalproex Sodium (Depakote) 125 mg TID PO Last administered on 12/29/16 12: 38; Admin Dose 125 MG; Start 12/23/16 at 21:00 Levofloxacin (Levaquin) 500 mg DAILY@06 PO Last administered on 12/29/16 05: 29; Admin Dose 500 MG; Start 12/25/16 at 06:00 Amoxicillin (Amoxicillin) 500 mg Q6 PO Last administered on 12/29/16 12:38; Admin Dose 500 MG; Start 12/25/16 at 19:00 Lactulose (Enulose) 20 gm DAILY PO Last administered on 12/29/16 09:20; Admin Dose 20 GM; Start 12/26/16 at 09:00 JACK VALLE MD Dec 29, 2016 17:08
== END 2016-12-29 23:44 | disposition short-term general hospital (02) | DRG 291 ==
LOC: E/R 13:36 → TEL 17:19
PROVIDERS: ADMIT Family Medicine; ATTEND Family Medicine
DX: I11.0 Hypertensive heart disease with heart failure (principal); J18.9 Pneumonia, unspecified organism; E87.0 Hyperosmolality and hypernatremia; Z68.44 Body mass index [BMI] 60.0-69.9, adult; K42.0 Umbilical hernia with obstruction, without gangrene; R56.9 Unspecified convulsions; R44.3 Hallucinations, unspecified; N39.0 Urinary tract infection, site not specified; I50.43 Acute on chronic combined systolic (congestive) and diastolic (congestive) heart failure; E83.42 Hypomagnesemia; E66.01 Morbid (severe) obesity due to excess calories; E11.9 Type 2 diabetes mellitus without complications; J44.9 Chronic obstructive pulmonary disease, unspecified; F32.9 Major depressive disorder, single episode, unspecified; K59.00 Constipation, unspecified; M79.3 Panniculitis, unspecified; K21.9 Gastro-esophageal reflux disease without esophagitis; G47.30 Sleep apnea, unspecified; M16.10 Unilateral primary osteoarthritis, unspecified hip; M17.10 Unilateral primary osteoarthritis, unspecified knee; M54.9 Dorsalgia, unspecified; F22 Delusional disorders; R20.2 Paresthesia of skin; B95.2 Enterococcus as the cause of diseases classified elsewhere; D64.9 Anemia, unspecified
CPT/HCPCS: 70486; 71010; 72125; 72131; 72170; 73562; 74000; 74176; 76642; 80048; 80053; 81001; 82270; 82306; 82378; 82668; 82746; 82962; 83090; 83540; 83615; 83735; 83880; 84155; 84165; 84443; 84484; 84560; 85025; 85045; 85610; 85651; 85730; 87040; 87086; 93005; 94640; 94664; 95819; 96374; 96375; J0456; J0696; J1170; J1644; J1650; J1815; J1940; J1956; J2270; J2405; J2916; J3475; J7512; Q9967

== ENCOUNTER 2017-01-12 17:53 | Inpatient (IN) | payer MEDICARE, OTHER ==
[~2017-01-12] VITALS: Ht 167.6 cm; Wt 136.9 kg
[~2017-01-12 17:53] MED LIST changes: -ASPI-664 PO; -ESCI10TA PO; -EZET10TA3 PO; -MTF1000T PO; -OLOP2.5D BOTH EYES; -SULF1TAB31 PO
[2017-01-12 19:52] LABS: BASOPHILS % 0.4 % (0.0-2.0); EOSINOPHILS # 0.3 10^3/ul (0.0-0.5); EOSINOPHILS % 2.9 % (0.0-7.0); HEMATOCRIT 37.4 % (37.0-47.0); HEMOGLOBIN 11.8 g/dl (12.0-16.0); LYMPHOCYTES # 2.5 10^3/ul (0.8-2.9); MEAN CORPUSCULAR HEMOGLOBIN 30.5 pg (29.0-33.0); MEAN CORPUSCULAR HGB CONC 31.6 g/dl (32.0-37.0); MEAN CORPUSCULAR VOLUME 96.6 fl (82.0-101.0); MEAN PLATELET VOLUME 11.8 fl (7.4-10.4); MONOCYTE # 0.8 10^3/ul (0.3-0.9); MONOCYTES % 8.2 % (0.0-11.0); NEUTROPHIL # 5.6 10^3/ul (1.6-7.5); PLATELET COUNT 331 10^3/UL (140-415); RED BLOOD COUNT 3.87 10^6/ul (4.20-5.40); RED CELL DISTRIBUTION WIDTH 14.9 % (11.5-14.5); WHITE BLOOD COUNT 9.2 10^3/ul (4.8-10.8)
[2017-01-12 20:16] LABS: ANION GAP 13 (8-16); BLOOD UREA NITROGEN 8 mg/dl (7-20); CALCIUM 9.2 mg/dl (8.4-10.2); CARBON DIOXIDE 23 mmol/L (21-31); CHLORIDE 109 mmol/L (97-110); CREATININE 0.64 mg/dl (0.44-1.00); GLUCOSE 114 mg/dl (70-220); POTASSIUM 3.4 mmol/L (3.5-5.1); SODIUM 142 mmol/L (135-144)
[2017-01-12] MEDS ORDERED: METF1000 PO (20:20)
[2017-01-12 20:27] LABS: B-TYPE NATRIURETIC PEPTIDE 151 PG/ML (0-450)
[2017-01-12 20:28] LABS: TROPONIN-I < 0.012 ng/ml (0.00-0.12)
--- NOTE | 2017-01-12 20:44 | RADRPT ---
PROCEDURE: XR Chest. CLINICAL INDICATION: Chest pain. TECHNIQUE: Single frontal chest x-ray. COMPARISON: 12/29/2016 FINDINGS: Patient is rotated to the left. Heart is enlarged.. There are atherosclerotic calcifications of the aortic knob. There is diffuse interstitial prominence compatible with CHF. There is asymmetric left perihilar and basilar edema versus infiltrate.. Small left pleural effusion is suspected.. There i s no pneumothorax. Bones are osteopenic. There are degenerative changes of the thoracic spine.. IMPRESSION: Cardiomegaly. CHF. Asymmetric left perihilar and basilar edema versus infiltrate. Probable small lef t pleural effusion. RPTAT: [facility] .Brian Caicedo MD, Date Time Electronically viewed and signed by .Brian Caicedo MD, on 01/12/2017 20:43 .K/
[2017-01-12] MEDS ORDERED: CEFEPIME 2GM/50 ML (PMX) 50 ML IVPB STA (20:46)
[2017-01-12] MEDS ORDERED: VANCOMYCIN 1 GM (PMX) 250 ML IVPB ONE (21:00)
--- NOTE | 2017-01-12 22:05 | ERD ---
ER Documentation Chief Complaint Chief Complaint chest pain x 3-4 days and feeling of 'choking' HPI This is a 76-year-old female presents to the emergency room for evaluation of chest pain, mild shortness of breath. The patient states that she was recently discharged from a different hospital where she was admitted for rectal surgery. This patient states she has had chest pain for the past 3-4 days and states that her chest pain as a pressure-like sensation in the center of her chest with no radiation. Mild associated shortness of breath, no fever no chills no nausea no vomiting no aggravating or relieving factors ROS All systems reviewed and are negative except as per history of present illness. Medications Home Meds Active Scripts Bisacodyl* (Bisacodyl*) 10 Mg Supp, 10 MG IN DAILY Y for CONSTIPATION for 30 Days, #60 SUPP Prov:STONE HERNANDEZ MD 11/23/16 Reported Medications Metformin Hcl* (Metformin Hcl*) 1,000 Mg Tablet, 1000 MG PO WITH BREAKFAST DINNE , #60 TAB NEEDED 01/12/17 Icosapent Ethyl (VASCEPA) 1 Gm Capsule, 1 GM PO DAILY, CAP 09/30/16 Solifenacin* (Vesicare*) 5 Mg Tablet, 5 MG PO DAILY, TAB 09/30/16 Polyethylene Glycol 3350 (Polyethylene Glycol 3350) 255 Gm Powder, 255 GM PO 09/30/16 Linagliptin (TRADJENTA) 5 Mg Tablet, 5 MG PO DAILY, TAB 09/20/16 Clonidine Hcl* (Clonidine Hcl*) 0.1 Mg Tab, 0.1 MG PO DAILY Y for HTN, TAB 09/20/16 Furosemide* (Furosemide*) 40 Mg Tablet, 40 MG PO DAILY, TAB 09/20/16 Gabapentin* (Gabapentin*) 300 Mg Capsule, 300 MG PO NEEDED, #60 CAP 09/20/16 Potassium Chloride* (Potassium Chloride*) 8 Meq Capsule.er, 8 MEQ PO DAILY, CAP 09/20/16 Hydrocodone/Acetaminophen ([place] 10-325 Tablet) 1 Each Tablet, 1 EACH PO Q8H, TAB 09/20/16 Flecainide Acetate* (Flecainide Acetate*) 150 Mg Tablet, 150 MG PO BID, TAB 09/20/16 Diphenhydramine Hcl* (Benadryl*) 25 Mg Cap, 25 MG PO BID Y for ITCHING, CAP 10/21/15 Tiotropium [place]* (Spiriva*) 18 Mcg Cap.w.dev, 1 INH IH DAILY, EA 07/11/14 Salmeterol Xinaf/Fluticasone* (Advair*) 250-50 Diskus Inhaler, 1 INH INH BID, INH 07/11/14 Discontinued Reported Medications Prednisone* (Prednisone*) 10 Mg Tab, 10 MG PO DAILY, TAB TAKE 3TAB FOR 3DAYS, 2TAB FORE 3 DAYS AND 1 TAB DAILY 11/08/16 Discontinued Scripts Docusate Sodium (Dok) 100 Mg Capsule, 200 MG PO BID Y for CONSTIPATION for 14 Days, #30 CAP Prov:STONE HERNANDEZ MD 11/23/16 Voriconazole* (Voriconazole*) 200 Mg Tablet, 200 MG PO BID for 14 Days, #10 TAB Prov:STONE HERNANDEZ MD 11/23/16 Allergies Allergies: Coded Allergies: No Known Allergy (Unverified , 01/12/17) PMhx/Soc History of Surgery: Yes (cholecystectomy 40yrs ago, hernia repair X10 days prior) Anesthesia Reaction: No Hx Neurological Disorder: No Hx Respiratory Disorders: Yes (Asthma) Hx Cardiac Disorders: Yes (CHF,HTN) Hx Psychiatric Problems: No Hx Miscellaneous Medical Probl: Yes (Bed ridden for 11yrs; depression) Hx Alcohol Use: No Hx Substance Use: No Hx Tobacco Use: No Smoking Status: Never smoker Physical Exam Vitals Vital Signs Date Time Temp Pulse Resp B/P Pulse Ox O2 Delivery O2 Flow Rate FiO2 01/12/17 19:11 Nasal Cannula 2 01/12/17 18:31 97.5 75 17 124/66 98 2.0 01/12/17 18:31 97.5 78 17 124/66 98 Physical Exam INITIAL VITAL SIGNS: Reviewed by me GENERAL: The patient is well developed and appropriate for usual state of health in no apparent distress HEENT: Pupils equal, round, and reactive to light. EOMI. There is no scleral icterus. NECK: C-spine is soft and supple, there is no meningismus. There is no cervical lymphadenopathy. LUNGS: Clear to auscultation bilaterally. There are no rales, wheezes or rhonchi. HEART: Regular rate and rhythm, no murmurs, clicks, rubs or gallops. ABDOMEN: Soft, non-tender, non-distended. There are bowel sounds in all four quadrants. No rebound or guarding. EXTREMITIES: There is no peripheral cyanosis or edema. No focal swelling or erythema. NEUROLOGICAL: The patient moves all four extremities with 5/5 strength. Cranial nerves II - XII are intact. Normal gait. Alert and oriented SKIN: There is no apparent rash or petechiae. HEME/LYMPHATIC: There is no evidence of excessive bruising or lymphedema. PSYCHIATRIC: The patient does not appear anxious or depressed. Result Diagram: 01/12/17193401/12/171934 Results 24 hrs Laboratory Tests Test 01/12/17 19:35 White Blood Count 9.210^3/ul Red Blood Count 3.8710^6/ul Hemoglobin 11.8g/dl Hematocrit 37.4% Mean Corpuscular Volume 96.6fl Mean Corpuscular Hemoglobin 30.5pg Mean Corpuscular Hemoglobin Concent 31.6g/dl Red Cell Distribution Width 14.9% Platelet Count 12484^3/UL Mean Platelet Volume 11.8fl Neutrophils % 61.0% Lymphocytes % 27.0% Monocytes % 8.2% Eosinophils % 2.9% Basophils % 0.4% Nucleated Red Blood Cells % 0.0/100WBC Neutrophils # 5.610^3/ul Lymphocytes # 2.510^3/ul Monocytes # 0.810^3/ul Eosinophils # 0.310^3/ul Basophils # 0.010^3/ul Nucleated Red Blood Cells # 0.010^3/ul Sodium Level 142mmol/L Potassium Level 3.4mmol/L Chloride Level 109mmol/L Carbon Dioxide Level 23mmol/L Anion Gap 13 Blood Urea Nitrogen 8mg/dl Creatinine 0.64mg/dl Glucose Level 114mg/dl Calcium Level 9.2mg/dl Troponin I < 0.012ng/ml B-Type Natriuretic Peptide 151PG/ML Current Medications Medications (Trade) Dose Ordered Sig/Margoth Route PRN Reason Start Time Stop Time Status Last Admin Dose Admin Cefepime HCl 50 ml @ 100 mls/hr ONCE STAT IVPB 01/12/17 20:46 01/12/17 21:15 DC 01/12/17 22:01 Vancomycin HCl (Vancocin) 250 ml @ 125 mls/hr ONCE ONCE IVPB 01/12/17 21:00 01/12/17 22:59 Ondansetron HCl (Zofran Inj) 4 mg ER BRIDGE PRN IV NAUSEA AND/OR VOMITING 01/12/17 22:30 01/13/17 22:29 Acetaminophen (Tylenol Tab) 650 mg ER BRIDGE PRN PO MILD PAIN/FEVER 01/12/17 22:30 01/13/17 22:29 Procedures/MDM EKG: Rate/Rhythm: [Normal Sinus Rhythm] QRS, ST, T-waves: [No changes consistent w/ acute ischemia] Impression: [No evidence of ischemia or arrhythmia] Chest X-ray 1V Interpreted by me: Soft Tissue: No acute abnormalities Bones: No acute abnormalities Mediastinum/Cardiac Silhouette/Lungs: Left lobe pneumonia This 76-year-old female presents to the ER for evaluation of chest pain. The patient does have multiple risk factors, her first troponin is negative. Her EKG is nonischemic. Her chest x-ray does show possible left lobe infiltrate. This patient has had a previous left lobe pneumonia. Given the fact that she has had left lobe pneumonia and had mild chest discomfort with mild shortness of breath the patient was started on vancomycin and cefepime. She will be admitted to her primary care physician Dr. chu who is in agreement with the plan of care for admission at this time on the telemetry floor Departure Diagnosis: Primary Impression: Chest pain Additional Impression: Left lower lobe pneumonia Condition: Stable MALDONADOANNITA BRIONES Jan 12, 2017 22:05
[2017-01-12] MEDS ORDERED: ACETAMINOPHEN 325 MG TAB PO PRN (22:30)
[2017-01-12] MEDS ORDERED: ONDANSETRON 4 MG INJ IV PRN (22:30)
[2017-01-12 23:12] VITALS: TEMP 98
[2017-01-13] VITALS (14 sets, daily range): BP systolic 112–159; BP diastolic 55–75; PULSE 66–78; RESP 16–21; Ht 167.6 cm; Wt 136.9 kg
[2017-01-13] MEDS ORDERED: VANCOMYCIN 1 GM (PMX) 250 ML IVPB SCH (00:30)
[2017-01-13] MEDS ORDERED: VANCOMYCIN IV PER PHARMACY XX SCH (00:30)
[2017-01-13 01:24] LABS: IRON 23 ug/dl (35-150)
[2017-01-13 01:29] LABS: CREATINE KINASE < 20 IU/L (23-200)
[2017-01-13 01:34] LABS: TOTAL IRON BINDING CAPACITY 188 ug/dl (241-421)
[2017-01-13 01:37] LABS: CK-MB 0.52 ng/ml (0.0-2.4); TROPONIN-I 0.013 ng/ml (0.00-0.12)
[2017-01-13] MEDS: ALBUTEROL/IPRATROPIUM (NEB) 3 ML AMP HHN SCH ×4 (02:19→23:58)
[2017-01-13] MEDS: HYDROCODONE/APAP (10/325) TAB PO PRN ×3 (06:37→20:45)
[2017-01-13] MEDS: PANTOPRAZOLE (EC) 40 MG TAB PO SCH (06:37)
[2017-01-13 07:09] LABS: ADD UMIC YES; UR ASCORBIC ACID NEGATIVE (NEGATIVE); UR BACTERIA MODERATE /HPF (NONE SEEN); UR BILIRUBIN (Dip) NEGATIVE (NEGATIVE); UR BLOOD (Dip) NEGATIVE (NEGATIVE); UR CLARITY CLOUDY (CLEAR); UR COLOR YELLOW (YELLOW); UR GLUCOSE (Dip) NEGATIVE (NEGATIVE); UR KETONES (Dip) NEGATIVE (NEGATIVE); UR LEUKOCYTE ESTERASE (Dip) NEGATIVE Leu/ul (NEGATIVE); UR MUCUS FEW /HPF (NONE SEEN); UR NITRITE (Dip) NEGATIVE (NEGATIVE); UR NONSQUAMOUS EPITHELIAL CELL 1 /HPF (NONE SEEN); UR RBC 2 /HPF (0-5); UR SPECIFIC GRAVITY (Dip) 1.014 (1.003-1.030); UR SQUAMOUS EPITHELIAL CELL MODERATE /HPF (FEW); UR TOTAL PROTEIN (Dip) NEGATIVE (NEGATIVE); UR UROBILINOGEN (Dip) NEGATIVE (NEGATIVE)
[2017-01-13] MEDS ORDERED: BISACODYL 10 MG SUPP PR PRN (08:00)
[2017-01-13] MEDS: metFORMIN 500 MG TAB PO SCH ×2 (08:00→18:00)
[2017-01-13] MEDS ORDERED: DIPHENHYDRAMINE 25 MG CAP PO PRN (08:00)
[2017-01-13 08:28] LABS: BASOPHIL # 0.1 10^3/ul (0.0-0.1); BASOPHILS % 0.6 % (0.0-2.0); EOSINOPHILS # 0.3 10^3/ul (0.0-0.5); EOSINOPHILS % 3.8 % (0.0-7.0); HEMATOCRIT 35.8 % (37.0-47.0); HEMOGLOBIN 11.1 g/dl (12.0-16.0); LYMPHOCYTES # 1.8 10^3/ul (0.8-2.9); LYMPHOCYTES % 22.7 % (15.0-51.0); MEAN CORPUSCULAR HEMOGLOBIN 30.1 pg (29.0-33.0); MEAN PLATELET VOLUME 12.2 fl (7.4-10.4); MONOCYTE # 0.7 10^3/ul (0.3-0.9); MONOCYTES % 9.2 % (0.0-11.0); NEUTROPHIL # 4.9 10^3/ul (1.6-7.5); NEUTROPHILS % 63.2 % (39.0-77.0); PLATELET COUNT 303 10^3/UL (140-415); RED BLOOD COUNT 3.69 10^6/ul (4.20-5.40); WHITE BLOOD COUNT 7.8 10^3/ul (4.8-10.8)
[2017-01-13] MEDS ORDERED: GLUCAGON 1 MG INJ IM PRN (08:30)
[2017-01-13] MEDS ORDERED: [UNRECOGNIZED DRUG - REMARK] XX ONE (08:30)
[2017-01-13] MEDS ORDERED: HYPOGLYCEMIA PROTOCOL when Glucose is <70 mg/dL or symptomatic <90 mg/dL. XX ONE (08:30)
[2017-01-13] MEDS ORDERED: MAGNESIUM SULFATE 2 GM/50 ML 50 ML IVPB ONE ×2 (08:30→09:00)
[2017-01-13] MEDS ORDERED: GLUCOSE GEL 15 GRAM TUBE PO PRN ×2 (08:30)
[2017-01-13] MEDS ORDERED: DEXTROSE 50% 50 ML SYRINGE IV PRN ×2 (08:30)
[2017-01-13] MEDS ORDERED: GLUCOSE GEL 15 GRAM TUBE BUCCAL PRN (08:30)
[2017-01-13] MEDS ORDERED: CLONIDINE 0.1 MG/24 HR PATCH TRANSDERM SCH (08:30)
--- NOTE | 2017-01-13 08:51 | HP ---
Date/Time of Note Date/Time of Note DATE: 01/13/17 TIME: 08:47 Assessment/Plan VTE Prophylaxis VTE Prophylaxis Intervention: ambulation, anti-embolic stocking VTE Contraindication Reason: peripheral vascular disease Lines/Catheters IV Catheter Type (from Nrsg): Peripheral IV Central line still needed: No Urinary Cath still in place: No Reason Cath still needed: urinary retention HPI/ROS Admit Date/Time Admit Date/Time Jan 12, 2017 at 22:02 Hx of Present Illness I can't move my right shoulder; I have bad pain in my neck. Severe weakness, perspiration, sob, confusion. 2 weeks with constipation, abdominal pain on and off. Worsening of forgetfulness with the the fear of . I went home after the surgery on Tuesday but never felt relaxed. My bed is very uncomfortable at home. I can't sleep. I see people, I hear voices. I am fearful. This patient states she has had chest pain for the past 3-4 days and states that her chest pain as a pressure-like sensation in the center of her chest with no radiation. "I never get enough oxygen". ROS The moment I approached the patient she was sleeping with no visible signs of distress. After she realized I am nearby she expressed above complains. Constitutional: chills, diaphoresis, disoriented, nausea, poor po, weight change, No fatigue, No febrile, No improved, No no complaints, No other Eyes: discharge, visual change, No no complaints, No other, No pain, No redness ENT: congestion, dysphagia, No bleeding, No discharge, No no complaints, No other, No pain, No sore throat Respiratory: cough, shortness of breath, No no complaints, No other, No pain, No pleuritic pain, No sputum, No wheezing Cardiovascular: chest pain, lightheadedness, orthopenea, No edema, No no complaints, No other, No palpitations, No paroxysmal nocturnal dyspnea Gastrointestinal: constipation, decreased appetite, flatus, pain, passing stool Genitourinary: dysuria, flank pain, No bleeding, No discharge, No hematuria, No no complaints, No other Musculoskeletal: back pain, bone/joint pain, neck pain (unable to move right shoulder.), restricted range of motion, No no complaints, No other, No swelling Skin: erythema, pruritis, rash (inguinal area.), No bruising, No laceration, No no complaints, No other, No skin lesions Neurologic: confusion, dizziness, headache, No focal-weakness, No no complaints, No other, No seizure, No syncope Endocrine: dry skin, polydypsia, temp intolerance, weight change Lymphatic: tender nodes Immunologic: pruritis (low abdominal aareas mainly.) PMH/Family/Social Past Medical History Medical History: angina, colitis, congestive heart failure, coronary artery disease, deep vein thrombosis, diabetes, gallstones, GERD, GI bleed, high cholesterol, hypertension, hypothyroid, pancreatitis, renal disease, urinary tract infection Past Surgical History Past Surgical Hx: cholecystectomy, endoscopy, other Family History Significant Family History: heart disease, diabetes Social History Alcohol Use: none Smoking Status: Former smoker Drug Use: none Exam/Review of Systems Vital Signs Vitals Vital Signs Date Time Temp Pulse Resp B/P Pulse Ox O2 Delivery O2 Flow Rate FiO2 01/13/17 08:20 72 01/13/17 08:08 99.1 20 129/69 99 01/13/17 05:48 Nasal Cannula 2.0 Intake and Output 01/12/17 01/12/17 01/13/17 15:00 23:00 07:00 Intake Total 50 ml Balance 50 ml Exam Constitutional: alert, distress (afer woke up.), frail, oriented, other ( morbidly obese.), well developed Psych: anxiety, confusion, depression, No nl mood/affect, No no complaints, No other, No suicidal Head: atraumatic, normocephalic, No hematomas, No lacerations, No other Eyes: EOMI, PERRL, nl lids ENMT: nl external ears & nose, nl lips & teeth (dentures. Atrophic gums.), tympanic membranes, No intubated, No mucosa pink and moist, No nl nasal mucosa & septum, No other Neck: bruits, jvd, nuchal rigidity (restricted movements in all direction.) , thyromegaly Respiratory: clear to auscultation, congested cough, diminished breath sounds, respirations Cardiovascular: bruits, edema (trace.), jugular venous distention (JVD), nl pulses, regular rate and rhythm, systolic murmur Gastrointestinal: bowel sounds, distended, nl liver, spleen, other (pannus not changed with dark erythematose trophic changes of t he lower abdominal very thick content.), soft, surgical scars (left sided lower abdominal new scar well healed for a repair of incarcerated umbilical hernia, done about 10 days ago in [facility] tender Genitourinary - Female: CVA tenderness, nl adnexae, nl external genitalia Musculoskeletal: joint tenderness (right shoulder almost totally frozen.), muscle tone, muscle weakness (severe.), nl gait and stance (more than 10 years not able to get up from the bed. Extreame deconditioning.), range of motion Extremities: edema, normal pulses, pitting pedal edema (trace.) Labs Result Diagram: 01/13/1771301/12/171934 Medications Medications Current Medications Enoxaparin Sodium (Lovenox) 80 mg BID SC ; Start 01/13/17 at 09:00 Acetaminophen/ Hydrocodone Bitart ([place] (10/325)) 1 tab Q6H PRN PO PAIN Last administered on 01/13/17 06:37; Admin Dose 1 TAB; Start 01/13/17 at 00:30 Meloxicam (Mobic) 15 mg DAILY PO ; Start 01/13/17 at 09:00 Pantoprazole (Protonix Tab) 40 mg DAILY@06 PO Last administered on 01/13/17 06:37; Admin Dose 40 MG; Start 01/13/17 at 06:00 Atorvastatin Calcium (Lipitor) 20 mg HS PO ; Start 01/13/17 at 21:00 EZETIMIBE (Zetia) 10 mg DAILY PO ; Start 01/13/17 at 09:00 Docusate Sodium (Colace) 200 mg BID PO ; Start 01/13/17 at 09:00 Polyethylene Glycol (Miralax) 17 gm DAILY NGT ; Start 01/13/17 at 09:00 Bisacodyl (Dulcolax Supp) 10 mg DAILY PRN ID CONSTIPATION; Start 01/13/17 at 08:00 Diphenhydramine HCl (Benadryl) 25 mg BID PRN PO ITCHING; Start 01/13/17 at 08: 00 Furosemide (Lasix) 40 mg DAILY PO ; Start 01/13/17 at 09:00 Gabapentin (Neurontin) 300 mg BID PO ; Start 01/13/17 at 09:00 Linagliptin (Tradjenta) 5 mg DAILY PO ; Start 01/13/17 at 09:00 Potassium Chloride (Micro-K) 8 meq DAILY PO ; Start 01/13/17 at 09:00 Salmeterol Xinafoate/ Fluticasone (Advair 250/50 Diskus) 1 inh BID INH ; Start 01/13/17 at 09:00 Solifenacin (Vesicare) 5 mg DAILY PO ; Start 01/13/17 at 09:00 Miscellaneous Information 1 gm DAILY PO ; Start 01/13/17 at 09:00; Status UNV Tiotropium [place] (Spiriva) 1 inh DAILY INH ; Start 01/13/17 at 09:00 Insulin Aspart (Novolog Insulin Pen) NOVOLOG *MILD* ALGORITHM Q6 SC ; Start at 12:00 Clonidine HCl 1 patch 1 patch Q7D TRANSDERM ; Start 01/13/17 at 08:30 Magnesium Sulfate (Magnesium Sulfate 2 Gm/50 ml) 50 ml @ 25 mls/hr ONCE ONCE IVPB ; Start 01/14/17 at 08:30; Stop 01/14/17 at 10:29 Diagnostic Test (Pha) (Accu-Chek) 1 ea Q6 XX ; Start 01/14/17 at 02:00 Miscellaneous Information 1 ea NOTE XX ; Start 01/13/17 at 08:30 Glucose (Glutose) 15 gm Q15M PRN PO DECREASED GLUCOSE; Start 01/13/17 at 08:30 Glucose (Glutose) 22.5 gm Q15M PRN PO DECREASED GLUCOSE; Start 01/13/17 at 08: 30 Dextrose (D50w Syringe) 25 ml Q15M PRN IV DECREASED GLUCOSE; Start 01/13/17 at 08:30 Dextrose (D50w Syringe) 50 ml Q15M PRN IV DECREASED GLUCOSE; Start 01/13/17 at 08:30 Glucagon (Glucagen) 1 mg Q15M PRN IM DECREASED GLUCOSE; Start 01/13/17 at 08: 30 Glucose (Glutose) 15 gm Q15M PRN BUCCAL DECREASED GLUCOSE; Start 01/13/17 at 08:30 Miscellaneous Information (*Order Clarification Bulletin) Icosapent Ethyl ( Vascepa... Q8H XX ; Start 01/13/17 at 09:00 Flecainide Acetate 150 mg 150 mg BID PO ; Start 01/13/17 at 09:00 Vancomycin HCl/ Sodium Chloride (Vancocin/NS) 250 ml @ 83.333 mls/ hr Q24H IVPB ; Start 01/13/17 at 09:00 STONE HERNANDEZ MD Jan 13, 2017 08:51
[2017-01-13] MEDS ORDERED: FLECAINIDE 50 MG TAB PO SCH (09:00)
[2017-01-13] MEDS: [UNRECOGNIZED DRUG - OTHER] XX SCH ×2 (09:00→17:00)
[2017-01-13] MEDS: MELOXICAM 15 MG TAB PO SCH (09:00)
[2017-01-13] MEDS: SOLIFENACIN 5 MG TAB PO SCH (09:00)
[2017-01-13] MEDS ORDERED: FUROSEMIDE 40 MG TAB PO SCH (09:00)
[2017-01-13] MEDS: LINAGLIPTIN 5 MG TABLET PO SCH (09:00)
[2017-01-13 09:01] LABS: CREATINE KINASE < 20 IU/L (23-200)
[2017-01-13 09:03] LABS: ALBUMIN/GLOBULIN RATIO 1.03; BILIRUBIN,INDIRECT 0.1 mg/dl (0-1.1); BILIRUBIN,TOTAL 0.1 mg/dl (0.2-1.3); CALCIUM 9.1 mg/dl (8.4-10.2); CREATININE 0.63 mg/dl (0.44-1.00); POTASSIUM 3.6 mmol/L (3.5-5.1); TOTAL PROTEIN 5.9 g/dl (6.1-8.1)
[2017-01-13 09:04] LABS: CK-MB 0.54 ng/ml (0.0-2.4); TROPONIN-I 0.013 ng/ml (0.00-0.12)
[2017-01-13] MEDS: FLECAINIDE 100 MG TAB PO SCH ×2 (09:50→20:35)
[2017-01-13] MEDS: GABAPENTIN 300 MG CAP PO SCH ×2 (09:51→20:35)
[2017-01-13] MEDS: DOCUSATE SODIUM 100 MG CAP PO SCH ×2 (09:51→20:35)
[2017-01-13] MEDS: EZETIMIBE 10 MG TAB PO SCH (09:51)
[2017-01-13] MEDS: POTASSIUM CHLORIDE (SR) 8 MEQ CAP PO SCH (09:54)
[2017-01-13] MEDS: POLYETHYLENE GLYCOL 17 GM PACKET NGT SCH (09:56)
[2017-01-13] MEDS: TIOTROPIUM 18 MCG CAPSULE INHA DEV INH SCH (09:56)
[2017-01-13] MEDS: SALMETEROL/FLUTICASONE 250/50 INHA INH SCH ×2 (09:56→22:19)
[2017-01-13] MEDS: ENOXAPARIN 80 MG/0.8 ML SYG SC SCH ×2 (09:58→20:36)
--- NOTE | 2017-01-13 10:03 | CONS ---
Date/Time of Note Date/Time of Note DATE: 01/13/17 TIME: 09:59 Assessment/Plan Assessment/Plan Chief Complaint/Hosp Course Acute on chronic diastolic heart failure: EF preserved. Mild CHF by exam ( difficult) and CXR Chronic incarcerated ventral hernia s/p recent surgical repair H/o unknown cardiac arrhythmia: On flecainide chronically. DM HTN Bedbound state -ASA -increase to lasix 20mg IV BID for now -flecainide -replete lytes Problems: Consultation Date/Type/Reason Admit Date/Time Jan 12, 2017 at 22:02 Date of Consultation: Jan 13, 2017 Type of Consultation: Cardiology Reason for Consultation CHF Referring Provider: STONE HERNANDEZ MD Hx of Present Illness 76 yo F with a h/o diastolic heart failure, cardiac arrhythmia (unclear details ) on flecainide, DM, HTN, HL, bedbound state for 10+ years, recent abdominal hernia repair at [facility], who presented secondary to weakness, SOB, right shoulder pain. The pt was just discharged after her surgery and was home for only 3 days . She is not able to verbalize exactly what is wrong except she feels like "her heart is giving out". She also complains of constipation. per hPI Past Medical History per HPI Medical History: angina, colitis, congestive heart failure, coronary artery disease, deep vein thrombosis, diabetes, gallstones, GERD, GI bleed, high cholesterol, hypertension, hypothyroid, pancreatitis, renal disease, urinary tract infection Past Surgical History Past Surgical Hx: cholecystectomy, endoscopy, other Social History Alcohol Use: none Smoking Status: Former smoker Drug Use: none Exam/Review of Systems Vital Signs Vitals Vital Signs Date Time Temp Pulse Resp B/P Pulse Ox O2 Delivery O2 Flow Rate FiO2 01/13/17 09:47 96 2.0 01/13/17 09:47 75 20 Nasal Cannula 01/13/17 08:08 99.1 129/69 Intake and Output 01/12/17 01/12/17 01/13/17 15:00 23:00 07:00 Intake Total 50 ml Balance 50 ml Exam Constitutional: alert, oriented Psych: anxiety Head: atraumatic, normocephalic Neck: No jvd (difficult to examine but appears to be 7-8cm) Respiratory: diminished breath sounds, No clear to auscultation Cardiovascular: edema (trace), regular rate and rhythm, No systolic murmur Gastrointestinal: non-tender, other (surgical healing wound noted ), soft Musculoskeletal: nl extremities to inspection Neurological: nl mental status, nl speech Skin: No rash or lesions Results Result Diagram: 01/13/1714 01/13/17 0714 Results 24 hrs Laboratory Tests Test 01/12/17 19:35 01/12/17 21:37 01/12/17 22:56 01/13/17 00:54 White Blood Count 9.2 # Red Blood Count 3.87 L Hemoglobin 11.8 L Hematocrit 37.4 Mean Corpuscular Volume 96.6 Mean Corpuscular Hemoglobin 30.5 Mean Corpuscular Hemoglobin Concent 31.6 L Red Cell Distribution Width 14.9 H Platelet Count 331 # Mean Platelet Volume 11.8 H Neutrophils % 61.0 Lymphocytes % 27.0 Monocytes % 8.2 Eosinophils % 2.9 Basophils % 0.4 Nucleated Red Blood Cells % 0.0 Neutrophils # 5.6 Lymphocytes # 2.5 Monocytes # 0.8 Eosinophils # 0.3 Basophils # 0.0 Nucleated Red Blood Cells # 0.0 Sodium Level 142 Potassium Level 3.4 L Chloride Level 109 Carbon Dioxide Level 23 Anion Gap 13 Blood Urea Nitrogen 8 Creatinine 0.64 Glucose Level 114 Calcium Level 9.2 Troponin I < 0.012 0.013 B-Type Natriuretic Peptide 151 Lactic Acid Level 1.2 Urine Color YELLOW Urine Clarity CLOUDY A Urine pH 6.0 Urine Specific [place] 1.014 Urine Ketones NEGATIVE Urine Nitrite NEGATIVE Urine Bilirubin NEGATIVE Urine Urobilinogen NEGATIVE Urine Leukocyte Esterase NEGATIVE Urine Microscopic RBC 2 Urine Microscopic WBC 34 H Urine Squamous Epithelial Cells MODERATE Urine Bacteria MODERATE Urine Mucus FEW A Urine Hemoglobin NEGATIVE Urine Glucose NEGATIVE Urine Total Protein NEGATIVE Magnesium Level 1.5 L Iron Level 23 L Total Iron Binding Capacity 188 L Percent Iron Saturation 12 L Creatine Kinase < 20 L Creatine Kinase Index Creatinine Kinase MB (Mass) 0.52 Test 01/13/17 07:14 01/13/17 08:28 White Blood Count 7.8 Red Blood Count 3.69 L Hemoglobin 11.1 L Hematocrit 35.8 L Mean Corpuscular Volume 97.0 Mean Corpuscular Hemoglobin 30.1 Mean Corpuscular Hemoglobin Concent 31.0 L Red Cell Distribution Width 15.0 H Platelet Count 303 Mean Platelet Volume 12.2 H Neutrophils % 63.2 Lymphocytes % 22.7 Monocytes % 9.2 Eosinophils % 3.8 Basophils % 0.6 Nucleated Red Blood Cells % 0.0 Neutrophils # 4.9 Lymphocytes # 1.8 Monocytes # 0.7 Eosinophils # 0.3 Basophils # 0.1 Nucleated Red Blood Cells # 0.0 Sodium Level 143 Potassium Level 3.6 Chloride Level 110 Carbon Dioxide Level 23 Anion Gap 14 Blood Urea Nitrogen 7 Creatinine 0.63 Glucose Level 121 Calcium Level 9.1 Total Bilirubin 0.1 L Direct Bilirubin 0.00 Indirect Bilirubin 0.1 Aspartate Amino Transf (AST/SGOT) 16 Alanine Aminotransferase (ALT/SGPT) 28 Alkaline Phosphatase 77 Creatine Kinase < 20 L Creatine Kinase Index Creatinine Kinase MB (Mass) 0.54 Troponin I 0.013 Total Protein 5.9 L Albumin 3.0 L Globulin 2.90 Albumin/Globulin Ratio 1.03 Thyroid Stimulating Hormone (TSH) Pending Bedside Glucose 117 Medications Medications Current Medications Enoxaparin Sodium (Lovenox) 80 mg BID SC Last administered on 01/13/17 09:58 ; Admin Dose 80 MG; Start 01/13/17 at 09:00 Acetaminophen/ Hydrocodone Bitart ([place] (10/325)) 1 tab Q6H PRN PO PAIN Last administered on 01/13/17 06:37; Admin Dose 1 TAB; Start 01/13/17 at 00:30 Meloxicam (Mobic) 15 mg DAILY PO ; Start 01/13/17 at 09:00 Pantoprazole (Protonix Tab) 40 mg DAILY@06 PO Last administered on 01/13/17 06:37; Admin Dose 40 MG; Start 01/13/17 at 06:00 Atorvastatin Calcium (Lipitor) 20 mg HS PO ; Start 01/13/17 at 21:00 EZETIMIBE (Zetia) 10 mg DAILY PO Last administered on 01/13/17 09:51; Admin Dose 10 MG; Start 01/13/17 at 09:00 Docusate Sodium (Colace) 200 mg BID PO Last administered on 01/13/17 09:51; Admin Dose 200 MG; Start 01/13/17 at 09:00 Polyethylene Glycol (Miralax) 17 gm DAILY NGT Last administered on 01/13/17 09:56; Admin Dose 17 GM; Start 01/13/17 at 09:00 Bisacodyl (Dulcolax Supp) 10 mg DAILY PRN ME CONSTIPATION; Start 01/13/17 at 08:00 Diphenhydramine HCl (Benadryl) 25 mg BID PRN PO ITCHING; Start 01/13/17 at 08: 00 Furosemide (Lasix) 40 mg DAILY PO Last administered on 01/13/17 09:56; Admin Dose 40 MG; Start 01/13/17 at 09:00 Gabapentin (Neurontin) 300 mg BID PO Last administered on 01/13/17 09:51; Admin Dose 300 MG; Start 01/13/17 at 09:00 Linagliptin (Tradjenta) 5 mg DAILY PO ; Start 01/13/17 at 09:00 Potassium Chloride (Micro-K) 8 meq DAILY PO Last administered on 01/13/17 09: 54; Admin Dose 8 MEQ; Start 01/13/17 at 09:00 Salmeterol Xinafoate/ Fluticasone (Advair 250/50 Diskus) 1 inh BID INH Last administered on 01/13/17 09:56; Admin Dose 1 INH; Start 01/13/17 at 09:00 Solifenacin (Vesicare) 5 mg DAILY PO ; Start 01/13/17 at 09:00 Miscellaneous Information 1 gm DAILY PO ; Start 01/13/17 at 09:00; Status UNV Tiotropium [place] (Spiriva) 1 inh DAILY INH Last administered on 01/13/17 09 :56; Admin Dose 1 INH; Start 01/13/17 at 09:00 Insulin Aspart (Novolog Insulin Pen) NOVOLOG *MILD* ALGORITHM Q6 SC ; Start at 12:00 Clonidine HCl 1 patch 1 patch Q7D TRANSDERM Last administered on 01/13/17 09: 54; Admin Dose 1 PATCH; Start 01/13/17 at 08:30 Magnesium Sulfate (Magnesium Sulfate 2 Gm/50 ml) 50 ml @ 25 mls/hr ONCE ONCE IVPB ; Start 01/14/17 at 08:30; Stop 01/14/17 at 10:29 Diagnostic Test (Pha) (Accu-Chek) 1 ea Q6 XX ; Start 01/14/17 at 02:00 Miscellaneous Information 1 ea NOTE XX ; Start 01/13/17 at 08:30 Glucose (Glutose) 15 gm Q15M PRN PO DECREASED GLUCOSE; Start 01/13/17 at 08:30 Glucose (Glutose) 22.5 gm Q15M PRN PO DECREASED GLUCOSE; Start 01/13/17 at 08: 30 Dextrose (D50w Syringe) 25 ml Q15M PRN IV DECREASED GLUCOSE; Start 01/13/17 at 08:30 Dextrose (D50w Syringe) 50 ml Q15M PRN IV DECREASED GLUCOSE; Start 01/13/17 at 08:30 Glucagon (Glucagen) 1 mg Q15M PRN IM DECREASED GLUCOSE; Start 01/13/17 at 08: 30 Glucose (Glutose) 15 gm Q15M PRN BUCCAL DECREASED GLUCOSE; Start 01/13/17 at 08:30 Miscellaneous Information (*Order Clarification Bulletin) Icosapent Ethyl ( Vascepa... Q8H XX ; Start 01/13/17 at 09:00 Flecainide Acetate 150 mg 150 mg BID PO Last administered on 01/13/17 09:50; Admin Dose 150 MG; Start 01/13/17 at 09:00 Vancomycin HCl 1.5 gm/Sodium Chloride 250 ml @ 83.333 mls/ hr Q24H IVPB ; Start 01/13/17 at 09:00 Magnesium Sulfate 50 ml @ 25 mls/hr ONCE ONCE IVPB Last administered on 09:56; Admin Dose 25 MLS/HR; Start 01/13/17 at 09:00; Stop 01/13/17 at 10 :59 Ferric Sodium Gluconate Complex/ Sodium Chloride (Ferrlecit/NS) 110 ml @ 110 mls/hr Q24H IVPB ; Start 01/13/17 at 10:30; Stop 01/17/17 at 11:29 KEVIN CHOU Jan 13, 2017 10:03
[2017-01-13] MEDS: VANCOMYCIN 1.5 GM in SOD CHLORIDE 0.9% 250 ML IVPB SCH (11:10)
[2017-01-13] MEDS: INSULIN ASPART [NOVOLOG] 3 ML PEN SC SCH ×2 (12:00→17:48)
[2017-01-13 12:45] LABS: THYROID STIMULATING HORMONE 1.26 MIU/L (0.465-4.680)
[2017-01-13] MEDS: SOD FERRIC GLUC COMPLX 125 MG in SOD CHLORIDE 0.9% 100 ML IVPB SCH (14:59)
--- NOTE | 2017-01-13 17:24 | CONS ---
Date/Time of Note Date/Time of Note DATE: 01/13/17 TIME: 17:19 Assessment/Plan Assessment/Plan Chief Complaint/Hosp Course ANEMIA- N CYTIC WITH INCREASED RDW LOOKS COMPENSATED CONT TO MONITOR BLOOD COUNT CLOSELY MONITOR FOR BLEEDING AND HEMOLYSIS HYPERCOAGULABLE STATE WITH HX DVT CONT LOVENOX h/o diastolic heart failure, cardiac arrhythmia (unclear details) on flecainide, DM, HTN, HL, bedbound state for 10+ years, recent abdominal hernia repair Problems: Consultation Date/Type/Reason Admit Date/Time Jan 12, 2017 at 22:02 Date of Consultation: Jan 13, 2017 Type of Consultation: HEMEONC Reason for Consultation ANEMIA Referring Provider: STONE HERNANDEZ MD Hx of Present Illness 76 yo F with a h/o diastolic heart failure, cardiac arrhythmia (unclear details ) on flecainide, DM, HTN, HL, bedbound state for 10+ years, recent abdominal hernia repair at [facility], who presented secondary to weakness, SOB, right shoulder pain. The pt was just discharged after her surgery and was home for only 3 days . She is not able to verbalize exactly what is wrong except she feels like "her heart is giving out". She also complains of constipation. per hPI i was asked to f-up re anemia Past Medical History per HPI Medical History: angina, colitis, congestive heart failure, coronary artery disease, deep vein thrombosis, diabetes, gallstones, GERD, GI bleed, high cholesterol, hypertension, hypothyroid, pancreatitis, renal disease, urinary tract infection, chronic anemia Past Surgical History Past Surgical Hx: cholecystectomy, endoscopy, other Social History Alcohol Use: none Smoking Status: Former smoker Drug Use: none Past Medical History Medical History: angina, colitis, congestive heart failure, coronary artery disease, deep vein thrombosis, diabetes, gallstones, GERD, GI bleed, high cholesterol, hypertension, hypothyroid, pancreatitis, renal disease, urinary tract infection Past Surgical History Past Surgical Hx: cholecystectomy, endoscopy, other Social History Alcohol Use: none Smoking Status: Former smoker Drug Use: none Exam/Review of Systems Vital Signs Vitals Vital Signs Date Time Temp Pulse Resp B/P Pulse Ox O2 Delivery O2 Flow Rate FiO2 01/13/17 16:22 72 01/13/17 16:20 98.0 20 112/55 95 01/13/17 09:47 2.0 01/13/17 09:47 Nasal Cannula Intake and Output 01/12/17 01/12/17 01/13/17 15:00 23:00 07:00 Intake Total 50 ml Balance 50 ml Exam Constitutional: alert, oriented Psych: anxiety Head: atraumatic, normocephalic Neck: No jvd (difficult to examine but appears to be 7-8cm) Respiratory: diminished breath sounds, No clear to auscultation Cardiovascular: edema (trace), regular rate and rhythm, No systolic murmur Gastrointestinal: non-tender, other (surgical healing wound noted ), soft Musculoskeletal: nl extremities to inspection Neurological: nl mental status, nl speech Skin: No rash or lesions Results Result Diagram: 01/13/1714 01/13/1714 Results 24 hrs Laboratory Tests Test 01/12/17 19:35 01/12/17 21:37 01/12/17 22:56 01/13/17 00:54 White Blood Count 9.2 # Red Blood Count 3.87 L Hemoglobin 11.8 L Hematocrit 37.4 Mean Corpuscular Volume 96.6 Mean Corpuscular Hemoglobin 30.5 Mean Corpuscular Hemoglobin Concent 31.6 L Red Cell Distribution Width 14.9 H Platelet Count 331 # Mean Platelet Volume 11.8 H Neutrophils % 61.0 Lymphocytes % 27.0 Monocytes % 8.2 Eosinophils % 2.9 Basophils % 0.4 Nucleated Red Blood Cells % 0.0 Neutrophils # 5.6 Lymphocytes # 2.5 Monocytes # 0.8 Eosinophils # 0.3 Basophils # 0.0 Nucleated Red Blood Cells # 0.0 Sodium Level 142 Potassium Level 3.4 L Chloride Level 109 Carbon Dioxide Level 23 Anion Gap 13 Blood Urea Nitrogen 8 Creatinine 0.64 Glucose Level 114 Calcium Level 9.2 Troponin I < 0.012 0.013 B-Type Natriuretic Peptide 151 Lactic Acid Level 1.2 Urine Color YELLOW Urine Clarity CLOUDY A Urine pH 6.0 Urine Specific [place] 1.014 Urine Ketones NEGATIVE Urine Nitrite NEGATIVE Urine Bilirubin NEGATIVE Urine Urobilinogen NEGATIVE Urine Leukocyte Esterase NEGATIVE Urine Microscopic RBC 2 Urine Microscopic WBC 34 H Urine Squamous Epithelial Cells MODERATE Urine Bacteria MODERATE Urine Mucus FEW A Urine Hemoglobin NEGATIVE Urine Glucose NEGATIVE Urine Total Protein NEGATIVE Magnesium Level 1.5 L Iron Level 23 L Total Iron Binding Capacity 188 L Percent Iron Saturation 12 L Creatine Kinase < 20 L Creatine Kinase Index Creatinine Kinase MB (Mass) 0.52 Test 01/13/17 07:14 01/13/17 08:28 01/13/17 12:12 White Blood Count 7.8 Red Blood Count 3.69 L Hemoglobin 11.1 L Hematocrit 35.8 L Mean Corpuscular Volume 97.0 Mean Corpuscular Hemoglobin 30.1 Mean Corpuscular Hemoglobin Concent 31.0 L Red Cell Distribution Width 15.0 H Platelet Count 303 Mean Platelet Volume 12.2 H Neutrophils % 63.2 Lymphocytes % 22.7 Monocytes % 9.2 Eosinophils % 3.8 Basophils % 0.6 Nucleated Red Blood Cells % 0.0 Neutrophils # 4.9 Lymphocytes # 1.8 Monocytes # 0.7 Eosinophils # 0.3 Basophils # 0.1 Nucleated Red Blood Cells # 0.0 Sodium Level 143 Potassium Level 3.6 Chloride Level 110 Carbon Dioxide Level 23 Anion Gap 14 Blood Urea Nitrogen 7 Creatinine 0.63 Glucose Level 121 Calcium Level 9.1 Total Bilirubin 0.1 L Direct Bilirubin 0.00 Indirect Bilirubin 0.1 Aspartate Amino Transf (AST/SGOT) 16 Alanine Aminotransferase (ALT/SGPT) 28 Alkaline Phosphatase 77 Creatine Kinase < 20 L Creatine Kinase Index Creatinine Kinase MB (Mass) 0.54 Troponin I 0.013 Total Protein 5.9 L Albumin 3.0 L Globulin 2.90 Albumin/Globulin Ratio 1.03 Thyroid Stimulating Hormone (TSH) 1.260 Bedside Glucose 117 117 Medications Medications Current Medications Enoxaparin Sodium (Lovenox) 80 mg BID SC Last administered on 01/13/17 09:58 ; Admin Dose 80 MG; Start 01/13/17 at 09:00 Acetaminophen/ Hydrocodone Bitart ([place] (10/325)) 1 tab Q6H PRN PO PAIN Last administered on 01/13/17 14:59; Admin Dose 1 TAB; Start 01/13/17 at 00:30 Meloxicam (Mobic) 15 mg DAILY PO ; Start 01/13/17 at 09:00 Pantoprazole (Protonix Tab) 40 mg DAILY@06 PO Last administered on 01/13/17 06:37; Admin Dose 40 MG; Start 01/13/17 at 06:00 Atorvastatin Calcium (Lipitor) 20 mg HS PO ; Start 01/13/17 at 21:00 EZETIMIBE (Zetia) 10 mg DAILY PO Last administered on 01/13/17 09:51; Admin Dose 10 MG; Start 01/13/17 at 09:00 Docusate Sodium (Colace) 200 mg BID PO Last administered on 01/13/17 09:51; Admin Dose 200 MG; Start 01/13/17 at 09:00 Polyethylene Glycol (Miralax) 17 gm DAILY NGT Last administered on 01/13/17 09:56; Admin Dose 17 GM; Start 01/13/17 at 09:00 Bisacodyl (Dulcolax Supp) 10 mg DAILY PRN OR CONSTIPATION; Start 01/13/17 at 08:00 Diphenhydramine HCl (Benadryl) 25 mg BID PRN PO ITCHING; Start 01/13/17 at 08: 00 Gabapentin (Neurontin) 300 mg BID PO Last administered on 01/13/17 09:51; Admin Dose 300 MG; Start 01/13/17 at 09:00 Linagliptin (Tradjenta) 5 mg DAILY PO ; Start 01/13/17 at 09:00 Potassium Chloride (Micro-K) 8 meq DAILY PO Last administered on 01/13/17 09: 54; Admin Dose 8 MEQ; Start 01/13/17 at 09:00 Salmeterol Xinafoate/ Fluticasone (Advair 250/50 Diskus) 1 inh BID INH Last administered on 01/13/17 09:56; Admin Dose 1 INH; Start 01/13/17 at 09:00 Solifenacin (Vesicare) 5 mg DAILY PO ; Start 01/13/17 at 09:00 Miscellaneous Information 1 gm DAILY PO ; Start 01/13/17 at 09:00; Status UNV Tiotropium [place] (Spiriva) 1 inh DAILY INH Last administered on 01/13/17 09 :56; Admin Dose 1 INH; Start 01/13/17 at 09:00 Insulin Aspart (Novolog Insulin Pen) NOVOLOG *MILD* ALGORITHM Q6 SC ; Start at 12:00 Clonidine HCl 1 patch 1 patch Q7D TRANSDERM Last administered on 01/13/17 09: 54; Admin Dose 1 PATCH; Start 01/13/17 at 08:30 Magnesium Sulfate (Magnesium Sulfate 2 Gm/50 ml) 50 ml @ 25 mls/hr ONCE ONCE IVPB ; Start 01/14/17 at 08:30; Stop 01/14/17 at 10:29 Diagnostic Test (Pha) (Accu-Chek) 1 ea Q6 XX ; Start 01/14/17 at 02:00 Miscellaneous Information 1 ea NOTE XX ; Start 01/13/17 at 08:30 Glucose (Glutose) 15 gm Q15M PRN PO DECREASED GLUCOSE; Start 01/13/17 at 08:30 Glucose (Glutose) 22.5 gm Q15M PRN PO DECREASED GLUCOSE; Start 01/13/17 at 08: 30 Dextrose (D50w Syringe) 25 ml Q15M PRN IV DECREASED GLUCOSE; Start 01/13/17 at 08:30 Dextrose (D50w Syringe) 50 ml Q15M PRN IV DECREASED GLUCOSE; Start 01/13/17 at 08:30 Glucagon (Glucagen) 1 mg Q15M PRN IM DECREASED GLUCOSE; Start 01/13/17 at 08: 30 Glucose (Glutose) 15 gm Q15M PRN BUCCAL DECREASED GLUCOSE; Start 01/13/17 at 08:30 Miscellaneous Information (*Order Clarification Bulletin) Icosapent Ethyl ( Vascepa... Q8H XX ; Start 01/13/17 at 09:00 Flecainide Acetate 150 mg 150 mg BID PO Last administered on 01/13/17 09:50; Admin Dose 150 MG; Start 01/13/17 at 09:00 Vancomycin HCl 1.5 gm/Sodium Chloride 250 ml @ 83.333 mls/ hr Q24H IVPB Last administered on 01/13/17 11:10; Admin Dose 83.333 MLS/HR; Start 01/13/17 at 09:00 Ferric Sodium Gluconate Complex/ Sodium Chloride (Ferrlecit/NS) 110 ml @ 110 mls/hr Q24H IVPB Last administered on 01/13/17 14:59; Admin Dose 110 MLS/HR; Start 01/13/17 at 10:30; Stop 01/17/17 at 11:29 JORGE PEREZ MD Jan 13, 2017 17:24
[2017-01-13] MEDS: FUROSEMIDE 20 MG INJ IV SCH (17:56)
[2017-01-13] MEDS: ATORVASTATIN 20 MG TAB PO SCH (20:35)
[2017-01-13] MEDS ORDERED: VANCOMYCIN 1.5 GM in SOD CHLORIDE 0.9% 250 ML IVPB SCH (23:00)
[2017-01-14] VITALS (12 sets, daily range): BP systolic 100–127; BP diastolic 50–89; PULSE 65–79; RESP 16–20
[2017-01-14] MEDS: [UNRECOGNIZED DRUG - OTHER] XX SCH ×3 (00:06→17:00)
[2017-01-14] MEDS ORDERED: ACCU-CHEK XX SCH (02:00)
[2017-01-14] MEDS: ACCU-CHEK XX SCH ×4 (02:00→17:41)
[2017-01-14] MEDS: PANTOPRAZOLE (EC) 40 MG TAB PO SCH (05:40)
[2017-01-14] MEDS: INSULIN ASPART [NOVOLOG] 3 ML PEN SC SCH ×5 (05:52→20:53)
[2017-01-14] MEDS: FUROSEMIDE 20 MG INJ IV SCH ×2 (06:00→17:41)
--- NOTE | 2017-01-14 08:10 | CONS ---
Date/Time of Note Date/Time of Note DATE: 01/14/17 TIME: 08:07 Assessment/Plan Assessment/Plan Chief Complaint/Hosp Course Acute on chronic diastolic heart failure: EF preserved. Mild CHF by exam ( difficult) and CXR Chronic incarcerated ventral hernia s/p recent surgical repair H/o unknown cardiac arrhythmia: On flecainide chronically. DM HTN Bedbound state -ASA -lasix 20mg IV BID for now, switch to PO over the weekend -flecainide Problems: Consultation Date/Type/Reason Admit Date/Time Jan 12, 2017 at 22:02 Initial Consult Date 01/13/17 Type of Consultation: Cardiology Referring Provider: STOEN HERNANDEZ MD 24 HR Interval Summary Free Text/Dictation No o/n events. Still with multiple complaints. No arrhythmias on tele Exam/Review of Systems Vital Signs Vitals Vital Signs Date Time Temp Pulse Resp B/P Pulse Ox O2 Delivery O2 Flow Rate FiO2 01/14/17 07:57 97.7 68 17 123/89 99 01/14/17 01:27 2.0 01/13/17 23:58 Nasal Cannula Intake and Output 01/13/17 01/13/17 01/14/17 15:00 23:00 07:00 Intake Total 170 ml Balance 170 ml Exam Constitutional: alert, oriented Psych: nl mood/affect, no complaints Head: atraumatic, normocephalic Neck: No jvd (unable to assess) Respiratory: diminished breath sounds, No clear to auscultation Cardiovascular: edema (trace), regular rate and rhythm, No systolic murmur Gastrointestinal: non-tender, soft Neurological: nl mental status, nl speech Results Result Diagram: 01/13/1714 01/13/17 0714 Results 24 hrs Laboratory Tests Test 01/13/17 08:28 01/13/17 12:12 01/13/17 17:48 01/13/17 23:17 Bedside Glucose 117 117 121 120 Test 01/14/17 05:45 Bedside Glucose 117 Medications Medications Current Medications Enoxaparin Sodium (Lovenox) 80 mg BID SC Last administered on 01/13/17t 20:36 ; Admin Dose 80 MG; Start 01/13/17 at 09:00 Acetaminophen/ Hydrocodone Bitart ([place] (10/325)) 1 tab Q6H PRN PO PAIN Last administered on 01/13/17 20:45; Admin Dose 1 TAB; Start 01/13/17 at 00:30 Meloxicam (Mobic) 15 mg DAILY PO ; Start 01/13/17 at 09:00 Pantoprazole (Protonix Tab) 40 mg DAILY@06 PO Last administered on 01/14/17 05 :40; Admin Dose 40 MG; Start 01/13/17 at 06:00 Atorvastatin Calcium (Lipitor) 20 mg HS PO Last administered on 01/13/17 20: 35; Admin Dose 20 MG; Start 01/13/17 at 21:00 EZETIMIBE (Zetia) 10 mg DAILY PO Last administered on 01/13/17 09:51; Admin Dose 10 MG; Start 01/13/17 at 09:00 Docusate Sodium (Colace) 200 mg BID PO Last administered on 01/13/17 20:35; Admin Dose 200 MG; Start 01/13/17 at 09:00 Polyethylene Glycol (Miralax) 17 gm DAILY NGT Last administered on 01/13/17 09:56; Admin Dose 17 GM; Start 01/13/17 at 09:00 Bisacodyl (Dulcolax Supp) 10 mg DAILY PRN CA CONSTIPATION; Start 01/13/17 at 08:00 Diphenhydramine HCl (Benadryl) 25 mg BID PRN PO ITCHING; Start 01/13/17 at 08: 00 Gabapentin (Neurontin) 300 mg BID PO Last administered on 01/13/17 20:35; Admin Dose 300 MG; Start 01/13/17 at 09:00 Linagliptin (Tradjenta) 5 mg DAILY PO ; Start 01/13/17 at 09:00 Potassium Chloride (Micro-K) 8 meq DAILY PO Last administered on 01/13/17 09: 54; Admin Dose 8 MEQ; Start 01/13/17 at 09:00 Salmeterol Xinafoate/ Fluticasone (Advair 250/50 Diskus) 1 inh BID INH Last administered on 01/13/17 22:19; Admin Dose 1 INH; Start 01/13/17 at 09:00 Solifenacin (Vesicare) 5 mg DAILY PO ; Start 01/13/17 at 09:00 Miscellaneous Information 1 gm DAILY PO ; Start 01/13/17 at 09:00; Status UNV Tiotropium [place] (Spiriva) 1 inh DAILY INH Last administered on 01/13/17 09 :56; Admin Dose 1 INH; Start 01/13/17 at 09:00 Insulin Aspart (Novolog Insulin Pen) NOVOLOG *MILD* ALGORITHM Q6 SC ; Start at 12:00 Clonidine HCl 1 patch 1 patch Q7D TRANSDERM Last administered on 01/13/17 09: 54; Admin Dose 1 PATCH; Start 01/13/17 at 08:30 Magnesium Sulfate (Magnesium Sulfate 2 Gm/50 ml) 50 ml @ 25 mls/hr ONCE ONCE IVPB ; Start 01/14/17 at 08:30; Stop 01/14/17 at 10:29 Diagnostic Test (Pha) (Accu-Chek) 1 ea Q6 XX ; Start 01/14/17 at 02:00 Miscellaneous Information 1 ea NOTE XX ; Start 01/13/17 at 08:30 Glucose (Glutose) 15 gm Q15M PRN PO DECREASED GLUCOSE; Start 01/13/17 at 08:30 Glucose (Glutose) 22.5 gm Q15M PRN PO DECREASED GLUCOSE; Start 01/13/17 at 08: 30 Dextrose (D50w Syringe) 25 ml Q15M PRN IV DECREASED GLUCOSE; Start 01/13/17 at 08:30 Dextrose (D50w Syringe) 50 ml Q15M PRN IV DECREASED GLUCOSE; Start 01/13/17 at 08:30 Glucagon (Glucagen) 1 mg Q15M PRN IM DECREASED GLUCOSE; Start 01/13/17 at 08: 30 Glucose (Glutose) 15 gm Q15M PRN BUCCAL DECREASED GLUCOSE; Start 01/13/17 at 08:30 Miscellaneous Information (*Order Clarification Bulletin) Icosapent Ethyl ( Vascepa... Q8H XX ; Start 01/13/17 at 09:00 Flecainide Acetate 150 mg 150 mg BID PO Last administered on 01/13/17 20:35; Admin Dose 150 MG; Start 01/13/17 at 09:00 Vancomycin HCl 1.5 gm/Sodium Chloride 250 ml @ 83.333 mls/ hr Q24H IVPB Last administered on 01/13/17 11:10; Admin Dose 83.333 MLS/HR; Start 01/13/17 at 09:00 Ferric Sodium Gluconate Complex/ Sodium Chloride (Ferrlecit/NS) 110 ml @ 110 mls/hr Q24H IVPB Last administered on 01/13/17t 14:59; Admin Dose 110 MLS/HR; Start 01/13/17 at 10:30; Stop 01/17/17 at 11:29 KEVIN CHOU Jan 14, 2017 08:10
[2017-01-14] MEDS: ALBUTEROL/IPRATROPIUM (NEB) 3 ML AMP HHN SCH ×3 (08:28→23:28)
[2017-01-14] MEDS ORDERED: MAGNESIUM SULFATE 2 GM/50 ML 50 ML IVPB ONE (08:30)
[2017-01-14] MEDS: GABAPENTIN 300 MG CAP PO SCH ×2 (08:55→20:43)
[2017-01-14] MEDS: SALMETEROL/FLUTICASONE 250/50 INHA INH SCH ×2 (08:55→20:52)
[2017-01-14] MEDS: DOCUSATE SODIUM 100 MG CAP PO SCH ×2 (08:55→20:42)
[2017-01-14] MEDS: LINAGLIPTIN 5 MG TABLET PO SCH (08:55)
[2017-01-14] MEDS: TIOTROPIUM 18 MCG CAPSULE INHA DEV INH SCH (08:55)
[2017-01-14] MEDS: FLECAINIDE 100 MG TAB PO SCH ×2 (08:57→20:43)
[2017-01-14] MEDS: MELOXICAM 15 MG TAB PO SCH (08:57)
[2017-01-14] MEDS: POTASSIUM CHLORIDE (SR) 8 MEQ CAP PO SCH (08:57)
[2017-01-14] MEDS: SOLIFENACIN 5 MG TAB PO SCH (08:58)
[2017-01-14] MEDS: POLYETHYLENE GLYCOL 17 GM PACKET NGT SCH (08:58)
[2017-01-14] MEDS: VANCOMYCIN 1.5 GM in SOD CHLORIDE 0.9% 250 ML IVPB SCH (09:00)
[2017-01-14] MEDS: ENOXAPARIN 80 MG/0.8 ML SYG SC SCH ×2 (09:24→20:44)
[2017-01-14] MEDS: metFORMIN 500 MG TAB PO SCH ×2 (09:29→17:42)
[2017-01-14] MEDS: EZETIMIBE 10 MG TAB PO SCH (09:30)
--- NOTE | 2017-01-14 11:48 | RADRPT ---
PROCEDURE: XR RIGHT SHOULDER. CLINICAL INDICATION: Right shoulder pain TECHNIQUE: 3 views of the right shoulder were performed. COMPARISON: None. FINDINGS: There is no evidence of acute fracture dislocation of the right shoulder. Bony mineralization and al ignment are unremarkable. Joint spaces are preserved. The acromioclavicular joint is intact. Osteoar thritic changes. No significant soft tissue swelling. IMPRESSION: 1. Right shoulder osteoarthritis, without evidence of acute fractures or dislocation. RPTAT: AAPP Physician Vale Date Time Electronically viewed and signed by Altagracia Holt Physician on 01/14/2017 11:48 ALIA/
--- NOTE | 2017-01-14 11:50 | RADRPT ---
PROCEDURE: XR ABDOMEN: CLINICAL INDICATION: Abdominal pain TECHNIQUE: Multiple views of the abdomen were acquired . COMPARISON: None. FINDINGS: There is nonspecific bowel gas pattern without evidence of obstruction. No gross subdiaphragmatic fr ee air. No gross abnormal abdominal calcifications overlying the urinary tracts. Multilevel degenerative disease and mild scoliosis of the lumbosacral spine.. IMPRESSION: 1. Nonspecific bowel gas pattern without evidence of obstruction. No gross subdiaphragmatic free air . 3. If clinical symptoms persist, or suspicion remains recommend follow-up CT scan of the abdomen/pel vis. RPTAT: AAPP Physician Vale Date Time Electronically viewed and signed by Physician Vale on 01/14/2017 11:49 ALIA/
[2017-01-14] MEDS: SOD FERRIC GLUC COMPLX 125 MG in SOD CHLORIDE 0.9% 100 ML IVPB SCH (12:08)
[2017-01-14] MEDS: HYDROCODONE/APAP (10/325) TAB PO PRN ×2 (12:13→19:48)
--- NOTE | 2017-01-14 12:45 | RADRPT ---
PROCEDURE: XR Cervical Spine. CLINICAL INDICATION: Neck pain. TECHNIQUE: Three views of the cervical spine were performed. Frontal, lateral, and AP open-mouth o dontoid. The images were reviewed on a PACS workstation. COMPARISON: None. FINDINGS: This is a limited study as the shoulders and soft tissues obscure the C4, C5, C6, and C7 vertebrae. There are degenerative changes at C3-4 with disc space narrowing and osteophytes. The visualized vertebrae are unremarkable. IMPRESSION: 1. Extremely limited study as described above. Correlation with CT scan or MRI should be considered . 2. Degenerative changes at C3-4. RPTAT: QQ .Andrzej Alexandre MD, MD Date Time Electronically viewed and signed by .Andrzej Alexandre MD, on 01/14/2017 12:44 .R/
--- NOTE | 2017-01-14 20:26 | PN ---
Date/Time of Note Date/Time of Note DATE: 01/14/17 TIME: :22 Assessment/Plan VTE Prophylaxis VTE Prophylaxis Intervention: ambulation, anti-embolic stocking VTE Contraindication Reason: peripheral vascular disease Lines/Catheters IV Catheter Type (from Nrsg): [place] [employer] line still needed: No Urinary Cath still in place: No Reason Cath still needed: urinary retention Assessment/Plan Assessment/Plan 1. Severe constipation with no bowel movement lat 15 days; she had 1 bowel movements, with no trace of blood, no melena. She was passing gases.After the repair of incarcerated umbilical hernia she feels less pain in the abdomen. 2. Bad odor from the urine with recurrent hematuria.- on Amoxil and Levaquin improved. 3.Low abdominal pain and llq abd pain with mild rebound. 4. Leukocytosis- from 9 to 7 today. stable. 5. History of having palpitations and bradycardia; lowest rate 45. 6. History of having bronchial asthma, now stable. 7. Wound of the postsurgical midline scar, right-sided abdomen, and a new left pararecal scar of new surgery done in [facility], well healed(01/05/17 approximately). 8. Status post cholecystectomy. 9. Postmenstrual syndrome. 10. Anxiety. 11. Constantly hungry. 12. Dyslipidemia. 13. Diabetes type 2. 14. History of having carbon dioxide retention- was on BIPAP, now stable. 15. Anemia of chronic disease with recent loss. H/H stable. 16. History of chronic kidney disease, improved. 17. History of having low iron and low magnesium levels- corrected. 18. Pain syndrome-on norco. 19. Major depression. 20. Altered level of consciousness- on and off. 21. Diverticulitis. 22. Left-sided chest pain, worse after the discharge and yesterday, today not as troublesome. 23.Urinary retention 24.Trophic changes of both legs with change of a color to dark. 25.Pilling of the skin of nail beds of both hands with deformities and trace of blood and swelling. 26.Bedridden for about 11 years being almost totally dependent from outside help. 27.Decubitus of the left gluteal area with mild redness of the calcaneal skin, stable. 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 32.Mindless eating with preserved awareness and inability to stop dooing that. Most of t he time now she continues to repeat the ritual of eating bu without being able to stop it from occurring (automatic behavior ). 33.Chronic norco,percocet, and other controlled substance user. 34.Bradycardia- now normal sinus rhythm on monitor. 35.Morbid obesity; Obesity hypopnea syndrome,hypercarbia with Pc02 57( average) 36.Hallucinations(mainly visual), confusion, fear of on and off 37.Hypertension, now normotensive. Congestive heart failure exacerbation with pulmonary edema.Improving 38.Low magnesium and low iron levels 39.Pannus 40.Morbid obesity due to of excess calories 41.Spinal stenosis with radiculopathy 42.Urinary retention 43.Cervicobrachial syndrome with pain and decreased rom 44.Agarophobia. 45.Claustrophobia Cont'd Hospitalization Reason: as above Subjective 24 Hr Interval Summary Free Text/Dictation Severe bilateral knee and right shoulder pain with inability to sleep due to of a pain. Constitutional: chills, disoriented, poor po Eyes: No discharge, No no complaints, No other, No pain, No redness, No visual change ENT: No bleeding, No congestion, No discharge, No dysphagia, No no complaints, No other, No pain, No sore throat Respiratory: cough, shortness of breath, No no complaints, No other, No pain, No pleuritic pain, No sputum, No wheezing Cardiovascular: lightheadedness, orthopenea, paroxysmal nocturnal dyspnea Gastrointestinal: constipation, flatus, nausea, No blood, No decreased appetite, No diarrhea, No no complaints, No other, No pain, No passing stool, No vomiting Genitourinary: dysuria Musculoskeletal: bone/joint pain, neck pain, restricted range of motion Psychological: anxiety, depression, No confusion, No nl mood/affect, No no complaints, No other, No suicidal Exam/Review of Systems Vital Signs Vitals Vital Signs Date Time Temp Pulse Resp B/P Pulse Ox O2 Delivery O2 Flow Rate FiO2 01/14/17 17:03 70 01/14/17 16:19 97.1 20 100/54 94 01/14/17 16:00 Nasal Cannula 2.0 Intake and Output 01/13/17 01/13/17 01/14/17 15:00 23:00 07:00 Intake Total 170 ml Balance 170 ml Exam Constitutional: alert, frail, obese, oriented, well developed, No distress, No non-verbal, No other Psych: anxiety, confusion, depression, No nl mood/affect, No no complaints, No other, No suicidal Head: atraumatic, normocephalic, No hematomas, No lacerations, No other Eyes: EOMI, PERRL, nl lids, No fundi, disc, No icteric, No nl conjunctiva, No nl sclera, No other ENMT: nl external ears & nose, No intubated, No mucosa pink and moist, No nl lips & teeth, No nl nasal mucosa & septum, No other, No tympanic membranes Neck: bruits, jvd, nuchal rigidity, No masses, No non-tender, No other, No supple, No thyromegaly Respiratory: clear to auscultation, congested cough, diminished breath sounds, No crackles/rales, No intercostal retraction, No labored breathing, No normal air movement, No other, No respirations, No tactile fremitus, No wheezing Cardiovascular: bruits, irregular rhythm, jugular venous distention (JVD), systolic murmur, No S3, No S4, No diastolic murmur, No edema, No gallop, No murmurs/extra sounds, No nl pulses, No other, No regular rate and rhythm, No rub Gastrointestinal: ascites, bowel sounds, nl liver, spleen, soft, No distended, No firm, No hepatomegaly, No mass, No non-tender, No other, No rebound or guarding, No splenomegaly, No surgical scars, No tender Genitourinary - Female: CVA tenderness, No CMT, No nl adnexae, No nl external genitalia, No other, No uterus Musculoskeletal: joint tenderness, muscle tone, muscle weakness, nl extremities to inspection (deformed, half flexed knee joints.), nl gait and stance (not moving.Unable.), range of motion, No other, No spine non-tender, No swelling Neurological: [employer] II-XII intact (hearing impairment.), confused, focal weakness, lethargic, nl mental status, numbness Skin: nl turgor (decreased), No diaphoresis, No ecchymosis, No laceration, No other, No puncture, No rash or lesions Lymph: No enlarged, No nl lymph nodes, No nontender, No other Results Result Diagram: 01/13/17 0714 01/13/17 0714 Results 24 hrs Laboratory Tests Test 01/13/17 23:17 01/14/17 05:45 01/14/17 08:32 01/14/17 12:10 Bedside Glucose 120 117 112 133 Test 01/14/17 17:38 Bedside Glucose 99 Medications Medications Current Medications Enoxaparin Sodium (Lovenox) 80 mg BID SC Last administered on 01/14/17 09:24; Admin Dose 80 MG; Start 01/13/17 at 09:00 Acetaminophen/ Hydrocodone Bitart ([place] (10/325)) 1 tab Q6H PRN PO PAIN Last administered on 01/14/17 19:48; Admin Dose 1 TAB; Start 01/13/17 at 00:30 Meloxicam (Mobic) 15 mg DAILY PO Last administered on 01/14/17 08:57; Admin Dose 15 MG; Start 01/13/17 at 09:00 Pantoprazole (Protonix Tab) 40 mg DAILY@06 PO Last administered on 01/14/17 05 :40; Admin Dose 40 MG; Start 01/13/17 at 06:00 Atorvastatin Calcium (Lipitor) 20 mg HS PO Last administered on 01/13/17 20: 35; Admin Dose 20 MG; Start 01/13/17 at 21:00 EZETIMIBE (Zetia) 10 mg DAILY PO Last administered on 01/14/17 09:30; Admin Dose 10 MG; Start 01/13/17 at 09:00 Docusate Sodium (Colace) 200 mg BID PO Last administered on 01/14/17 08:55; Admin Dose 200 MG; Start 01/13/17 at 09:00 Polyethylene Glycol (Miralax) 17 gm DAILY NGT Last administered on 01/14/17 08 :58; Admin Dose 17 GM; Start 01/13/17 at 09:00 Bisacodyl (Dulcolax Supp) 10 mg DAILY PRN [place] CONSTIPATION; Start 01/13/17 at 08:00 Diphenhydramine HCl (Benadryl) 25 mg BID PRN PO ITCHING; Start 01/13/17 at 08: 00 Gabapentin (Neurontin) 300 mg BID PO Last administered on 01/14/17 08:55; Admin Dose 300 MG; Start 01/13/17 at 09:00 Linagliptin (Tradjenta) 5 mg DAILY PO Last administered on 01/14/17 08:55; Admin Dose 5 MG; Start 01/13/17 at 09:00 Potassium Chloride (Micro-K) 8 meq DAILY PO Last administered on 01/14/17 08: 57; Admin Dose 8 MEQ; Start 01/13/17 at 09:00 Salmeterol Xinafoate/ Fluticasone (Advair 250/50 Diskus) 1 inh BID INH Last administered on 01/14/17 08:55; Admin Dose 1 INH; Start 01/13/17 at 09:00 Solifenacin (Vesicare) 5 mg DAILY PO Last administered on 01/14/17 08:58; Admin Dose 5 MG; Start 01/13/17 at 09:00 Miscellaneous Information 1 gm DAILY PO ; Start 01/13/17 at 09:00; Status UNV Tiotropium [place] (Spiriva) 1 inh DAILY INH Last administered on 01/14/17 08: 55; Admin Dose 1 INH; Start 01/13/17 at 09:00 Insulin Aspart (Novolog Insulin Pen) NOVOLOG *MILD* ALGORITHM Q6 SC ; Start at 12:00 Clonidine HCl (Catapres-Tts 1 Patch) 1 patch Q7D TRANSDERM Last administered on 01/13/17 09:54; Admin Dose 1 PATCH; Start 01/13/17 at 08:30 Diagnostic Test (Pha) (Accu-Chek) 1 ea Q6 XX Last administered on 01/14/17 17: 41; Admin Dose 1 EA; Start 01/14/17 at 02:00 Miscellaneous Information 1 ea NOTE XX ; Start 01/13/17 at 08:30 Glucose (Glutose) 15 gm Q15M PRN PO DECREASED GLUCOSE; Start 01/13/17 at 08:30 Glucose (Glutose) 22.5 gm Q15M PRN PO DECREASED GLUCOSE; Start 01/13/17 at 08: 30 Dextrose (D50w Syringe) 25 ml Q15M PRN IV DECREASED GLUCOSE; Start 01/13/17 at 08:30 Dextrose (D50w Syringe) 50 ml Q15M PRN IV DECREASED GLUCOSE; Start 01/13/17 at 08:30 Glucagon (Glucagen) 1 mg Q15M PRN IM DECREASED GLUCOSE; Start 01/13/17 at 08: 30 Glucose (Glutose) 15 gm Q15M PRN BUCCAL DECREASED GLUCOSE; Start 01/13/17 at 08:30 Miscellaneous Information (*Order Clarification Bulletin) Icosapent Ethyl ( Vascepa... Q8H XX ; Start 01/13/17 at 09:00 Flecainide Acetate 150 mg 150 mg BID PO Last administered on 01/14/17 08:57; Admin Dose 150 MG; Start 01/13/17 at 09:00 Vancomycin HCl 1.5 gm/Sodium Chloride 250 ml @ 83.333 mls/ hr Q24H IVPB Last administered on 01/14/17 09:00; Admin Dose 83.333 MLS/HR; Start 01/13/17 at 09 :00 Ferric Sodium Gluconate Complex/ Sodium Chloride (Ferrlecit/NS) 110 ml @ 110 mls/hr Q24H IVPB Last administered on 01/14/17 12:08; Admin Dose 110 MLS/HR; Start 01/13/17 at 10:30; Stop 01/17/17 at 11:29 STONE HERNANDEZ MD Jan 14, 2017 20:26
[2017-01-14] MEDS: ATORVASTATIN 20 MG TAB PO SCH (20:42)
--- NOTE | 2017-01-14 21:33 | CONS ---
Date/Time of Note Date/Time of Note DATE: 01/14/17 TIME: 21:32 Assessment/Plan Assessment/Plan Chief Complaint/Hosp Course ANEMIA- N CYTIC WITH INCREASED RDW + acd LOOKS COMPENSATED CONT TO MONITOR BLOOD COUNT CLOSELY MONITOR FOR BLEEDING AND HEMOLYSIS HYPERCOAGULABLE STATE WITH HX DVT CONT LOVENOX h/o diastolic heart failure, cardiac arrhythmia (unclear details) on flecainide, DM, HTN, HL, bedbound state for 10+ years, recent abdominal hernia repair Problems: Consultation Date/Type/Reason Admit Date/Time Jan 12, 2017 at 22:02 Initial Consult Date 01/13/17 Type of Consultation: hemeon Referring Provider: STONE HERNANDEZ MD 24 HR Interval Summary Free Text/Dictation + SOB WEAK Exam/Review of Systems Vital Signs Vitals Vital Signs Date Time Temp Pulse Resp B/P Pulse Ox O2 Delivery O2 Flow Rate FiO2 01/14/17 20:55 98.0 76 18 111/56 98 01/14/17 16:00 Nasal Cannula 2.0 Intake and Output 01/13/17 01/13/17 01/14/17 15:00 23:00 07:00 Intake Total 170 ml Balance 170 ml Exam Constitutional: alert, oriented Psych: anxiety Head: atraumatic, normocephalic Neck: No jvd (difficult to examine but appears to be 7-8cm) Respiratory: diminished breath sounds, No clear to auscultation Cardiovascular: edema (trace), regular rate and rhythm, No systolic murmur Gastrointestinal: non-tender, other (surgical healing wound noted ), soft Musculoskeletal: nl extremities to inspection Neurological: nl mental status, nl speech Skin: No rash or lesions Results Result Diagram: 01/13/1714 01/13/17 0714 Results 24 hrs Laboratory Tests Test 01/13/17 23:17 01/14/17 05:45 01/14/17 08:32 01/14/17 12:10 Bedside Glucose 120 117 112 133 Test 01/14/17 17:38 01/14/17 20:51 Bedside Glucose 99 111 Medications Medications Current Medications Enoxaparin Sodium (Lovenox) 80 mg BID SC Last administered on 01/14/17t 20:44; Admin Dose 80 MG; Start 01/13/17 at 09:00 Acetaminophen/ Hydrocodone Bitart ([place] (10325)) 1 tab Q6H PRN PO PAIN Last administered on 01/14/17 19:48; Admin Dose 1 TAB; Start 01/13/17 at 00:30 Meloxicam (Mobic) 15 mg DAILY PO Last administered on 01/14/17 08:57; Admin Dose 15 MG; Start 01/13/17 at 09:00 Pantoprazole (Protonix Tab) 40 mg DAILY@06 PO Last administered on 01/14/17 05 :40; Admin Dose 40 MG; Start 01/13/17 at 06:00 Atorvastatin Calcium (Lipitor) 20 mg HS PO Last administered on 01/14/17 20:42 ; Admin Dose 20 MG; Start 01/13/17 at 21:00 EZETIMIBE (Zetia) 10 mg DAILY PO Last administered on 01/14/17 09:30; Admin Dose 10 MG; Start 01/13/17 at 09:00 Docusate Sodium (Colace) 200 mg BID PO Last administered on 01/14/17 20:42; Admin Dose 200 MG; Start 01/13/17 at 09:00 Polyethylene Glycol (Miralax) 17 gm DAILY NGT Last administered on 01/14/17 08 :58; Admin Dose 17 GM; Start 01/13/17 at 09:00 Bisacodyl (Dulcolax Supp) 10 mg DAILY PRN [place] CONSTIPATION; Start 01/13/17 at 08:00 Diphenhydramine HCl (Benadryl) 25 mg BID PRN PO ITCHING; Start 01/13/17 at 08: 00 Gabapentin (Neurontin) 300 mg BID PO Last administered on 01/14/17 20:43; Admin Dose 300 MG; Start 01/13/17 at 09:00 Linagliptin (Tradjenta) 5 mg DAILY PO Last administered on 01/14/17 08:55; Admin Dose 5 MG; Start 01/13/17 at 09:00 Potassium Chloride (Micro-K) 8 meq DAILY PO Last administered on 01/14/17 08: 57; Admin Dose 8 MEQ; Start 01/13/17 at 09:00 Salmeterol Xinafoate/ Fluticasone (Advair 250/50 Diskus) 1 inh BID INH Last administered on 01/14/17 20:52; Admin Dose 1 INH; Start 01/13/17 at 09:00 Solifenacin (Vesicare) 5 mg DAILY PO Last administered on 01/14/17 08:58; Admin Dose 5 MG; Start 01/13/17 at 09:00 Miscellaneous Information 1 gm DAILY PO ; Start 01/13/17 at 09:00; Status UNV Tiotropium [place] (Spiriva) 1 inh DAILY INH Last administered on 01/14/17 08: 55; Admin Dose 1 INH; Start 01/13/17 at 09:00 Clonidine HCl (Catapres-Tts 1 Patch) 1 patch Q7D TRANSDERM Last administered on 01/13/17 09:54; Admin Dose 1 PATCH; Start 01/13/17 at 08:30 Diagnostic Test (Pha) (Accu-Chek) 1 ea Q6 XX Last administered on 01/14/17 17: 41; Admin Dose 1 EA; Start 01/14/17 at 02:00 Miscellaneous Information 1 ea NOTE XX ; Start 01/13/17 at 08:30 Glucose (Glutose) 15 gm Q15M PRN PO DECREASED GLUCOSE; Start 01/13/17 at 08:30 Glucose (Glutose) 22.5 gm Q15M PRN PO DECREASED GLUCOSE; Start 01/13/17 at 08: 30 Dextrose (D50w Syringe) 25 ml Q15M PRN IV DECREASED GLUCOSE; Start 01/13/17 at 08:30 Dextrose (D50w Syringe) 50 ml Q15M PRN IV DECREASED GLUCOSE; Start 01/13/17 at 08:30 Glucagon (Glucagen) 1 mg Q15M PRN IM DECREASED GLUCOSE; Start 01/13/17 at 08: 30 Glucose (Glutose) 15 gm Q15M PRN BUCCAL DECREASED GLUCOSE; Start 01/13/17 at 08:30 Miscellaneous Information (*Order Clarification Bulletin) Icosapent Ethyl ( Vascepa... Q8H XX ; Start 01/13/17 at 09:00 Flecainide Acetate 150 mg 150 mg BID PO Last administered on 01/14/17 20:43; Admin Dose 150 MG; Start 01/13/17 at 09:00 Vancomycin HCl 1.5 gm/Sodium Chloride 250 ml @ 83.333 mls/ hr Q24H IVPB Last administered on 01/14/17 09:00; Admin Dose 83.333 MLS/HR; Start 01/13/17 at 09 :00 Ferric Sodium Gluconate Complex/ Sodium Chloride (Ferrlecit/NS) 110 ml @ 110 mls/hr Q24H IVPB Last administered on 01/14/17t 12:08; Admin Dose 110 MLS/HR; Start 01/13/17 at 10:30; Stop 01/17/17 at 11:29 JORGE PEREZ MD Jan 14, 2017 21:33
[2017-01-15] VITALS (12 sets, daily range): BP systolic 97–127; BP diastolic 42–61; PULSE 70–89; RESP 15–18
[2017-01-15] MEDS: [UNRECOGNIZED DRUG - OTHER] XX SCH ×2 (01:00→09:00)
[2017-01-15] MEDS: HYDROCODONE/APAP (10/325) TAB PO PRN ×4 (01:00→20:10)
[2017-01-15] MEDS: ACCU-CHEK XX SCH ×8 (06:00→20:17)
[2017-01-15] MEDS: PANTOPRAZOLE (EC) 40 MG TAB PO SCH (06:11)
[2017-01-15] MEDS: FUROSEMIDE 20 MG INJ IV SCH ×2 (06:13→18:00)
[2017-01-15 06:19] LABS: BASOPHILS % 0.5 % (0.0-2.0); EOSINOPHILS # 0.4 10^3/ul (0.0-0.5); HEMATOCRIT 36.3 % (37.0-47.0); HEMOGLOBIN 11.2 g/dl (12.0-16.0); LYMPHOCYTES # 2.2 10^3/ul (0.8-2.9); LYMPHOCYTES % 24.7 % (15.0-51.0); MEAN CORPUSCULAR HEMOGLOBIN 30.2 pg (29.0-33.0); MEAN CORPUSCULAR HGB CONC 30.9 g/dl (32.0-37.0); MEAN CORPUSCULAR VOLUME 97.8 fl (82.0-101.0); MEAN PLATELET VOLUME 12.5 fl (7.4-10.4); MONOCYTE # 0.8 10^3/ul (0.3-0.9); MONOCYTES % 8.8 % (0.0-11.0); NEUTROPHIL # 5.4 10^3/ul (1.6-7.5); NEUTROPHILS % 61.7 % (39.0-77.0); PLATELET COUNT 259 10^3/UL (140-415); RED BLOOD COUNT 3.71 10^6/ul (4.20-5.40); RED CELL DISTRIBUTION WIDTH 14.8 % (11.5-14.5); WHITE BLOOD COUNT 8.7 10^3/ul (4.8-10.8)
[2017-01-15 06:47] LABS: CREATININE 0.77 mg/dl (0.44-1.00)
[2017-01-15 07:00] LABS: ALBUMIN/GLOBULIN RATIO 0.9; BILIRUBIN,INDIRECT 0.1 mg/dl (0-1.1); BILIRUBIN,TOTAL 0.1 mg/dl (0.2-1.3); CALCIUM 8.8 mg/dl (8.4-10.2); CREATININE 0.81 mg/dl (0.44-1.00); POTASSIUM 3.3 mmol/L (3.5-5.1); TOTAL PROTEIN 6.3 g/dl (6.1-8.1)
[2017-01-15] MEDS: INSULIN ASPART [NOVOLOG] 3 ML PEN SC SCH ×4 (07:30→20:16)
[2017-01-15] MEDS: metFORMIN 500 MG TAB PO SCH ×2 (08:00→18:00)
[2017-01-15] MEDS: ALBUTEROL/IPRATROPIUM (NEB) 3 ML AMP HHN SCH ×3 (08:14→23:25)
[2017-01-15] MEDS: EZETIMIBE 10 MG TAB PO SCH (09:00)
--- NOTE | 2017-01-15 09:21 | PN ---
Date/Time of Note Date/Time of Note DATE: 01/15/17 TIME: 09:21 Assessment/Plan VTE Prophylaxis VTE Prophylaxis Intervention: ambulation, anti-embolic stocking VTE Contraindication Reason: peripheral vascular disease Lines/Catheters IV Catheter Type (from Nrsg): [place] line still needed: No Urinary Cath still in place: No Reason Cath still needed: urinary retention Assessment/Plan Assessment/Plan 1. Severe constipation with no bowel movement lat 15 days; she had 1 bowel movements, with no trace of blood, no melena. She was passing gases.After the repair of incarcerated umbilical hernia she feels less pain in the abdomen. 2. Bad odor from the urine with recurrent hematuria.- on Amoxil and Levaquin improved. 3.Low abdominal pain and llq abd pain with mild rebound. 4. Leukocytosis- from 9 to 7 today. stable. 5. History of having palpitations and bradycardia; lowest rate 45. 6. History of having bronchial asthma, now stable. 7. Wound of the postsurgical midline scar, right-sided abdomen, and a new left pararecal scar of new surgery done in [facility], well healed(01/05/17 approximately). 8. Status post cholecystectomy. 9. Postmenstrual syndrome. 10. Anxiety. 11. Constantly hungry. 12. Dyslipidemia. 13. Diabetes type 2. 14. History of having carbon dioxide retention- was on BIPAP, now stable. 15. Anemia of chronic disease with recent loss. H/H stable. 16. History of chronic kidney disease, improved. 17. History of having low iron and low magnesium levels- corrected. 18. Pain syndrome-on norco. 19. Major depression. 20. Altered level of consciousness- on and off. 21. Diverticulitis. 22. Left-sided chest pain, worse after the discharge and yesterday, today not as troublesome. 23.Urinary retention 24.Trophic changes of both legs with change of a color to dark. 25.Pilling of the skin of nail beds of both hands with deformities and trace of blood and swelling. 26.Bedridden for about 11 years being almost totally dependent from outside help. 27.Decubitus of the left gluteal area with mild redness of the calcaneal skin, stable. 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 32.Mindless eating with preserved awareness and inability to stop dooing that. Most of t he time now she continues to repeat the ritual of eating bu without being able to stop it from occurring (automatic behavior ). 33.Chronic norco,percocet, and other controlled substance user. 34.Bradycardia- now normal sinus rhythm on monitor. 35.Morbid obesity; Obesity hypopnea syndrome,hypercarbia with Pc02 57( average) 36.Hallucinations(mainly visual), confusion, fear of on and off 37.Hypertension, now normotensive. Congestive heart failure exacerbation with pulmonary edema.Improving 38.Low magnesium and low iron levels 39.Pannus 40.Morbid obesity due to of excess calories 41.Spinal stenosis with radiculopathy 42.Urinary retention 43.Cervicobrachial syndrome with pain and decreased rom 44.Agarophobia. 45.Claustrophobia Cont'd Hospitalization Reason: Called ;He is in [place]; Call dr. Mccain- for evaluation. Subjective 24 Hr Interval Summary Free Text/Dictation worsening of knee and shoulder pain. Constitutional: chills, diaphoresis, disoriented, poor po, requiring O2, No febrile, No improved, No no complaints, No other, No requiring IVF Eyes: discharge, redness, No no complaints, No other, No pain, No visual change ENT: congestion, discharge, sore throat, No bleeding, No dysphagia, No no complaints, No other, No pain Respiratory: cough, pain, shortness of breath, No no complaints, No other, No pleuritic pain, No sputum, No wheezing Cardiovascular: chest pain, edema, lightheadedness, orthopenea, palpitations, paroxysmal nocturnal dyspnea, No no complaints, No other Gastrointestinal: constipation, flatus, No blood, No decreased appetite, No diarrhea, No nausea, No no complaints, No other, No pain, No passing stool, No vomiting Genitourinary: dysuria, flank pain, No bleeding, No discharge, No hematuria, No no complaints, No other Skin: bruising, pruritis, skin lesions Neurologic: confusion, dizziness, focal-weakness, headache, No no complaints, No other, No seizure, No syncope Endocrine: dry skin Psychological: anxiety, confusion, depression, other (hallucinations.) Exam/Review of Systems Vital Signs Vitals Vital Signs Date Time Temp Pulse Resp B/P Pulse Ox O2 Delivery O2 Flow Rate FiO2 01/15/17 08:38 70 01/15/17 08:15 98 2.0 01/15/17 08:14 22 Nasal Cannula 01/15/17 07:52 97.9 118/57 Intake and Output 01/14/17 01/14/17 01/15/17 15:00 23:00 07:00 Intake Total 250 ml 720 ml 500 ml Balance 250 ml 720 ml 500 ml Exam Constitutional: alert, distress, frail, obese, oriented, other (getting confused and disoriented during conversation.), well developed Psych: anxiety, confusion, depression, No nl mood/affect, No no complaints, No other, No suicidal Head: atraumatic Eyes: EOMI, PERRL, nl lids, No fundi, disc, No icteric, No nl conjunctiva, No nl sclera, No other ENMT: nl external ears & nose, nl nasal mucosa & septum, tympanic membranes Neck: bruits, jvd, nuchal rigidity, No masses, No non-tender, No other, No supple, No thyromegaly Respiratory: clear to auscultation, congested cough, diminished breath sounds, labored breathing, No crackles/rales, No intercostal retraction, No normal air movement, No other, No respirations, No tactile fremitus, No wheezing Cardiovascular: bruits, jugular venous distention (JVD), systolic murmur, No S3, No S4, No diastolic murmur, No edema, No gallop, No irregular rhythm, No murmurs/extra sounds, No nl pulses, No other, No regular rate and rhythm, No rub Gastrointestinal: bowel sounds, distended, nl liver, spleen, other (bs + but deminished in intensity.), rebound or guarding, soft, surgical scars, No ascites, No firm, No hepatomegaly, No mass, No non-tender, No splenomegaly , No tender Genitourinary - Female: CVA tenderness, No CMT, No nl adnexae, No nl external genitalia, No other, No uterus Musculoskeletal: joint tenderness, muscle tone, muscle weakness, range of motion, No nl extremities to inspection, No nl gait and stance, No other, No spine non-tender, No swelling Extremities: calf tenderness, clubbing, No cyanosis, No edema, No normal pulses, No other, No palpable cord, No pitting pedal edema, No tenderness Neurological: [employer] II-XII intact, confused, lethargic, nl mental status (on and off confused, deliriouse.), No DTR's symmetric, No focal weakness, No nl speech, No nl strength, No numbness, No other, No reflexes, No unresponsive Skin: diaphoresis, No ecchymosis, No laceration, No nl turgor, No other, No puncture, No rash or lesions Results Result Diagram: 01/15/17 0511 01/15/17 0511 Results 24 hrs Laboratory Tests Test 01/14/17 12:10 01/14/17 17:38 01/14/17 20:51 01/15/17 05:11 Bedside Glucose 133 99 111 White Blood Count 8.7 Red Blood Count 3.71 L Hemoglobin 11.2 L Hematocrit 36.3 L Mean Corpuscular Volume 97.8 Mean Corpuscular Hemoglobin 30.2 Mean Corpuscular Hemoglobin Concent 30.9 L Red Cell Distribution Width 14.8 H Platelet Count 259 Mean Platelet Volume 12.5 H Neutrophils % 61.7 Lymphocytes % 24.7 Monocytes % 8.8 Eosinophils % 4.0 Basophils % 0.5 Nucleated Red Blood Cells % 0.0 Neutrophils # 5.4 Lymphocytes # 2.2 Monocytes # 0.8 Eosinophils # 0.4 Basophils # 0.0 Nucleated Red Blood Cells # 0.0 Sodium Level 144 Potassium Level 3.3 L Chloride Level 106 Carbon Dioxide Level 28 Anion Gap 13 Blood Urea Nitrogen 12 Creatinine 0.81 Glucose Level 117 Calcium Level 8.8 Total Bilirubin 0.1 L Direct Bilirubin 0.00 Indirect Bilirubin 0.1 Aspartate Amino Transf (AST/SGOT) 15 Alanine Aminotransferase (ALT/SGPT) 22 Alkaline Phosphatase 73 Total Protein 6.3 Albumin 3.0 L Globulin 3.30 H Albumin/Globulin Ratio 0.90 Test 01/15/17 07:55 Bedside Glucose 117 Medications Medications Current Medications Enoxaparin Sodium (Lovenox) 80 mg BID SC Last administered on 01/14/17t 20:44; Admin Dose 80 MG; Start 01/13/17 at 09:00 Acetaminophen/ Hydrocodone Bitart ([place] (10/325)) 1 tab Q6H PRN PO PAIN Last administered on 01/15/17 06:19; Admin Dose 1 TAB; Start 01/13/17 at 00:30 Meloxicam (Mobic) 15 mg DAILY PO Last administered on 01/14/17 08:57; Admin Dose 15 MG; Start 01/13/17 at 09:00 Pantoprazole (Protonix Tab) 40 mg DAILY@06 PO Last administered on 01/15/17 06 :11; Admin Dose 40 MG; Start 01/13/17 at 06:00 Atorvastatin Calcium (Lipitor) 20 mg HS PO Last administered on 01/14/17 20:42 ; Admin Dose 20 MG; Start 01/13/17 at 21:00 EZETIMIBE (Zetia) 10 mg DAILY PO Last administered on 01/14/17 09:30; Admin Dose 10 MG; Start 01/13/17 at 09:00 Docusate Sodium (Colace) 200 mg BID PO Last administered on 01/14/17 20:42; Admin Dose 200 MG; Start 01/13/17 at 09:00 Polyethylene Glycol (Miralax) 17 gm DAILY NGT Last administered on 01/14/17 08 :58; Admin Dose 17 GM; Start 01/13/17 at 09:00 Bisacodyl (Dulcolax Supp) 10 mg DAILY PRN [place] CONSTIPATION; Start 01/13/17 at 08:00 Diphenhydramine HCl (Benadryl) 25 mg BID PRN PO ITCHING; Start 01/13/17 at 08: 00 Gabapentin (Neurontin) 300 mg BID PO Last administered on 01/14/17 20:43; Admin Dose 300 MG; Start 01/13/17 at 09:00 Linagliptin (Tradjenta) 5 mg DAILY PO Last administered on 01/14/17 08:55; Admin Dose 5 MG; Start 01/13/17 at 09:00 Potassium Chloride (Micro-K) 8 meq DAILY PO Last administered on 01/14/17 08: 57; Admin Dose 8 MEQ; Start 01/13/17 at 09:00 Salmeterol Xinafoate/ Fluticasone (Advair 250/50 Diskus) 1 inh BID INH Last administered on 01/14/17 20:52; Admin Dose 1 INH; Start 01/13/17 at 09:00 Solifenacin (Vesicare) 5 mg DAILY PO Last administered on 01/14/17 08:58; Admin Dose 5 MG; Start 01/13/17 at 09:00 Miscellaneous Information 1 gm DAILY PO ; Start 01/13/17 at 09:00; Status UNV Tiotropium [place] (Spiriva) 1 inh DAILY INH Last administered on 01/14/17 08: 55; Admin Dose 1 INH; Start 01/13/17 at 09:00 Clonidine HCl (Catapres-Tts 1 Patch) 1 patch Q7D TRANSDERM Last administered on 01/13/17 09:54; Admin Dose 1 PATCH; Start 01/13/17 at 08:30 Diagnostic Test (Pha) (Accu-Chek) 1 ea Q6 XX Last administered on 01/14/17 17: 41; Admin Dose 1 EA; Start 01/14/17 at 02:00 Miscellaneous Information 1 ea NOTE XX ; Start 01/13/17 at 08:30 Glucose (Glutose) 15 gm Q15M PRN PO DECREASED GLUCOSE; Start 01/13/17 at 08:30 Glucose (Glutose) 22.5 gm Q15M PRN PO DECREASED GLUCOSE; Start 01/13/17 at 08: 30 Dextrose (D50w Syringe) 25 ml Q15M PRN IV DECREASED GLUCOSE; Start 01/13/17 at 08:30 Dextrose (D50w Syringe) 50 ml Q15M PRN IV DECREASED GLUCOSE; Start 01/13/17 at 08:30 Glucagon (Glucagen) 1 mg Q15M PRN IM DECREASED GLUCOSE; Start 01/13/17 at 08: 30 Glucose (Glutose) 15 gm Q15M PRN BUCCAL DECREASED GLUCOSE; Start 01/13/17 at 08:30 Miscellaneous Information (*Order Clarification Bulletin) Icosapent Ethyl ( Vascepa... Q8H XX ; Start 01/13/17 at 09:00 Flecainide Acetate 150 mg 150 mg BID PO Last administered on 01/14/17 20:43; Admin Dose 150 MG; Start 01/13/17 at 09:00 Vancomycin HCl 1.5 gm/Sodium Chloride 250 ml @ 83.333 mls/ hr Q24H IVPB Last administered on 01/14/17 09:00; Admin Dose 83.333 MLS/HR; Start 01/13/17 at 09 :00 Ferric Sodium Gluconate Complex/ Sodium Chloride (Ferrlecit/NS) 110 ml @ 110 mls/hr Q24H IVPB Last administered on 01/14/17t 12:08; Admin Dose 110 MLS/HR; Start 01/13/17 at 10:30; Stop 01/17/17 at 11:29 STONE HERNANDEZ MD Jan 15, 2017 09:21
[2017-01-15] MEDS: DOCUSATE SODIUM 100 MG CAP PO SCH ×2 (09:37→20:10)
[2017-01-15] MEDS: TIOTROPIUM 18 MCG CAPSULE INHA DEV INH SCH (09:37)
[2017-01-15] MEDS: POTASSIUM CHLORIDE (SR) 8 MEQ CAP PO SCH (09:37)
[2017-01-15] MEDS: SALMETEROL/FLUTICASONE 250/50 INHA INH SCH ×2 (09:37→20:10)
[2017-01-15] MEDS: POLYETHYLENE GLYCOL 17 GM PACKET NGT SCH (09:37)
[2017-01-15] MEDS: MELOXICAM 15 MG TAB PO SCH (09:38)
[2017-01-15] MEDS: GABAPENTIN 300 MG CAP PO SCH ×2 (09:38→20:10)
[2017-01-15] MEDS: FLECAINIDE 100 MG TAB PO SCH ×2 (09:38→20:11)
[2017-01-15] MEDS: LINAGLIPTIN 5 MG TABLET PO SCH (09:39)
[2017-01-15] MEDS: SOLIFENACIN 5 MG TAB PO SCH (09:39)
[2017-01-15] MEDS: ENOXAPARIN 80 MG/0.8 ML SYG SC SCH ×2 (09:42→20:14)
[2017-01-15] MEDS: VANCOMYCIN 1.5 GM in SOD CHLORIDE 0.9% 250 ML IVPB SCH (09:43)
[2017-01-15] MEDS ORDERED: MAGNESIUM SULFATE 3 GM in DEXTROSE 5% 100 ML IVPB ONE (10:00)
[2017-01-15] MEDS: SOD FERRIC GLUC COMPLX 125 MG in SOD CHLORIDE 0.9% 100 ML IVPB SCH (12:06)
[2017-01-15] MEDS: FISH OIL 1,000 MG CAP PO SCH (14:27)
--- NOTE | 2017-01-15 18:29 | CONS ---
Date/Time of Note Date/Time of Note DATE: 01/15/17 TIME: 18:29 Assessment/Plan Assessment/Plan Chief Complaint/Hosp Course ANEMIA- N CYTIC WITH INCREASED RDW + ACD LOOKS COMPENSATED CONT TO MONITOR BLOOD COUNT CLOSELY MONITOR FOR BLEEDING AND HEMOLYSIS HYPERCOAGULABLE STATE WITH HX DVT CONT LOVENOX h/o diastolic heart failure, cardiac arrhythmia (unclear details) on flecainide, DM, HTN, HL, bedbound state for 10+ years, recent abdominal hernia repair Problems: Consultation Date/Type/Reason Admit Date/Time Jan 12, 2017 at 22:02 Initial Consult Date 01/13/17 Type of Consultation: hemeon Referring Provider: STONE HERNANDEZ MD 24 HR Interval Summary Free Text/Dictation no new events Exam/Review of Systems Vital Signs Vitals Vital Signs Date Time Temp Pulse Resp B/P Pulse Ox O2 Delivery O2 Flow Rate FiO2 01/15/17 16:48 2.0 01/15/17 16:47 70 20 98 Nasal Cannula 01/15/17 16:11 98.3 127/56 Intake and Output 01/14/17 01/14/17 01/15/17 15:00 23:00 07:00 Intake Total 250 ml 720 ml 500 ml Balance 250 ml 720 ml 500 ml Exam Constitutional: alert, oriented Psych: anxiety Head: atraumatic, normocephalic Neck: No jvd (difficult to examine but appears to be 7-8cm) Respiratory: diminished breath sounds, No clear to auscultation Cardiovascular: edema (trace), regular rate and rhythm, No systolic murmur Gastrointestinal: non-tender, other (surgical healing wound noted ), soft Musculoskeletal: nl extremities to inspection Neurological: nl mental status, nl speech Skin: No rash or lesions Results Result Diagram: 01/15/1751001/15/1711 Results 24 hrs Laboratory Tests Test 01/14/17 20:51 01/15/17 05:11 01/15/17 07:55 01/15/17 12:08 Bedside Glucose 111 117 120 White Blood Count 8.7 Red Blood Count 3.71 L Hemoglobin 11.2 L Hematocrit 36.3 L Mean Corpuscular Volume 97.8 Mean Corpuscular Hemoglobin 30.2 Mean Corpuscular Hemoglobin Concent 30.9 L Red Cell Distribution Width 14.8 H Platelet Count 259 Mean Platelet Volume 12.5 H Neutrophils % 61.7 Lymphocytes % 24.7 Monocytes % 8.8 Eosinophils % 4.0 Basophils % 0.5 Nucleated Red Blood Cells % 0.0 Neutrophils # 5.4 Lymphocytes # 2.2 Monocytes # 0.8 Eosinophils # 0.4 Basophils # 0.0 Nucleated Red Blood Cells # 0.0 Sodium Level 144 Potassium Level 3.3 L Chloride Level 106 Carbon Dioxide Level 28 Anion Gap 13 Blood Urea Nitrogen 12 Creatinine 0.81 Glucose Level 117 Calcium Level 8.8 Total Bilirubin 0.1 L Direct Bilirubin 0.00 Indirect Bilirubin 0.1 Aspartate Amino Transf (AST/SGOT) 15 Alanine Aminotransferase (ALT/SGPT) 22 Alkaline Phosphatase 73 Total Protein 6.3 Albumin 3.0 L Globulin 3.30 H Albumin/Globulin Ratio 0.90 Test 01/15/17 18:02 Bedside Glucose 112 Medications Medications Current Medications Enoxaparin Sodium (Lovenox) 80 mg BID SC Last administered on 01/15/17 09:42; Admin Dose 80 MG; Start 01/13/17 at 09:00 Acetaminophen/ Hydrocodone Bitart ([place] (10/325)) 1 tab Q6H PRN PO PAIN Last administered on 01/15/17 14:27; Admin Dose 1 TAB; Start 01/13/17 at 00:30 Meloxicam (Mobic) 15 mg DAILY PO Last administered on 01/15/17 09:38; Admin Dose 15 MG; Start 01/13/17 at 09:00 Pantoprazole (Protonix Tab) 40 mg DAILY@06 PO Last administered on 01/15/17 06 :11; Admin Dose 40 MG; Start 01/13/17 at 06:00 Atorvastatin Calcium (Lipitor) 20 mg HS PO Last administered on 01/14/17 20:42 ; Admin Dose 20 MG; Start 01/13/17 at 21:00 EZETIMIBE (Zetia) 10 mg DAILY PO Last administered on 01/15/17 09:00; Admin Dose 10 MG; Start 01/13/17 at 09:00 Docusate Sodium (Colace) 200 mg BID PO Last administered on 01/15/17 09:37; Admin Dose 200 MG; Start 01/13/17 at 09:00 Polyethylene Glycol (Miralax) 17 gm DAILY NGT Last administered on 01/15/17 09 :37; Admin Dose 17 GM; Start 01/13/17 at 09:00 Bisacodyl (Dulcolax Supp) 10 mg DAILY PRN [place] CONSTIPATION; Start 01/13/17 at 08:00 Diphenhydramine HCl (Benadryl) 25 mg BID PRN PO ITCHING; Start 01/13/17 at 08: 00 Gabapentin (Neurontin) 300 mg BID PO Last administered on 01/15/17 09:38; Admin Dose 300 MG; Start 01/13/17 at 09:00 Linagliptin (Tradjenta) 5 mg DAILY PO Last administered on 01/15/17 09:39; Admin Dose 5 MG; Start 01/13/17 at 09:00 Potassium Chloride (Micro-K) 8 meq DAILY PO Last administered on 01/15/17 09: 37; Admin Dose 8 MEQ; Start 01/13/17 at 09:00 Salmeterol Xinafoate/ Fluticasone (Advair 250/50 Diskus) 1 inh BID INH Last administered on 01/15/17 09:37; Admin Dose 1 INH; Start 01/13/17 at 09:00 Solifenacin (Vesicare) 5 mg DAILY PO Last administered on 01/15/17 09:39; Admin Dose 5 MG; Start 01/13/17 at 09:00 Fish Oil (Fish Oil) 1,000 mg DAILY PO Last administered on 01/15/17 14:27; Admin Dose 1,000 MG; Start 01/15/17 at 13:30 Tiotropium [place] (Spiriva) 1 inh DAILY INH Last administered on 01/15/17 09: 37; Admin Dose 1 INH; Start 01/13/17 at 09:00 Clonidine HCl (Catapres-Tts 1 Patch) 1 patch Q7D TRANSDERM Last administered on 01/13/17 09:54; Admin Dose 1 PATCH; Start 01/13/17 at 08:30 Diagnostic Test (Pha) (Accu-Chek) 1 ea Q6 XX Last administered on 01/14/17 17: 41; Admin Dose 1 EA; Start 01/14/17 at 02:00 Miscellaneous Information 1 ea NOTE XX ; Start 01/13/17 at 08:30 Glucose (Glutose) 15 gm Q15M PRN PO DECREASED GLUCOSE; Start 01/13/17 at 08:30 Glucose (Glutose) 22.5 gm Q15M PRN PO DECREASED GLUCOSE; Start 01/13/17 at 08: 30 Dextrose (D50w Syringe) 25 ml Q15M PRN IV DECREASED GLUCOSE; Start 01/13/17 at 08:30 Dextrose (D50w Syringe) 50 ml Q15M PRN IV DECREASED GLUCOSE; Start 01/13/17 at 08:30 Glucagon (Glucagen) 1 mg Q15M PRN IM DECREASED GLUCOSE; Start 01/13/17 at 08: 30 Glucose (Glutose) 15 gm Q15M PRN BUCCAL DECREASED GLUCOSE; Start 01/13/17 at 08:30 Flecainide Acetate 150 mg 150 mg BID PO Last administered on 01/15/17 09:38; Admin Dose 150 MG; Start 01/13/17 at 09:00 Vancomycin HCl 1.5 gm/Sodium Chloride 250 ml @ 83.333 mls/ hr Q24H IVPB Last administered on 01/15/17 09:43; Admin Dose 83.333 MLS/HR; Start 01/13/17 at 09 :00 Ferric Sodium Gluconate Complex/ Sodium Chloride (Ferrlecit/NS) 110 ml @ 110 mls/hr Q24H IVPB Last administered on 01/15/17 12:06; Admin Dose 110 MLS/HR; Start 01/13/17 at 10:30; Stop 01/17/17 at 11:29 Miscellaneous Information (*Rx Drug Level Order Reminder*) VANCO TROUGH @ 0, 800 ON ... ONCE ONCE XX ; Start 01/16/17 at 08:00; Stop 01/16/17 at 08:01 JORGE PEREZ MD Jan 15, 2017 18:29
[2017-01-15] MEDS: ATORVASTATIN 20 MG TAB PO SCH (20:11)
[2017-01-16] VITALS (12 sets, daily range): BP systolic 100–128; BP diastolic 46–64; PULSE 66–78; RESP 18–22
[2017-01-16] MEDS: HYDROCODONE/APAP (10/325) TAB PO PRN ×3 (02:39→14:54)
[2017-01-16] MEDS: PANTOPRAZOLE (EC) 40 MG TAB PO SCH (05:41)
[2017-01-16] MEDS: FUROSEMIDE 20 MG INJ IV SCH ×2 (05:42→17:42)
[2017-01-16] MEDS: ACCU-CHEK XX SCH ×8 (05:43→21:04)
[2017-01-16] MEDS ORDERED: LIDOCAINE 1% (MDV) 20 ML INJ INJ ONE (07:30)
[2017-01-16] MEDS ORDERED: TRIAMCINOLONE ACET SUSP 200 MG INJ INJ ONE ×2 (07:30→08:00)
[2017-01-16] MEDS: INSULIN ASPART [NOVOLOG] 3 ML PEN SC SCH ×4 (07:30→20:59)
[2017-01-16] MEDS: ALBUTEROL/IPRATROPIUM (NEB) 3 ML AMP HHN SCH ×3 (08:05→23:48)
[2017-01-16 08:49] LABS: BASOPHIL # 0.1 10^3/ul (0.0-0.1); BASOPHILS % 0.7 % (0.0-2.0); EOSINOPHILS # 0.4 10^3/ul (0.0-0.5); EOSINOPHILS % 4.6 % (0.0-7.0); HEMATOCRIT 37.3 % (37.0-47.0); HEMOGLOBIN 11.4 g/dl (12.0-16.0); LYMPHOCYTES # 1.6 10^3/ul (0.8-2.9); LYMPHOCYTES % 18.7 % (15.0-51.0); MEAN CORPUSCULAR HEMOGLOBIN 30.3 pg (29.0-33.0); MEAN CORPUSCULAR HGB CONC 30.6 g/dl (32.0-37.0); MEAN CORPUSCULAR VOLUME 99.2 fl (82.0-101.0); MEAN PLATELET VOLUME 12.6 fl (7.4-10.4); MONOCYTE # 0.8 10^3/ul (0.3-0.9); NEUTROPHIL # 5.5 10^3/ul (1.6-7.5); NEUTROPHILS % 66.6 % (39.0-77.0); PLATELET COUNT 241 10^3/UL (140-415); RED BLOOD COUNT 3.76 10^6/ul (4.20-5.40); RED CELL DISTRIBUTION WIDTH 14.6 % (11.5-14.5); WHITE BLOOD COUNT 8.3 10^3/ul (4.8-10.8)
[2017-01-16] MEDS: FISH OIL 1,000 MG CAP PO SCH (08:56)
[2017-01-16] MEDS: GABAPENTIN 300 MG CAP PO SCH ×2 (08:56→20:59)
[2017-01-16] MEDS: DOCUSATE SODIUM 100 MG CAP PO SCH ×2 (08:56→20:58)
[2017-01-16] MEDS: EZETIMIBE 10 MG TAB PO SCH (08:57)
[2017-01-16] MEDS: TIOTROPIUM 18 MCG CAPSULE INHA DEV INH SCH (08:57)
[2017-01-16] MEDS: SOLIFENACIN 5 MG TAB PO SCH (08:57)
[2017-01-16 09:04] LABS: ALBUMIN 3.1 g/dl (3.3-4.9); ALBUMIN/GLOBULIN RATIO 0.91; BILIRUBIN,INDIRECT 0.1 mg/dl (0-1.1); BILIRUBIN,TOTAL 0.1 mg/dl (0.2-1.3); CALCIUM 8.9 mg/dl (8.4-10.2); CREATININE 0.85 mg/dl (0.44-1.00); MAGNESIUM 1.7 mg/dl (1.7-2.5); POTASSIUM 3.6 mmol/L (3.5-5.1); TOTAL PROTEIN 6.5 g/dl (6.1-8.1)
[2017-01-16] MEDS: FLECAINIDE 100 MG TAB PO SCH ×2 (09:05→20:58)
[2017-01-16] MEDS: MELOXICAM 15 MG TAB PO SCH (09:05)
[2017-01-16] MEDS: POTASSIUM CHLORIDE (SR) 8 MEQ CAP PO SCH (09:05)
[2017-01-16] MEDS: POLYETHYLENE GLYCOL 17 GM PACKET NGT SCH (09:06)
[2017-01-16] MEDS: ENOXAPARIN 80 MG/0.8 ML SYG SC SCH ×2 (09:08→21:03)
[2017-01-16] MEDS: LINAGLIPTIN 5 MG TABLET PO SCH (09:14)
[2017-01-16] MEDS: SALMETEROL/FLUTICASONE 250/50 INHA INH SCH ×2 (09:15→20:58)
[2017-01-16] MEDS: metFORMIN 500 MG TAB PO SCH ×2 (09:18→17:42)
[2017-01-16] MEDS: VANCOMYCIN 1.5 GM in SOD CHLORIDE 0.9% 250 ML IVPB SCH (10:24)
[2017-01-16] MEDS: SOD FERRIC GLUC COMPLX 125 MG in SOD CHLORIDE 0.9% 100 ML IVPB SCH (12:14)
--- NOTE | 2017-01-16 12:41 | CONS ---
Date/Time of Note Date/Time of Note DATE: 01/16/17 TIME: 12:40 Assessment/Plan Assessment/Plan Chief Complaint/Hosp Course ANEMIA- N CYTIC WITH INCREASED RDW LOOKS COMPENSATED CONT TO MONITOR BLOOD COUNT CLOSELY MONITOR FOR BLEEDING AND HEMOLYSIS HYPERCOAGULABLE STATE WITH HX DVT CONT LOVENOX h/o diastolic heart failure, cardiac arrhythmia (unclear details) on flecainide, DM, HTN, HL, bedbound state for 10+ years, recent abdominal hernia repair Problems: Consultation Date/Type/Reason Admit Date/Time Jan 12, 2017 at 22:02 Initial Consult Date 01/13/17 Type of Consultation: [facility] Referring Provider: STONE HERNANDEZ MD 24 HR Interval Summary Free Text/Dictation ALL NOTED Exam/Review of Systems Vital Signs Vitals Vital Signs Date Time Temp Pulse Resp B/P Pulse Ox O2 Delivery O2 Flow Rate FiO2 01/16/17 12:35 75 01/16/17 12:05 98.3 18 128/63 93 01/16/17 08:14 Nasal Cannula 2.0 Intake and Output 01/15/17 01/15/17 01/16/17 14:59 22:59 06:59 Intake Total 450 ml Balance 450 ml Exam Constitutional: alert, oriented Psych: anxiety Head: atraumatic, normocephalic Neck: No jvd (difficult to examine but appears to be 7-8cm) Respiratory: diminished breath sounds, No clear to auscultation Cardiovascular: edema (trace), regular rate and rhythm, No systolic murmur Gastrointestinal: non-tender, other (surgical healing wound noted ), soft Musculoskeletal: nl extremities to inspection Neurological: nl mental status, nl speech Skin: No rash or lesions Results Result Diagram: 01/16/17 0749 01/16/17 0749 Results 24 hrs Laboratory Tests Test 01/15/17 18:02 01/15/17 20:16 01/16/17 07:48 01/16/17 07:49 Bedside Glucose 112 121 107 White Blood Count 8.3 Red Blood Count 3.76 L Hemoglobin 11.4 L Hematocrit 37.3 Mean Corpuscular Volume 99.2 Mean Corpuscular Hemoglobin 30.3 Mean Corpuscular Hemoglobin Concent 30.6 L Red Cell Distribution Width 14.6 H Platelet Count 241 Mean Platelet Volume 12.6 H Neutrophils % 66.6 Lymphocytes % 18.7 Monocytes % 9.0 Eosinophils % 4.6 Basophils % 0.7 Nucleated Red Blood Cells % 0.0 Neutrophils # 5.5 Lymphocytes # 1.6 Monocytes # 0.8 Eosinophils # 0.4 Basophils # 0.1 Nucleated Red Blood Cells # 0.0 Sodium Level 141 Potassium Level 3.6 Chloride Level 100 Carbon Dioxide Level 33 H Anion Gap 12 Blood Urea Nitrogen 13 Creatinine 0.85 Glucose Level 113 Calcium Level 8.9 Magnesium Level 1.7 Total Bilirubin 0.1 L Direct Bilirubin 0.00 Indirect Bilirubin 0.1 Aspartate Amino Transf (AST/SGOT) 14 L Alanine Aminotransferase (ALT/SGPT) 23 Alkaline Phosphatase 71 Total Protein 6.5 Albumin 3.1 L Globulin 3.40 H Albumin/Globulin Ratio 0.91 Vancomycin Level Trough 10.3 Medications Medications Current Medications Enoxaparin Sodium (Lovenox) 80 mg BID SC Last administered on 01/16/17 09:08; Admin Dose 80 MG; Start 01/13/17 at 09:00 Acetaminophen/ Hydrocodone Bitart ([place] (10/325)) 1 tab Q6H PRN PO PAIN Last administered on 01/16/17 09:06; Admin Dose 1 TAB; Start 01/13/17 at 00:30 Meloxicam (Mobic) 15 mg DAILY PO Last administered on 01/16/17 09:05; Admin Dose 15 MG; Start 01/13/17 at 09:00 Pantoprazole (Protonix Tab) 40 mg DAILY@06 PO Last administered on 01/16/17 05 :41; Admin Dose 40 MG; Start 01/13/17 at 06:00 Atorvastatin Calcium (Lipitor) 20 mg HS PO Last administered on 01/15/17 20:11 ; Admin Dose 20 MG; Start 01/13/17 at 21:00 EZETIMIBE (Zetia) 10 mg DAILY PO Last administered on 01/16/17 08:57; Admin Dose 10 MG; Start 01/13/17 at 09:00 Docusate Sodium (Colace) 200 mg BID PO Last administered on 01/16/17 08:56; Admin Dose 200 MG; Start 01/13/17 at 09:00 Polyethylene Glycol (Miralax) 17 gm DAILY NGT Last administered on 01/16/17 09 :06; Admin Dose 17 GM; Start 01/13/17 at 09:00 Bisacodyl (Dulcolax Supp) 10 mg DAILY PRN [place] CONSTIPATION; Start 01/13/17 at 08:00 Diphenhydramine HCl (Benadryl) 25 mg BID PRN PO ITCHING; Start 01/13/17 at 08: 00 Gabapentin (Neurontin) 300 mg BID PO Last administered on 01/16/17 08:56; Admin Dose 300 MG; Start 01/13/17 at 09:00 Linagliptin (Tradjenta) 5 mg DAILY PO Last administered on 01/16/17 09:14; Admin Dose 5 MG; Start 01/13/17 at 09:00 Potassium Chloride (Micro-K) 8 meq DAILY PO Last administered on 01/16/17 09: 05; Admin Dose 8 MEQ; Start 01/13/17 at 09:00 Salmeterol Xinafoate/ Fluticasone (Advair 250/50 Diskus) 1 inh BID INH Last administered on 01/16/17 09:15; Admin Dose 1 INH; Start 01/13/17 at 09:00 Solifenacin (Vesicare) 5 mg DAILY PO Last administered on 01/16/17 08:57; Admin Dose 5 MG; Start 01/13/17 at 09:00 Fish Oil (Fish Oil) 1,000 mg DAILY PO Last administered on 01/16/17 08:56; Admin Dose 1,000 MG; Start 01/15/17 at 13:30 Tiotropium [place] (Spiriva) 1 inh DAILY INH Last administered on 01/16/17 08: 57; Admin Dose 1 INH; Start 01/13/17 at 09:00 Clonidine HCl (Catapres-Tts 1 Patch) 1 patch Q7D TRANSDERM Last administered on 01/13/17 09:54; Admin Dose 1 PATCH; Start 01/13/17 at 08:30 Diagnostic Test (Pha) (Accu-Chek) 1 ea Q6 XX Last administered on 01/14/17 17: 41; Admin Dose 1 EA; Start 01/14/17 at 02:00 Miscellaneous Information 1 ea NOTE XX ; Start 01/13/17 at 08:30 Glucose (Glutose) 15 gm Q15M PRN PO DECREASED GLUCOSE; Start 01/13/17 at 08:30 Glucose (Glutose) 22.5 gm Q15M PRN PO DECREASED GLUCOSE; Start 01/13/17 at 08: 30 Dextrose (D50w Syringe) 25 ml Q15M PRN IV DECREASED GLUCOSE; Start 01/13/17 at 08:30 Dextrose (D50w Syringe) 50 ml Q15M PRN IV DECREASED GLUCOSE; Start 01/13/17 at 08:30 Glucagon (Glucagen) 1 mg Q15M PRN IM DECREASED GLUCOSE; Start 01/13/17 at 08: 30 Glucose (Glutose) 15 gm Q15M PRN BUCCAL DECREASED GLUCOSE; Start 01/13/17 at 08:30 Flecainide Acetate 150 mg 150 mg BID PO Last administered on 01/16/17 09:05; Admin Dose 150 MG; Start 01/13/17 at 09:00 Vancomycin HCl 1.5 gm/Sodium Chloride 250 ml @ 83.333 mls/ hr Q24H IVPB Last administered on 01/16/17 10:24; Admin Dose 83.333 MLS/HR; Start 01/13/17 at 09 :00; Stop 01/16/17 at 14:00 Ferric Sodium Gluconate Complex 125 mg/Sodium Chloride 110 ml @ 110 mls/hr Q24H IVPB Last administered on 01/16/17 12:14; Admin Dose 110 MLS/HR; Start 01/13/17 at 10:30; Stop 01/17/17 at 11:29 Vancomycin HCl/ Sodium Chloride (Vancocin/NS) 500 ml @ 125 mls/hr Q24H IVPB ; Start 01/17/17 at 10:00 JORGE PEREZ MD Jan 16, 2017 12:41
[2017-01-16] MEDS: ATORVASTATIN 20 MG TAB PO SCH (20:59)
--- NOTE | 2017-01-16 21:38 | PN ---
Date/Time of Note Date/Time of Note DATE: 01/16/17 TIME: 21:33 Assessment/Plan VTE Prophylaxis VTE Prophylaxis Intervention: ambulation, anti-embolic stocking, LMWH VTE Contraindication Reason: peripheral vascular disease Lines/Catheters IV Catheter Type (from Nrsg): [place] [employer] line still needed: No Urinary Cath still in place: No Reason Cath still needed: urinary retention Assessment/Plan Assessment/Plan 1. Severe constipation with no bowel movement lat 15 days; she had 1 bowel movements, with no trace of blood, no melena. She was passing gases.After the repair of incarcerated umbilical hernia she feels less pain in the abdomen. 2. Bad odor from the urine with recurrent hematuria.- on Amoxil and Levaquin improved. 3.Low abdominal pain and llq abd pain with mild rebound. 4. Leukocytosis- from 9 to 7 today. stable. 5. History of having palpitations and bradycardia; lowest rate 45. 6. History of having bronchial asthma, now stable. 7. Wound of the postsurgical midline scar, right-sided abdomen, and a new left pararecal scar of new surgery done in [facility], well healed(01/05/17 approximately). 8. Status post cholecystectomy. 9. Postmenstrual syndrome. 10. Anxiety. 11. Constantly hungry. 12. Dyslipidemia. 13. Diabetes type 2. 14. History of having carbon dioxide retention- was on BIPAP, now stable. 15. Anemia of chronic disease with recent loss. H/H stable. 16. History of chronic kidney disease, improved. 17. History of having low iron and low magnesium levels- corrected. 18. Pain syndrome-on norco. 19. Major depression. 20. Altered level of consciousness- on and off. 21. Diverticulitis. 22. Left-sided chest pain, worse after the discharge and yesterday, today not as troublesome. 23.Urinary retention 24.Trophic changes of both legs with change of a color to dark. 25.Pilling of the skin of nail beds of both hands with deformities and trace of blood and swelling. 26.Bedridden for about 11 years being almost totally dependent from outside help. 27.Decubitus of the left gluteal area with mild redness of the calcaneal skin, stable. 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 32.Mindless eating with preserved awareness and inability to stop dooing that. Most of t he time now she continues to repeat the ritual of eating bu without being able to stop it from occurring (automatic behavior ). 33.Chronic norco,percocet, and other controlled substance user. 34.Bradycardia- now normal sinus rhythm on monitor. 35.Morbid obesity; Obesity hypopnea syndrome,hypercarbia with Pc02 57( average) 36.Hallucinations(mainly visual), confusion, fear of on and off 37.Hypertension, now normotensive. Congestive heart failure exacerbation with pulmonary edema.Improving 38.Low magnesium and low iron levels 39.Pannus 40.Morbid obesity due to of excess calories 41.Spinal stenosis with radiculopathy 42.Urinary retention 43.Cervicobrachial syndrome with pain and decreased rom 44.Agarophobia. 45.Claustrophobia Cont'd Hospitalization Reason: Called dr. Onel lynn injections done. Plan to d/c in am. Cont'd Hospitalization Reason: plan to d/c in am. Subjective 24 Hr Interval Summary Free Text/Dictation I see objects, people, scary things. I am afraid of dying. Will I dye ? Constitutional: chills, disoriented, improved, requiring IVF, requiring O2, No diaphoresis, No febrile, No no complaints, No other, No poor po Eyes: discharge, redness, No no complaints, No other, No pain, No visual change ENT: congestion, dysphagia Respiratory: cough, shortness of breath, No no complaints, No other, No pain, No pleuritic pain, No sputum, No wheezing Cardiovascular: chest pain, lightheadedness, orthopenea, No edema, No no complaints, No other, No palpitations, No paroxysmal nocturnal dyspnea Gastrointestinal: constipation, decreased appetite, flatus, passing stool, No blood, No diarrhea, No nausea, No no complaints, No other, No pain, No vomiting Genitourinary: dysuria, flank pain, No bleeding, No discharge, No hematuria, No no complaints, No other Musculoskeletal: back pain, bone/joint pain, neck pain, No no complaints, No other, No restricted range of motion, No swelling Skin: erythema, pruritis, No bruising, No laceration, No no complaints, No other, No rash, No skin lesions Neurologic: confusion, dizziness, No focal-weakness, No headache, No no complaints, No other, No seizure, No syncope Psychological: anxiety, confusion, depression, No nl mood/affect, No no complaints, No other, No suicidal Exam/Review of Systems Vital Signs Vitals Vital Signs Date Time Temp Pulse Resp B/P Pulse Ox O2 Delivery O2 Flow Rate FiO2 01/16/17 20:17 78 01/16/17 20:00 98.9 18 110/64 96 01/16/17 16:47 Nasal Cannula 2.0 Intake and Output 01/15/17 01/15/17 01/16/17 15:00 23:00 07:00 Intake Total 450 ml Balance 450 ml Exam Constitutional: alert, distress, frail, obese, well developed, No non-verbal, No oriented, No other Psych: anxiety, confusion, depression, No nl mood/affect, No no complaints, No other, No suicidal Head: atraumatic, normocephalic, No hematomas, No lacerations, No other Eyes: EOMI, PERRL, nl lids, No fundi, disc, No icteric, No nl conjunctiva, No nl sclera, No other ENMT: nl nasal mucosa & septum, No intubated, No mucosa pink and moist, No nl external ears & nose, No nl lips & teeth, No other, No tympanic membranes Neck: bruits, jvd, nuchal rigidity, thyromegaly, No masses, No non-tender, No other, No supple Respiratory: clear to auscultation, congested cough, No crackles/rales, No diminished breath sounds, No intercostal retraction, No labored breathing, No normal air movement, No other, No respirations, No tactile fremitus, No wheezing Cardiovascular: bruits, jugular venous distention (JVD), regular rate and rhythm, systolic murmur, No S3, No S4, No diastolic murmur, No edema, No gallop, No irregular rhythm, No murmurs/extra sounds, No nl pulses, No other, No rub Gastrointestinal: distended, nl liver, spleen, soft, surgical scars, No ascites, No bowel sounds, No firm, No hepatomegaly, No mass, No non-tender , No other, No rebound or guarding, No splenomegaly, No tender Musculoskeletal: joint tenderness, muscle tone, muscle weakness, other (s/p joint injection.) Extremities: calf tenderness, pitting pedal edema Neurological: [employer] II-XII intact (hearing impairment.), DTR's symmetric ( deminished.), confused, nl mental status (on and off confused.), nl strength Skin: laceration, nl turgor (decreased.), puncture, No diaphoresis, No ecchymosis, No other, No rash or lesions Results Result Diagram: 01/16/17 0749 01/16/17 0749 Results 24 hrs Laboratory Tests Test 01/16/17 07:48 01/16/17 07:49 01/16/17 12:20 01/16/17 17:44 Bedside Glucose 107 180 174 White Blood Count 8.3 Red Blood Count 3.76 L Hemoglobin 11.4 L Hematocrit 37.3 Mean Corpuscular Volume 99.2 Mean Corpuscular Hemoglobin 30.3 Mean Corpuscular Hemoglobin Concent 30.6 L Red Cell Distribution Width 14.6 H Platelet Count 241 Mean Platelet Volume 12.6 H Neutrophils % 66.6 Lymphocytes % 18.7 Monocytes % 9.0 Eosinophils % 4.6 Basophils % 0.7 Nucleated Red Blood Cells % 0.0 Neutrophils # 5.5 Lymphocytes # 1.6 Monocytes # 0.8 Eosinophils # 0.4 Basophils # 0.1 Nucleated Red Blood Cells # 0.0 Sodium Level 141 Potassium Level 3.6 Chloride Level 100 Carbon Dioxide Level 33 H Anion Gap 12 Blood Urea Nitrogen 13 Creatinine 0.85 Glucose Level 113 Calcium Level 8.9 Magnesium Level 1.7 Total Bilirubin 0.1 L Direct Bilirubin 0.00 Indirect Bilirubin 0.1 Aspartate Amino Transf (AST/SGOT) 14 L Alanine Aminotransferase (ALT/SGPT) 23 Alkaline Phosphatase 71 Total Protein 6.5 Albumin 3.1 L Globulin 3.40 H Albumin/Globulin Ratio 0.91 Vancomycin Level Trough 10.3 Test 01/16/17 20:07 Bedside Glucose 156 Medications Medications Current Medications Enoxaparin Sodium (Lovenox) 80 mg BID SC Last administered on 01/16/17t 21:03; Admin Dose 80 MG; Start 01/13/17 at 09:00 Acetaminophen/ Hydrocodone Bitart ([place] (10/325)) 1 tab Q6H PRN PO PAIN Last administered on 01/16/17 14:54; Admin Dose 1 TAB; Start 01/13/17 at 00:30 Meloxicam (Mobic) 15 mg DAILY PO Last administered on 01/16/17 09:05; Admin Dose 15 MG; Start 01/13/17 at 09:00 Pantoprazole (Protonix Tab) 40 mg DAILY@06 PO Last administered on 01/16/17 05 :41; Admin Dose 40 MG; Start 01/13/17 at 06:00 Atorvastatin Calcium (Lipitor) 20 mg HS PO Last administered on 01/16/17 20:59 ; Admin Dose 20 MG; Start 01/13/17 at 21:00 EZETIMIBE (Zetia) 10 mg DAILY PO Last administered on 01/16/17 08:57; Admin Dose 10 MG; Start 01/13/17 at 09:00 Docusate Sodium (Colace) 200 mg BID PO Last administered on 01/16/17 20:58; Admin Dose 200 MG; Start 01/13/17 at 09:00 Polyethylene Glycol (Miralax) 17 gm DAILY NGT Last administered on 01/16/17 09 :06; Admin Dose 17 GM; Start 01/13/17 at 09:00 Bisacodyl (Dulcolax Supp) 10 mg DAILY PRN [place] CONSTIPATION; Start 01/13/17 at 08:00 Diphenhydramine HCl (Benadryl) 25 mg BID PRN PO ITCHING; Start 01/13/17 at 08: 00 Gabapentin (Neurontin) 300 mg BID PO Last administered on 01/16/17 20:59; Admin Dose 300 MG; Start 01/13/17 at 09:00 Linagliptin (Tradjenta) 5 mg DAILY PO Last administered on 01/16/17 09:14; Admin Dose 5 MG; Start 01/13/17 at 09:00 Potassium Chloride (Micro-K) 8 meq DAILY PO Last administered on 01/16/17 09: 05; Admin Dose 8 MEQ; Start 01/13/17 at 09:00 Salmeterol Xinafoate/ Fluticasone (Advair 250/50 Diskus) 1 inh BID INH Last administered on 01/16/17 20:58; Admin Dose 1 INH; Start 01/13/17 at 09:00 Solifenacin (Vesicare) 5 mg DAILY PO Last administered on 01/16/17 08:57; Admin Dose 5 MG; Start 01/13/17 at 09:00 Fish Oil (Fish Oil) 1,000 mg DAILY PO Last administered on 01/16/17 08:56; Admin Dose 1,000 MG; Start 01/15/17 at 13:30 Tiotropium [place] (Spiriva) 1 inh DAILY INH Last administered on 01/16/17 08: 57; Admin Dose 1 INH; Start 01/13/17 at 09:00 Clonidine HCl (Catapres-Tts 1 Patch) 1 patch Q7D TRANSDERM Last administered on 01/13/17 09:54; Admin Dose 1 PATCH; Start 01/13/17 at 08:30 Diagnostic Test (Pha) (Accu-Chek) 1 ea Q6 XX Last administered on 01/14/17 17: 41; Admin Dose 1 EA; Start 01/14/17 at 02:00 Miscellaneous Information 1 ea NOTE XX ; Start 01/13/17 at 08:30 Glucose (Glutose) 15 gm Q15M PRN PO DECREASED GLUCOSE; Start 01/13/17 at 08:30 Glucose (Glutose) 22.5 gm Q15M PRN PO DECREASED GLUCOSE; Start 01/13/17 at 08: 30 Dextrose (D50w Syringe) 25 ml Q15M PRN IV DECREASED GLUCOSE; Start 01/13/17 at 08:30 Dextrose (D50w Syringe) 50 ml Q15M PRN IV DECREASED GLUCOSE; Start 01/13/17 at 08:30 Glucagon (Glucagen) 1 mg Q15M PRN IM DECREASED GLUCOSE; Start 01/13/17 at 08: 30 Glucose (Glutose) 15 gm Q15M PRN BUCCAL DECREASED GLUCOSE; Start 01/13/17 at 08:30 Flecainide Acetate 150 mg 150 mg BID PO Last administered on 01/16/17 20:58; Admin Dose 150 MG; Start 01/13/17 at 09:00 Ferric Sodium Gluconate Complex 125 mg/Sodium Chloride 110 ml @ 110 mls/hr Q24H IVPB Last administered on 01/16/17 12:14; Admin Dose 110 MLS/HR; Start 01/13/17 at 10:30; Stop 01/17/17 at 11:29 Vancomycin HCl/ Sodium Chloride (Vancocin/NS) 500 ml @ 125 mls/hr Q24H IVPB ; Start 01/17/17 at 10:00 STONE HERNANDEZ MD Jan 16, 2017 21:38
[2017-01-16] MEDS ORDERED: MAGNESIUM SULFATE 3 GM in DEXTROSE 5% 100 ML IVPB ONE (23:00)
[2017-01-17] VITALS (12 sets, daily range): BP systolic 106–132; BP diastolic 54–66; PULSE 64–75; RESP 18
[2017-01-17] MEDS: HYDROCODONE/APAP (10/325) TAB PO PRN ×4 (03:05→21:59)
[2017-01-17] MEDS: PANTOPRAZOLE (EC) 40 MG TAB PO SCH (05:27)
[2017-01-17] MEDS: ACCU-CHEK XX SCH ×8 (05:27→21:20)
[2017-01-17] MEDS: FUROSEMIDE 20 MG INJ IV SCH ×2 (05:27→17:47)
--- NOTE | 2017-01-17 08:25 | RADRPT ---
PROCEDURE: US right inguinal region CLINICAL INDICATION: Palpable lump TECHNIQUE: Multiple sonographic images of the right inguinal region were obtained utilizing a line ar array transducer with grayscale and color-flow and a Doppler imaging. The images were reviewed on a high-resolution PACS workstation. The procedure was performed with and without Valsalva maneuver. COMPARISON: CT 12/28/2016; US 12/24/2016 FINDINGS: There is a 1.4 x 1.2 x 1.9 cm cystic structure with internal debris in the right inguinal region. No evidence of hernia. RPTAT: AA IMPRESSION: Slightly complex cystic structure in the right inguinal region. Differential gliosis includes a smal l abscess versus liquefying hematoma. Clinical correlation and follow-up is needed. The finding was not seen on the recent CT from December 28. No evidence of hernia. .Edmundo Levy MD, MD Date Time Electronically viewed and signed by .Edmundo Levy MD, on 01/17/2017 08:25 .S/
[2017-01-17] MEDS: ALBUTEROL/IPRATROPIUM (NEB) 3 ML AMP HHN SCH ×2 (08:55→15:15)
[2017-01-17] MEDS: ENOXAPARIN 80 MG/0.8 ML SYG SC SCH ×3 (09:00→21:20)
[2017-01-17] MEDS: POTASSIUM CHLORIDE (SR) 8 MEQ CAP PO SCH (09:34)
[2017-01-17] MEDS: MELOXICAM 15 MG TAB PO SCH (09:35)
[2017-01-17] MEDS: EZETIMIBE 10 MG TAB PO SCH (09:35)
[2017-01-17] MEDS: GABAPENTIN 300 MG CAP PO SCH ×2 (09:35→21:14)
[2017-01-17] MEDS: FISH OIL 1,000 MG CAP PO SCH (09:35)
[2017-01-17] MEDS: SOLIFENACIN 5 MG TAB PO SCH (09:35)
[2017-01-17] MEDS: FLUCONAZOLE 200 MG TAB PO SCH (09:35)
[2017-01-17] MEDS: LINAGLIPTIN 5 MG TABLET PO SCH (09:36)
[2017-01-17] MEDS: DOCUSATE SODIUM 100 MG CAP PO SCH ×2 (09:36→21:14)
[2017-01-17] MEDS: INSULIN ASPART [NOVOLOG] 3 ML PEN SC SCH ×4 (09:37→21:00)
[2017-01-17] MEDS: TIOTROPIUM 18 MCG CAPSULE INHA DEV INH SCH (09:40)
[2017-01-17] MEDS: SALMETEROL/FLUTICASONE 250/50 INHA INH SCH ×2 (09:40→21:13)
[2017-01-17] MEDS: POLYETHYLENE GLYCOL 17 GM PACKET NGT SCH (09:41)
[2017-01-17] MEDS: metFORMIN 500 MG TAB PO SCH ×2 (09:57→17:48)
[2017-01-17] MEDS ORDERED: VANCOMYCIN 1.75 GM in NS 500 ML IVPB SCH (10:00)
[2017-01-17] MEDS: SOD FERRIC GLUC COMPLX 125 MG in SOD CHLORIDE 0.9% 100 ML IVPB SCH (12:38)
--- NOTE | 2017-01-17 16:30 | CONS ---
Date/Time of Note Date/Time of Note DATE: 01/17/17 TIME: 16:30 Assessment/Plan Assessment/Plan Chief Complaint/Hosp Course ANEMIA- N CYTIC WITH INCREASED RDW LOOKS COMPENSATED CONT TO MONITOR BLOOD COUNT CLOSELY MONITOR FOR BLEEDING AND HEMOLYSIS HYPERCOAGULABLE STATE WITH HX DVT CONT LOVENOX h/o diastolic heart failure, cardiac arrhythmia (unclear details) on flecainide, DM, HTN, HL, bedbound state for 10+ years, recent abdominal hernia repair Problems: Consultation Date/Type/Reason Admit Date/Time Jan 12, 2017 at 22:02 Initial Consult Date 01/13/17 [facility]erring Provider: STONE HERNANDEZ MD 24 HR Interval Summary Free Text/Dictation STABLE COUNT -OK Exam/Review of Systems Vital Signs Vitals Vital Signs Date Time Temp Pulse Resp B/P Pulse Ox O2 Delivery O2 Flow Rate FiO2 01/17/17 16:16 98.3 75 18 132/54 94 01/17/17 15:15 Nasal Cannula 2.0 28 Intake and Output 01/16/17 01/16/17 01/17/17 15:00 23:00 07:00 Intake Total 450 ml Balance 450 ml Exam Constitutional: alert, oriented Psych: anxiety Head: atraumatic, normocephalic Neck: No jvd (difficult to examine but appears to be 7-8cm) Respiratory: diminished breath sounds, No clear to auscultation Cardiovascular: edema (trace), regular rate and rhythm, No systolic murmur Gastrointestinal: non-tender, other (surgical healing wound noted ), soft Musculoskeletal: nl extremities to inspection Neurological: nl mental status, nl speech Skin: No rash or lesions Results Result Diagram: 01/16/17 0749 01/16/17 0749 Results 24 hrs Laboratory Tests Test 01/16/17 17:44 01/16/17 20:07 01/17/17 09:14 01/17/17 12:17 Bedside Glucose 174 156 158 171 Medications Medications Current Medications Enoxaparin Sodium (Lovenox) 80 mg BID SC Last administered on 01/17/17 13:26; Admin Dose 80 MG; Start 01/13/17 at 09:00 Acetaminophen/ Hydrocodone Bitart ([place] (10/325)) 1 tab Q6H PRN PO PAIN Last administered on 01/17/17 16:02; Admin Dose 1 TAB; Start 01/13/17 at 00:30 Meloxicam (Mobic) 15 mg DAILY PO Last administered on 01/17/17 09:35; Admin Dose 15 MG; Start 01/13/17 at 09:00 Pantoprazole (Protonix Tab) 40 mg DAILY@06 PO Last administered on 01/17/17 05 :27; Admin Dose 40 MG; Start 01/13/17 at 06:00 EZETIMIBE (Zetia) 10 mg DAILY PO Last administered on 01/17/17 09:35; Admin Dose 10 MG; Start 01/13/17 at 09:00 Docusate Sodium (Colace) 200 mg BID PO Last administered on 01/17/17 09:36; Admin Dose 200 MG; Start 01/13/17 at 09:00 Polyethylene Glycol (Miralax) 17 gm DAILY NGT Last administered on 01/17/17 09 :41; Admin Dose 17 GM; Start 01/13/17 at 09:00 Bisacodyl (Dulcolax Supp) 10 mg DAILY PRN [place] CONSTIPATION; Start 01/13/17 at 08:00 Diphenhydramine HCl (Benadryl) 25 mg BID PRN PO ITCHING; Start 01/13/17 at 08: 00 Gabapentin (Neurontin) 300 mg BID PO Last administered on 01/17/17 09:35; Admin Dose 300 MG; Start 01/13/17 at 09:00 Linagliptin (Tradjenta) 5 mg DAILY PO Last administered on 01/17/17 09:36; Admin Dose 5 MG; Start 01/13/17 at 09:00 Potassium Chloride (Micro-K) 8 meq DAILY PO Last administered on 01/17/17 09: 34; Admin Dose 8 MEQ; Start 01/13/17 at 09:00 Salmeterol Xinafoate/ Fluticasone (Advair 250/50 Diskus) 1 inh BID INH Last administered on 01/17/17 09:40; Admin Dose 1 INH; Start 01/13/17 at 09:00 Solifenacin (Vesicare) 5 mg DAILY PO Last administered on 01/17/17 09:35; Admin Dose 5 MG; Start 01/13/17 at 09:00 Fish Oil (Fish Oil) 1,000 mg DAILY PO Last administered on 01/17/17 09:35; Admin Dose 1,000 MG; Start 01/15/17 at 13:30 Tiotropium [place] (Spiriva) 1 inh DAILY INH Last administered on 01/17/17 09: 40; Admin Dose 1 INH; Start 01/13/17 at 09:00 Clonidine HCl (Catapres-Tts 1 Patch) 1 patch Q7D TRANSDERM Last administered on 01/13/17 09:54; Admin Dose 1 PATCH; Start 01/13/17 at 08:30 Diagnostic Test (Pha) (Accu-Chek) 1 ea Q6 XX Last administered on 01/17/17 12: 52; Admin Dose 1 EA; Start 01/14/17 at 02:00 Miscellaneous Information 1 ea NOTE XX ; Start 01/13/17 at 08:30 Glucose (Glutose) 15 gm Q15M PRN PO DECREASED GLUCOSE; Start 01/13/17 at 08:30 Glucose (Glutose) 22.5 gm Q15M PRN PO DECREASED GLUCOSE; Start 01/13/17 at 08: 30 Dextrose (D50w Syringe) 25 ml Q15M PRN IV DECREASED GLUCOSE; Start 01/13/17 at 08:30 Dextrose (D50w Syringe) 50 ml Q15M PRN IV DECREASED GLUCOSE; Start 01/13/17 at 08:30 Glucagon (Glucagen) 1 mg Q15M PRN IM DECREASED GLUCOSE; Start 01/13/17 at 08: 30 Glucose 15 gm 15 gm Q15M PRN BUCCAL DECREASED GLUCOSE; Start 01/13/17 at 08:30 Vancomycin HCl/ Sodium Chloride (Vancocin/NS) 500 ml @ 125 mls/hr Q24H IVPB Last administered on 01/17/17 14:14; Admin Dose 125 MLS/HR; Start 01/17/17 at 10:00; Stop 01/17/17 at 19:00 Fluconazole 200 mg 200 mg DAILY PO Last administered on 01/17/17 09:35; Admin Dose 200 MG; Start 01/17/17 at 09:00 Vancomycin HCl/ Sodium Chloride (Vancocin/NS) 500 ml @ 125 mls/hr Q24H IVPB ; Start 01/18/17 at 14:00 JORGE PEREZ MD Jan 17, 2017 16:30
--- NOTE | 2017-01-17 22:30 | CONS ---
DATE OF ADMISSION: 01/12/2017 DATE OF CONSULTATION: 01/15/2017 ORTHOPEDIC CONSULTATION CONSULTATION REQUESTED BY: Dr. Hernandez CHIEF COMPLAINT: Bilateral knee pain. HISTORY OF PRESENT ILLNESS: The patient is a 76-year-old female with a longstanding complaint of pa in in the knees due to osteoarthritis. Patient has been treated with therapy, medications and injec tions. At this time, the patient is complaining of pain in the knee, difficulty ambulating due to s welling in the knees, pain on range of motion and [id number] deformity. PHYSICAL EXAMINATION: The patient is comfortable in bed. Examination of the knees reveals no redne ss. Slight effusion in both knees. Range of motion on the right is 0 to 100 degrees, on the left 1 0 to 70 degrees with pain at extremes of motion. Parapatellar tendon is noted in both knees. Arian rtments are soft. Neurovascular status intact. DIAGNOSIS: Bilateral knee osteoarthritis. RECOMMENDATION: The patient with history of osteoarthritis with chronic pain in the knees. The pat ient desires to have steroid injections in the knees. We will request injections for the knee if no t contraindicated. Dictated By: KAYLIN ARNDT/NTS Conf#: [id number] DID#: [id number] CC: STONE HERNANDEZ MD;*EndCC*
--- NOTE | 2017-01-17 22:41 | OPR ---
DATE OF OPERATION: PROCEDURE PERFORMED: Bilateral knee steroid injection. The patient has a history of osteoarthritis in both knees. Today, she was also given Kenalog and 1% Xylocaine. A total of 80 mg of Kenalog and 12 mL of Xylocaine injected divided equally in both kne es after sterile Betadine prep. The patient tolerated the injection well. The patient will continu e with her conservative medical management for osteoarthritis in the knees. I will see the patient again upon request. Dictated By: KAYLIN ARNDT/NTS Conf#: [id number] DID#: [id number] CC: STONE HERNANDEZ MD;*EndCC*
--- NOTE | 2017-01-17 23:10 | PN ---
Date/Time of Note Date/Time of Note DATE: 01/17/17 TIME: 23:09 Assessment/Plan VTE Prophylaxis VTE Prophylaxis Intervention: ambulation, anti-embolic stocking VTE Contraindication Reason: peripheral vascular disease Lines/Catheters IV Catheter Type (from Nrsg): [place] [employer] line still needed: No Urinary Cath still in place: No Reason Cath still needed: urinary retention Assessment/Plan Assessment/Plan 1. Severe constipation with no bowel movement lat 15 days; she had 1 bowel movements, with no trace of blood, no melena. She was passing gases.After the repair of incarcerated umbilical hernia she feels less pain in the abdomen. 2. Bad odor from the urine with recurrent hematuria.- on Amoxil and Levaquin improved. 3.Low abdominal pain and llq abd pain with mild rebound. 4. Leukocytosis- from 9 to 7 today. stable. 5. History of having palpitations and bradycardia; lowest rate 45. 6. History of having bronchial asthma, now stable. 7. Wound of the postsurgical midline scar, right-sided abdomen, and a new left pararecal scar of new surgery done in [facility], well healed(01/05/17 approximately). 8. Status post cholecystectomy. 9. Postmenstrual syndrome. 10. Anxiety. 11. Constantly hungry. 12. Dyslipidemia. 13. Diabetes type 2. 14. History of having carbon dioxide retention- was on BIPAP, now stable. 15. Anemia of chronic disease with recent loss. H/H stable. 16. History of chronic kidney disease, improved. 17. History of having low iron and low magnesium levels- corrected. 18. Pain syndrome-on norco. 19. Major depression. 20. Altered level of consciousness- on and off. 21. Diverticulitis. 22. Left-sided chest pain, worse after the discharge and yesterday, today not as troublesome. 23.Urinary retention 24.Trophic changes of both legs with change of a color to dark. 25.Pilling of the skin of nail beds of both hands with deformities and trace of blood and swelling. 26.Bedridden for about 11 years being almost totally dependent from outside help. 27.Decubitus of the left gluteal area with mild redness of the calcaneal skin, stable. 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 32.Mindless eating with preserved awareness and inability to stop dooing that. Most of t he time now she continues to repeat the ritual of eating bu without being able to stop it from occurring (automatic behavior ). 33.Chronic norco,percocet, and other controlled substance user. 34.Bradycardia- now normal sinus rhythm on monitor. 35.Morbid obesity; Obesity hypopnea syndrome,hypercarbia with Pc02 57( average) 36.Hallucinations(mainly visual), confusion, fear of on and off 37.Hypertension, now normotensive. Congestive heart failure exacerbation with pulmonary edema.Improving 38.Low magnesium and low iron levels 39.Pannus 40.Morbid obesity due to of excess calories 41.Spinal stenosis with radiculopathy 42.Urinary retention 43.Cervicobrachial syndrome with pain and decreased rom 44.Agarophobia. 45.Claustrophobia Cont'd Hospitalization Reason: Called dr. Onel lynn injections done. Plan to d/c in am. Cont'd Hospitalization Reason: surgical consult pending. Subjective 24 Hr Interval Summary Free Text/Dictation Right ingunal are swelling Constitutional: diaphoresis, disoriented, no complaints, poor po, No chills, No febrile, No improved, No other, No requiring IVF, No requiring O2 Eyes: discharge, redness, No no complaints, No other, No pain, No visual change ENT: congestion, No bleeding, No discharge, No dysphagia, No no complaints, No other, No pain , No sore throat Respiratory: pain, shortness of breath, No cough, No no complaints, No other, No pleuritic pain, No sputum, No wheezing Cardiovascular: chest pain, lightheadedness, orthopenea, palpitations, No edema, No no complaints, No other, No paroxysmal nocturnal dyspnea Gastrointestinal: constipation, flatus, pain (rlq.), No blood, No decreased appetite, No diarrhea, No nausea, No no complaints, No other, No passing stool, No vomiting Genitourinary: dysuria, flank pain, No bleeding, No discharge, No hematuria, No no complaints, No other Musculoskeletal: back pain, neck pain, restricted range of motion Exam/Review of Systems Vital Signs Vitals Vital Signs Date Time Temp Pulse Resp B/P Pulse Ox O2 Delivery O2 Flow Rate FiO2 01/17/17 20:47 98.4 74 18 112/58 97 01/17/17 20:00 Nasal Cannula 2.0 01/17/17 15:15 28 Intake and Output 01/16/17 01/16/17 01/17/17 15:00 23:00 07:00 Intake Total 450 ml Balance 450 ml Exam Constitutional: distress, frail, obese, well developed, No alert, No non-verbal, No oriented, No other Psych: anxiety, depression, No confusion, No nl mood/affect, No no complaints, No other, No suicidal Head: atraumatic, normocephalic, No hematomas, No lacerations, No other Eyes: EOMI, PERRL ENMT: nl nasal mucosa & septum Neck: bruits, jvd, nuchal rigidity Respiratory: congested cough, diminished breath sounds, No clear to auscultation, No crackles/rales, No intercostal retraction, No labored breathing, No normal air movement, No other, No respirations, No tactile fremitus, No wheezing Cardiovascular: bruits, jugular venous distention (JVD), nl pulses, regular rate and rhythm, systolic murmur Gastrointestinal: bowel sounds, mass (rlq.), soft, No ascites, No distended, No firm, No hepatomegaly, No nl liver, spleen, No non-tender, No other, No rebound or guarding, No splenomegaly, No surgical scars , No tender Genitourinary - Female: CVA tenderness, nl external genitalia, No CMT, No nl adnexae, No other, No uterus Results Result Diagram: 01/16/17 0749 01/16/17 0749 Results 24 hrs Laboratory Tests Test 01/17/17 09:14 01/17/17 12:17 01/17/17 17:45 01/17/17 21:12 Bedside Glucose 158 171 146 141 Medications Medications Current Medications Enoxaparin Sodium (Lovenox) 80 mg BID SC Last administered on 01/17/17 21:20; Admin Dose 80 MG; Start 01/13/17 at 09:00 Acetaminophen/ Hydrocodone Bitart ([place] (10/325)) 1 tab Q6H PRN PO PAIN Last administered on 01/17/17 21:59; Admin Dose 1 TAB; Start 01/13/17 at 00:30 Meloxicam (Mobic) 15 mg DAILY PO Last administered on 01/17/17 09:35; Admin Dose 15 MG; Start 01/13/17 at 09:00 Pantoprazole (Protonix Tab) 40 mg DAILY@06 PO Last administered on 01/17/17 05 :27; Admin Dose 40 MG; Start 01/13/17 at 06:00 EZETIMIBE (Zetia) 10 mg DAILY PO Last administered on 01/17/17 09:35; Admin Dose 10 MG; Start 01/13/17 at 09:00 Docusate Sodium (Colace) 200 mg BID PO Last administered on 01/17/17 21:14; Admin Dose 200 MG; Start 01/13/17 at 09:00 Polyethylene Glycol (Miralax) 17 gm DAILY NGT Last administered on 01/17/17 09 :41; Admin Dose 17 GM; Start 01/13/17 at 09:00 Bisacodyl (Dulcolax Supp) 10 mg DAILY PRN [place] CONSTIPATION; Start 01/13/17 at 08:00 Diphenhydramine HCl (Benadryl) 25 mg BID PRN PO ITCHING; Start 01/13/17 at 08: 00 Gabapentin (Neurontin) 300 mg BID PO Last administered on 01/17/17 21:14; Admin Dose 300 MG; Start 01/13/17 at 09:00 Linagliptin (Tradjenta) 5 mg DAILY PO Last administered on 01/17/17 09:36; Admin Dose 5 MG; Start 01/13/17 at 09:00 Potassium Chloride (Micro-K) 8 meq DAILY PO Last administered on 01/17/17 09: 34; Admin Dose 8 MEQ; Start 01/13/17 at 09:00 Salmeterol Xinafoate/ Fluticasone (Advair 250/50 Diskus) 1 inh BID INH Last administered on 01/17/17 21:13; Admin Dose 1 INH; Start 01/13/17 at 09:00 Solifenacin (Vesicare) 5 mg DAILY PO Last administered on 01/17/17 09:35; Admin Dose 5 MG; Start 01/13/17 at 09:00 Fish Oil (Fish Oil) 1,000 mg DAILY PO Last administered on 01/17/17 09:35; Admin Dose 1,000 MG; Start 01/15/17 at 13:30 Tiotropium [place] (Spiriva) 1 inh DAILY INH Last administered on 01/17/17 09: 40; Admin Dose 1 INH; Start 01/13/17 at 09:00 Clonidine HCl (Catapres-Tts 1 Patch) 1 patch Q7D TRANSDERM Last administered on 01/13/17 09:54; Admin Dose 1 PATCH; Start 01/13/17 at 08:30 Diagnostic Test (Pha) (Accu-Chek) 1 ea Q6 XX Last administered on 01/17/17 17: 47; Admin Dose 1 EA; Start 01/14/17 at 02:00 Miscellaneous Information 1 ea NOTE XX ; Start 01/13/17 at 08:30 Glucose (Glutose) 15 gm Q15M PRN PO DECREASED GLUCOSE; Start 01/13/17 at 08:30 Glucose (Glutose) 22.5 gm Q15M PRN PO DECREASED GLUCOSE; Start 01/13/17 at 08: 30 Dextrose (D50w Syringe) 25 ml Q15M PRN IV DECREASED GLUCOSE; Start 01/13/17 at 08:30 Dextrose (D50w Syringe) 50 ml Q15M PRN IV DECREASED GLUCOSE; Start 01/13/17 at 08:30 Glucagon (Glucagen) 1 mg Q15M PRN IM DECREASED GLUCOSE; Start 01/13/17 at 08: 30 Glucose (Glutose) 15 gm Q15M PRN BUCCAL DECREASED GLUCOSE; Start 01/13/17 at 08:30 Fluconazole 200 mg 200 mg DAILY PO Last administered on 01/17/17 09:35; Admin Dose 200 MG; Start 01/17/17 at 09:00 Vancomycin HCl/ Sodium Chloride (Vancocin/NS) 500 ml @ 125 mls/hr Q24H IVPB ; Start 01/18/17 at 14:00 STONE HERNANDEZ MD Jan 17, 2017 23:10
[2017-01-18] VITALS (12 sets, daily range): BP systolic 11–118; BP diastolic 52–59; PULSE 60–69; RESP 16–18
[2017-01-18] MEDS: ALBUTEROL/IPRATROPIUM (NEB) 3 ML AMP HHN SCH ×2 (01:28→09:00)
[2017-01-18] MEDS: HYDROCODONE/APAP (10/325) TAB PO PRN ×4 (04:20→23:02)
[2017-01-18] MEDS: PANTOPRAZOLE (EC) 40 MG TAB PO SCH (05:09)
[2017-01-18] MEDS: FUROSEMIDE 20 MG INJ IV SCH (05:12)
[2017-01-18] MEDS: ACCU-CHEK XX SCH ×8 (05:13→20:55)
[2017-01-18] MEDS: INSULIN ASPART [NOVOLOG] 3 ML PEN SC SCH ×4 (07:30→20:54)
[2017-01-18 08:44] LABS: CREATININE 0.83 mg/dl (0.44-1.00)
[2017-01-18] MEDS: ENOXAPARIN 80 MG/0.8 ML SYG SC SCH ×2 (09:00→20:54)
[2017-01-18] MEDS: metFORMIN 500 MG TAB PO SCH ×2 (10:16→17:57)
[2017-01-18] MEDS: EZETIMIBE 10 MG TAB PO SCH (10:16)
[2017-01-18] MEDS: FISH OIL 1,000 MG CAP PO SCH (10:16)
[2017-01-18] MEDS: SOLIFENACIN 5 MG TAB PO SCH (10:17)
[2017-01-18] MEDS: GABAPENTIN 300 MG CAP PO SCH ×2 (10:17→20:53)
[2017-01-18] MEDS: FLUCONAZOLE 200 MG TAB PO SCH (10:17)
[2017-01-18] MEDS: POTASSIUM CHLORIDE (SR) 8 MEQ CAP PO SCH (10:17)
[2017-01-18] MEDS: DOCUSATE SODIUM 100 MG CAP PO SCH ×2 (10:17→20:53)
[2017-01-18] MEDS: LINAGLIPTIN 5 MG TABLET PO SCH (10:17)
[2017-01-18] MEDS: SALMETEROL/FLUTICASONE 250/50 INHA INH SCH ×2 (10:18→20:53)
[2017-01-18] MEDS: TIOTROPIUM 18 MCG CAPSULE INHA DEV INH SCH (10:18)
[2017-01-18] MEDS: POLYETHYLENE GLYCOL 17 GM PACKET NGT SCH (10:23)
--- NOTE | 2017-01-18 10:43 | CONS ---
Date/Time of Note Date/Time of Note DATE: 01/18/17 TIME: 10:13 Assessment/Plan Assessment/Plan Chief Complaint/Hosp Course 1.Abdominal pain: currently w RUQ pain but had report of right groin pain; concern for ?hernia -CT abdomen -wants to speak with primary before going for CT -obtain previous records of surgery -pain management 2. CHF: -diuresis -per cards 3. Bilateral knee OA : s/p steroid injection 4. Normocytic normochromic anemia: -monitor -transfuse as needed 5. UTI: -abx per sensitivity -frequent bladder emptying 6. Morbid obesity: bmi 49 -diet and exercise optimization -encourage weight loss Thank you. Patient seen and examined in collaboration with Dr. Steve Clayton. Problems: Consultation Date/Type/Reason Admit Date/Time Jan 12, 2017 at 22:02 Date of Consultation: Jan 18, 2017 Type of Consultation: surgical Reason for Consultation Abdominal pain Referring Provider: STONE HERNANDEZ MD Hx of Present Illness Ness lópez is a 76 yo woman who presented with complaints of chest pain. Pain was described as pressure. On further workup she was found to have acute on chronic heart failure. She also had multiple complaints of joint pain and more recently right abdominal pain. Upon interview she reports pain in the right upper quadrant, although she reportedly had right groin pain. US of the right groin shows 1.4 x 1.2 x 1.9 cm cystic structure with internal debris. General surgery was asked to evaluate. Constitutional: No chills, No diaphoresis, No disoriented Eyes: No discharge ENT: No dysphagia Respiratory: No cough, No shortness of breath Cardiovascular: chest pain, No palpitations Gastrointestinal: No diarrhea, No nausea, No vomiting Genitourinary: No dysuria Skin: No erythema, No pruritis, No rash Neurologic: No confusion Psychological: anxiety Past Medical History Medical History: angina, colitis, congestive heart failure, coronary artery disease, deep vein thrombosis, diabetes, gallstones, GERD, GI bleed, high cholesterol, hypertension, hypothyroid, pancreatitis, renal disease, urinary tract infection Past Surgical History cholecystectomy left hernia repair Past Surgical Hx: cholecystectomy, endoscopy, other Family History Significant Family History: no pertinent family hx Social History Alcohol Use: none Smoking Status: Former smoker Drug Use: none Exam/Review of Systems Vital Signs Vitals Vital Signs Date Time Temp Pulse Resp B/P Pulse Ox O2 Delivery O2 Flow Rate FiO2 01/18/17 09:01 2.0 01/18/17 09:01 71 18 97 Nasal Cannula 01/18/17 07:52 97.9 104/57 01/17/17 15:15 28 Intake and Output 01/17/17 01/17/17 01/18/17 15:00 23:00 07:00 Intake Total 1110 ml 350 ml Balance 1110 ml 350 ml Exam Constitutional: alert, oriented Psych: nl mood/affect Head: atraumatic, normocephalic Eyes: nl lids, nl sclera ENMT: mucosa pink and moist, nl lips & teeth, nl nasal mucosa & septum Neck: non-tender, supple Respiratory: normal air movement, No labored breathing Cardiovascular: nl pulses, regular rate and rhythm, No jugular venous distention (JVD) Gastrointestinal: other (obese), soft, surgical scars, tender (ruq) Genitourinary - Female: nl adnexae, nl external genitalia Musculoskeletal: nl extremities to inspection, nl gait and stance Extremities: normal pulses Neurological: nl mental status, nl speech, nl strength Skin: nl turgor, rash or lesions Lymph: nl lymph nodes Results Result Diagram: 01/16/17 0749 01/18/17 0759 Results 24 hrs Laboratory Tests Test 01/17/17 12:17 01/17/17 17:45 01/17/17 21:12 01/18/17 07:59 Bedside Glucose 171 146 141 Blood Urea Nitrogen 26 H Creatinine 0.83 Medications Medications Current Medications Enoxaparin Sodium (Lovenox) 80 mg BID SC Last administered on 01/17/17 21:20; Admin Dose 80 MG; Start 01/13/17 at 09:00 Acetaminophen/ Hydrocodone Bitart ([place] (10/325)) 1 tab Q6H PRN PO PAIN Last administered on 01/18/17 04:20; Admin Dose 1 TAB; Start 01/13/17 at 00:30 Meloxicam (Mobic) 15 mg DAILY PO Last administered on 01/17/17 09:35; Admin Dose 15 MG; Start 01/13/17 at 09:00 Pantoprazole (Protonix Tab) 40 mg DAILY@06 PO Last administered on 01/18/17 05 :09; Admin Dose 40 MG; Start 01/13/17 at 06:00 EZETIMIBE (Zetia) 10 mg DAILY PO Last administered on 01/17/17 09:35; Admin Dose 10 MG; Start 01/13/17 at 09:00 Docusate Sodium (Colace) 200 mg BID PO Last administered on 01/17/17 21:14; Admin Dose 200 MG; Start 01/13/17 at 09:00 Polyethylene Glycol (Miralax) 17 gm DAILY NGT Last administered on 01/17/17 09 :41; Admin Dose 17 GM; Start 01/13/17 at 09:00 Bisacodyl (Dulcolax Supp) 10 mg DAILY PRN [place] CONSTIPATION; Start 01/13/17 at 08:00 Diphenhydramine HCl (Benadryl) 25 mg BID PRN PO ITCHING; Start 01/13/17 at 08: 00 Gabapentin (Neurontin) 300 mg BID PO Last administered on 01/17/17 21:14; Admin Dose 300 MG; Start 01/13/17 at 09:00 Linagliptin (Tradjenta) 5 mg DAILY PO Last administered on 01/17/17 09:36; Admin Dose 5 MG; Start 01/13/17 at 09:00 Potassium Chloride (Micro-K) 8 meq DAILY PO Last administered on 01/17/17 09: 34; Admin Dose 8 MEQ; Start 01/13/17 at 09:00 Salmeterol Xinafoate/ Fluticasone (Advair 250/50 Diskus) 1 inh BID INH Last administered on 01/17/17 21:13; Admin Dose 1 INH; Start 01/13/17 at 09:00 Solifenacin (Vesicare) 5 mg DAILY PO Last administered on 01/17/17 09:35; Admin Dose 5 MG; Start 01/13/17 at 09:00 Fish Oil (Fish Oil) 1,000 mg DAILY PO Last administered on 01/17/17 09:35; Admin Dose 1,000 MG; Start 01/15/17 at 13:30 Tiotropium [place] (Spiriva) 1 inh DAILY INH Last administered on 01/17/17 09: 40; Admin Dose 1 INH; Start 01/13/17 at 09:00 Clonidine HCl (Catapres-Tts 1 Patch) 1 patch Q7D TRANSDERM Last administered on 01/13/17 09:54; Admin Dose 1 PATCH; Start 01/13/17 at 08:30 Diagnostic Test (Pha) (Accu-Chek) 1 ea Q6 XX Last administered on 01/17/17 17: 47; Admin Dose 1 EA; Start 01/14/17 at 02:00 Miscellaneous Information 1 ea NOTE XX ; Start 01/13/17 at 08:30 Glucose (Glutose) 15 gm Q15M PRN PO DECREASED GLUCOSE; Start 01/13/17 at 08:30 Glucose (Glutose) 22.5 gm Q15M PRN PO DECREASED GLUCOSE; Start 01/13/17 at 08: 30 Dextrose (D50w Syringe) 25 ml Q15M PRN IV DECREASED GLUCOSE; Start 01/13/17 at 08:30 Dextrose (D50w Syringe) 50 ml Q15M PRN IV DECREASED GLUCOSE; Start 01/13/17 at 08:30 Glucagon (Glucagen) 1 mg Q15M PRN IM DECREASED GLUCOSE; Start 01/13/17 at 08: 30 Glucose (Glutose) 15 gm Q15M PRN BUCCAL DECREASED GLUCOSE; Start 01/13/17 at 08:30 Fluconazole (Diflucan) 200 mg DAILY PO Last administered on 01/17/17 09:35; Admin Dose 200 MG; Start 01/17/17 at 09:00 JESSIKA OH NP Jan 18, 2017 10:24
[2017-01-18] MEDS ORDERED: BARIUM SULF 2% 450 ML BTL (BERRY SMOOTHIE) PO ONE (11:00)
--- NOTE | 2017-01-18 12:30 | RADRPT ---
PROCEDURE: CT Abdomen and Pelvis without contrast. CLINICAL INDICATION: Abdominal pain TECHNIQUE: CT scan of the abdomen and pelvis was performed on a multidetector high-resolution CT s canner without intravenous contrast. Coronal and sagittal reformatted images were obtained from the axial source images. Images were reviewed on a high-resolution PACS workstation. The total exam CTD I equals 24mGy and the total exam DLP equals 1530mGy-cm. One or more of the following dose reduction techniques were used: Automated exposure control, Adjustment of the mA and/or kV according to patie nt size, and/or use of iterative reconstruction technique. DICOM images are available. COMPARISON: Abdominal CT 12/28/2016 FINDINGS: Evaluation of the solid organs is limited given the lack of intravenous contrast administration. Evaluation of the solid organs is limited given the lack of intravenous contrast administration. The lung bases are clear. The liver, pancreas, spleen, and adrenals are grossly unremarkable. No focal pericholecystic inflammatory changes. No hydronephrosis. No renal or ureteral stone. Bilateral renal cysts. Prior left abdominal wall defect is no longer seen with mild residual inflammatory stranding along t he anterior border of the mid transverse colon. Now seen is a left abdominal wall subcutaneous air f luid collection in the location of the prior left abdominal hernia measuring 3.9 x 4.9 cm . There is interval decreased distension of the proximal transverse and ascending colon when compared to the p rior study. No evidence of significant small-bowel dilatation. Appendix appears normal caliber. Multiple abdominal wall subcutaneous presumed injection granulomas are seen. No significant retroperitoneal lymphadenopathy, ascites or evidence of pneumoperitoneum. Aortoiliac atherosclerosis. Degenerative changes of the spine. IMPRESSION: Prior left abdominal wall defect is no longer seen with mild residual inflammatory stranding along t he anterior border of the mid transverse colon. Now seen is a left abdominal wall subcutaneous air-f luid collection in the location of the prior left abdominal hernia measuring 3.9 x 4.9 cm. This may represent a postoperative seroma, hematoma or abscess. There is interval decreased distension of the proximal transverse and ascending colon when compared to the prior study. No evidence of small bowel obstruction. Multiple abdominal wall subcutaneous presumed injection granulomas/hematomas are again seen. RPTAT: AA .Pb Colunga MD, MD Date Time Electronically viewed and signed by .Pb Colunga MD, MD on 01/18/2017 12:30 .T/
[2017-01-18] MEDS: MELOXICAM 15 MG TAB PO SCH (13:25)
--- NOTE | 2017-01-18 13:41 | PN ---
Date/Time of Note Date/Time of Note DATE: 01/18/17 TIME: 13:31 Assessment/Plan VTE Prophylaxis VTE Prophylaxis Intervention: ambulation, contraindicated VTE Contraindication Reason: peripheral vascular disease Lines/Catheters IV Catheter Type (from Nrsg): [place] [employer] line still needed: No Urinary Cath still in place: No Reason Cath still needed: urinary retention Assessment/Plan Assessment/Plan 1. Severe constipation with no bowel movement lat 15 days; she had 1 bowel movements, with no trace of blood, no melena. She was passing gases.After the repair of incarcerated umbilical hernia she feels less pain in the abdomen. 2. Bad odor from the urine with recurrent hematuria.- on Amoxil and Levaquin improved. 3.Low abdominal pain rlq with elongated mass palpable with fluid like content palpable(also seen on u/s) and llq abdominal pain without rebound. CT of the abdomen positive for fluid accumulation on the left lower part of abdominal wall.Called radiologist dr. Nieto [phone] ; confirmed findings. I asked him re review the images of the right lower part of the abdominal wall just above the right inguinal area, hich appears to be a fluid collection. Will call back. 4. Leukocytosis- from 9 to 7 today. stable. 5. History of having palpitations and bradycardia; lowest rate 45. 6. History of having bronchial asthma, now stable. 7. Wound of the postsurgical midline scar, right-sided abdomen, and a new left pararecal scar of new surgery done in [facility], well healed(01/05/17 approximately). 8. Status post cholecystectomy. 9. Postmenstrual syndrome. 10. Anxiety. 11. Constantly hungry. 12. Dyslipidemia. 13. Diabetes type 2. 14. History of having carbon dioxide retention- was on BIPAP, now stable. 15. Anemia of chronic disease with recent loss. H/H stable. 16. History of chronic kidney disease, improved. 17. History of having low iron and low magnesium levels- corrected. 18. Pain syndrome-on norco. 19. Major depression. 20. Altered level of consciousness- on and off. 21. Diverticulitis. 22. Left-sided chest pain, worse after the discharge and yesterday, today not as troublesome. 23.Urinary retention 24.Trophic changes of both legs with change of a color to dark. 25.Pilling of the skin of nail beds of both hands with deformities and trace of blood and swelling. 26.Bedridden for about 11 years being almost totally dependent from outside help. 27.Decubitus of the left gluteal area with mild redness of the calcaneal skin, stable. 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 32.Mindless eating with preserved awareness and inability to stop dooing that. Most of t he time now she continues to repeat the ritual of eating bu without being able to stop it from occurring (automatic behavior ). 33.Chronic norco,percocet, and other controlled substance user. 34.Bradycardia- now normal sinus rhythm on monitor. 35.Morbid obesity; Obesity hypopnea syndrome,hypercarbia with Pc02 57( average) 36.Hallucinations(mainly visual), confusion, fear of on and off 37.Hypertension, now normotensive. Congestive heart failure exacerbation with pulmonary edema.Improving 38.Low magnesium and low iron levels 39.Pannus 40.Morbid obesity due to of excess calories 41.Spinal stenosis with radiculopathy 42.Urinary retention 43.Cervicobrachial syndrome with pain and decreased rom 44.Agarophobia. 45.Claustrophobia Cont'd Hospitalization Reason: Called dr. Onel lynn injections done. Plan to d/c in am. Cont'd Hospitalization Reason: as above. Subjective 24 Hr Interval Summary Free Text/Dictation Low abdominal discomfort. No pain. Constipation persists. Constitutional: diaphoresis, disoriented, improved, poor po, No chills, No febrile, No no complaints, No other, No requiring IVF, No requiring O2 Eyes: No discharge, No no complaints, No other, No pain, No redness, No visual change ENT: dysphagia, No bleeding, No congestion, No discharge, No no complaints, No other, No pain , No sore throat Respiratory: cough, shortness of breath, No no complaints, No other, No pain, No pleuritic pain, No sputum, No wheezing Cardiovascular: lightheadedness, orthopenea, palpitations, No chest pain, No edema, No no complaints, No other, No paroxysmal nocturnal dyspnea Gastrointestinal: constipation, flatus, nausea, passing stool, No blood, No decreased appetite, No diarrhea, No no complaints, No other, No pain, No vomiting Genitourinary: No bleeding, No discharge, No dysuria, No flank pain, No hematuria, No no complaints, No other Musculoskeletal: back pain, bone/joint pain, neck pain, No no complaints, No other, No restricted range of motion, No swelling Skin: pruritis, No bruising, No erythema, No laceration, No no complaints, No other, No rash , No skin lesions Neurologic: confusion, dizziness, No focal-weakness, No headache, No no complaints, No other, No seizure, No syncope Endocrine: dry skin, No no complaints, No other, No polydypsia, No polyuria, No temp intolerance Lymphatic: No adenopathy, No lymphadema, No no complaints, No other, No tender nodes Psychological: anxiety, confusion, depression, No nl mood/affect, No no complaints, No other, No suicidal Exam/Review of Systems Vital Signs Vitals Vital Signs Date Time Temp Pulse Resp B/P Pulse Ox O2 Delivery O2 Flow Rate FiO2 01/18/17 12:41 98.4 71 18 117/57 100 01/18/17 09:01 2.0 01/18/17 09:01 Nasal Cannula 01/17/17 15:15 28 Intake and Output 01/17/17 01/17/17 01/18/17 15:00 23:00 07:00 Intake Total 1110 ml 350 ml Balance 1110 ml 350 ml Exam Constitutional: alert, distress, frail, obese, well developed, No non-verbal, No oriented, No other Psych: anxiety, confusion, depression, No nl mood/affect, No no complaints, No other, No suicidal Head: atraumatic, normocephalic, No hematomas, No lacerations, No other Eyes: EOMI, PERRL, nl lids, No fundi, disc, No icteric, No nl conjunctiva, No nl sclera, No other ENMT: nl lips & teeth (no teeth and no dentures.), No intubated, No mucosa pink and moist, No nl external ears & nose, No nl nasal mucosa & septum, No other, No tympanic membranes Neck: bruits, nuchal rigidity, No jvd, No masses, No non-tender, No other, No supple, No thyromegaly Respiratory: diminished breath sounds, normal air movement, No clear to auscultation, No congested cough, No crackles/rales, No intercostal retraction, No labored breathing, No other, No respirations, No tactile fremitus, No wheezing Cardiovascular: bruits, murmurs/extra sounds, systolic murmur, No S3, No S4, No diastolic murmur, No edema, No gallop, No irregular rhythm, No jugular venous distention (JVD), No nl pulses, No other, No regular rate and rhythm, No rub Gastrointestinal: bowel sounds, distended, nl liver, spleen, soft, surgical scars, No ascites, No firm, No hepatomegaly, No mass, No non-tender, No other, No rebound or guarding, No splenomegaly, No tender Genitourinary - Female: CVA tenderness, No CMT, No nl adnexae, No nl external genitalia, No other, No uterus Musculoskeletal: joint tenderness, muscle tone, muscle weakness, No nl extremities to inspection, No nl gait and stance, No other, No range of motion, No spine non-tender, No swelling Extremities: tenderness, No calf tenderness, No clubbing, No cyanosis, No edema, No normal pulses, No other, No palpable cord, No pitting pedal edema Neurological: 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 SPECIALIST II-XII intact, confused, lethargic, nl speech, numbness Results Result Diagram: 01/16/17 0749 01/18/17 0759 Results 24 hrs Laboratory Tests Test 01/17/17 17:45 01/17/17 21:12 01/18/17 07:59 01/18/17 10:05 Bedside Glucose 146 141 123 Blood Urea Nitrogen 26 H Creatinine 0.83 Test 01/18/17 12:50 Bedside Glucose 143 Medications Medications Current Medications Enoxaparin Sodium (Lovenox) 80 mg BID SC Last administered on 01/17/17 21:20; Admin Dose 80 MG; Start 01/13/17 at 09:00 Acetaminophen/ Hydrocodone Bitart ([place] (10/325)) 1 tab Q6H PRN PO PAIN Last administered on 01/18/17 10:15; Admin Dose 1 TAB; Start 01/13/17 at 00:30 Meloxicam (Mobic) 15 mg DAILY PO Last administered on 01/18/17 13:25; Admin Dose 15 MG; Start 01/13/17 at 09:00 Pantoprazole (Protonix Tab) 40 mg DAILY@06 PO Last administered on 01/18/17 05 :09; Admin Dose 40 MG; Start 01/13/17 at 06:00 EZETIMIBE (Zetia) 10 mg DAILY PO Last administered on 01/18/17 10:16; Admin Dose 10 MG; Start 01/13/17 at 09:00 Docusate Sodium (Colace) 200 mg BID PO Last administered on 01/18/17 10:17; Admin Dose 200 MG; Start 01/13/17 at 09:00 Polyethylene Glycol (Miralax) 17 gm DAILY NGT Last administered on 01/18/17 10 :23; Admin Dose 17 GM; Start 01/13/17 at 09:00 Bisacodyl (Dulcolax Supp) 10 mg DAILY PRN [place] CONSTIPATION; Start 01/13/17 at 08:00 Diphenhydramine HCl (Benadryl) 25 mg BID PRN PO ITCHING; Start 01/13/17 at 08: 00 Gabapentin (Neurontin) 300 mg BID PO Last administered on 01/18/17 10:17; Admin Dose 300 MG; Start 01/13/17 at 09:00 Linagliptin (Tradjenta) 5 mg DAILY PO Last administered on 01/18/17 10:17; Admin Dose 5 MG; Start 01/13/17 at 09:00 Potassium Chloride (Micro-K) 8 meq DAILY PO Last administered on 01/18/17 10: 17; Admin Dose 8 MEQ; Start 01/13/17 at 09:00 Salmeterol Xinafoate/ Fluticasone (Advair 250/50 Diskus) 1 inh BID INH Last administered on 01/18/17 10:18; Admin Dose 1 INH; Start 01/13/17 at 09:00 Solifenacin (Vesicare) 5 mg DAILY PO Last administered on 01/18/17 10:17; Admin Dose 5 MG; Start 01/13/17 at 09:00 Fish Oil (Fish Oil) 1,000 mg DAILY PO Last administered on 01/18/17 10:16; Admin Dose 1,000 MG; Start 01/15/17 at 13:30 Tiotropium [place] (Spiriva) 1 inh DAILY INH Last administered on 01/18/17 10: 18; Admin Dose 1 INH; Start 01/13/17 at 09:00 Clonidine HCl (Catapres-Tts 1 Patch) 1 patch Q7D TRANSDERM Last administered on 01/13/17 09:54; Admin Dose 1 PATCH; Start 01/13/17 at 08:30 Diagnostic Test (Pha) (Accu-Chek) 1 ea Q6 XX Last administered on 01/18/17 12: 00; Admin Dose 1 EA; Start 01/14/17 at 02:00 Miscellaneous Information 1 ea NOTE XX ; Start 01/13/17 at 08:30 Glucose (Glutose) 15 gm Q15M PRN PO DECREASED GLUCOSE; Start 01/13/17 at 08:30 Glucose (Glutose) 22.5 gm Q15M PRN PO DECREASED GLUCOSE; Start 01/13/17 at 08: 30 Dextrose (D50w Syringe) 25 ml Q15M PRN IV DECREASED GLUCOSE; Start 01/13/17 at 08:30 Dextrose (D50w Syringe) 50 ml Q15M PRN IV DECREASED GLUCOSE; Start 01/13/17 at 08:30 Glucagon (Glucagen) 1 mg Q15M PRN IM DECREASED GLUCOSE; Start 01/13/17 at 08: 30 Glucose (Glutose) 15 gm Q15M PRN BUCCAL DECREASED GLUCOSE; Start 01/13/17 at 08:30 Fluconazole (Diflucan) 200 mg DAILY PO Last administered on 01/18/17 10:17; Admin Dose 200 MG; Start 01/17/17 at 09:00 STONE HERNANDEZ MD Jan 18, 2017 13:41
[2017-01-18] MEDS ORDERED: VANCOMYCIN 1.75 GM in NS 500 ML IVPB SCH (14:00)
--- NOTE | 2017-01-18 17:04 | CONS ---
Date/Time of Note Date/Time of Note DATE: 01/18/17 TIME: 16:57 Assessment/Plan Assessment/Plan Chief Complaint/Hosp Course Assessment: Acute on chronic diastolic heart failure - improved with diuresis History of unspecified cardiac arrhythmia - on flecainide chronically Hypertension Diabetes mellitus Bedbound state Abdominal pain - follow up surgery Status post recent ventral hernia repair Recommendations: -change IV Lasix to PO 40mg daily -continue flecainide 150mg BID Problems: Consultation Date/Type/Reason Admit Date/Time Jan 12, 2017 at 22:02 Initial Consult Date 01/18/17 Type of Consultation: Cardiology 24 HR Interval Summary Free Text/Dictation No acute events. Detailed Summary Additional Comments 14 point review of systems without changes. Exam/Review of Systems Vital Signs Vitals Vital Signs Date Time Temp Pulse Resp B/P Pulse Ox O2 Delivery O2 Flow Rate FiO2 01/18/17 16:27 98.2 67 18 11/52 100 01/18/17 09:01 2.0 01/18/17 09:01 Nasal Cannula 01/17/17 15:15 28 Intake and Output 01/17/17 01/17/17 01/18/17 15:00 23:00 07:00 Intake Total 1110 ml 350 ml Balance 1110 ml 350 ml Exam Constitutional: alert, oriented Psych: nl mood/affect, no complaints Head: atraumatic, normocephalic Neck: No jvd (unable to assess) Respiratory: diminished breath sounds, No clear to auscultation Cardiovascular: edema (trace), regular rate and rhythm, No systolic murmur Gastrointestinal: non-tender, soft Neurological: nl mental status, nl speech Results Result Diagram: 01/16/17 0749 01/18/17 0759 Results 24 hrs Laboratory Tests Test 01/17/17 17:45 01/17/17 21:12 01/18/17 07:59 01/18/17 10:05 Bedside Glucose 146 141 123 Blood Urea Nitrogen 26 H Creatinine 0.83 Test 01/18/17 12:50 Bedside Glucose 143 Medications Medications Current Medications Enoxaparin Sodium (Lovenox) 80 mg BID SC Last administered on 01/17/17t 21:20; Admin Dose 80 MG; Start 01/13/17 at 09:00 Acetaminophen/ Hydrocodone Bitart ([place] (10/325)) 1 tab Q6H PRN PO PAIN Last administered on 01/18/17 10:15; Admin Dose 1 TAB; Start 01/13/17 at 00:30 Meloxicam (Mobic) 15 mg DAILY PO Last administered on 01/18/17 13:25; Admin Dose 15 MG; Start 01/13/17 at 09:00 Pantoprazole (Protonix Tab) 40 mg DAILY@06 PO Last administered on 01/18/17 05 :09; Admin Dose 40 MG; Start 01/13/17 at 06:00 EZETIMIBE (Zetia) 10 mg DAILY PO Last administered on 01/18/17 10:16; Admin Dose 10 MG; Start 01/13/17 at 09:00 Docusate Sodium (Colace) 200 mg BID PO Last administered on 01/18/17 10:17; Admin Dose 200 MG; Start 01/13/17 at 09:00 Polyethylene Glycol (Miralax) 17 gm DAILY NGT Last administered on 01/18/17 10 :23; Admin Dose 17 GM; Start 01/13/17 at 09:00 Bisacodyl (Dulcolax Supp) 10 mg DAILY PRN [place] CONSTIPATION; Start 01/13/17 at 08:00 Diphenhydramine HCl (Benadryl) 25 mg BID PRN PO ITCHING; Start 01/13/17 at 08: 00 Gabapentin (Neurontin) 300 mg BID PO Last administered on 01/18/17 10:17; Admin Dose 300 MG; Start 01/13/17 at 09:00 Linagliptin (Tradjenta) 5 mg DAILY PO Last administered on 01/18/17 10:17; Admin Dose 5 MG; Start 01/13/17 at 09:00 Potassium Chloride (Micro-K) 8 meq DAILY PO Last administered on 01/18/17 10: 17; Admin Dose 8 MEQ; Start 01/13/17 at 09:00 Salmeterol Xinafoate/ Fluticasone (Advair 250/50 Diskus) 1 inh BID INH Last administered on 01/18/17 10:18; Admin Dose 1 INH; Start 01/13/17 at 09:00 Solifenacin (Vesicare) 5 mg DAILY PO Last administered on 01/18/17 10:17; Admin Dose 5 MG; Start 11/30/17 at 09:00 Fish Oil (Fish Oil) 1,000 mg DAILY PO Last administered on 01/18/17 10:16; Admin Dose 1,000 MG; Start 01/15/17 at 13:30 Tiotropium [place] (Spiriva) 1 inh DAILY INH Last administered on 01/18/17 10: 18; Admin Dose 1 INH; Start 01/13/17 at 09:00 Clonidine HCl (Catapres-Tts 1 Patch) 1 patch Q7D TRANSDERM Last administered on 01/13/17 09:54; Admin Dose 1 PATCH; Start 01/13/17 at 08:30 Diagnostic Test (Pha) (Accu-Chek) 1 ea Q6 XX Last administered on 01/18/17 12: 00; Admin Dose 1 EA; Start 01/14/17 at 02:00 Miscellaneous Information 1 ea NOTE XX ; Start 01/13/17 at 08:30 Glucose (Glutose) 15 gm Q15M PRN PO DECREASED GLUCOSE; Start 01/13/17 at 08:30 Glucose (Glutose) 22.5 gm Q15M PRN PO DECREASED GLUCOSE; Start 01/13/17 at 08: 30 Dextrose (D50w Syringe) 25 ml Q15M PRN IV DECREASED GLUCOSE; Start 01/13/17 at 08:30 Dextrose (D50w Syringe) 50 ml Q15M PRN IV DECREASED GLUCOSE; Start 01/13/17 at 08:30 Glucagon (Glucagen) 1 mg Q15M PRN IM DECREASED GLUCOSE; Start 01/13/17 at 08: 30 Glucose (Glutose) 15 gm Q15M PRN BUCCAL DECREASED GLUCOSE; Start 01/13/17 at 08:30 Fluconazole (Diflucan) 200 mg DAILY PO Last administered on 01/18/17 10:17; Admin Dose 200 MG; Start 01/17/17 at 09:00 PERNELL TALBOT MD Jan 18, 2017 17:04
--- NOTE | 2017-01-18 20:07 | CONS ---
Date/Time of Note Date/Time of Note DATE: 01/18/17 TIME: 20:06 Assessment/Plan Assessment/Plan Chief Complaint/Hosp Course ANEMIA- N CYTIC WITH INCREASED RDW + ACD LOOKS COMPENSATED CONT TO MONITOR BLOOD COUNT CLOSELY MONITOR FOR BLEEDING AND HEMOLYSIS HYPERCOAGULABLE STATE WITH HX DVT CONT LOVENOX h/o diastolic heart failure, cardiac arrhythmia (unclear details) on flecainide, DM, HTN, HL, bedbound state for 10+ years, recent abdominal hernia repair Problems: Consultation Date/Type/Reason Admit Date/Time Jan 12, 2017 at 22:02 Initial Consult Date 01/13/17 Type of Consultation: HEMEONC 24 HR Interval Summary Free Text/Dictation ALL NOTED NO BLEEDING Exam/Review of Systems Vital Signs Vitals Vital Signs Date Time Temp Pulse Resp B/P Pulse Ox O2 Delivery O2 Flow Rate FiO2 01/18/17 16:27 98.2 67 18 11/52 100 01/18/17 16:00 Nasal Cannula 2.0 01/17/17 15:15 28 Intake and Output 01/17/17 01/17/17 01/18/17 15:00 23:00 07:00 Intake Total 1110 ml 350 ml Balance 1110 ml 350 ml Exam Constitutional: alert, oriented Psych: anxiety Head: atraumatic, normocephalic Neck: No jvd (difficult to examine but appears to be 7-8cm) Respiratory: diminished breath sounds, No clear to auscultation Cardiovascular: edema (trace), regular rate and rhythm, No systolic murmur Gastrointestinal: non-tender, other (surgical healing wound noted ), soft Musculoskeletal: nl extremities to inspection Neurological: nl mental status, nl speech Skin: No rash or lesions Results Result Diagram: 01/16/17 0749 01/18/17 0759 Results 24 hrs Laboratory Tests Test 01/17/17 21:12 01/18/17 07:59 01/18/17 10:05 01/18/17 12:50 Bedside Glucose 141 123 143 Blood Urea Nitrogen 26 H Creatinine 0.83 Test 01/18/17 16:59 Bedside Glucose 106 Medications Medications Current Medications Enoxaparin Sodium (Lovenox) 80 mg BID SC Last administered on 01/17/17t 21:20; Admin Dose 80 MG; Start 01/13/17 at 09:00 Acetaminophen/ Hydrocodone Bitart ([place] (10/325)) 1 tab Q6H PRN PO PAIN Last administered on 01/18/17 16:55; Admin Dose 1 TAB; Start 01/13/17 at 00:30 Meloxicam (Mobic) 15 mg DAILY PO Last administered on 01/18/17 13:25; Admin Dose 15 MG; Start 01/13/17 at 09:00 Pantoprazole (Protonix Tab) 40 mg DAILY@06 PO Last administered on 01/18/17 05 :09; Admin Dose 40 MG; Start 01/13/17 at 06:00 EZETIMIBE (Zetia) 10 mg DAILY PO Last administered on 01/18/17 10:16; Admin Dose 10 MG; Start 01/13/17 at 09:00 Docusate Sodium (Colace) 200 mg BID PO Last administered on 01/18/17 10:17; Admin Dose 200 MG; Start 01/13/17 at 09:00 Polyethylene Glycol (Miralax) 17 gm DAILY NGT Last administered on 01/18/17 10 :23; Admin Dose 17 GM; Start 01/13/17 at 09:00 Bisacodyl (Dulcolax Supp) 10 mg DAILY PRN [place] CONSTIPATION; Start 01/13/17 at 08:00 Diphenhydramine HCl (Benadryl) 25 mg BID PRN PO ITCHING; Start 01/13/17 at 08: 00 Gabapentin (Neurontin) 300 mg BID PO Last administered on 01/18/17 10:17; Admin Dose 300 MG; Start 01/13/17 at 09:00 Linagliptin (Tradjenta) 5 mg DAILY PO Last administered on 01/18/17 10:17; Admin Dose 5 MG; Start 01/13/17 at 09:00 Potassium Chloride (Micro-K) 8 meq DAILY PO Last administered on 01/18/17 10: 17; Admin Dose 8 MEQ; Start 01/13/17 at 09:00 Salmeterol Xinafoate/ Fluticasone (Advair 250/50 Diskus) 1 inh BID INH Last administered on 01/18/17 10:18; Admin Dose 1 INH; Start 01/13/17 at 09:00 Solifenacin (Vesicare) 5 mg DAILY PO Last administered on 01/18/17 10:17; Admin Dose 5 MG; Start 01/13/17 at 09:00 Fish Oil (Fish Oil) 1,000 mg DAILY PO Last administered on 01/18/17 10:16; Admin Dose 1,000 MG; Start 01/15/17 at 13:30 Tiotropium [place] (Spiriva) 1 inh DAILY INH Last administered on 01/18/17 10: 18; Admin Dose 1 INH; Start 01/13/17 at 09:00 Clonidine HCl (Catapres-Tts 1 Patch) 1 patch Q7D TRANSDERM Last administered on 01/13/17 09:54; Admin Dose 1 PATCH; Start 01/13/17 at 08:30 Diagnostic Test (Pha) (Accu-Chek) 1 ea Q6 XX Last administered on 01/18/17 17: 02; Admin Dose 1 EA; Start 01/14/17 at 02:00 Miscellaneous Information 1 ea NOTE XX ; Start 01/13/17 at 08:30 Glucose (Glutose) 15 gm Q15M PRN PO DECREASED GLUCOSE; Start 01/13/17 at 08:30 Glucose (Glutose) 22.5 gm Q15M PRN PO DECREASED GLUCOSE; Start 01/13/17 at 08: 30 Dextrose (D50w Syringe) 25 ml Q15M PRN IV DECREASED GLUCOSE; Start 01/13/17 at 08:30 Dextrose (D50w Syringe) 50 ml Q15M PRN IV DECREASED GLUCOSE; Start 01/13/17 at 08:30 Glucagon (Glucagen) 1 mg Q15M PRN IM DECREASED GLUCOSE; Start 01/13/17 at 08: 30 Glucose (Glutose) 15 gm Q15M PRN BUCCAL DECREASED GLUCOSE; Start 01/13/17 at 08:30 Fluconazole (Diflucan) 200 mg DAILY PO Last administered on 01/18/17 10:17; Admin Dose 200 MG; Start 01/17/17 at 09:00 Furosemide (Lasix) 40 mg DAILY PO ; Start 01/19/17 at 09:00 Flecainide Acetate (Tambocor) 150 mg BID PO ; Start 01/18/17 at 21:00 JORGE PEREZ MD Jan 18, 2017 20:07
[2017-01-18] MEDS ORDERED: FLECAINIDE 50 MG TAB PO SCH (21:00)
[2017-01-18] MEDS: FLECAINIDE 100 MG TAB PO SCH (23:15)
[2017-01-19] VITALS (8 sets, daily range): BP systolic 122–137; BP diastolic 58–64; PULSE 58–67; RESP 16–20
[2017-01-19] MEDS: ALBUTEROL/IPRATROPIUM (NEB) 3 ML AMP HHN SCH ×2 (00:52→07:39)
[2017-01-19] MEDS: PANTOPRAZOLE (EC) 40 MG TAB PO SCH (05:54)
[2017-01-19] MEDS: HYDROCODONE/APAP (10/325) TAB PO PRN ×2 (06:19→12:50)
[2017-01-19] MEDS: ACCU-CHEK XX SCH ×2 (07:30→11:20)
[2017-01-19] MEDS: INSULIN ASPART [NOVOLOG] 3 ML PEN SC SCH ×2 (07:30→11:30)
[2017-01-19] MEDS: metFORMIN 500 MG TAB PO SCH (08:42)
[2017-01-19] MEDS: DOCUSATE SODIUM 100 MG CAP PO SCH (08:42)
[2017-01-19] MEDS: POTASSIUM CHLORIDE (SR) 8 MEQ CAP PO SCH (08:43)
[2017-01-19] MEDS: LINAGLIPTIN 5 MG TABLET PO SCH (08:43)
[2017-01-19] MEDS: GABAPENTIN 300 MG CAP PO SCH (08:43)
[2017-01-19] MEDS: MELOXICAM 15 MG TAB PO SCH (08:43)
[2017-01-19] MEDS: FISH OIL 1,000 MG CAP PO SCH (08:43)
[2017-01-19] MEDS: EZETIMIBE 10 MG TAB PO SCH (08:43)
[2017-01-19] MEDS: FLECAINIDE 100 MG TAB PO SCH (08:45)
[2017-01-19] MEDS: POLYETHYLENE GLYCOL 17 GM PACKET NGT SCH (08:45)
[2017-01-19] MEDS: FLUCONAZOLE 200 MG TAB PO SCH (08:45)
[2017-01-19] MEDS: SALMETEROL/FLUTICASONE 250/50 INHA INH SCH (08:45)
[2017-01-19] MEDS: SOLIFENACIN 5 MG TAB PO SCH (08:46)
--- NOTE | 2017-01-19 08:54 | DS ---
Date/Time of Note Date/Time of Note DATE: 01/19/17 TIME: 08:39 Discharge Summary Admission/Discharge Info Admit Date/Time Jan 12, 2017 at 22:02 Discharge Date/Time 01/19/2017 15pm. Discharge Diagnosis 1. Severe constipation with no bowel movement last 20 days; she had 1 bowel movements yesterday, with no trace of blood, no melena. She was passing gases.After the repair of incarcerated umbilical hernia she feels less pain in the abdomen. 2. Bad odor from the urine with recurrent hematuria.- on Amoxil and Levaquin improved. 3.Low abdominal pain and llq abd pain with mild rebound. 4. Leukocytosis- from 9 to 7 today. stable. 5. History of having palpitations and bradycardia; lowest rate 45. 6. History of having bronchial asthma, now stable. 7. Wound of the postsurgical midline scar, right-sided abdomen, and a new left pararecal scar of new surgery done in [facility], well healed(01/05/17 approximately). 8. Status post cholecystectomy. 9. Postmenstrual syndrome. 10. Anxiety. 11. Constantly hungry. 12. Dyslipidemia. 13. Diabetes type 2. 14. History of having carbon dioxide retention- was on BIPAP, now stable. 15. Anemia of chronic disease with recent loss. H/H stable. 16. History of chronic kidney disease, improved. 17. History of having low iron and low magnesium levels- corrected. 18. Pain syndrome-on norco. 19. Major depression. 20. Altered level of consciousness- on and off. 21. Diverticulitis. 22. Left-sided chest pain, worse after the discharge and yesterday, today not as troublesome. 23.Urinary retention 24.Trophic changes of both legs with change of a color to dark. 25.Pilling of the skin of nail beds of both hands with deformities and trace of blood and swelling. 26.Bedridden for about 11 years being almost totally dependent from outside help. 27.Decubitus of the left gluteal area with mild redness of the calcaneal skin, stable. 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 32.Mindless eating with preserved awareness and inability to stop dooing that. Most of t he time now she continues to repeat the ritual of eating bu without being able to stop it from occurring (automatic behavior ). 33.Chronic norco,percocet, and other controlled substance user. 34.Bradycardia- now normal sinus rhythm on monitor. 35.Morbid obesity; Obesity hypopnea syndrome,hypercarbia with Pc02 57( average) 36.Hallucinations(mainly visual), confusion, fear of on and off 37.Hypertension, now normotensive. Congestive heart failure exacerbation with pulmonary edema.Improving 38.Low magnesium and low iron levels 39.Pannus 40.Morbid obesity due to of excess calories 41.Spinal stenosis with radiculopathy 42.Urinary retention 43.Cervicobrachial syndrome with pain and decreased rom 44.Agarophobia. 45.Claustrophobia Patient Condition: Stable Hx of Present Illness I can't move my right shoulder; I have bad pain in my neck. Severe weakness, perspiration, sob, confusion. 2 weeks with constipation, abdominal pain on and off. Worsening of forgetfulness with the the fear of . I went home after the surgery on Tuesday but never felt relaxed. My bed is very uncomfortable at home. I can't sleep. I see people, I hear voices. I am fearful. This patient states she has had chest pain for the past 3-4 days and states that her chest pain as a pressure-like sensation in the center of her chest with no radiation. "I never get enough oxygen". Hospital Course Admitted with hallucinations and weakness mainly along with the pain after herniorrhaphy in [facility] in [place].Found to have right lower abdominal mass(fluid) on u/s and new accumulation of fluid after the surgery on the left abdominal wall. Discussed with the radiologist and . No other activities at this time. No redness , no pain, no elevation of wbc's as for now. One more test will be done now. If the same results d/c to home or snf for f/u. Home Meds Active Scripts Bisacodyl* (Bisacodyl*) 10 Mg Supp, 10 MG AR DAILY Y for CONSTIPATION for 30 Days, #60 SUPP Prov:WAN HERNANDEZ MD 11/23/16 Reported Medications Metformin Hcl* (Metformin Hcl*) 1,000 Mg Tablet, 1000 MG PO WITH BREAKFAST DINNE , #60 TAB NEEDED 01/12/17 Icosapent Ethyl (VASCEPA) 1 Gm Capsule, 1 GM PO DAILY, CAP 09/30/16 Solifenacin* (Vesicare*) 5 Mg Tablet, 5 MG PO DAILY, TAB 09/30/16 Polyethylene Glycol 3350 (Polyethylene Glycol 3350) 255 Gm Powder, 255 GM PO 09/30/16 Linagliptin (TRADJENTA) 5 Mg Tablet, 5 MG PO DAILY, TAB 09/20/16 Clonidine Hcl* (Clonidine Hcl*) 0.1 Mg Tab, 0.1 MG PO DAILY Y for HTN, TAB 09/20/16 Furosemide* (Furosemide*) 40 Mg Tablet, 40 MG PO DAILY, TAB 09/20/16 Gabapentin* (Gabapentin*) 300 Mg Capsule, 300 MG PO NEEDED, #60 CAP 09/20/16 Potassium Chloride* (Potassium Chloride*) 8 Meq Capsule.er, 8 MEQ PO DAILY, CAP 09/20/16 Hydrocodone/Acetaminophen ([place] 10-325 Tablet) 1 Each Tablet, 1 EACH PO Q8H, TAB 09/20/16 Flecainide Acetate* (Flecainide Acetate*) 150 Mg Tablet, 150 MG PO BID, TAB 09/20/16 Diphenhydramine Hcl* (Benadryl*) 25 Mg Cap, 25 MG PO BID Y for ITCHING, CAP 10/21/15 Tiotropium [place]* (Spiriva*) 18 Mcg Cap.w.dev, 1 INH IH DAILY, EA 07/11/14 Salmeterol Xinaf/Fluticasone* (Advair*) 250-50 Diskus Inhaler, 1 INH INH BID, INH 07/11/14 Discontinued Reported Medications Prednisone* (Prednisone*) 10 Mg Tab, 10 MG PO DAILY, TAB TAKE 3TAB FOR 3DAYS, 2TAB FORE 3 DAYS AND 1 TAB DAILY 11/08/16 Discontinued Scripts Docusate Sodium (Dok) 100 Mg Capsule, 200 MG PO BID Y for CONSTIPATION for 14 Days, #30 CAP Prov:WAN HERNANDEZ MD 11/23/16 Voriconazole* (Voriconazole*) 200 Mg Tablet, 200 MG PO BID for 14 Days, #10 TAB Prov:WAN HERNANDEZ MD 11/23/16 Follow-up Plan by private and or by . Primary Care Provider Wan Hernandez MD Time spent on discharge: > 30 minutes Pending Labs Laboratory Tests Test 01/18/17 10:05 01/18/17 12:50 01/18/17 16:59 01/18/17 20:52 Bedside Glucose 123mg/dL (70-220) 143mg/dL (70-220) 106mg/dL (70-220) 113mg/dL (70-220) Test 01/19/17 07:46 Bedside Glucose 102mg/dL (70-220) WAN HERNANDEZ MD Jan 19, 2017 08:53
[2017-01-19] MEDS ORDERED: FUROSEMIDE 40 MG TAB PO SCH (09:00)
[2017-01-19] MEDS: ENOXAPARIN 80 MG/0.8 ML SYG SC SCH (09:05)
[2017-01-19] MEDS: TIOTROPIUM 18 MCG CAPSULE INHA DEV INH SCH (09:38)
[2017-01-19 09:58] LABS: BASOPHIL # 0.1 10^3/ul (0.0-0.1); BASOPHILS % 0.5 % (0.0-2.0); EOSINOPHILS # 0.1 10^3/ul (0.0-0.5); EOSINOPHILS % 1.2 % (0.0-7.0); HEMATOCRIT 37.3 % (37.0-47.0); HEMOGLOBIN 11.7 g/dl (12.0-16.0); LYMPHOCYTES # 2.1 10^3/ul (0.8-2.9); LYMPHOCYTES % 22.7 % (15.0-51.0); MEAN CORPUSCULAR HEMOGLOBIN 30.6 pg (29.0-33.0); MEAN CORPUSCULAR HGB CONC 31.4 g/dl (32.0-37.0); MEAN CORPUSCULAR VOLUME 97.6 fl (82.0-101.0); MEAN PLATELET VOLUME 12.7 fl (7.4-10.4); MONOCYTE # 0.6 10^3/ul (0.3-0.9); NEUTROPHIL # 6.4 10^3/ul (1.6-7.5); NEUTROPHILS % 69.3 % (39.0-77.0); PLATELET COUNT 238 10^3/UL (140-415); RED BLOOD COUNT 3.82 10^6/ul (4.20-5.40); RED CELL DISTRIBUTION WIDTH 14.4 % (11.5-14.5); WHITE BLOOD COUNT 9.2 10^3/ul (4.8-10.8)
[2017-01-19 10:15] LABS: IRON 77 ug/dl (35-150)
[2017-01-19 10:18] LABS: ALBUMIN 3.5 g/dl (3.3-4.9); ALBUMIN/GLOBULIN RATIO 1.02; CALCIUM 9.5 mg/dl (8.4-10.2); CREATININE 0.88 mg/dl (0.44-1.00); MAGNESIUM 1.6 mg/dl (1.7-2.5); POTASSIUM 4.9 mmol/L (3.5-5.1); TOTAL PROTEIN 6.9 g/dl (6.1-8.1)
[2017-01-19 10:26] LABS: TOTAL IRON BINDING CAPACITY 207 ug/dl (241-421)
--- NOTE | 2017-01-19 13:39 | PN ---
Date/Time of Note Date/Time of Note DATE: 01/19/17 TIME: 13:39 Assessment/Plan Lines/Catheters IV Catheter Type (from Nrsg): Saline Lock Mascorro in Place (from Nrsg): No Assessment/Plan Chief Complaint/Hosp Course 1.Abdominal pain: currently w RUQ pain but had report of right groin pain; concern for ?hernia -CT abdomen -wants to speak with primary before going for CT -obtain previous records of surgery -pain management 2. CHF: -diuresis -per cards 3. Bilateral knee OA : s/p steroid injection 4. Normocytic normochromic anemia: -monitor -transfuse as needed 5. UTI: -abx per sensitivity -frequent bladder emptying 6. Morbid obesity: bmi 49 -diet and exercise optimization -encourage weight loss Thank you. Patient seen and examined in collaboration with Dr. Steve Clayton. Problems: Exam/Review of Systems Vital Signs Vitals Vital Signs Date Time Temp Pulse Resp B/P Pulse Ox O2 Delivery O2 Flow Rate FiO2 01/19/17 12:25 67 01/19/17 12:10 97.9 16 122/59 100 01/19/17 08:15 Nasal Cannula 2.0 01/17/17 15:15 28 Intake and Output 01/18/17 01/18/17 01/19/17 14:59 22:59 06:59 Intake Total 960 ml 500 ml Balance 960 ml 500 ml Results Result Diagram: 01/19/1718 01/19/1718 JESSIKA OH NP Jan 19, 2017 13:39
--- NOTE | 2017-01-19 13:50 | CONS ---
Date/Time of Note Date/Time of Note DATE: 01/19/17 TIME: 13:50 Assessment/Plan Assessment/Plan Chief Complaint/Hosp Course ANEMIA- N CYTIC WITH INCREASED RDW + ACD LOOKS COMPENSATED CONT TO MONITOR BLOOD COUNT CLOSELY MONITOR FOR BLEEDING AND HEMOLYSIS HYPERCOAGULABLE STATE WITH HX DVT CONT LOVENOX h/o diastolic heart failure, cardiac arrhythmia (unclear details) on flecainide, DM, HTN, HL, bedbound state for 10+ years, recent abdominal hernia repair Problems: Consultation Date/Type/Reason Admit Date/Time Jan 12, 2017 at 22:02 Initial Consult Date 01/13/17 Type of Consultation: HEMEONC Exam/Review of Systems Vital Signs Vitals Vital Signs Date Time Temp Pulse Resp B/P Pulse Ox O2 Delivery O2 Flow Rate FiO2 01/19/17 12:25 67 01/19/17 12:10 97.9 16 122/59 100 01/19/17 08:15 Nasal Cannula 2.0 01/17/17 15:15 28 Intake and Output 01/18/17 01/18/17 01/19/17 15:00 23:00 07:00 Intake Total 960 ml 500 ml Balance 960 ml 500 ml Results Result Diagram: 01/19/1718 01/19/17 0918 Results 24 hrs Laboratory Tests Test 01/18/17 16:59 01/18/17 20:52 01/19/17 07:46 01/19/17 09:18 Bedside Glucose 106 113 102 White Blood Count 9.2 Red Blood Count 3.82 L Hemoglobin 11.7 L Hematocrit 37.3 Mean Corpuscular Volume 97.6 Mean Corpuscular Hemoglobin 30.6 Mean Corpuscular Hemoglobin Concent 31.4 L Red Cell Distribution Width 14.4 Platelet Count 238 Mean Platelet Volume 12.7 H Neutrophils % 69.3 Lymphocytes % 22.7 Monocytes % 6.0 Eosinophils % 1.2 Basophils % 0.5 Nucleated Red Blood Cells % 0.0 Neutrophils # 6.4 Lymphocytes # 2.1 Monocytes # 0.6 Eosinophils # 0.1 Basophils # 0.1 Nucleated Red Blood Cells # 0.0 Sodium Level 137 Potassium Level 4.9 Chloride Level 96 L Carbon Dioxide Level 33 H Anion Gap 13 Blood Urea Nitrogen 25 H Creatinine 0.88 Glucose Level 126 Calcium Level 9.5 Magnesium Level 1.6 L Iron Level 77 Total Iron Binding Capacity 207 L Percent Iron Saturation 37 Total Bilirubin 0.0 L Direct Bilirubin 0.00 Indirect Bilirubin 0.0 Aspartate Amino Transf (AST/SGOT) 18 Alanine Aminotransferase (ALT/SGPT) 29 Alkaline Phosphatase 62 Total Protein 6.9 Albumin 3.5 Globulin 3.40 H Albumin/Globulin Ratio 1.02 Test 01/19/17 11:31 Bedside Glucose 116 Medications Medications Current Medications Enoxaparin Sodium (Lovenox) 80 mg BID SC Last administered on 01/19/17 09:05; Admin Dose 80 MG; Start 01/13/17 at 09:00 Acetaminophen/ Hydrocodone Bitart ([place] (10/325)) 1 tab Q6H PRN PO PAIN Last administered on 01/19/17 12:50; Admin Dose 1 TAB; Start 01/13/17 at 00:30 Meloxicam (Mobic) 15 mg DAILY PO Last administered on 01/19/17 08:43; Admin Dose 15 MG; Start 01/13/17 at 09:00 Pantoprazole (Protonix Tab) 40 mg DAILY@06 PO Last administered on 01/19/17 05 :54; Admin Dose 40 MG; Start 01/13/17 at 06:00 EZETIMIBE (Zetia) 10 mg DAILY PO Last administered on 01/19/17 08:43; Admin Dose 10 MG; Start 01/13/17 at 09:00 Docusate Sodium (Colace) 200 mg BID PO Last administered on 01/19/17 08:42; Admin Dose 200 MG; Start 01/13/17 at 09:00 Polyethylene Glycol (Miralax) 17 gm DAILY NGT Last administered on 01/19/17 08 :45; Admin Dose 17 GM; Start 01/13/17 at 09:00 Bisacodyl (Dulcolax Supp) 10 mg DAILY PRN [place] CONSTIPATION; Start 01/13/17 at 08:00 Diphenhydramine HCl (Benadryl) 25 mg BID PRN PO ITCHING; Start 01/13/17 at 08: 00 Gabapentin (Neurontin) 300 mg BID PO Last administered on 01/19/17 08:43; Admin Dose 300 MG; Start 01/13/17 at 09:00 Linagliptin (Tradjenta) 5 mg DAILY PO Last administered on 01/19/17 08:43; Admin Dose 5 MG; Start 01/13/17 at 09:00 Potassium Chloride (Micro-K) 8 meq DAILY PO Last administered on 01/19/17 08: 43; Admin Dose 8 MEQ; Start 01/13/17 at 09:00 Salmeterol Xinafoate/ Fluticasone (Advair 250/50 Diskus) 1 inh BID INH Last administered on 01/19/17 08:45; Admin Dose 1 INH; Start 01/13/17 at 09:00 Solifenacin (Vesicare) 5 mg DAILY PO Last administered on 01/19/17 08:46; Admin Dose 5 MG; Start 01/13/17 at 09:00 Fish Oil (Fish Oil) 1,000 mg DAILY PO Last administered on 01/19/17 08:43; Admin Dose 1,000 MG; Start 01/15/17 at 13:30 Tiotropium [place] (Spiriva) 1 inh DAILY INH Last administered on 01/19/17 09: 38; Admin Dose 1 INH; Start 01/13/17 at 09:00 Clonidine HCl (Catapres-Tts 1 Patch) 1 patch Q7D TRANSDERM Last administered on 01/13/17 09:54; Admin Dose 1 PATCH; Start 01/13/17 at 08:30 Miscellaneous Information 1 ea NOTE XX ; Start 01/13/17 at 08:30 Glucose (Glutose) 15 gm Q15M PRN PO DECREASED GLUCOSE; Start 01/13/17 at 08:30 Glucose (Glutose) 22.5 gm Q15M PRN PO DECREASED GLUCOSE; Start 01/13/17 at 08: 30 Dextrose (D50w Syringe) 25 ml Q15M PRN IV DECREASED GLUCOSE; Start 01/13/17 at 08:30 Dextrose (D50w Syringe) 50 ml Q15M PRN IV DECREASED GLUCOSE; Start 01/13/17 at 08:30 Glucagon (Glucagen) 1 mg Q15M PRN IM DECREASED GLUCOSE; Start 01/13/17 at 08: 30 Glucose (Glutose) 15 gm Q15M PRN BUCCAL DECREASED GLUCOSE; Start 01/13/17 at 08:30 Fluconazole (Diflucan) 200 mg DAILY PO Last administered on 01/19/17 08:45; Admin Dose 200 MG; Start 01/17/17 at 09:00 Furosemide (Lasix) 40 mg DAILY PO Last administered on 01/19/17 08:45; Admin Dose 40 MG; Start 01/19/17 at 09:00 Flecainide Acetate (Tambocor) 150 mg BID PO Last administered on 01/19/17 08: 45; Admin Dose 150 MG; Start 01/18/17 at 23:15 JORGE PEREZ MD Jan 19, 2017 13:50
== END 2017-01-19 14:52 | disposition home or self-care (01) | DRG 292 ==
LOC: E/R 17:53 → MS4 22:02
PROVIDERS: ADMIT Family Medicine; ATTEND Family Medicine
DX: I11.0 Hypertensive heart disease with heart failure (principal); D68.59 Other primary thrombophilia; R00.1 Bradycardia, unspecified; N39.0 Urinary tract infection, site not specified; E11.9 Type 2 diabetes mellitus without complications; D64.9 Anemia, unspecified; Z68.42 Body mass index [BMI] 45.0-49.9, adult; K59.00 Constipation, unspecified; I50.33 Acute on chronic diastolic (congestive) heart failure; E66.01 Morbid (severe) obesity due to excess calories; Z74.01 Bed confinement status; R44.1 Visual hallucinations; I25.10 Atherosclerotic heart disease of native coronary artery without angina pectoris; E03.9 Hypothyroidism, unspecified; Z87.891 Personal history of nicotine dependence; E78.5 Hyperlipidemia, unspecified; Z86.718 Personal history of other venous thrombosis and embolism; Z79.01 Long term (current) use of anticoagulants; R31.9 Hematuria, unspecified; Z78.0 Asymptomatic menopausal state; R52 Pain, unspecified; M17.0 Bilateral primary osteoarthritis of knee; M19.072 Primary osteoarthritis, left ankle and foot; M19.071 Primary osteoarthritis, right ankle and foot; M16.0 Bilateral primary osteoarthritis of hip; Z79.891 Long term (current) use of opiate analgesic; R10.11 Right upper quadrant pain; F41.9 Anxiety disorder, unspecified
CPT/HCPCS: 71010; 72040; 74010; 74176; 76536; 80048; 80053; 80202; 81001; 82550; 82553; 82565; 82962; 83540; 83605; 83735; 83880; 84443; 84484; 84520; 85025; 87040; 87086; 93005; 94640; 94664; 96374; 96375; J1940; J0692; J1815; J2916; J3370; J3475; J7040; J7050; P9612

== ENCOUNTER 2017-03-21 11:35 | Emergency (ER) | END 2017-03-21 17:10 | disposition home or self-care (01) ==

== ENCOUNTER 2017-05-06 16:13 | Inpatient (IN) | END 2017-05-13 21:03 | DRG 292 ==

== ENCOUNTER 2018-01-31 14:37 | Inpatient (IN) | END 2018-02-04 21:00 | disposition home or self-care (01) | DRG 292 ==